=== PATIENT | female | born 1940 | race African-American/Black ===

== ENCOUNTER 2016-07-24 02:38 | Emergency (ER) | payer OTHER ==
[2016-07-24 02:54] VITALS: BP 148/74; PULSE 55; TEMP 97.5; BMI 21.6
--- NOTE | 2016-07-24 03:02 | PDOC ---
History of Present Illness - General History Source: EMS Exam Limitations: Dementia - History of Present Illness Initial Comments: 07/24/16 03:10 The patient is a 76 year old female with significant past medical history of severe alzheimer, hypertension, hyperlipidemia, and hypothyroidism who presents to the ED BIBA from [facility] with s/p unwitnessed fall. Unable to obtain history as patient has severe alzheimer. Unknown of LOC or trauma to the head. Allergies: NKDA Social History: No alcohol, tobacco, or drug use reported. Past Surgical History: None reported PCP: Dr. Khadra Jerez <Ana Conrad - Last Filed: 07/24/16 04:36> <Partha Marie - Last Filed: 07/24/16 04:42> - General Chief Complaint: Injury Stated Complaint: FALL Past History <Ana Conrad - Last Filed: 07/24/16 04:36> - Past Medical History Cardiac Disorders: Yes (bradycardia) Dementia: (ALZHEIMERS.) HTN: Yes Hypercholesterolemia: Yes Suicide Attempt (Hx): No Thyroid Disease: Yes (hypothyroid) Other medical history: aphasia, unsteady gait - Psycho/Social/Smoking Cessation Hx Anxiety: No Suicidal Ideation: No Smoking History: Never smoked Have you smoked in the past 12 months: No Hx Alcohol Use: No Drug/Substance Use Hx: No Substance Use Type: None <Partha Marie - Last Filed: 07/24/16 04:42> - Past Medical History Allergies/Adverse Reactions: Allergies Allergy/AdvReac Type Severity Reaction Status Date / Time strawberry Allergy Mild Hives Verified 07/24/16 02:51 tomato Allergy Mild Hives Verified 07/24/16 02:51 Home Medications: Ambulatory Orders Aspirin [ASA -] 81 mg PO DAILY 12/31/14 Atorvastatin Ca [Lipitor] 40 mg PO HS 04/18/16 Levothyroxine [Synthroid -] 50 mcg PO DAILY 04/18/16 Memantine HCl [Namenda Xr] 28 mg PO DAILY 04/18/16 Aspirin [ASA -] 81 mg PO DAILY tab.chew 04/21/16 Docusate Sodium [Colace -] 100 mg PO BID PRN #0 capsule 04/21/16 Docusate Sodium [Colace -] 100 mg PO Q12H PRN #0 capsule 04/21/16 Heparin - 5,000 unit SQ BID vial 04/21/16 Heparin - 5,000 unit SQ BID vial 04/21/16 Lisinopril [Prinivil] 20 mg PO DAILY tablet 04/21/16 Lisinopril [Prinivil] 20 mg PO DAILY #30 tablet 04/21/16 Polyethylene Glycol 3350 [Miralax 119 gm Btl -] 17 gm PO DAILY bottle 04/21/16 Review of Systems - Review of Systems Able to Perform ROS?: No Comments:: 07/24/16 03:11 Unable to obtain as patient has severe alzheimer. <Ana Conrad - Last Filed: 07/24/16 04:36> *Physical Exam - Vital Signs Last Vital Signs Temp Pulse Resp BP Pulse Ox 97.5 F L 55 L 18 148/74 100 07/24/16 02:51 07/24/16 02:51 07/24/16 02:51 07/24/16 02:51 07/24/16 02:51 - Physical Exam Comments: 07/24/16 03:11 GENERAL: Well developed, well nourished. Awake and alert. No acute distress. HEENT: Normocephalic, atraumatic. No racoon or dimas signs. PERRLA, EOMI. No conjunctival pallor. Sclera are non-icteric. No hemotympanum. Moist mucous membranes. Oropharynx is clear. NECK: Supple. Full ROM. No JVD. Carotid pulses 2+ and symmetric, without bruits. No thyromegaly. No lymphadenopathy. CARDIOVASCULAR: Regular rate and rhythm. No murmurs, rubs, or gallops. Distal pulses are 2+ and symmetric. PULMONARY: No evidence of respiratory distress. Lungs clear to auscultation bilaterally. No wheezing, rales or rhonchi. ABDOMINAL: Soft. Non-tender. Non-distended. No rebound or guarding. No organomegaly. Normoactive bowel sounds. MUSCULOSKELETAL Normal range of motion at all joints. No bony deformities or tenderness. No CVA tenderness. EXTREMITIES: No cyanosis. No clubbing. No edema. No calf tenderness. SKIN: Warm and dry. Normal capillary refill. No rashes. No jaundice. NEUROLOGICAL: Pt has severe alzheimer. Unable to answer questions. PSYCHIATRIC: Cooperative. Good eye contact. Appropriate mood and affect. <Ana Conrad - Last Filed: 07/24/16 04:36> - Vital Signs Last Vital Signs Temp Pulse Resp BP Pulse Ox 97.5 F L 55 L 18 148/74 100 07/24/16 02:51 07/24/16 02:51 07/24/16 02:51 07/24/16 02:51 07/24/16 02:51 <Partha Marie - Last Filed: 07/24/16 04:42> ED Treatment Course - LABORATORY CBC & Chemistry Diagram: 07/24/16 03:15 07/24/16 03:15 - RADIOLOGY Radiograph Interpretation: 07/24/16 04:36 EXAM: CT of the brain without contrast. Reviewed by Imaging corrections cadet: No gross intracranial hemorrhage, vasogenic edema/ gross contusion or fracture, assessment limited by motion. EXAM: CT of the cervical spine without contrast. Reviewed by Imaging corrections cadet: There is no fracture or facet subluxation; incidental developmental incomplete C1 dorsal arch. No prevertebral hematoma or gross acute epidural abnormality. Presumed degenerative T1/2 and T2/3 anterolisthesis; alignment is otherwise anatomic for the visualized volume, from skull base to T4/5. <Ana Conrad - Last Filed: 07/24/16 04:36> - LABORATORY CBC & Chemistry Diagram: 07/24/16 03:15 07/24/16 03:15 <Partha Marie - Last Filed: 07/24/16 04:42> *DC/Admit/Observation/Transfer - Attestations Scribe Attestion: 07/24/16 03:11 Documentation prepared by Ana Conrad, acting as medical physicist for Partha Marie MD, MD <Ana Conrad - Last Filed: 07/24/16 04:36> - Discharge Dispostion Admit: No <Partha Marie - Last Filed: 07/24/16 04:42> Diagnosis at time of Disposition: Injury of head Qualifiers: Encounter type: initial encounter Qualified Code(s): S09.90XA - Unspecified injury of head, initial encounter - Discharge Dispostion Disposition: HOME Condition at time of disposition: Stable - Referrals Referrals: Braulio Veronica MD [Primary Care Provider] -
[2016-07-24 03:29] LABS: EOSINOPHIL 1.2 % (0-4.5); MCH 30.8 pg (25.7-33.7); MCHC 32.9 g/dl (32.0-36.0); MEAN CELL VOLUME 93.5 fl (80-96); MEAN PLT VOLUME 9.7 fl (7.5-11.1); PLATELET COUNT 141 K/MM3 (134-434); RDW 13.8 % (11.6-15.6); WHITE BLOOD COUNT 4.1 K/mm3 (4.0-10.0)
[2016-07-24] MEDS ORDERED: MIDAZOLAM HCL 2 MG/2 ML SINGLE DOSE VIAL IVPUSH ONE (03:33)
[2016-07-24 03:42] LABS: INR 1.03 (0.82-1.09); PROTHROMBIN TIME (PATIENT) 11.3 SEC (9.98-11.88)
[2016-07-24] MEDS ORDERED: MIDAZOLAM HCL 2 MG/2 ML SINGLE DOSE VIAL ONE (03:44)
[2016-07-24 03:45] LABS: ACTIVATED PTT 35.2 SECONDS (26.9-34.4)
[2016-07-24 03:54] LABS: ALBUMIN 3.5 g/dl (3.4-5.0); ANION GAP 5 (8-16); BILIRUBIN,TOTAL 0.4 mg/dL (0.2-1.0); CALCIUM 9.3 mg/dL (8.5-10.1); CO2 32 mmol/L (21-32); CREATININE 0.9 mg/dL (0.55-1.02); GLUCOSE,RANDOM 91 mg/dL (74-106); SGOT/AST 13 U/L (15-37); SGPT/ALT 17 U/L (12-78)
[2016-07-24 03:55] LABS: ALK PHOS 106 U/L (45-117)
== END 2016-07-24 05:57 ==
LOC: JER 02:38
PROC: 3E033NZ Introduction of Analgesics, Hypnotics, Sedatives into Peripheral Vein, Percutaneous Approach (ICD-10-PCS; principal; 2016-07-24)
DX: S09.8XXA Other specified injuries of head, initial encounter (principal); W18.39XA Other fall on same level, initial encounter; Y93.89 Activity, other specified; Y92.128 Other place in nursing home as the place of occurrence of the external cause; I10 Essential (primary) hypertension; E78.5 Hyperlipidemia, unspecified; E78.00 Pure hypercholesterolemia, unspecified; E03.9 Hypothyroidism, unspecified; G30.8 Other Alzheimer's disease; F02.80 Dementia in other diseases classified elsewhere, unspecified severity, without behavioral disturbance, psychotic disturbance, mood disturbance, and anxiety
CPT/HCPCS: 36415; 70450-TC; 72125-TC; 72170-TC; 80053; 85025; 85610; 85730; 96374; 99281-25

== ENCOUNTER 2017-04-17 10:53 | Emergency (ER) | payer OTHER ==
[2017-04-17 11:05] VITALS: TEMP 98.5; BMI 20.1
[2017-04-17] MEDS ORDERED: FLUORESCEIN NA 1 EA STRIP OU ONE (11:47)
[2017-04-17] MEDS ORDERED: FLUORESCEIN NA 1 EA STRIP ONE (11:50)
[2017-04-17] MEDS ORDERED: TETRACAINE 0.5% HCL 0.6ML DROPPER.BOTTLE OU ONE (11:51)
[2017-04-17] MEDS ORDERED: TETRACAINE 0.5% OPHTH SOLN 2 ML BOTTLE ONE (11:51)
--- NOTE | 2017-04-17 12:01 | PDOC ---
History of Present Illness <Salazar Keyes - Last Filed: 04/17/17 12:00> <Nyla Kelsey - Last Filed: 04/17/17 12:14> - General Chief Complaint: Eye Problem Stated Complaint: EYE PROBLEM Time Seen by Provider: 04/17/17 11:12 Past History - Past Medical History Cardiac Disorders: Yes (bradycardia) COPD: No Dementia: (ALZHEIMERS.) HTN: Yes Hypercholesterolemia: Yes Thyroid Disease: Yes (hypothyroid) Other medical history: PARKINSONS. - Suicide/Smoking/Psychosocial Hx Smoking History: Never smoked Have you smoked in the past 12 months: No Hx Alcohol Use: No Drug/Substance Use Hx: No Substance Use Type: None <Salazar Keyes - Last Filed: 04/17/17 12:00> <Nyla Kelsey - Last Filed: 04/17/17 12:14> - Past Medical History Allergies/Adverse Reactions: Allergies Allergy/AdvReac Type Severity Reaction Status Date / Time strawberry Allergy Mild Hives Verified 04/17/17 11:05 tomato Allergy Mild Hives Verified 04/17/17 11:05 No Known Drug Allergies Allergy Verified 04/17/17 11:05 Home Medications: Ambulatory Orders Aspirin [ASA -] 81 mg PO DAILY 04/17/17 Atorvastatin Ca [Lipitor] 40 mg PO HS 04/17/17 Levothyroxine [Synthroid -] 50 mcg PO DAILY 04/17/17 Lisinopril/Hydrochlorothiazide [Lisinopril-Hctz 20-12.5 mg Tab] 1 each PO DAILY 04/17/17 Memantine HCl [Namenda Xr] 28 mg PO DAILY 04/17/17 Polyethylene Glycol 3350 [Miralax (For Daily Use) -] 17 gm PO DAILY 04/17/17 Sennosides [Senna Concentrate] 8.6 mg PO HS 04/17/17 *Physical Exam - Vital Signs Last Vital Signs Temp Pulse Resp BP Pulse Ox 98.5 F 100 H 18 122/69 100 04/17/17 11:01 04/17/17 11:01 04/17/17 11:01 04/17/17 11:01 04/17/17 11:01 <Salazar Keyes - Last Filed: 04/17/17 12:00> - Vital Signs Last Vital Signs Temp Pulse Resp BP Pulse Ox 98.5 F 100 H 18 122/69 100 04/17/17 11:01 04/17/17 11:01 04/17/17 11:01 04/17/17 11:01 04/17/17 11:01 <Nyla Kelsey - Last Filed: 04/17/17 12:14> ED Treatment Course - Medications Given in the ED: ED Medications Discontinued Medications Generic Name Dose Route Start Last Admin Trade Name Freq PRN Reason Stop Dose Admin Fluorescein Sodium 0 ea 04/17/17 11:47 04/17/17 11:50 Fluorets - OU 04/17/17 11:48 1 ea ONCE ONE Administration Tetracaine HCl 1 drop 04/17/17 11:51 04/17/17 11:52 Tetravisc 0.5% Eye Drops - OU 04/17/17 11:52 1 drop ONCE ONE Administration <Salazar Keyes - Last Filed: 04/17/17 12:00> - Medications Given in the ED: ED Medications Discontinued Medications Generic Name Dose Route Start Last Admin Trade Name Freq PRN Reason Stop Dose Admin Fluorescein Sodium 0 ea 04/17/17 11:47 04/17/17 11:50 Fluorets - OU 04/17/17 11:48 1 ea ONCE ONE Administration Tetracaine HCl 1 drop 04/17/17 11:51 04/17/17 11:52 Tetravisc 0.5% Eye Drops - OU 04/17/17 11:52 1 drop ONCE ONE Administration <Nyla Kelsey - Last Filed: 04/17/17 12:14> Medical Decision Making - Medical Decision Making 04/17/17 12:08 77-year-old female presents with bilateral sub-conjunctival hemorrhage. Fluorescein testing is negative for abrasion or defect. Will discharge patient with artificial tears, as the patient's daughter reports that the patient is frequently rubbing her eyes. I discussed the physical exam findings, ancillary test results and final diagnoses with the patient. I answered all of the patient's questions. The patient was satisfied with the care received and felt comfortable with the discharge plan and treatment plan. The patient will call their primary care physician within 24 hours to arrange follow-up and will return to the Emergency Department with any new, persistent or worsening symptoms. <Nyla Kelsey - Last Filed: 04/17/17 12:14> *DC/Admit/Observation/Transfer <Salazar Keyes - Last Filed: 04/17/17 12:00> - Discharge Dispostion Admit: No - Attestations Physician Attestion: 04/17/17 12:14 I, Dr. Nyla Kelsey MD, attest that this document has been prepared under my direction and personally reviewed by me in its entirety. I further attest, that it accurately reflects all work, treatment, procedures and medical decision -making performed by me. <Nyla Kelsey - Last Filed: 04/17/17 12:14> Diagnosis at time of Disposition: Subconjunctival hemorrhage of both eyes - Discharge Dispostion Disposition: HOME Condition at time of disposition: Stable - Referrals Referrals: Khadra Montanez MD [Primary Care Provider] - - Patient Instructions - Post Discharge Activity
--- NOTE | 2017-04-17 12:22 | PDOC ---
History of Present Illness - General History Source: Family Exam Limitations: Other - History of Present Illness Initial Comments: 04/17/17 12:38 77 year old female, Alzheimers dementia, HTN, HLD, hypothyroidism, who presents to the emergency room with complaining of redness in her eyes bilaterally x 3days. The patient is nonverbal and history was obtained from her daughter. She states that her left eye appeared bloodshot 3 days ago and has been increasingly red since. Her right eye also became blood shot yesterday, which concerned her daughter so she brought her to the ER. The daughter reports the patient has dry eyes and they have a dog and cat at home which cause the patient to occasionally rub her eyes. She notes that this has happened to the patient before and the redness resolved on its own. Denies recent illness. Denies vomiting, cough, sneezing, constipation. Pt had normal exam at the dozer operator 1 month ago. Allergies: NKDA PCP: Dr. Khadra Longo <Yamile Leung - Last Filed: 04/17/17 12:38> <Nyla Kelsey - Last Filed: 04/17/17 14:10> - General Chief Complaint: Eye Problem Stated Complaint: EYE PROBLEM Time Seen by Provider: 04/17/17 11:12 Past History <Yamile Leung - Last Filed: 04/17/17 12:38> - Past Medical History Cardiac Disorders: Yes (bradycardia) COPD: No Dementia: (ALZHEIMERS.) HTN: Yes Hypercholesterolemia: Yes Thyroid Disease: Yes (hypothyroid) Other medical history: PARKINSONS. - Suicide/Smoking/Psychosocial Hx Smoking History: Never smoked Have you smoked in the past 12 months: No Hx Alcohol Use: No Drug/Substance Use Hx: No Substance Use Type: None <Nyla Kelsey - Last Filed: 04/17/17 14:10> - Past Medical History Allergies/Adverse Reactions: Allergies Allergy/AdvReac Type Severity Reaction Status Date / Time strawberry Allergy Mild Hives Verified 04/17/17 11:05 tomato Allergy Mild Hives Verified 04/17/17 11:05 No Known Drug Allergies Allergy Verified 04/17/17 11:05 Home Medications: Ambulatory Orders Aspirin [ASA -] 81 mg PO DAILY 04/17/17 Atorvastatin Ca [Lipitor] 40 mg PO HS 04/17/17 Dextran 70/Hypromellose/Pf [Artificial Tears Drops] 1 each OP BID #30 droperette 04/17/17 Levothyroxine [Synthroid -] 50 mcg PO DAILY 04/17/17 Lisinopril/Hydrochlorothiazide [Lisinopril-Hctz 20-12.5 mg Tab] 1 each PO DAILY 04/17/17 Memantine HCl [Namenda Xr] 28 mg PO DAILY 04/17/17 Polyethylene Glycol 3350 [Miralax (For Daily Use) -] 17 gm PO DAILY 04/17/17 Sennosides [Senna Concentrate] 8.6 mg PO HS 04/17/17 Review of Systems - Review of Systems Able to Perform ROS?: No (Pt is nonverbal) <Yamile Leung - Last Filed: 04/17/17 12:38> *Physical Exam - Vital Signs Last Vital Signs Temp Pulse Resp BP Pulse Ox 98.5 F 100 H 18 122/69 100 04/17/17 11:01 04/17/17 11:01 04/17/17 11:01 04/17/17 11:01 04/17/17 11:01 - Physical Exam Comments: 04/17/17 12:39 GENERAL: Awake, alert, nonverbal, in no acute distress. Pt visualized rubbing eyes during exam multiple times. HEAD: No signs of trauma EYES: PERRLA, EOMI, Fluorescene testing with no evidence of abrasion or defect, negative Dennis's test. Unable to test visual acuity as pt is non verbal. No hyphema visualized. OS: subconjunctival hemorrhage on the lateral + inferior aspect of the eye OD: medial subconjunctival hemorrhage ENT: Auricles normal inspection, hearing grossly normal, nares patent, oropharynx clear without exudates. Moist mucosa NECK: Normal ROM, supple, no lymphadenopathy, JVD, or masses LUNGS: Breath sounds equal, clear to auscultation bilaterally. No wheezes, and no crackles HEART: Regular rate and rhythm, normal S1 and S2, no murmurs, rubs or gallops NEUROLOGICAL: Nonverbal, cranial nerves grossly intact, normal tone, moving all 4 extremities SKIN: Warm, Dry, normal turgor, no rashes or lesions noted. <Yamile Leung - Last Filed: 04/17/17 12:38> - Vital Signs Last Vital Signs Temp Pulse Resp BP Pulse Ox 98.5 F 100 H 18 122/69 100 04/17/17 11:01 04/17/17 11:01 04/17/17 11:01 04/17/17 11:01 04/17/17 11:01 <Nyla Kelsey - Last Filed: 04/17/17 14:10> ED Treatment Course - Medications Given in the ED: ED Medications Discontinued Medications Generic Name Dose Route Start Last Admin Trade Name Freq PRN Reason Stop Dose Admin Fluorescein Sodium 0 ea 04/17/17 11:47 04/17/17 11:50 Fluorets - OU 04/17/17 11:48 1 ea ONCE ONE Administration Tetracaine HCl 1 drop 04/17/17 11:51 04/17/17 11:52 Tetravisc 0.5% Eye Drops - OU 04/17/17 11:52 1 drop ONCE ONE Administration <Yamile Leung - Last Filed: 04/17/17 12:38> - Medications Given in the ED: ED Medications Discontinued Medications Generic Name Dose Route Start Last Admin Trade Name Freq PRN Reason Stop Dose Admin Fluorescein Sodium 0 ea 04/17/17 11:47 04/17/17 11:50 Fluorets - OU 04/17/17 11:48 1 ea ONCE ONE Administration Tetracaine HCl 1 drop 04/17/17 11:51 04/17/17 11:52 Tetravisc 0.5% Eye Drops - OU 04/17/17 11:52 1 drop ONCE ONE Administration <Nyla Kelsey - Last Filed: 04/17/17 14:10> Medical Decision Making - Medical Decision Making 04/17/17 12:21 77-year-old female presents with bilateral sub-conjunctival hemorrhage patient likely due to frequently rubbing her eyes. Fluorescein testing is negative for abrasion or defect. Will discharge patient with artificial tears for dryness. I discussed the physical exam findings, ancillary test results and final diagnoses with the patient. I answered all of the patient's questions. The patient was satisfied with the care received and felt comfortable with the discharge plan and treatment plan. The patient will call their primary care physician within 24 hours to arrange follow-up and will return to the Emergency Department with any new, persistent or worsening symptoms. <Nyla Kelsey - Last Filed: 04/17/17 14:10> *DC/Admit/Observation/Transfer - Attestations Scribe Attestion: 04/17/17 12:39 Documentation prepared by BALAJI Delacruz, acting as medical asst for Nyla Kelsey MD. <Yamile Leung - Last Filed: 04/17/17 12:38> - Attestations Physician Attestion: 04/17/17 12:21 I, Dr. Nyla Kelsey MD, attest that this document has been prepared under my direction and personally reviewed by me in its entirety. I further attest, that it accurately reflects all work, treatment, procedures and medical decision -making performed by me. <Nyla Kelsey - Last Filed: 04/17/17 14:10> Diagnosis at time of Disposition: Subconjunctival hemorrhage of both eyes - Discharge Dispostion Disposition: HOME Condition at time of disposition: Stable - Prescriptions Prescriptions: Dextran 70/Hypromellose/Pf [Artificial Tears Drops] 1 each OP BID #30 droperette - Referrals Referrals: Khadra Montanez MD [Primary Care Provider] - - Patient Instructions Printed Discharge Instructions: DI for Subconjunctival Hemorrhage Additional Instructions: Please follow up with your primary care doctor and dozer operator within 1 week. Return to the emergency department if Ms. Ng has any new, worsening, or concerning symptoms. - Post Discharge Activity
[2017-04-17 12:38] VITALS: BP 118/70; PULSE 94
== END 2017-04-17 12:59 | disposition home or self-care (01) ==
LOC: JER 10:53
DX: H11.33 Conjunctival hemorrhage, bilateral (principal); G30.9 Alzheimer's disease, unspecified; F02.80 Dementia in other diseases classified elsewhere, unspecified severity, without behavioral disturbance, psychotic disturbance, mood disturbance, and anxiety; G20 Parkinson's disease; I10 Essential (primary) hypertension; E78.00 Pure hypercholesterolemia, unspecified; E03.9 Hypothyroidism, unspecified
CPT/HCPCS: 99282-25

== ENCOUNTER 2018-02-19 14:03 | Emergency (ER) | payer OTHER ==
--- NOTE | 2018-02-19 14:23 | PDOC ---
History of Present Illness - General Stated Complaint: Syncope/Near Syncope Time Seen by Provider: 02/19/18 14:11 - History of Present Illness Initial Comments: 02/19/18 14:12 78 year old female with a significant h/o HTN, HLD, bradycardia, Alzheimer's Dementia, hypothyroidism BIBA with syncope. Patient non verbal, and non communicative at baseline. Home health aide reports patient ambulating from bathroom, to kitchen, when she experienced sudden onset lightheadedness, and appeared "faint." Home health aide assisted patient to floor, in assisted supine positioning. She did not witness convulsions, tongue biting, urinary incontinence, and patient remained lethargic appearing for minutes of unknown duration. Patient in normal state of health today. She took her daily Levothyroxine. Daughter at bedside reports similar h/o syncope . Patient family denies head/neck trauma, LOC, N/V, F/C, orthopnea, PND, leg swelling, cough, CP, SOB, urinary complaints, abdominal pain, diarrhea, constipation, weakness. PMHx: as noted above. Daughter denies h/o ACS/MD, PE, CVA/TIA. ROS: as noted SHx: Denies Etoh, IVDA, tobacco Allergies: NKDA PMD: Dr. Gonsalez Past History - Past Medical History Allergies/Adverse Reactions: Allergies Allergy/AdvReac Type Severity Reaction Status Date / Time strawberry Allergy Mild Hives Verified 04/17/17 11:05 tomato Allergy Mild Hives Verified 04/17/17 11:05 No Known Drug Allergies Allergy Verified 04/17/17 11:05 Home Medications: Ambulatory Orders Aspirin [ASA -] 81 mg PO DAILY 04/17/17 Atorvastatin Ca [Lipitor] 40 mg PO HS 04/17/17 Dextran 70/Hypromellose/Pf [Artificial Tears Drops] 1 each OP BID #30 droperette 04/17/17 Levothyroxine [Synthroid -] 50 mcg PO DAILY 04/17/17 Lisinopril/Hydrochlorothiazide [Lisinopril-Hctz 20-12.5 mg Tab] 1 each PO DAILY 04/17/17 Memantine HCl [Namenda Xr] 28 mg PO DAILY 04/17/17 Polyethylene Glycol 3350 [Miralax (For Daily Use) -] 17 gm PO DAILY 04/17/17 Sennosides [Senna Concentrate] 8.6 mg PO HS 04/17/17 Cephalexin Monohydrate [Keflex -] 500 mg PO BID #14 capsule MDD 2 tab 02/19/18 Cardiac Disorders: Yes (bradycardia) COPD: No Dementia: (ALZHEIMERS.) HTN: Yes Hypercholesterolemia: Yes Thyroid Disease: Yes (hypothyroid) - Suicide/Smoking/Psychosocial Hx Smoking History: Never smoked Have you smoked in the past 12 months: No Hx Alcohol Use: No Drug/Substance Use Hx: No Substance Use Type: None Review of Systems - Review of Systems Comments:: 02/19/18 14:27 Unable to obtain, non verbal, and non communicative at baseline. *Physical Exam - Physical Exam Comments: 02/19/18 14:28 GENERAL: Awake, alert, and fully oriented, in no acute distress. Patient non verbal at baseline. HEAD: No signs of trauma, normocephalic, atraumatic EYES: PERRLA, EOMI, sclera anicteric, conjunctiva clear ENT: Auricles normal inspection, hearing grossly normal, nares patent, oropharynx clear without exudates. Moist mucosa NECK: Normal ROM, supple, no lymphadenopathy, JVD, or masses LUNGS: No distress, speaks full sentences, clear to auscultation bilaterally HEART: Regular rate and rhythm, normal S1 and S2, no murmurs, rubs or gallops, peripheral pulses normal and equal bilaterally. ABDOMEN: Soft, nontender, normoactive bowel sounds. No guarding, no rebound. No masses. Neg CVA ttp. EXTREMITIES : Normal inspection, Normal range of motion, no edema. No clubbing or cyanosis. NEUROLOGICAL: Cranial nerves II through XII grossly intact. No focal sensorimotor deficits. SKIN: Warm, Dry, normal turgor, no rashes or lesions noted ED Treatment Course - LABORATORY CBC & Chemistry Diagram: 02/19/18 15:30 02/19/18 16:20 Medical Decision Making - Medical Decision Making 02/19/18 14:26 78 year old female with a significant h/o HTN, HLD, bradycardia, Alzheimer's Dementia, hypothyroidism BIBA with syncope. Patient noted to be slightly hypotensive SBP 90, received 500 cc NS in route to hospital. VSS, AF. ACS/MD r/ o. R/o VBI/TIA. Will consider hypoglycemia, hypovolemia, cardiac dysarrythmia, electrolyte abnml, toxic and metabolic derangements, acid-base disturbances, and infection. ED Course: CBC, CMP, Cardiac Pr. Pt/INR, UA, Urine Cx. EKG, CXR [facility] 02/19/18 15:12 EKG: Sinus bradycardia 59 with absent acute JUVE, STD. T wave similar to prior EKG with T wave inv V3, flattened T Waves V4-V6. 02/19/18 16:20 CBC: Unremarkable 02/19/18 17:28 CXR: No acute pathology. 02/19/18 17:52 CMP: Unremarkable 02/19/18 17:53 Trop: Neg 02/19/18 18:25 CTH: No acute pathology. 02/19/18 18:53 UA: 2+ Leuk, 1+ blood, 89 wbc, 7 RBC. Keflex sent to pharmacy Pt. stable for d/c with return precautions. Advised to f/u with PMD. *DC/Admit/Observation/Transfer Diagnosis at time of Disposition: Syncope Qualifiers: Syncope type: unspecified Qualified Code(s): R55 - Syncope and collapse - Discharge Dispostion Condition at time of disposition: Stable - Prescriptions Prescriptions: Cephalexin Monohydrate [Keflex -] 500 mg PO BID #14 capsule MDD 2 tab - Referrals Referrals: Talon Gonsalez MD [Primary Care Provider] - - Patient Instructions Printed Discharge Instructions: DI for Syncope in Adults (Fainting), DI for Urinary Tract Infection (UTI) Additional Instructions: Please return to the emergency department with any new or worsening symptoms or concerns. Please follow up with your primary care physician within 72 hours. Keflex sent to pharmacy. Please take Keflex two times a day for 7 days. - Post Discharge Activity - Attestations Physician Attestion: 02/19/18 14:45 I attest to the information provided in this note.
[2018-02-19 14:37] VITALS: BMI 20.9
--- NOTE | 2018-02-19 15:02 | PDOC ---
Attending Attestation - HPI HPI: The patient is a 78 year old female with a significant PMHx of HTN, HLD, bradycardia, Alzheimer's Dementia, and hypothyroidism, who was BIBA s/p near syncopal episode. Patient non verbal, and non communicative at baseline. As per LIBRARIAN SPECIALIST, patient felt lightheaded on her way to the kitchen. Her LIBRARIAN SPECIALIST helped her to the ground and she remained lethargic and seemed altered mentally with a blank stare on her face. Daughter reports similar h/o syncope 1 month ago. <Kaitlynn Mckeon - Last Filed: 02/19/18 16:04> - Resident Resident Name: Luis Felipe Lambert - ED Attending Attestation I have performed the following: I have examined & evaluated the patient, The case was reviewed & discussed with the resident, I agree w/resident's findings & plan, Exceptions are as noted - Physicial Exam PE: 02/19/18 16:06 Ms Ng is Awake and attends to examiner She is in no distress She is independently sitting up and moving all extremities RRR CTA no abd tenderness to palpation - Medical Decision Making 02/19/18 16:06 78 yo F who presents again to the ER s/p ?presyncopal event will do basic labs, trop EKG CT head given IVF Re assess Pt may be able to discharged to home (pt daughter refusing admission) 02/19/18 16:13 EKG: Sinus rhythm, rate of 59 bpm, axis nml, no st elevations or depressions, t wave inversion v3, v4 (similar to prior EKG) Pt signed out to Dr. Cruz <Jenniffer Arce - Last Filed: 02/21/18 10:21>
[2018-02-19 15:47] LABS: BASO % 0.3 % (0-2.0); EOS % 0.5 % (0-4.5); HEMATOCRIT 30.9 % (32.4-45.2); HEMOGLOBIN 10.2 GM/dL (10.7-15.3); LYMPH % 10.6 % (8-40); MCH 31.4 pg (25.7-33.7); MCHC 33.1 g/dl (32.0-36.0); MEAN CELL VOLUME 94.8 fl (80-96); MEAN PLT VOLUME 9.5 fl (7.5-11.1); MONO % 6.2 % (3.8-10.2); NEUT % 82.4 % (42.8-82.8); PLATELET COUNT 166 K/MM3 (134-434); RBC 3.25 M/mm3 (3.60-5.2); WHITE BLOOD COUNT 8.2 K/mm3 (4.0-10.0)
[2018-02-19 15:57] LABS: INR 1.02 (0.83-1.09); PROTHROMBIN TIME (PATIENT) 11.5 SEC (9.7-13.0)
--- NOTE | 2018-02-19 16:59 | PDOC ---
*Physical Exam - Vital Signs Last Vital Signs Temp Pulse Resp BP Pulse Ox 98.8 F 64 20 146/77 97 02/19/18 14:34 02/19/18 14:34 02/19/18 14:34 02/19/18 14:34 02/19/18 14:34 - Physical Exam Comments: 02/19/18 18:30 Gen: awake, nonverbal at baseline, at baseline MS heart: +s1s2 reg Lungs: cta b/l abd: soft, nt/nd +bs ext: no c/c/e, radial and pedal pulses intact, moving all extremities, ambulates with assistance neuro: at baseline MS, nonverbal at baseline, moving all extremities, no focal deficits ED Treatment Course - LABORATORY CBC & Chemistry Diagram: 02/19/18 15:30 02/19/18 16:20 - ADDITIONAL ORDERS Additional order review: Laboratory Results 02/19/18 02/19/18 13:30 13:30 PT with INR 11.50 INR 1.02 Creatine Kinase Cancelled Troponin I Cancelled 02/19/18 15:30 RBC 3.25 L MCV 94.8 MCHC 33.1 RDW 15.0 MPV 9.5 Neutrophils % 82.4 Lymphocytes % 10.6 Monocytes % 6.2 Eosinophils % 0.5 Basophils % 0.3 Medical Decision Making - Medical Decision Making 02/19/18 18:36 a/p: 78yo female with an episode of becoming nonresponsive -hx of UTI -had low bp earlier -pt signed out pending labs and ct -head ct negative for acute findings cxr negative for acute findings ekg is nonacute labs reviewed - normal wbc pt with a uti after straight cath, culture pending -will give keflex for uti at home resident discussed the findings with the daughter who is requesting to take hte patient home *DC/Admit/Observation/Transfer Diagnosis at time of Disposition: Syncope Qualifiers: Syncope type: unspecified Qualified Code(s): R55 - Syncope and collapse - Discharge Dispostion Condition at time of disposition: Stable - Referrals Referrals: Talon Gonsalez MD [Primary Care Provider] - - Patient Instructions Printed Discharge Instructions: DI for Syncope in Adults (Fainting) Additional Instructions: Please return to the emergency department with any new or worsening symptoms or concerns. Please follow up with your primary care physician within 72 hours. - Post Discharge Activity
[2018-02-19 17:47] LABS: ALBUMIN 3.4 g/dl (3.4-5.0); ALK PHOS 91 U/L (45-117); ANION GAP 11 MMOL/L (8-16); BILIRUBIN,TOTAL 0.4 mg/dL (0.2-1); BLOOD UREA NITROGEN 30 mg/dL (7-18); CALCIUM 9.2 mg/dL (8.5-10.1); CHLORIDE 113 mmol/L (98-107); CO2 21 mmol/L (21-32); CREATININE 0.8 mg/dL (0.55-1.3); GLUCOSE,RANDOM 83 mg/dL (74-106); POTASSIUM 4.2 mmol/L (3.5-5.1); SGOT/AST 22 U/L (15-37); SGPT/ALT 14 U/L (13-61); SODIUM 145 mmol/L (136-145); TOT PROT 7.5 g/dl (6.4-8.2)
[2018-02-19 18:26] LABS: URINE APPEARANCE SLCLOUDY; URINE BILIRUBIN NEGATIVE (<2.0 mg/dL); URINE COLOR LTYELLOW; URINE GLUCOSE (UA) NEGATIVE (NEGATIVE); URINE KETONE NEGATIVE (NEGATIVE); URINE NITRITE NEGATIVE (NEGATIVE); URINE PROTEIN NEGATIVE (NEGATIVE); URINE UROBILINOGEN NEGATIVE mg/dL (0.2-1.0)
[2018-02-19 18:27] LABS: URINE LEUK ESTERASE 2+ (NEGATIVE)
[2018-02-19 18:35] LABS: EPI CELLS RARE /HPF (FEW); URINE MUCUS RARE
[2018-02-19] MEDS ORDERED: CEPHALEXIN MONOHYDRATE 500 MG CAPSULE (UD) PO ONE (18:39)
[2018-02-19] MEDS ORDERED: CEPHALEXIN MONOHYDRATE 500 MG CAPSULE (UD) ONE (18:47)
[2018-02-19 19:02] VITALS: BP 148/68; PULSE 58; TEMP 98.1
--- NOTE | 2018-02-20 09:35 | EKG ---
Test Reason : Blood Pressure : / mmHG Vent. Rate : 059 BPM Atrial Rate : 059 BPM P-R Int : 124 ms QRS Dur : 094 ms QT Int : 436 ms P-R-T Axes : 052 066 037 degrees QTc Int : 431 ms SINUS BRADYCARDIA MODERATE VOLTAGE CRITERIA FOR LVH, MAY BE NORMAL VARIANT LATERAL INFARCT , AGE UNDETERMINED ABNORMAL ECG WHEN COMPARED WITH ECG OF 24-NOV-2017 14:51, NO SIGNIFICANT CHANGE WAS FOUND Confirmed by NUNU BALL, DALTON ([id number]) on 02/20/2018 9:35:44 AM Referred By: Confirmed By:DALTON EDDY MD
== END 2018-02-19 19:02 | disposition home or self-care (01) ==
LOC: JER 14:03
DX: R55 Syncope and collapse (principal); G30.9 Alzheimer's disease, unspecified; F02.80 Dementia in other diseases classified elsewhere, unspecified severity, without behavioral disturbance, psychotic disturbance, mood disturbance, and anxiety; F05 Delirium due to known physiological condition; I10 Essential (primary) hypertension; E78.5 Hyperlipidemia, unspecified; E03.9 Hypothyroidism, unspecified
CPT/HCPCS: 36415; 70450-TC; 71045-TC-FY; 80053; 81003; 81015; 82550; 84484; 85025; 85610; 87086; 93005; 93010; 99284-25

== ENCOUNTER 2018-03-06 11:55 | Emergency (ER) | payer OTHER ==
[2018-03-06 12:32] VITALS: BMI 21.7
--- NOTE | 2018-03-06 12:59 | PDOC ---
Attending Attestation - Resident Resident Name: Bell Estrella - ED Attending Attestation I have performed the following: I have examined & evaluated the patient, The case was reviewed & discussed with the resident, I agree w/resident's findings & plan, Exceptions are as noted - HPI HPI: 03/06/18 12:57 Ms Ng is a 78 yo F h/o HTN, bradycardia, parkinsons and alzheimers Two days ago, pt went for a walk, pt had difficulty sitting fell forward and struck her head At the time pt was well, no complaints Today, while in the car, pt began vomiting x 2 Emesis is yellow, no blood - Physicial Exam PE: 03/06/18 17:45 Pt is awake and alert on my examination She is in no distress She is independently sitting up and moving all extremities RRR CTA no abd tenderness to palpation - Medical Decision Making EKG: Poor quality due to patient movement HR 48, axis nml, intervals nml, no st elevations or depression, t waves upright , artifact at baseline 03/06/18 17:46 Laboratory Tests 02/19/18 03/06/18 03/06/18 14:12 13:21 13:21 WBC 6.7 Hgb 10.4 L Hct 32.7 Plt Count 159 BUN 30 H 27 H Creatinine 0.8 0.9 Troponin I < 0.02 Urine Blood Urine Nitrite Ur Leukocyte Esterase 03/06/18 15:22 WBC Hgb Hct Plt Count BUN Creatinine Troponin I Urine Blood Negative Urine Nitrite Negative Ur Leukocyte Esterase Negative CT: no significant intracranial pathology Per daughter, pt's primary child care lead teacher, pt is back to baseline She would like to be discharged to home 03/06/18 17:47 03/06/18 17:52 Discharge Disposition - Diagnosis Head trauma Qualifiers: Encounter type: initial encounter Qualified Code(s): S09.90XA - Unspecified injury of head, initial encounter Nausea & vomiting Qualifiers: Vomiting type: unspecified Vomiting Intractability: non-intractable Qualified Code(s): R11.2 - Nausea with vomiting, unspecified - Discharge Dispostion Disposition: HOME Condition at time of disposition: Stable Last Admission D/C Date: 04/23/16 Decision to Admit order: No - Referrals Referrals: Talon Gonsalez MD [Primary Care Provider] - - Patient Instructions Printed Discharge Instructions: DI for Closed Head Injury, DI for Nausea -- Adult, DI for Vomiting -- Adult Additional Instructions: Please read the [facility] ED Care Sheets describing your diagnosis. PLEASE NOTE we suggest at a minimum that you review all symptoms and final test results with a physician that will provide ongoing care for you. THANK YOU for allowing us to help begin your care of this latest issue. Keep in mind the treatment performed in the Emergency Department is NOT complete until you have followed up with your Doctor. We want you to return to the ED as soon as possible if symptoms get worse or if you have any problems whatsoever. - Post Discharge Activity
--- NOTE | 2018-03-06 13:37 | PDOC ---
History of Present Illness - General Chief Complaint: Nausea/Vomiting Stated Complaint: Nausea/Vomiting Time Seen by Provider: 03/06/18 12:48 - History of Present Illness Initial Comments: 03/06/18 13:37 The patient is a 78 year old female with a PMH of Alzheimer's dementia (non- verbal @ baseline), HTN, HLD, hypothyroidism who presents to the ED with 2 episodes of yellowish colored emesis. Patient's daughter @ bedside assists in history. Notes patient had two episodes of emesis earlier today. Has been tolerating PO intake. Last BM was this morning and was normal. Patient's daughter brought patient to ED because she noted that patient fell earlier this week and hit her head. After patient fell, daughter observed her for three hours and noted no mental status changes. Today, patient had two episodes of NBNB emesis prompting daughter to bring her to the ED. NKDA Surgical: denies Social: denies toxic habits PMD: Dr. Khadra Longo Past History - Past Medical History Allergies/Adverse Reactions: Allergies Allergy/AdvReac Type Severity Reaction Status Date / Time strawberry Allergy Mild Hives Verified 04/17/17 11:05 tomato Allergy Mild Hives Verified 04/17/17 11:05 No Known Drug Allergies Allergy Verified 04/17/17 11:05 Home Medications: Ambulatory Orders Aspirin [ASA -] 81 mg PO DAILY 04/17/17 Atorvastatin Ca [Lipitor] 40 mg PO HS 04/17/17 Dextran 70/Hypromellose/Pf [Artificial Tears Drops] 1 each OP BID #30 droperette 04/17/17 Levothyroxine [Synthroid -] 50 mcg PO DAILY 04/17/17 Lisinopril/Hydrochlorothiazide [Lisinopril-Hctz 20-12.5 mg Tab] 1 each PO DAILY 04/17/17 Memantine HCl [Namenda Xr] 28 mg PO DAILY 04/17/17 Polyethylene Glycol 3350 [Miralax (For Daily Use) -] 17 gm PO DAILY 04/17/17 Sennosides [Senna Concentrate] 8.6 mg PO HS 04/17/17 Cardiac Disorders: Yes (bradycardia) COPD: No Dementia: Yes (ALZHEIMERS.) HTN: Yes Hypercholesterolemia: Yes Thyroid Disease: Yes (hypothyroid) - Suicide/Smoking/Psychosocial Hx Smoking History: Never smoked Have you smoked in the past 12 months: No Information on smoking cessation initiated: No Hx Alcohol Use: No Drug/Substance Use Hx: No Substance Use Type: None Review of Systems - Review of Systems Able to Perform ROS?: No (clinical condition) *Physical Exam - Vital Signs Last Vital Signs Temp Pulse Resp BP Pulse Ox 98.5 F 57 L 18 196/83 H 99 03/06/18 12:51 03/06/18 12:30 03/06/18 12:30 03/06/18 12:30 03/06/18 12:30 - Physical Exam General Appearance: Yes: Nourished, Appropriately Dressed HEENT: positive: Normal Voice, Hearing Grossly Normal. negative: Lesions, Lehman Neck: positive: Trachea midline, Supple Respiratory/Chest: positive: Lungs Clear, Normal Breath Sounds Cardiovascular: positive: S1, S2. negative: Edema, JVD Vascular Pulses: Dorsalis-Pedis (R): 3+, Doralis-Pedis (L): 3+ Gastrointestinal/Abdominal: positive: Normal Bowel Sounds, Soft Extremity: positive: Normal Capillary Refill, Normal Inspection, Pelvis Stable. negative: Coldness, Cyanosis Integumentary: positive: Normal Color, Dry, Warm Neurologic: positive: Alert, Responsive ED Treatment Course - LABORATORY CBC & Chemistry Diagram: 03/06/18 13:21 03/06/18 13:21 - RADIOLOGY Radiology Studies Ordered: Category Date Time Status HEAD CT WITHOUT CONTRAST [CT] Stat CT Scan 03/06/18 12:57 Ordered Medical Decision Making - Medical Decision Making 03/06/18 13:38 78 year old female with nausea/vomiting. H/o fall with head trauma 3 days previous. Drowsy but arousable at presentation (baseline). Has been ambulating and was at baseline post fall. Will CT head to r/o bleed as well as basic labs, lipase, UA to r/o other causes of fall. 03/06/18 14:36 Labs unremarkable, Hb stable @ [address] negative for acute bleed/ischemia Will discharge home with return precautions and PMD follow-up. *DC/Admit/Observation/Transfer Diagnosis at time of Disposition: Nausea & vomiting Qualifiers: Vomiting type: unspecified Vomiting Intractability: non-intractable Qualified Code(s): R11.2 - Nausea with vomiting, unspecified - Discharge Dispostion Disposition: HOME Condition at time of disposition: Stable Decision to Admit order: No - Referrals Referrals: Talon Gonsalez MD [Primary Care Provider] - - Patient Instructions Printed Discharge Instructions: DI for Closed Head Injury, DI for Nausea -- Adult, DI for Vomiting -- Adult Additional Instructions: Please read the [facility] ED Care Sheets describing your diagnosis. PLEASE NOTE we suggest at a minimum that you review all symptoms and final test results with a physician that will provide ongoing care for you. THANK YOU for allowing us to help begin your care of this latest issue. Keep in mind the treatment performed in the Emergency Department is NOT complete until you have followed up with your Doctor. We want you to return to the ED as soon as possible if symptoms get worse or if you have any problems whatsoever. - Post Discharge Activity
[2018-03-06 13:50] LABS: BASO % 0.9 % (0-2.0); EOS % 0.5 % (0-4.5); HEMATOCRIT 32.7 % (32.4-45.2); HEMOGLOBIN 10.4 GM/dL (10.7-15.3); LYMPH % 14.4 % (8-40); MCH 30.2 pg (25.7-33.7); MCHC 31.9 g/dl (32.0-36.0); MEAN CELL VOLUME 94.6 fl (80-96); MEAN PLT VOLUME 9.5 fl (7.5-11.1); MONO % 4.7 % (3.8-10.2); NEUT % 79.5 % (42.8-82.8); PLATELET COUNT 159 K/MM3 (134-434); RBC 3.46 M/mm3 (3.60-5.2); RDW 14.6 % (11.6-15.6); WHITE BLOOD COUNT 6.7 K/mm3 (4.0-10.0)
[2018-03-06 14:08] LABS: ALBUMIN 3.4 g/dl (3.4-5.0); ALK PHOS 92 U/L (45-117); AMYLASE 100 U/L (25-115); ANION GAP 6 MMOL/L (8-16); BILIRUBIN,TOTAL 0.3 mg/dL (0.2-1); BLOOD UREA NITROGEN 27 mg/dL (7-18); CHLORIDE 110 mmol/L (98-107); CO2 28 mmol/L (21-32); CREATININE 0.9 mg/dL (0.55-1.3); GLUCOSE,RANDOM 90 mg/dL (74-106); LIPASE 167 U/L (73-393); MAGNESIUM 2.2 mg/dL (1.8-2.4); POTASSIUM 3.7 mmol/L (3.5-5.1); SGOT/AST 17 U/L (15-37); SGPT/ALT 14 U/L (13-61); SODIUM 144 mmol/L (136-145); TOT PROT 7.6 g/dl (6.4-8.2)
[2018-03-06] MEDS ORDERED: SODIUM CHLORIDE 0.9% 500 ML INFUS.BAG IV ONE (15:43)
[2018-03-06] MEDS ORDERED: FAMOTIDINE 20 MG/50 ML IVPB 20 MG/50 ML MG IVPB ONE ×2 (15:43→16:16)
[2018-03-06 17:36] LABS: URINE APPEARANCE CLEAR; URINE BILIRUBIN NEGATIVE (<2.0 mg/dL); URINE COLOR LTYELLOW; URINE GLUCOSE (UA) NEGATIVE (NEGATIVE); URINE KETONE NEGATIVE (NEGATIVE); URINE LEUK ESTERASE NEGATIVE (NEGATIVE); URINE NITRITE NEGATIVE (NEGATIVE); URINE PROTEIN NEGATIVE (NEGATIVE); URINE UROBILINOGEN NEGATIVE mg/dL (0.2-1.0)
[2018-03-06 18:26] VITALS: BP 143/98; PULSE 75; TEMP 98.1
--- NOTE | 2018-03-07 10:00 | EKG ---
Test Reason : Blood Pressure : / mmHG Vent. Rate : 048 BPM Atrial Rate : 051 BPM P-R Int : 000 ms QRS Dur : 092 ms QT Int : 414 ms P-R-T Axes : 000 064 097 degrees QTc Int : 369 ms POOR DATA QUALITY, INTERPRETATION MAY BE ADVERSELY AFFECTED JUNCTIONAL RHYTHM ABNORMAL ECG Confirmed by BABATUNDE REED MD ([id number]) on 03/07/2018 9:59:44 AM Referred By: Confirmed By:BABATUNDE REED MD
== END 2018-03-06 18:35 | disposition home or self-care (01) ==
LOC: JER 11:55
PROC: 3E033GC Introduction of Other Therapeutic Substance into Peripheral Vein, Percutaneous Approach (ICD-10-PCS; principal; 2018-03-06)
PROC: 3E0337Z Introduction of Electrolytic and Water Balance Substance into Peripheral Vein, Percutaneous Approach (ICD-10-PCS; 2018-03-06)
DX: R11.2 Nausea with vomiting, unspecified (principal); G30.9 Alzheimer's disease, unspecified; F02.80 Dementia in other diseases classified elsewhere, unspecified severity, without behavioral disturbance, psychotic disturbance, mood disturbance, and anxiety; F05 Delirium due to known physiological condition; I10 Essential (primary) hypertension; E78.00 Pure hypercholesterolemia, unspecified; E03.9 Hypothyroidism, unspecified
CPT/HCPCS: 36415; 70450-TC; 80053; 81003; 82150; 82550; 83690; 83735; 84484; 85025; 87086; 93005; 93010; 99285-25

== ENCOUNTER 2018-06-02 15:20 | Inpatient (IN) | payer OTHER ==
[2018-06-02] MEDS ORDERED: SODIUM CHLORIDE 0.9% 500 ML INFUS.BAG IV ONE (15:31)
--- NOTE | 2018-06-02 15:33 | PDOC ---
Attending Attestation - Physicial Exam PE: 06/02/18 17:10 agree with resident exam. PAtient is sleeping, but opens eyes when touched. Leaning to the right side. Patient is non verbal and does not follow commands, which is her baseline as per daughter. 06/02/18 17:16 - Medical Decision Making 06/02/18 17:17 PT presents to the ED after brought in by daughter for altered mental status. CT performed to rule out intracranial bleed or mass and is negative. Concern for occult infection, given age and comorbidities. Will check labs, UA and CXR and reassess. <Tiffanie Christianson - Last Filed: 06/02/18 17:16> - Resident Resident Name: Abeba Stuart - ED Attending Attestation I have performed the following: I have examined & evaluated the patient, The case was reviewed & discussed with the resident, I agree w/resident's findings & plan - HPI HPI: 06/02/18 16:07 The patient is a 73 year old female, with a significant past medical history of Parkinsons, Alzheimer's dementia (non-verbal @ baseline), HTN, HLD, hypothyroidism, who presents to the emergency department with, 2 days of right sided deficits and lethargy. As per patients daughter at bedside, yesterday she began to lean to her right side and she was experiencing a right facial droop. Today she notes the patient has become increasingly tired and experienced difficulty swallowing, prompting their visit to the ER. Patients mother is unaware if she had any recent falls. Allergies: [place], tomato. Past surgical history: None reported. Social history: Lives with daughter and has 2 at home aids. - Medical Decision Making 06/02/18 18:[address] Gonsalez's answering service to update on patient and admission , waited on hold for 15minutes without a response. <Falguni Alanis - Last Filed: 06/02/18 18:25> Attestations - Attestations 06/02/18 16:07 Documentation prepared by Falguni Alanis, acting as director biomedical engineering for Tiffanie Christianson MD. <Falguni Alanis - Last Filed: 06/02/18 18:25>
--- NOTE | 2018-06-02 15:55 | PDOC ---
History of Present Illness - General Stated Complaint: WEAKNESS Time Seen by Provider: 06/02/18 15:30 History Source: Family Exam Limitations: Dementia - History of Present Illness Initial Comments: 06/02/18 15:33 78YOF with h/o Parkinson's dementia and UTI who is BIBEMS for one day of altered level of consciousness and leaning persistently over to the left, which is something she does not normally do. The patient herself is nonverbal and does not participate in her interview or exam in any way. The daughter presents with her and provides her relevant history. She explains that the patient became altered yesterday at some point while she was under the supervision of a home health aid. The patient lives at home with her daughter and there are two home health aids who work with her. She is prone to UTI but not PNA. She did not get a PNA or influenza vaccination. Per the daughter, the patient's baseline is eyes open and tracks normally, but does not answer questions, does not walk. Past History - Past Medical History Allergies/Adverse Reactions: Allergies Allergy/AdvReac Type Severity Reaction Status Date / Time strawberry Allergy Mild Hives Verified 06/02/18 15:34 tomato Allergy Mild Hives Verified 06/02/18 15:34 No Known Drug Allergies Allergy Verified 06/02/18 15:34 Home Medications: Ambulatory Orders Aspirin [ASA -] 81 mg PO DAILY 04/17/17 Atorvastatin Ca [Lipitor] 40 mg PO HS 04/17/17 Dextran 70/Hypromellose/Pf [Artificial Tears Drops] 1 each OP BID #30 droperette 04/17/17 Levothyroxine [Synthroid -] 50 mcg PO DAILY 04/17/17 Memantine HCl [Namenda Xr] 28 mg PO DAILY 04/17/17 Polyethylene Glycol 3350 [Miralax 119 gm Btl -] 17 gm PO DAILY 04/17/17 Divalproex Sodium [Depakote] 125 mg PO TID 06/02/18 Lisinopril 20 mg PO DAILY 06/02/18 Quetiapine Fumarate [Seroquel -] 25 mg PO HS 06/02/18 Cardiac Disorders: Yes (bradycardia) COPD: No Dementia: Yes (ALZHEIMERS.) HTN: Yes Hypercholesterolemia: Yes Thyroid Disease: Yes (hypothyroid) - Suicide/Smoking/Psychosocial Hx Smoking History: Never smoked Have you smoked in the past 12 months: No Hx Alcohol Use: No Drug/Substance Use Hx: No Substance Use Type: None Review of Systems - Review of Systems Able to Perform ROS?: No (dementia, altered) *Physical Exam - Physical Exam Comments: 06/02/18 16:10 GENERAL: obtunded, unable to answer questions, decreased response to verbal stimuli, responds fully to pain, leaning over to the right persistently for the duration of the exam, otherwise does not participate in exam HEENT: PERRLA, EOMI, moist mucous membranes NECK/BACK: no hematoma, neck supple CARDIOVASCULAR: regular rate/rhythm, normal S1S2, no MGR, capillary refill <2 seconds, extremities wwp, no edema LUNGS/RESPIRATORY: nononlabored respirations, lungs CTAB GI/ABDOMEN: symmetric [id number], normoactive BS, soft, no midline pulsatile masses, no organomegaly : normal external appearance, no lesions, no swelling, non-malodorous EXTREMITIES: chronic appearing muscle atrophy, no acute deformity, no edema SKIN: warm and dry, no pallor, no jaundice, no rash, no bruising, no skin breakdown, no cuts NEUROLOGICAL: Not alert or oriented, CN II-XII grossly intact, no obvious facial droop, otherwise patient is unable to participate in exam Heart Score/ECG Review #1 Sinus rhythm, rate of 80, normal axis and intervals, no ischemic ST-T changes ED Treatment Course - LABORATORY CBC & Chemistry Diagram: 06/09/18 05:00 06/09/18 05:00 - RADIOLOGY Radiology Studies Ordered: Category Date Time Status HEAD CT WITHOUT CONTRAST [CT] Stat CT Scan 06/02/18 15:31 Ordered CHEST X-RAY PORTABLE* [RAD] Stat Radiology 06/02/18 15:31 Ordered Medical Decision Making - Medical Decision Making Pt p/w fatigue and generalized weakness. Initial Vital Signs Pulse Resp BP Pulse Ox 80 18 152/133 H 98 06/02/18 15:21 06/02/18 15:21 06/02/18 15:21 06/02/18 15:21 Exam: As noted in Physical Exam section. DDX IBNLT: most likely infection (e.g. UTI, PNA, cellulitis), anemia (e.g. from GIB, menorrhagia, other blood loss), CVA/TIA, medications. Less likely endocrine , Parkinsons disease, HIV, cancer (ana TER[employer]AL [employer]PERATOR neoplasm), etc. W/U ordered: Labs as noted below, CXR, EKG, Head CT TX ordered: IVF EKG: Reviewed; results as noted in ECG Review section. CXR: Laboratory Tests 06/02/18 06/02/18 06/02/18 15:30 15:30 15:30 WBC 8.8 RBC 3.81 Hgb 11.0 Hct 35.4 MCV 92.9 MCH 28.9 MCHC 31.1 L RDW 14.9 Plt Count 183 MPV 9.5 Absolute Neuts (auto) 6.9 Neutrophils % 78.4 Lymphocytes % 11.1 D Monocytes % 9.1 D Eosinophils % 0.5 Basophils % 0.9 Nucleated RBC % 0 PT with INR 12.60 INR 1.07 Sodium 146 H Potassium 4.3 Chloride 112 H Carbon Dioxide 26 Anion Gap 8 BUN 19 H Creatinine 0.8 Creat Clearance w eGFR > 60 Random Glucose 91 Calcium 8.8 Phosphorus 3.9 Magnesium 2.1 Total Bilirubin 0.4 AST 32 ALT 18 Alkaline Phosphatase 115 Creatine Kinase 924 H Creatine Kinase Index 0.2 CK-MB (CK-2) 2.1 Troponin I < 0.02 Total Protein 7.3 Albumin 3.0 L Urine Color Urine Appearance Urine pH Ur Specific [place] Urine Protein Urine Glucose (UA) Urine Ketones Urine Blood Urine Nitrite Urine Bilirubin Urine Urobilinogen Ur Leukocyte Esterase Urine WBC (Auto) Urine RBC (Auto) Ur Epithelial Cells Urine Mucus Blood Type Antibody Screen 06/02/18 06/02/18 15:30 17:25 WBC RBC Hgb Hct MCV MCH MCHC RDW Plt Count MPV Absolute Neuts (auto) Neutrophils % Lymphocytes % Monocytes % Eosinophils % Basophils % Nucleated RBC % PT with INR INR Sodium Potassium Chloride Carbon Dioxide Anion Gap BUN Creatinine Creat Clearance w eGFR Random Glucose Calcium Phosphorus Magnesium Total Bilirubin AST ALT Alkaline Phosphatase Creatine Kinase Creatine Kinase Index CK-MB (CK-2) Troponin I Total Protein Albumin Urine Color Yellow Urine Appearance Slcloudy Urine pH 6.0 Ur Specific [place] 1.021 Urine Protein Negative Urine Glucose (UA) Negative Urine Ketones Trace H Urine Blood 1+ H Urine Nitrite Negative Urine Bilirubin Negative Urine Urobilinogen Negative Ur Leukocyte Esterase 2+ H Urine WBC (Auto) 117 Urine RBC (Auto) 7 Ur Epithelial Cells Rare Urine Mucus Rare Blood Type O POSITIVE Antibody Screen Negative Placed orders for ceftriaxone [address]/HEAD CT WITHOUT CONTRAST HISTORY PROVIDED: Altered mental status TECHNIQUE: Sequential axial images were obtained from the base of the skull to the vertex. There is no evidence of acute intracranial hemorrhage, mass lesions or infarctions. There is a moderate degree of diffuse cerebral atrophy with sulcal widening and ventricular dilatation. There are hypodense changes throughout the periventricular white matter consistent with chronic, small vessel ischemia. IMPRESSION: No evidence of acute intracranial pathology. RAD/CHEST X-RAY PORTABLE* HISTORY PROVIDED: Altered mental status. A single frontal portable projection of the chest at 5:52 PM is submitted. The heart size is within normal limits. The lung huerta are free of pulmonary infiltrates or pleural effusions. IMPRESSION: Normal chest. RAD/KNEE 3 POS-LEFT HISTORY PROVIDED: Swelling AP, sunrise and lateral projections of the left knee reveals no evidence of fracture, dislocation or acute bone or joint abnormalities. Mild degenerative changes are present. IMPRESSION: Mild degenerative arthritis with no fracture or acute bone or joint abnormalities. ADMIT The Pt is unsafe for discharge at this time. They require further hospital observation, workup, and treatment. Spoke with admitting team event representative, in agreement Pt to be admitted. Decision to Admit order is placed. *DC/Admit/Observation/Transfer Diagnosis at time of Disposition: UTI (urinary tract infection) Qualifiers: Urinary tract infection type: acute cystitis Hematuria presence: without hematuria Qualified Code(s): N30.00 - Acute cystitis without hematuria Altered mental status Qualifiers: Altered mental status type: somnolence Qualified Code(s): R40.0 - Somnolence - Discharge Dispostion Condition at time of disposition: Guarded Decision to Admit order: Yes - Referrals - Patient Instructions - Post Discharge Activity NIH Stroke Scale - Last Known Well Date/Time & Onset Date Last Known Well: 06/01/18 Time Last Known Well: 20:00 - Initial Evaluation Level of consciousness: Not alert, requires repeat stimulation to attend Ask patient the month and their age: Both incorrect Ask patient to open & close eyes; make fist and let go: Both incorrect Best gaze (horizontal eye movement): Normal Visual field testing: No visual field loss Facial paresis (Show teeth/raise eyebrows/close eyes tight): Normal symmetrical movement Motor Function: Left Arm: Normal Motor Function: Right Arm: Normal (extends arm 90 (or 45) degrees for 10 seconds without drift Motor Function: Left Leg: Normal (extends leg 30 degrees for 5 seconds without drift) Motor Function: Right Leg: Normal (extends leg 30 degrees for 5 seconds without drift) Limb Ataxia: No ataxia Sensory(Use pinprick test arms,legs,trunk,face/side to side): Normal Best language (Describe picture, name items, read sentences): No Aphasia Dysarthria (read several words): Normal articulation Extinction and Inattention: No abnormality - Total Score NIH Stroke Scale Score: 6 tPA Exclusion checklist 3-4.5h - Time Elapsed Date last known well: 06/01/18 Time last known well: 20:00 Elaspsed time: 11 Day(s) and 22 Hour(s) and 25 Minutes - Thrombolytic Therapy Candidate Is patient eligible for thrombolytic therapy: No - Exclusion Criteria 3-4.5 hr SBP greater than 185 or DBP greater than 110mmHg despite tx: Yes Recent IC/spinal surgery,head trauma or stroke<3mos.: No Hx IC hemorrhage, IC neoplasm, AV malformation or aneurysm: No Active internal bleeding: No Blding diathesis(low plt ct, inc PTT,INR>1.7 or use of NOAC): No Symptoms suggest subarachnoid hemorrhage: No CT demonstrates multilobar infarct(>1/3 cerebral hemiphere): No Arterial puncture at noncompressible site in previous 7 days: No Blood glucose concentration less than 50mg/dL (2.7mmol/L): No - Relative Exclusion Criteria 3-4.5 hr Life expectancy <1 yr or severe co-morbid illness: Yes : No Patient/family refused: No Rapid improvement: No Stroke severity too mild: No Recent acute CA (w/in previous 3 months): No Seizure at onset with postictal residual neuro impairments: No Major surgery or serious trauma w/in previous 14 days: No Recent GI or hemorrhage (w/in previous 21 days): No - Add'l Relative Exclusion 3-4.5 hr Age > 80: No Hx of both diabetes AND prior ischemic stroke: No Taking an oral anticoagulant regardless of INR: No NIHSS >25: No - Ineligibility reason(s) Reasons No tPA given: Outside of window - delayed arrival
[2018-06-02 16:08] LABS: BASO % 0.9 % (0-2.0); EOS % 0.5 % (0-4.5); HEMATOCRIT 35.4 % (32.4-45.2); LYMPH % 11.1 % (8-40); MCH 28.9 pg (25.7-33.7); MCHC 31.1 g/dl (32.0-36.0); MEAN CELL VOLUME 92.9 fl (80-96); MEAN PLT VOLUME 9.5 fl (7.5-11.1); MONO % 9.1 % (3.8-10.2); NEUT % 78.4 % (42.8-82.8); PLATELET COUNT 183 K/MM3 (134-434); RBC 3.81 M/mm3 (3.60-5.2); RDW 14.9 % (11.6-15.6); WHITE BLOOD COUNT 8.8 K/mm3 (4.0-10.0)
[2018-06-02 16:43] LABS: ALK PHOS 115 U/L (45-117); ANION GAP 8 MMOL/L (8-16); BILIRUBIN,TOTAL 0.4 mg/dL (0.2-1); BLOOD UREA NITROGEN 19 mg/dL (7-18); CALCIUM 8.8 mg/dL (8.5-10.1); CHLORIDE 112 mmol/L (98-107); CO2 26 mmol/L (21-32); CREATININE 0.8 mg/dL (0.55-1.3); GLUCOSE,RANDOM 91 mg/dL (74-106); MAGNESIUM 2.1 mg/dL (1.8-2.4); PHOSPHOROUS 3.9 mg/dL (2.5-4.9); POTASSIUM 4.3 mmol/L (3.5-5.1); SGOT/AST 32 U/L (15-37); SGPT/ALT 18 U/L (13-61); SODIUM 146 mmol/L (136-145); TOT PROT 7.3 g/dl (6.4-8.2)
[2018-06-02] MEDS ORDERED: METOPROLOL TARTRATE 5 MG/5 ML VIAL IVPUSH ONE (17:12)
[2018-06-02 17:23] LABS: INR 1.07 (0.83-1.09); PROTHROMBIN TIME (PATIENT) 12.6 SEC (9.7-13.0)
[2018-06-02 17:42] LABS: URINE APPEARANCE SLCLOUDY; URINE BILIRUBIN NEGATIVE (<2.0 mg/dL); URINE COLOR YELLOW; URINE GLUCOSE (UA) NEGATIVE (NEGATIVE); URINE KETONE TRACE (NEGATIVE); URINE LEUK ESTERASE 2+ (NEGATIVE); URINE NITRITE NEGATIVE (NEGATIVE); URINE PROTEIN NEGATIVE (NEGATIVE); URINE UROBILINOGEN NEGATIVE mg/dL (0.2-1.0)
[2018-06-02 18:08] LABS: EPI CELLS RARE /HPF (FEW); URINE MUCUS RARE
[2018-06-02] MEDS ORDERED: CEFTRIAXONE 1,000 MG in DEXTROSE 5%-WATER - 50 ML IVPB ONE (18:13)
[2018-06-02] MEDS ORDERED: CEFTRIAXONE 1 GM/50 ML BAG ONE (19:00)
--- NOTE | 2018-06-02 19:28 | HP ---
CHIEF COMPLAINT: AMS x2 days PCP: HISTORY OF PRESENT ILLNESS: Pt is a 78 yo F with PMHx Alzheimer's Dementia, Parkinson's, bradycardia, HLD, HTN, previous UTI, currently wheelchair bound, brought in by daughter from home for altered mental status since yesterday am. Pt's daughter noticed her more withdrawn yesterday, with difficulty feeding "daughter thought the food was spilling out of her mouth after being fed", the daughter also thought the Pt was more "tilted to the left" in the wheel chair. At baseline, pt is unable to communicate pain or needs verbally and was able to walk with assistance until 3 weeks ago when she became wheelchair bound presumably from the worsening Parkinsons/Alzheimes. No previous fevers, nasal congestion or cough, no syncope noted prior, no falls. No hematuria or loose stools. This morning, the Pt was completely unable to feed, so was brought in. While in the ED however Pt was able to take soup and thin liquids with no problems. Pt only took the am dose of depakote today In the ED, Pt's daughter noticed L knee swelling. ER course was notable for: (1) CT- head- no acute pathology, CXR- no acute pathology (2) CK- 924, UA- Trace ketones, 1+blood, 2+LEs, WBCs-117, rare epith cells (3) 1g ceftriaxone, 1L NS Recent Travel: PAST MEDICAL HISTORY: Alzheimer's Dementia, Parkinson's, bradycardia, HLD, HTN, previous UTI PAST SURGICAL HISTORY: Social History: Smoking: Alcohol: Drugs: Family History: Allergies strawberry Allergy (Mild, Verified 06/02/18 15:34) Hives tomato Allergy (Mild, Verified 06/02/18 15:34) Hives No Known Drug Allergies Allergy (Verified 06/02/18 15:34) HOME MEDICATIONS: Home Medications Medication Instructions Recorded Aspirin [ASA -] 81 mg PO DAILY 04/17/17 Atorvastatin Ca [Lipitor] 40 mg PO HS 04/17/17 Dextran 70/Hypromellose/Pf 1 each OP BID #30 droperette 04/17/17 [Artificial Tears Drops] Levothyroxine [Synthroid -] 50 mcg PO DAILY 04/17/17 Lisinopril/Hydrochlorothiazide 1 each PO DAILY 04/17/17 [Lisinopril-Hctz 20-12.5 mg Tab] Memantine HCl [Namenda Xr] 28 mg PO DAILY 04/17/17 Polyethylene Glycol 3350 [Miralax 17 gm PO DAILY 04/17/17 (For Daily Use) -] Sennosides [Senna Concentrate] 8.6 mg PO HS 04/17/17 REVIEW OF SYSTEMS As above per daughter PHYSICAL EXAMINATION Vital Signs - 24 hr 06/02/18 06/02/18 06/02/18 15:21 15:54 17:49 Temperature 99.7 F H Pulse Rate 80 Pulse Rate [ 78 Apical] Respiratory 18 20 Rate Blood Pressure 152/133 H Blood Pressure 176/92 H [Right Arm] O2 Sat by Pulse 98 98 Oximetry (%) GENERAL: AAOx0, not in any obvious resp distress. HEAD: Normal with no signs of trauma. EYES: Pupils equal, round and reactive to light, EARS, NOSE, THROAT: oropharynx clear without exudates. Dry mucous membranes. NECK: supple , no JVD LUNGS: Breath sounds equal, clear to auscultation bilaterally. No wheezes, and no crackles. HEART: Regular rate and rhythm, normal S1 and S2 ABDOMEN: Soft, not distended, normoactive bowel sounds, MUSCULOSKELETAL:Swollen L knee, no effusion, redness or warmth LOWER EXTREMITIES: 2+ pulses, warm, well-perfused. No calf tenderness. No peripheral edema. Slight hyperemia over L dorsum of foot NEUROLOGICAL: No facial or tongue asymmetry, downward babinski, slightly exaggerated reflexes NIHSS- 0, had to assess, pt is altered Would be over 48hrs based on last known well CBC, BMP 06/02/18 15:30 06/02/18 15:30 Laboratory Results - last 24 hr 06/02/18 06/02/18 06/02/18 15:30 15:30 15:30 WBC 8.8 RBC 3.81 Hgb 11.0 Hct 35.4 MCV 92.9 MCH 28.9 MCHC 31.1 L RDW 14.9 Plt Count 183 MPV 9.5 Absolute Neuts (auto) 6.9 Neutrophils % 78.4 Lymphocytes % 11.1 D Monocytes % 9.1 D Eosinophils % 0.5 Basophils % 0.9 Nucleated RBC % 0 PT with INR 12.60 INR 1.07 Sodium 146 H Potassium 4.3 Chloride 112 H Carbon Dioxide 26 Anion Gap 8 BUN 19 H Creatinine 0.8 Creat Clearance w eGFR > 60 Random Glucose 91 Calcium 8.8 Phosphorus 3.9 Magnesium 2.1 Total Bilirubin 0.4 AST 32 ALT 18 Alkaline Phosphatase 115 Creatine Kinase 924 H Creatine Kinase Index 0.2 CK-MB (CK-2) 2.1 Troponin I < 0.02 Total Protein 7.3 Albumin 3.0 L Urine Color Urine Appearance Urine pH Ur Specific Industry Urine Protein Urine Glucose (UA) Urine Ketones Urine Blood Urine Nitrite Urine Bilirubin Urine Urobilinogen Ur Leukocyte Esterase Urine WBC (Auto) Urine RBC (Auto) Ur Epithelial Cells Urine Mucus Blood Type Antibody Screen 06/02/18 06/02/18 15:30 17:25 WBC RBC Hgb Hct MCV MCH MCHC RDW Plt Count MPV Absolute Neuts (auto) Neutrophils % Lymphocytes % Monocytes % Eosinophils % Basophils % Nucleated RBC % PT with INR INR Sodium Potassium Chloride Carbon Dioxide Anion Gap BUN Creatinine Creat Clearance w eGFR Random Glucose Calcium Phosphorus Magnesium Total Bilirubin AST ALT Alkaline Phosphatase Creatine Kinase Creatine Kinase Index CK-MB (CK-2) Troponin I Total Protein Albumin Urine Color Yellow Urine Appearance Slcloudy Urine pH 6.0 Ur Specific Industry 1.021 Urine Protein Negative Urine Glucose (UA) Negative Urine Ketones Trace H Urine Blood 1+ H Urine Nitrite Negative Urine Bilirubin Negative Urine Urobilinogen Negative Ur Leukocyte Esterase 2+ H Urine WBC (Auto) 117 Urine RBC (Auto) 7 Ur Epithelial Cells Rare Urine Mucus Rare Blood Type O POSITIVE Antibody Screen Negative ASSESSMENT/PLAN: Pt is a 78 yo F with PMHx Alzheimer's Dementia, Parkinson's, bradycardia, HLD, HTN, previous UTI, currently wheelchair bound, brought in by daughter from home for altered mental status since yesterday am. AMS likely secondary to acute metabolic encephalopathy Pt is UA positive Ucx pending Cont 1/2 NS (hyperchloremic) @75 Cont ceftriaxone 1g daily Fall precautions Neurochecks Elevated HOB Speech and swallow eval-for diet modifications if needed D/W Dr Keene- Confirmed dosages of neuro drugs, agrees likely metabolic R/o CVA Less likely CVA, more likely UTI with AMS CT head -ve No lateralizing signs at this time, NIHSS -0 (hard to assess based on baseline mental status) Neurochecks Elevated HOB Speech and swallow eval D/W Dr Keene- Confirmed dosages of neuro drugs, agrees likely metabolic UTI Complicated UTI with AMS Ceftriaxone (no previous positive cx) Fluids Ucx pending High BP Continue Lisinopril 20 Monitor L Knee swelling Not red, warm or with obvious effusions, likely not inflammatory Xray stat Elevated CK Maybe from reduced mobilization Denies Fall hx Trend Fluid 1/2 NS Hyperchloremia 1/2 NS Alzheimer's Dementia/Parkinson's Hx bradycardia, Not bradycardic today (EKG-80bpm, SRwith few PVCs, likely LVHTWI V3-V6 (age undetermined) QTC-410), nl axis (my read) Monitor HLD Lipitor 40 PPx Heparin sq 30mg FEN 1/2 NS Monitor lytes and CK (trend) Sodium controlled Diet- Pt tolerated per daughter in the ED Code status Full code Visit type - Emergency Visit Emergency Visit: Yes ED Registration Date: 06/02/18 Care time: The patient presented to the Emergency Department on the above date and was hospitalized for further evaluation of their emergent condition. - New Patient This patient is new to me today: Yes Date on this admission: 06/02/18 - Critical Care Critical Care patient: No
[2018-06-02] MEDS ORDERED: PATIENT'S OWN MEDICATION (NON-FORMULARY) (Lisinopril/Hydrochlorothiazide [Lisinopril-Hctz PO SCH (19:45)
--- NOTE | 2018-06-02 19:57 | PN ---
Teaching Attending Note Name of Resident: Maricruz Romano ATTENDING PHYSICIAN STATEMENT I saw and evaluated the patient. I reviewed the resident's note and discussed the case with the resident. I agree with the resident's findings and plan as documented. SUBJECTIVE: Seen and examined; please refer to resident note for additional documentation. In summation, this is a 78 y/o female with a history of Parkinsons Disease/ Dementia (follows with Dr. Keene), HTN, HLD, Prior UTIs (but no positive microbiology data), prior bradycardia, who presents to the ER with a CC of AMS with her daughter; presenting from home. She unfortunately cannot provide a history due to her underlying clinical condition. For the past several weeks she was walking less and less (estimated to be three) and she was known to become increasingly withdrawn as per her daughter. There was some concern of a CVA as she was said to slump to the left and have some food falling out of her mouth; per ther resident there is no aparent facial droop or limb weakness or lack of sensation; when I saw her she did have a L-facial droop. Given that the symptoms have been present for days, if this represented an acute event she would have been well-outside the window for tPA. She was given ceftriaxone in the ER and was hydrated with a L of saline. She will be brought to the floor. No access to recent outpatient neuroimaging/studies. Will alert Dr. Keene his patient is here. Admit to med surg. 10 sys ROS done and negative aside from HPI PMH and PSH reviewed and discussed above FH asked and noncontriutory Impaired with ADLs at baseline, no tobacco/EtOH abuse Medication list reviewed; I have asked the resident to obtain the full list and we will continue all appropriate medications OBJECTIVE: VS, labs, imaging reviewed NAD, AAO, Demented but not agitated, unable to preform history from patinet due to underlying neuro issues. NC AT EOMI PERRLA RRR s1/2 no mgr Moving all 4 extremities, sensation intact all 4 extremities, tracking but difficult to have carry out complex commands. L-nasolabial flattening, cranial nerves intact. Documented as being nonverbal at baseline. Cannot fully assess psych NT ND +BS CBC without white count or left shift, BMP with slightly elevated Na 1446 BUN 19 and Cl at 112; LFTs wnl. CK elevated. Troponin and CkMB negative. CK is 924. Albumin 3.0. UA with 1+ blood and 2+ LE No prior positive cultures EKG reviewed; no worrisome ST-T changes CXR reviewed CT head reviewed; no acute disease seen 2016 Echo reviewed; LVEF wnl with no filling defects ASSESSMENT AND PLAN: Mrs. Ng presents with altered mental status found to have possible UTI; there was some concern for stroke on presentation but no identifiable neuro defects at this point. Monitoring on the floor with neuro checks, seizure precautions. Due to AMS in a patient with underlying severe neuro condition will consult her neurologist. 1) AMS -Given the possible UTI and slight hypernatremia I will attribute this to likely toxic metabolic encephalopathy, especially given the time frame of onset. Less likely CVA. Her underlying dementia increases her risk of UTI causing such a presentation. -Neuro checks and seizure precautions; treat underlying issues -Team discussed case with Dr. Keene 2) Acute Cystitis with Hematuria -IV ceftriaxone, followup cultures. Monitor for improvement with #1. 3) Weakness/Initial question of CVA -No facial droop, no limb weakness, gait issue is [address] negative. She would have been well outside the window if there even was a CVA and the negative imaging days later. Facial findings noted. Monitor neuro checks. Further imaging per neurology-I have asked the resident of record to phone their service. 4) Hx Parkinsons -Continue home meds 5) Dementia -Fall and aspiration precautions 6) Hx HTN -Elevated BP in the ER but didn't take home medication prior to presentation; giving her home BP combo med and repeat. Asx. 7) Hx HLD -Reconcile and continue home meds 8) Hx Hypothyroid -Check TSH 9) Elevated CK -Trend with hydration; no h/o falls or being on ground prolonged period. 10) Low Albumin -Check prealbumin; consider nutritional supplementation 11) Very Mild Hypernatremia/Hyperchloremia -Given #12 likely dehydration -Recheck after hydration 12) Elevated BUN -Per above FENA -1/2NS @75cc/hr -PRN replete -Continue home diet -As tolerated; fall precautions Dispo: Continue to treat inpatient; may be <72 hours if quickly returns to baseline. Will discuss potential need for placement with case management. Full Code
[2018-06-02] MEDS ORDERED: QUEtiapine FUMARATE 25 MG TABLET (FP) PO SCH (22:00)
[2018-06-02] MEDS ORDERED: LEVOTHYROXINE NA 25 MCG TABLET (FP) ONE (22:21)
[2018-06-02] MEDS ORDERED: ASPIRIN 81 MG CHEWABLE TABLETS ONE (22:21)
[2018-06-02] MEDS ORDERED: LISINOPRIL 20 MG TABLET (FP) ONE (22:29)
[2018-06-02] MEDS ORDERED: QUEtiapine FUMARATE 25 MG TABLET (FP) ONE (22:29)
[2018-06-02] MEDS ORDERED: ATORVASTATIN CA 40 MG TABLET (FP) ONE (22:29)
[2018-06-02] MEDS ORDERED: DIVALPROEX SODIUM 125 MG TABLET E.C. ONE (22:30)
[2018-06-02] MEDS ORDERED: ENOXAPARIN NA (PORCINE) 30 MG/0.3 ML DISP.SYRIN SQ ONE (22:30)
[2018-06-02] MEDS: LISINOPRIL 20 MG TABLET (FP) PO SCH (22:40)
[2018-06-02] MEDS: ASPIRIN 81 MG CHEWABLE TABLETS PO SCH (22:40)
[2018-06-02] MEDS: DIVALPROEX SODIUM 125 MG TABLET E.C. PO SCH (22:40)
[2018-06-02] MEDS: QUEtiapine FUMARATE 25 MG TABLET (FP) PO SCH (22:40)
[2018-06-02] MEDS: ENOXAPARIN NA (PORCINE) 30 MG/0.3 ML DISP.SYRIN SQ SCH (22:40)
[2018-06-02] MEDS: POLYETHYLENE GLYCOL 3350 119 GM BTL PO SCH (22:45)
[2018-06-02] MEDS: LEVOTHYROXINE NA 50 MCG TABLET (FP) PO SCH (22:46)
[2018-06-02] MEDS: ATORVASTATIN CA 40 MG TABLET (FP) PO SCH (22:47)
[2018-06-02] MEDS: SODIUM CHLORIDE 0.45% 1,000 ML IV SCH (23:30)
[2018-06-02] MEDS: ARTIFICIAL TEARS (POLYVINYL ALCOHOL) OPTH DROPS OU SCH (23:38)
[2018-06-03] MEDS ORDERED: LEVOTHYROXINE NA 25 MCG TABLET (FP) ONE (05:31)
[2018-06-03] MEDS ORDERED: DIVALPROEX SODIUM 125 MG TABLET E.C. ONE (05:31)
[2018-06-03 07:00] LABS: BASO % 0.9 % (0-2.0); EOS % 1.5 % (0-4.5); HEMATOCRIT 29.9 % (32.4-45.2); HEMOGLOBIN 9.5 GM/dL (10.7-15.3); LYMPH % 18.9 % (8-40); MCH 29.1 pg (25.7-33.7); MCHC 31.7 g/dl (32.0-36.0); MEAN CELL VOLUME 91.9 fl (80-96); MONO % 10.4 % (3.8-10.2); NEUT % 68.3 % (42.8-82.8); PLATELET COUNT 155 K/MM3 (134-434); RBC 3.25 M/mm3 (3.60-5.2); RDW 14.8 % (11.6-15.6); WHITE BLOOD COUNT 5.9 K/mm3 (4.0-10.0)
[2018-06-03] MEDS: DIVALPROEX SODIUM 125 MG TABLET E.C. PO SCH ×3 (07:18→22:59)
[2018-06-03] MEDS: LEVOTHYROXINE NA 50 MCG TABLET (FP) PO SCH ×2 (07:18→12:43)
[2018-06-03 07:21] LABS: ALBUMIN 2.4 g/dl (3.4-5.0); ALK PHOS 90 U/L (45-117); ANION GAP 8 MMOL/L (8-16); BILIRUBIN,TOTAL 0.7 mg/dL (0.2-1); BLOOD UREA NITROGEN 19 mg/dL (7-18); CALCIUM 8.2 mg/dL (8.5-10.1); CHLORIDE 113 mmol/L (98-107); CO2 25 mmol/L (21-32); CREATININE 0.7 mg/dL (0.55-1.3); GLUCOSE,RANDOM 86 mg/dL (74-106); INR 1.13 (0.83-1.09); MAGNESIUM 1.8 mg/dL (1.8-2.4); PHOSPHOROUS 3.5 mg/dL (2.5-4.9); POTASSIUM 3.9 mmol/L (3.5-5.1); PROTHROMBIN TIME (PATIENT) 13.4 SEC (9.7-13.0); SGOT/AST 24 U/L (15-37); SGPT/ALT 15 U/L (13-61); SODIUM 146 mmol/L (136-145)
[2018-06-03 07:23] LABS: ACTIVATED PTT 30.9 SECONDS (25.2-36.5)
--- NOTE | 2018-06-03 10:03 | EKG ---
Test Reason : Blood Pressure : / mmHG Vent. Rate : 080 BPM Atrial Rate : 080 BPM P-R Int : 116 ms QRS Dur : 074 ms QT Int : 356 ms P-R-T Axes : 062 072 015 degrees QTc Int : 410 ms POOR DATA QUALITY, INTERPRETATION MAY BE ADVERSELY AFFECTED SINUS RHYTHM WITH OCCASIONAL PREMATURE VENTRICULAR COMPLEXES MINIMAL VOLTAGE CRITERIA FOR LVH, MAY BE NORMAL VARIANT POSSIBLE LATERAL INFARCT (CITED ON OR BEFORE 02-JUN-2018) ABNORMAL ECG Confirmed by Booker Tobar MD ([id number]) on 06/03/2018 10:03:06 AM Referred By: Confirmed By:Booker Tobar MD
[2018-06-03] MEDS: ARTIFICIAL TEARS (POLYVINYL ALCOHOL) OPTH DROPS OU SCH ×3 (11:41→23:07)
[2018-06-03] MEDS: ASPIRIN 81 MG CHEWABLE TABLETS PO SCH ×2 (11:42→12:44)
[2018-06-03] MEDS: HYDROCHLOROTHIAZIDE 12.5 MG CAPSULE (FP) PO SCH ×2 (11:43→12:46)
[2018-06-03] MEDS: ENOXAPARIN NA (PORCINE) 30 MG/0.3 ML DISP.SYRIN SQ SCH ×2 (11:44→12:45)
[2018-06-03] MEDS: POLYETHYLENE GLYCOL 3350 119 GM BTL PO SCH (11:44)
[2018-06-03] MEDS: CEFTRIAXONE 1 GM in DEXTROSE 5%-WATER - 50 ML IVPB SCH ×2 (11:45→12:44)
[2018-06-03] MEDS: LISINOPRIL 20 MG TABLET (FP) PO SCH ×2 (11:45→12:45)
[2018-06-03] MEDS ORDERED: CEFTRIAXONE 1 GM/50 ML BAG ONE (11:48)
--- NOTE | 2018-06-03 16:22 | PN ---
Teaching Attending Note Name of Resident: Reggie Najera ATTENDING PHYSICIAN STATEMENT I saw and evaluated the patient. I reviewed the resident's note and discussed the case with the resident. I agree with the resident's findings and plan as documented. SUBJECTIVE: Patient appears comfortable. She will open eyes to painful stimuli and sometimes in response to her name being called. OBJECTIVE: Vital Signs Period Temp Pulse Resp BP Sys/Torres Pulse Ox Last 24 Hr 98.7 F-98.8 F 78-95 17-20 140-176/77-92 98 HEART: S1S2, RRR LUNGS: Clear ABDOMEN: Soft, non-distended, ? LLQ tenderness, normal BS EXTREMITIES: No edema Laboratory Results - last 24 hr 06/02/18 06/02/18 06/02/18 15:30 15:30 15:30 WBC 8.8 RBC 3.81 Hgb 11.0 Hct 35.4 MCV 92.9 MCH 28.9 MCHC 31.1 L RDW 14.9 Plt Count 183 MPV 9.5 Absolute Neuts (auto) 6.9 Neutrophils % 78.4 Lymphocytes % 11.1 D Monocytes % 9.1 D Eosinophils % 0.5 Basophils % 0.9 Nucleated RBC % 0 PT with INR 12.60 INR 1.07 PTT (Actin FS) Sodium 146 H Potassium 4.3 Chloride 112 H Carbon Dioxide 26 Anion Gap 8 BUN 19 H Creatinine 0.8 Creat Clearance w eGFR > 60 Random Glucose 91 Calcium 8.8 Phosphorus 3.9 Magnesium 2.1 Total Bilirubin 0.4 AST 32 ALT 18 Alkaline Phosphatase 115 Creatine Kinase 924 H Creatine Kinase Index 0.2 CK-MB (CK-2) 2.1 Troponin I < 0.02 Total Protein 7.3 Albumin 3.0 L Urine Color Urine Appearance Urine pH Ur Specific [place] Urine Protein Urine Glucose (UA) Urine Ketones Urine Blood Urine Nitrite Urine Bilirubin Urine Urobilinogen Ur Leukocyte Esterase Urine WBC (Auto) Urine RBC (Auto) Ur Epithelial Cells Urine Mucus Blood Type Antibody Screen 06/02/18 06/02/18 06/03/18 15:30 17:25 05:30 WBC 5.9 RBC 3.25 L Hgb 9.5 L Hct 29.9 L D MCV 91.9 MCH 29.1 MCHC 31.7 L RDW 14.8 Plt Count 155 MPV 10.0 Absolute Neuts (auto) 4.1 Neutrophils % 68.3 Lymphocytes % 18.9 D Monocytes % 10.4 H Eosinophils % 1.5 D Basophils % 0.9 Nucleated RBC % 0 PT with INR INR PTT (Actin FS) Sodium Potassium Chloride Carbon Dioxide Anion Gap BUN Creatinine Creat Clearance w eGFR Random Glucose Calcium Phosphorus Magnesium Total Bilirubin AST ALT Alkaline Phosphatase Creatine Kinase Creatine Kinase Index CK-MB (CK-2) Troponin I Total Protein Albumin Urine Color Yellow Urine Appearance Slcloudy Urine pH 6.0 Ur Specific [place] 1.021 Urine Protein Negative Urine Glucose (UA) Negative Urine Ketones Trace H Urine Blood 1+ H Urine Nitrite Negative Urine Bilirubin Negative Urine Urobilinogen Negative Ur Leukocyte Esterase 2+ H Urine WBC (Auto) 117 Urine RBC (Auto) 7 Ur Epithelial Cells Rare Urine Mucus Rare Blood Type O POSITIVE Antibody Screen Negative 06/03/18 06/03/18 05:30 05:30 WBC RBC Hgb Hct MCV MCH MCHC RDW Plt Count MPV Absolute Neuts (auto) Neutrophils % Lymphocytes % Monocytes % Eosinophils % Basophils % Nucleated RBC % PT with INR 13.40 H INR 1.13 H PTT (Actin FS) 30.9 Sodium 146 H Potassium 3.9 Chloride 113 H Carbon Dioxide 25 Anion Gap 8 BUN 19 H Creatinine 0.7 Creat Clearance w eGFR > 60 Random Glucose 86 Calcium 8.2 L Phosphorus 3.5 Magnesium 1.8 Total Bilirubin 0.7 AST 24 ALT 15 Alkaline Phosphatase 90 Creatine Kinase 650 H Creatine Kinase Index 0.1 CK-MB (CK-2) 1.2 Troponin I Total Protein 6.0 L Albumin 2.4 L Urine Color Urine Appearance Urine pH Ur Specific [place] Urine Protein Urine Glucose (UA) Urine Ketones Urine Blood Urine Nitrite Urine Bilirubin Urine Urobilinogen Ur Leukocyte Esterase Urine WBC (Auto) Urine RBC (Auto) Ur Epithelial Cells Urine Mucus Blood Type Antibody Screen Current Medications Generic Name Dose Route Start Last Admin Trade Name Freq PRN Reason Stop Dose Admin Artificial Tears 1 drop 06/02/18 22:00 06/03/18 12:42 Artificial Tears OU 1 drop BID NABIL Administration Aspirin 81 mg 06/02/18 19:45 06/03/18 12:44 Asa - PO 81 mg DAILY NABIL Administration Atorvastatin Calcium 40 mg 06/02/18 22:00 06/02/18 22:47 Lipitor - PO Not Given [facility] Divalproex Sodium 125 mg 06/02/18 22:00 06/03/18 13:05 Depakote - PO 125 mg TID NABIL Administration Enoxaparin Sodium 30 mg 06/02/18 21:45 06/03/18 12:45 Lovenox - SQ 30 mg DAILY NABIL Administration Hydrochlorothiazide 12.5 mg 06/03/18 10:00 06/03/18 12:46 Hctz - PO 12.5 mg DAILY NABIL Administration Sodium Chloride 1,000 mls @ 75 mls/hr 06/02/18 20:00 06/02/18 23:30 1/2 Normal Saline IV 75 mls/hr ASDIR NABIL Administration Ceftriaxone Sodium 1 gm/ 50 mls @ 100 mls/hr 06/03/18 10:00 06/03/18 12:44 Dextrose IVPB 100 mls/hr DAILY NABIL Administration Protocol Levothyroxine Sodium 50 mcg 06/02/18 19:45 06/03/18 12:43 Synthroid - PO 50 mcg DAILY@0700 NABIL Administration Lisinopril 20 mg 06/02/18 20:00 06/03/18 12:45 Prinivil PO 20 mg DAILY NABIL Administration Non-Formulary Medication 28 mg 06/03/18 10:00 Memantine Hcl [Namenda Xr] PO DAILY NABIL Polyethylene Glycol 17 gm 06/02/18 19:45 06/03/18 11:44 Miralax (For Daily Use) - PO Not Given DAILY NABIL Quetiapine Fumarate 12.5 mg 06/02/18 22:00 06/02/18 22:40 Seroquel - PO 12.5 mg HS NABIL Administration ASSESSMENT AND PLAN: This is a 78 year old woman with a history of Parkinson disease, dementia, HTN, hyperlipidemia, UTIs, bradycardia who presented to the ED with altered mental status. 1. Acute metabolic encephalopathy secondary to UTI - Appears to be improving - Continue ceftriaxone - Follow up urine and blood cultures 2. Weakness, generalized 3. Parkinson disease 4. Dementia - Continue Namenda, Seroquel, Depakote 5. HTN - Continue lisinopil, HCTZ 6. Hyperlipidemia - Continue Lipitor 7. Hypothyroidism - Continue Synthroid 8. Elevated CK - Cause not clear - possibly secondary to statin use but is improving with IV fluid 9. Hypernatremia, mild - Likely secondary to dehydration - Continue IV fluid and monitor electrolytes
--- NOTE | 2018-06-03 17:05 | PN ---
Physical Exam: SUBJECTIVE: Patient seen and examined this AM. She is minimally responsive and nonverbal. Discussed with daughter upon return. She brought her mother in because she was not herself, was leaning more to the right, and was not tolerating food, which she attributes to being sick and not to new neurological deficit. OBJECTIVE: Vital Signs Period Temp Pulse Resp BP Sys/Torres Pulse Ox Last 24 Hr 98.7 F-98.8 F 78-95 17-20 140-176/77-92 98-98 GENERAL: Initially difficult to arouse, much more alert on return though nonverbal, no acute distress HEAD: Normocephalic, atraumatic. EYES: PERRL, no scleral icterus EARS, NOSE, THROAT: Dry mucus membranes NECK: supple without lymphadenopathy LUNGS: CTA b/l, no crackles or wheezes HEART: Regular rate and rhythm, normal S1 and S2 without murmur ABDOMEN: Soft, nontender to palpation, normoactive bowel sounds MUSCULOSKELETAL: some tenderness on knee palpation, ROM in tact EXTREMITIES: 2+ pulses, warm, well-perfused. No peripheral edema. minimal erythema on anterior portion of ankle NEUROLOGICAL: Cranial nerves difficult to assess but grossly in tact. Nonverbal SKIN: Warm, dry, no rashes or lesions noted Laboratory Results - last 24 hr 06/02/18 06/02/18 06/02/18 15:30 15:30 15:30 WBC RBC Hgb Hct MCV MCH MCHC RDW Plt Count MPV Absolute Neuts (auto) Neutrophils % Lymphocytes % Monocytes % Eosinophils % Basophils % Nucleated RBC % PT with INR 12.60 INR 1.07 PTT (Actin FS) Sodium 146 H Potassium 4.3 Chloride 112 H Carbon Dioxide 26 Anion Gap 8 BUN 19 H Creatinine 0.8 Creat Clearance w eGFR > 60 Random Glucose 91 Calcium 8.8 Phosphorus 3.9 Magnesium 2.1 Total Bilirubin 0.4 AST 32 ALT 18 Alkaline Phosphatase 115 Creatine Kinase 924 H Creatine Kinase Index 0.2 CK-MB (CK-2) 2.1 Troponin I < 0.02 Total Protein 7.3 Albumin 3.0 L Urine Color Urine Appearance Urine pH Ur Specific [place] Urine Protein Urine Glucose (UA) Urine Ketones Urine Blood Urine Nitrite Urine Bilirubin Urine Urobilinogen Ur Leukocyte Esterase Urine WBC (Auto) Urine RBC (Auto) Ur Epithelial Cells Urine Mucus Blood Type O POSITIVE Antibody Screen Negative 06/02/18 06/03/18 06/03/18 17:25 05:30 05:30 WBC 5.9 RBC 3.25 L Hgb 9.5 L Hct 29.9 L D MCV 91.9 MCH 29.1 MCHC 31.7 L RDW 14.8 Plt Count 155 MPV 10.0 Absolute Neuts (auto) 4.1 Neutrophils % 68.3 Lymphocytes % 18.9 D Monocytes % 10.4 H Eosinophils % 1.5 D Basophils % 0.9 Nucleated RBC % 0 PT with INR 13.40 H INR 1.13 H PTT (Actin FS) 30.9 Sodium Potassium Chloride Carbon Dioxide Anion Gap BUN Creatinine Creat Clearance w eGFR Random Glucose Calcium Phosphorus Magnesium Total Bilirubin AST ALT Alkaline Phosphatase Creatine Kinase Creatine Kinase Index CK-MB (CK-2) Troponin I Total Protein Albumin Urine Color Yellow Urine Appearance Slcloudy Urine pH 6.0 Ur Specific [place] 1.021 Urine Protein Negative Urine Glucose (UA) Negative Urine Ketones Trace H Urine Blood 1+ H Urine Nitrite Negative Urine Bilirubin Negative Urine Urobilinogen Negative Ur Leukocyte Esterase 2+ H Urine WBC (Auto) 117 Urine RBC (Auto) 7 Ur Epithelial Cells Rare Urine Mucus Rare Blood Type Antibody Screen 06/03/18 05:30 WBC RBC Hgb Hct MCV MCH MCHC RDW Plt Count MPV Absolute Neuts (auto) Neutrophils % Lymphocytes % Monocytes % Eosinophils % Basophils % Nucleated RBC % PT with INR INR PTT (Actin FS) Sodium 146 H Potassium 3.9 Chloride 113 H Carbon Dioxide 25 Anion Gap 8 BUN 19 H Creatinine 0.7 Creat Clearance w eGFR > 60 Random Glucose 86 Calcium 8.2 L Phosphorus 3.5 Magnesium 1.8 Total Bilirubin 0.7 AST 24 ALT 15 Alkaline Phosphatase 90 Creatine Kinase 650 H Creatine Kinase Index 0.1 CK-MB (CK-2) 1.2 Troponin I Total Protein 6.0 L Albumin 2.4 L Urine Color Urine Appearance Urine pH Ur Specific [place] Urine Protein Urine Glucose (UA) Urine Ketones Urine Blood Urine Nitrite Urine Bilirubin Urine Urobilinogen Ur Leukocyte Esterase Urine WBC (Auto) Urine RBC (Auto) Ur Epithelial Cells Urine Mucus Blood Type Antibody Screen Active Medications Generic Name Dose Route Start Last Admin Trade Name Freq PRN Reason Stop Dose Admin Artificial Tears 1 drop 06/02/18 22:00 06/03/18 12:42 Artificial Tears OU 1 drop BID NABIL Administration Aspirin 81 mg 06/02/18 19:45 06/03/18 12:44 Asa - PO 81 mg DAILY NABIL Administration Atorvastatin Calcium 40 mg 06/02/18 22:00 06/02/18 22:47 Lipitor - PO Not Given HS NABIL Divalproex Sodium 125 mg 06/02/18 22:00 06/03/18 13:05 Depakote - PO 125 mg TID NABIL Administration Enoxaparin Sodium 30 mg 06/02/18 21:45 06/03/18 12:45 Lovenox - SQ 30 mg DAILY NABIL Administration Hydrochlorothiazide 12.5 mg 06/03/18 10:00 06/03/18 12:46 Hctz - PO 12.5 mg DAILY NABIL Administration Sodium Chloride 1,000 mls @ 75 mls/hr 06/02/18 20:00 06/02/18 23:30 1/2 Normal Saline IV 75 mls/hr ASDIR NABIL Administration Ceftriaxone Sodium 1 gm/ 50 mls @ 100 mls/hr 06/03/18 10:00 06/03/18 12:44 Dextrose IVPB 100 mls/hr DAILY NABIL Administration Protocol Levothyroxine Sodium 50 mcg 06/02/18 19:45 06/03/18 12:43 Synthroid - PO 50 mcg DAILY@0700 NABIL Administration Lisinopril 20 mg 06/02/18 20:00 06/03/18 12:45 Prinivil PO 20 mg DAILY NABIL Administration Non-Formulary Medication 28 mg 06/03/18 10:00 Memantine Hcl [Namenda Xr] PO DAILY [facility] Polyethylene Glycol 17 gm 06/02/18 19:45 06/03/18 11:44 Miralax (For Daily Use) - PO Not Given DAILY NABIL Quetiapine Fumarate 12.5 mg 06/02/18 22:00 06/02/18 22:40 Seroquel - PO 12.5 mg HS NABIL Administration ASSESSMENT/PLAN: 78 yo F with PMHx Alzheimer's Dementia, Parkinson's, bradycardia, HLD, HTN, previous UTI, currently wheelchair bound admitted with change in mental status and found to have UTI. Altered Mental status and leaning to the right -Likely metabolic secondary to UTI as mentioned below -CT head negative initially -Repeat CT to ensure no acute CVA -Neurology consulted Left leg pain -Knee X-ray with arthritic changes without any signs of fracture -Left leg duplex ordered -Left Hip X-ray ordered UTI -UA with 2+ LE, 117 WBCs -Rocephin 1 gm IV Daily -Pt clinically improved from yesterday as per the daughter -05/28 NS @ 75 cc/hr Alzheimer's Dimentia/Parkinson's -Likely progressing but unlikely the cause of her acute status -Continue Namenda 28 mg PO Daily -Depakote 125 mg PO TID -Seroquel 12.5 mg PO HS HLD -Lipitor 40 mg PO HS Hypothyroid -Synthroid 50 mcg PO AM HTN -HCTZ 12.5 mg PO Daily -Lisinopril 20 mg PO Daily Wheelchair bound -PT evaluation, likely complication of her Parkinson's DVT Prophylaxis -Lovenox 30 mg SQ Daily FEN -Fluids: 05/28 NS @ 75 cc/hr -Electrolytes: No electrolyte abnormalities, BMP in AM -Nutrition: Na controlled Diet Disposition Telemetry Visit type - Emergency Visit Emergency Visit: Yes ED Registration Date: 06/02/18 Care time: The patient presented to the Emergency Department on the above date and was hospitalized for further evaluation of their emergent condition. - New Patient This patient is new to me today: Yes Date on this admission: 06/03/18 - Critical Care Critical Care patient: No
--- NOTE | 2018-06-03 18:43 | CONSULT ---
Consult - text type - Consultation Consultation Note: NEUROLOGY CONSULTATION is greatly appreciated: This 78 yo RH woman lives with her daughter, Janae, and full-time health aides. PMH sig for HTN, Chol, hypothyroidism. Maintained on: Aspirin 81 mg; Atorvastatin; Levothyroxine 50 mcg; Lisinopril/ Hydrochlorothiazide; and Memantine 28 mg PO. Well-known to me with advanced Alzheimer's Disease. Mute, Progressive Myoclonic jerks. Has worsened in the past with recurrent UTI's. Last office visit (05/15/18) we added depakote sprinkle (125 mg) TID for myoclonic jerks and quetiapine (12.5 mg qHS) for sleep and agitation. Now admitted after few days of lethargy, leaning to the left side and UTI ( urinary LAB=[id number]). Now on ceftriaxone. CT scans of head (x2- both reviewed): Shows moderate, diffuse atrophy and scattered microvascular changes without heme or traumatic changes. ADARSH: No evidence of external head trauma. Neck rigid in all directions with good ROM. Non-tender NEUR: Awake, alert, staring. No speech. Follows no commands. + Glabella, snout, suck, grasps and palmomentals. Full huerta to threat and EOM's Rigid, bradykinetic. Considerably reduced myoclonic jerks (on VPA). Normal reflexes. Withdraws all fours. 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 Suggest: Continue antibiotics and hydration Continue Memantine ER 28 mg (patient can take meds from home) Continue Depakote sprinkle 125 mg q 8 hrs. Continue quetiapine 12.5 mg q HS Bedside ROM and OO bed to chair LEONOR. Thank you very much, Eugene Keene.
[2018-06-03] MEDS ORDERED: PT OWN MED DRAWER 7, Y5N ONE (22:25)
[2018-06-03] MEDS: ATORVASTATIN CA 40 MG TABLET (FP) PO SCH (22:59)
[2018-06-03] MEDS: QUEtiapine FUMARATE 25 MG TABLET (FP) PO SCH (22:59)
[2018-06-03] MEDS: SODIUM CHLORIDE 0.45% 1,000 ML IV SCH (23:00)
[2018-06-04 06:14] LABS: HEMATOCRIT 27.8 % (32.4-45.2); HEMOGLOBIN 8.8 GM/dL (10.7-15.3); MCHC 31.6 g/dl (32.0-36.0); MEAN CELL VOLUME 91.6 fl (80-96); MEAN PLT VOLUME 9.4 fl (7.5-11.1); PLATELET COUNT 161 K/MM3 (134-434); RBC 3.03 M/mm3 (3.60-5.2); RDW 14.5 % (11.6-15.6); WHITE BLOOD COUNT 5.6 K/mm3 (4.0-10.0)
[2018-06-04] MEDS ORDERED: PT OWN MED DRAWER 7, Y5N ONE ×6 (06:24→21:19)
[2018-06-04] MEDS: DIVALPROEX SODIUM 125 MG TABLET E.C. PO SCH ×2 (06:35→15:14)
[2018-06-04] MEDS: LEVOTHYROXINE NA 50 MCG TABLET (FP) PO SCH (06:36)
[2018-06-04 06:41] LABS: ANION GAP 5 MMOL/L (8-16); BLOOD UREA NITROGEN 18 mg/dL (7-18); CALCIUM 8.1 mg/dL (8.5-10.1); CHLORIDE 107 mmol/L (98-107); CO2 26 mmol/L (21-32); CREATININE 0.8 mg/dL (0.55-1.3); GLUCOSE,RANDOM 88 mg/dL (74-106); PHOSPHOROUS 3.8 mg/dL (2.5-4.9); POTASSIUM 3.9 mmol/L (3.5-5.1); SODIUM 139 mmol/L (136-145)
[2018-06-04] MEDS ORDERED: POTASSIUM CHLORIDE TABS 20 MEQ TABLET.ER (FP) PO ONE (08:04)
[2018-06-04] MEDS ORDERED: DEXTROSE 5%-WATER - 50 ML IVPB ONE (09:36)
[2018-06-04] MEDS ORDERED: cefTRIAXone SODIUM 1 GM VIAL ONE (09:36)
[2018-06-04] MEDS: CEFTRIAXONE 1 GM in DEXTROSE 5%-WATER - 50 ML IVPB SCH (09:49)
[2018-06-04] MEDS: ENOXAPARIN NA (PORCINE) 30 MG/0.3 ML DISP.SYRIN SQ SCH (09:50)
[2018-06-04] MEDS: POLYETHYLENE GLYCOL 3350 119 GM BTL PO SCH (09:51)
[2018-06-04] MEDS: HYDROCHLOROTHIAZIDE 12.5 MG CAPSULE (FP) PO SCH (09:51)
[2018-06-04] MEDS: ARTIFICIAL TEARS (POLYVINYL ALCOHOL) OPTH DROPS OU SCH ×2 (09:51→21:22)
[2018-06-04] MEDS: LISINOPRIL 20 MG TABLET (FP) PO SCH (09:51)
[2018-06-04] MEDS: ASPIRIN 81 MG CHEWABLE TABLETS PO SCH (09:51)
--- NOTE | 2018-06-04 10:53 | PN ---
Physical Exam: SUBJECTIVE: Patient seen and examined this AM. She was more alert today. nonverbal OBJECTIVE: Vital Signs Period Temp Pulse Resp BP Sys/Torres Pulse Ox Last 24 Hr 97.2 F-98.8 F 65-95 17-20 93-144/47-89 97-98 GENERAL: alert though nonverbal, no acute distress HEAD: Normocephalic, atraumatic. EYES: PERRL, no scleral icterus EARS, NOSE, THROAT: Dry mucus membranes NECK: supple without lymphadenopathy LUNGS: CTA b/l, no crackles or wheezes HEART: Regular rate and rhythm, normal S1 and S2 without murmur ABDOMEN: Soft, mild grimace on palpation, normoactive bowel sounds MUSCULOSKELETAL: ROM in tact EXTREMITIES: 2+ pulses, warm, well-perfused. No peripheral edema. minimal erythema on anterior portion of ankle NEUROLOGICAL: Cranial nerves difficult to assess but grossly in tact. Nonverbal SKIN: Warm, dry, no rashes or lesions noted Laboratory Results - last 24 hr 06/03/18 06/04/18 06/04/18 05:30 06:00 06:00 WBC 5.6 RBC 3.03 L Hgb 8.8 L Hct 27.8 L MCV 91.6 MCH 29.0 MCHC 31.6 L RDW 14.5 Plt Count 161 MPV 9.4 Sodium 146 H 139 Potassium 3.9 3.9 Chloride 113 H 107 Carbon Dioxide 25 26 Anion Gap 8 5 L BUN 19 H 18 Creatinine 0.7 0.8 Creat Clearance w eGFR > 60 > 60 Random Glucose 86 88 Calcium 8.2 L 8.1 L Phosphorus 3.5 3.8 Magnesium 1.8 2.0 Total Bilirubin 0.7 AST 24 ALT 15 Alkaline Phosphatase 90 Creatine Kinase 650 H 436 H Creatine Kinase Index 0.1 0.2 CK-MB (CK-2) 1.2 < 1.0 Total Protein 6.0 L Albumin 2.4 L Active Medications Generic Name Dose Route Start Last Admin Trade Name Freq PRN Reason Stop Dose Admin Artificial Tears 1 drop 06/02/18 22:00 06/03/18 23:07 Artificial Tears OU Not Given BID NABIL Aspirin 81 mg 06/02/18 19:45 06/03/18 12:44 Asa - PO 81 mg DAILY NABIL Administration Atorvastatin Calcium 40 mg 06/02/18 22:00 06/03/18 22:59 Lipitor - PO 40 mg HS NABIL Administration Divalproex Sodium 125 mg 06/02/18 22:00 06/04/18 06:35 Depakote - PO 125 mg TID NABIL Administration Enoxaparin Sodium 30 mg 06/02/18 21:45 06/03/18 12:45 Lovenox - SQ 30 mg DAILY NABIL Administration Hydrochlorothiazide 12.5 mg 06/03/18 10:00 06/03/18 12:46 Hctz - PO 12.5 mg DAILY NABIL Administration Sodium Chloride 1,000 mls @ 75 mls/hr 06/02/18 20:00 06/03/18 23:00 1/2 Normal Saline IV 75 mls/hr ASDIR NABIL Administration Ceftriaxone Sodium 1 gm/ 50 mls @ 100 mls/hr 06/03/18 10:00 06/03/18 12:44 Dextrose IVPB 100 mls/hr DAILY NABIL Administration Protocol Levothyroxine Sodium 50 mcg 06/02/18 19:45 06/04/18 06:36 Synthroid - PO 50 mcg DAILY@0700 NABIL Administration Lisinopril 20 mg 06/02/18 20:00 06/03/18 12:45 Prinivil PO 20 mg DAILY NABIL Administration Non-Formulary Medication 28 mg 06/03/18 10:00 Memantine Hcl [Namenda Xr] PO DAILY NABIL Polyethylene Glycol 17 gm 06/02/18 19:45 06/03/18 11:44 Miralax (For Daily Use) - PO Not Given DAILY NABIL Quetiapine Fumarate 12.5 mg 06/02/18 22:00 06/03/18 22:59 Seroquel - PO 12.5 mg HS NABIL Administration ASSESSMENT/PLAN: 78 yo F with PMHx Alzheimer's Dementia, Parkinson's, bradycardia, HLD, HTN, previous UTI, currently wheelchair bound admitted with change in mental status and found to have UTI. Acute metabolic Encephalopathy -Likely metabolic secondary to UTI as mentioned below -CT head negative initially -Repeat CT to ensure no acute CVA unchanged -Neurology consult appreciated -Physical Therapy Evaluation Left leg pain -Knee X-ray with arthritic changes without any signs of fracture -Left leg duplex without DVT -Left Hip X-ray without fracture -Left ankle and foot Xray pending, daughter states pt foot may have gotten trapped while rolling wheelchair UTI -UA with 2+ LE, 117 WBCs -Rocephin 1 gm IV Daily -Pt clinically improved from yesterday as per the daughter -05/28 NS @ 75 cc/hr Alzheimer's Dimentia/Parkinson's -Likely progressing but unlikely the cause of her acute status -Continue Namenda 28 mg PO Daily -Depakote 125 mg PO TID -Seroquel 12.5 mg PO HS HLD -Lipitor 40 mg PO HS Hypothyroid -Synthroid 50 mcg PO AM HTN -HCTZ 12.5 mg PO Daily -Lisinopril 20 mg PO Daily Wheelchair bound -PT evaluation, likely complication of her Parkinson's DVT Prophylaxis -Lovenox 30 mg SQ Daily FEN -Fluids: 05/28 NS @ 75 cc/hr -Electrolytes: No electrolyte abnormalities, BMP in AM -Nutrition: Na controlled Diet Disposition Telemetry Visit type - Emergency Visit Emergency Visit: Yes ED Registration Date: 06/02/18 Care time: The patient presented to the Emergency Department on the above date and was hospitalized for further evaluation of their emergent condition. - New Patient This patient is new to me today: No - Critical Care Critical Care patient: No
--- NOTE | 2018-06-04 11:04 | CONSULT ---
Admitting History and Physical - Primary Care Physician PCP: Jayy Olivier - Admission History of Present Illness: 78 yo admitted with increased feeding difficulty reported by pt's daughter. 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 Last seen by me in 2016.-Dementia with cognitive,language and speech initiation deficits. No dysarthria or dysphagia. Risk of oral holding at times. Important to provide most liberal solid diet as tolerate to continue sufficient nutritional intake. Nursing reports indefinite chewing this am with oral holding. No coughing reported. History Source: Medical Record Limitations to Obtaining History: Clinical Condition, Dementia - Past Medical History [employer] DEVEL[employer]: Yes: Alzheimer's, Dementia - Smoking History Smoking history: Never smoked Have you smoked in the past 12 months: No - Alcohol/Substance Use Hx Alcohol Use: No History - Admission Reason For Visit: URINARY TRACT INFECTION,FAILURE TO THRIVE,AMS - Diagnostics CT Scan: Report Reviewed (moderate, diffuse atrophy and scattered microvascular changes without heme or traumatic changes.) - General Mental Status: Confused, Flat Affect Attention: Severe Impairment Ability to Follow Directions: Poor Head/Neck Control: Fair - Hearing Hearing: Normal Speech Evaluation - Communication Primary Language: HONDUR[place] Communication: Yes: Non-Communicable - Speech Characteristics Voice Phonatory-based Quality: Yes: Normal (Vocalized with good vocal quality noted) - Language/Verbal Expression Functional Communication Status: Yes: Severely Impaired Attention: Yes: Severe Impairment - Memory/Perception custodial Memory: Yes: Severely Impaired Short Term Memory: Yes: Severely Impaired - Swallow Evaluation/Bedside Assessment Current Nutritional Intake: Regular, Thin Liquids Oral Secretions: Yes: WFL Dentition: Yes: Adequate Laryngeal Movement: Able to Palpate Rate of Intake: Slow/Holding Labial Seal: WFL Chewing: Impaired (extended. Mastication with cracker seemed fairly functional. This may waiver based on cognitive status at time of PO intake) Oral Prep Time: WFL A-P Transit: WFL Timing of Swallow: WFL Coughing/Throat Clear: No Change in Voice: No Recommendations - Speech Evaluation, Impression/Plan Impression: Significant deterioration in cognitive status since my last assessment in 2016.She is no longer communicative, severe attention deficits, rare ability to establish eye contact and engage. I suspect feeding difficulty has been exacerbated by Toxic-Metabolic encephalopathy sec UTI, hopefully to improve with A/B tx. Pt seemed to tolerate solids for me as well as liquids from a straw. However, skills will vary based on distractibility and pt awareness of food in her mouth. - Disposition Discharge to: To be Determined - Dysphagia Impressions/Plan Swallowing Skills: Impaired Dysphagia Impressions: Mild Impairment, Risk of Aspiration (due to distractibility and severe attention deficits. Swallow reflex itself is quite brisk.), Ongoing Evaluation *Silent aspiration: cannot be R/O at bedside Dysphagia Treatment Plan: Small Bites, Chin Tuck/Down, Clear Pocket Food ( review every few bites and mouth care after each meal.), Trial Feedings, Safe Rate, 1/2 tsp. at a time, Elevate HOB during feed Recommendations: Other (Alternate solids with liquids, cold with hot, to increase sensory awareness and PO manipulation..) - Recommendations Diet Consistency: Regular Medication Administration: Crushed with applesauce Liquids: Thin Liquids Supplement: Ensure, Magic Cup
[2018-06-04] MEDS ORDERED: diphenhydrAMINE HCL 25 MG CAPSULE (FP) PO PRN (16:25)
--- NOTE | 2018-06-04 16:57 | PN ---
Teaching Attending Note Name of Resident: Reggie Najera ATTENDING PHYSICIAN STATEMENT I saw and evaluated the patient. I reviewed the resident's note and discussed the case with the resident. I agree with the resident's findings and plan as documented. SUBJECTIVE: Patient is more alert today. Non-verbal. OBJECTIVE: Vital Signs Period Temp Pulse Resp BP Sys/Torres Pulse Ox Last 24 Hr 97.2 F-98.1 F 62-69 18-20 93-156/47-98 97-98 HEART: S1S2, RRR LUNGS: Clear ABDOMEN: Soft, non-distended, ? LLQ tenderness, normal BS EXTREMITIES: No edema, ecchymosis of lateral left foot Laboratory Results - last 24 hr 06/04/18 06/04/18 06:00 06:00 WBC 5.6 RBC 3.03 L Hgb 8.8 L Hct 27.8 L MCV 91.6 MCH 29.0 MCHC 31.6 L RDW 14.5 Plt Count 161 MPV 9.4 Sodium 139 Potassium 3.9 Chloride 107 Carbon Dioxide 26 Anion Gap 5 L BUN 18 Creatinine 0.8 Creat Clearance w eGFR > 60 Random Glucose 88 Calcium 8.1 L Phosphorus 3.8 Magnesium 2.0 Creatine Kinase 436 H Creatine Kinase Index 0.2 CK-MB (CK-2) < 1.0 Current Medications Generic Name Dose Route Start Last Admin Trade Name Freq PRN Reason Stop Dose Admin Artificial Tears 1 drop 06/02/18 22:00 06/04/18 09:51 Artificial Tears OU 1 drop BID NABIL Administration Aspirin 81 mg 06/02/18 19:45 06/04/18 09:51 Asa - PO 81 mg DAILY NABIL Administration Atorvastatin Calcium 40 mg 06/02/18 22:00 06/03/18 22:59 Lipitor - PO 40 mg HS NABIL Administration Divalproex Sodium 125 mg 06/02/18 22:00 06/04/18 15:14 Depakote - PO 125 mg TID NABIL Administration Enoxaparin Sodium 30 mg 06/02/18 21:45 06/04/18 09:50 Lovenox - SQ 30 mg DAILY NABIL Administration Hydrochlorothiazide 12.5 mg 06/03/18 10:00 06/04/18 09:51 Hctz - PO 12.5 mg DAILY NABIL Administration Sodium Chloride 1,000 mls @ 75 mls/hr 06/02/18 20:00 06/03/18 23:00 1/2 Normal Saline IV 75 mls/hr ASDIR NABIL Administration Ceftriaxone Sodium 1 gm/ 50 mls @ 100 mls/hr 06/03/18 10:00 06/04/18 09:49 Dextrose IVPB 100 mls/hr DAILY NABIL Administration Protocol Levothyroxine Sodium 50 mcg 06/02/18 19:45 06/04/18 06:36 Synthroid - PO 50 mcg DAILY@0700 NABIL Administration Lisinopril 20 mg 06/02/18 20:00 06/04/18 09:51 Prinivil PO 20 mg DAILY NABIL Administration Non-Formulary Medication 28 mg 06/03/18 10:00 Memantine Hcl [Namenda Xr] PO DAILY NABIL Polyethylene Glycol 17 gm 06/02/18 19:45 06/04/18 09:51 Miralax (For Daily Use) - PO 17 gm DAILY NABIL Administration Quetiapine Fumarate 12.5 mg 06/02/18 22:00 06/03/18 22:59 Seroquel - PO 12.5 mg HS NABIL Administration ASSESSMENT AND PLAN: This is a 78 year old woman with a history of Parkinson disease, dementia, HTN, hyperlipidemia, UTIs, bradycardia who presented to the ED with altered mental status. 1. Acute metabolic encephalopathy secondary to UTI - Improving - Continue ceftriaxone - Follow up urine culture 2. Weakness, generalized 3. Parkinson disease 4. Dementia - Continue Namenda, Seroquel, Depakote 5. HTN - Continue lisinopil, HCTZ 6. Hyperlipidemia - Continue Lipitor 7. Hypothyroidism - Continue Synthroid 8. Elevated CK - Cause not clear - possibly secondary to statin use but is improving with IV fluid 9. Hypernatremia, mild - Likely secondary to dehydration - Improved with IV fluid 10. Anemia - Hemoglobin 11.0 -> 9.5 -> 8.8 - Possibly secondary to IV fluid - No evidence of bleeding - Continue to monitor hgb
[2018-06-04] MEDS: PATIENT'S OWN MEDICATION (NON-FORMULARY) (Memantine Hcl [Namenda Xr] 0 MG) PO SCH ×2 (19:25→19:28)
[2018-06-04] MEDS: QUEtiapine FUMARATE 25 MG TABLET (FP) PO SCH (21:21)
[2018-06-04] MEDS: ATORVASTATIN CA 40 MG TABLET (FP) PO SCH (21:21)
[2018-06-04] MEDS: SODIUM CHLORIDE 0.45% 1,000 ML IV SCH (21:22)
[2018-06-04] MEDS: DIVALPROEX SODIUM 125 MG SPRINKLE CAPS PO SCH (21:22)
[2018-06-05] MEDS ORDERED: PT OWN MED DRAWER 7, Y5N ONE ×4 (05:49→18:38)
[2018-06-05] MEDS: DIVALPROEX SODIUM 125 MG SPRINKLE CAPS PO SCH ×3 (05:58→21:05)
[2018-06-05] MEDS: LEVOTHYROXINE NA 50 MCG TABLET (FP) PO SCH (05:59)
[2018-06-05 06:14] LABS: HEMATOCRIT 32.1 % (32.4-45.2); HEMOGLOBIN 10.1 GM/dL (10.7-15.3); MCH 28.8 pg (25.7-33.7); MCHC 31.6 g/dl (32.0-36.0); MEAN CELL VOLUME 91.1 fl (80-96); MEAN PLT VOLUME 9.5 fl (7.5-11.1); PLATELET COUNT 199 K/MM3 (134-434); RBC 3.52 M/mm3 (3.60-5.2); RDW 14.3 % (11.6-15.6)
[2018-06-05 06:45] LABS: ANION GAP 6 MMOL/L (8-16); BLOOD UREA NITROGEN 12 mg/dL (7-18); CALCIUM 8.4 mg/dL (8.5-10.1); CHLORIDE 109 mmol/L (98-107); CO2 27 mmol/L (21-32); CREATININE 0.8 mg/dL (0.55-1.3); GLUCOSE,RANDOM 88 mg/dL (74-106); POTASSIUM 4.3 mmol/L (3.5-5.1); SODIUM 141 mmol/L (136-145)
--- NOTE | 2018-06-05 09:47 | PN ---
Physical Exam: SUBJECTIVE: Patient seen and examined this AM. Appears alert but does not react to questioning. OBJECTIVE: Vital Signs Period Temp Pulse Resp BP Sys/Torres Pulse Ox Last 24 Hr 97.5 F-99.4 F 62-75 16-20 124-159/62-98 98 GENERAL: alert though nonverbal, no acute distress HEAD: Normocephalic, atraumatic. EYES: PERRL, no scleral icterus EARS, NOSE, THROAT: Dry mucus membranes NECK: supple without lymphadenopathy LUNGS: CTA b/l, no crackles or wheezes HEART: Regular rate and rhythm, normal S1 and S2 without murmur ABDOMEN: Soft, mild grimace on palpation, normoactive bowel sounds MUSCULOSKELETAL: ROM in tact EXTREMITIES: 2+ pulses, warm, well-perfused. No peripheral edema. minimal erythema on anterior portion of ankle NEUROLOGICAL: Cranial nerves difficult to assess but grossly in tact. Nonverbal SKIN: Warm, dry, no rashes or lesions noted Laboratory Results - last 24 hr 06/05/18 06/05/18 05:55 05:55 WBC 6.0 RBC 3.52 L Hgb 10.1 L Hct 32.1 L D MCV 91.1 MCH 28.8 MCHC 31.6 L RDW 14.3 Plt Count 199 D MPV 9.5 Sodium 141 Potassium 4.3 Chloride 109 H Carbon Dioxide 27 Anion Gap 6 L BUN 12 Creatinine 0.8 Creat Clearance w eGFR > 60 Random Glucose 88 Calcium 8.4 L Active Medications Generic Name Dose Route Start Last Admin Trade Name Freq PRN Reason Stop Dose Admin Artificial Tears 1 drop 06/02/18 22:00 06/04/18 21:22 Artificial Tears OU 1 drop BID NABIL Administration Aspirin 81 mg 06/02/18 19:45 06/04/18 09:51 Asa - PO 81 mg DAILY NABIL Administration Atorvastatin Calcium 40 mg 06/02/18 22:00 06/04/18 21:21 Lipitor - PO 40 mg HS NABIL Administration Diphenhydramine HCl 25 mg 06/04/18 16:25 Benadryl - PO DAILY PRN FOR ITCHING Divalproex Sodium 125 mg 06/04/18 22:00 06/05/18 05:58 Depakote Sprinkle Caps - PO 125 mg TID NABIL Administration Enoxaparin Sodium 30 mg 06/02/18 21:45 06/04/18 09:50 Lovenox - SQ 30 mg DAILY NABIL Administration Hydrochlorothiazide 12.5 mg 06/03/18 10:00 06/04/18 09:51 Hctz - PO 12.5 mg DAILY NABIL Administration Sodium Chloride 1,000 mls @ 75 mls/hr 06/02/18 20:00 06/04/18 21:22 1/2 Normal Saline IV 75 mls/hr ASDIR NABIL Administration Ceftriaxone Sodium 1 gm/ 50 mls @ 100 mls/hr 06/03/18 10:00 06/04/18 09:49 Dextrose IVPB 100 mls/hr DAILY NABIL Administration Protocol Levothyroxine Sodium 50 mcg 06/02/18 19:45 06/05/18 05:59 Synthroid - PO 50 mcg DAILY@0700 NABIL Administration Lisinopril 20 mg 06/02/18 20:00 06/04/18 09:51 Prinivil PO 20 mg DAILY NABIL Administration Non-Formulary Medication 0 mg 06/04/18 18:00 06/04/18 19:28 Memantine Hcl [Namenda Xr] PO 28 mg DAILY NABIL Administration Polyethylene Glycol 17 gm 06/02/18 19:45 06/04/18 09:51 Miralax (For Daily Use) - PO 17 gm DAILY NABIL Administration Quetiapine Fumarate 12.5 mg 06/02/18 22:00 06/04/18 21:21 Seroquel - PO 12.5 mg HS NABIL Administration ASSESSMENT/PLAN: 78 yo F with PMHx Alzheimer's Dementia, Parkinson's, bradycardia, HLD, HTN, previous UTI, currently wheelchair bound admitted with change in mental status and found to have UTI. Acute metabolic Encephalopathy -Likely metabolic secondary to UTI as mentioned below -CT head negative initially -Repeat CT to ensure no acute CVA unchanged -Neurology consult appreciated -Physical Therapy Evaluation Left leg pain -Knee X-ray with arthritic changes without any signs of fracture -Left leg duplex without DVT -Left Hip X-ray without fracture -Left ankle and foot Xray pending, daughter states pt foot may have gotten trapped while rolling wheelchair UTI -UA with 2+ LE, 117 WBCs -Rocephin switched to Levaquin which can be converted to oral for total 7 days upon discharge (Abx day 4 today) -Pt clinically improved from yesterday as per the daughter -1/2 NS @ 75 cc/hr -E. fecalis fairly sensitive Alzheimer's Dimentia/Parkinson's -Likely progressing but unlikely the cause of her acute status -Continue Namenda 28 mg PO Daily -Depakote 125 mg PO TID -Seroquel 12.5 mg PO HS HLD -Lipitor 40 mg PO HS Hypothyroid -Synthroid 50 mcg PO AM HTN -HCTZ 12.5 mg PO Daily -Lisinopril 20 mg PO Daily Wheelchair bound -PT evaluation, likely complication of her Parkinson's DVT Prophylaxis -Lovenox 30 mg SQ Daily FEN -Fluids: 05/28 NS @ 75 cc/hr -Electrolytes: No electrolyte abnormalities, BMP in AM -Nutrition: Regular Diet with ensure, Magic Cup with dinner Disposition Telemetry Visit type - Emergency Visit Emergency Visit: Yes ED Registration Date: 06/02/18 Care time: The patient presented to the Emergency Department on the above date and was hospitalized for further evaluation of their emergent condition. - New Patient This patient is new to me today: No - Critical Care Critical Care patient: No
[2018-06-05] MEDS ORDERED: DEXTROSE 5%-WATER - 50 ML IVPB ONE (10:34)
[2018-06-05] MEDS ORDERED: cefTRIAXone SODIUM 1 GM VIAL ONE (10:34)
[2018-06-05] MEDS: CEFTRIAXONE 1 GM in DEXTROSE 5%-WATER - 50 ML IVPB SCH (10:36)
[2018-06-05] MEDS: ASPIRIN 81 MG CHEWABLE TABLETS PO SCH (10:37)
[2018-06-05] MEDS: LISINOPRIL 20 MG TABLET (FP) PO SCH (10:37)
[2018-06-05] MEDS: HYDROCHLOROTHIAZIDE 12.5 MG CAPSULE (FP) PO SCH (10:37)
[2018-06-05] MEDS: ENOXAPARIN NA (PORCINE) 30 MG/0.3 ML DISP.SYRIN SQ SCH (10:37)
[2018-06-05] MEDS: PATIENT'S OWN MEDICATION (NON-FORMULARY) (Memantine Hcl [Namenda Xr] 0 MG) PO SCH (10:38)
[2018-06-05] MEDS: ARTIFICIAL TEARS (POLYVINYL ALCOHOL) OPTH DROPS OU SCH ×2 (10:38→21:40)
[2018-06-05] MEDS: POLYETHYLENE GLYCOL 3350 119 GM BTL PO SCH (10:42)
--- NOTE | 2018-06-05 14:35 | PN ---
Teaching Attending Note Name of Resident: Reggie Najera ATTENDING PHYSICIAN STATEMENT I saw and evaluated the patient. I reviewed the resident's note and discussed the case with the resident. I agree with the resident's findings and plan as documented. SUBJECTIVE: Emanuel is awake and alert. She appears comfortable and is non- verbal. OBJECTIVE: Vital Signs Period Temp Pulse Resp BP Sys/Torres Pulse Ox Last 24 Hr 97.8 F-99.4 F 54-75 16-20 116-159/50-93 98 HEART: S1S2, RRR LUNGS: Clear ABDOMEN: Soft, non-distended, no apparent tenderness, normal BS EXTREMITIES: No edema, ecchymosis of lateral left foot Laboratory Results - last 24 hr 06/05/18 06/05/18 05:55 05:55 WBC 6.0 RBC 3.52 L Hgb 10.1 L Hct 32.1 L D MCV 91.1 MCH 28.8 MCHC 31.6 L RDW 14.3 Plt Count 199 D MPV 9.5 Sodium 141 Potassium 4.3 Chloride 109 H Carbon Dioxide 27 Anion Gap 6 L BUN 12 Creatinine 0.8 Creat Clearance w eGFR > 60 Random Glucose 88 Calcium 8.4 L Current Medications Generic Name Dose Route Start Last Admin Trade Name Freq PRN Reason Stop Dose Admin Artificial Tears 1 drop 06/02/18 22:00 06/05/18 10:38 Artificial Tears OU 1 drop BID NABIL Administration Aspirin 81 mg 06/02/18 19:45 06/05/18 10:37 Asa - PO 81 mg DAILY NABIL Administration Atorvastatin Calcium 40 mg 06/02/18 22:00 06/04/18 21:21 Lipitor - PO 40 mg HS NABIL Administration Diphenhydramine HCl 25 mg 06/04/18 16:25 Benadryl - PO DAILY PRN FOR ITCHING Divalproex Sodium 125 mg 06/04/18 22:00 06/05/18 13:30 Depakote Sprinkle Caps - PO 125 mg TID NABIL Administration Enoxaparin Sodium 30 mg 06/02/18 21:45 06/05/18 10:37 Lovenox - SQ 30 mg DAILY NABIL Administration Hydrochlorothiazide 12.5 mg 06/03/18 10:00 06/05/18 10:37 Hctz - PO 12.5 mg DAILY NABIL Administration Sodium Chloride 1,000 mls @ 75 mls/hr 06/02/18 20:00 06/04/18 21:22 1/2 Normal Saline IV 75 mls/hr ASDIR NABIL Administration Levofloxacin 750 mg in 150 mls @ 100 mls/hr 06/05/18 13:50 Levaquin 750 Mg Premixed Ivpb - IVPB 06/05/18 15:19 DAILY ONE Protocol Levothyroxine Sodium 50 mcg 06/02/18 19:45 06/05/18 05:59 Synthroid - PO 50 mcg DAILY@0700 NABIL Administration Lisinopril 20 mg 06/02/18 20:00 06/05/18 10:37 Prinivil PO 20 mg DAILY NABIL Administration Non-Formulary Medication 0 mg 06/04/18 18:00 06/05/18 10:38 Memantine Hcl [Namenda Xr] PO 28 mg DAILY NABIL Administration Polyethylene Glycol 17 gm 06/02/18 19:45 06/05/18 10:42 Miralax (For Daily Use) - PO 17 gm DAILY NABIL Administration Quetiapine Fumarate 12.5 mg 06/02/18 22:00 06/04/18 21:21 Seroquel - PO 12.5 mg HS NABIL Administration ASSESSMENT AND PLAN: This is a 78 year old woman with a history of Parkinson disease, dementia, HTN, hyperlipidemia, UTIs, bradycardia who presented to the ED with altered mental status. 1. Acute metabolic encephalopathy secondary to UTI - Improving - Urine culture growing E. faecalis - Ceftriaxone changed to Levaquin 2. Weakness, generalized 3. Parkinson disease 4. Dementia - Continue Namenda, Seroquel, Depakote 5. HTN - Continue lisinopil, HCTZ 6. Hyperlipidemia - Continue Lipitor 7. Hypothyroidism - Continue Synthroid 8. Elevated CK - Cause not clear - possibly secondary to statin use but improved with IV fluid 9. Hypernatremia, mild - Likely secondary to dehydration - Improved with IV fluid 10. Anemia - Hemoglobin improved to 10.1 today - Possibly secondary to IV fluid - No evidence of bleeding - Continue to monitor hgb 11. Left leg/foot pain with ecchymosis of left foot - X-rays of left hip and left knee show mild degenerative disease - X-rays of left ankle/foot pending
[2018-06-05] MEDS ORDERED: ACETAMINOPHEN 500 MG TABLET (FP) PO PRN (17:17)
--- NOTE | 2018-06-05 18:28 | PN ---
Progress Note, CALENDER OPERATOR - Note Progress Note: 78 yo seen at bedside with daughter presents as a follow up to swallow eval by Curt with recommendations for regular solids with thin liquids as tolerated. Pt is non verbal but very responsive to daughter who was feeding her a banana. Chart review indicates pt is consuming 25% breakfast and lunch but eats fine at dinner (with family member). No s/s of aspiration being observed during this meeting. Recommendations: continue regular solids with thin liquids as tolerated. observe standard aspiration precautions and provide mouth care after meals. Crush meds in applesauce for safe swallowing. Results given verbally to charge attendant and pcp via chart.
[2018-06-05] MEDS: SODIUM CHLORIDE 0.45% 1,000 ML IV SCH (21:04)
[2018-06-05] MEDS: QUEtiapine FUMARATE 25 MG TABLET (FP) PO SCH (21:05)
[2018-06-05] MEDS: ATORVASTATIN CA 40 MG TABLET (FP) PO SCH (21:05)
[2018-06-06] MEDS ORDERED: PT OWN MED DRAWER 7, Y5N ONE ×3 (06:26→21:21)
[2018-06-06] MEDS: LEVOTHYROXINE NA 50 MCG TABLET (FP) PO SCH (06:29)
[2018-06-06] MEDS: DIVALPROEX SODIUM 125 MG SPRINKLE CAPS PO SCH ×3 (06:29→21:24)
[2018-06-06] MEDS: PATIENT'S OWN MEDICATION (NON-FORMULARY) (Memantine Hcl [Namenda Xr] 0 MG) PO SCH (09:28)
[2018-06-06] MEDS: ENOXAPARIN NA (PORCINE) 30 MG/0.3 ML DISP.SYRIN SQ SCH (09:29)
[2018-06-06] MEDS: LISINOPRIL 20 MG TABLET (FP) PO SCH (09:32)
[2018-06-06] MEDS: HYDROCHLOROTHIAZIDE 12.5 MG CAPSULE (FP) PO SCH (09:32)
[2018-06-06] MEDS: ASPIRIN 81 MG CHEWABLE TABLETS PO SCH (09:32)
[2018-06-06] MEDS: POLYETHYLENE GLYCOL 3350 119 GM BTL PO SCH (09:38)
[2018-06-06] MEDS: ARTIFICIAL TEARS (POLYVINYL ALCOHOL) OPTH DROPS OU SCH ×2 (09:38→21:24)
--- NOTE | 2018-06-06 13:03 | PN ---
Teaching Attending Note Name of Resident: Reggie Najera ATTENDING PHYSICIAN STATEMENT I saw and evaluated the patient. I reviewed the resident's note and discussed the case with the resident. I agree with the resident's findings and plan as documented. SUBJECTIVE: Patient is alert and non-verbal. OBJECTIVE: Vital Signs Period Temp Pulse Resp BP Sys/Torres Pulse Ox Last 24 Hr 97.2 F-99.1 F 57-75 16-18 106-142/46-65 95-99 HEART: S1S2, RRR LUNGS: Clear ABDOMEN: Soft, non-distended, no apparent tenderness, normal BS EXTREMITIES: No edema, ecchymosis of lateral left foot Current Medications Generic Name Dose Route Start Last Admin Trade Name Freq PRN Reason Stop Dose Admin Acetaminophen 500 mg 06/05/18 17:17 Tylenol - PO Q8H PRN PAIN LEVEL 1 - 3 Artificial Tears 1 drop 06/02/18 22:00 06/06/18 09:38 Artificial Tears OU 1 drop BID NABIL Administration Aspirin 81 mg 06/02/18 19:45 06/06/18 09:32 Asa - PO 81 mg DAILY NABIL Administration Atorvastatin Calcium 40 mg 06/02/18 22:00 06/05/18 21:05 Lipitor - PO 40 mg HS NABIL Administration Diphenhydramine HCl 25 mg 06/04/18 16:25 Benadryl - PO DAILY PRN FOR ITCHING Divalproex Sodium 125 mg 06/05/18 20:00 06/06/18 06:29 Depakote Sprinkle Caps - PO 125 mg DAILY@0600,1400,2000 NABIL Administration Enoxaparin Sodium 30 mg 06/02/18 21:45 06/06/18 09:29 Lovenox - SQ 30 mg DAILY NABIL Administration Hydrochlorothiazide 12.5 mg 06/03/18 10:00 06/06/18 09:32 Hctz - PO 12.5 mg DAILY NABIL Administration Sodium Chloride 1,000 mls @ 75 mls/hr 06/02/18 20:00 06/05/18 21:04 1/2 Normal Saline IV 75 mls/hr ASDIR NABIL Administration Levofloxacin 750 mg in 150 mls @ 100 mls/hr 06/05/18 16:00 06/06/18 09:32 Levaquin 750 Mg Premixed Ivpb - IVPB 100 mls/hr DAILY NABIL Administration Protocol Levothyroxine Sodium 50 mcg 06/02/18 19:45 06/06/18 06:29 Synthroid - PO 50 mcg DAILY@0700 NABIL Administration Lisinopril 20 mg 06/02/18 20:00 06/06/18 09:32 Prinivil PO 20 mg DAILY NABIL Administration Non-Formulary Medication 0 mg 06/04/18 18:00 06/06/18 09:28 Memantine Hcl [Namenda Xr] PO 28 mg DAILY NABIL Administration Polyethylene Glycol 17 gm 06/02/18 19:45 06/06/18 09:38 Miralax (For Daily Use) - PO 17 gm DAILY NABIL Administration Quetiapine Fumarate 12.5 mg 06/05/18 20:00 06/05/18 21:05 Seroquel - PO 12.5 mg DAILY@2000 NABIL Administration ASSESSMENT AND PLAN: This is a 78 year old woman with a history of Parkinson disease, dementia, HTN, hyperlipidemia, UTIs, bradycardia who presented to the ED with altered mental status. 1. Acute metabolic encephalopathy secondary to E. faecalis UTI - Improved - Continue Levaquin (day 2) 2. Weakness, generalized 3. Parkinson disease 4. Dementia - Continue Namenda, Seroquel, Depakote 5. HTN - Continue lisinopil, HCTZ 6. Hyperlipidemia - Continue Lipitor 7. Hypothyroidism - Continue Synthroid 8. Elevated CK - Cause not clear - possibly secondary to statin use but improved with IV fluid 9. Hypernatremia, mild - Likely secondary to dehydration - Improved with IV fluid 10. Anemia - Possibly secondary to IV fluid - No evidence of bleeding - Continue to monitor hgb 11. Left leg/foot pain with ecchymosis of left foot - X-rays of left hip and left knee show mild degenerative disease - X-rays of left ankle/foot show no fracture 12. Disposition - Continue PT - patient is bed/wheelchair bound at home - Ok for discharge home - daughter says she cannot take her home until she has a yoel lift which she has ordered. Alternatively, while awaiting delivery, she is asking about respite care
[2018-06-06] MEDS ORDERED: MINERAL OIL ENEMA 133 ML ENEMA PR ONE (16:16)
--- NOTE | 2018-06-06 17:18 | PN ---
Progress Note, SYSTEMS COORDINATOR - Note Progress Note: 78 yo female seen at bedside for follow up to swallow eval. Chart review of nutritional intake appears to have improved to 50-100% over the past 24 hours. Pt is also verbally responding to social greetings (simple responses). continue current regular diet with thin liquids as tolerated. Observe aspiration precautions. Results given to bellows charger assembler and pcp via chart.
[2018-06-06] MEDS: ATORVASTATIN CA 40 MG TABLET (FP) PO SCH (21:23)
[2018-06-06] MEDS: SODIUM CHLORIDE 0.45% 1,000 ML IV SCH (21:23)
[2018-06-06] MEDS: DOCUSATE NA 100 MG/10 ML UNIT-DOSE CUPS PO SCH (21:24)
[2018-06-06] MEDS: QUEtiapine FUMARATE 25 MG TABLET (FP) PO SCH (21:24)
[2018-06-06] MEDS ORDERED: DOCUSATE SODIUM 100 MG CAPSULE (FP) PO SCH (22:00)
--- NOTE | 2018-06-06 23:25 | PN ---
Physical Exam: SUBJECTIVE: Patient seen and examined this AM. She is similar in appearance to yesterday OBJECTIVE: Vital Signs Period Temp Pulse Resp BP Sys/Torres Pulse Ox Last 24 Hr 97.2 F-99.1 F 57-87 16-18 108-137/50-92 99 GENERAL: alert though nonverbal, no acute distress HEAD: Normocephalic, atraumatic. EYES: PERRL, no scleral icterus EARS, NOSE, THROAT: Dry mucus membranes NECK: supple without lymphadenopathy LUNGS: CTA b/l, no crackles or wheezes HEART: Regular rate and rhythm, normal S1 and S2 without murmur ABDOMEN: Soft, mild grimace on palpation, normoactive bowel sounds MUSCULOSKELETAL: ROM in tact EXTREMITIES: 2+ pulses, warm, well-perfused. No peripheral edema. minimal erythema on anterior portion of ankle NEUROLOGICAL: Cranial nerves difficult to assess but grossly in tact. Nonverbal SKIN: Warm, dry, no rashes or lesions noted Active Medications Generic Name Dose Route Start Last Admin Trade Name Freq PRN Reason Stop Dose Admin Acetaminophen 500 mg 06/05/18 17:17 Tylenol - PO Q8H PRN PAIN LEVEL 1 - 3 Artificial Tears 1 drop 06/02/18 22:00 06/06/18 21:24 Artificial Tears OU 1 drop BID NABIL Administration Aspirin 81 mg 06/02/18 19:45 06/06/18 09:32 Asa - PO 81 mg DAILY NABIL Administration Atorvastatin Calcium 40 mg 06/02/18 22:00 06/06/18 21:23 Lipitor - PO 40 mg HS NABIL Administration Diphenhydramine HCl 25 mg 06/04/18 16:25 Benadryl - PO DAILY PRN FOR ITCHING Divalproex Sodium 125 mg 06/05/18 20:00 06/06/18 21:24 Depakote Sprinkle Caps - PO 125 mg DAILY@0600,1400,2000 NABIL Administration Docusate Sodium 100 mg 06/06/18 22:00 06/06/18 21:24 Colace Liquid - PO 100 mg BID NABIL Administration Enoxaparin Sodium 30 mg 06/02/18 21:45 06/06/18 09:29 Lovenox - SQ 30 mg DAILY NABIL Administration Hydrochlorothiazide 12.5 mg 06/03/18 10:00 06/06/18 09:32 Hctz - PO 12.5 mg DAILY NABIL Administration Sodium Chloride 1,000 mls @ 75 mls/hr 06/02/18 20:00 06/06/18 21:23 1/2 Normal Saline IV 75 mls/hr ASDIR NABIL Administration Levofloxacin 750 mg in 150 mls @ 100 mls/hr 06/05/18 16:00 06/06/18 09:32 Levaquin 750 Mg Premixed Ivpb - IVPB 100 mls/hr DAILY NABIL Administration Protocol Levothyroxine Sodium 50 mcg 06/02/18 19:45 06/06/18 06:29 Synthroid - PO 50 mcg DAILY@0700 NABIL Administration Lisinopril 20 mg 06/02/18 20:00 06/06/18 09:32 Prinivil PO 20 mg DAILY NABIL Administration Non-Formulary Medication 0 mg 06/04/18 18:00 06/06/18 09:28 Memantine Hcl [Namenda Xr] PO 28 mg DAILY NABIL Administration Polyethylene Glycol 17 gm 06/02/18 19:45 06/06/18 09:38 Miralax (For Daily Use) - PO 17 gm DAILY NABIL Administration Quetiapine Fumarate 12.5 mg 06/05/18 20:00 06/06/18 21:24 Seroquel - PO 12.5 mg DAILY@1999 NABIL Administration ASSESSMENT/PLAN: 78 yo F with PMHx Alzheimer's Dementia, Parkinson's, bradycardia, HLD, HTN, previous UTI, currently wheelchair bound admitted with change in mental status and found to have UTI. Acute metabolic Encephalopathy -Likely metabolic secondary to UTI as mentioned below -CT head negative initially -Repeat CT to ensure no acute CVA unchanged -Neurology consult appreciated -Physical Therapy Evaluation Left leg pain -Knee X-ray with arthritic changes without any signs of fracture -Left leg duplex without DVT -Left Hip X-ray without fracture -Left ankle and foot Xray pending, daughter states pt foot may have gotten trapped while rolling wheelchair UTI -UA with 2+ LE, 117 WBCs -Rocephin switched to Levaquin which can be converted to oral for total 7 days upon discharge (Abx day 5 today) -Pt clinically improved from yesterday as per the daughter -1/2 NS @ 75 cc/hr -E. fecalis fairly sensitive -Stable for d/c to home Alzheimer's Dimentia/Parkinson's -Likely progressing but unlikely the cause of her acute status -Continue Namenda 28 mg PO Daily -Depakote 125 mg PO TID -Seroquel 12.5 mg PO HS HLD -Lipitor 40 mg PO HS Hypothyroid -Synthroid 50 mcg PO AM HTN -HCTZ 12.5 mg PO Daily -Lisinopril 20 mg PO Daily Wheelchair bound -PT evaluation, likely complication of her Parkinson's -PT did not recommend rehab placement as it would likely not be beneficial for pt ambulatory status DVT Prophylaxis -Lovenox 30 mg SQ Daily FEN -Fluids: 1/2 NS @ 75 cc/hr -Electrolytes: No electrolyte abnormalities, BMP in AM -Nutrition: Regular Diet with ensure, Magic Cup with dinner Disposition Telemetry Visit type - Emergency Visit Emergency Visit: Yes ED Registration Date: 06/02/18 Care time: The patient presented to the Emergency Department on the above date and was hospitalized for further evaluation of their emergent condition. - New Patient This patient is new to me today: No - Critical Care Critical Care patient: No
[2018-06-07] MEDS ORDERED: PT OWN MED DRAWER 7, Y5N ONE ×4 (06:13→20:29)
[2018-06-07] MEDS: DIVALPROEX SODIUM 125 MG SPRINKLE CAPS PO SCH ×3 (06:22→20:33)
[2018-06-07] MEDS: LEVOTHYROXINE NA 50 MCG TABLET (FP) PO SCH (06:22)
[2018-06-07] MEDS: LISINOPRIL 20 MG TABLET (FP) PO SCH (09:22)
[2018-06-07] MEDS: HYDROCHLOROTHIAZIDE 12.5 MG CAPSULE (FP) PO SCH (09:22)
[2018-06-07] MEDS: ASPIRIN 81 MG CHEWABLE TABLETS PO SCH (09:22)
[2018-06-07] MEDS: PATIENT'S OWN MEDICATION (NON-FORMULARY) (Memantine Hcl [Namenda Xr] 0 MG) PO SCH (09:23)
[2018-06-07] MEDS: ARTIFICIAL TEARS (POLYVINYL ALCOHOL) OPTH DROPS OU SCH ×2 (09:23→21:38)
[2018-06-07] MEDS: DOCUSATE NA 100 MG/10 ML UNIT-DOSE CUPS PO SCH ×2 (09:23→21:38)
[2018-06-07] MEDS: ENOXAPARIN NA (PORCINE) 30 MG/0.3 ML DISP.SYRIN SQ SCH (09:24)
[2018-06-07] MEDS: POLYETHYLENE GLYCOL 3350 119 GM BTL PO SCH (09:31)
--- NOTE | 2018-06-07 15:10 | PN ---
Progress Note (short form) - Note Progress Note: she has no change as per nurse she is being fed by NA no distress vs Vital Signs Period Temp Pulse Resp BP Sys/Torres Pulse Ox Last 24 Hr 97.3 F-99.5 F 61-104 16-18 104-158/61-92 98-98 Heent nad neck supple lungs [place] clear heart s1 nad s2 ok abd soft and on tender ext no edema Current Medications Generic Name Dose Route Start Last Admin Trade Name Freq PRN Reason Stop Dose Admin Acetaminophen 500 mg 06/05/18 17:17 Tylenol - PO Q8H PRN PAIN LEVEL 1 - 3 Artificial Tears 1 drop 06/02/18 22:00 06/07/18 09:23 Artificial Tears OU 1 drop BID NABIL Administration Aspirin 81 mg 06/02/18 19:45 06/07/18 09:22 Asa - PO 81 mg DAILY NABIL Administration Atorvastatin Calcium 40 mg 06/02/18 22:00 06/06/18 21:23 Lipitor - PO 40 mg HS NABIL Administration Diphenhydramine HCl 25 mg 06/04/18 16:25 Benadryl - PO DAILY PRN FOR ITCHING Divalproex Sodium 125 mg 06/05/18 20:00 06/07/18 13:44 Depakote Sprinkle Caps - PO 125 mg DAILY@0600,1400,2000 NABIL Administration Docusate Sodium 100 mg 06/06/18 22:00 06/07/18 09:23 Colace Liquid - PO 100 mg BID NABIL Administration Enoxaparin Sodium 30 mg 06/02/18 21:45 06/07/18 09:24 Lovenox - SQ 30 mg DAILY NABIL Administration Hydrochlorothiazide 12.5 mg 06/03/18 10:00 06/07/18 09:22 Hctz - PO 12.5 mg DAILY NABIL Administration Sodium Chloride 1,000 mls @ 75 mls/hr 06/02/18 20:00 06/06/18 21:23 1/2 Normal Saline IV 75 mls/hr ASDIR NABIL Administration Levofloxacin 750 mg in 150 mls @ 100 mls/hr 06/05/18 16:00 06/07/18 09:24 Levaquin 750 Mg Premixed Ivpb - IVPB 100 mls/hr DAILY NABIL Administration Protocol Levothyroxine Sodium 50 mcg 06/02/18 19:45 06/07/18 06:22 Synthroid - PO 50 mcg DAILY@0700 NABIL Administration Lisinopril 20 mg 06/02/18 20:00 06/07/18 09:22 Prinivil PO 20 mg DAILY NABIL Administration Non-Formulary Medication 0 mg 06/04/18 18:00 06/07/18 09:23 Memantine Hcl [Namenda Xr] PO 28 mg DAILY NABIL Administration Polyethylene Glycol 17 gm 06/02/18 19:45 06/07/18 09:31 Miralax (For Daily Use) - PO 17 gm DAILY NABIL Administration Quetiapine Fumarate 12.5 mg 06/05/18 20:00 06/06/18 21:24 Seroquel - PO 12.5 mg DAILY@2000 NABIL Administration ASSESSMENT AND PLAN: This is a 78 year old woman with a history of Parkinson disease, dementia, HTN, hyperlipidemia, UTIs, bradycardia 1. Acute metabolic encephalopathy secondary to E. faecalis UTI - Improved - Continue Levaquin (day 2) 2. Weakness, generalized beter 3. Parkinson disease stable not on meds 4. Dementia - Continue Namenda, Seroquel, Depakote 5. HTN - Continue lisinopil, HCTZ 6. Anemia - repeat labs am 7. Disposition - Continue PT - patient is bed/wheelchair bound at home - Ok for discharge home - daughter says she cannot take her home until she has a yoel lift which she has ordered. Alternatively, while awaiting delivery,
[2018-06-07] MEDS: QUEtiapine FUMARATE 25 MG TABLET (FP) PO SCH (20:33)
[2018-06-07] MEDS: ATORVASTATIN CA 40 MG TABLET (FP) PO SCH (21:37)
[2018-06-07] MEDS: SODIUM CHLORIDE 0.45% 1,000 ML IV SCH (21:38)
--- NOTE | 2018-06-07 21:49 | PN ---
Progress Note (short form) - Note Progress Note: Called by nurse to come see evaluate patient. This evening patient was noted to have a bump on her forehead with minimal abrasion, likely from hitting the railing of the bed. Daughter came in to visit and noted the bump. She asked for an ice pack and was applied. On physical exam, 1in x 1in bump on left forehead with minimal abrasion. continue ice packs apply bacitracin on abrasion will continue to monitor patient
[2018-06-08] MEDS: LEVOTHYROXINE NA 50 MCG TABLET (FP) PO SCH (06:14)
[2018-06-08] MEDS: DIVALPROEX SODIUM 125 MG SPRINKLE CAPS PO SCH ×3 (06:14→20:47)
[2018-06-08 07:55] LABS: BASO % 0.6 % (0-2.0); EOS % 1.7 % (0-4.5); HEMATOCRIT 33.8 % (32.4-45.2); HEMOGLOBIN 10.6 GM/dL (10.7-15.3); LYMPH % 19.4 % (8-40); MCH 28.5 pg (25.7-33.7); MCHC 31.3 g/dl (32.0-36.0); MEAN PLT VOLUME 9.1 fl (7.5-11.1); MONO % 10.5 % (3.8-10.2); NEUT % 67.8 % (42.8-82.8); PLATELET COUNT 250 K/MM3 (134-434); RBC 3.71 M/mm3 (3.60-5.2); RDW 14.5 % (11.6-15.6); WHITE BLOOD COUNT 7.2 K/mm3 (4.0-10.0)
[2018-06-08] MEDS ORDERED: PT OWN MED DRAWER 7, Y5N ONE ×5 (08:55→20:46)
[2018-06-08] MEDS: HYDROCHLOROTHIAZIDE 12.5 MG CAPSULE (FP) PO SCH (10:29)
[2018-06-08] MEDS: DOCUSATE NA 100 MG/10 ML UNIT-DOSE CUPS PO SCH ×2 (10:30→21:32)
[2018-06-08] MEDS: ENOXAPARIN NA (PORCINE) 30 MG/0.3 ML DISP.SYRIN SQ SCH (10:30)
[2018-06-08] MEDS: LISINOPRIL 20 MG TABLET (FP) PO SCH (10:31)
[2018-06-08] MEDS: ASPIRIN 81 MG CHEWABLE TABLETS PO SCH (10:31)
[2018-06-08] MEDS: ARTIFICIAL TEARS (POLYVINYL ALCOHOL) OPTH DROPS OU SCH ×2 (10:31→21:32)
[2018-06-08] MEDS: POLYETHYLENE GLYCOL 3350 119 GM BTL PO SCH (10:31)
[2018-06-08] MEDS: PATIENT'S OWN MEDICATION (NON-FORMULARY) (Memantine Hcl [Namenda Xr] 0 MG) PO SCH (10:33)
--- NOTE | 2018-06-08 10:42 | PN ---
Physical Exam: SUBJECTIVE: Patient seen and examined. Noted to have bruised her forehead likely from the bedrailing yesterday. Was noticed to have increased somnolence and possible increased confusion per nurse. OBJECTIVE: Vital Signs Period Temp Pulse Resp BP Sys/Torres Pulse Ox Last 24 Hr 97.8 F-99.5 F 68-94 16-20 124-146/64-72 98-98 Vital Signs Temp 97.8 F 06/08/18 06:29 Pulse 68 06/08/18 06:29 Resp 20 06/08/18 09:00 BP 144/72 06/08/18 06:29 Pulse Ox 98 06/08/18 09:00 Intake & Output 06/07/18 06/07/18 06/08/18 11:59 23:59 11:59 Intake Total 625 200 950 Balance 625 200 950 Weight 70.307 kg Intake: IV 525 900 1/2 Normal Saline 1,000 525 900 ml @ 75 mls/hr IV ASDIR NABIL Rx#:[id number] Oral 100 200 50 Other: Voiding Method Diaper Diaper Diaper # Unmeasured Voids Void 1 2 1 Bowel Movement Yes Yes # Bowel Movements 1 1 GENERAL: The patient is drowsy but arousable, in no acute distress. HEAD: Healing bruise over forehead EYES: PERRL, extraocular movements intact LUNGS: Breath sounds equal, clear to auscultation bilaterally, no wheezes, no crackles HEART: Regular rate and rhythm, S1, S2 ABDOMEN: Soft, nontender, nondistended, normoactive bowel sounds EXTREMITIES: 2+ pulses, warm, well-perfused, no edema. NEUROLOGICAL: Difficult to assess. No facial symmetry. No obvious lateralizing signs. gait not observed. Laboratory Results - last 24 hr 06/08/18 06:30 WBC 7.2 RBC 3.71 Hgb 10.6 L Hct 33.8 MCV 91.0 MCH 28.5 MCHC 31.3 L RDW 14.5 Plt Count 250 D MPV 9.1 Absolute Neuts (auto) 4.9 Neutrophils % 67.8 Lymphocytes % 19.4 Monocytes % 10.5 H Eosinophils % 1.7 Basophils % 0.6 Nucleated RBC % 0 Active Medications Generic Name Dose Route Start Last Admin Trade Name Freq PRN Reason Stop Dose Admin Acetaminophen 500 mg 06/05/18 17:17 Tylenol - PO Q8H PRN PAIN LEVEL 1 - 3 Artificial Tears 1 drop 06/02/18 22:00 06/08/18 10:31 Artificial Tears OU 1 drop BID NABIL Administration Aspirin 81 mg 06/02/18 19:45 06/08/18 10:31 Asa - PO 81 mg DAILY NABIL Administration Atorvastatin Calcium 40 mg 06/02/18 22:00 06/07/18 21:37 Lipitor - PO 40 mg HS NABIL Administration Diphenhydramine HCl 25 mg 06/04/18 16:25 Benadryl - PO DAILY PRN FOR ITCHING Divalproex Sodium 125 mg 06/05/18 20:00 06/08/18 06:14 Depakote Sprinkle Caps - PO 125 mg DAILY@0600,1400,2000 NABIL Administration Docusate Sodium 100 mg 06/06/18 22:00 06/08/18 10:30 Colace Liquid - PO 100 mg BID NABIL Administration Enoxaparin Sodium 30 mg 06/02/18 21:45 06/08/18 10:30 Lovenox - SQ 30 mg DAILY NABIL Administration Hydrochlorothiazide 12.5 mg 06/03/18 10:00 06/08/18 10:29 Hctz - PO 12.5 mg DAILY NABIL Administration Sodium Chloride 1,000 mls @ 75 mls/hr 06/02/18 20:00 06/07/18 21:38 1/2 Normal Saline IV 75 mls/hr ASDIR NABIL Administration Levofloxacin 750 mg in 150 mls @ 100 mls/hr 06/05/18 16:00 06/08/18 09:29 Levaquin 750 Mg Premixed Ivpb - IVPB 100 mls/hr DAILY NABIL Administration Protocol Levothyroxine Sodium 50 mcg 06/02/18 19:45 06/08/18 06:14 Synthroid - PO 50 mcg DAILY@0700 NABIL Administration Lisinopril 20 mg 06/02/18 20:00 06/08/18 10:31 Prinivil PO 20 mg DAILY NABIL Administration Non-Formulary Medication 0 mg 06/04/18 18:00 06/08/18 10:33 Memantine Hcl [Namenda Xr] PO 28 mg DAILY NABIL Administration Polyethylene Glycol 17 gm 06/02/18 19:45 06/08/18 10:31 Miralax (For Daily Use) - PO 17 gm DAILY NABIL Administration Quetiapine Fumarate 12.5 mg 06/05/18 20:00 06/07/18 20:33 Seroquel - PO 12.5 mg DAILY@1999 NABIL Administration ASSESSMENT/PLAN: 78 yo F with PMHx Alzheimer's Dementia, Parkinson's, bradycardia, HLD, HTN, previous UTI, currently wheelchair bound admitted with change in mental status and found to have UTI. Acute metabolic Encephalopathy - With recent likely blunt trauma to forehead, and probable increased somnolence / confusion -Will do CT head stat R/O ICH, no obvious lateralizing signs noted on exam -Initially altered likely in setting of cute metabolic encephalopathy secondary to UTI , had improed and was pending placement -CT head negative initially, repeat also negative, now pending another CT for new forehead bruise -Neurology consult appreciated -Physical Therapy Evaluation Left leg pain -Knee X-ray with arthritic changes without any signs of fracture -Left leg duplex without DVT -Left Hip X-ray without fracture -Left ankle and foot Xray UTI -UA with 2+ LE, 117 WBCs -On Levaquin - day 4 (Abx day 7 today) -E. fecalis Alzheimer's Dimentia/Parkinson's -Likely progressing but unlikely the cause of her acute status -Continue Namenda 28 mg PO Daily -Depakote 125 mg PO TID -Seroquel 12.5 mg PO HS HLD -Lipitor 40 mg PO HS Hypothyroid -Synthroid 50 mcg PO AM HTN -HCTZ 12.5 mg PO Daily -Lisinopril 20 mg PO Daily Wheelchair bound -PT evaluation, likely complication of her Parkinson's -PT did not recommend rehab placement as it would likely not be beneficial for pt ambulatory status DVT Prophylaxis -Lovenox 30 mg SQ Daily FEN -No Fluids -Electrolytes: No electrolyte abnormalities, BMP in AM -Nutrition: Regular Diet with ensure, Magic Cup with dinner Disposition Telemetry Visit type - Emergency Visit Emergency Visit: Yes ED Registration Date: 06/02/18 Care time: The patient presented to the Emergency Department on the above date and was hospitalized for further evaluation of their emergent condition. - New Patient This patient is new to me today: No - Critical Care Critical Care patient: No - Discharge Referral Referred to [facility] Med [facility] No
--- NOTE | 2018-06-08 11:11 | PN ---
Teaching Attending Note Name of Resident: Maricruz Romano ATTENDING PHYSICIAN STATEMENT I saw and evaluated the patient. I reviewed the resident's note and discussed the case with the resident. I agree with the resident's findings and plan as documented. SUBJECTIVE:she has noticed a bump in her forehead by nurse last night, this am nurse noted a slight lethargy no fever or chill ros neg OBJECTIVE: Vital Signs Period Temp Pulse Resp BP Sys/Torres Pulse Ox Last 24 Hr 97.8 F-99.5 F 68-94 16-20 124-146/64-72 98-98 Heent she has one inch skin hematoma in her forehead neck supple lungs clear heart no change neuro I dont see any change from yesterday Laboratory Results - last 24 hr 06/08/18 06:30 WBC 7.2 RBC 3.71 Hgb 10.6 L Hct 33.8 MCV 91.0 MCH 28.5 MCHC 31.3 L RDW 14.5 Plt Count 250 D MPV 9.1 Absolute Neuts (auto) 4.9 Neutrophils % 67.8 Lymphocytes % 19.4 Monocytes % 10.5 H Eosinophils % 1.7 Basophils % 0.6 Nucleated RBC % 0 Current Medications Acetaminophen (Tylenol -) 500 mg PO Q8H PRN PRN Reason: PAIN LEVEL 1 - 3 Artificial Tears (Artificial Tears) 1 drop OU BID [facility] Last Admin: 06/08/18 10:31 Dose: 1 drop Aspirin (Asa -) 81 mg PO DAILY [facility] Last Admin: 06/08/18 10:31 Dose: 81 mg Atorvastatin Calcium (Lipitor -) 40 mg PO HS [facility] Last Admin: 06/07/18 21:37 Dose: 40 mg Diphenhydramine HCl (Benadryl -) 25 mg PO DAILY PRN PRN Reason: FOR ITCHING Divalproex Sodium (Depakote Sprinkle Caps -) 125 mg PO DAILY@0600,1400,2000 [facility] Last Admin: 06/08/18 06:14 Dose: 125 mg Docusate Sodium (Colace Liquid -) 100 mg PO BID [facility] Last Admin: 06/08/18 10:30 Dose: 100 mg Enoxaparin Sodium (Lovenox -) 30 mg SQ DAILY [facility] Last Admin: 06/08/18 10:30 Dose: 30 mg Hydrochlorothiazide (Hctz -) 12.5 mg PO DAILY [facility] Last Admin: 06/08/18 10:29 Dose: 12.5 mg Sodium Chloride (1/2 Normal Saline) 1,000 mls @ 75 mls/hr IV ASDIR [facility] Last Admin: 06/07/18 21:38 Dose: 75 mls/hr Levofloxacin (Levaquin 750 Mg Premixed Ivpb -) 750 mg in 150 mls @ 100 mls/hr IVPB DAILY [facility]; Protocol Last Admin: 06/08/18 09:29 Dose: 100 mls/hr Levothyroxine Sodium (Synthroid -) 50 mcg PO DAILY@0700 [facility] Last Admin: 06/08/18 06:14 Dose: 50 mcg Lisinopril (Prinivil) 20 mg PO DAILY [facility] Last Admin: 06/08/18 10:31 Dose: 20 mg Non-Formulary Medication (Memantine Hcl [Namenda Xr]) 0 mg PO DAILY [facility] Last Admin: 06/08/18 10:33 Dose: 28 mg Polyethylene Glycol (Miralax (For Daily Use) -) 17 gm PO DAILY [facility] Last Admin: 06/08/18 10:31 Dose: 17 gm Quetiapine Fumarate (Seroquel -) 12.5 mg PO DAILY@2000 [facility] Last Admin: 06/07/18 20:33 Dose: 12.5 mg ASSESSMENT AND PLAN: 1. Acute metabolic encephalopathy secondary to E. faecalis UTI - Improved - Continue Levaquin 2. Weakness, generalized beter 3. Parkinson disease stable not on meds 4. Dementia - Continue Namenda, Seroquel, Depakote 5. HTN - Continue lisinopil, HCTZ 6- Bump on forehead and possible change in mental status use side rails ordered ct head and will f/u [address] head is normal
[2018-06-08] MEDS: QUEtiapine FUMARATE 25 MG TABLET (FP) PO SCH (20:44)
[2018-06-08] MEDS: ATORVASTATIN CA 40 MG TABLET (FP) PO SCH (21:32)
[2018-06-09] MEDS: DIVALPROEX SODIUM 125 MG SPRINKLE CAPS PO SCH ×3 (06:12→20:49)
[2018-06-09] MEDS: LEVOTHYROXINE NA 50 MCG TABLET (FP) PO SCH (06:12)
[2018-06-09 06:33] LABS: BASO % 0.5 % (0-2.0); EOS % 0.9 % (0-4.5); HEMATOCRIT 32.7 % (32.4-45.2); HEMOGLOBIN 10.3 GM/dL (10.7-15.3); LYMPH % 12.9 % (8-40); MCH 28.7 pg (25.7-33.7); MCHC 31.5 g/dl (32.0-36.0); MEAN CELL VOLUME 90.9 fl (80-96); MEAN PLT VOLUME 9.1 fl (7.5-11.1); MONO % 9.5 % (3.8-10.2); NEUT % 76.2 % (42.8-82.8); PLATELET COUNT 262 K/MM3 (134-434); RDW 14.5 % (11.6-15.6); WHITE BLOOD COUNT 8.4 K/mm3 (4.0-10.0)
[2018-06-09 06:42] LABS: INR 1.2 (0.83-1.09); PROTHROMBIN TIME (PATIENT) 14.2 SEC (9.7-13.0)
[2018-06-09] MEDS ORDERED: PT OWN MED DRAWER 7, Y5N ONE ×4 (06:52→20:48)
[2018-06-09 06:58] LABS: ALBUMIN 2.6 g/dl (3.4-5.0); ALK PHOS 109 U/L (45-117); ANION GAP 7 MMOL/L (8-16); BILIRUBIN,TOTAL 0.3 mg/dL (0.2-1); BLOOD UREA NITROGEN 22 mg/dL (7-18); CALCIUM 8.9 mg/dL (8.5-10.1); CHLORIDE 105 mmol/L (98-107); CO2 26 mmol/L (21-32); CREATININE 0.8 mg/dL (0.55-1.3); GLUCOSE,RANDOM 111 mg/dL (74-106); MAGNESIUM 2.2 mg/dL (1.8-2.4); PHOSPHOROUS 3.8 mg/dL (2.5-4.9); POTASSIUM 4.1 mmol/L (3.5-5.1); SGOT/AST 21 U/L (15-37); SGPT/ALT 17 U/L (13-61); SODIUM 139 mmol/L (136-145); TOT PROT 6.8 g/dl (6.4-8.2)
[2018-06-09] MEDS: DOCUSATE NA 100 MG/10 ML UNIT-DOSE CUPS PO SCH (10:59)
[2018-06-09] MEDS: ARTIFICIAL TEARS (POLYVINYL ALCOHOL) OPTH DROPS OU SCH ×2 (10:59→21:02)
[2018-06-09] MEDS: PATIENT'S OWN MEDICATION (NON-FORMULARY) (Memantine Hcl [Namenda Xr] 0 MG) PO SCH (11:00)
[2018-06-09] MEDS: POLYETHYLENE GLYCOL 3350 119 GM BTL PO SCH (11:00)
[2018-06-09] MEDS: ASPIRIN 81 MG CHEWABLE TABLETS PO SCH (11:00)
[2018-06-09] MEDS: ENOXAPARIN NA (PORCINE) 30 MG/0.3 ML DISP.SYRIN SQ SCH (11:00)
[2018-06-09] MEDS: LISINOPRIL 20 MG TABLET (FP) PO SCH (11:00)
[2018-06-09] MEDS: HYDROCHLOROTHIAZIDE 12.5 MG CAPSULE (FP) PO SCH (11:00)
--- NOTE | 2018-06-09 11:30 | PN ---
Progress Note, NIGHT ASSISTANT - Note Progress Note: Selected Entries 06/07/18 06/07/18 06/07/18 08:50 12:20 13:20 Breakfast 50% Lunch 75% 75% Supper Temperature 06/07/18 06/08/18 06/08/18 18:00 01:41 06:29 Breakfast Lunch Supper 75% Temperature 98.2 F 97.8 F 06/08/18 06/08/18 06/08/18 08:00 10:00 10:30 Breakfast 25% Lunch Supper Temperature 97.8 F 97.7 F 06/08/18 06/08/18 06/08/18 13:25 18:00 21:00 Breakfast Lunch 50% Supper 25% 50% Temperature 97.5 F L 98.1 F 97.8 F 06/09/18 06/09/18 02:01 07:19 Breakfast Lunch Supper Temperature 99.8 F H 99.0 F Laboratory Tests 06/09/18 05:00 WBC 8.4 Tolerating reg diet/thin liquids. Lethargy noted yesterday. CT head (-). Pt frequently lethargic in am. She is tlerating reg diet thin liquids well. However, she did cough on liquid colace this am. This likely occurred sec to bad taste/texture, with spillage over base of tongue before swallow onset. Consider mixing Colace inapplesauce vs medication substitution.
[2018-06-09 12:13] VITALS: BMI 24.3
--- NOTE | 2018-06-09 13:02 | PN ---
Teaching Attending Note Name of Resident: Reggie Najera ATTENDING PHYSICIAN STATEMENT I saw and evaluated the patient. I reviewed the resident's note and discussed the case with the resident. I agree with the resident's findings and plan as documented. SUBJECTIVE: No complaints. Non-verbal. OBJECTIVE: Appears Comfortable. Hemodynamically Stable. Lethargic but rousable. Last Vital Signs Temp Pulse Resp BP Pulse Ox 98.4 F 77 18 130/83 98 06/09/18 11:00 06/09/18 11:00 06/09/18 11:00 06/09/18 11:00 06/08/18 21:00 HEENT - small hemtoma R frontal region of forehead, non-tender. Heart - S1, S2, RRR Lungs - clear to auscultation Abdomen - Soft, non-tender. Bowel Sounds normal. Extremities - no edema. No calf tenderness. Laboratory Results - last 24 hr 06/09/18 06/09/18 06/09/18 05:00 05:00 05:00 WBC 8.4 RBC 3.60 Hgb 10.3 L Hct 32.7 MCV 90.9 MCH 28.7 MCHC 31.5 L RDW 14.5 Plt Count 262 MPV 9.1 Absolute Neuts (auto) 6.4 Neutrophils % 76.2 Lymphocytes % 12.9 D Monocytes % 9.5 Eosinophils % 0.9 Basophils % 0.5 Nucleated RBC % 0 PT with INR 14.20 H INR 1.20 H Sodium 139 Potassium 4.1 Chloride 105 Carbon Dioxide 26 Anion Gap 7 L BUN 22 H Creatinine 0.8 Creat Clearance w eGFR > 60 Random Glucose 111 H Calcium 8.9 Phosphorus 3.8 Magnesium 2.2 Total Bilirubin 0.3 AST 21 ALT 17 Alkaline Phosphatase 109 Total Protein 6.8 Albumin 2.6 L Current Medications Generic Name Dose Route Start Last Admin Trade Name Freq PRN Reason Stop Dose Admin Acetaminophen 500 mg 06/05/18 17:17 Tylenol - PO Q8H PRN PAIN LEVEL 1 - 3 Artificial Tears 1 drop 06/02/18 22:00 06/09/18 10:59 Artificial Tears OU 1 drop BID NABIL Administration Aspirin 81 mg 06/02/18 19:45 06/09/18 11:00 Asa - PO 81 mg DAILY NABIL Administration Atorvastatin Calcium 40 mg 06/02/18 22:00 06/08/18 21:32 Lipitor - PO 40 mg HS NABIL Administration Diphenhydramine HCl 25 mg 06/04/18 16:25 Benadryl - PO DAILY PRN FOR ITCHING Divalproex Sodium 125 mg 06/05/18 20:00 06/09/18 06:12 Depakote Sprinkle Caps - PO 125 mg DAILY@0600,1400,2000 NABIL Administration Docusate Sodium 100 mg 06/06/18 22:00 06/09/18 10:59 Colace Liquid - PO 100 mg BID NABIL Administration Enoxaparin Sodium 30 mg 06/02/18 21:45 06/09/18 11:00 Lovenox - SQ 30 mg DAILY NABIL Administration Hydrochlorothiazide 12.5 mg 06/03/18 10:00 06/09/18 11:00 Hctz - PO 12.5 mg DAILY NABIL Administration Levofloxacin 750 mg in 150 mls @ 100 mls/hr 06/05/18 16:00 06/09/18 10:59 Levaquin 750 Mg Premixed Ivpb - IVPB 100 mls/hr DAILY NABIL Administration Protocol Levothyroxine Sodium 50 mcg 06/02/18 19:45 06/09/18 06:12 Synthroid - PO 50 mcg DAILY@0700 NABIL Administration Lisinopril 20 mg 06/02/18 20:00 06/09/18 11:00 Prinivil PO 20 mg DAILY NABIL Administration Non-Formulary Medication 0 mg 06/04/18 18:00 06/09/18 11:00 Memantine Hcl [Namenda Xr] PO 28 mg DAILY NABIL Administration Polyethylene Glycol 17 gm 06/02/18 19:45 06/09/18 11:00 Miralax (For Daily Use) - PO 17 gm DAILY NABIL Administration Quetiapine Fumarate 12.5 mg 06/05/18 20:00 06/08/18 20:44 Seroquel - PO 12.5 mg DAILY@1999 NABIL Administration ASSESSMENT AND PLAN: 78 year old female bed/wheelchair-bound with history of Parkinson's Disease, Advanced Dementia, HTN, Hyperlipidemia, History of recurrent UTIs, Bradycardia who presented to the ED with altered mental status. 1. Acute metabolic encephalopathy secondary to UTI UCx pos for enterococcus. Improved after course of Levofloxacin - Day 5 today. 2. Parkinson's Disease with generalized weakness and Dementia - Not on PD modifying drugs. 3. Dementia - Continue Namenda, Seroquel, Depakote. No behavioral disturbance. 4. HTN - Continue lisinopil, HCTZ 5. Hyperlipidemia - Continue Lipitor 6. Hypothyroidism - Continue Synthroid. 7. Ambulatory Dysfunction - no report of falls. Hematoma R forehead - CT Head: no acute findings. Left leg/foot pain with ecchymosis of left foot - X-rays of left hip and left knee show mild degenerative disease - X-rays of left ankle/foot show no fracture 8. Dispo - awaiting Emilia lift at home. Daughter is caregiver. Medically stable for discharge once home equipment and services are in place. DVT Px - Lovenox.
--- NOTE | 2018-06-09 17:02 | PN ---
Physical Exam: SUBJECTIVE: Patient seen and examined this morning. Appears at her baseline. OBJECTIVE: Vital Signs Period Temp Pulse Resp BP Sys/Torres Pulse Ox Last 24 Hr 97.5 F-99.8 F 77-102 14-18 102-160/51-100 98-98 GENERAL: alert though nonverbal, no acute distress HEAD: Normocephalic, atraumatic. EYES: PERRL, no scleral icterus EARS, NOSE, THROAT: Dry mucus membranes NECK: supple without lymphadenopathy LUNGS: CTA b/l, no crackles or wheezes HEART: Regular rate and rhythm, normal S1 and S2 without murmur ABDOMEN: Soft, mild grimace on palpation, normoactive bowel sounds MUSCULOSKELETAL: ROM in tact EXTREMITIES: 2+ pulses, warm, well-perfused. No peripheral edema. minimal erythema on anterior portion of ankle NEUROLOGICAL: Cranial nerves difficult to assess but grossly in tact. Nonverbal SKIN: Warm, dry, no rashes or lesions noted Laboratory Results - last 24 hr 06/09/18 06/09/18 06/09/18 05:00 05:00 05:00 WBC 8.4 RBC 3.60 Hgb 10.3 L Hct 32.7 MCV 90.9 MCH 28.7 MCHC 31.5 L RDW 14.5 Plt Count 262 MPV 9.1 Absolute Neuts (auto) 6.4 Neutrophils % 76.2 Lymphocytes % 12.9 D Monocytes % 9.5 Eosinophils % 0.9 Basophils % 0.5 Nucleated RBC % 0 PT with INR 14.20 H INR 1.20 H Sodium 139 Potassium 4.1 Chloride 105 Carbon Dioxide 26 Anion Gap 7 L BUN 22 H Creatinine 0.8 Creat Clearance w eGFR > 60 Random Glucose 111 H Calcium 8.9 Phosphorus 3.8 Magnesium 2.2 Total Bilirubin 0.3 AST 21 ALT 17 Alkaline Phosphatase 109 Total Protein 6.8 Albumin 2.6 L Active Medications Generic Name Dose Route Start Last Admin Trade Name Freq PRN Reason Stop Dose Admin Acetaminophen 500 mg 06/05/18 17:17 Tylenol - PO Q8H PRN PAIN LEVEL 1 - 3 Artificial Tears 1 drop 06/02/18 22:00 06/09/18 10:59 Artificial Tears OU 1 drop BID NABIL Administration Aspirin 81 mg 06/02/18 19:45 06/09/18 11:00 Asa - PO 81 mg DAILY NABIL Administration Atorvastatin Calcium 40 mg 06/02/18 22:00 06/08/18 21:32 Lipitor - PO 40 mg HS NABIL Administration Diphenhydramine HCl 25 mg 06/04/18 16:25 Benadryl - PO DAILY PRN FOR ITCHING Divalproex Sodium 125 mg 06/05/18 20:00 06/09/18 14:54 Depakote Sprinkle Caps - PO 125 mg DAILY@0600,1400,1999 NABIL Administration Enoxaparin Sodium 30 mg 06/02/18 21:45 06/09/18 11:00 Lovenox - SQ 30 mg DAILY NABIL Administration Hydrochlorothiazide 12.5 mg 06/03/18 10:00 06/09/18 11:00 Hctz - PO 12.5 mg DAILY NABIL Administration Levofloxacin 750 mg in 150 mls @ 100 mls/hr 06/05/18 16:00 06/09/18 10:59 Levaquin 750 Mg Premixed Ivpb - IVPB 100 mls/hr DAILY NABIL Administration Protocol Levothyroxine Sodium 50 mcg 06/02/18 19:45 06/09/18 06:12 Synthroid - PO 50 mcg DAILY@0700 NABIL Administration Lisinopril 20 mg 06/02/18 20:00 06/09/18 11:00 Prinivil PO 20 mg DAILY NABIL Administration Non-Formulary Medication 0 mg 06/04/18 18:00 06/09/18 11:00 Memantine Hcl [Namenda Xr] PO 28 mg DAILY NABIL Administration Polyethylene Glycol 17 gm 06/02/18 19:45 06/09/18 11:00 Miralax (For Daily Use) - PO 17 gm DAILY NABIL Administration Quetiapine Fumarate 12.5 mg 06/05/18 20:00 06/08/18 20:44 Seroquel - PO 12.5 mg DAILY@1999 [facility] Administration Senna 2 tab 06/09/18 22:00 Senna - PO HS [facility] ASSESSMENT/PLAN: 78 yo F with PMHx Alzheimer's Dementia, Parkinson's, bradycardia, HLD, HTN, previous UTI, currently wheelchair bound admitted with change in mental status and found to have UTI. Acute metabolic Encephalopathy -Likely metabolic secondary to UTI as mentioned below -CT head negative initially -Repeat CT to ensure no acute CVA unchanged -Neurology consult appreciated -Physical Therapy Evaluation Left leg pain, improved -Knee X-ray with arthritic changes without any signs of fracture -Left leg duplex without DVT -Left Hip X-ray without fracture -Left ankle and foot Xray pending, daughter states pt foot may have gotten trapped while rolling wheelchair UTI -UA with 2+ LE, 117 WBCs -Rocephin switched to Levaquin which can be converted to oral for total 7 days upon discharge (Abx day 5 today) -Pt clinically improved from yesterday as per the daughter -/ NS @ 75 cc/hr -E. fecalis fairly sensitive -Stable for d/c to home Alzheimer's Dimentia/Parkinson's -Likely progressing but unlikely the cause of her acute status -Continue Namenda 28 mg PO Daily -Depakote 125 mg PO TID -Seroquel 12.5 mg PO HS HLD -Lipitor 40 mg PO HS Hypothyroid -Synthroid 50 mcg PO AM HTN -HCTZ 12.5 mg PO Daily -Lisinopril 20 mg PO Daily Wheelchair bound -PT evaluation, likely complication of her Parkinson's -PT did not recommend rehab placement as it would likely not be beneficial for pt ambulatory status DVT Prophylaxis -Lovenox 30 mg SQ Daily FEN -Fluids: 05/28 NS @ 75 cc/hr -Electrolytes: No electrolyte abnormalities, BMP in AM -Nutrition: Regular Diet with 2 ensures, Magic Cup with dinner Disposition Telemetry, DC pending yoel lift delivery to home Visit type - Emergency Visit Emergency Visit: Yes ED Registration Date: 06/02/18 Care time: The patient presented to the Emergency Department on the above date and was hospitalized for further evaluation of their emergent condition. - New Patient This patient is new to me today: No - Critical Care Critical Care patient: No
[2018-06-09] MEDS: QUEtiapine FUMARATE 25 MG TABLET (FP) PO SCH (20:49)
[2018-06-09] MEDS: ATORVASTATIN CA 40 MG TABLET (FP) PO SCH (21:01)
[2018-06-09] MEDS: SENNOSIDES 8.6MG TABLET (FP) PO SCH (21:01)
[2018-06-10] MEDS ORDERED: PT OWN MED DRAWER 7, Y5N ONE ×4 (05:43→20:02)
[2018-06-10] MEDS: DIVALPROEX SODIUM 125 MG SPRINKLE CAPS PO SCH ×3 (05:44→20:08)
[2018-06-10] MEDS: LEVOTHYROXINE NA 50 MCG TABLET (FP) PO SCH (06:04)
[2018-06-10] MEDS: ARTIFICIAL TEARS (POLYVINYL ALCOHOL) OPTH DROPS OU SCH ×2 (10:36→21:05)
[2018-06-10] MEDS: PATIENT'S OWN MEDICATION (NON-FORMULARY) (Memantine Hcl [Namenda Xr] 0 MG) PO SCH (10:36)
[2018-06-10] MEDS: HYDROCHLOROTHIAZIDE 12.5 MG CAPSULE (FP) PO SCH (10:38)
[2018-06-10] MEDS: ENOXAPARIN NA (PORCINE) 30 MG/0.3 ML DISP.SYRIN SQ SCH (10:38)
[2018-06-10] MEDS: LISINOPRIL 20 MG TABLET (FP) PO SCH (10:40)
[2018-06-10] MEDS: ASPIRIN 81 MG CHEWABLE TABLETS PO SCH (10:40)
[2018-06-10] MEDS: POLYETHYLENE GLYCOL 3350 119 GM BTL PO SCH (10:40)
--- NOTE | 2018-06-10 11:32 | PN ---
Teaching Attending Note Name of Resident: Reggie Najera ATTENDING PHYSICIAN STATEMENT I saw and evaluated the patient. I reviewed the resident's note and discussed the case with the resident. I agree with the resident's findings and plan as documented. SUBJECTIVE: Non-verbal. No complaints OBJECTIVE: Appears Comfortable. Hemodynamically Stable. Lethargic but rousable. Last Vital Signs Temp Pulse Resp BP Pulse Ox 98.9 F 99 H 18 123/57 L 99 06/10/18 10:00 06/10/18 10:00 06/10/18 10:00 06/10/18 10:00 06/09/18 21:00 HEENT - small hemtoma R frontal region of forehead, non-tender. Heart - S1, S2, RRR Lungs - clear to auscultation Abdomen - Soft, non-tender. Bowel Sounds normal. Extremities - no edema. No calf tenderness. Current Medications Generic Name Dose Route Start Last Admin Trade Name Freq PRN Reason Stop Dose Admin Acetaminophen 500 mg 06/05/18 17:17 06/09/18 20:50 Tylenol - PO 500 mg Q8H PRN Administration PAIN LEVEL 1 - 3 Artificial Tears 1 drop 06/02/18 22:00 06/10/18 10:36 Artificial Tears OU 1 drop BID NABIL Administration Aspirin 81 mg 06/02/18 19:45 06/10/18 10:40 Asa - PO 81 mg DAILY NABIL Administration Atorvastatin Calcium 40 mg 06/02/18 22:00 06/09/18 21:01 Lipitor - PO 40 mg HS NABIL Administration Diphenhydramine HCl 25 mg 06/04/18 16:25 Benadryl - PO DAILY PRN FOR ITCHING Divalproex Sodium 125 mg 06/05/18 20:00 06/10/18 05:44 Depakote Sprinkle Caps - PO 125 mg DAILY@0600,1400,2000 [facility] Administration Enoxaparin Sodium 30 mg 06/02/18 21:45 06/10/18 10:38 Lovenox - SQ 30 mg DAILY NAB[facility] Administration Hydrochlorothiazide 12.5 mg 06/03/18 10:00 06/10/18 10:38 Hctz - PO 12.5 mg DAILY NABIL Administration Levofloxacin 750 mg in 150 mls @ 100 mls/hr 06/05/18 16:00 06/10/18 10:36 Levaquin 750 Mg Premixed Ivpb - IVPB 100 mls/hr DAILY NABIL Administration Protocol Levothyroxine Sodium 50 mcg 06/02/18 19:45 06/10/18 06:04 Synthroid - PO 50 mcg DAILY@0700 [facility] Administration Lisinopril 20 mg 06/02/18 20:00 06/10/18 10:40 Prinivil PO 20 mg DAILY NABIL Administration Non-Formulary Medication 0 mg 06/04/18 18:00 06/10/18 10:36 Memantine Hcl [Namenda Xr] PO 28 mg DAILY [facility] Administration Polyethylene Glycol 17 gm 06/02/18 19:45 06/10/18 10:40 Miralax (For Daily Use) - PO 17 gm DAILY [facility] Administration Quetiapine Fumarate 12.5 mg 06/05/18 20:00 06/09/18 20:49 Seroquel - PO 12.5 mg DAILY@2000 [facility] Administration Senna 2 tab 06/09/18 22:00 06/09/18 21:01 Senna - PO 2 tab HS NABIL Administration ASSESSMENT AND PLAN: 78 year old female bed/wheelchair-bound with history of Parkinson's Disease, Advanced Dementia, HTN, HLD, History of recurrent UTIs, Bradycardia who presented to the ED with altered mental status. 1. Acute metabolic encephalopathy secondary to UTI UCx pos for enterococcus. Improved after course of Levofloxacin - Day 6 today. For 1 additional day to complete 7 day course. 2. Parkinson's Disease with generalized weakness and Dementia - Not on PD modifying drugs. 3. Dementia - Continue Namenda, Seroquel, Depakote. No behavioral disturbance. 4. HTN - Continue lisinopil, HCTZ 5. Hyperlipidemia - Continue Lipitor 6. Hypothyroidism - Continue Synthroid. 7. Ambulatory Dysfunction - no report of falls. Hematoma R forehead - CT Head: no acute findings. Left leg/foot pain with ecchymosis of left foot - X-rays of left hip and left knee show mild degenerative disease - X-rays of left ankle/foot show no fracture Unable to participate with PT. 8. Dispo - awaiting Emilia lift at home. Daughter is caregiver. Medically stable for discharge once home equipment and services are in place. Palliative Care consulted for goals of care.
--- NOTE | 2018-06-10 13:15 | PN ---
Progress Note, DIRECTOR OF PROMOTIONS - Note Progress Note: Selected Entries 06/10/18 06/10/18 06/10/18 02:00 06:00 10:00 Breakfast Temperature 98.3 F 98.4 F 98.9 F 06/10/18 11:03 Breakfast 50% Temperature Laboratory Tests 06/09/18 05:00 WBC 8.4 CXR (-).Slow but fairly efficient PO intake.
--- NOTE | 2018-06-10 17:15 | PN ---
Physical Exam: SUBJECTIVE: Patient seen and examined this AM. She is doing at her baseline and seems to be doing well. OBJECTIVE: Vital Signs Period Temp Pulse Resp BP Sys/Torres Pulse Ox Last 24 Hr 97.4 F-98.9 F 69-99 16-20 105-162/43-96 99-99 GENERAL: alert though nonverbal, no acute distress HEAD: Normocephalic, atraumatic. EYES: PERRL, no scleral icterus EARS, NOSE, THROAT: Dry mucus membranes NECK: supple without lymphadenopathy LUNGS: CTA b/l, no crackles or wheezes HEART: Regular rate and rhythm, normal S1 and S2 without murmur ABDOMEN: Soft, nontender to palpation, normoactive bowel sounds MUSCULOSKELETAL: ROM in tact EXTREMITIES: 2+ pulses, warm, well-perfused. No peripheral edema. minimal erythema on anterior portion of ankle NEUROLOGICAL: Cranial nerves difficult to assess but grossly in tact. Nonverbal SKIN: Warm, dry, no rashes or lesions noted Active Medications Generic Name Dose Route Start Last Admin Trade Name Freq PRN Reason Stop Dose Admin Acetaminophen 500 mg 06/05/18 17:17 06/09/18 20:50 Tylenol - PO 500 mg Q8H PRN Administration PAIN LEVEL 1 - 3 Artificial Tears 1 drop 06/02/18 22:00 06/10/18 10:36 Artificial Tears OU 1 drop BID NABIL Administration Aspirin 81 mg 06/02/18 19:45 06/10/18 10:40 Asa - PO 81 mg DAILY NABIL Administration Atorvastatin Calcium 40 mg 06/02/18 22:00 06/09/18 21:01 Lipitor - PO 40 mg HS NABIL Administration Diphenhydramine HCl 25 mg 06/04/18 16:25 Benadryl - PO DAILY PRN FOR ITCHING Divalproex Sodium 125 mg 06/05/18 20:00 06/10/18 14:58 Depakote Sprinkle Caps - PO 125 mg DAILY@0600,1400,2000 NABIL Administration Enoxaparin Sodium 30 mg 06/02/18 21:45 06/10/18 10:38 Lovenox - SQ 30 mg DAILY NABIL Administration Hydrochlorothiazide 12.5 mg 06/03/18 10:00 06/10/18 10:38 Hctz - PO 12.5 mg DAILY NABIL Administration Levofloxacin 750 mg in 150 mls @ 100 mls/hr 06/05/18 16:00 06/10/18 10:36 Levaquin 750 Mg Premixed Ivpb - IVPB 100 mls/hr DAILY NABIL Administration Protocol Levothyroxine Sodium 50 mcg 06/02/18 19:45 06/10/18 06:04 Synthroid - PO 50 mcg DAILY@0700 NABIL Administration Lisinopril 20 mg 06/02/18 20:00 06/10/18 10:40 Prinivil PO 20 mg DAILY NABIL Administration Non-Formulary Medication 0 mg 06/04/18 18:00 06/10/18 10:36 Memantine Hcl [Namenda Xr] PO 28 mg DAILY NABIL Administration Polyethylene Glycol 17 gm 06/02/18 19:45 06/10/18 10:40 Miralax (For Daily Use) - PO 17 gm DAILY NABIL Administration Quetiapine Fumarate 12.5 mg 06/05/18 20:00 06/09/18 20:49 Seroquel - PO 12.5 mg DAILY@2000 NABIL Administration Senna 2 tab 06/09/18 22:00 06/09/18 21:01 Senna - PO 2 tab HS NABIL Administration ASSESSMENT/PLAN: 78 yo F with PMHx Alzheimer's Dementia, Parkinson's, bradycardia, HLD, HTN, previous UTI, currently wheelchair bound admitted with change in mental status and found to have UTI. Acute metabolic Encephalopathy -Likely metabolic secondary to UTI as mentioned below -CT head negative initially -Repeat CT to ensure no acute CVA unchanged -Neurology consult appreciated -Physical Therapy Evaluation Left leg pain, improved -Knee X-ray with arthritic changes without any signs of fracture -Left leg duplex without DVT -Left Hip X-ray without fracture -Left ankle and foot Xray negative for fracture UTI -UA with 2+ LE, 117 WBCs -Abx course completed -E. fecalis fairly sensitive -Stable for d/c to home Alzheimer's Dimentia/Parkinson's -Likely progressing but unlikely the cause of her acute status -Continue Namenda 28 mg PO Daily -Depakote 125 mg PO TID -Seroquel 12.5 mg PO HS HLD -Lipitor 40 mg PO HS Hypothyroid -Synthroid 50 mcg PO AM HTN -HCTZ 12.5 mg PO Daily -Lisinopril 20 mg PO Daily Wheelchair bound -PT evaluation, likely complication of her Parkinson's -PT did not recommend rehab placement as it would likely not be beneficial for pt ambulatory status DVT Prophylaxis -Lovenox 30 mg SQ Daily FEN -Fluids: none -Electrolytes: No electrolyte abnormalities, BMP in AM -Nutrition: Regular Diet with 2 ensures, Magic Cup with dinner Disposition Telemetry, DC pending yoel lift delivery to home Visit type - Emergency Visit Emergency Visit: Yes ED Registration Date: 06/02/18 Care time: The patient presented to the Emergency Department on the above date and was hospitalized for further evaluation of their emergent condition. - New Patient This patient is new to me today: No - Critical Care Critical Care patient: No
[2018-06-10] MEDS: QUEtiapine FUMARATE 25 MG TABLET (FP) PO SCH (20:08)
[2018-06-10] MEDS: ATORVASTATIN CA 40 MG TABLET (FP) PO SCH (21:05)
[2018-06-10] MEDS: SENNOSIDES 8.6MG TABLET (FP) PO SCH (21:05)
[2018-06-11] MEDS ORDERED: PT OWN MED DRAWER 7, Y5N ONE ×4 (05:21→14:14)
[2018-06-11] MEDS: DIVALPROEX SODIUM 125 MG SPRINKLE CAPS PO SCH ×2 (05:22→14:30)
[2018-06-11] MEDS: LEVOTHYROXINE NA 50 MCG TABLET (FP) PO SCH (06:26)
[2018-06-11] MEDS: HYDROCHLOROTHIAZIDE 12.5 MG CAPSULE (FP) PO SCH (09:03)
[2018-06-11] MEDS: PATIENT'S OWN MEDICATION (NON-FORMULARY) (Memantine Hcl [Namenda Xr] 0 MG) PO SCH (09:03)
[2018-06-11] MEDS: ENOXAPARIN NA (PORCINE) 30 MG/0.3 ML DISP.SYRIN SQ SCH (09:04)
[2018-06-11] MEDS: ARTIFICIAL TEARS (POLYVINYL ALCOHOL) OPTH DROPS OU SCH (09:04)
[2018-06-11] MEDS: ASPIRIN 81 MG CHEWABLE TABLETS PO SCH (09:04)
[2018-06-11] MEDS: LISINOPRIL 20 MG TABLET (FP) PO SCH (09:06)
[2018-06-11] MEDS: POLYETHYLENE GLYCOL 3350 119 GM BTL PO SCH (09:06)
--- NOTE | 2018-06-11 11:18 | DS ---
Physical Exam: SUBJECTIVE: Patient seen and examined this AM. She is at her baseline. Emilia lift has been delivered to home and she is for discharge this morning. OBJECTIVE: Vital Signs Period Temp Pulse Resp BP Sys/Torres Pulse Ox Last 24 Hr 97.4 F-98.8 F 82-96 16-20 105-131/43-79 97 PHYSICAL EXAM GENERAL: alert though nonverbal, no acute distress HEAD: Normocephalic, atraumatic. EYES: PERRL, no scleral icterus EARS, NOSE, THROAT: Dry mucus membranes NECK: supple without lymphadenopathy LUNGS: CTA b/l, no crackles or wheezes HEART: Regular rate and rhythm, normal S1 and S2 without murmur ABDOMEN: Soft, mild grimace on palpation, normoactive bowel sounds MUSCULOSKELETAL: ROM in tact EXTREMITIES: 2+ pulses, warm, well-perfused. No peripheral edema. minimal erythema on anterior portion of ankle NEUROLOGICAL: Cranial nerves difficult to assess but grossly in tact. Nonverbal SKIN: Warm, dry, no rashes or lesions noted LABS HOSPITAL COURSE: Date of Admission:06/02/18 Date of Discharge: 06/11/18 HPI on Admission: Pt is a 78 yo F with PMHx Alzheimer's Dementia, Parkinson's, bradycardia, HLD, HTN, previous UTI, currently wheelchair bound, brought in by daughter from home for altered mental status since yesterday am. Pt's daughter noticed her more withdrawn yesterday, with difficulty feeding "daughter thought the food was spilling out of her mouth after being fed", the daughter also thought the Pt was more "tilted to the left" in the wheel chair. At baseline, pt is unable to communicate pain or needs verbally and was able to walk with assistance until 3 weeks ago when she became wheelchair bound presumably from the worsening Parkinsons/Alzheimes. No previous fevers, nasal congestion or cough, no syncope noted prior, no falls. No hematuria or loose stools. This morning, the Pt was completely unable to feed, so was brought in. While in the ED however Pt was able to take soup and thin liquids with no problems. Pt only took the am dose of depakote today In the ED, Pt's daughter noticed L knee swelling. Hospital Course: She was diagnosed with a UTI and cultures grew E. fecalis which was fairly brennan sensitive. She completed a course of Levaquin and she improved and returned to baseline. She was deemed medically safe for discharge to home as PT evaluated her and did not feel she would benefit from subacute rehab facility. She was also seen by neuro who did not feel she was having any acute neurological changes from her baseline and that her initial presentation was likely acute metabolic encephalopathy secondary to her UTI. Minutes to complete discharge: 35 Discharge Summary Reason For Visit: URINARY TRACT INFECTION,FAILURE TO THRIVE,AMS Current Active Problems Altered mental status (Acute) UTI (urinary tract infection) (Acute) Condition: Stable - Instructions Diet, Activity, Other Instructions: You were admitted for a change in mental status and activity level and found to have a urinary tract infection. You were treated by antibiotics and clinically improved. At this point you are medically cleared to be discharged and return home. You were seen by physical therapy who did not feel that inpatient physical therapy would benefit your ability to walk, as they were unable to help you stand even with two assistants. You should continue all of your home medications as they are prescribed. You should follow up with your primary care physician within 2 week of discharge from the hospital. You should also continue to follow up with Dr. Keene (neurologist) as needed. If your symptoms worsen/return or if you have any concerning symptoms, you should be seen by your doctor or return to the emergency department. Referrals: Talon Gonsalez MD [Primary Care Provider] - Eugene Keene MD [Staff Physician] - Disposition: HOME - Home Medications Comprehensive Discharge Medication List: Ambulatory Orders Aspirin [ASA -] 81 mg PO DAILY 04/17/17 Atorvastatin Ca [Lipitor] 40 mg PO HS 04/17/17 Dextran 70/Hypromellose/Pf [Artificial Tears Drops] 1 each OP BID #30 droperette 04/17/17 Levothyroxine [Synthroid -] 50 mcg PO DAILY 04/17/17 Memantine HCl [Namenda Xr] 28 mg PO DAILY 04/17/17 Polyethylene Glycol 3350 [Miralax 119 gm Btl -] 17 gm PO DAILY 04/17/17 Divalproex Sodium [Depakote] 125 mg PO TID 06/02/18 Lisinopril 20 mg PO DAILY 06/02/18 Quetiapine Fumarate [Seroquel -] 25 mg PO HS 06/02/18 This patient is new to me today: No Emergency Visit: Yes ED Registration Date: 06/02/18 Care time: The patient presented to the Emergency Department on the above date and was hospitalized for further evaluation of their emergent condition. Critical Care patient: No - Discharge Referral Referred to [facility] No
--- NOTE | 2018-06-11 12:07 | PN ---
Teaching Attending Note Name of Resident: Reggie Najera ATTENDING PHYSICIAN STATEMENT I saw and evaluated the patient. I reviewed the resident's note and discussed the case with the resident. I agree with the resident's findings and plan as documented. SUBJECTIVE: Non-verbal. No complaints. OBJECTIVE: Appears Comfortable. Hemodynamically Stable. Awake, eating breakfast. Last Vital Signs Temp Pulse Resp BP Pulse Ox 97.4 F L 88 16 116/78 97 06/11/18 06:00 06/11/18 06:00 06/11/18 06:00 06/11/18 06:00 06/10/18 21:00 HEENT - small hematoma R frontal region of forehead, non-tender. Heart - S1, S2, RRR Lungs - clear to auscultation Abdomen - Soft, non-tender. Bowel Sounds normal. Extremities - no edema. No calf tenderness. Current Medications Generic Name Dose Route Start Last Admin Trade Name Freq PRN Reason Stop Dose Admin Acetaminophen 500 mg 06/05/18 17:17 06/09/18 20:50 Tylenol - PO 500 mg Q8H PRN Administration PAIN LEVEL 1 - 3 Artificial Tears 1 drop 06/02/18 22:00 06/11/18 09:04 Artificial Tears OU 1 drop BID NABIL Administration Aspirin 81 mg 06/02/18 19:45 06/11/18 09:04 Asa - PO 81 mg DAILY NABIL Administration Atorvastatin Calcium 40 mg 06/02/18 22:00 06/10/18 21:05 Lipitor - PO 40 mg HS NABIL Administration Diphenhydramine HCl 25 mg 06/04/18 16:25 Benadryl - PO DAILY PRN FOR ITCHING Divalproex Sodium 125 mg 06/05/18 20:00 06/11/18 05:22 Depakote Sprinkle Caps - PO 125 mg DAILY@0600,1400,2000 NABIL Administration Enoxaparin Sodium 30 mg 06/02/18 21:45 06/11/18 09:04 Lovenox - SQ 30 mg DAILY NABIL Administration Hydrochlorothiazide 12.5 mg 06/03/18 10:00 06/11/18 09:03 Hctz - PO 12.5 mg DAILY NABIL Administration Levothyroxine Sodium 50 mcg 06/02/18 19:45 06/11/18 06:26 Synthroid - PO 50 mcg DAILY@0700 NABIL Administration Lisinopril 20 mg 06/02/18 20:00 06/11/18 09:06 Prinivil PO 20 mg DAILY NABIL Administration Non-Formulary Medication 0 mg 06/04/18 18:00 06/11/18 09:03 Memantine Hcl [Namenda Xr] PO 28 mg DAILY NABIL Administration Polyethylene Glycol 17 gm 06/02/18 19:45 06/11/18 09:06 Miralax (For Daily Use) - PO 17 gm DAILY NABIL Administration Quetiapine Fumarate 12.5 mg 06/05/18 20:00 06/10/18 20:08 Seroquel - PO 12.5 mg DAILY@1999 NABIL Administration Senna 2 tab 06/09/18 22:00 06/10/18 21:05 Senna - PO 2 tab HS NABIL Administration ASSESSMENT AND PLAN: 78 year old female bed/wheelchair-bound with history of Parkinson's Disease, Advanced Dementia, HTN, HLD, History of recurrent UTIs, Bradycardia who presented to the ED with altered mental status. 1. Acute metabolic encephalopathy secondary to UTI UCx pos for enterococcus. Improved after course of Levofloxacin - completed 7 day course of Levofloxaicn. 2. Parkinson's Disease with generalized weakness and Dementia - Not on PD modifying drugs. 3. Dementia - Continue Namenda, Seroquel, Depakote. No behavioral disturbance. 4. HTN - Continue lisinopil, HCTZ 5. Hyperlipidemia - Continue Lipitor 6. Hypothyroidism - Continue Synthroid. 7. Ambulatory Dysfunction - no report of falls. Hematoma R forehead - CT Head: no acute findings. Left leg/foot pain with ecchymosis of left foot - X-rays of left hip and left knee show mild degenerative disease - X-rays of left ankle/foot show no fracture Unable to participate with PT. 8. Dispo - for discharge home in the care of her daughter. Emilia lift arranged at home. Daughter is caregiver. Medically stable for discharge once home equipment and services are in place.
[2018-06-11 17:46] VITALS: BP 136/50; PULSE 82; TEMP 98.7
== END 2018-06-11 19:21 | disposition home or self-care (01) | DRG 689 ==
LOC: JER 15:20 → JERBED 18:31 → J4S 06-03 18:34 → UNDODISIN 06-09 13:47
DX: N39.0 Urinary tract infection, site not specified (principal); G93.41 Metabolic encephalopathy; E87.0 Hyperosmolality and hypernatremia; G20 Parkinson's disease; B95.2 Enterococcus as the cause of diseases classified elsewhere; G30.9 Alzheimer's disease, unspecified; F02.80 Dementia in other diseases classified elsewhere, unspecified severity, without behavioral disturbance, psychotic disturbance, mood disturbance, and anxiety; R40.0 Somnolence; I10 Essential (primary) hypertension; E78.5 Hyperlipidemia, unspecified; E03.9 Hypothyroidism, unspecified; R00.1 Bradycardia, unspecified; M25.462 Effusion, left knee; E87.8 Other disorders of electrolyte and fluid balance, not elsewhere classified; R53.1 Weakness; E86.0 Dehydration; D64.9 Anemia, unspecified; M16.12 Unilateral primary osteoarthritis, left hip; S00.83XA Contusion of other part of head, initial encounter; M17.12 Unilateral primary osteoarthritis, left knee; S90.32XA Contusion of left foot, initial encounter; Y92.89 Other specified places as the place of occurrence of the external cause; X58.XXXA Exposure to other specified factors, initial encounter; Z99.3 Dependence on wheelchair
CPT/HCPCS: 36415; 70450-TC; 71045-TC-FY; 73523-TC-FY; 73562-TC-LT-FY; 73610-TC-LT-FY; 73630-TC-LT; 80048; 80053; 81003; 81015; 82550; 82553; 83735; 84100; 84484; 85025; 85027; 85610; 85730; 86850; 86900; 86901; 87086; 87186; 93005; 93010; 93971-TC; 97161-GP; 99285-25

== ENCOUNTER 2018-06-15 11:18 | Observation (INO) | payer OTHER ==
[2018-06-15] MEDS ORDERED: methylPREDNISolone NA SUCC 125 MG/2 ML VIAL ONE (11:26)
[2018-06-15] MEDS ORDERED: FAMOTIDINE 20 MG/50 ML IVPB 20 MG/50 ML MG IVPB ONE ×2 (11:26→11:42)
[2018-06-15] MEDS ORDERED: methylPREDNISolone NA SUCC 125 MG/2 ML VIAL IVPUSH ONE (11:42)
--- NOTE | 2018-06-15 11:53 | PDOC ---
History of Present Illness - General Stated Complaint: FACIAL SWELLING Time Seen by Provider: 06/15/18 11:41 History Source: Family Exam Limitations: Dementia - History of Present Illness Initial Comments: 06/15/18 11:54 78YOF with h/o Parkinson's disease with dementia, chronic difficulty swallowing , HTN (on lisinopril for many years), and behavioral disturbance (just started Seroquel and Depakote) who was BIBEMS with her daughter c/o lip and tongue swelling for the past day, as well as increased occasional snoring-type respirations for the past 2 days. The daughter notes she has been drooling out the sides of her mouth for the past day as well, and that the inside of her mouth (especially tongue) is very dry and cracking and has become raw with small bleeding. She otherwise has been acting per her normal baseline. Past History - Past Medical History Allergies/Adverse Reactions: Allergies Allergy/AdvReac Type Severity Reaction Status Date / Time strawberry Allergy Mild Hives Verified 06/15/18 11:43 tomato Allergy Mild Hives Verified 06/15/18 11:43 divalproex sodium Allergy Verified 06/16/18 15:32 [From Depakote] lisinopril Allergy Verified 06/16/18 15:32 No Known Drug Allergies Allergy Verified 06/15/18 11:43 quetiapine [From Seroquel] Allergy Verified 06/16/18 15:32 Home Medications: Ambulatory Orders Aspirin [ASA -] 81 mg PO DAILY 04/17/17 Atorvastatin Ca [Lipitor] 40 mg PO HS 04/17/17 Levothyroxine [Synthroid -] 50 mcg PO DAILY 04/17/17 Memantine HCl [Namenda Xr] 28 mg PO DAILY 04/17/17 Divalproex Sodium [Depakote] 125 mg PO TID 06/02/18 Lisinopril 20 mg PO DAILY 06/02/18 Quetiapine Fumarate [Seroquel -] 25 mg PO HS 06/02/18 Cardiac Disorders: Yes (bradycardia) COPD: No Dementia: Yes (ALZHEIMERS.) Disorders: (UTI) HTN: Yes Hypercholesterolemia: Yes Thyroid Disease: Yes (hypothyroid) - Suicide/Smoking/Psychosocial Hx Smoking History: Never smoked Have you smoked in the past 12 months: No Hx Alcohol Use: No Drug/Substance Use Hx: No Substance Use Type: None Hx Substance Use Treatment: No Review of Systems - Review of Systems Able to Perform ROS?: No *Physical Exam - Vital Signs Initial Vital Signs Temp Pulse Resp BP Pulse Ox 97.5 F L 86 16 139/77 98 06/15/18 11:20 06/15/18 11:20 06/15/18 11:20 06/15/18 11:20 06/15/18 11:20 - Physical Exam Comments: GENERAL: obtunded, unable to answer questions, decreased response to verbal stimuli HEENT: inferior>superior lip angioedema, also moderate tongue edema, unable to visualized back of throat, no stridor, small amount of drooling, PERRLA, dry mucous membranes and tongue NECK/BACK: no spinal stepoff or deformity, no hematoma, neck supple CARDIOVASCULAR: regular rate/rhythm, normal S1S2, no MGR, capillary refill <2 seconds, extremities wwp, no edema LUNGS/RESPIRATORY: nononlabored respirations, lungs CTAB GI/ABDOMEN: symmetric [id number], normoactive BS, soft, no midline pulsatile masses, no organomegaly : normal external appearance, no lesions, no swelling, non-malodorous EXTREMITIES: diffuse muscle atrophy, no acute deformity, no edema SKIN: See HEENT exam for oropharyngeal exam; otherwise skin is warm and dry, no pallor, no jaundice, no rash, no bruising, no skin breakdown, no cuts NEUROLOGICAL: pupils fixed and dilated, patient is unable to participate in exam ED Treatment Course - LABORATORY CBC & Chemistry Diagram: 06/16/18 07:00 06/16/18 06:30 Medical Decision Making - Medical Decision Making Pt p/w apparent allergic reaction. Initial Vital Signs Temp Pulse Resp BP Pulse Ox 97.5 F L 86 16 139/77 98 06/15/18 11:20 06/15/18 11:20 06/15/18 11:20 06/15/18 11:20 06/15/18 11:20 Exam: As noted in Physical Exam section. DDX IBNLT: angioedema, allergic rxn, less likely any of the following: anaphylaxis, contact dermatitis, [employer], RPA, laryngitis, tracheitis, tonsillitis esophagitis, GERD, dysphagia, ACS, tracheal/esophageal trauma, etc. W/U ordered: Labs as noted below TX ordered: IVF, Pepcid, Benadryl, SoluMedrol, FFP (for presumed ACEI mediated angioedema). Laboratory Tests 06/15/18 06/15/18 11:50 11:50 WBC 13.2 H RBC 3.58 L Hgb 10.7 Hct 32.8 MCV 91.5 MCH 29.8 MCHC 32.6 RDW 15.0 Plt Count 248 MPV 9.2 Absolute Neuts (auto) 10.7 H Neutrophils % 81.0 Lymphocytes % 11.1 Monocytes % 6.9 Eosinophils % 0.4 Basophils % 0.6 Nucleated RBC % 0 Sodium 149 H Potassium 4.8 Chloride 114 H Carbon Dioxide 28 Anion Gap 8 BUN 29 H Creatinine 0.8 Creat Clearance w eGFR > 60 Random Glucose 88 Calcium 9.0 Magnesium 2.3 Total Bilirubin 0.5 AST 39 H ALT 23 Alkaline Phosphatase 108 Total Protein 7.6 Albumin 2.9 L Reassessment: Exam unchanged, breathing unlabored. Patient was evaluated by ENT Dr. Duffy. She was able to scope/see posterior oropharynx and states there was no posterior swelling at this time. The Pt is unsafe for discharge at this time. They require further hospital observation, workup, and treatment. Microblog sent to [facility] for admission. Blank Decision to Admit order is placed per ED protocol. Spoke with admitting team open claims representative, in agreement Pt to be admitted to Med/ Surg Obs. Decision to Admit order placed to [facility] covering attending Dr. Cheek. *DC/Admit/Observation/Transfer Diagnosis at time of Disposition: Angioedema Qualifiers: Encounter type: initial encounter Qualified Code(s): T78.3XXA - Angioneurotic edema, initial encounter - Discharge Dispostion Condition at time of disposition: Guarded Decision to Admit order: Yes - Referrals - Patient Instructions - Post Discharge Activity
--- NOTE | 2018-06-15 11:53 | PDOC ---
Attending Attestation - Medical Decision Making 06/15/18 13:[address] Gonsaelz to update on admission, awaiting call back. <Falguni Alanis - Last Filed: 06/15/18 13:40> - Resident Resident Name: Abeba Stuart - ED Attending Attestation I have performed the following: I have examined & evaluated the patient, The case was reviewed & discussed with the resident, I agree w/resident's findings & plan, Exceptions are as noted - HPI HPI: 06/15/18 12:09 The patient is a 78 year old female, with a significant past medical history of Parkinsons, Alzheimer's dementia (non-verbal @ baseline), HTN on lisinopril for years, HLD, hypothyroidism, who presents to the emergency department with 1 day of lip and tongue swelling. As per patients daughter at bedside, her lips ( upper and lower) and tongue have been swollen since yesterday prompting their arrival to the ED. Pts daughter notes difficulty swallowing but states that has been going on for months and has been attributed by her doctor to her parkinsons disease. Last dose of lisinopril was yesterday. Allergies: Tyro, tomato. Past surgical history: None reported. Social history: Lives with daughter and has 2 at home aids. - Physicial Exam PE: 06/15/18 12:15 agree with resident exam - Critical Care Time Total Critical Care Time: 60 Critical Care Statement: The care of this patient involved high complexity decision making to prevent further life threatening deterioration of the patient 's condition and/or to evaluate & treat vital organ system(s) failure or risk of failure. - Medical Decision Making 06/15/18 12:15 78yo F presents to the ED with MAYITO-I related angioedema Pt s/p pepcid, benadryl, and solumedrol. FFP ordered (daughter consents) ENT is on their way to the ED to scope Airway equipment at bedside RR 18, O2 sat 100& at this time Symptoms onset 1 day ago is protective against progression of airway swelling, but without direct visualization by scope, it's hard to know extent of airway edema at this time Pt on monitor 06/15/18 14:17 Airway patent on scoping Plan for hydration, monitoring Pt admitted for further observation <Nyla Kelsey - Last Filed: 06/15/18 14:18> Attestations - Attestations 06/15/18 13:42 Documentation prepared by Falguni Alanis, acting as medical science liaison for Nyla Kelsey MD. <Falguni Alanis - Last Filed: 06/15/18 13:40>
[2018-06-15 12:09] LABS: BASO % 0.6 % (0-2.0); EOS % 0.4 % (0-4.5); HEMATOCRIT 32.8 % (32.4-45.2); HEMOGLOBIN 10.7 GM/dL (10.7-15.3); LYMPH % 11.1 % (8-40); MCH 29.8 pg (25.7-33.7); MCHC 32.6 g/dl (32.0-36.0); MEAN CELL VOLUME 91.5 fl (80-96); MEAN PLT VOLUME 9.2 fl (7.5-11.1); MONO % 6.9 % (3.8-10.2); PLATELET COUNT 248 K/MM3 (134-434); RBC 3.58 M/mm3 (3.60-5.2); WHITE BLOOD COUNT 13.2 K/mm3 (4.0-10.0)
[2018-06-15 12:58] LABS: ALBUMIN 2.9 g/dl (3.4-5.0); ALK PHOS 108 U/L (45-117); ANION GAP 8 MMOL/L (8-16); BILIRUBIN,TOTAL 0.5 mg/dL (0.2-1); BLOOD UREA NITROGEN 29 mg/dL (7-18); CHLORIDE 114 mmol/L (98-107); CO2 28 mmol/L (21-32); CREATININE 0.8 mg/dL (0.55-1.3); GLUCOSE,RANDOM 88 mg/dL (74-106); MAGNESIUM 2.3 mg/dL (1.8-2.4); POTASSIUM 4.8 mmol/L (3.5-5.1); SGOT/AST 39 U/L (15-37); SGPT/ALT 23 U/L (13-61); SODIUM 149 mmol/L (136-145); TOT PROT 7.6 g/dl (6.4-8.2)
--- NOTE | 2018-06-15 13:55 | CONSULT ---
Consult - text type - Consultation Consultation Note: Patient is 78 y/o female who is nonverbal with h/o HTN, Parkinson's disease, Alzheimer's disease on Lisinopril for many years and has recently started Seroquel and Depakote for tremors. She also had recent h/o UTI and has been worked up for dysphasia. Daughter reports mild facial swelling yesterday and then lip swelling this morning which has been progressive. ER attending has not appreciated further lip swelling since she has been in the Er but the daughter has. She has received Benadryl, Pepcid and solumderol since arrival. Daughter reports patient hasn't been drinking or eating this morning and had decreased po intake yesterday. PMH: see above Meds: see above SH: NC Family history: daughter with h/o angioedema with MAYITO inhibitor. Vss Afeb , no drooling, no accessory muscle use for breathing Nonresponsive ( daughter reports this is stable) Ears auricles wnl Au Oc- moderate lower lip edema, tongue is moderately swollen and not protruding- able to visualize oropharynx with tongue depressor. Op: uvula wnl. mucosa wnl. pharyngeal pillars wnl. Neck: no swelling, masses DFL: Nc mucosa wnl, turbinates wnl , septum mildly deviated. no pus or polyps. Npx: wnl - no edema, no purulence, no masses Hypopharynx: pharyngela mucosa wnl. arytenoids wnl bilaterally, post cricoid mucosa wnl. no pooling of secretions. no edema. Larynx: Vfs mobile paola. no edema. A/P: Angioedema- likely drug induced (late onset) Edema confined to face and tongue . Oropharynx, hypophayrnx, and larynx are patent. No respiratory distress. Medications have been stopped. Continue benadryl, pepcid and steroids and monitoring. Hydration with IV fluids as needed. She can follow up with [facility] (Dr. newton, Dr. Putnam) [facility] her daugther is patient after discharger. Reconsult if patient worsens.
[2018-06-15] MEDS ORDERED: SODIUM CHLORIDE 0.9% 500 ML INFUS.BAG IV ONE (13:59)
--- NOTE | 2018-06-15 15:01 | HP ---
CHIEF COMPLAINT: " swelling of tongue and lips PCP: Dr. Gonsalez HISTORY OF PRESENT ILLNESS: Patient non verbal at baseline, history obtained from patient's daughter. Patient is a 78 year old female brought in by daughter via EMS with the chief complaint of swelling of tongue and lips x 1 day. As per the daughter, she was apparently well until 2 days ago, then started developing lip swelling. This morning when she woke up, the swelling of lips/tongue got worse, had drooling of saliva. Hence brought in to the ED for further evaluation. Denies shortness of breath, nausea, vomiting, fever, rigors or sweating. Patient was recently admitted at [facility] 06/04/18-06/11/18 for Urinary tract infection E. fecalis and treated with IV Levaquin. The newer medication that was added was Depakote and Seroquel. Patient has been on Lisinopril for 9 yrs without any issues. No other newer medication or food within the past week. Last bowel movement was yesterday. Bladder habit normal. Sleep normal. Appetite : low appetite. In the ED, she was evaluated by ENT today. Oropharynx, hypophayrnx, and larynx were patent and there was no signs of respiratory distress. ER course was notable for: (1) Afebrile, hemodynamically stable. (2) No imaging (3) FFP, IV Benadryl, Famotidine, Solumedrol Recent Travel: PAST MEDICAL HISTORY: Alzheimer's Dementia, Parkinson's, bradycardia, HLD, HTN, frequent UTI,currently wheelchair bound PAST SURGICAL HISTORY: None reported Social History: Smoking: Denies Alcohol: Denies Drugs: Denies Family History: Non contributory Allergies strawberry Allergy (Mild, Verified 06/15/18 11:43) Hives tomato Allergy (Mild, Verified 06/15/18 11:43) Hives No Known Drug Allergies Allergy (Verified 06/15/18 11:43) HOME MEDICATIONS: Home Medications Medication Instructions Recorded Aspirin [ASA -] 81 mg PO DAILY 04/17/17 Atorvastatin Ca [Lipitor] 40 mg PO HS 04/17/17 Levothyroxine [Synthroid -] 50 mcg PO DAILY 04/17/17 Memantine HCl [Namenda Xr] 28 mg PO DAILY 04/17/17 Divalproex Sodium [Depakote] 125 mg PO TID 06/02/18 Lisinopril 20 mg PO DAILY 06/02/18 Quetiapine Fumarate [Seroquel -] 25 mg PO HS 06/02/18 REVIEW OF SYSTEMS CONSTITUTIONAL: Absent: fever, chills, diaphoresis, generalized weakness, malaise, loss of appetite, weight change HEENT: Present: Throat swelling, difficulty swallowing, mouth swelling, Absent: rhinorrhea, nasal congestion, throat pain, ear pain, eye pain, visual changes CARDIOVASCULAR: Absent: chest pain, syncope, palpitations, irregular heart rate, lightheadedness , peripheral edema RESPIRATORY: Absent: cough, shortness of breath, dyspnea with exertion, orthopnea, wheezing, stridor, hemoptysis GASTROINTESTINAL: Absent: abdominal pain, abdominal distension, nausea, vomiting, diarrhea, constipation, melena, hematochezia GENITOURINARY: Absent: dysuria, frequency, urgency, hesitancy, hematuria, flank pain, genital pain MUSCULOSKELETAL: Absent: myalgia, arthralgia, joint swelling, back pain, neck pain SKIN: Absent: rash, itching, pallor HEMATOLOGIC/IMMUNOLOGIC: Absent: easy bleeding, easy bruising, lymphadenopathy, frequent infections ENDOCRINE: Absent: unexplained weight gain, unexplained weight loss, heat intolerance, cold intolerance NEUROLOGIC: Absent: headache, focal weakness or paresthesias, dizziness, unsteady gait, seizure, mental status changes, bladder or bowel incontinence PSYCHIATRIC: Absent: anxiety, depression, suicidal or homicidal ideation, hallucinations. PHYSICAL EXAMINATION Vital Signs - 24 hr 06/15/18 11:20 Temperature 97.5 F L Pulse Rate 86 Respiratory 16 Rate Blood Pressure 139/77 O2 Sat by Pulse 98 Oximetry (%) GENERAL: Elderly female, sitting in bed, Awake , non verbal at baseline, in no acute distress. HEAD: Normal with no signs of trauma. EYES: EOM intact, no pallor or icterus. EARS, NOSE, THROAT: Swollen lips +, peeling of the mucosa of the cheeks, oropharynx difficult to visualize as patient wasn't cooperative. No drooling of saliva. Dry mucous membranes. NECK: Supple, LUNGS: B/L breath sounds equal, no added sounds HEART: Regular rate and rhythm, normal S1 and S2 with systolic murmur +. ABDOMEN: Soft, nontender, no organomegaly. MUSCULOSKELETAL: Normal range of motion at all joints. No bony deformities or tenderness. No CVA tenderness. UPPER EXTREMITIES: 2+ pulses, warm, well-perfused. No cyanosis. No clubbing. No peripheral edema. LOWER EXTREMITIES: 2+ pulses, warm, well-perfused. No calf tenderness. No peripheral edema. NEUROLOGICAL: No facial droop, cog wheel rigidity, non verbal at baseline. PSYCHIATRIC: Uncooperative. Poor eye contact. SKIN: Warm, dry, normal turgor, no rashes or lesions noted, normal capillary refill. Laboratory Results - last 24 hr 06/15/18 06/15/18 11:50 11:50 WBC 13.2 H RBC 3.58 L Hgb 10.7 Hct 32.8 MCV 91.5 MCH 29.8 MCHC 32.6 RDW 15.0 Plt Count 248 MPV 9.2 Absolute Neuts (auto) 10.7 H Neutrophils % 81.0 Lymphocytes % 11.1 Monocytes % 6.9 Eosinophils % 0.4 Basophils % 0.6 Nucleated RBC % 0 Sodium 149 H Potassium 4.8 Chloride 114 H Carbon Dioxide 28 Anion Gap 8 BUN 29 H Creatinine 0.8 Creat Clearance w eGFR > 60 Random Glucose 88 Calcium 9.0 Magnesium 2.3 Total Bilirubin 0.5 AST 39 H ALT 23 Alkaline Phosphatase 108 Total Protein 7.6 Albumin 2.9 L ASSESSMENT/PLAN: Patient is a 78 year old female with significant past medical history of Alzheimer's Dementia, Parkinson's, bradycardia, HLD, HTN, frequent UTI, currently wheelchair bound brought in by daughter from home via EMS with the chief complaint of swelling of tongue and lips x 1 day. # Angioedema likely secondary to medications- not in respiratory distress Patient on lisinopril since 9 yrs however, it could be late onset angioedema from it. Was started on Depakote and Seroquel last week. c/o lip/tongue swelling and drooling of saliva. Treated with IV Benadryl, Solumedrol, Zantac and 1 FFP Evaluated by ENT at bedside, Oropharynx, hypophayrnx, and larynx were patent. Admit to Med-Surg/Observation Continue IV Benadryl, Solumedrol, Zantac Keep her NPO till the swelling resolves IV NS @ 83 mls.hr Resume diet when able to tolerate PO # Alzheimer's Dimentia/Parkinson's Continue Namenda 28 mg PO Daily. Unsure why she is not on sinemet, would consider starting it. Stop Depakote and Seroquel-unsure if it was the cause of angioedema as these were the two medications that was started just last week. # HTN-controlled Stop Lisinopril as it could be the cause of angioedema-late onset, pt was on it for 9 yrs. # Hypothyroidism Continue synthyroid 50mcg # Constipation on colase and miralax # FEN IV NS @ 83 mls.hr Electrolytes WNL NPO, advance diet when she can tolerate PO. As per the daughter, she wants someone to call before starting the feeds. # Prophylaxis For DVT: On Lovenox 40mg sq daily For GI: Not indicated # Code Status: Full Code # Dispo: Admit in Med-Surg/Observation. Duration of stay likely 1-2 days. Illness ,Investigation and Plan of care explained to the patient's daughter. She verbalized understanding. Case discussed with Dr. Cheek. Problem List - Problem (1) Angioedema Code(s): T78.3XXA - ANGIONEUROTIC EDEMA, INITIAL ENCOUNTER Qualifiers: Encounter type: initial encounter Qualified Code(s): T78.3XXA - Angioneurotic edema, initial encounter (2) Altered mental status Code(s): R41.82 - ALTERED MENTAL STATUS, UNSPECIFIED Qualifiers: Altered mental status type: somnolence Qualified Code(s): R40.0 - Somnolence (3) Alzheimer's dementia Code(s): G30.9 - ALZHEIMER'S DISEASE, UNSPECIFIED Qualifiers: Alzheimer's disease onset: other onset Dementia behavioral disturbance: without behavioral disturbance Qualified Code(s): G30.8 - Other Alzheimer's disease (4) Bradycardia Code(s): R00.1 - BRADYCARDIA, UNSPECIFIED Visit type - Emergency Visit Emergency Visit: Yes ED Registration Date: 06/15/18 Care time: The patient presented to the Emergency Department on the above date and was hospitalized for further evaluation of their emergent condition. - New Patient This patient is new to me today: Yes Date on this admission: 06/15/18 - Critical Care Critical Care patient: No
[2018-06-15] MEDS ORDERED: SODIUM CHLORIDE 1,000 ML IV SCH (16:00)
[2018-06-15] MEDS ORDERED: DOCUSATE SODIUM 100 MG CAPSULE (FP) PO PRN (17:00)
--- NOTE | 2018-06-15 18:46 | PN ---
Teaching Attending Note Name of Resident: Yee Castillo ATTENDING PHYSICIAN STATEMENT I saw and evaluated the patient. I reviewed the resident's note and discussed the case with the resident. I agree with the resident's findings and plan as documented. SUBJECTIVE: OBJECTIVE: s1 and s2 lungs cta tongue swelling abdomen soft non-tender drowsy ASSESSMENT AND PLAN: 78 year old female with significant past medical history of Alzheimer's Dementia , Parkinson's, bradycardia, HLD, HTN, frequent UTI,currently wheelchair bound brought in by daughter from home via EMS with the chief complaint of swelling of tongue and lips x 1 day. # Angioedema likely secondary to medications- not in respiratory distress Patient on lisinopril since 9 yrs however, it could be late onset angioedema from it. Was started on Depakote and Seroquel last week. c/o lip/tongue swelling and drooling of saliva. Treated with IV Benadryl, Solumedrol, Zantac and 1 FFP Evaluated by ENT at bedside, Oropharynx, hypophayrnx, and larynx were patent. Admit to Med-Surg/Observation Continue IV Benadryl, Solumedrol, Zantac Keep her NPO till the swelling resolves IV NS @ 83 mls.hr Resume diet when able to tolerate PO # Alzheimer's Dimentia/Parkinson's Continue Namenda 28 mg PO Daily. Unsure why she is not on sinemet, would consider starting it. Stop Depakote and Seroquel-unsure if it was the cause of angioedema as these were the two medications that was started just last week. # HTN-controlled Stop Lisinopril as it could be the cause of angioedema-late onset, pt was on it for 9 yrs. # Hypothyroidism Continue levothyroxine 50mcg # Prophylaxis For DVT: On enoxaparin 40mg sq daily For GI: Not indicated # Code Status: Full Code # Dispo: Admit in Med-Surg/Observation. Duration of stay likely 1-2 days. I
[2018-06-15] MEDS: ATORVASTATIN CA 40 MG TABLET (FP) PO SCH (21:32)
[2018-06-15] MEDS: FAMOTIDINE 20 MG/50 ML IVPB 20 MG/50 ML MG IVPB SCH (21:32)
[2018-06-16] MEDS: SODIUM CHLORIDE 1,000 ML IV SCH ×2 (02:39→05:54)
[2018-06-16] MEDS: LEVOTHYROXINE NA 50 MCG TABLET (FP) PO SCH (06:07)
[2018-06-16 07:48] LABS: BASO % 0.3 % (0-2.0); HEMATOCRIT 30.9 % (32.4-45.2); LYMPH % 7.3 % (8-40); MCH 30.3 pg (25.7-33.7); MCHC 32.5 g/dl (32.0-36.0); MEAN CELL VOLUME 93.2 fl (80-96); MEAN PLT VOLUME 9.6 fl (7.5-11.1); MONO % 6.7 % (3.8-10.2); NEUT % 85.7 % (42.8-82.8); PLATELET COUNT 203 K/MM3 (134-434); RBC 3.31 M/mm3 (3.60-5.2); RDW 15.1 % (11.6-15.6); WHITE BLOOD COUNT 12.8 K/mm3 (4.0-10.0)
[2018-06-16 09:45] LABS: BLOOD UREA NITROGEN 37 mg/dL (7-18); CREATININE 0.8 mg/dL (0.55-1.3); GLUCOSE,RANDOM 83 mg/dL (74-106); POTASSIUM 4.5 mmol/L (3.5-5.1); SODIUM 150 mmol/L (136-145)
[2018-06-16 09:46] LABS: ALBUMIN 2.7 g/dl (3.4-5.0); ANION GAP 11 MMOL/L (8-16); BILIRUBIN,TOTAL 0.4 mg/dL (0.2-1); CALCIUM 8.6 mg/dL (8.5-10.1); CHLORIDE 119 mmol/L (98-107); CO2 20 mmol/L (21-32)
[2018-06-16 09:47] LABS: ALK PHOS 99 U/L (45-117); SGOT/AST 28 U/L (15-37); SGPT/ALT 18 U/L (13-61)
[2018-06-16] MEDS ORDERED: PATIENT'S OWN MEDICATION (NON-FORMULARY) (Memantine Hcl [Namenda Xr] 28 MG) PO SCH (10:00)
[2018-06-16] MEDS: FAMOTIDINE 20 MG/50 ML IVPB 20 MG/50 ML MG IVPB SCH ×2 (10:27→23:37)
[2018-06-16] MEDS: POLYETHYLENE GLYCOL 3350 119 GM BTL PO SCH (10:28)
[2018-06-16] MEDS: amLODIPine BESYLATE 10 MG TABLET (FP) PO SCH (10:28)
[2018-06-16] MEDS: ASPIRIN 81 MG CHEWABLE TABLETS PO SCH (10:28)
--- NOTE | 2018-06-16 13:00 | CONSULT ---
Admitting History and Physical - Primary Care Physician PCP: Miguel Hale - Admission History of Present Illness: Patient is a 78 year old female with significant past medical history of Alzheimer's Dementia, Parkinson's, bradycardia, HLD, HTN, frequent UTI, currently wheelchair bound brought in by daughter from home via EMS with the chief complaint of swelling of tongue and lips x 1 day. In the ED, she was evaluated by ENT . Oropharynx, hypophayrnx, and larynx were patent and there was no signs of respiratory distress. Angioedema likely secondary to medications- not in respiratory distress. Last seen by me 06/10/18, Inconsistently lethargic but tolerated reg diet thin liquids well. 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: Yes: Alzheimer's, Dementia ...: No - Advance Directives Advance Directives: Yes: Health Care Proxy - Smoking History Smoking history: Never smoked Have you smoked in the past 12 months: No - Alcohol/Substance Use Hx Alcohol Use: No History - Admission Reason For Visit: ANGIOEDEMA - General Mental Status: Confused Attention: Moderate Impairment Ability to Follow Directions: Poor Head/Neck Control: Needs Assist - Hearing Hearing: Normal Speech Evaluation - Communication Primary Language: JAPANESE Communication: Yes: Non-Communicable (vocalizes occasionally) - Speech Characteristics Voice Loudness: Normal Voice Pitch: Yes: Normal Voice Phonatory-based Quality: Yes: Normal Speech Pattern: Normal Nasal Resonance: Normal Articulation: Yes: Precise - Language/Verbal Expression Functional Communication Status: Yes: Severely Impaired - Swallow Evaluation/Bedside Assessment Current Nutritional Intake: NPO Oral Secretions: Yes: WFL Facial Symmetry at Rest: Symmetrical Lingual Movement: Symmetric Laryngeal Movement: Able to Palpate, Labored,delay initiation Bolus Size: Small Labial Seal: WFL A-P Transit: WFL Timing of Swallow: Delayed Coughing/Throat Clear: No Change in Voice: No Recommendations - Speech Evaluation, Impression/Plan Impression: Swallow is delayed in onset but fairly brisk. Initially pushed PO trial aware, but then accepted. Oral holding with delayed swallow onset. Fairly brisk once triggered. - Dysphagia Impressions/Plan Swallowing Skills: Impaired Dysphagia Impressions: Mild Impairment, Risk of Aspiration *Silent aspiration: cannot be R/O at bedside Dysphagia Treatment Plan: Small Bites, Chin Tuck/Down, Trial Feedings, Safe Rate , 1/2 tsp. at a time, Elevate HOB during feed - Recommendations Diet Consistency: Dysphagia Pureed Medication Administration: Crushed with applesauce Liquids: [place] Thick Supplement: Magic Cup, Ensure Pudding
--- NOTE | 2018-06-16 15:17 | PN ---
Progress Note (short form) - Note Progress Note: SUBJECTIVE: Non-verbal. No complaints. OBJECTIVE: Appears Comfortable. Hemodynamically Stable. Awake, making eye contact. Last Vital Signs Temp Pulse Resp BP Pulse Ox 98.4 F 62 20 154/76 97 06/16/18 13:42 06/16/18 13:42 06/16/18 13:42 06/16/18 13:42 06/16/18 13:00 HEENT - Atraumatic, Normocephalic. Mild edema upper lip. No tongue swelling appreciated. No stridor. Heart - S1, S2, RRR Lungs - clear to auscultation. No crackles/wheeze. Abdomen - Soft, non-tender. Bowel Sounds normal. Extremities - no edema. No calf tenderness. Laboratory Results - last 24 hr 06/16/18 06/16/18 06:30 07:00 WBC 12.8 H RBC 3.31 L Hgb 10.0 L Hct 30.9 L MCV 93.2 MCH 30.3 MCHC 32.5 RDW 15.1 Plt Count 203 MPV 9.6 Absolute Neuts (auto) 10.9 H Neutrophils % 85.7 H Lymphocytes % 7.3 L D Monocytes % 6.7 Eosinophils % 0.0 D Basophils % 0.3 Nucleated RBC % 0 Sodium 150 H Potassium 4.5 Chloride 119 H Carbon Dioxide 20 L Anion Gap 11 BUN 37 H Creatinine 0.8 Creat Clearance w eGFR > 60 Random Glucose 83 Calcium 8.6 Total Bilirubin 0.4 AST 28 ALT 18 Alkaline Phosphatase 99 Total Protein 7.0 Albumin 2.7 L Current Medications Generic Name Dose Route Start Last Admin Trade Name Freq PRN Reason Stop Dose Admin Amlodipine Besylate 10 mg 06/16/18 10:00 06/16/18 10:28 Norvasc - PO 10 mg DAILY NABIL Administration Aspirin 81 mg 06/16/18 10:00 06/16/18 10:28 Asa - PO 81 mg DAILY NABIL Administration Atorvastatin Calcium 40 mg 06/15/18 22:00 06/15/18 21:32 Lipitor - PO 40 mg HS NABIL Administration Docusate Sodium 100 mg 06/15/18 17:00 Colace - PO Q12H PRN CONSTIPATION Famotidine/Sodium Chloride 20 mg in 50 mls @ 100 mls/hr 06/15/18 22:00 10:27 Pepcid 20 Mg Premixed Ivpb - IVPB 100 mls/hr BID NABIL Administration Sodium Chloride 1,000 mls @ 75 mls/hr 06/16/18 02:30 06/16/18 05:54 Normal Saline - IV 75 mls/hr ASDIR NABIL Administration Levothyroxine Sodium 50 mcg 06/16/18 07:00 06/16/18 06:07 Synthroid - PO Not Given DAILY@0700 [facility] Non-Formulary Medication 28 mg 06/16/18 10:00 Memantine Hcl [Namenda Xr] PO DAILY [facility] Polyethylene Glycol 17 gm 06/16/18 10:00 06/16/18 10:28 Miralax (For Daily Use) - PO Not Given DAILY [facility] Home Medications Medication Instructions Recorded Aspirin [ASA -] 81 mg PO DAILY 04/17/17 Atorvastatin Ca [Lipitor] 40 mg PO HS 04/17/17 Levothyroxine [Synthroid -] 50 mcg PO DAILY 04/17/17 Memantine HCl [Namenda Xr] 28 mg PO DAILY 04/17/17 Divalproex Sodium [Depakote] 125 mg PO TID 06/02/18 Lisinopril 20 mg PO DAILY 06/02/18 Quetiapine Fumarate [Seroquel -] 25 mg PO HS 06/02/18 ASSESSMENT AND PLAN: 78 year old female bed/wheelchair-bound with history of Parkinson's Disease, Advanced Dementia, HTN, HLD, History of recurrent UTIs, Bradycardia recently admitted with AMS sec to UTI, now re-presents with swelling of lips and tongue. 1. Acute Angioedema sec to likely medication - Patient recently started on Seroquel and Depakote by Neuro 2 weeks ago and has been on MAYITO for 9 years. All these medications have been stopped. Patient received Benadryl, Pepcid, IV steroid, and FFP in ED. No respiratory or hemodynamic compromise. Speech/Swallow eval done - for Dysphagia pureed diet with nectar thick liquids. Seen by ENT in ED - Oropharynx, hypophayrnx, and larynx patent - for ENT/ Allergy follow up on discharge (/Dr. Putnam). Will continue Prednisone 40mg daily for 4 additional days along with Famotidine. 2. Parkinson's Disease with generalized weakness and Dementia - Not on PD modifying drugs. 3. Dementia - Continue Namenda. Seroquel and Depakote held. No behavioral disturbance. Neurology consulted for evaluation and recommendations for alternative management regimen. 4. HTN - Lisinopril stopped. Norvasc 10mg started. 5. Hyperlipidemia - Continue Lipitor 6. Hypothyroidism - Continue Synthroid. 7. Ambulatory Dysfunction - no report of falls. Completely dependent. Cared for by her daughter at home. 8. Recent admission for Acute metabolic encephalopathy secondary to UTI UCx pos for enterococcus. Improved after course of Levofloxacin. DVT Px - Lovenox SQ Visit type - Emergency Visit Emergency Visit: Yes ED Registration Date: 06/15/18 Care time: The patient presented to the Emergency Department on the above date and was hospitalized for further evaluation of their emergent condition. - New Patient This patient is new to me today: Yes Date on this admission: 06/16/18 - Critical Care Critical Care patient: No - Discharge Referral Referred to [facility] Med P.C.: No
[2018-06-16] MEDS: predniSONE 20 MG TABLET (UD) PO SCH (18:15)
[2018-06-16] MEDS: ENOXAPARIN NA (PORCINE) 40 MG/0.4 ML DISP.SYRIN SQ SCH (18:15)
--- NOTE | 2018-06-16 19:30 | CONSULT ---
Consult - text type - Consultation Consultation Note: NEUROLOGY CONSULTATION is greatly appreciated: This 78 yo RH woman with HTN, Hypothyroidism and Chol is well-known to me with advanced Alzheimer's disease. Live at home with daughter and health aides. On Memantine XR 28 mg which daughter feels is superior to Generic memantine 10 BID. Also daughter stopped Donepezil due to decreased appetite. On Depakote 125 mg BID for increasing Myoclonic Jerks and quetiapine 12.5 mg HS for sleep and agitation. She has tolerated these meds x many months. At baseline she is non-verbal and bedbound. H/O Multiple recurrent UTI's ( please see recent [facility] admission 06/03/18) Now admitted for possible lip swelling and decreased PO intake. WBC= 13.2K ADARSH: Neck rigid in all directions. Neg Kernig's NEURO: Rest with eyes closed. Resists eye opening with normal, symmetrical facial strength. Follows no commands. Some residual foodstuff in mouth Glabella, snout, symmetrical grasps. Moves all fours symmetrically with rigid tone (legs > arms) Normal reflexes. Toes downgoing. Withdraws all fours briskly to touch. Diffuse myoclonic jerks. IMP: Severe B/L Cerebral Dysfunction (OMS, chronic). Most consistent with Advanced Alzheimer's Disease (AD) R/O worsening of swallowing/appetite due to Toxic Metabolic Encephalopathy especially due to recurrent UTI. SUGGEST: UA, C&S and Rx if indicated Check TSH Keep well-hydrated Can switch memantine to 10 BID or Pt can take Namenda XR from home Observe off Valproic acid and quetiapine for now. Thank you very much, Eugene Keene MD
[2018-06-16] MEDS: ATORVASTATIN CA 40 MG TABLET (FP) PO SCH (23:37)
[2018-06-17] MEDS: LEVOTHYROXINE NA 50 MCG TABLET (FP) PO SCH (06:37)
[2018-06-17] MEDS: ENOXAPARIN NA (PORCINE) 40 MG/0.4 ML DISP.SYRIN SQ SCH (09:20)
[2018-06-17] MEDS: FAMOTIDINE 20 MG/50 ML IVPB 20 MG/50 ML MG IVPB SCH ×2 (09:20→22:00)
[2018-06-17] MEDS: predniSONE 20 MG TABLET (UD) PO SCH (09:21)
[2018-06-17] MEDS: amLODIPine BESYLATE 10 MG TABLET (FP) PO SCH (09:21)
[2018-06-17] MEDS: ASPIRIN 81 MG CHEWABLE TABLETS PO SCH (09:21)
[2018-06-17] MEDS: LACTATED RINGERS SOLUTION 1,000 ML/1,000 ML INFUS.BAG IV SCH (09:21)
[2018-06-17] MEDS: POLYETHYLENE GLYCOL 3350 119 GM BTL PO SCH (09:22)
[2018-06-17 10:16] LABS: URINE APPEARANCE CLEAR; URINE BILIRUBIN NEGATIVE (<2.0 mg/dL); URINE COLOR YELLOW; URINE GLUCOSE (UA) NEGATIVE (NEGATIVE); URINE KETONE NEGATIVE (NEGATIVE); URINE LEUK ESTERASE NEGATIVE (NEGATIVE); URINE NITRITE NEGATIVE (NEGATIVE); URINE PROTEIN NEGATIVE (NEGATIVE); URINE UROBILINOGEN NEGATIVE mg/dL (0.2-1.0)
--- NOTE | 2018-06-17 10:40 | PN ---
Teaching Attending Note Name of Resident: Reggie Najera ATTENDING PHYSICIAN STATEMENT I saw and evaluated the patient. I reviewed the resident's note and discussed the case with the resident. I agree with the resident's findings and plan as documented. SUBJECTIVE: Patient is comfortable in bed. She is non-verbal. OBJECTIVE: Vital Signs Period Temp Pulse Resp BP Sys/Torres Pulse Ox Last 24 Hr 97.1 F-98.7 F 59-77 18-20 112-164/62-94 96-97 HEART: S1S2, RRR LUNGS: Clear ABDOMEN: Soft, non-distended, normal BS EXTREMITIES: No edema Laboratory Results - last 24 hr 06/17/18 06/17/18 06:30 09:30 TSH 1.05 Urine Color Yellow Urine Appearance Clear Urine pH 5.0 Ur Specific [place] 1.025 Urine Protein Negative Urine Glucose (UA) Negative Urine Ketones Negative Urine Blood Negative Urine Nitrite Negative Urine Bilirubin Negative Urine Urobilinogen Negative Ur Leukocyte Esterase Negative Current Medications Generic Name Dose Route Start Last Admin Trade Name Freq PRN Reason Stop Dose Admin Amlodipine Besylate 10 mg 06/16/18 10:00 06/17/18 09:21 Norvasc - PO 10 mg DAILY NABIL Administration Aspirin 81 mg 06/16/18 10:00 06/17/18 09:21 Asa - PO 81 mg DAILY NABIL Administration Atorvastatin Calcium 40 mg 06/15/18 22:00 06/16/18 23:37 Lipitor - PO 40 mg HS NABIL Administration Docusate Sodium 100 mg 06/15/18 17:00 Colace - PO Q12H PRN CONSTIPATION Enoxaparin Sodium 40 mg 06/16/18 15:30 06/17/18 09:20 Lovenox - SQ 40 mg DAILY NABIL Administration Famotidine/Sodium Chloride 20 mg in 50 mls @ 100 mls/hr 06/15/18 22:00 09:20 Pepcid 20 Mg Premixed Ivpb - IVPB 100 mls/hr BID NABIL Administration Lactated Ringer's 1,000 ml in 1,000 mls @ 75 mls/hr 06/17/18 08:00 06/17/18 09:21 Lactated Ringers Solution IV 75 mls/hr ASDIR NABIL Administration Levothyroxine Sodium 50 mcg 06/16/18 07:00 06/17/18 06:37 Synthroid - PO 50 mcg DAILY@0700 NABIL Administration Non-Formulary Medication 28 mg 06/16/18 10:00 Memantine Hcl [Namenda Xr] PO DAILY NABIL Polyethylene Glycol 17 gm 06/16/18 10:00 06/17/18 09:22 Miralax (For Daily Use) - PO 17 gm DAILY NABIL Administration Prednisone 40 mg 06/16/18 15:30 06/17/18 09:21 Deltasone - PO 40 mg DAILY NABIL Administration ASSESSMENT AND PLAN: This is a 78 year old woman with a history of Parkinson disease, dementia, HTN, hyperlipidemia, anemia, UTIs, bradycardia who presented to the ED with swelling of her lips and tongue. 1. Acute angioedema - Improving - Likely secondary to medication - Seroquel, Depakote were started 2 weeks ago - She has been taking lisinopril for 9 years - Seroquel, Depakote, lisinopril discontinued - Benadryl, Pepcid, SoluMedrol, FFP given in ED - Continue Pepcid, Prednisone - Outpatient ENT follow up 2. Hypernatremia - Possibly secondary to dehydration (high BUN:creatinine) - IV LR started this morning - Check electrolytes 3. Parkinson's disease with dementia - Continue Namenda - Seroquel, Depakote held secondary to angioedema 4. HTN - Lisinopril discontinued secondary to angioedema - Continue Norvasc 5. Hyperlipidemia - Continue Lipitor 6. Hypothyroidism - Continue Synthroid 7. Anemia - Hemoglobin stable
--- NOTE | 2018-06-17 12:17 | PN ---
Progress Note, LANG INTERPRETER - Note Progress Note: Selected Entries 06/17/18 06/17/18 06/17/18 01:00 05:00 09:00 Breakfast Temperature 98.0 F 97.7 F 97.1 F L 06/17/18 11:57 Breakfast 75% Temperature Laboratory Tests 06/16/18 07:00 WBC 12.8 H Pt tolerating diet well, with good appetite. Still lethargic on and off. On PO Prednizone, pending d/c. Counseled pt's daughter on placing all food at home with added liquid in relish blender , and thickening liquids with thickening powder to driink.' As pt improves, pt can klikely be upgraded, Pt was on reg diet/thin liquid, tolerated it well until recent admission for Angioedema. If difficulty in 1-2 weeks noted, out pt MBS.
[2018-06-17 12:46] LABS: ANION GAP 7 MMOL/L (8-16); BLOOD UREA NITROGEN 29 mg/dL (7-18); CALCIUM 8.6 mg/dL (8.5-10.1); CHLORIDE 116 mmol/L (98-107); CO2 27 mmol/L (21-32); CREATININE 0.8 mg/dL (0.55-1.3); GLUCOSE,RANDOM 109 mg/dL (74-106); POTASSIUM 4.1 mmol/L (3.5-5.1); SODIUM 149 mmol/L (136-145)
[2018-06-17 13:26] LABS: HEMATOCRIT 31.2 % (32.4-45.2); HEMOGLOBIN 10.3 GM/dL (10.7-15.3); MCH 30.1 pg (25.7-33.7); MCHC 33.1 g/dl (32.0-36.0); MEAN PLT VOLUME 9.9 fl (7.5-11.1); PLATELET COUNT 227 K/MM3 (134-434); RBC 3.43 M/mm3 (3.60-5.2); RDW 14.9 % (11.6-15.6); WHITE BLOOD COUNT 10.3 K/mm3 (4.0-10.0)
--- NOTE | 2018-06-17 14:04 | PN ---
Physical Exam: SUBJECTIVE: Patient seen and examined this AM. She is seemingly at her baseline in no distress. Smiled when told that she could possibly go home today. OBJECTIVE: Vital Signs Period Temp Pulse Resp BP Sys/Torres Pulse Ox Last 24 Hr 97.1 F-98.7 F 59-77 18-20 112-164/62-94 96-96 GENERAL: alert though nonverbal, no acute distress HEAD: Some swelling still noted on upper lip EYES: PERRL, no scleral icterus EARS, NOSE, THROAT: Dry mucus membranes NECK: supple without lymphadenopathy LUNGS: CTA b/l, no crackles or wheezes HEART: Regular rate and rhythm, normal S1 and S2 without murmur ABDOMEN: Soft, mild grimace on palpation, normoactive bowel sounds MUSCULOSKELETAL: ROM in tact EXTREMITIES: 2+ pulses, warm, well-perfused. No peripheral edema. minimal erythema on anterior portion of ankle NEUROLOGICAL: Cranial nerves difficult to assess but grossly in tact. Nonverbal SKIN: Warm, dry, no rashes or lesions noted Laboratory Results - last 24 hr 06/17/18 06/17/18 06/17/18 06:30 09:30 11:56 WBC 10.3 H RBC 3.43 L Hgb 10.3 L Hct 31.2 L MCV 91.0 MCH 30.1 MCHC 33.1 RDW 14.9 Plt Count 227 MPV 9.9 Sodium Potassium Chloride Carbon Dioxide Anion Gap BUN Creatinine Creat Clearance w eGFR Random Glucose Calcium TSH 1.05 Urine Color Yellow Urine Appearance Clear Urine pH 5.0 Ur Specific [place] 1.025 Urine Protein Negative Urine Glucose (UA) Negative Urine Ketones Negative Urine Blood Negative Urine Nitrite Negative Urine Bilirubin Negative Urine Urobilinogen Negative Ur Leukocyte Esterase Negative 06/17/18 11:56 WBC RBC Hgb Hct MCV MCH MCHC RDW Plt Count MPV Sodium 149 H Potassium 4.1 Chloride 116 H Carbon Dioxide 27 Anion Gap 7 L BUN 29 H Creatinine 0.8 Creat Clearance w eGFR > 60 Random Glucose 109 H Calcium 8.6 TSH Urine Color Urine Appearance Urine pH Ur Specific [place] Urine Protein Urine Glucose (UA) Urine Ketones Urine Blood Urine Nitrite Urine Bilirubin Urine Urobilinogen Ur Leukocyte Esterase Active Medications Generic Name Dose Route Start Last Admin Trade Name Freq PRN Reason Stop Dose Admin Amlodipine Besylate 10 mg 06/16/18 10:00 06/17/18 09:21 Norvasc - PO 10 mg DAILY NABIL Administration Aspirin 81 mg 06/16/18 10:00 06/17/18 09:21 Asa - PO 81 mg DAILY NABIL Administration Atorvastatin Calcium 40 mg 06/15/18 22:00 06/16/18 23:37 Lipitor - PO 40 mg HS NABIL Administration Docusate Sodium 100 mg 06/15/18 17:00 Colace - PO Q12H PRN CONSTIPATION Enoxaparin Sodium 40 mg 06/16/18 15:30 06/17/18 09:20 Lovenox - SQ 40 mg DAILY NABIL Administration Famotidine/Sodium Chloride 20 mg in 50 mls @ 100 mls/hr 06/15/18 22:00 09:20 Pepcid 20 Mg Premixed Ivpb - IVPB 100 mls/hr BID NABIL Administration Lactated Ringer's 1,000 ml in 1,000 mls @ 75 mls/hr 06/17/18 08:00 06/17/18 09:21 Lactated Ringers Solution IV 75 mls/hr ASDIR NABIL Administration Levothyroxine Sodium 50 mcg 06/16/18 07:00 06/17/18 06:37 Synthroid - PO 50 mcg DAILY@0700 NABIL Administration Non-Formulary Medication 28 mg 06/16/18 10:00 Memantine Hcl [Namenda Xr] PO DAILY NABIL Polyethylene Glycol 17 gm 06/16/18 10:00 06/17/18 09:22 Miralax (For Daily Use) - PO 17 gm DAILY NABIL Administration Prednisone 40 mg 06/16/18 15:30 06/17/18 09:21 Deltasone - PO 40 mg DAILY NABIL Administration ASSESSMENT/PLAN: 78 yo F with PMHx Alzheimer's Dementia, Parkinson's, bradycardia, HLD, HTN, previous UTI, currently wheelchair bound admitted with change in mental status and found to have UTI. Acute Angioedema -exact cause unknown, though pt recently started on Depakote and Seroquel -On Lisinopril for many years -Hold Lisinopril, Depakote, and Seroquel -Neurology consult appreciated, monitor off depakote and seroquel, continue Namenda -Will require outpatient neurology f/u HyperNatremia -149 today, likely due to decreased PO Intake of fluids -LR @ 75 cc/hr overnight and likely DC tomorrow Alzheimer's Dimentia/Parkinson's -Continue Namenda 28 mg PO Daily -Hold Depakote 125 mg PO TID -Hold Seroquel 12.5 mg PO HS HLD -Lipitor 40 mg PO HS Hypothyroid -Synthroid 50 mcg PO AM HTN -HCTZ 12.5 mg PO Daily -DC lisinopril, Norvasc 10 mg PO Daily Wheelchair bound -ikely complication of her Parkinson's -PT did not recommend rehab placement on prior admission as it would likely not be beneficial for pt ambulatory status DVT Prophylaxis -Lovenox 40 mg SQ Daily FEN -Fluids: LR @ 75 cc/hr -Electrolytes: No electrolyte abnormalities, BMP in AM -Nutrition: Regular Diet with 2 ensures, Magic Cup with dinner Disposition DC likely in AM Visit type - Emergency Visit Emergency Visit: Yes ED Registration Date: 06/15/18 Care time: The patient presented to the Emergency Department on the above date and was hospitalized for further evaluation of their emergent condition. - New Patient This patient is new to me today: Yes Date on this admission: 06/17/18 - Critical Care Critical Care patient: No
[2018-06-17 16:09] VITALS: BMI 21.1
[2018-06-17] MEDS ORDERED: PT OWN MED DRAWER 7, Y5N ONE (20:28)
[2018-06-18] MEDS: ATORVASTATIN CA 40 MG TABLET (FP) PO SCH (00:03)
[2018-06-18] MEDS: LEVOTHYROXINE NA 50 MCG TABLET (FP) PO SCH (06:18)
[2018-06-18] MEDS: LACTATED RINGERS SOLUTION 1,000 ML/1,000 ML INFUS.BAG IV SCH (09:54)
[2018-06-18] MEDS: ENOXAPARIN NA (PORCINE) 40 MG/0.4 ML DISP.SYRIN SQ SCH (09:54)
[2018-06-18] MEDS: ASPIRIN 81 MG CHEWABLE TABLETS PO SCH (09:54)
[2018-06-18] MEDS: amLODIPine BESYLATE 10 MG TABLET (FP) PO SCH (09:54)
[2018-06-18] MEDS: FAMOTIDINE 20 MG/50 ML IVPB 20 MG/50 ML MG IVPB SCH (09:54)
[2018-06-18] MEDS: predniSONE 20 MG TABLET (UD) PO SCH (09:54)
[2018-06-18] MEDS: POLYETHYLENE GLYCOL 3350 119 GM BTL PO SCH (09:55)
--- NOTE | 2018-06-18 13:28 | PN ---
Progress Note, MESSAGING ARCHITECT - Note Progress Note: Selected Entries 06/17/18 06/17/18 06/17/18 01:00 05:00 09:00 Breakfast Lunch Supper Temperature 98.0 F 97.7 F 97.1 F L 06/17/18 06/17/18 06/17/18 11:57 15:22 18:00 Breakfast 75% Lunch 0 Supper Temperature 98.1 F 98.2 F 06/17/18 06/17/18 06/18/18 19:19 23:00 03:00 Breakfast Lunch Supper 50% Temperature 97.9 F 98.1 F 06/18/18 06/18/18 06/18/18 06:14 10:00 11:11 Breakfast 0 Lunch Supper Temperature 98.7 F 97.3 F L Laboratory Tests 06/16/18 06/17/18 07:00 11:56 WBC 12.8 H 10.3 H Slow PO acceptance and swallow initiation.
--- NOTE | 2018-06-18 13:28 | PN ---
Teaching Attending Note Name of Resident: Reggie Najera ATTENDING PHYSICIAN STATEMENT I saw and evaluated the patient. I reviewed the resident's note and discussed the case with the resident. I agree with the resident's findings and plan as documented. SUBJECTIVE: Patient appears comfortable lying in bed. OBJECTIVE: Vital Signs Period Temp Pulse Resp BP Sys/Torres Pulse Ox Last 24 Hr 97.3 F-98.7 F 54-96 18-21 125-164/60-88 96-98 HEART: S1S2, RRR LUNGS: Clear ABDOMEN: Soft, non-distended, normal BS EXTREMITIES: No edema Current Medications Generic Name Dose Route Start Last Admin Trade Name Freq PRN Reason Stop Dose Admin Amlodipine Besylate 10 mg 06/16/18 10:00 06/18/18 09:54 Norvasc - PO 10 mg DAILY NABIL Administration Aspirin 81 mg 06/16/18 10:00 06/18/18 09:54 Asa - PO 81 mg DAILY NABIL Administration Atorvastatin Calcium 40 mg 06/15/18 22:00 06/18/18 00:03 Lipitor - PO 40 mg HS NABIL Administration Docusate Sodium 100 mg 06/15/18 17:00 Colace - PO Q12H PRN CONSTIPATION Enoxaparin Sodium 40 mg 06/16/18 15:30 06/18/18 09:54 Lovenox - SQ 40 mg DAILY NABIL Administration Famotidine/Sodium Chloride 20 mg in 50 mls @ 100 mls/hr 06/15/18 22:00 09:54 Pepcid 20 Mg Premixed Ivpb - IVPB 100 mls/hr BID NABIL Administration Lactated Ringer's 1,000 ml in 1,000 mls @ 75 mls/hr 06/17/18 08:00 06/18/18 09:54 Lactated Ringers Solution IV Not Given ASDIR NABIL Levothyroxine Sodium 50 mcg 06/16/18 07:00 06/18/18 06:18 Synthroid - PO 50 mcg DAILY@0700 NABIL Administration Non-Formulary Medication 28 mg 06/16/18 10:00 Memantine Hcl [Namenda Xr] PO DAILY NABIL Polyethylene Glycol 17 gm 06/16/18 10:00 06/18/18 09:55 Miralax (For Daily Use) - PO 17 gm DAILY NABIL Administration Prednisone 40 mg 06/16/18 15:30 06/18/18 09:54 Deltasone - PO 40 mg DAILY NABIL Administration ASSESSMENT AND PLAN: This is a 78 year old woman with a history of Parkinson disease, dementia, HTN, hyperlipidemia, anemia, UTIs, bradycardia who presented to the ED with swelling of her lips and tongue. 1. Acute angioedema - Improved - Likely secondary to medication - Seroquel, Depakote were started 2 weeks ago - She has been taking lisinopril for 9 years - Seroquel, Depakote, lisinopril discontinued - Benadryl, Pepcid, SoluMedrol, FFP given in ED - Continue Pepcid, Prednisone - Outpatient ENT follow up 2. Hypernatremia - Possibly secondary to dehydration (high BUN:creatinine) - IV LR started yesterday - Daughter refused additional blood draws - she understands and accepts the risks of hypernatremia 3. Parkinson's disease with dementia - Continue Namenda - Seroquel, Depakote held secondary to angioedema 4. HTN - Lisinopril discontinued secondary to angioedema - Continue Norvasc 5. Hyperlipidemia - Continue Lipitor 6. Hypothyroidism - Continue Synthroid 7. Anemia 8. Disposition - Discharge home with daughter today
--- NOTE | 2018-06-18 14:21 | DS ---
Physical Exam: SUBJECTIVE: Patient seen and examined this AM. She seems at her baseline and is in no distress. OBJECTIVE: Vital Signs Period Temp Pulse Resp BP Sys/Torres Pulse Ox Last 24 Hr 97.3 F-98.7 F 54-96 18-21 125-164/60-88 96-100 PHYSICAL EXAM GENERAL: alert though nonverbal, no acute distress HEAD: Some swelling still noted on upper lip EYES: PERRL, no scleral icterus EARS, NOSE, THROAT: Dry mucus membranes NECK: supple without lymphadenopathy LUNGS: CTA b/l, no crackles or wheezes HEART: Regular rate and rhythm, normal S1 and S2 without murmur ABDOMEN: Soft, mild grimace on palpation, normoactive bowel sounds MUSCULOSKELETAL: ROM in tact EXTREMITIES: 2+ pulses, warm, well-perfused. No peripheral edema. minimal erythema on anterior portion of ankle NEUROLOGICAL: Cranial nerves difficult to assess but grossly in tact. Nonverbal SKIN: Warm, dry, no rashes or lesions noted LABS HOSPITAL COURSE: Date of Admission:06/15/18 Date of Discharge: 06/18/18 HPI on Admission: Patient is a 78 year old female brought in by daughter via EMS with the chief complaint of swelling of tongue and lips x 1 day. As per the daughter, she was apparently well until 2 days ago, then started developing lip swelling. This morning when she woke up, the swelling of lips/tongue got worse, had drooling of saliva. Hence brought in to the ED for further evaluation. Denies shortness of breath, nausea, vomiting, fever, rigors or sweating. Patient was recently admitted at [facility] 06/04/18-06/11/18 for Urinary tract infection E. fecalis and treated with IV Levaquin. The newer medication that was added was Depakote and Seroquel. Patient has been on Lisinopril for 9 yrs without any issues. No other newer medication or food within the past week. Last bowel movement was yesterday. Bladder habit normal. Sleep normal. Appetite : low appetite. In the ED, she was evaluated by ENT today. Oropharynx, hypophayrnx, and larynx were patent and there was no signs of respiratory distress. Hospital course: She was seen by neurology who also agreed Depakote and Seroquel could be held in addition to holding her lisinopril. She was started on Norvasc 10 mg PO Daily instead of the lisinopril. She was given steroids which improved her angioedema. She was discharged with 2 additional days of PO Prednisone. She was instructed to follow up with neurology as her depakote and seroquel were held. Minutes to complete discharge: 35 Discharge Summary Reason For Visit: ANGIOEDEMA Current Active Problems Angioedema (Acute) Condition: Stable - Instructions Diet, Activity, Other Instructions: You were admitted with swelling in your face and lips. It was likely due to a medication that you were recently started on. These medications were held and you were given steroids which improved your symptoms. You should stop taking Seroquel, Lisinopril, and Depakote as it is not sure at this time which medication caused your swelling. You should take 2 more days of Prednisone 40 mg once per day, this has been sent to your pharmacy. Your blood pressure medication was switched from the Lisinopril to Norvasc. You should stop taking the lisinopril and start taking Norvasc 10 mg by mouth daily. This medication has been sent to your pharmacy. You should otherwise continue all of your medications as they are prescribed. You should follow up with your primary care physician in one week. You should follow up with Dr. Keene within 1 week of discharge for further management, especially as the Seroquel and Depakote are not being given. If you have any worsening swelling, difficulty breathing, or any other concerning symptoms, you should be seen by your doctor or return to the emergency department. Referrals: Talon Gonsalez MD [Primary Care Provider] - Eugene Keene MD [Staff Physician] - Disposition: HOME - Home Medications Comprehensive Discharge Medication List: Ambulatory Orders Aspirin [ASA -] 81 mg PO DAILY 04/17/17 Atorvastatin Ca [Lipitor] 40 mg PO HS 04/17/17 Levothyroxine [Synthroid -] 50 mcg PO DAILY 04/17/17 Memantine HCl [Namenda Xr] 28 mg PO DAILY 04/17/17 Amlodipine Besylate [Norvasc -] 10 mg PO DAILY #30 tablet 06/17/18 Divalproex [Depakote -] 125 mg PO TID 06/17/18 Lisinopril 20 mg PO DAILY 06/17/18 Polyethylene Glycol 3350 [Miralax 119 gm Btl -] 17 g PO PRN PRN 06/17/18 Quetiapine Fumarate [Seroquel -] 25 mg PO HS 06/17/18 predniSONE [Deltasone -] 40 mg PO DAILY #4 tablet 06/18/18 This patient is new to me today: No Emergency Visit: Yes ED Registration Date: 06/15/18 Care time: The patient presented to the Emergency Department on the above date and was hospitalized for further evaluation of their emergent condition. Critical Care patient: No - Discharge Referral Referred to [facility] No
[2018-06-18 18:49] VITALS: BP 139/82; PULSE 74; TEMP 98.2
== END 2018-06-18 19:02 | disposition home or self-care (01) ==
LOC: JER 11:18 → JERBED 13:48 → J7W 15:25
PROVIDERS: ADMIT Internal Medicine; ATTEND Internal Medicine
PROC: 3E033NZ Introduction of Analgesics, Hypnotics, Sedatives into Peripheral Vein, Percutaneous Approach (ICD-10-PCS; principal; 2018-06-15)
PROC: 3E0337Z Introduction of Electrolytic and Water Balance Substance into Peripheral Vein, Percutaneous Approach (ICD-10-PCS; 2018-06-15)
PROC: 3E033GC Introduction of Other Therapeutic Substance into Peripheral Vein, Percutaneous Approach (ICD-10-PCS; 2018-06-15)
PROC: 3E013GC Introduction of Other Therapeutic Substance into Subcutaneous Tissue, Percutaneous Approach (ICD-10-PCS; 2018-06-15)
DX: T78.3XXA Angioneurotic edema, initial encounter (principal); G30.9 Alzheimer's disease, unspecified; G20 Parkinson's disease; F02.81 Dementia in other diseases classified elsewhere, unspecified severity, with behavioral disturbance; I10 Essential (primary) hypertension; E78.5 Hyperlipidemia, unspecified; E03.9 Hypothyroidism, unspecified; K59.00 Constipation, unspecified; R13.10 Dysphagia, unspecified; R26.89 Other abnormalities of gait and mobility; Z99.3 Dependence on wheelchair; E87.0 Hyperosmolality and hypernatremia; Z87.440 Personal history of urinary (tract) infections; Z79.82 Long term (current) use of aspirin
CPT/HCPCS: 36415; 36430; 80048; 80053; 81003; 83735; 84443; 85025; 85027; 87086; 96365; 96372; 96375; 96376; 99282-25; G0378; J7030; P9017

== ENCOUNTER 2018-07-19 11:42 | Inpatient (IN) | payer OTHER ==
--- NOTE | 2018-07-19 12:08 | PDOC ---
History of Present Illness - General Chief Complaint: Loss of Appetite Stated Complaint: NO APPETITE Time Seen by Provider: 07/19/18 12:07 - History of Present Illness Initial Comments: 78yo F with PMH of Parkinson's, Alzheimer's, HTN, HLD, Hypothyroid, Behavioral disturbance on seroquel and depakote, bradycardia coming from home for poor appetite. Patient is nonverbal at baseline and has minimal communicative ability with gestures. Patient's daughter is at the bedside providing collateral history. She states that for the past three weeks, the patient has been less active. In the past three days, patient has failed to take any po intake whatsoever. Her daughter will place pureed food in her mouth but it will just sit there and not be swallowed. She was, however, able to swallow her blood pressure medications today. Her daughter has not noticed any overt signs of pain, except from some grimacing upon manipulation of the patient's right knee. In consultation with the primary care provider, patient was recommended for SNF or G-tube placement. The daughter is not amenable to SNF. Denies fevers or chills. Past History - Past Medical History Allergies/Adverse Reactions: Allergies Allergy/AdvReac Type Severity Reaction Status Date / Time strawberry Allergy Mild Hives Verified 07/19/18 11:56 tomato Allergy Mild Hives Verified 07/19/18 11:56 divalproex sodium Allergy Verified 07/19/18 11:56 [From Depakote] lisinopril Allergy Verified 07/19/18 11:56 No Known Drug Allergies Allergy Verified 07/19/18 11:56 quetiapine [From Seroquel] Allergy Verified 07/19/18 11:56 Home Medications: Ambulatory Orders Aspirin [ASA -] 81 mg PO DAILY 04/17/17 Atorvastatin Ca [Lipitor] 40 mg PO HS 04/17/17 Levothyroxine [Synthroid -] 50 mcg PO DAILY 04/17/17 Memantine HCl [Namenda Xr] 28 mg PO DAILY 04/17/17 Amlodipine Besylate [Norvasc -] 10 mg PO DAILY #30 tablet 06/17/18 Divalproex [Depakote -] 125 mg PO TID 06/17/18 Lisinopril 20 mg PO DAILY 06/17/18 Polyethylene Glycol 3350 [Miralax 119 gm Btl -] 17 g PO PRN PRN 06/17/18 Quetiapine Fumarate [Seroquel -] 25 mg PO HS 06/17/18 predniSONE [Deltasone -] 40 mg PO DAILY #4 tablet 06/18/18 Cardiac Disorders: Yes (bradycardia) COPD: No Dementia: Yes ([place]HEIMERS.) Disorders: (UTI) HTN: Yes Hypercholesterolemia: Yes Thyroid Disease: Yes (hypothyroid) - Suicide/Smoking/Psychosocial Hx Smoking History: Never smoked Have you smoked in the past 12 months: No Information on smoking cessation initiated: No Hx Alcohol Use: No Drug/Substance Use Hx: No Substance Use Type: None Hx Substance Use Treatment: No Review of Systems - Review of Systems Able to Perform ROS?: No (pt nonverbal) *Physical Exam - Vital Signs Last Vital Signs Temp Pulse Resp BP Pulse Ox 97.7 F 76 18 139/78 100 07/19/18 11:57 07/19/18 11:57 07/19/18 11:57 07/19/18 11:57 07/19/18 11:57 - Physical Exam Comments: General: Lethargy, but arousable Head: No signs of trauma Eyes: EOMI, sclera anicteric ENT: Dry mucus membranes Neck: Supple Lungs: Lungs clear, Normal breath sounds Cardio: Regular rhythm, S1 and S2 present Abdomen: Soft, nontender, nondistended. No guarding, no rebound, no masses Extremities: Distal pulses present, slight SKIN: Warm, Dry, normal turgor; no ulcers Neurologic: Patient nonverbal and nonambulatory, unable to follow commands Moderate Sedation - Procedure Monitoring Vital Signs: Procedure Monitoring Vital Signs Temperature 97.7 F 07/19/18 11:57 Pulse Rate 76 07/19/18 11:57 Respiratory Rate 18 07/19/18 11:57 Blood Pressure 139/78 07/19/18 11:57 O2 Sat by Pulse Oximetry (%) 100 07/19/18 11:57 ED Treatment Course - LABORATORY CBC & Chemistry Diagram: 07/19/18 13:35 07/19/18 13:35 Medical Decision Making - Medical Decision Making 78yo F with PMH of Parkinson's, Alzheimer's, HTN, HLD, Hypothyroid, Behavioral disturbance on seroquel and depakote, bradycardia coming from home for poor appetite. DDX including but not limited to anemia, dysphagia, dental pain, failure to thrive Labs, CXR, EKG 500 cc fluid bolus 07/19/18 12:53 Hypernatremia, [id number] Another 500cc bolus ordered Plan to admit 07/19/18 14:44 UTI treated with 1g Rocephin Discussed case with Dr. Vela who accepted patient for admission. 07/19/18 15:05 *DC/Admit/Observation/Transfer Diagnosis at time of Disposition: Hypernatremia - Discharge Dispostion Condition at time of disposition: Guarded Decision to Admit order: Yes - Referrals - Patient Instructions - Post Discharge Activity
[2018-07-19] MEDS ORDERED: SODIUM CHLORIDE 500 ML IV STA ×2 (12:54→14:16)
[2018-07-19 13:29] LABS: URINE APPEARANCE SLCLOUDY; URINE BILIRUBIN NEGATIVE (<2.0 mg/dL); URINE COLOR DKYELLOW; URINE GLUCOSE (UA) NEGATIVE (NEGATIVE); URINE KETONE NEGATIVE (NEGATIVE); URINE LEUK ESTERASE 1+ (NEGATIVE); URINE NITRITE POSITIVE (NEGATIVE); URINE PROTEIN NEGATIVE (NEGATIVE)
[2018-07-19 13:33] LABS: EPI CELLS RARE /HPF (FEW); URINE BACTERIA MANY /hpf (NONE SEEN); URINE MUCUS RARE
--- NOTE | 2018-07-19 13:46 | PDOC ---
Attending Attestation - Resident Resident Name: Christie Bernal - ED Attending Attestation I have performed the following: I have examined & evaluated the patient, The case was reviewed & discussed with the resident, I agree w/resident's findings & plan, Exceptions are as noted - HPI HPI: 07/19/18 13:45 The patient is a 78 year old female, with a past medical history of Parkinsons , Alzheimer's dementia (non-verbal @ baseline), HTN on lisinopril for years, HLD , hypothyroidism, who presents to the emergency department with poor PO intake. As per patients daughter at bedside, for the past 3 weeks the patient has been having decreased PO intake with increased lethargy. Over the past 3 days, she has taken no PO at all. Daughter denies any recent fevers. No vomiting. No diarrhea. Pt was sent in by Dr. Gonsalez for possible feeding tube. Allergies: [place], tomato. Past surgical history: None reported. Social history: Lives with daughter and has 2 at home aids. - Physicial Exam PE: 07/19/18 13:46 GENERAL: Somnolent but arousable, in no acute distress. HEAD: No signs of trauma EYES: PERRLA, EOMI, sclera anicteric, conjunctiva clear ENT: Auricles normal inspection, hearing grossly normal, nares patent, oropharynx clear without exudates. Moist mucosa NECK: Nontender, no stepoffs, Normal ROM, supple, no lymphadenopathy, JVD, or masses LUNGS: Breath sounds equal, clear to auscultation bilaterally. No wheezes, and no crackles HEART: Regular rate and rhythm, normal S1 and S2, no murmurs, rubs or gallops ABDOMEN: Soft, nontender, normoactive bowel sounds. No guarding, no rebound. No masses EXTREMITIES: Normal range of motion, no edema. No clubbing or cyanosis. No cords, erythema, or tenderness NEUROLOGICAL: Cranial nerves II through XII intact. SKIN: Warm, Dry, normal turgor, no rashes or lesions noted. - Medical Decision Making 07/19/18 13:47 78 F with FTT, poor PO intake x 3 weeks. Pt HD stable but very dry on exam. - Labs - IV hydration - Admit 07/19/18 14:18 Na 165 Pt given total 1L NS bolus over 2 hours Will admit to hospitalist 07/19/18 15:04 Ceftriaxone ordered for UTI Page sent out to Clar[facility] Pt admitted to hospitalist <Darion Gonzalez - Last Filed: 07/19/18 15:04> - Medical Decision Making 07/19/18 14:[address] Gonsalez's (patient's PCP) answering service to make aware of upcoming admission; awaiting call back. 15:08 Second call placed to Dr. Gosnalez's (patient's PCP) answering service to make aware of upcoming admission; awaiting call back. <Falguni Alanis - Last Filed: 07/19/18 15:09> Attestations - Attestations 07/19/18 14:48 Documentation prepared by Falguni Alanis, acting as medical care administrator for Darion Gonzalez MD. <Falguni Alanis - Last Filed: 07/19/18 15:09>
[2018-07-19 14:00] LABS: EOS % 0.5 % (0-4.5); HEMATOCRIT 41.3 % (32.4-45.2); HEMOGLOBIN 13.1 GM/dL (10.7-15.3); LYMPH % 16.2 % (8-40); MCH 29.8 pg (25.7-33.7); MCHC 31.9 g/dl (32.0-36.0); MEAN CELL VOLUME 93.6 fl (80-96); MEAN PLT VOLUME 10.4 fl (7.5-11.1); MONO % 5.2 % (3.8-10.2); NEUT % 77.1 % (42.8-82.8); PLATELET COUNT 210 K/MM3 (134-434); RBC 4.41 M/mm3 (3.60-5.2); RDW 16.7 % (11.6-15.6); WHITE BLOOD COUNT 8.2 K/mm3 (4.0-10.0)
[2018-07-19 14:15] LABS: ALBUMIN 3.5 g/dl (3.4-5.0); ALK PHOS 155 U/L (45-117); ANION GAP 4 MMOL/L (8-16); BILIRUBIN,TOTAL 0.5 mg/dL (0.2-1); BLOOD UREA NITROGEN 33 mg/dL (7-18); CALCIUM 9.2 mg/dL (8.5-10.1); CHLORIDE 132 mmol/L (98-107); CO2 29 mmol/L (21-32); CREATININE 1.1 mg/dL (0.55-1.3); GLUCOSE,RANDOM 91 mg/dL (74-106); POTASSIUM 3.5 mmol/L (3.5-5.1); SGOT/AST 27 U/L (15-37); SGPT/ALT 20 U/L (13-61); TOT PROT 8.2 g/dl (6.4-8.2)
[2018-07-19 14:16] LABS: SODIUM 165 mmol/L (136-145)
[2018-07-19] MEDS ORDERED: CEFTRIAXONE 1,000 MG in DEXTROSE 5%-WATER - 50 ML IVPB ONE (14:53)
[2018-07-19] MEDS ORDERED: CEFTRIAXONE 1 GM/50 ML BAG ONE (15:14)
[2018-07-19] MEDS ORDERED: ACETAMINOPHEN 325 MG TABLET (FP) PO PRN (15:35)
[2018-07-19] MEDS ORDERED: FLUCONAZOLE 200 MG/NS 100 ML IVPB ONE (15:40)
--- NOTE | 2018-07-19 15:42 | HP ---
Admitting History and Physical - Primary Care Physician PCP: Talon Gonsalez - Admission Chief Complaint: unable to obtain History of Present Illness: Ms Ng is a 78 year old female with Alzheimers dementia and Parkinsons who presents from home with her daughter for lethargy and anorexia. Daughter states that 3 weeks ago patient began to appear more tired than usual but was still interacting at baseline. However 3 days ago she became very tired and stopped eating and drinking. Daughter states she would put food in Ms Ng's mouth but the patient would push it out. Because of this she brought her in. She denies patient having fevers, coughing, throwing up, diarrhea, foul smelling urine, or swelling. 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 Cardiovascular: Yes: HTN - Past Surgical History Past Surgical History: Yes: None - Smoking History Smoking history: Never smoked Have you smoked in the past 12 months: No - Alcohol/Substance Use Hx Alcohol Use: No History of Substance Use: reports: None - Social History Usual Living Arrangement: Yes: With Child ADL: Family Assistance History of Recent Travel: No Home Medications - Allergies Allergies/Adverse Reactions: Allergies Allergy/AdvReac Type Severity Reaction Status Date / Time strawberry Allergy Mild Hives Verified 07/19/18 11:56 tomato Allergy Mild Hives Verified 07/19/18 11:56 divalproex sodium Allergy Verified 07/19/18 11:56 [From Depakote] lisinopril Allergy Verified 07/19/18 11:56 No Known Drug Allergies Allergy Verified 07/19/18 11:56 quetiapine [From Seroquel] Allergy Verified 07/19/18 11:56 - Home Medications Home Medications: Ambulatory Orders Aspirin [ASA -] 81 mg PO DAILY 04/17/17 Atorvastatin Ca [Lipitor] 40 mg PO HS 04/17/17 Levothyroxine [Synthroid -] 50 mcg PO DAILY 04/17/17 Memantine HCl [Namenda Xr] 28 mg PO DAILY 04/17/17 Amlodipine Besylate [Norvasc -] 10 mg PO DAILY #30 tablet 06/17/18 Divalproex [Depakote -] 125 mg PO TID 06/17/18 Lisinopril 20 mg PO DAILY 06/17/18 Polyethylene Glycol 3350 [Miralax 119 gm Btl -] 17 g PO PRN PRN 06/17/18 Quetiapine Fumarate [Seroquel -] 25 mg PO HS 06/17/18 predniSONE [Deltasone -] 40 mg PO DAILY #4 tablet 06/18/18 Family Disease History - Family Disease History Family Disease History: Other: Daughter (HTN) Other Family History: daughter states multiple family members have hypertension Review of Systems Unable to obtain ROS, reason: dementia Physical Examination Vital Signs: Vital Signs Temperature 36.5 C 07/19/18 11:57 Pulse Rate 76 07/19/18 11:57 Respiratory Rate 18 07/19/18 11:57 Blood Pressure 139/78 07/19/18 11:57 O2 Sat by Pulse Oximetry (%) 100 07/19/18 11:57 Constitutional: Yes: Well Nourished, No Distress, Calm Eyes: Yes: Conjunctiva Clear, PERRL HENT: Yes: Atraumatic, Normocephalic, Thrush Cardiovascular: Yes: Regular Rate and Rhythm. No: Gallop, Murmur, Rub Respiratory: Yes: Regular, CTA Bilaterally. No: Rales, Rhonchi, Wheezes Gastrointestinal: Yes: Normal Bowel Sounds, Soft. No: Distention, Tenderness Extremities: Yes: WNL Edema: No Labs: CBC, BMP 07/19/18 13:35 07/19/18 13:35 Imaging - Results Chest X-ray: Report Reviewed, Image Reviewed X-ray: Report Reviewed Problem List - Problems (1) Hypernatremia Assessment/Plan: -patient with 4L water deficit -want to correct over 50 hours -begin D5W @ 83 ml/hr, this should correct over 50 hours -check bmp at 10pm Code(s): E87.0 - HYPEROSMOLALITY AND HYPERNATREMIA (2) UTI (urinary tract infection) Assessment/Plan: -give rocephin in the ED -will continue -follow up cultures Code(s): N39.0 - URINARY TRACT INFECTION, SITE NOT SPECIFIED Qualifiers: Urinary tract infection type: acute cystitis Hematuria presence: without hematuria Qualified Code(s): N30.00 - Acute cystitis without hematuria (3) Acute metabolic encephalopathy Assessment/Plan: -secondary to hypernatremia and UTI -treat as above -will keep npo currently -speech therapy consult Code(s): G93.41 - METABOLIC ENCEPHALOPATHY (4) HTN (hypertension) Code(s): I10 - ESSENTIAL (PRIMARY) HYPERTENSION (5) Hypothyroid Assessment/Plan: -continue synthroid Code(s): E03.9 - HYPOTHYROIDISM, UNSPECIFIED (6) HLD (hyperlipidemia) Assessment/Plan: -continue statin Code(s): E78.5 - HYPERLIPIDEMIA, UNSPECIFIED (7) Alzheimer's dementia Assessment/Plan: -continue namenda Code(s): G30.9 - ALZHEIMER'S DISEASE, UNSPECIFIED Qualifiers: Alzheimer's disease onset: other onset Dementia behavioral disturbance: without behavioral disturbance Qualified Code(s): G30.8 - Other Alzheimer's disease (8) Thrush, oral Assessment/Plan: -give dose of IV diflucan Code(s): B37.0 - CANDIDAL STOMATITIS
[2018-07-19] MEDS: DEXTROSE 5%-WATER - 1,000 ML IV SCH ×2 (16:43→17:59)
[2018-07-19 17:39] VITALS: BMI 23.1
--- NOTE | 2018-07-19 21:59 | EKG ---
Test Reason : Blood Pressure : / mmHG Vent. Rate : 073 BPM Atrial Rate : 073 BPM P-R Int : 102 ms QRS Dur : 084 ms QT Int : 358 ms P-R-T Axes : 076 081 -74 degrees QTc Int : 394 ms SINUS RHYTHM WITH SHORT PA ABNORMAL ECG WHEN COMPARED WITH ECG OF 02-JUN-2018 15:49, Confirmed by VINCENT YE MD ([id number]) on 07/19/2018 9:58:27 PM Referred By: Confirmed By:VINCENT YE MD
[2018-07-19 22:37] LABS: ANION GAP 6 MMOL/L (8-16); BLOOD UREA NITROGEN 27 mg/dL (7-18); CALCIUM 8.7 mg/dL (8.5-10.1); CHLORIDE 133 mmol/L (98-107); CO2 27 mmol/L (21-32); GLUCOSE,RANDOM 92 mg/dL (74-106); POTASSIUM 3.3 mmol/L (3.5-5.1)
[2018-07-19 22:47] LABS: SODIUM 165 mmol/L (136-145)
[2018-07-20] MEDS: DEXTROSE 5%-WATER - 1,000 ML IV SCH (00:23)
[2018-07-20] MEDS: LEVOTHYROXINE NA 50 MCG TABLET (FP) PO SCH (06:11)
[2018-07-20 06:17] LABS: ANION GAP 5 MMOL/L (8-16); BLOOD UREA NITROGEN 25 mg/dL (7-18); CALCIUM 8.3 mg/dL (8.5-10.1); CHLORIDE 131 mmol/L (98-107); CO2 27 mmol/L (21-32); GLUCOSE,RANDOM 115 mg/dL (74-106)
[2018-07-20] MEDS: KCL 10 MEQ IVPB 10 MEQ/100 ML INFUS.BAG IVPB SCH ×2 (06:48→08:33)
[2018-07-20 07:52] LABS: SODIUM 163 mmol/L (136-145)
[2018-07-20] MEDS ORDERED: PATIENT'S OWN MEDICATION (NON-FORMULARY) (Memantine Hcl [Namenda Xr] 28 MG) PO SCH (10:00)
[2018-07-20] MEDS ORDERED: cefTRIAXone SODIUM 1 GM VIAL ONE (10:26)
[2018-07-20] MEDS ORDERED: DEXTROSE 5%-WATER - 50 ML IVPB ONE (10:26)
[2018-07-20] MEDS: ASPIRIN 81 MG CHEWABLE TABLETS PO SCH (10:32)
[2018-07-20] MEDS: ENOXAPARIN NA (PORCINE) 40 MG/0.4 ML DISP.SYRIN SQ SCH (10:32)
[2018-07-20 11:10] LABS: BASO % 0.6 % (0-2.0); EOS % 1.5 % (0-4.5); HEMATOCRIT 35.8 % (32.4-45.2); HEMOGLOBIN 11.3 GM/dL (10.7-15.3); LYMPH % 22.1 % (8-40); MCH 29.8 pg (25.7-33.7); MCHC 31.7 g/dl (32.0-36.0); MEAN CELL VOLUME 93.9 fl (80-96); MEAN PLT VOLUME 10.2 fl (7.5-11.1); MONO % 4.6 % (3.8-10.2); NEUT % 71.2 % (42.8-82.8); PLATELET COUNT 153 K/MM3 (134-434); RBC 3.81 M/mm3 (3.60-5.2); RDW 16.5 % (11.6-15.6); WHITE BLOOD COUNT 8.1 K/mm3 (4.0-10.0)
[2018-07-20 11:57] LABS: ANION GAP 6 MMOL/L (8-16); BLOOD UREA NITROGEN 23 mg/dL (7-18); CALCIUM 8.8 mg/dL (8.5-10.1); CHLORIDE 128 mmol/L (98-107); CO2 28 mmol/L (21-32); GLUCOSE,RANDOM 86 mg/dL (74-106); MAGNESIUM 2.3 mg/dL (1.8-2.4); PHOSPHOROUS 3.5 mg/dL (2.5-4.9); POTASSIUM 3.1 mmol/L (3.5-5.1)
[2018-07-20 12:29] LABS: SODIUM 162 mmol/L (136-145)
--- NOTE | 2018-07-20 14:28 | PN ---
Progress Note, Physician Chief Complaint: Unable to obtain - Current Medication List Current Medications: Active Medications Acetaminophen (Tylenol -) 650 mg PO Q4H PRN PRN Reason: FEVER Aspirin (Asa -) 81 mg PO DAILY [facility] Last Admin: 07/20/18 10:32 Dose: Not Given Enoxaparin Sodium (Lovenox -) 40 mg SQ DAILY [facility] Last Admin: 07/20/18 10:32 Dose: 40 mg Ceftriaxone Sodium 1 gm/ (Dextrose) 50 mls @ 100 mls/hr IVPB DAILY [facility]; Protocol Dextrose (D5w -) 1,000 mls @ 100 mls/hr IV ASDIR [facility] Last Admin: 07/20/18 00:23 Dose: 100 mls/hr Levothyroxine Sodium (Synthroid -) 50 mcg PO DAILY@0700 [facility] Last Admin: 07/20/18 06:11 Dose: Not Given Non-Formulary Medication (Memantine Hcl [Namenda Xr]) 28 mg PO DAILY [facility] - Objective Vital Signs: Vital Signs Temperature 36.8 C 07/20/18 09:58 Pulse Rate 60 07/20/18 09:58 Respiratory Rate 20 07/20/18 09:58 Blood Pressure 124/50 L 07/20/18 09:58 O2 Sat by Pulse Oximetry (%) 99 07/19/18 16:35 Constitutional: Yes: Well Nourished, No Distress, Calm Cardiovascular: Yes: Regular Rate and Rhythm. No: Gallop, Murmur, Rub Respiratory: Yes: Regular, CTA Bilaterally. No: Rales, Rhonchi, Wheezes Gastrointestinal: Yes: Normal Bowel Sounds, Soft. No: Distention, Tenderness Extremities: Yes: WNL Edema: No Labs: CBC, BMP 07/20/18 10:45 07/20/18 10:45 Problem List - Problems (1) Hypernatremia Code(s): E87.0 - HYPEROSMOLALITY AND HYPERNATREMIA (2) UTI (urinary tract infection) Code(s): N39.0 - URINARY TRACT INFECTION, SITE NOT SPECIFIED Qualifiers: Urinary tract infection type: acute cystitis Hematuria presence: without hematuria Qualified Code(s): N30.00 - Acute cystitis without hematuria (3) Acute metabolic encephalopathy Code(s): G93.41 - METABOLIC ENCEPHALOPATHY (4) HTN (hypertension) Code(s): I10 - ESSENTIAL (PRIMARY) HYPERTENSION (5) Hypothyroid Code(s): E03.9 - HYPOTHYROIDISM, UNSPECIFIED (6) HLD (hyperlipidemia) Code(s): E78.5 - HYPERLIPIDEMIA, UNSPECIFIED (7) Alzheimer's dementia Code(s): G30.9 - ALZHEIMER'S DISEASE, UNSPECIFIED Qualifiers: Alzheimer's disease onset: other onset Dementia behavioral disturbance: without behavioral disturbance Qualified Code(s): G30.8 - Other Alzheimer's disease (8) Thrush, oral Code(s): B37.0 - CANDIDAL STOMATITIS Assessment/Plan (1) Hypernatremia Assessment/Plan: -improving at expected rate -continue D5W @ 100ml/hr Code(s): E87.0 - HYPEROSMOLALITY AND HYPERNATREMIA (2) UTI (urinary tract infection) Assessment/Plan: -continue rocephin day 2 -follow up cultures Code(s): N39.0 - URINARY TRACT INFECTION, SITE NOT SPECIFIED Qualifiers: Urinary tract infection type: acute cystitis Hematuria presence: without hematuria Qualified Code(s): N30.00 - Acute cystitis without hematuria (3) Acute metabolic encephalopathy Assessment/Plan: -continue npo currently -speech therapy consult Code(s): G93.41 - METABOLIC ENCEPHALOPATHY (4) HTN (hypertension) -controlled -considering age and comorbidities, does not need intense control Code(s): I10 - ESSENTIAL (PRIMARY) HYPERTENSION (5) Hypothyroid Assessment/Plan: -continue synthroid when safe to take po -synthroid with long half life, does not need IV yet Code(s): E03.9 - HYPOTHYROIDISM, UNSPECIFIED (6) HLD (hyperlipidemia) Assessment/Plan: -continue statin Code(s): E78.5 - HYPERLIPIDEMIA, UNSPECIFIED (7) Alzheimer's dementia Assessment/Plan: -continue namenda Code(s): G30.9 - ALZHEIMER'S DISEASE, UNSPECIFIED Qualifiers: Alzheimer's disease onset: other onset Dementia behavioral disturbance: without behavioral disturbance Qualified Code(s): G30.8 - Other Alzheimer's disease (8) Thrush, oral Assessment/Plan: -s/p diflucan Code(s): B37.0 - CANDIDAL STOMATITIS
[2018-07-20] MEDS: CEFTRIAXONE 1 GM in DEXTROSE 5%-WATER - 50 ML IVPB SCH (15:24)
[2018-07-21] MEDS: DEXTROSE 5%-WATER - 1,000 ML IV SCH ×2 (05:55→19:03)
[2018-07-21] MEDS: LEVOTHYROXINE NA 50 MCG TABLET (FP) PO SCH (06:07)
[2018-07-21 07:18] LABS: BASO % 0.6 % (0-2.0); EOS % 1.5 % (0-4.5); HEMATOCRIT 33.7 % (32.4-45.2); LYMPH % 24.6 % (8-40); MCH 30.4 pg (25.7-33.7); MCHC 32.8 g/dl (32.0-36.0); MEAN CELL VOLUME 92.9 fl (80-96); MEAN PLT VOLUME 10.4 fl (7.5-11.1); MONO % 5.4 % (3.8-10.2); NEUT % 67.9 % (42.8-82.8); PLATELET COUNT 135 K/MM3 (134-434); RBC 3.62 M/mm3 (3.60-5.2); RDW 16.3 % (11.6-15.6); WHITE BLOOD COUNT 7.3 K/mm3 (4.0-10.0)
[2018-07-21 08:20] LABS: ANION GAP 4 MMOL/L (8-16); BLOOD UREA NITROGEN 21 mg/dL (7-18); CALCIUM 8.4 mg/dL (8.5-10.1); CHLORIDE 123 mmol/L (98-107); CO2 28 mmol/L (21-32); CREATININE 0.8 mg/dL (0.55-1.3); GLUCOSE,RANDOM 91 mg/dL (74-106); MAGNESIUM 2.4 mg/dL (1.8-2.4); PHOSPHOROUS 3.4 mg/dL (2.5-4.9); POTASSIUM 3.1 mmol/L (3.5-5.1); SODIUM 155 mmol/L (136-145)
--- NOTE | 2018-07-21 08:53 | CON.GI ---
Consult Consult Specialty:: GI Referred by:: Dr. Davey Vela - History of Present Illness Chief Complaint: Poor PO intake History of Present Illness: Patient is a 78 y/o female with past medical history of Alzheimer Dementia and Parkinson's Disease. She was brought to ER by her daughter for increased lethargy and poor PO intake. Patient was diagnosed with UTI and currently on IV ceftriaxone. I was consulted for possible PEG tube placement due to poor PO intake. 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 Cardio/Vascular: Yes: HTN ...: No - Past Surgical History Past Surgical History: Yes: None - Alcohol/Substance Use Hx Alcohol Use: No History of Substance Use: reports: None - Smoking History Smoking history: Never smoked Have you smoked in the past 12 months: No - Social History ADL: Family Assistance History of Recent Travel: No Home Medications - Allergies Allergies/Adverse Reactions: Allergies Allergy/AdvReac Type Severity Reaction Status Date / Time strawberry Allergy Mild Hives Verified 07/19/18 11:56 tomato Allergy Mild Hives Verified 07/19/18 11:56 divalproex sodium Allergy Verified 07/19/18 11:56 [From Depakote] lisinopril Allergy Verified 07/19/18 11:56 No Known Drug Allergies Allergy Verified 07/19/18 11:56 quetiapine [From Seroquel] Allergy Verified 07/19/18 11:56 - Home Medications Home Medications: Ambulatory Orders Aspirin [ASA -] 81 mg PO DAILY 04/17/17 Atorvastatin Ca [Lipitor] 40 mg PO HS 04/17/17 Levothyroxine [Synthroid -] 50 mcg PO DAILY 04/17/17 Memantine HCl [Namenda Xr] 28 mg PO DAILY 04/17/17 Amlodipine Besylate [Norvasc -] 10 mg PO DAILY #30 tablet 06/17/18 Divalproex [Depakote -] 125 mg PO TID 06/17/18 Lisinopril 20 mg PO DAILY 06/17/18 Polyethylene Glycol 3350 [Miralax 119 gm Btl -] 17 g PO PRN PRN 06/17/18 Quetiapine Fumarate [Seroquel -] 25 mg PO HS 06/17/18 predniSONE [Deltasone -] 40 mg PO DAILY #4 tablet 06/18/18 Family Disease History - Family Disease History Family Disease History: Other: Daughter (HTN) Other Family History: daughter states multiple family members have hypertension Review of Systems Unable to obtain ROS, reason: patient non-verbal Physical Exam-GI Vital Signs: Vital Signs Temperature 98.0 F 07/21/18 06:00 Pulse Rate 52 L 07/21/18 06:00 Respiratory Rate 07/21/18 06:00 Blood Pressure 155/82 07/21/18 06:00 O2 Sat by Pulse Oximetry (%) 98 07/20/18 21:00 Constitutional: Yes: No Distress, Calm Eyes: Yes: Conjunctiva Clear Neck: Yes: Supple Cardiovascular: Yes: Regular Rate and Rhythm Respiratory: Yes: Regular, CTA Bilaterally Gastrointestinal Inspection: Yes: WNL. No: Ascites, Distention, Hernia, Scars, Other ...Auscultate: Yes: Normoactive Bowel Sounds. No: Hyperactive Bowel Sounds, Hypoactive Bowel Sounds, No Bowel Sounds, Other ...Palpate: Yes: Soft, Other (nontender, nondistended). No: Firm/Rigid, Guarding, Hepatomegaly, Mass, Pulsatile Mass, Splenomegaly, Tenderness, Tenderness, Epigastium, Tenderness, Rebound ...Percussion: Yes: Tympanitic. No: Dullness, Fluid Wave, Other Genitourinary: Yes: Incontinence Neurological: Yes: Alert, Pre-Existing Deficit Labs: CBC, BMP 07/21/18 06:05 07/21/18 06:00 Active Medications Generic Name Dose Route Start Last Admin Trade Name Freq PRN Reason Stop Dose Admin Acetaminophen 650 mg 07/19/18 15:35 Tylenol - PO Q4H PRN FEVER Aspirin 81 mg 07/20/18 10:00 07/20/18 10:32 Asa - PO Not Given DAILY [facility] Enoxaparin Sodium 40 mg 07/20/18 10:00 07/20/18 10:32 Lovenox - SQ 40 mg DAILY [facility] Administration Ceftriaxone Sodium 1 gm/ 50 mls @ 100 mls/hr 07/20/18 10:00 07/20/18 15:24 Dextrose IVPB 100 mls/hr DAILY [facility] Administration Protocol Dextrose 1,000 mls @ 100 mls/hr 07/19/18 23:49 07/21/18 05:55 D5w - IV 100 mls/hr ASDIR [facility] Administration Levothyroxine Sodium 50 mcg 07/20/18 07:00 07/21/18 06:07 Synthroid - PO Not Given DAILY@0700 [facility] Non-Formulary Medication 28 mg 07/20/18 10:00 Memantine Hcl [Namenda Xr] PO DAILY [facility] Problem List - Problems (1) Poor appetite Assessment/Plan: R>when medically cleared patient will have PEG tube placed Code(s): R63.0 - ANOREXIA
[2018-07-21] MEDS ORDERED: cefTRIAXone SODIUM 1 GM VIAL ONE (09:52)
[2018-07-21] MEDS ORDERED: DEXTROSE 5%-WATER - 50 ML IVPB ONE (09:52)
[2018-07-21] MEDS: ASPIRIN 81 MG CHEWABLE TABLETS PO SCH (09:58)
[2018-07-21] MEDS: CEFTRIAXONE 1 GM in DEXTROSE 5%-WATER - 50 ML IVPB SCH (09:58)
[2018-07-21] MEDS: ENOXAPARIN NA (PORCINE) 40 MG/0.4 ML DISP.SYRIN SQ SCH (09:58)
--- NOTE | 2018-07-21 11:09 | PN ---
Physical Exam: SUBJECTIVE: Patient seen and examined lying comfortably in bed. daughter bedside: states she is the one who takes care of her in home and she has 2 health aid. States she has sluggish eating in home. No new events overnight. OBJECTIVE: Vital Signs Period Temp Pulse Resp BP Sys/Torres Pulse Ox Last 24 Hr 97.6 F-98.6 F 50-66 16-20 118-156/55-82 98 GENERAL: awake, non responsive ENT: dry mucous membranes. no oral thrush LUNGS: Breath sounds equal, clear to auscultation bilaterally, no wheezes, no crackles, no accessory muscle use. HEART: Regular rate and rhythm, S1, S2 ABDOMEN: Soft, nontender, nondistended, normoactive bowel sounds, no guarding, no rebound, EXTREMITIES:, warm, well-perfused, no edema. PSYCH: Normal mood, normal affect. SKIN: Warm, dry, Laboratory Results - last 24 hr 07/20/18 07/20/18 07/21/18 10:45 10:45 06:00 WBC 8.1 RBC 3.81 Hgb 11.3 Hct 35.8 MCV 93.9 MCH 29.8 MCHC 31.7 L RDW 16.5 H Plt Count 153 D MPV 10.2 Absolute Neuts (auto) 5.7 Neutrophils % 71.2 Lymphocytes % 22.1 D Monocytes % 4.6 Eosinophils % 1.5 D Basophils % 0.6 Nucleated RBC % 0 Sodium 162 H* 155 H Potassium 3.1 L 3.1 L Chloride 128 H 123 H Carbon Dioxide 28 28 Anion Gap 6 L 4 L BUN 23 H 21 H Creatinine 1.0 0.8 Creat Clearance w eGFR 53.76 > 60 Random Glucose 86 91 Calcium 8.8 8.4 L Phosphorus 3.5 3.4 Magnesium 2.3 2.4 07/21/18 06:05 WBC 7.3 RBC 3.62 Hgb 11.0 Hct 33.7 MCV 92.9 MCH 30.4 MCHC 32.8 RDW 16.3 H Plt Count 135 MPV 10.4 Absolute Neuts (auto) 4.9 Neutrophils % 67.9 Lymphocytes % 24.6 Monocytes % 5.4 Eosinophils % 1.5 Basophils % 0.6 Nucleated RBC % 0 Sodium Potassium Chloride Carbon Dioxide Anion Gap BUN Creatinine Creat Clearance w eGFR Random Glucose Calcium Phosphorus Magnesium Active Medications Generic Name Dose Route Start Last Admin Trade Name Rema PRN Reason Stop Dose Admin Acetaminophen 650 mg 07/19/18 15:35 Tylenol - PO Q4H PRN FEVER Aspirin 81 mg 07/20/18 10:00 07/21/18 09:58 Asa - PO Not Given DAILY [facility] Enoxaparin Sodium 40 mg 07/20/18 10:00 07/21/18 09:58 Lovenox - SQ 40 mg DAILY [facility] Administration Ceftriaxone Sodium 1 gm/ 50 mls @ 100 mls/hr 07/20/18 10:00 07/21/18 09:58 Dextrose IVPB 100 mls/hr DAILY [facility] Administration Protocol Dextrose 1,000 mls @ 100 mls/hr 07/19/18 23:49 07/21/18 05:55 D5w - IV 100 mls/hr ASDIR [facility] Administration Potassium Chloride 10 meq in 100 mls @ 100 mls/hr 07/21/18 11:15 Potassium Chloride 10 Meq Premix Ivpb - IVPB 07/21/18 14:14 Q60M NABIL Levothyroxine Sodium 50 mcg 07/20/18 07:00 07/21/18 06:07 Synthroid - PO Not Given DAILY@0700 [facility] Non-Formulary Medication 28 mg 07/20/18 10:00 Memantine Hcl [Namenda Xr] PO DAILY [facility] ASSESSMENT/PLAN: (1) Hypernatremia; because of poor oral intake -improving at expected rate -continue D5W @ 100ml/hr - na 155: rate of decrease 0.5 to 1 meq /hr not more than 10 meq in 24 hour _ peg tube once medically optimize - GI consult appreciated (2) UTI (urinary tract infection) - on ceftrixone day 3 - Urine cx _ ecoil - ID on case - afebrile overnight (3) Acute metabolic encephalopathy -NPO -speech therapy consult pending (4) HTN (hypertension) controlled -monitor 156/76 (5) Hypothyroid - NPO - synthroid po once able to take (6) HLD (hyperlipidemia) -continue statin (7) Alzheimer's dementia -continue namenda - change position q2h Fluid: D5W 100ml/he electrolyte: hypernatremia Nutrition: npo for now DVT pro: lovenox daily 40 dipso: med surg Visit type - Emergency Visit Emergency Visit: Yes ED Registration Date: 07/19/18 Care time: The patient presented to the Emergency Department on the above date and was hospitalized for further evaluation of their emergent condition. - New Patient This patient is new to me today: Yes Date on this admission: 07/21/18 - Critical Care Critical Care patient: No
--- NOTE | 2018-07-21 12:13 | CONSULT ---
Admitting History and Physical - Primary Care Physician PCP: Davey Vela - Admission History of Present Illness: 78yo F with PMH of Parkinson's, Alzheimer's, HTN, HLD, Hypothyroid, Behavioral disturbance on seroquel and depakote, bradycardia coming from home for poor appetite. UTI Microbiology 07/19/18 12:44 Urine - Urine - Catheterized Urine Culture - Final Escherichia Coli Selected Entries 07/20/18 07/20/18 07/20/18 00:00 06:39 09:58 Supper Temperature 97.7 F 97.5 F L 98.2 F 07/20/18 07/20/18 07/20/18 15:40 18:25 20:39 Supper NPO Temperature 98.6 F 97.8 F 07/21/18 07/21/18 07/21/18 02:00 06:00 10:03 Supper Temperature 97.9 F 98.0 F 97.6 F Laboratory Tests 07/19/18 07/20/18 07/21/18 13:35 04:00 06:00 WBC Sodium 165 H* 163 H* 155 H 07/21/18 06:05 WBC 7.3 Sodium Pt known to me from previous admission.Slow PO acceptance and swallow initiation.Tolerated puree/nectar thick liiquid, last seen by me 06/18/18. Pt's daughter reports that pt did well with puree and nectar, and was upgrade to soft foods and thin liquid at home, when she was able to tolerate it. She began holding food/liqid in her mouth and pt was again admitted. She is a full code and wants her mother to go back home with her again. 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 Cardiovascular: Yes: HTN ...: No - Past Surgical History Past Surgical History: Yes: None - Smoking History Smoking history: Never smoked Have you smoked in the past 12 months: No - Alcohol/Substance Use Hx Alcohol Use: No History of Substance Use: reports: None - Social History ADL: Family Assistance History of Recent Travel: No History - Admission Reason For Visit: UTI/HYPERNATREMIA/FEEDING PROBLEM IN ADULT - Diagnostics X-ray: Report Reviewed - General Mental Status: Awake and Alert, Confused Attention: Moderate Impairment Ability to Follow Directions: Poor Head/Neck Control: Fair, Needs Assist - Hearing Hearing: Functional Speech Evaluation - Communication Primary Language: [place] Communication: Yes: Non-Communicable (rare) - Speech Production Able to Make Needs Known: Yes: Severely Impaired Intelligibility: Yes: Severely Impaired - Speech Characteristics Articulation: Yes: Precise - Language/Auditory Comprehension Observation: Able to respond to yes/no queries: No - Language/Verbal Expression Able to Respond to Simple Queries: Yes: Severely Impaired Able to Communicate Wants and Needs: Yes: Severely Impaired Functional Communication Status: Yes: Severely Impaired - Swallow Evaluation/Bedside Assessment Current Nutritional Intake: NPO Oral Secretions: Yes: WFL Dentition: Yes: Adequate Facial Symmetry at Rest: Symmetrical Lingual Movement: Symmetric Lingual Speed of Movement: Normal Lingual Movement Strgth Against Opposition: Normal Lingual Movement Characteristics: Normal Laryngeal Movement: Labored,delay initiation Rate of Intake: Slow/Holding (needs repeated cues to swallow) A-P Transit: WFL Pocketing: Present Bilaterally Timing of Swallow: Delayed Coughing/Throat Clear: No Change in Voice: No Recommendations - Speech Evaluation, Impression/Plan Impression: Slow PO acceptance and swallow initiation.Frequent oral holding, likely exacerbated by UTI,dehydration.Swallow itself is fairly brisk, once triggered. Pt's daughter does not anyone but herself to feed her mother while she is in the hospital. - Disposition Discharge to: Home with Assist - Dysphagia Impressions/Plan Swallowing Skills: Impaired Dysphagia Impressions: Mild Impairment *Silent aspiration: cannot be R/O at bedside Dysphagia Treatment Plan: Small Bites, Chin Tuck/Down, Clear Pocket Food, Trial Feedings, Safe Rate, 1/2 tsp. at a time, Elevate HOB during feed, Other (Trial of Magic cup by daughter. 1/2 tsp at a time. tell pt to swallow. Monitor for swallow reflex. Use cup of ice with metal spoon,Cold spoon with gentle pressure to tongue to facilitate and stimulate swallow onset, if oral holding noted.) Recommendations: GI Consult (Pending PEG insertion, for improved consistency of nutritional intake, meds,hydration.), Other - Recommendations Diet Consistency: NPO Liquids: NPO Supplement: Magic Cup (by daughter only, per her request.Approved by Dr. Vela. )
[2018-07-21] MEDS: KCL 10 MEQ IVPB 10 MEQ/100 ML INFUS.BAG IVPB SCH ×3 (12:23→18:52)
--- NOTE | 2018-07-21 12:35 | PN ---
Progress Note, VETERINARY HOSPITAL ATTENDANT - Note Progress Note: Daughter educated and trained in feeding pt. Pt accepted Magic cup well. Trial of Magic cup by daughter only. 1/2 tsp at a time. Tell pt to swallow. Monitor for swallow reflex. Use cup of ice with metal spoon,Cold spoon with gentle pressure to tongue to facilitate and stimulate swallow onset, if oral holding noted. Stop feeding if not swallowing, throat clearing, coughing, congested.
--- NOTE | 2018-07-21 15:08 | PN ---
Teaching Attending Note Name of Resident: Clarence Mcadams ATTENDING PHYSICIAN STATEMENT I saw and evaluated the patient. I reviewed the resident's note and discussed the case with the resident. I agree with the resident's findings and plan as documented. SUBJECTIVE: unable to obtain but awake OBJECTIVE: Last Vital Signs Temp Pulse Resp BP Pulse Ox 36.4 C 51 L 16 156/75 98 07/21/18 10:03 07/21/18 10:03 07/21/18 10:03 07/21/18 10:03 07/20/18 21:00 Gen: nad Pulm: ctab w/o w/r/r CV: rrr w/o m/r/g Abd: +bs, s/nt/nd Ext: no c/c/e CBC, BMP 07/21/18 06:05 07/21/18 06:00 ASSESSMENT AND PLAN: (1) Hypernatremia Assessment/Plan: -improving at expected rate -continue D5W @ 100ml/hr, decrease rate as it comes down further -daily BMP checks Code(s): E87.0 - HYPEROSMOLALITY AND HYPERNATREMIA (2) UTI (urinary tract infection) Assessment/Plan: -continue rocephin day 3/7 -growing e coli that is sensitive to rocephin Code(s): N39.0 - URINARY TRACT INFECTION, SITE NOT SPECIFIED Qualifiers: Urinary tract infection type: acute cystitis Hematuria presence: without hematuria Qualified Code(s): N30.00 - Acute cystitis without hematuria (3) Acute metabolic encephalopathy Assessment/Plan: -case d/w speech therapy -safe to have magic cup -after lengthy discussion, only daughter to feed -planning for PEG tube when sodium improed Code(s): G93.41 - METABOLIC ENCEPHALOPATHY (4) HTN (hypertension) -controlled -considering age and comorbidities, does not need intense control Code(s): I10 - ESSENTIAL (PRIMARY) HYPERTENSION (5) Hypothyroid Assessment/Plan: -continue synthroid when safe to take po -synthroid with long half life, does not need IV yet Code(s): E03.9 - HYPOTHYROIDISM, UNSPECIFIED (6) HLD (hyperlipidemia) Assessment/Plan: -continue statin Code(s): E78.5 - HYPERLIPIDEMIA, UNSPECIFIED (7) Alzheimer's dementia Assessment/Plan: -continue namenda Code(s): G30.9 - ALZHEIMER'S DISEASE, UNSPECIFIED Qualifiers: Alzheimer's disease onset: other onset Dementia behavioral disturbance: without behavioral disturbance Qualified Code(s): G30.8 - Other Alzheimer's disease (8) Thrush, oral Assessment/Plan: -s/p diflucan Code(s): B37.0 - CANDIDAL STOMATITIS Problem List - Problems (1) Hypernatremia Code(s): E87.0 - HYPEROSMOLALITY AND HYPERNATREMIA (2) UTI (urinary tract infection) Code(s): N39.0 - URINARY TRACT INFECTION, SITE NOT SPECIFIED Qualifiers: Urinary tract infection type: acute cystitis Hematuria presence: without hematuria Qualified Code(s): N30.00 - Acute cystitis without hematuria (3) Acute metabolic encephalopathy Code(s): G93.41 - METABOLIC ENCEPHALOPATHY (4) HTN (hypertension) Code(s): I10 - ESSENTIAL (PRIMARY) HYPERTENSION (5) Hypothyroid Code(s): E03.9 - HYPOTHYROIDISM, UNSPECIFIED (6) HLD (hyperlipidemia) Code(s): E78.5 - HYPERLIPIDEMIA, UNSPECIFIED (7) Alzheimer's dementia Code(s): G30.9 - ALZHEIMER'S DISEASE, UNSPECIFIED Qualifiers: Alzheimer's disease onset: other onset Dementia behavioral disturbance: without behavioral disturbance Qualified Code(s): G30.8 - Other Alzheimer's disease; F02.80 - Dementia in other diseases classified elsewhere without behavioral disturbance (8) Thrush, oral Code(s): B37.0 - CANDIDAL STOMATITIS
[2018-07-22] MEDS: DEXTROSE 5%-WATER - 1,000 ML IV SCH ×2 (06:06→17:04)
[2018-07-22] MEDS: LEVOTHYROXINE NA 50 MCG TABLET (FP) PO SCH (06:06)
--- NOTE | 2018-07-22 07:47 | PN ---
Physical Exam: SUBJECTIVE: Patient seen and examined no new course overnight. OBJECTIVE: Vital Signs Period Temp Pulse Resp BP Sys/Torres Pulse Ox Last 24 Hr 97.3 F-99.3 F 51-61 16-20 125-156/57-82 98-98 GENERAL: awake, non responsive ENT: dry mucous membranes. no oral thrush LUNGS: Breath sounds equal, clear to auscultation bilaterally, no wheezes, no crackles, no accessory muscle use. HEART: Regular rate and rhythm, S1, S2 ABDOMEN: Soft, nontender, nondistended, normoactive bowel sounds, no guarding, no rebound, EXTREMITIES:, warm, well-perfused, no edema. PSYCH: Normal mood, normal affect. SKIN: Warm, dry Laboratory Results - last 24 hr 07/21/18 07/21/18 06:00 06:05 WBC 7.3 RBC 3.62 Hgb 11.0 Hct 33.7 MCV 92.9 MCH 30.4 MCHC 32.8 RDW 16.3 H Plt Count 135 MPV 10.4 Absolute Neuts (auto) 4.9 Neutrophils % 67.9 Lymphocytes % 24.6 Monocytes % 5.4 Eosinophils % 1.5 Basophils % 0.6 Nucleated RBC % 0 Sodium 155 H Potassium 3.1 L Chloride 123 H Carbon Dioxide 28 Anion Gap 4 L BUN 21 H Creatinine 0.8 Creat Clearance w eGFR > 60 Random Glucose 91 Calcium 8.4 L Phosphorus 3.4 Magnesium 2.4 Active Medications Generic Name Dose Route Start Last Admin Trade Name Freq PRN Reason Stop Dose Admin Acetaminophen 650 mg 07/19/18 15:35 Tylenol - PO Q4H PRN FEVER Aspirin 81 mg 07/20/18 10:00 07/21/18 09:58 Asa - PO Not Given DAILY NABIL Enoxaparin Sodium 40 mg 07/20/18 10:00 07/21/18 09:58 Lovenox - SQ 40 mg DAILY NABIL Administration Ceftriaxone Sodium 1 gm/ 50 mls @ 100 mls/hr 07/20/18 10:00 07/21/18 09:58 Dextrose IVPB 100 mls/hr DAILY NABIL Administration Protocol Dextrose 1,000 mls @ 100 mls/hr 07/19/18 23:49 07/22/18 06:06 D5w - IV Not Given ASDIR NABIL Levothyroxine Sodium 50 mcg 07/20/18 07:00 07/22/18 06:06 Synthroid - PO Not Given DAILY@0700 NABIL Non-Formulary Medication 28 mg 07/20/18 10:00 Memantine Hcl [Namenda Xr] PO DAILY NABIL ASSESSMENT/PLAN: (1) Hypernatremia; because of poor oral intake -improving at expected rate -continue D5W @ 100ml/hr - rate of decrease 0.5 to 1 meq /hr not more than 10 meq in 24 hour _ peg tube once medically optimize - GI on case (2) UTI (urinary tract infection) - on ceftrixone day 4 - Urine cx _ ecoil - ID on case - afebrile overnight (3) Acute metabolic encephalopathy -NPO -speech therapy consult appreciated (4) HTN (hypertension) controlled -monitor 156/76 (5) Hypothyroid - NPO - synthroid po once able to take (6) HLD (hyperlipidemia) -continue statin (7) Alzheimer's dementia -continue namenda - change position q2h Fluid: D5W 100ml/he electrolyte: hypernatremia Nutrition: npo for now DVT pro: lovenox daily 40 dipso: med surg Visit type - Emergency Visit Emergency Visit: Yes ED Registration Date: 07/19/18 Care time: The patient presented to the Emergency Department on the above date and was hospitalized for further evaluation of their emergent condition. - New Patient This patient is new to me today: No - Critical Care Critical Care patient: No
[2018-07-22 07:54] LABS: INR 1.1 (0.83-1.09)
[2018-07-22 08:29] LABS: ANION GAP 5 MMOL/L (8-16); BLOOD UREA NITROGEN 18 mg/dL (7-18); CALCIUM 8.5 mg/dL (8.5-10.1); CHLORIDE 121 mmol/L (98-107); CO2 27 mmol/L (21-32); CREATININE 0.8 mg/dL (0.55-1.3); GLUCOSE,RANDOM 101 mg/dL (74-106); POTASSIUM 3.4 mmol/L (3.5-5.1); SODIUM 153 mmol/L (136-145)
[2018-07-22] MEDS ORDERED: DEXTROSE 5%-WATER - 50 ML IVPB ONE (10:07)
[2018-07-22] MEDS ORDERED: cefTRIAXone SODIUM 1 GM VIAL ONE (10:07)
[2018-07-22] MEDS: CEFTRIAXONE 1 GM in DEXTROSE 5%-WATER - 50 ML IVPB SCH (10:11)
[2018-07-22] MEDS: ASPIRIN 81 MG CHEWABLE TABLETS PO SCH (10:54)
[2018-07-22] MEDS: ENOXAPARIN NA (PORCINE) 40 MG/0.4 ML DISP.SYRIN SQ SCH (10:55)
--- NOTE | 2018-07-22 11:02 | PN ---
Progress Note, [employer] - Note Progress Note: Pt accepting and tolerating Magic cup from her daughter, when she attends. Otherwise, pt is NPO, per daughter's request. Pending PEG insertion. Selected Entries 07/20/18 07/20/18 07/20/18 00:00 06:39 09:58 Temperature Respiratory 20 20 20 Rate Respiratory Effort O2 Sat by Pulse Oximetry (%) Oxygen Delivery Method 07/20/18 07/20/18 07/20/18 10:05 15:40 18:25 Temperature Respiratory 20 20 Rate Respiratory Non-Labored Effort O2 Sat by Pulse Oximetry (%) Oxygen Delivery Method 07/20/18 07/21/18 07/21/18 21:00 02:00 06:00 Temperature 97.9 F 98.0 F Respiratory 19 20 19 Rate Respiratory Non-Labored Effort O2 Sat by Pulse Oximetry (%) Oxygen Delivery Method 07/21/18 07/21/18 07/21/18 09:00 10:03 18:00 Temperature 97.6 F 97.3 F L Respiratory 16 16 20 Rate Respiratory Non-Labored Effort O2 Sat by Pulse 98 Oximetry (%) Oxygen Delivery Room Air Method 07/21/18 07/22/18 07/22/18 21:00 02:00 06:00 Temperature 99.3 F 98.0 F Respiratory 20 20 Rate Respiratory Non-Labored Effort O2 Sat by Pulse 98 Oximetry (%) Oxygen Delivery Room Air Method Laboratory Tests 07/21/18 06:05 WBC 7.3
--- NOTE | 2018-07-22 11:16 | PN ---
Teaching Attending Note Name of Resident: Clarence Mcadams ATTENDING PHYSICIAN STATEMENT I saw and evaluated the patient. I reviewed the resident's note and discussed the case with the resident. I agree with the resident's findings and plan as documented. SUBJECTIVE: Unable to obtain OBJECTIVE: Last Vital Signs Temp Pulse Resp BP Pulse Ox 36.7 C 53 L 20 125/57 L 98 07/22/18 06:00 07/22/18 06:00 07/22/18 06:00 07/22/18 06:00 07/21/18 21:00 Gen: nad Pulm: ctab w/o w/r/r CV: rrr w/o m/r/g Abd: +bs, s/nt/nd Ext: no c/c/e CBC, BMP 07/21/18 06:05 07/22/18 07:00 ASSESSMENT AND PLAN: (1) Hypernatremia Assessment/Plan: -improving at expected rate -continue D5W @ 100ml/hr -daily BMP checks Code(s): E87.0 - HYPEROSMOLALITY AND HYPERNATREMIA (2) UTI (urinary tract infection) Assessment/Plan: -continue rocephin day 4/7 -growing e coli that is sensitive to rocephin Code(s): N39.0 - URINARY TRACT INFECTION, SITE NOT SPECIFIED Qualifiers: Urinary tract infection type: acute cystitis Hematuria presence: without hematuria Qualified Code(s): N30.00 - Acute cystitis without hematuria (3) Acute metabolic encephalopathy Assessment/Plan: -continue magic cup when daughter available to feed -plan for PEG tube Code(s): G93.41 - METABOLIC ENCEPHALOPATHY (4) HTN (hypertension) -controlled -considering age and comorbidities, does not need intense control Code(s): I10 - ESSENTIAL (PRIMARY) HYPERTENSION (5) Hypothyroid Assessment/Plan: -continue synthroid when safe to take po -synthroid with long half life, does not need IV yet Code(s): E03.9 - HYPOTHYROIDISM, UNSPECIFIED (6) HLD (hyperlipidemia) Assessment/Plan: -continue statin Code(s): E78.5 - HYPERLIPIDEMIA, UNSPECIFIED (7) Alzheimer's dementia Assessment/Plan: -continue namenda when PEG tube placed -daughter states patient has hallucinations -consider zyprexa through PEG tube -declines haldol as too sedating -allergic to depakote and seroquel Code(s): G30.9 - ALZHEIMER'S DISEASE, UNSPECIFIED Qualifiers: Alzheimer's disease onset: other onset Dementia behavioral disturbance: without behavioral disturbance Qualified Code(s): G30.8 - Other Alzheimer's disease (8) Thrush, oral Assessment/Plan: -s/p diflucan Code(s): B37.0 - CANDIDAL STOMATITIS Problem List - Problems (1) Hypernatremia Code(s): E87.0 - HYPEROSMOLALITY AND HYPERNATREMIA (2) UTI (urinary tract infection) Code(s): N39.0 - URINARY TRACT INFECTION, SITE NOT SPECIFIED Qualifiers: Urinary tract infection type: acute cystitis Hematuria presence: without hematuria Qualified Code(s): N30.00 - Acute cystitis without hematuria (3) Acute metabolic encephalopathy Code(s): G93.41 - METABOLIC ENCEPHALOPATHY (4) HTN (hypertension) Code(s): I10 - ESSENTIAL (PRIMARY) HYPERTENSION (5) Hypothyroid Code(s): E03.9 - HYPOTHYROIDISM, UNSPECIFIED (6) HLD (hyperlipidemia) Code(s): E78.5 - HYPERLIPIDEMIA, UNSPECIFIED (7) Alzheimer's dementia Code(s): G30.9 - ALZHEIMER'S DISEASE, UNSPECIFIED Qualifiers: Alzheimer's disease onset: other onset Dementia behavioral disturbance: without behavioral disturbance Qualified Code(s): G30.8 - Other Alzheimer's disease; F02.80 - Dementia in other diseases classified elsewhere without behavioral disturbance (8) Thrush, oral Code(s): B37.0 - CANDIDAL STOMATITIS
--- NOTE | 2018-07-22 15:50 | PN ---
GI Progress Note Subjective: No acute events Patient resting comfortably - Objective Vital Signs: Vital Signs Temperature 98.0 F 07/22/18 06:00 Pulse Rate 53 L 07/22/18 06:00 Respiratory Rate 20 07/22/18 06:00 Blood Pressure 125/57 L 07/22/18 06:00 O2 Sat by Pulse Oximetry (%) 98 07/21/18 21:00 Constitutional: Calm Eyes: No: Sclera Icterus Cardiovascular: Yes: Bradycardia Respiratory: Yes: Diminished (at bases with poor insp effort) Gastrointestinal Inspection: No: Distention ...Auscultate: Yes: Normoactive Bowel Sounds ...Palpate: No: Tenderness (No grimacing upon palpation) ...Percussion: No: Tympanitic Edema: No (No LE edema) Neurological: Yes: Alert Labs: CBC, BMP 07/21/18 06:05 07/22/18 07:00 INR, PTT INR 1.10 (0.83-1.09) H 07/22/18 07:00 Problem List - Problems (1) Poor appetite Assessment/Plan: Had long telephone discussion with Ms. Ng's daughter Sandra. We discussed PEG placement secondary to Ms. Ng's inconsistent PO intake. We discussed potential risks of the procedure like but not limited to bleeding, perforation requiring surgery to repair, infection, sedation medication effects , perotinitis if the tube was prematurely dislodged, aspiration, all of which could be potentially life threatening. I explained that if PEG could not be placed due to anatomical constraints, alternate form of gastrostomy tube placement would need to be considered. We also discussed more buttermaker helper complications such as G tube site infection and malfunction with need for replacement. She has agreed to the procedure. Discussed with Dr. Vela, patient cleared for procedure tomorrow. Replete and correct lytes Hold AM A/C AM Labs Code(s): R63.0 - ANOREXIA
[2018-07-22] MEDS: KCL 10 MEQ IVPB 10 MEQ/100 ML INFUS.BAG IVPB SCH ×3 (17:04→21:54)
[2018-07-22] MEDS ORDERED: PT OWN MED DRAWER 7, Y5N ONE (20:32)
[2018-07-23] MEDS ORDERED: PT OWN MED DRAWER 7, Y5N ONE (03:15)
[2018-07-23] MEDS: LEVOTHYROXINE NA 50 MCG TABLET (FP) PO SCH (06:01)
[2018-07-23] MEDS: DEXTROSE 5%-WATER - 1,000 ML IV SCH (07:13)
[2018-07-23 07:24] LABS: BASO % 0.6 % (0-2.0); EOS % 1.1 % (0-4.5); HEMATOCRIT 31.4 % (32.4-45.2); HEMOGLOBIN 10.3 GM/dL (10.7-15.3); LYMPH % 23.8 % (8-40); MCH 29.8 pg (25.7-33.7); MCHC 32.7 g/dl (32.0-36.0); MEAN CELL VOLUME 91.2 fl (80-96); MEAN PLT VOLUME 10.7 fl (7.5-11.1); NEUT % 68.5 % (42.8-82.8); PLATELET COUNT 109 K/MM3 (134-434); RBC 3.44 M/mm3 (3.60-5.2); RDW 15.6 % (11.6-15.6); WHITE BLOOD COUNT 5.5 K/mm3 (4.0-10.0)
[2018-07-23 07:50] LABS: INR 1.13 (0.83-1.09); PROTHROMBIN TIME (PATIENT) 13.3 SEC (9.7-13.0)
[2018-07-23 07:52] LABS: ACTIVATED PTT 31.6 SECONDS (25.2-36.5)
[2018-07-23 08:10] LABS: ANION GAP 8 MMOL/L (8-16); BLOOD UREA NITROGEN 16 mg/dL (7-18); CALCIUM 8.3 mg/dL (8.5-10.1); CHLORIDE 115 mmol/L (98-107); CO2 24 mmol/L (21-32); CREATININE 0.8 mg/dL (0.55-1.3); GLUCOSE,RANDOM 94 mg/dL (74-106); SODIUM 148 mmol/L (136-145)
[2018-07-23 08:17] LABS: POTASSIUM 2.9 mmol/L (3.5-5.1)
[2018-07-23] MEDS ORDERED: POTASSIUM CHLORIDE ORAL LIQUID 20 MEQ/15 ML PO ONE (08:23)
--- NOTE | 2018-07-23 08:30 | PN ---
Teaching Attending Note Name of Resident: Clarence Mcadams ATTENDING PHYSICIAN STATEMENT I saw and evaluated the patient. I reviewed the resident's note and discussed the case with the resident. I agree with the resident's findings and plan as documented. 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 LABS: CBC, BMP 07/23/18 06:20 07/23/18 06:20 MEDS: Active Medications Acetaminophen (Tylenol -) 650 mg PO Q4H PRN PRN Reason: FEVER Ceftriaxone Sodium 1 gm/ (Dextrose) 50 mls @ 100 mls/hr IVPB DAILY [facility]; Protocol Last Admin: 07/22/18 10:11 Dose: 100 mls/hr Dextrose (D5w -) 1,000 mls @ 100 mls/hr IV ASDIR [facility] Last Admin: 07/23/18 07:13 Dose: 100 mls/hr Potassium Chloride (Potassium Chloride 10 Meq Premix Ivpb -) 10 meq in 100 mls @ 100 mls/hr IVPB Q60M [facility] Stop: 07/23/18 11:59 Levothyroxine Sodium (Synthroid -) 50 mcg PO DAILY@0700 [facility] Last Admin: 07/23/18 06:01 Dose: Not Given Non-Formulary Medication (Memantine Hcl [Namenda Xr]) 28 mg PO DAILY [facility] ASSESSMENT AND PLAN: 78 yrs old F with advanced Dementia, Hypothyroidism, present with acute toxic metabolic encephalopathy due to poor Po intake leads to dehydration, Hypernatremia, worsening mental status, also UTI responded to IV Hydratin , evaluted by speech and swallow recommended PEG today lab shows Hypokalemia. Problem List - Problems (1) Acute metabolic encephalopathy Assessment/Plan: Due to dehydration and hypernatremia on dementia now at base line. Code(s): G93.41 - METABOLIC ENCEPHALOPATHY (2) Hypernatremia Assessment/Plan: Due to dehydration corrected Code(s): E87.0 - HYPEROSMOLALITY AND HYPERNATREMIA (3) HLD (hyperlipidemia) Code(s): E78.5 - HYPERLIPIDEMIA, UNSPECIFIED (4) HTN (hypertension) Assessment/Plan: Well controlled Code(s): I10 - ESSENTIAL (PRIMARY) HYPERTENSION (5) Failure to thrive Assessment/Plan: Due to Dementia unable meet nutrition and hydration, s/p PEG F/U GI recommendation for PEG> Code(s): [id number] - (6) Hypothyroid Assessment/Plan: On Levothyroxine Code(s): E03.9 - HYPOTHYROIDISM, UNSPECIFIED (7) Dementia Assessment/Plan: Chronic Code(s): F03.90 - UNSPECIFIED DEMENTIA WITHOUT BEHAVIORAL DISTURBANCE
[2018-07-23] MEDS ORDERED: DEXTROSE 5%-WATER - 50 ML IVPB ONE (08:40)
[2018-07-23] MEDS ORDERED: cefTRIAXone SODIUM 1 GM VIAL ONE (08:40)
[2018-07-23] MEDS: KCL 10 MEQ IVPB 10 MEQ/100 ML INFUS.BAG IVPB SCH ×3 (08:43→14:29)
[2018-07-23] MEDS: CEFTRIAXONE 1 GM in DEXTROSE 5%-WATER - 50 ML IVPB SCH (09:00)
[2018-07-23] MEDS ORDERED: ceFAZolin SODIUM 1 GM VIAL IVPB ONE (11:35)
[2018-07-23] MEDS ORDERED: CEFAZOLIN 1 GM/D5W 1 GM/50 ML BAG ONE (11:45)
--- NOTE | 2018-07-23 12:06 | PN ---
Progress Note (short form) - Note Progress Note: EGD/PEG complete. Report left in procedural section of physical chart and to be scanned into [facility] [facility]. PEG care instructions as ojutlined in procedural report and as entered into [facility] [employer] [facility] order section. Problem List - Problems (1) Poor appetite Code(s): R63.0 - ANOREXIA
[2018-07-23] MEDS ORDERED: ACETAMINOPHEN 1000 MG/100 ML VIAL (NON FORMULARY) IVPB ONE (13:09)
[2018-07-23] MEDS: D5-1/2NS+20 MEQ KCL - 20 MEQ/1,000 ML INFUS.BAG IV SCH (13:25)
[2018-07-23] MEDS ORDERED: PATIENT'S OWN MEDICATION (NON-FORMULARY) (Memantine Hcl [Namenda Xr] 28 MG) PEG SCH (17:05)
--- NOTE | 2018-07-23 17:11 | PN ---
Physical Exam: SUBJECTIVE: Patient seen and examined came back from procedure. Lying comfortably in bed started her on for today. We will start her on lovenox from tomorrow. start meds throug peg tube getting potassium fluid changed to d5/ 1/2 ns with 20meq K repeat electrolytes tomorrow OBJECTIVE: Vital Signs Period Temp Pulse Resp BP Sys/Torres Pulse Ox Last 24 Hr 97.3 F-98.6 F 54-84 16-66 122-171/56-86 18-100 GENERAL: awake, non responsive ENT: dry mucous membranes. no oral thrush LUNGS: Breath sounds equal, clear to auscultation bilaterally, no wheezes, no crackles, no accessory muscle use. HEART: Regular rate and rhythm, S1, S2 ABDOMEN: Soft, nontender, nondistended, normoactive bowel sounds, no guarding, no rebound, peg tube in situ EXTREMITIES:, warm, well-perfused, no edema. PSYCH: Normal mood, normal affect. SKIN: Warm, dry Laboratory Results - last 24 hr 07/23/18 07/23/18 07/23/18 06:20 06:20 06:20 WBC 5.5 RBC 3.44 L Hgb 10.3 L Hct 31.4 L MCV 91.2 MCH 29.8 MCHC 32.7 RDW 15.6 Plt Count 109 L MPV 10.7 Absolute Neuts (auto) 3.8 Neutrophils % 68.5 Lymphocytes % 23.8 Monocytes % 6.0 Eosinophils % 1.1 Basophils % 0.6 Nucleated RBC % 0 PT with INR 13.30 H INR 1.13 H PTT (Actin FS) 31.6 Sodium 148 H Potassium 2.9 L* Chloride 115 H Carbon Dioxide 24 Anion Gap 8 BUN 16 Creatinine 0.8 Creat Clearance w eGFR > 60 Random Glucose 94 Calcium 8.3 L Active Medications Generic Name Dose Route Start Last Admin Trade Name Freq PRN Reason Stop Dose Admin Acetaminophen 650 mg 07/19/18 15:35 Tylenol - PO Q4H PRN FEVER Bacitracin 1 applic 07/23/18 22:00 Bacitracin - TP 07/28/18 21:59 BID NABIL Enoxaparin Sodium 40 mg 07/24/18 10:00 Lovenox - SQ DAILY NABIL Ceftriaxone Sodium 1 gm/ 50 mls @ 100 mls/hr 07/20/18 10:00 07/23/18 09:00 Dextrose IVPB 100 mls/hr DAILY NABIL Administration Protocol Potassium Chloride/Dextrose/Sod Cl 20 meq in 1,000 mls @ 75 mls/hr 07/23/18 13 :15 07/23/18 13:25 D5-1/2ns+20 Meq Kcl - IV 75 mls/hr ASDIR NABIL Administration Levothyroxine Sodium 50 mcg 07/23/18 17:05 Synthroid - PEG DAILY@0700 NABIL Non-Formulary Medication 28 mg 07/23/18 17:05 Memantine Hcl [Namenda Xr] PEG DAILY NABIL ASSESSMENT/PLAN: (1) Hypernatremia; because of poor oral intake -improving at expected rate na 148 - d5 1/2 ns with 20meq k at 75 ml/hr -peg tube pplaced on 07/13/18. We will use after gi clearance. For now only use it for meds. (2) UTI (urinary tract infection) - on ceftrixone day 5 - Urine cx _ ecoil - ID on case - afebrile overnight (3) Acute metabolic encephalopathy NPO speech therapy consult appreciated (4) HTN (hypertension) start her on home med (5) Hypothyroid synthroid through peg tube (6) HLD (hyperlipidemia) -continue statin (7) Alzheimer's dementia -continue namenda through peg tube - change position q2h Fluid: D5 1/2 ns 75 ml/hr electrolyte: hypernatremia Nutrition: we will start tube feed after gi clearance DVT pro: lovenox daily 40 from tomorrow. SCD for today dipso: med surg Visit type - Emergency Visit Emergency Visit: Yes ED Registration Date: 07/19/18 Care time: The patient presented to the Emergency Department on the above date and was hospitalized for further evaluation of their emergent condition. - New Patient This patient is new to me today: No - Critical Care Critical Care patient: No
[2018-07-23] MEDS ORDERED: ACETAMINOPHEN 650 MG/20.3 ML ORAL SOLUTION (CUPS) PEG PRN (17:21)
[2018-07-23] MEDS: LISINOPRIL 20 MG TABLET (FP) PEG SCH (17:56)
[2018-07-23] MEDS: ATORVASTATIN CA 40 MG TABLET (FP) PEG SCH (21:31)
[2018-07-23] MEDS: BACITRACIN 15 GM TUBE TOPICAL OINTMENT TP SCH (21:50)
[2018-07-24] MEDS ORDERED: ACETAMINOPHEN 1000 MG/100 ML VIAL (NON FORMULARY) IVPB ONE (01:42)
[2018-07-24] MEDS: D5-1/2NS+20 MEQ KCL - 20 MEQ/1,000 ML INFUS.BAG IV SCH (06:43)
[2018-07-24 07:47] LABS: BASO % 0.4 % (0-2.0); EOS % 1.2 % (0-4.5); HEMATOCRIT 29.4 % (32.4-45.2); HEMOGLOBIN 9.7 GM/dL (10.7-15.3); LYMPH % 18.4 % (8-40); MCH 30.1 pg (25.7-33.7); MEAN CELL VOLUME 91.3 fl (80-96); MEAN PLT VOLUME 11.2 fl (7.5-11.1); MONO % 5.4 % (3.8-10.2); NEUT % 74.6 % (42.8-82.8); PLATELET COUNT 103 K/MM3 (134-434); RBC 3.23 M/mm3 (3.60-5.2); RDW 15.8 % (11.6-15.6)
[2018-07-24] MEDS: LEVOTHYROXINE NA 50 MCG TABLET (FP) PEG SCH (08:05)
[2018-07-24 08:08] LABS: ANION GAP 4 MMOL/L (8-16); BLOOD UREA NITROGEN 10 mg/dL (7-18); CALCIUM 8.1 mg/dL (8.5-10.1); CHLORIDE 114 mmol/L (98-107); CO2 26 mmol/L (21-32); CREATININE 0.7 mg/dL (0.55-1.3); GLUCOSE,RANDOM 94 mg/dL (74-106); MAGNESIUM 2.1 mg/dL (1.8-2.4); POTASSIUM 3.5 mmol/L (3.5-5.1); SODIUM 144 mmol/L (136-145)
--- NOTE | 2018-07-24 08:12 | PN ---
Teaching Attending Note Name of Resident: Clarence Mcadams ATTENDING PHYSICIAN STATEMENT I saw and evaluated the patient. I reviewed the resident's note and discussed the case with the resident. I agree with the resident's findings and plan as documented. 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: advanced Dementia LABS: CBC, BMP 07/24/18 06:40 07/24/18 06:40 MEDS: Active Medications Acetaminophen (Tylenol -) 650 mg PO Q4H PRN PRN Reason: FEVER Ceftriaxone Sodium 1 gm/ (Dextrose) 50 mls @ 100 mls/hr IVPB DAILY [facility]; Protocol Last Admin: 07/22/18 10:11 Dose: 100 mls/hr Dextrose (D5w -) 1,000 mls @ 100 mls/hr IV ASDIR [facility] Last Admin: 07/23/18 07:13 Dose: 100 mls/hr Potassium Chloride (Potassium Chloride 10 Meq Premix Ivpb -) 10 meq in 100 mls @ 100 mls/hr IVPB Q60M [facility] Stop: 07/23/18 11:59 Levothyroxine Sodium (Synthroid -) 50 mcg PO DAILY@0700 [facility] Last Admin: 07/23/18 06:01 Dose: Not Given Non-Formulary Medication (Memantine Hcl [Namenda Xr]) 28 mg PO DAILY [facility] ASSESSMENT AND PLAN: 78 yrs old F with advanced Dementia, Hypothyroidism, present with acute toxic metabolic encephalopathy due to poor Po intake leads to dehydration, Hypernatremia, worsening mental status, also UTI responded to IV Hydratin s/p PEG Problem List - Problems (1) Acute metabolic encephalopathy Assessment/Plan: Due to dehydration and hypernatremia on dementia now at base line. Code(s): G93.41 - METABOLIC ENCEPHALOPATHY (2) Hypernatremia Assessment/Plan: Due to dehydration corrected Code(s): E87.0 - HYPEROSMOLALITY AND HYPERNATREMIA (3) HLD (hyperlipidemia) Assessment/Plan: On Statin Code(s): E78.5 - HYPERLIPIDEMIA, UNSPECIFIED (4) HTN (hypertension) Assessment/Plan: Well controlled Code(s): I10 - ESSENTIAL (PRIMARY) HYPERTENSION (5) Failure to thrive Assessment/Plan: Due to Dementia unable meet nutrition and hydration, s/p PEG F/U GI recommendation for PEG care and feeding. Code(s): [id number] - (6) Hypothyroid Assessment/Plan: On Levothyroxine Code(s): E03.9 - HYPOTHYROIDISM, UNSPECIFIED (7) Dementia Assessment/Plan: Chronic Code(s): F03.90 - UNSPECIFIED DEMENTIA WITHOUT BEHAVIORAL DISTURBANCE (8) Hypokalemia Assessment/Plan: Corrected Code(s): E87.6 - HYPOKALEMIA (9) Thrombocytopenia Assessment/Plan: No cloInical sign of infection TWBC normal gradual drop in H/H and Platelet count no active infection, patient is on Lovenox , Hold Lovenox /U Platelet f/u HIT w/u consider hematology consult idf further drop in platelet count. Code(s): D69.6 - THROMBOCYTOPENIA, UNSPECIFIED
--- NOTE | 2018-07-24 08:54 | PN ---
Progress Note (short form) - Note Progress Note: Rectal temp 100.6 yesterday Abdomen and G-Tube examined: Abdomen soft, normoactrive BS, non-distended + BS PEG in upper abdomen. skin under bolster is clean. Rotating freely, no peripeg erythema, induration OK to begin tube feeds PEG care instructions as per procedure report Advised nurse to adjust abdominal binder Monitor H/H and for sign of active bleeding. Platelets have diminished as well. Discussed with primary team Problem List - Problems (1) Poor appetite Code(s): R63.0 - ANOREXIA
[2018-07-24] MEDS ORDERED: POTASSIUM CHLORIDE ORAL LIQUID 20 MEQ/15 ML PO ONE (09:09)
[2018-07-24] MEDS ORDERED: cefTRIAXone SODIUM 1 GM VIAL ONE (09:19)
[2018-07-24] MEDS ORDERED: DEXTROSE 5%-WATER - 50 ML IVPB ONE (09:19)
[2018-07-24] MEDS ORDERED: ENOXAPARIN NA (PORCINE) 40 MG/0.4 ML DISP.SYRIN SQ SCH (10:00)
[2018-07-24] MEDS: CEFTRIAXONE 1 GM in DEXTROSE 5%-WATER - 50 ML IVPB SCH (10:14)
[2018-07-24] MEDS: LISINOPRIL 20 MG TABLET (FP) PEG SCH (10:15)
[2018-07-24] MEDS: BACITRACIN 15 GM TUBE TOPICAL OINTMENT TP SCH ×2 (10:15→22:23)
[2018-07-24] MEDS: DEXTROSE 5%-0.45% SALINE 1,000 ML IV SCH (10:36)
--- NOTE | 2018-07-24 12:29 | PN ---
Physical Exam: SUBJECTIVE: Patient seen and examined non ew events overnight plt decreased OBJECTIVE: Vital Signs Period Temp Pulse Resp BP Sys/Torres Pulse Ox Last 24 Hr 97.8 F-100.6 F 60-88 16-18 120-171/58-94 98-100 GENERAL: awake, non responsive ENT: dry mucous membranes. no oral thrush LUNGS: Breath sounds equal, clear to auscultation bilaterally, no wheezes, no crackles, no accessory muscle use. HEART: Regular rate and rhythm, S1, S2 ABDOMEN: Soft, nontender, nondistended, normoactive bowel sounds, no guarding, no rebound, peg tube in situ EXTREMITIES:, warm, well-perfused, no edema. PSYCH: Normal mood, normal affect. SKIN: Warm, dry Laboratory Results - last 24 hr 07/24/18 07/24/18 06:40 06:40 WBC 7.0 RBC 3.23 L Hgb 9.7 L Hct 29.4 L MCV 91.3 MCH 30.1 MCHC 33.0 RDW 15.8 H Plt Count 103 L MPV 11.2 H Absolute Neuts (auto) 5.3 Neutrophils % 74.6 Lymphocytes % 18.4 D Monocytes % 5.4 Eosinophils % 1.2 Basophils % 0.4 Nucleated RBC % 0 Sodium 144 Potassium 3.5 Chloride 114 H Carbon Dioxide 26 Anion Gap 4 L BUN 10 Creatinine 0.7 Creat Clearance w eGFR > 60 Random Glucose 94 Calcium 8.1 L Magnesium 2.1 Active Medications Generic Name Dose Route Start Last Admin Trade Name Freq PRN Reason Stop Dose Admin Acetaminophen 650 mg 07/23/18 17:21 Tylenol Oral Solution - PEG Q4H PRN FEVER Atorvastatin Calcium 40 mg 07/23/18 22:00 07/23/18 21:31 Lipitor - PEG 40 mg HS NABIL Administration Bacitracin 1 applic 07/23/18 22:00 07/24/18 10:15 Bacitracin - TP 07/28/18 21:59 1 applic BID NABIL Administration Ceftriaxone Sodium 1 gm/ 50 mls @ 100 mls/hr 07/20/18 10:00 07/24/18 10:14 Dextrose IVPB 100 mls/hr DAILY NABIL Administration Protocol Dextrose/Sodium Chloride 1,000 mls @ 50 mls/hr 07/24/18 09:15 07/24/18 10:36 D5-1/2ns - IV 50 mls/hr ASDIR NABIL Administration Levothyroxine Sodium 50 mcg 07/23/18 17:05 07/24/18 08:05 Synthroid - PEG 50 mcg DAILY@0700 N[facility] Administration Lisinopril 20 mg 07/23/18 17:30 07/24/18 10:15 Prinivil PEG 20 mg DAILY NABIL Administration Non-Formulary Medication 28 mg 07/23/18 17:05 Memantine Hcl [Namenda Xr] PEG DAILY [facility] ASSESSMENT/PLAN: (1) Hypernatremia; resolved continue iv fluid started on tube feed (2) UTI (urinary tract infection) - on ceftrixone day 6 - Urine cx _ ecoil - ID on case - afebrile overnight (3) Acute metabolic encephalopathy as per daughter back to base line (4) HTN (hypertension) start her on home med (5) Hypothyroid synthroid through peg tube (6) HLD (hyperlipidemia) -continue statin (7) Alzheimer's dementia -continue namenda through peg tube - change position q2h 8) Thrombocytopenia hold lovenox for now start scd hit antibody sent . Fluid: D5 1/2 ns 50 electrolyte: repeat in am Nutrition: start tube feed DVT pro: scd dipso: med surg Visit type - Emergency Visit Emergency Visit: Yes ED Registration Date: 07/19/18 Care time: The patient presented to the Emergency Department on the above date and was hospitalized for further evaluation of their emergent condition. - New Patient This patient is new to me today: No - Critical Care Critical Care patient: No
--- NOTE | 2018-07-24 13:27 | PN ---
Progress Note, NETWORK ARCHITECT - Note Progress Note: Selected Entries 07/24/18 07/24/18 07/24/18 02:00 07:14 10:40 Breakfast Temperature 100.6 F H 98.5 F 98.2 F 07/24/18 12:24 Breakfast NPO Temperature Laboratory Tests 07/24/18 06:40 WBC 7.0 PEG placed. Consider supplemental trials of puree, as desired, at [place]. TF for now. HOB elevated.
[2018-07-24] MEDS: ATORVASTATIN CA 40 MG TABLET (FP) PEG SCH (22:23)
[2018-07-25] MEDS: LEVOTHYROXINE NA 50 MCG TABLET (FP) PEG SCH (06:40)
[2018-07-25 07:59] LABS: BASO % 0.4 % (0-2.0); EOS % 1.2 % (0-4.5); HEMATOCRIT 28.4 % (32.4-45.2); HEMOGLOBIN 9.3 GM/dL (10.7-15.3); LYMPH % 21.3 % (8-40); MCH 29.9 pg (25.7-33.7); MCHC 32.9 g/dl (32.0-36.0); MEAN CELL VOLUME 90.8 fl (80-96); MEAN PLT VOLUME 11.7 fl (7.5-11.1); MONO % 7.9 % (3.8-10.2); NEUT % 69.2 % (42.8-82.8); PLATELET COUNT 102 K/MM3 (134-434); RBC 3.12 M/mm3 (3.60-5.2); RDW 15.5 % (11.6-15.6); WHITE BLOOD COUNT 4.9 K/mm3 (4.0-10.0)
[2018-07-25 08:50] LABS: ALBUMIN 2.3 g/dl (3.4-5.0); ALK PHOS 108 U/L (45-117); ANION GAP 6 MMOL/L (8-16); BILIRUBIN,TOTAL 0.2 mg/dL (0.2-1); BLOOD UREA NITROGEN 8 mg/dL (7-18); CHLORIDE 112 mmol/L (98-107); CO2 25 mmol/L (21-32); CREATININE 0.6 mg/dL (0.55-1.3); GLUCOSE,RANDOM 100 mg/dL (74-106); MAGNESIUM 2.1 mg/dL (1.8-2.4); POTASSIUM 3.5 mmol/L (3.5-5.1); SGOT/AST 17 U/L (15-37); SGPT/ALT 15 U/L (13-61); SODIUM 143 mmol/L (136-145); TOT PROT 5.6 g/dl (6.4-8.2)
--- NOTE | 2018-07-25 09:04 | PN ---
Teaching Attending Note Name of Resident: Clarence Mcadams ATTENDING PHYSICIAN STATEMENT I saw and evaluated the patient. I reviewed the resident's note and discussed the case with the resident. I agree with the resident's findings and plan as documented. 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 LABS: CBC, BMP 07/25/18 06:30 07/25/18 06:30 MEDS: Active Medications Acetaminophen (Tylenol -) 650 mg PO Q4H PRN PRN Reason: FEVER Ceftriaxone Sodium 1 gm/ (Dextrose) 50 mls @ 100 mls/hr IVPB DAILY NABIL; Protocol Last Admin: 07/22/18 10:11 Dose: 100 mls/hr Dextrose (D5w -) 1,000 mls @ 100 mls/hr IV ASDIR [facility] Last Admin: 07/23/18 07:13 Dose: 100 mls/hr Potassium Chloride (Potassium Chloride 10 Meq Premix Ivpb -) 10 meq in 100 mls @ 100 mls/hr IVPB Q60M [facility] Stop: 07/23/18 11:59 Levothyroxine Sodium (Synthroid -) 50 mcg PO DAILY@0700 [facility] Last Admin: 07/23/18 06:01 Dose: Not Given Non-Formulary Medication (Memantine Hcl [Namenda Xr]) 28 mg PO DAILY [facility] ASSESSMENT AND PLAN: 78 yrs old F with advanced Dementia, Hypothyroidism, present with acute toxic metabolic encephalopathy due to poor Po intake leads to dehydration, Hypernatremia, worsening mental status, also UTI responded to IV Hydratin s/p PEG Plan; Thrombocytopenia stable no culture + can be switched PO abx F/U Hematology recommendations. Problem List - Problems (1) Acute metabolic encephalopathy Assessment/Plan: Due to dehydration and hypernatremia on dementia now at base line. Code(s): G93.41 - METABOLIC ENCEPHALOPATHY (2) Hypernatremia Assessment/Plan: Due to dehydration corrected Code(s): E87.0 - HYPEROSMOLALITY AND HYPERNATREMIA (3) HLD (hyperlipidemia) Assessment/Plan: On Statin Code(s): E78.5 - HYPERLIPIDEMIA, UNSPECIFIED (4) HTN (hypertension) Assessment/Plan: Well controlled Code(s): I10 - ESSENTIAL (PRIMARY) HYPERTENSION (5) Failure to thrive Assessment/Plan: Due to Dementia unable meet nutrition and hydration, s/p PEG F/U GI recommendation for PEG care and feeding. Code(s): NZB4959 - (6) Hypothyroid Assessment/Plan: On Levothyroxine Code(s): E03.9 - HYPOTHYROIDISM, UNSPECIFIED (7) Dementia Code(s): F03.90 - UNSPECIFIED DEMENTIA WITHOUT BEHAVIORAL DISTURBANCE (8) Thrombocytopenia Assessment/Plan: NStable at 101 discussed with the hematology Code(s): D69.6 - THROMBOCYTOPENIA, UNSPECIFIED
[2018-07-25] MEDS ORDERED: DEXTROSE 5%-WATER - 50 ML IVPB ONE (09:20)
[2018-07-25] MEDS ORDERED: cefTRIAXone SODIUM 1 GM VIAL ONE (09:20)
[2018-07-25] MEDS: LISINOPRIL 20 MG TABLET (FP) PEG SCH (09:34)
[2018-07-25] MEDS: BACITRACIN 15 GM TUBE TOPICAL OINTMENT TP SCH ×2 (09:47→22:43)
[2018-07-25] MEDS: DEXTROSE 5%-0.45% SALINE 1,000 ML IV SCH (10:22)
[2018-07-25] MEDS: CEFTRIAXONE 1 GM in DEXTROSE 5%-WATER - 50 ML IVPB SCH (10:23)
--- NOTE | 2018-07-25 12:15 | PN ---
Progress Note, WEIGHER AND CHARGER - Note Progress Note: Selected Entries 07/24/18 07/24/18 07/24/18 02:00 07:14 10:40 Breakfast Temperature 100.6 F H 98.5 F 98.2 F 07/24/18 12:24 Breakfast NPO Temperature Laboratory Tests 07/24/18 06:40 WBC 7.0 Selected Entries 07/25/18 07/25/18 07/25/18 02:00 06:00 09:45 Breakfast Temperature 98.9 F 98.2 F 97.9 F 07/25/18 11:54 Breakfast NPO Temperature Laboratory Tests 07/25/18 06:30 WBC 4.9 Pt alert today. PEG placed. Consider supplemental trials of puree,as desired,.. TF for now. HOB elevated.
[2018-07-25] MEDS: ATORVASTATIN CA 40 MG TABLET (FP) PEG SCH (22:43)
[2018-07-26] MEDS: LEVOTHYROXINE NA 50 MCG TABLET (FP) PEG SCH (06:17)
--- NOTE | 2018-07-26 08:00 | PN ---
Progress Note, Physician - Current Medication List Current Medications: Active Medications Acetaminophen (Tylenol Oral Solution -) 650 mg PEG Q4H PRN PRN Reason: FEVER Amoxicillin/Clavulanate Potassium (Augmentin 250 Mg/5 Ml Oral Suspension -) 500 mg PEG BID@0800,1730 [facility] Atorvastatin Calcium (Lipitor -) 40 mg PEG HS [facility] Last Admin: 07/25/18 22:43 Dose: 40 mg Bacitracin (Bacitracin -) 1 applic TP BID [facility] Stop: 07/28/18 21:59 Last Admin: 07/25/18 22:43 Dose: 1 applic Dextrose/Sodium Chloride (D5-1/2ns -) 1,000 mls @ 50 mls/hr IV ASDIR [facility] Last Admin: 07/25/18 10:22 Dose: Not Given Levothyroxine Sodium (Synthroid -) 50 mcg PEG DAILY@0700 [facility] Last Admin: 07/26/18 06:17 Dose: 50 mcg Lisinopril (Prinivil) 20 mg PEG DAILY [facility] Last Admin: 07/25/18 09:34 Dose: 20 mg Non-Formulary Medication (Memantine Hcl [Namenda Xr]) 28 mg PEG DAILY [facility] - Objective Vital Signs: Vital Signs Temperature 98.5 F 07/26/18 06:00 Pulse Rate 53 L 07/26/18 06:00 Respiratory Rate 17 07/26/18 06:00 Blood Pressure 151/50 L 07/26/18 06:00 O2 Sat by Pulse Oximetry (%) 95 07/25/18 21:00 Elderly F: not in distress HEENT: Mm moist, mild anemia NECK: No VD no bruit CHEST:CTA B/L CVS:S1S2 R no m/g/r ABD:S/P PEG No distention, non tender Bs + EXT: No tania afeet, no calf tenderness 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 Code(s): G93.41 - METABOLIC ENCEPHALOPATHY (2) Hypernatremia Assessment/Plan: Due to dehydration corrected Code(s): E87.0 - HYPEROSMOLALITY AND HYPERNATREMIA (3) HLD (hyperlipidemia) Assessment/Plan: On Statin Code(s): E78.5 - HYPERLIPIDEMIA, UNSPECIFIED (4) HTN (hypertension) Assessment/Plan: Well controlled Code(s): I10 - ESSENTIAL (PRIMARY) HYPERTENSION (5) Failure to thrive Assessment/Plan: Due to Dementia unable meet nutrition and hydration, s/p PEG F/U GI recommendation for PEG care and feeding. Code(s): GBQ2460 - (6) Hypothyroid Assessment/Plan: On Levothyroxine Code(s): E03.9 - HYPOTHYROIDISM, UNSPECIFIED (7) Dementia Assessment/Plan: Chronic Code(s): F03.90 - UNSPECIFIED DEMENTIA WITHOUT BEHAVIORAL DISTURBANCE (8) Thrombocytopenia Assessment/Plan: HIT ab -ve Stable at 105 discussed with the hematology no further evaluation indicated Code(s): D69.6 - THROMBOCYTOPENIA, UNSPECIFIED
[2018-07-26 08:11] LABS: BASO % 0.3 % (0-2.0); EOS % 1.6 % (0-4.5); HEMATOCRIT 28.7 % (32.4-45.2); HEMOGLOBIN 9.7 GM/dL (10.7-15.3); LYMPH % 29.1 % (8-40); MCH 30.7 pg (25.7-33.7); MCHC 33.9 g/dl (32.0-36.0); MEAN CELL VOLUME 90.5 fl (80-96); MEAN PLT VOLUME 11.5 fl (7.5-11.1); MONO % 9.3 % (3.8-10.2); NEUT % 59.7 % (42.8-82.8); PLATELET COUNT 105 K/MM3 (134-434); RBC 3.17 M/mm3 (3.60-5.2); RDW 15.6 % (11.6-15.6)
[2018-07-26] MEDS: AMOX TR/POTASSIUM CLAVULANATE 250 MG/5 ML BOTTLE PEG SCH ×2 (09:10→17:39)
[2018-07-26] MEDS: LISINOPRIL 20 MG TABLET (FP) PEG SCH (11:10)
[2018-07-26] MEDS: BACITRACIN 15 GM TUBE TOPICAL OINTMENT TP SCH ×2 (11:10→23:15)
--- NOTE | 2018-07-26 15:17 | CONSULT ---
Consult Consult Specialty:: Hematology Referred by:: Medicine Reason for Consultation:: Progressive thrombocytopenia - History of Present Illness Chief Complaint: Platelets dropping History of Present Illness: Patient with history at admission reported as below: "Ms Ng is a 78 year old female with Alzheimers dementia and Parkinsons who presents from home with her daughter for lethargy and anorexia. Daughter states that 3 weeks ago patient began to appear more tired than usual but was still interacting at baseline. However 3 days ago she became very tired and stopped eating and drinking. Daughter states she would put food in Ms Ng's mouth but the patient would push it out. Because of this she brought her in. She denies patient having fevers, coughing, throwing up, diarrhea, foul smelling urine, or swelling." Since admission has been treated empirically for a UTI, and and hypernatremia has been addressed - now apaprently back to baseline. 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: Alzheimer's, Dementia, Parkinson's Cardio/Vascular: Yes: HTN ...: No - Past Surgical History Past Surgical History: Yes: None - Alcohol/Substance Use Hx Alcohol Use: No History of Substance Use: reports: None - Smoking History Smoking history: Never smoked Have you smoked in the past 12 months: No - Social History ADL: Family Assistance History of Recent Travel: No Home Medications - Allergies Allergies/Adverse Reactions: Allergies Allergy/AdvReac Type Severity Reaction Status Date / Time strawberry Allergy Mild Hives Verified 07/19/18 11:56 tomato Allergy Mild Hives Verified 07/19/18 11:56 divalproex sodium Allergy Verified 07/19/18 11:56 [From Depakote] lisinopril Allergy Verified 07/19/18 11:56 No Known Drug Allergies Allergy Verified 07/19/18 11:56 quetiapine [From Seroquel] Allergy Verified 07/19/18 11:56 - Home Medications Home Medications: Ambulatory Orders Aspirin [ASA -] 81 mg PO DAILY 04/17/17 Atorvastatin Ca [Lipitor] 40 mg PO HS 04/17/17 Levothyroxine [Synthroid -] 50 mcg PO DAILY 04/17/17 Memantine HCl [Namenda Xr] 28 mg PO DAILY 04/17/17 Amlodipine Besylate [Norvasc -] 10 mg PO DAILY #30 tablet 06/17/18 Divalproex [Depakote -] 125 mg PO TID 06/17/18 Lisinopril 20 mg PO DAILY 06/17/18 Polyethylene Glycol 3350 [Miralax 119 gm Btl -] 17 g PO PRN PRN 06/17/18 Quetiapine Fumarate [Seroquel -] 25 mg PO HS 06/17/18 predniSONE [Deltasone -] 40 mg PO DAILY #4 tablet 06/18/18 Family Disease History - Family Disease History Family Disease History: Other: Daughter (HTN) Other Family History: daughter states multiple family members have hypertension Physical Exam Vital Signs: Vital Signs Temperature 98.6 F 07/26/18 11:24 Pulse Rate 71 07/26/18 11:24 Respiratory Rate 17 07/26/18 11:24 Blood Pressure 142/72 07/26/18 11:24 O2 Sat by Pulse Oximetry (%) 95 07/26/18 09:00 Constitutional: Yes: Well Nourished, Calm, Thin Eyes: Yes: Conjunctiva Clear, EOM Intact HENT: Yes: Atraumatic, Normocephalic Neck: Yes: Supple, Trachea Midline. No: Lymphadenopathy Cardiovascular: Yes: S1, S2. No: Murmur, Rub Respiratory: Yes: Regular, CTA Bilaterally Gastrointestinal: Yes: Normal Bowel Sounds, Soft. No: Hepatomegaly, Splenomegaly Extremities: Yes: WNL Edema: No Neurological: Yes: Alert. No: Oriented (Doesn't follow commands) ...Motor Strength: WNL Labs: CBC, BMP 07/26/18 07:00 07/25/18 06:30 Assessment/Plan Mild thrombocytopenia -patient presented with possible sepsis, with platelet count circa 250K, which dropped within first few days of admission and has stablized 100-110K over past 4 days. Likely non-specific to sepsis. HIT Ab negative. Since platelet count stable, and not within range at which she is at risk of hemorrhage, and also considering patient's exceptionally poor functional status , believe that observation alone is at this point the most appropriate course of action. Would expect platelet count to slowly revert to prior baseline value. Would note that all cell lines decreased during admission, likely attributable to hemodilution with hydration. As such her baseline platelet count is likely lower than 250K. See no utility in investigating at this time. Observation - further testing if new trends are noted. Will follow.
[2018-07-26] MEDS: DEXTROSE 5%-0.45% SALINE 1,000 ML IV SCH (17:43)
[2018-07-26] MEDS: ATORVASTATIN CA 40 MG TABLET (FP) PEG SCH (23:14)
[2018-07-27] MEDS: LEVOTHYROXINE NA 50 MCG TABLET (FP) PEG SCH (06:05)
[2018-07-27 08:44] LABS: BASO % 0.6 % (0-2.0); EOS % 0.9 % (0-4.5); HEMATOCRIT 31.8 % (32.4-45.2); HEMOGLOBIN 10.5 GM/dL (10.7-15.3); MCH 29.8 pg (25.7-33.7); MCHC 33.2 g/dl (32.0-36.0); MEAN CELL VOLUME 89.7 fl (80-96); MEAN PLT VOLUME 10.6 fl (7.5-11.1); MONO % 7.9 % (3.8-10.2); NEUT % 73.6 % (42.8-82.8); PLATELET COUNT 128 K/MM3 (134-434); RBC 3.54 M/mm3 (3.60-5.2); RDW 15.3 % (11.6-15.6); WHITE BLOOD COUNT 5.9 K/mm3 (4.0-10.0)
[2018-07-27] MEDS: AMOX TR/POTASSIUM CLAVULANATE 250 MG/5 ML BOTTLE PEG SCH ×2 (08:58→16:47)
[2018-07-27] MEDS: BACITRACIN 15 GM TUBE TOPICAL OINTMENT TP SCH ×2 (08:59→22:21)
[2018-07-27] MEDS: LISINOPRIL 20 MG TABLET (FP) PEG SCH (08:59)
[2018-07-27 10:04] LABS: ANION GAP 4 MMOL/L (8-16); BLOOD UREA NITROGEN 9 mg/dL (7-18); CALCIUM 8.3 mg/dL (8.5-10.1); CHLORIDE 106 mmol/L (98-107); CO2 30 mmol/L (21-32); CREATININE 0.7 mg/dL (0.55-1.3); GLUCOSE,RANDOM 108 mg/dL (74-106); POTASSIUM 4.4 mmol/L (3.5-5.1); SODIUM 141 mmol/L (136-145)
[2018-07-27] MEDS: MEMANTINE HCL 10 MG TABLET (FP) GT SCH ×2 (12:48→22:21)
--- NOTE | 2018-07-27 14:24 | PN ---
Progress Note, Physician Chief Complaint: No interval changes - Current Medication List Current Medications: Active Medications Acetaminophen (Tylenol Oral Solution -) 650 mg PEG Q4H PRN PRN Reason: FEVER Amoxicillin/Clavulanate Potassium (Augmentin 250 Mg/5 Ml Oral Suspension -) 500 mg PEG BID@0800,1730 [facility] Last Admin: 07/27/18 08:58 Dose: 5 ml Atorvastatin Calcium (Lipitor -) 40 mg PEG HS [facility] Last Admin: 07/26/18 23:14 Dose: 40 mg Bacitracin (Bacitracin -) 1 applic TP BID [facility] Stop: 07/28/18 21:59 Last Admin: 07/27/18 08:59 Dose: 1 applic Levothyroxine Sodium (Synthroid -) 50 mcg PEG DAILY@0700 [facility] Last Admin: 07/27/18 06:05 Dose: 50 mcg Lisinopril (Prinivil) 20 mg PEG DAILY [facility] Last Admin: 07/27/18 08:59 Dose: 20 mg Memantine (Namenda -) 10 mg GT BID [facility] Last Admin: 07/27/18 12:48 Dose: 10 mg - Objective Vital Signs: Vital Signs Temperature 97.6 F 07/27/18 09:02 Pulse Rate 60 07/27/18 09:02 Respiratory Rate 19 07/27/18 09:02 Blood Pressure 141/72 07/27/18 09:02 O2 Sat by Pulse Oximetry (%) 95 07/27/18 09:00 Elderly F: not in distress HEENT: Mm moist, mild anemia NECK: No VD no bruit CHEST:CTA B/L CVS:S1S2 R no m/g/r ABD:S/P PEG No distention, non tender Bs + EXT: No tania afeet, no calf tenderness 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 Code(s): G93.41 - METABOLIC ENCEPHALOPATHY (2) Hypernatremia Assessment/Plan: Due to dehydration corrected Code(s): E87.0 - HYPEROSMOLALITY AND HYPERNATREMIA (3) HLD (hyperlipidemia) Assessment/Plan: On Statin Code(s): E78.5 - HYPERLIPIDEMIA, UNSPECIFIED (4) HTN (hypertension) Assessment/Plan: Well controlled Code(s): I10 - ESSENTIAL (PRIMARY) HYPERTENSION (5) Failure to thrive Assessment/Plan: Due to Dementia unable meet nutrition and hydration, s/p PEG F/U GI recommendation for PEG care and feeding. Code(s): UOQ0455 - (6) Hypothyroid Assessment/Plan: On Levothyroxine Code(s): E03.9 - HYPOTHYROIDISM, UNSPECIFIED (7) Dementia Assessment/Plan: Chronic Code(s): F03.90 - UNSPECIFIED DEMENTIA WITHOUT BEHAVIORAL DISTURBANCE (8) Thrombocytopenia Assessment/Plan: HIT ab -ve improving 128 k discussed with the hematology no further evaluation indicated Code(s): D69.6 - THROMBOCYTOPENIA, UNSPECIFIED
[2018-07-27] MEDS: POLYETHYLENE GLYCOL 3350 119 GM BTL PO PRN (16:47)
[2018-07-27] MEDS: DEXTROSE 5%-0.45% SALINE 1,000 ML IV SCH (18:50)
[2018-07-27] MEDS ORDERED: PT OWN MED DRAWER 7, Y5N ONE (20:58)
--- NOTE | 2018-07-27 22:14 | PN ---
Progress Note (short form) - Note Progress Note: Patient seen in follow up. No events reported overnight. Inpatient Meds reviewed. Current Medications Generic Name Dose Route Start Last Admin Trade Name Rema PRN Reason Stop Dose Admin Acetaminophen 650 mg 07/23/18 17:21 07/27/18 16:47 Tylenol Oral Solution - PEG 650 mg Q4H PRN Administration FEVER Amlodipine Besylate 10 mg 07/28/18 10:00 Norvasc - PO DAILY [facility] Amoxicillin/Clavulanate Potassium 500 mg 07/26/18 08:00 07/27/18 16:47 Augmentin 250 Mg/5 Ml Oral Suspension - PEG 5 ml BID@0800,1730 [facility] Administration Artificial Tears 1 drop 07/27/18 22:00 Artificial Tears OU TID [facility] Atorvastatin Calcium 40 mg 07/23/18 22:00 07/26/18 23:14 Lipitor - PEG 40 mg HS [facility] Administration Bacitracin 1 applic 07/23/18 22:00 07/27/18 08:59 Bacitracin - TP 07/28/18 21:59 1 applic BID [facility] Administration Levothyroxine Sodium 50 mcg 07/23/18 17:05 07/27/18 06:05 Synthroid - PEG 50 mcg DAILY@0700 [facility] Administration Memantine 10 mg 07/27/18 12:30 07/27/18 12:48 Namenda - GT 10 mg BID [facility] Administration Polyethylene Glycol 17 gm 07/27/18 16:32 07/27/18 16:47 Miralax (For Daily Use) - PO 17 grams DAILY PRN Administration CONSTIPATION On Examination: Last Vital Signs Temp Pulse Resp BP Pulse Ox 98.9 F 83 18 107/70 95 07/27/18 19:52 07/27/18 19:52 07/27/18 19:52 07/27/18 19:52 07/27/18 09:00 General: In no acute distress, supine Chest: good air entry bilaterally, clear Neuro: Awake, non-communicative, as at baseline Labs: CBC, BMP 07/27/18 07:45 07/27/18 07:45 Assessment. Mild thrombocytopenia -patient presented with possible sepsis, with platelet count circa 250K, which dropped within first few days of admission and has stablized 100-110K over past 4 days. Likely non-specific to sepsis. HIT Ab negative. Since platelet count stable, and not within range at which she is at risk of hemorrhage, and also considering patient's exceptionally poor functional status , believe that observation alone is at this point the most appropriate course of action. Would expect platelet count to slowly revert to prior baseline value. Would note that all cell lines decreased during admission, likely attributable to hemodilution with hydration. As such her baseline platelet count is likely lower than 250K. Today platelet count improved to 128K. Ongoing observation - further testing if new trends are noted. Will sign off.
[2018-07-27] MEDS: ARTIFICIAL TEARS (POLYVINYL ALCOHOL) OPTH DROPS OU SCH (22:20)
[2018-07-27] MEDS: ATORVASTATIN CA 40 MG TABLET (FP) PEG SCH (22:21)
[2018-07-28] MEDS: ARTIFICIAL TEARS (POLYVINYL ALCOHOL) OPTH DROPS OU SCH ×2 (06:55→13:51)
[2018-07-28] MEDS: LEVOTHYROXINE NA 50 MCG TABLET (FP) PEG SCH (06:55)
[2018-07-28] MEDS: AMOX TR/POTASSIUM CLAVULANATE 250 MG/5 ML BOTTLE PEG SCH (08:54)
[2018-07-28] MEDS: MEMANTINE HCL 10 MG TABLET (FP) GT SCH (09:04)
[2018-07-28] MEDS: BACITRACIN 15 GM TUBE TOPICAL OINTMENT TP SCH (09:05)
[2018-07-28] MEDS: POLYETHYLENE GLYCOL 3350 119 GM BTL PO PRN (09:09)
[2018-07-28] MEDS ORDERED: amLODIPine BESYLATE 10 MG TABLET (FP) PO SCH (10:00)
[2018-07-28 10:25] LABS: BASO % 0.5 % (0-2.0); HEMATOCRIT 34.1 % (32.4-45.2); HEMOGLOBIN 11.1 GM/dL (10.7-15.3); LYMPH % 16.5 % (8-40); MCH 29.7 pg (25.7-33.7); MCHC 32.6 g/dl (32.0-36.0); MEAN CELL VOLUME 91.1 fl (80-96); MEAN PLT VOLUME 10.6 fl (7.5-11.1); MONO % 8.4 % (3.8-10.2); NEUT % 73.6 % (42.8-82.8); PLATELET COUNT 140 K/MM3 (134-434); RBC 3.75 M/mm3 (3.60-5.2); RDW 15.8 % (11.6-15.6); WHITE BLOOD COUNT 6.2 K/mm3 (4.0-10.0)
[2018-07-28 10:41] LABS: ANION GAP 7 MMOL/L (8-16); BLOOD UREA NITROGEN 11 mg/dL (7-18); CALCIUM 8.9 mg/dL (8.5-10.1); CHLORIDE 104 mmol/L (98-107); CO2 28 mmol/L (21-32); CREATININE 0.7 mg/dL (0.55-1.3); GLUCOSE,RANDOM 101 mg/dL (74-106); POTASSIUM 4.2 mmol/L (3.5-5.1); SODIUM 139 mmol/L (136-145)
--- NOTE | 2018-07-28 12:56 | DS ---
Physical Exam: SUBJECTIVE: Patient seen and examined OBJECTIVE: Vital Signs Period Temp Pulse Resp BP Sys/Torres Pulse Ox Last 24 Hr 97.5 F-98.9 F 70-94 18-18 106-137/50-80 98-98 PHYSICAL EXAM GENERAL: awake, non responsive ENT: dry mucous membranes. no oral thrush LUNGS: Breath sounds equal, clear to auscultation bilaterally, no wheezes, no crackles, no accessory muscle use. HEART: Regular rate and rhythm, S1, S2 ABDOMEN: Soft, nontender, nondistended, normoactive bowel sounds, no guarding, no rebound, peg tube in situ EXTREMITIES:, warm, well-perfused, no edema. PSYCH: Normal mood, normal affect. SKIN: Warm, dry LABS Laboratory Results - last 24 hr 07/28/18 07/28/18 09:50 09:50 WBC 6.2 RBC 3.75 Hgb 11.1 Hct 34.1 MCV 91.1 MCH 29.7 MCHC 32.6 RDW 15.8 H Plt Count 140 MPV 10.6 Absolute Neuts (auto) 4.6 Neutrophils % 73.6 Lymphocytes % 16.5 Monocytes % 8.4 Eosinophils % 1.0 Basophils % 0.5 Nucleated RBC % 0 Sodium 139 Potassium 4.2 Chloride 104 Carbon Dioxide 28 Anion Gap 7 L BUN 11 Creatinine 0.7 Creat Clearance w eGFR > 60 Random Glucose 101 Calcium 8.9 HOSPITAL COURSE: Ms Ng is a 78 year old female with Alzheimers dementia and Parkinsons who presents from home with her daughter for lethargy and anorexia. Daughter states that 3 weeks ago patient began to appear more tired than usual but was still interacting at baseline. However 3 days ago she became very tired and stopped eating and drinking. Daughter states she would put food in Ms Ng's mouth but the patient would push it out. Because of this she brought her in. She denies patient having fevers, coughing, throwing up, diarrhea, foul smelling urine, or swelling. In hospital fond to have acute metabloic encephalopathy likely from hypernatremia for which pt was treated with iV fluid D5W and later on switched to d5 1/2 ns and pts sodium level improved slowly. Pt was alos found to have uti for which she was treated wit iv antibiotic ceftriaxone and she has completed the course in hospital. Pt has dementia and was unable to meet nutrition requriment for which GI was consulted nd pt got peg tube and later on tube feed was started. Pt alos fond to have thrombocytopenia and lovenox was stopped, hematology was consulted. Pt started on scd and her platelets started to improve. Now pt is dc home in stable condition with vns. Tube feeds will be arranged by social service director. 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 2)Take care of PEG tubed; Flush peg tube with 30 cc water after meds and after feed. No dressing between external bolster and abdominal wall. Avoid excessive traction on peg tube . 3)Continue tube feed as advised. Jevity 1.5 @ 50 ml/hr with water flushes of 40 ml/hr via PEG. 4) Elevate head of the bead 35 degree at all time. 5) You are on amlodipine 10mg for blood pressure control. 6) turn position at least every 2 hour, keep bed sheet and skin dry. 7) take all the other medications as you were taking it before. You are not on seraquil and depakote anymore. 8) you have competed a course of antibiotic for UTI in hospital. 9) If you develop shortness of breath, chest pain, change in mental status or any new symptoms then call MD or go to hospital Date of Admission:07/19/18 Date of Discharge: 07/28/18 Minutes to complete discharge: 45 Discharge Summary Reason For Visit: UTI/HYPERNATREMIA/FEEDING PROBLEM IN ADULT Current Active Problems Acute metabolic encephalopathy (Acute) Dementia (Acute) Failure to thrive (Acute) HLD (hyperlipidemia) (Acute) HTN (hypertension) (Acute) Hypernatremia (Acute) Hypokalemia (Acute) Hypothyroid (Acute) Poor appetite (Acute) Thrombocytopenia (Acute) Thrush, oral (Acute) Condition: Stable - Instructions Diet, Activity, Other Instructions: 1)Follow up with your primary doctor. 2)Take care of PEG tubed; Flush peg tube with 30 cc water after meds and after feed. No dressing between external bolster and abdominal wall. Avoid excessive traction on peg tube . 3)Continue tube feed as advised. Jevity 1.5 @ 50 ml/hr with water flushes of 40 ml/hr via PEG. 4) Elevate head of the bead 35 degree at all time. 5) You are on amlodipine 10mg for blood pressure control. 6) turn position at least every 2 hour, keep bed sheet and skin dry. 7) take all the other medications as you were taking it before. You are not on seraquil and depakote anymore. 8) you have competed a course of antibiotic for UTI in hospital. 9) If you develop shortness of breath, chest pain, change in mental status or any new symptoms then call MD or go to hospital Referrals: Talon Gonsalez MD [Primary Care Provider] - 1 Week Tanner Pennington DO [Staff Physician] - 1 Week Disposition: VNS/HOME HEALTH CARE - Home Medications Comprehensive Discharge Medication List: Ambulatory Orders Aspirin [ASA -] 81 mg PO DAILY 04/17/17 Atorvastatin Ca [Lipitor] 40 mg PO HS 04/17/17 Levothyroxine [Synthroid -] 50 mcg PO DAILY 04/17/17 Memantine HCl [Namenda Xr] 28 mg PO DAILY 04/17/17 Amlodipine Besylate [Norvasc -] 10 mg PO DAILY #30 tablet 06/17/18 Polyethylene Glycol 3350 [Miralax 119 gm Btl -] 17 g PO PRN PRN 06/17/18 Polyvinyl Alcohol [Artificial Tears] 1 drop OU TID #1 drops 07/28/18 This patient is new to me today: No Emergency Visit: Yes ED Registration Date: 07/19/18 Care time: The patient presented to the Emergency Department on the above date and was hospitalized for further evaluation of their emergent condition. Critical Care patient: No - Discharge Referral Referred to [facility] Med P.C.: No
[2018-07-28 15:11] VITALS: BP 107/70; PULSE 81; TEMP 98.5
--- NOTE | 2018-07-28 15:39 | PN ---
Progress Note, DRILL BIT SHARPENER - Note Progress Note: Pt's daughter, Janae, requested that I reassess her mother's swallowing as she was going home today. She has a PEG for nutrition,hydration, meds. Selected Entries 07/27/18 07/27/18 07/27/18 02:00 05:57 09:02 Temperature 98.1 F 98.2 F 97.6 F 07/27/18 07/27/18 07/27/18 14:57 19:52 22:00 Temperature 97.5 F L 98.9 F 97.9 F 07/28/18 07/28/18 09:00 14:09 Temperature 97.5 F L 98.5 F Laboratory Tests 07/27/18 07/28/18 07:45 09:50 WBC 5.9 6.2 Head nod yes elicited when asked if she wanted to try applesauce. Oral holding noted with very delayed swallow, often not triggered.Once triggered, pharyngeal swallow rate and excursion was fair. IMP: high risk of malnutrition, dehydration, aspiration with po trials only. PEG feedings are necessary for nutrition, hydration and medication Occasional trials of pureed consistency can be attempted for pleasure, if swallow reflex is elicited in a timely fashion.Mouth care TIW, especially before PO trials. Pt's daughter was educated on compensatory strategies last week and called today to review and discuss results of swallowing re- evaluation. 1/2 tsp at a time. Tell pt to swallow. Monitor for swallow reflex. Use cup of ice with metal spoon,Cold spoon with gentle pressure to tongue to facilitate and stimulate swallow onset, if oral holding noted. Stop feeding if not swallowing, throat clearing, coughing, congested Pt's daughter reported given her mother whole banana pieces. I educated her on risk of chokig due to oral holding and delayed, sometimes absent swallow onset. I suggested only pureed consistency, maybe baby bananas, and a MBS as an out pt if she wants to try solids with her mother. Monitor for tolerance. NPO if cough,congestion, fever.
--- NOTE | 2018-07-28 17:10 | PN ---
Teaching Attending Note Name of Resident: Clarence Mcadams ATTENDING PHYSICIAN STATEMENT I saw and evaluated the patient. I reviewed the resident's note and discussed the case with the resident. I agree with the resident's findings and plan as documented. SUBJECTIVE: Unable to participate in medical interview OBJECTIVE: Afebrile, Hemodynamically Stable. Last Vital Signs Temp Pulse Resp BP Pulse Ox 98.5 F 81 18 107/70 98 07/28/18 14:09 07/28/18 14:09 07/28/18 14:09 07/28/18 14:09 07/28/18 09:00 HEENT - atraumatic, Normocephalic. Heart - S1, S2, RRR Lungs - good air entry bilaterally Abdomen - Soft, non-tender. PEG in situ, Bowel Sounds normal. Extremities - no edema/calf tenderness Neuro - Disoriented, non-verbal. Moving all 4 extremities. Laboratory Results - last 24 hr 07/28/18 07/28/18 09:50 09:50 WBC 6.2 RBC 3.75 Hgb 11.1 Hct 34.1 MCV 91.1 MCH 29.7 MCHC 32.6 RDW 15.8 H Plt Count 140 MPV 10.6 Absolute Neuts (auto) 4.6 Neutrophils % 73.6 Lymphocytes % 16.5 Monocytes % 8.4 Eosinophils % 1.0 Basophils % 0.5 Nucleated RBC % 0 Sodium 139 Potassium 4.2 Chloride 104 Carbon Dioxide 28 Anion Gap 7 L BUN 11 Creatinine 0.7 Creat Clearance w eGFR > 60 Random Glucose 101 Calcium 8.9 Current Medications Generic Name Dose Route Start Last Admin Trade Name Freq PRN Reason Stop Dose Admin Acetaminophen 650 mg 07/23/18 17:21 07/27/18 16:47 Tylenol Oral Solution - PEG 650 mg Q4H PRN Administration FEVER Amlodipine Besylate 10 mg 07/28/18 10:00 07/28/18 09:04 Norvasc - PO 10 mg DAILY NABIL Administration Artificial Tears 1 drop 07/27/18 22:00 07/28/18 13:51 Artificial Tears OU 1 drop TID NABIL Administration Atorvastatin Calcium 40 mg 07/23/18 22:00 07/27/18 22:21 Lipitor - PEG 40 mg HS NABIL Administration Bacitracin 1 applic 07/23/18 22:00 07/28/18 09:05 Bacitracin - TP 07/28/18 21:59 1 applic BID NABIL Administration Levothyroxine Sodium 50 mcg 07/23/18 17:05 07/28/18 06:55 Synthroid - PEG 50 mcg DAILY@0700 NABIL Administration Memantine 10 mg 07/27/18 12:30 07/28/18 09:04 Namenda - GT 10 mg BID NABIL Administration Polyethylene Glycol 17 gm 07/27/18 16:32 07/28/18 09:09 Miralax (For Daily Use) - PO 17 grams DAILY PRN Administration CONSTIPATION ASSESSMENT AND PLAN: 78 year old female with Parkinson's Disease, advanced Dementia, brought in by daughter with lethargy and anorexia. She was found to have Meabolic encephalopathy, Hypernatremia, and UTI whcih was treated with Ceftriaxone. Given her poor oral intake, decision was made for PEG which was inserted on this admission. 1. Acute Metabolic Encephalopathy atop Advanced Dementia - resolved. Multifactorial - sec to dehydration, UTI Currently at baseline mental status. Continue Namenda 2. Hypernatremia - secondary to dehydration, resolved with IV hydration. 3. Failure to Thrive, Anorexia secondary to Advanced Dementia s/p PEG Feeding as per Nutrition recommendations. 4. HTN - On Norvasc 5. HLD - Continue Lipitor 6. Hypothyrosidism - Continue Levothyroxine. 7. Thrombocytopenia HIT work-up negative Improving, Plts 128 Hematology evaluation appreciated. Medically Stable for discharge in the care of her daughter.
--- NOTE | 2018-07-31 15:56 | PN ---
Progress Note (short form) - Note Progress Note: Called at my office by patient's daughter that her mother hasn't had a BM in 6 days. I explained that without evaluating her it would be hard to determine if her mother is impacted or not or what her abdominal exam reveals. I advised that she take her mother to the ER for abdominal imaging and to evaluate for fecal impaction. She said that she would try an enema. Problem List - Problems (1) Poor appetite Code(s): R63.0 - ANOREXIA
== END 2018-07-28 18:03 | disposition home health service (06) | DRG 56 ==
LOC: JER 11:42 → JERBED 14:45 → J5S 17:57
PROVIDERS: ADMIT Internal Medicine
PROC: 3E0G76Z Introduction of Nutritional Substance into Upper GI, Via Natural or Artificial Opening (ICD-10-PCS; 2018-07-23)
PROC: 0DH63UZ Insertion of Feeding Device into Stomach, Percutaneous Approach (ICD-10-PCS; principal; 2018-07-23 10:15)
DX: G30.9 Alzheimer's disease, unspecified (principal); G93.41 Metabolic encephalopathy; G82.50 Quadriplegia, unspecified; E87.0 Hyperosmolality and hypernatremia; N39.0 Urinary tract infection, site not specified; B37.0 Candidal stomatitis; R63.0 Anorexia; R62.7 Adult failure to thrive; E78.5 Hyperlipidemia, unspecified; E03.9 Hypothyroidism, unspecified; F02.80 Dementia in other diseases classified elsewhere, unspecified severity, without behavioral disturbance, psychotic disturbance, mood disturbance, and anxiety; G20 Parkinson's disease; R00.1 Bradycardia, unspecified; I10 Essential (primary) hypertension; E87.6 Hypokalemia; D69.6 Thrombocytopenia, unspecified; E86.0 Dehydration; R13.10 Dysphagia, unspecified; Z74.01 Bed confinement status
CPT/HCPCS: 36415; 71045-TC-FY; 73560-TC-LT-FY; 80048; 80053; 81003; 81015; 83605; 83735; 84100; 84443; 84484; 85025; 85610; 85730; 86022; 87086; 87186; 93005; 93010; 97161-GP; 99283-25; J0131

== ENCOUNTER 2018-08-07 16:36 | Emergency (ER) | payer OTHER ==
--- NOTE | 2018-08-07 16:55 | PDOC ---
Attending Attestation - HPI HPI: 08/07/18 20:12 The patient is a 78-year-old female with a past medical history significant for Dementia and Parkinson's presents to the emergency department accompanied with daughter s/p an episode of possible episode of seizure. The patient is nonverbal at baseline, history obtained through the daughter. Per daughter, the patient was sitting in her wheelchair, when the daughter noticed her staring into the distance. The daughter reports she moved her hand in front of the patient's face, and the patient didnt blink. The daughter states the patient started to have shallow breathing and she decided to call 911. While she was calling 911, the patient made a notice as if she is gasping for her breath. The daughter reports she had noticed prior similar episodes and the patient did have an episode at the ER. Denies hx of DM, forming of the mouth, biting of the tongue. Denies any recent changes in medication, however, the daughter reports Dr. Monge saw the patient and prescribed Seroquel and a medication that starts with D. the daughter reports the patient had a reaction the drug and the hospital team through it was to lisinopril. The daughter states shes been on lisinopril for a long time, without reaction, and she withholds the medications. PCP: Dr. Levin Neurology: Dr. Monge. - Physicial Exam PE: 08/07/18 19:42 GENERAL: Awake and demented. The patient had episodes of staring off to different direction. HEAD: No signs of trauma EYES: PERRLA, EOMI, sclera anicteric, conjunctiva clear ENT: Auricles normal inspection, hearing grossly normal, nares patent, oropharynx clear without exudates. Moist mucosa NECK: Normal ROM, supple, no lymphadenopathy, JVD, or masses LUNGS: Breath sounds equal, clear to auscultation bilaterally. No wheezes, and no crackles HEART: Regular rate and rhythm, normal S1 and S2, no murmurs, rubs or gallops ABDOMEN: peg in place, has a diaper on. Soft, nontender. No guarding, no rebound. No masses EXTREMITIES: moving upper extremities. No led edema. No clubbing or cyanosis. No cords, erythema, or tenderness NEUROLOGICAL: Awake and demented. Per daughter, the patient is at baseline mental status. Nonverbal at baseline. SKIN: Warm, Dry, normal turgor, no rashes or lesions noted. - Medical Decision Making 08/07/18 19:43 Documentation prepared by Melodie Serrano, acting as outside medical sales representative for Ning Cruz DO. 08/07/18 20:[address] Monge. <Melodie Serrano - Last Filed: 08/07/18 20:42> - Resident Resident Name: Patricia Gabriel - ED Attending Attestation I have performed the following: I have examined & evaluated the patient, The case was reviewed & discussed with the resident, I agree w/resident's findings & plan, Exceptions are as noted - Medical Decision Making 08/07/18 16:55 I, Dr. Ning Cruz DO, attest that this document has been prepared under my direction and personally reviewed by me in its entirety. I further attest, that it accurately reflects all work, treatment, procedures and medical decision -making performed by me. 08/07/18 18:15 a/p: 78yo female with dementia and parkinsons with an episode of unresponsive staring episode that lasted a few min earlier today -daughter at the bedside and is the software design analyst -states there have been a few episodes of staring over the last few days -peg recently placed 2 weeks ago -urinating more freq -pt unable to provide any hx -currently at baseline ms -no shaking, no tongue biting or foaming at the mouth -no foul odor to the urine -will send labs, head ct, cxr, ekg -will monitor and reassess 08/07/18 19:39 cxr clear 08/07/18 20:59 labs reviewed and stable case discussed with Dr. Monge who will see patient in the office tomorrow daughter updated 08/07/18 21:03 daughter updated on the case and the plan to follow up with dr. monge pt has been at the baseline ms while in the ED 08/07/18 21:06 ua negative 08/07/18 21:15 daughter wants to take the patient home pt stable for dc to home <Ning Cruz - Last Filed: 08/07/18 21:15> Heart Score/ECG Review - ECG Intrepretation Comment:: 08/07/18 19:37 sinus at 73, nl axis, nl interval, no acute st/t wave findings <Ning Cruz - Last Filed: 08/07/18 21:15>
--- NOTE | 2018-08-07 17:28 | PDOC ---
History of Present Illness - General Stated Complaint: SEIZURE Time Seen by Provider: 08/07/18 16:54 - History of Present Illness Initial Comments: Ana Ng is a 78yo woman with a PMH of Alzheimer's, Parkinson's, HTN, HLD, hypothyroid, behavioral disturbance who was brought by her daughter for an episode of unresponsiveness today. The daughter states that Ms Ng was with an aide at home, and the aide yelled for her to come over. Ms Ng was staring blankly off into space and would not respond at all to any stimuli. The daugher called 911 because she thought her mother was having a "silent seizure." She says there may have been 2 similar episodes earlier this week that lasted a few seconds. When asked if her mother may have fainted, she states no because she was sitting in a chair. Per the daughter, Ms Ng's eyes remained open. She did not have any shaking , apparently focal neurological deficits, or incontinence. She did not fall. There was no apparent post-ictal state. As far as her daughter knows, Ms Ng has not had any recent fevers, vomiting, change in urinary or bowel output, or sign of pain. She has been doing well with her tube feeding, and has had no other new symptoms. Ms Ng is watched at home by an aide 12 hours per day, and her daughter cares for her at night. Past History - Past Medical History Allergies/Adverse Reactions: Allergies Allergy/AdvReac Type Severity Reaction Status Date / Time strawberry Allergy Mild Hives Verified 07/19/18 11:56 tomato Allergy Mild Hives Verified 07/19/18 11:56 divalproex sodium Allergy Verified 07/19/18 11:56 [From Depakote] lisinopril Allergy Verified 07/19/18 11:56 No Known Drug Allergies Allergy Verified 07/19/18 11:56 quetiapine [From Seroquel] Allergy Verified 07/19/18 11:56 Home Medications: Ambulatory Orders Aspirin [ASA -] 81 mg PO DAILY 04/17/17 Atorvastatin Ca [Lipitor] 40 mg PO HS 04/17/17 Levothyroxine [Synthroid -] 50 mcg PO DAILY 04/17/17 Memantine HCl [Namenda Xr] 28 mg PO DAILY 04/17/17 Amlodipine Besylate [Norvasc -] 10 mg PO DAILY #30 tablet 01/22/19 Polyethylene Glycol 3350 [Miralax 119 gm Btl -] 17 g PO PRN PRN 06/17/18 Polyvinyl Alcohol [Artificial Tears] 1 drop OU TID #1 drops 07/28/18 Cardiac Disorders: Yes (bradycardia) COPD: No Dementia: Yes (ALZHEIMERS.) Disorders: (UTI) HTN: Yes Hypercholesterolemia: Yes Thyroid Disease: Yes (hypothyroid) - Suicide/Smoking/Psychosocial Hx Smoking History: Never smoked Have you smoked in the past 12 months: No Hx Alcohol Use: No Drug/Substance Use Hx: No Substance Use Type: None Hx Substance Use Treatment: No Review of Systems - Review of Systems Comments:: Obtained from daughter General: No known fevers, no weight loss HEENT: No rhinorrhea Pulm: No recent cough GI: No nausea/vomiting, no change in bowel habits : No change in urinary output, no unusual odor Skin: +small decub ulcer, no rash *Physical Exam - Physical Exam Comments: General: Comfortable, no acute distress HEENT: PERRL, EOMI, MMM, normal neck ROM, no LAD Cards: RRR, no murmur appreciated Pulm: Comfortable on room air, clear to auscultation bilaterally Abd: Soft, nontender, nondistended. g-tube in place Ext: Atraumatic. No LE edema. Vasc: Extremities WWP Skin: Normal color, no rashes or lesions on visible skin (clothed, in hallway) Neuro: Awake. CN grossly intact. Does not respond to questions, does not speak ED Treatment Course - LABORATORY CBC & Chemistry Diagram: 08/07/18 18:18 08/07/18 18:18 - RADIOLOGY Radiology Studies Ordered: Category Date Time Status HEAD CT WITHOUT CONTRAST [CT] Stat CT Scan 08/07/18 17:25 Ordered CHEST X-RAY PORTABLE* [RAD] Stat Radiology 08/07/18 17:24 Ordered Medical Decision Making - Medical Decision Making 08/07/18 17:26 Ana Ng is a 78yo woman with a PMH of Alzheimer's, Parkinson's, HTN, HLD, hypothyroid, behavioral disturbance who was brought by her daughter for an episode of unresponsiveness today. The daughter is concerned for a "silent seizure" though Ms Ng does not have a history of seizure, h/o trauma, fevers, or other new symptoms. - Pt poorly responsive, does not respond to questioning. - Seizure v syncope most likely. Could be worsening of known alzheimer's or parkinsons. Possibly due to infection, most likely UTI as pt is diapered and has know other symptoms. Will r/o cardiac event - CBC, chemistry, trop, EKG, UA, UCx, CXR, CT head 08/07/18 20:05 - Patient seen by Dr Cruz. Daughter states that she is not compliant with meds recommended by Dr Keene, does not typically give - Will finish CT and then contact Dr Keene 08/07/18 20:30 - CBC and chemistry unremarkable - Trop and UA pending - CT completed. No acute abnormalities seen 08/07/18 21:11 - Labs all WNL - Discussed with Dr Keene. Will see in his office at any time, will discuss medication changes if needed at that time. - Plan to discharge home with neuro follow up Discussed with Dr Cruz. Patricia Gabriel PGY1 *DC/Admit/Observation/Transfer Diagnosis at time of Disposition: Episode of unresponsiveness - Discharge Dispostion Disposition: HOME Condition at time of disposition: Stable Decision to Admit order: No - Referrals Referrals: Eugene Keene MD [Staff Physician] - - Patient Instructions Printed Discharge Instructions: DI for Altered Mental Status Additional Instructions: Discharge Instructions: - Ana Ng was seen in the ER for an episode of unresponsiveness - Labs including a blood count, electrolytes, and urinalysis were completed. An EKG and blood test were done to check the heart, and a chest xray was taken to make sure there was no lung problem. All of these tests were normal. - Please continue to take all home medications as prescribed. - Dr Keene was contacted regarding the results. He will see Ms Ng within the next few days in his office. Please call in the morning to schedule an appointment. He will discuss medication choices at that time. - Return to the ER or seek immediate medical care for any worsening symptoms, one-sided neurological problems such as weakness or facial droop, change in level of consciousness (eg difficult to wake) or any other medical emergency. - Post Discharge Activity
[2018-08-07 17:47] VITALS: BP 112/63; PULSE 52; TEMP 98; BMI 22.3
[2018-08-07 19:00] LABS: BASO % 0.8 % (0-2.0); EOS % 0.4 % (0-4.5); HEMATOCRIT 33.7 % (32.4-45.2); HEMOGLOBIN 11.1 GM/dL (10.7-15.3); LYMPH % 11.6 % (8-40); MCH 30.3 pg (25.7-33.7); MCHC 32.9 g/dl (32.0-36.0); MEAN CELL VOLUME 91.8 fl (80-96); MEAN PLT VOLUME 9.4 fl (7.5-11.1); MONO % 5.4 % (3.8-10.2); NEUT % 81.8 % (42.8-82.8); PLATELET COUNT 262 K/MM3 (134-434); RBC 3.66 M/mm3 (3.60-5.2); WHITE BLOOD COUNT 8.2 K/mm3 (4.0-10.0)
[2018-08-07 20:08] LABS: CREATININE 0.8 mg/dL (0.55-1.3)
[2018-08-07 20:09] LABS: ALBUMIN 3.1 g/dl (3.4-5.0); CO2 24 mmol/L (21-32)
[2018-08-07 20:50] LABS: URINE APPEARANCE CLEAR; URINE BILIRUBIN NEGATIVE (<2.0 mg/dL); URINE COLOR LTYELLOW; URINE GLUCOSE (UA) NEGATIVE (NEGATIVE); URINE KETONE NEGATIVE (NEGATIVE); URINE LEUK ESTERASE NEGATIVE (NEGATIVE); URINE NITRITE NEGATIVE (NEGATIVE); URINE PROTEIN NEGATIVE (NEGATIVE); URINE UROBILINOGEN NEGATIVE mg/dL (0.2-1.0)
[2018-08-07 20:52] LABS: ALK PHOS 122 U/L (45-117); ANION GAP 9 MMOL/L (8-16); BILIRUBIN,TOTAL 0.3 mg/dL (0.2-1); BLOOD UREA NITROGEN 18 mg/dL (7-18); CHLORIDE 105 mmol/L (98-107); GLUCOSE,RANDOM 101 mg/dL (74-106); MAGNESIUM 2.4 mg/dL (1.8-2.4); PHOSPHOROUS 4.4 mg/dL (2.5-4.9); POTASSIUM 4.7 mmol/L (3.5-5.1); SGOT/AST 23 U/L (15-37); SGPT/ALT 24 U/L (13-61); SODIUM 138 mmol/L (136-145); TOT PROT 7.4 g/dl (6.4-8.2)
--- NOTE | 2018-08-08 11:02 | EKG ---
Test Reason : Blood Pressure : / mmHG Vent. Rate : 073 BPM Atrial Rate : 073 BPM P-R Int : 106 ms QRS Dur : 080 ms QT Int : 394 ms P-R-T Axes : 067 079 064 degrees QTc Int : 434 ms NORMAL SINUS RHYTHM POSSIBLE RIGHT VENTRICULAR HYPERTROPHY Confirmed by BABATUNDE REED MD ([id number]) on 08/08/2018 11:01:59 AM Referred By: Confirmed By:BABATUNDE REED MD
== END 2018-08-07 23:08 | disposition home or self-care (01) ==
LOC: JER 16:36
DX: R41.89 Other symptoms and signs involving cognitive functions and awareness (principal); G30.8 Other Alzheimer's disease; F02.81 Dementia in other diseases classified elsewhere, unspecified severity, with behavioral disturbance; G31.83 Neurocognitive disorder with Lewy bodies; I10 Essential (primary) hypertension; E78.5 Hyperlipidemia, unspecified; E03.9 Hypothyroidism, unspecified; Z87.440 Personal history of urinary (tract) infections
CPT/HCPCS: 36415; 70450-TC; 71045-TC-FY; 80053; 81003; 82550; 83735; 84100; 84484; 85025; 87086; 93005; 93010; 99284-25

== ENCOUNTER 2018-10-25 18:56 | Emergency (ER) | payer OTHER ==
[2018-10-25 19:11] VITALS: BP 137/119; PULSE 114; BMI 20.9
--- NOTE | 2018-10-25 20:27 | PDOC ---
History of Present Illness - General Chief Complaint: Seizure Stated Complaint: Seizure Time Seen by Provider: 10/25/18 19:11 - History of Present Illness Initial Comments: Ana Ng is a 78yo woman with a PMH of Alzheimer's, Parkinson's, HTN, HLD, hypothyroid, seizures, nonverbal at baseline, on tube feeding who presents with a witnessed seizure this morning as well as unusually poor responsiveness today. Her daughter, who is her primary caregiver, says that Ms Ng had her typical seizure this morning. The daughter noted her eyes roll back in her head, and she became limp. The seizure lasted about 3 minutes, slightly longer than the 1-2 minutes she typically sees. Later in the day, Ms Ng was difficult to wake. Her daughter is concerned that both the seizure and poor responsiveness are due to a UTI, as she has seen similar lack of energy and sleepiness with UTI's in the past. As far as she knows, there have not been any recent symptoms including urinary frequency, foul urine odor, hematuria, abdominal pain, feeding intolerance, or fevers/chills. She did recently stop all oral medications, but most were changed to the same dose in liquid form. The only med she stopped is memantine. Past History - Past Medical History Allergies/Adverse Reactions: Allergies Allergy/AdvReac Type Severity Reaction Status Date / Time strawberry Allergy Mild Hives Verified 10/25/18 19:11 tomato Allergy Mild Hives Verified 10/25/18 19:11 divalproex sodium Allergy Verified 10/25/18 19:11 [From Depakote] lisinopril Allergy Verified 10/25/18 19:11 No Known Drug Allergies Allergy Verified 07/19/18 11:56 quetiapine [From Seroquel] Allergy Verified 10/25/18 19:11 Home Medications: Ambulatory Orders Aspirin [ASA -] 81 mg PO DAILY 04/17/17 Atorvastatin Ca [Lipitor] 40 mg PO HS 04/17/17 Levothyroxine [Synthroid -] 50 mcg PO DAILY 04/17/17 Memantine HCl [Namenda Xr] 28 mg PO DAILY 04/17/17 Amlodipine Besylate [Norvasc -] 10 mg PO DAILY #30 tablet 06/17/18 Polyethylene Glycol 3350 [Miralax 119 gm Btl -] 17 g PO PRN PRN 06/17/18 Polyvinyl Alcohol [Artificial Tears] 1 drop OU TID #1 drops 07/28/18 Nitrofurantoin 100 mg PO BID 7 Days #60 ml 10/25/18 Polyethylene Glycol 3350 [Miralax (For Daily Use) -] 17 gm PO DAILY #1 bottle Cardiac Disorders: Yes (bradycardia) COPD: No Dementia: Yes (ALZHEIMERS.) Disorders: (UTI) HTN: Yes Hypercholesterolemia: Yes Thyroid Disease: Yes (hypothyroid) - Suicide/Smoking/Psychosocial Hx Smoking History: Never smoked Have you smoked in the past 12 months: No Hx Alcohol Use: No Drug/Substance Use Hx: No Substance Use Type: None Hx Substance Use Treatment: No Review of Systems - Review of Systems Comments:: Could not obtain, pt nonverbal *Physical Exam - Vital Signs Last Vital Signs Temp Pulse Resp BP Pulse Ox 114 H 18 137/119 H 95 10/25/18 18:58 10/25/18 18:58 10/25/18 18:58 10/25/18 18:58 - Physical Exam Comments: General: Very thin, constant movements HEENT: PERRL, EOMI, constant grinding teeth, white plaque on posterior tongue, Cards: RRR, no murmur appreciated Pulm: Comfortable on room air, clear to auscultation bilaterally on anterior and lateral exam Abd: Soft, nontender, nondistended. PEG in place Ext: Atraumatic. Moves all extremities. No LE edema Vasc: Extremities WWP Skin: Normal color, no rashes or lesions noted Neuro: Awake, nonverbal, responsive to light, increased tone in extremities ED Treatment Course - LABORATORY CBC & Chemistry Diagram: 10/25/18 19:55 10/25/18 19:55 Medical Decision Making - Medical Decision Making Ana Ng is a 78yo woman with a PMH of Alzheimer's, Parkinson's, HTN, HLD, hypothyroid, seizures, nonverbal at baseline, on tube feeding who presents with a witnessed seizure this morning as well as unusually poor responsiveness today. Her daughter is concerned that she may have a UTI as she has had similar symptoms in the past. - Seizure appears typical of previous per daughter's description. Meds recently changed from depakote to liquid valproic acid. Will check level - Appears to be at baseline currently - CBC, CMP, TSH. UA, UCx by straight cath 10/25/18 21:27 - Labs reviewed. Notable for elevated TSH, low valproic acid levels. May need medications adjusted - UA positive. Will give dose of antibiotics here and prescription for home - Results discussed with pt's daughter. Will follow up with PMD See and discussed with Dr Nahum Gabriel PGY1 *DC/Admit/Observation/Transfer Diagnosis at time of Disposition: UTI (urinary tract infection) - Discharge Dispostion Disposition: HOME Condition at time of disposition: Stable Decision to Admit order: No - Prescriptions Prescriptions: Nitrofurantoin 100 mg PO BID 7 Days #60 ml Polyethylene Glycol 3350 [Miralax (For Daily Use) -] 17 gm PO DAILY #1 bottle - Referrals Schedule a call back: Urine culture sensitivities Referrals: Eugene Keene MD [Staff Physician] - - Patient Instructions Printed Discharge Instructions: DI for Urinary Tract Infection (UTI) Additional Instructions: Discharge Instructions: You were seen in the ED for a seizure this morning and low energy. You were found to have a urinary tract infection. Your blood tests also showed that your levothyroxine (thyroid) and valproic acid (seizure) medications likely need to be adjusted. Please follow up with your regular doctor and the neurologist within the next 1-2 weeks. You have been prescribed an antibiotic for the UTI. Please take this twice daily for 7 days. Do not stop taking it early. It is recommended that you continue to take miralax daily to prevent constipation as this can contribute to UTI's. Seek immediate care for worsening symptoms, additional seizures, fever to 101F, difficulty breathing, or any medical emergency. - Post Discharge Activity
[2018-10-25 20:35] LABS: EPI CELLS 4.6 /HPF (0-5/HPF); HYALINE CASTS 3 /lpf (0-8); URINE APPEARANCE CLOUDY; URINE BILIRUBIN NEGATIVE (NEGATIVE); URINE COLOR YELLOW; URINE GLUCOSE (UA) NEGATIVE (NEGATIVE); URINE KETONE NEGATIVE (NEGATIVE); URINE LEUK ESTERASE 3+ (NEGATIVE); URINE NITRITE NEGATIVE (NEGATIVE); URINE PROTEIN NEGATIVE (NEGATIVE); URINE WBC 45 /hpf (0-5)
[2018-10-25 20:37] LABS: ALBUMIN 2.5 g/dl (3.4-5.0); BILIRUBIN,TOTAL 0.4 mg/dL (0.2-1); CREATININE 0.8 mg/dL (0.55-1.3); MAGNESIUM 2.5 mg/dL (1.8-2.4); PHOSPHOROUS 3.8 mg/dL (2.5-4.9); POTASSIUM 4.2 mmol/L (3.5-5.1); TOT PROT 7.9 g/dl (6.4-8.2)
[2018-10-25 20:42] LABS: URINE RBC 3.9 /hpf (0-4)
[2018-10-25 21:00] LABS: BASO % 0.7 % (0-2.0); EOS % 0.3 % (0-4.5); HEMOGLOBIN 11.5 GM/dL (10.7-15.3); LYMPH % 14.9 % (8-40); MCH 28.7 pg (25.7-33.7); MCHC 31.8 g/dl (32.0-36.0); MEAN CELL VOLUME 90.2 fl (80-96); MEAN PLT VOLUME 9.5 fl (7.5-11.1); MONO % 7.3 % (3.8-10.2); NEUT % 76.8 % (42.8-82.8); PLATELET COUNT 366 K/MM3 (134-434); RBC 3.99 M/mm3 (3.60-5.2); RDW 16.4 % (11.6-15.6)
[2018-10-25] MEDS ORDERED: VALPROATE SODIUM 250 MG/5 ML UNIT DOSE CUP PO SCH (21:00)
--- NOTE | 2018-10-25 21:05 | PDOC ---
Documentation entered by Vidya Virk SCRIBE, acting as scribe for Iglesia Sidhu MD. Iglesia Sidhu MD: This documentation has been prepared by the margaretibe, Vidya Virk SCRIBE, under my direction and personally reviewed by me in its entirety. I confirm that the documentation accurately reflects all work, treatment, procedures, and medical decision making performed by me. Attending Attestation - Resident Resident Name: NeryPatricia - [facility] HPI: 10/25/18 20:40 The patient is a 78 year old female with a significant past medical history of Alzheimers( non-verbal at baseline), Parkinsons hypertension, hyperlipidemia and hypothyroidism who presents to the emergency department via EMS with a witnessed seizure earlier today. As per the patient's daughter at bedside who is the primary environmental studies faculty member of the patient, the patient had a noted seizure for about 3 minutes by which her eyes rolled to the back of her head. The patient's daughter states that the patient has noted seizures in the past but they do not usually last this long. It is noted that the patient has experienced an episode like this in the past by which she was noted to have recurring UTIs. it is noted that the patient had a recent placement of a peg 4 months ago and she gets 1000ml of fluids with 1 feeding a day. The patient's daughter reports some noted increased sleepiness. No other symptoms or complaints. reported. - Physicial Exam PE: 10/25/18 21:00 Patient is awake, nonverbal, does not follow commands, does not track M.D. during the evaluation; Normocephalic, atraumatic PERRLA, I'm unable to test extraocular movements + Bruxism No dental malocclusion; mucous membranes are moist + Hairy leukoplakia of the tongue CTA RRR No obvious extremity deformity + Hypertonicity of upper and lower extremities No petechial rash - Medical Decision Making 10/25/18 21:03 Patient 78-year-old female with history of advanced dementia, nonverbal at baseline, history of seizure disorders on valproic acid via PEG tube presents after a witnessed nonconvulsive seizure that lasted approximately 3 minutes followed by a prolonged period of listlessness and lethargy. In the ER, patient is awake and alert, with vital signs difficult to obtain due to patient's lack of cooperation. Patient is afebrile. Patient is awake, nonverbal and does not follow commands. CBC reveals no evidence of leukocytosis. CMP reveals mildly elevated magnesium and TSH. Sodium is within normal limit. Urinalysis is consistent with pyuria. Valproic acid is noted to be minimally below the therapeutic level. We'll administer additional dose of valproate via the PEG tube. Will treat UTI with Macrobid based on previous culture and sensitivities. Will discharge.
[2018-10-25] MEDS ORDERED: cefTRIAXone SODIUM 1 GM VIAL ONE (21:16)
--- NOTE | 2018-10-29 15:43 | EKG ---
Test Reason : Blood Pressure : / mmHG Vent. Rate : 112 BPM Atrial Rate : 112 BPM P-R Int : 100 ms QRS Dur : 076 ms QT Int : 336 ms P-R-T Axes : 051 078 024 degrees QTc Int : 458 ms POOR DATA QUALITY, INTERPRETATION MAY BE ADVERSELY AFFECTED SINUS TACHYCARDIA WITH SHORT MT POSSIBLE LATERAL INFARCT , AGE UNDETERMINED ABNORMAL ECG WHEN COMPARED WITH ECG OF 07-AUG-2018 19:23, VENT. RATE HAS INCREASED BY 39 BPM NONSPECIFIC T WAVE ABNORMALITY NOW EVIDENT IN INFERIOR LEADS Confirmed by ROMULO BALL, JAYE ([id number]) on 10/29/2018 3:43:33 PM Referred By: Confirmed By:JAYE SEBASTIAN MD
== END 2018-10-25 22:52 | disposition home or self-care (01) ==
LOC: JER 18:56
DX: N39.0 Urinary tract infection, site not specified (principal); G40.909 Epilepsy, unspecified, not intractable, without status epilepticus; G30.9 Alzheimer's disease, unspecified; F02.80 Dementia in other diseases classified elsewhere, unspecified severity, without behavioral disturbance, psychotic disturbance, mood disturbance, and anxiety; G20 Parkinson's disease; I10 Essential (primary) hypertension; E78.5 Hyperlipidemia, unspecified; E03.8 Other specified hypothyroidism; Z93.1 Gastrostomy status
CPT/HCPCS: 36415; 80053; 80164; 81003; 83735; 84100; 84443; 85025; 87086; 93005; 93010; 96372; 99282-25

== ENCOUNTER 2018-11-16 14:52 | Inpatient (IN) | payer OTHER ==
[2018-11-16 16:15] LABS: EPI CELLS 6.8 /HPF (0-5/HPF); HYALINE CASTS 4 /lpf (0-8); URINE APPEARANCE CLOUDY; URINE BACTERIA 1696.8 /hpf (NEGATIVE); URINE BILIRUBIN NEGATIVE (NEGATIVE); URINE COLOR DK YELLOW; URINE GLUCOSE (UA) NEGATIVE (NEGATIVE); URINE KETONE NEGATIVE (NEGATIVE); URINE LEUK ESTERASE TRACE (NEGATIVE); URINE NITRITE NEGATIVE (NEGATIVE); URINE PROTEIN 1+ (NEGATIVE); URINE RBC 7 /hpf (0-4); URINE UROBILINOGEN 4.0 E.U/dl mg/dL (0.2-1.0); URINE WBC 5 /hpf (0-5)
--- NOTE | 2018-11-16 16:22 | PDOC ---
History of Present Illness - General Chief Complaint: Tremors Stated Complaint: AMS Time Seen by Provider: 11/16/18 15:05 History Source: Family (Daughter present at bedside. ), Old Records Exam Limitations: Dementia, Physical Impairment - History of Present Illness Initial Comments: HPI: 78 y/o female presenting to [facility] ER accompanied by daughter, pts primary daycare teacher. HPI limited as pts is nonverbal at baseline secondary to advanced Parksinsons disease and Alzheimers diseases. Daughter has several items of concern, which include 1) an episode of rhythmic arm movements that were more aggerated than her normal rhythmic arm movements; episode lasted approx. 1-2 minutes. 2) Pt opened her eyes wide and let her head hang back for approx. 3 minutes. 3) Pt has stopped swallowing in the past three weeks and is now occasionally make a rasping noise, that seems to be positionally dependent. 4 ) Pt has a non healing decubitus ulcer. Pt is now solely fed via PEG tube. Daughter manages feeding and medication administration. Medical Hx: - Alzheimers Disease (non-verbal at baseline) - Parkinsons Disease - Hypertension - Hyperlipidemia - Hypothyroidism - S/p PEG placement (Dr. Pennington on 23 Jul 2018) Review of Systems: Unable to obtain secondary to pts condition Physical Examination: Constitutional: Nontoxic elderly adult female in no acute distress or obvious discomfort. Found semi-fowlers on hospital bed. Eyes open spontaneously. Withdrawals locally to pain. Head: Normocephalic. No obvious external signs of trauma. Eyes: Sclerae white. Nose: No nasal discharge. Cardiovascular / Chest: Mildly tachycardic rate with regular rhythm. No murmur, rubs, clicks, or gallops. Peripheral pulses: radial pulses full. Respiratory: Breathing unlabored. Equal chest rise and fall. Clear to auscultation bilaterally. No stridor, no wheezing, no rhonchi. Gastrointestinal: abdomen is soft and non-distended. PEG tube inserted into LUQ ; site well appearing without erythema, purulent discharge, or fluctuance. Neuro: Alert. Withdrawals locally to pain. Arms stiff with cogwheel rigidity. Skin: 2cm x 2cm stage 2 decubitus ulcer without purulent discharge, surrounding erythema, or devitalized tissue. Globally, skin is warm and dry. MDM: *Reviewed vital signs, nursing notes, and prior visit documentation (if available). National Early Warning Score (NEWS) 2 RESULT SUMMARY: 3 points, Low Risk INPUTS: Respiratory rate, breaths per minute > 0 = 12-20 Hypercapnic respiratory failure > 0 = No SpO? > 0 = ?96% Room air or supplemental O? > 0 = Room air Temperature > 0 = 36.1-38.0C (96.9-100.4F) Systolic BP, mmHg > 1 = 101-110 Pulse, beats per minute > 2 = 111-130 Consciousness > 0 = Alert 78 y/o female presenting for multiple vague complaints. Afebrile rectally. Vitals remarkable for tachycardia without hypotension. Noted to be similarly tachycardic during last presentation. Physical exam as described above. Suspect complaints are likely progression of pts Dementia and Parkinson's. Decubitus ulcer is unremarkable for signs of acute infection. Will cover with clean and dry bandage. CBC revealed leukocytosis without significant left shift, and mild anemia at baseline previously documented. CMP revealed transaminitis, suspected to be acute as levels were within normal limits during pts last evaluation on 25 October 2018. No significant electrolyte derangement. Will obtain RUQ U/S to evaluate for biliary pathology. Hypocalcemia corrected for hypoalbuminemia is within normal limits. UA revealed 4+ urobilinogen, also suspected to be acute. UA did not reveal pyuria, nitrites, or leukocyte esterase. Low suspicion for acute cystitis. CXR unremarkable for acute cardiopulmonary findings. Pt signed out to resident Dr. Stuart after she was verbally appraised of the pt s HPI, current ED course, and plan of management. Will f/u on pending RUQ U/S and subtherapeutic valproic acid level. Alonso Ontiveros M.D., PGY1 Emergency Medicine Resident Past History - Past Medical History Allergies/Adverse Reactions: Allergies Allergy/AdvReac Type Severity Reaction Status Date / Time strawberry Allergy Mild Hives Verified 11/16/18 16:35 tomato Allergy Mild Hives Verified 11/16/18 16:35 divalproex sodium Allergy Verified 11/16/18 16:35 [From Depakote] lisinopril Allergy Verified 11/16/18 16:35 No Known Drug Allergies Allergy Verified 11/16/18 16:35 quetiapine [From Seroquel] Allergy Verified 11/16/18 16:35 Home Medications: Ambulatory Orders Aspirin [ASA -] 81 mg GT DAILY 04/17/17 Atorvastatin Ca [Lipitor] 40 mg GT HS 04/17/17 Levothyroxine [Synthroid -] 50 mcg GT ASDIR 04/17/17 Memantine HCl [Namenda Xr] 28 mg GT DAILY 04/17/17 Polyethylene Glycol 3350 [Miralax 119 gm Btl -] 17 g GT PRN PRN 06/17/18 Polyvinyl Alcohol [Artificial Tears] 1 drop OU TID #1 drops 07/28/18 Amlodipine Besylate [Norvasc -] 10 mg GT DAILY 11/16/18 Cardiac Disorders: Yes (bradycardia) COPD: No Dementia: Yes (ALZHEIMERS.) Disorders: (UTI) HTN: Yes Hypercholesterolemia: Yes Thyroid Disease: Yes (hypothyroid) - Suicide/Smoking/Psychosocial Hx Smoking History: Never smoked Have you smoked in the past 12 months: No Information on smoking cessation initiated: No Hx Alcohol Use: No Drug/Substance Use Hx: No Substance Use Type: None Hx Substance Use Treatment: No *Physical Exam - Vital Signs Last Vital Signs Temp Pulse Resp BP Pulse Ox 99.9 F H 115 H 20 110/78 100 11/16/18 15:03 11/16/18 15:03 11/16/18 15:03 11/16/18 15:03 11/16/18 15:03 ED Treatment Course - LABORATORY CBC & Chemistry Diagram: 11/16/18 16:12 11/16/18 16:12 - RADIOLOGY Radiology Studies Ordered: Category Date Time Status CHEST X-RAY PORTABLE* [RAD] Stat Radiology 11/16/18 16:07 Ordered *DC/Admit/Observation/Transfer Diagnosis at time of Disposition: Transaminitis - Discharge Dispostion Condition at time of disposition: Stable - Referrals Referrals: Talon Gonsalez MD [Primary Care Provider] - - Patient Instructions - Post Discharge Activity
[2018-11-16 16:48] LABS: BASO % 0.5 % (0-2.0); EOS % 0.1 % (0-4.5); HEMATOCRIT 31.3 % (32.4-45.2); LYMPH % 4.2 % (8-40); MCH 27.9 pg (25.7-33.7); MCHC 31.9 g/dl (32.0-36.0); MEAN CELL VOLUME 87.3 fl (80-96); MEAN PLT VOLUME 9.9 fl (7.5-11.1); NEUT % 85.2 % (42.8-82.8); PLATELET COUNT 329 K/MM3 (134-434); RBC 3.58 M/mm3 (3.60-5.2); RDW 18.5 % (11.6-15.6); WHITE BLOOD COUNT 17.1 K/mm3 (4.0-10.0)
[2018-11-16 17:28] LABS: ALBUMIN 1.7 g/dl (3.4-5.0); ALK PHOS 193 U/L (45-117); ANION GAP 8 MMOL/L (8-16); BILIRUBIN,TOTAL 0.7 mg/dL (0.2-1); BLOOD UREA NITROGEN 25.1 mg/dL (7-18); CALCIUM 8.4 mg/dL (8.5-10.1); CHLORIDE 99 mmol/L (98-107); CO2 29 mmol/L (21-32); CREATININE 0.8 mg/dL (0.55-1.3); GLUCOSE,RANDOM 120 mg/dL (74-106); MAGNESIUM 2.7 mg/dL (1.8-2.4); POTASSIUM 4.8 mmol/L (3.5-5.1); SGOT/AST 283 U/L (15-37); SGPT/ALT 206 U/L (13-61); SODIUM 136 mmol/L (136-145); TOT PROT 7.4 g/dl (6.4-8.2)
[2018-11-16 18:00] LABS: ANISOCYTOSIS 1+; MACROCYTOSIS 1+
[2018-11-16 18:02] LABS: PLATELET ESTIMATE ADEQUATE
[2018-11-16] MEDS ORDERED: SODIUM CHLORIDE 0.9% 500 ML INFUS.BAG IV ONE (18:46)
--- NOTE | 2018-11-16 19:13 | PDOC ---
*Physical Exam - Vital Signs Last Vital Signs Temp Pulse Resp BP Pulse Ox 99.9 F H 108 H 18 128/89 100 11/16/18 15:03 11/16/18 18:48 11/16/18 18:48 11/16/18 18:48 11/16/18 18:48 - Physical Exam Comments: 11/16/18 19:06 78YOF with h/o Parkinson's and Alzheimer's (nonverbal baseline), HTN, HLD, hypothyroidism, seizure disorder (possibly on VPA but subtherapeutic), decubitus ulcer, and PEG tube use, who p/w worsened chronic arm tremors, had about a 3 minute episode in which her head fell back and she may or may not have been unconscious. Presented tachycardic to mid-110s, WBC 17k's increased from baseline, elevated LFTs. Pending read from [facility]. ED Treatment Course - LABORATORY CBC & Chemistry Diagram: 11/16/18 16:12 11/16/18 16:12 - ADDITIONAL ORDERS Additional order review: Laboratory Results 11/16/18 11/16/18 11/16/18 16:12 16:12 15:53 Sodium 136 Potassium 4.8 Chloride 99 Carbon Dioxide 29 Anion Gap 8 BUN 25.1 H Creatinine 0.8 Est GFR (CKD-EPI)AfAm 82.42 Est GFR (CKD-EPI)NonAf 71.11 Random Glucose 120 H Calcium 8.4 L Phosphorus 4.0 Magnesium 2.7 H Total Bilirubin 0.7 AST 283 H ALT 206 H Alkaline Phosphatase 193 H Troponin I < 0.02 Total Protein 7.4 Albumin 1.7 L TSH 5.14 H Urine Color Dk yellow Urine Appearance Cloudy Urine pH 6.0 Ur Specific [place] 1.018 Urine Protein 1+ H Urine Glucose (UA) Negative Urine Ketones Negative Urine Blood Negative Urine Nitrite Negative Urine Bilirubin Negative Urine Urobilinogen 4.0 e.u/dl H Ur Leukocyte Esterase Trace Urine WBC (Auto) 5 Urine RBC (Auto) 7 Urine Casts (Auto) 4 U Epithel Cells (Auto) 6.8 Urine Bacteria (Auto) 1696.8 Valproic Acid 41.1 L 11/16/18 16:12 RBC 3.58 L MCV 87.3 MCHC 31.9 L RDW 18.5 H MPV 9.9 Neutrophils % 85.2 H Lymphocytes % 4.2 L D Monocytes % 10.0 Eosinophils % 0.1 Basophils % 0.5 - Medications Given in the ED: ED Medications Discontinued Medications Generic Name Dose Route Start Last Admin Trade Name Rema PRN Reason Stop Dose Admin Sodium Chloride 500 ml 11/16/18 18:46 11/16/18 19:00 Normal Saline - IV 11/16/18 18:47 500 ml ONCE ONE Administration Medical Decision Making - Medical Decision Making 11/16/18 19:28 Reviewed all patient visit data and compared with prior. Vital Signs 11/16/18 11/16/18 15:03 18:48 Temperature 99.9 F H Pulse Rate 115 H Pulse Rate [ 108 H Right Radial] Respiratory 20 18 Rate Blood Pressure 110/78 Blood Pressure 128/89 [Left Arm] O2 Sat by Pulse 100 100 Oximetry (%) Laboratory Tests 11/16/18 11/16/18 11/16/18 15:53 16:12 16:12 WBC 17.1 H RBC 3.58 L Hgb 10.0 L Hct 31.3 L MCV 87.3 MCH 27.9 MCHC 31.9 L RDW 18.5 H Plt Count 329 MPV 9.9 Absolute Neuts (auto) 14.6 H Total Counted 100 Neutrophils % 85.2 H Neutrophils % (Manual) 83.0 H Band Neutrophils % 1.0 Lymphocytes % 4.2 L D Lymphocytes % (Manual) 7.0 L Monocytes % 10.0 Monocytes % (Manual) 10 Eosinophils % 0.1 Basophils % 0.5 Nucleated RBC % 0 Differential Comment Man diff performed Platelet Estimate Adequate Platelet Comment Polychromasia 1+ Anisocytosis 1+ Macrocytosis 1+ Sodium 136 Potassium 4.8 Chloride 99 Carbon Dioxide 29 Anion Gap 8 BUN 25.1 H Creatinine 0.8 Est GFR (CKD-EPI)AfAm 82.42 Est GFR (CKD-EPI)NonAf 71.11 Random Glucose 120 H Calcium 8.4 L Phosphorus 4.0 Magnesium 2.7 H Total Bilirubin 0.7 AST 283 H ALT 206 H Alkaline Phosphatase 193 H Troponin I < 0.02 Total Protein 7.4 Albumin 1.7 L TSH 5.14 H Urine Color Dk yellow Urine Appearance Cloudy Urine pH 6.0 Ur Specific [place] 1.018 Urine Protein 1+ H Urine Glucose (UA) Negative Urine Ketones Negative Urine Blood Negative Urine Nitrite Negative Urine Bilirubin Negative Urine Urobilinogen 4.0 e.u/dl H Ur Leukocyte Esterase Trace Urine WBC (Auto) 5 Urine RBC (Auto) 7 Urine Casts (Auto) 4 U Epithel Cells (Auto) 6.8 Urine Bacteria (Auto) 1696.8 Valproic Acid 11/16/18 16:12 WBC RBC Hgb Hct MCV MCH MCHC RDW Plt Count MPV Absolute Neuts (auto) Total Counted Neutrophils % Neutrophils % (Manual) Band Neutrophils % Lymphocytes % Lymphocytes % (Manual) Monocytes % Monocytes % (Manual) Eosinophils % Basophils % Nucleated RBC % Differential Comment Platelet Estimate Platelet Comment Polychromasia Anisocytosis Macrocytosis Sodium Potassium Chloride Carbon Dioxide Anion Gap BUN Creatinine Est GFR (CKD-EPI)AfAm Est GFR (CKD-EPI)NonAf Random Glucose Calcium Phosphorus Magnesium Total Bilirubin AST ALT Alkaline Phosphatase Troponin I Total Protein Albumin TSH Urine Color Urine Appearance Urine pH Ur Specific [place] Urine Protein Urine Glucose (UA) Urine Ketones Urine Blood Urine Nitrite Urine Bilirubin Urine Urobilinogen Ur Leukocyte Esterase Urine WBC (Auto) Urine RBC (Auto) Urine Casts (Auto) U Epithel Cells (Auto) Urine Bacteria (Auto) Valproic Acid 41.1 L CXR: Nothing acute. RUQ US: Nothing acute. 11/16/18 19:30 The patient has new baseline LFT elevation and leukocytosis. Given her older age and significant comorbidities she requires admission for further w/u and observation. Dr. Gonsalez is given courtesy call at this time. 11/16/18 19:58 Patient's daughter is reachable at [phone], Janae Ng (HCP and POA). She wishes to express concern for patient's progressive condition regarding: PEG tube feeds - she is bringing the patient's feeds tonight. Her brittle bones - she is concerned about the position of the patient's legs at rest. Her decubitus ulcer - she is concerned about long-term topicals and other tx for this. Her bed situation - she wants the air mattress-type hospital bed that massages up/down the entire body. Her UTI - she is concerned what may be causing these recurrent UTI and what she could do differently at home. Her oral thrush - she requests Diflucan and wants to know what she could be doing differently. Her chronic difficulty swallowing - she wants to make sure the patient stays with HOB elevated so she doesn't aspirate. At this time [facility] is microblogged for the patient's admission and blank Decision to Admit order is placed. 11/16/18 21:[address] with [address] Romano with Inpatient Medicine; patient going to Dr. Bates. *DC/Admit/Observation/Transfer Diagnosis at time of Disposition: Transaminitis, LFT elevation, Hypoalbuminemia Leukocytosis Qualifiers: Leukocytosis type: unspecified Qualified Code(s): D72.829 - Elevated white blood cell count, unspecified UTI (urinary tract infection) Qualifiers: Urinary tract infection type: acute cystitis Hematuria presence: without hematuria Qualified Code(s): N30.00 - Acute cystitis without hematuria - Discharge Dispostion Condition at time of disposition: Guarded Decision to Admit order: Yes - Referrals Referrals: Talon Gonsalez MD [Primary Care Provider] - - Patient Instructions - Post Discharge Activity
[2018-11-16] MEDS ORDERED: CEFTRIAXONE 1,000 MG in DEXTROSE 5%-WATER - 50 ML IVPB ONE (19:44)
[2018-11-16] MEDS ORDERED: FLUCONAZOLE 50 MG TABLET PO ONE (19:44)
[2018-11-16] MEDS ORDERED: CEFTRIAXONE 1 GM/50 ML BAG ONE (19:54)
[2018-11-16] MEDS ORDERED: FLUCONAZOLE 100 MG TABLET (UD) ONE (19:54)
[2018-11-16] MEDS ORDERED: VALPROIC ACID 250 MG CAPSULE PO ONE (20:08)
--- NOTE | 2018-11-16 20:09 | PN ---
Teaching Attending Note Name of Resident: Maricruz Romano ATTENDING PHYSICIAN STATEMENT I saw and evaluated the patient. I reviewed the resident's note and discussed the case with the resident. I agree with the resident's findings and plan as documented. SUBJECTIVE: Patient is a 78 year old woman with a PMH of Alzheimer's dementia, Parkinson's disease, PEG tube use, Sacral decubitus ulcer, HTN, HLD, Hypothyroid, Seizures, Nonverbal and Bedbound at baseline who presents to the ER with daughter for evaluation of tremors. The patient's daughter states she witnessed the patient have abnormal arm movements for a few minutes. She has worsened chronic arm tremors, had about a 3 minute episode in which her head fell back and she may or may not have been unconscious. Also patient has stopped swallowing in the past three weeks and is now occasionally make a rasping noise, that seems to be positionally dependent. Patient is now solely fed via PEG tube. Daughter manages feeding and medication administration. Patient has a non healing sacral decubitus ulcer. OBJECTIVE: Alert Vital Signs Period Temp Pulse Resp BP Sys/Torres Pulse Ox Last 24 Hr 99.9 F 108-115 18-20 110-128/78-89 100-100 HEENT: No Jaundice, eye redness or discharge, PERRLA, EOMI. Dry mucous membranes. Normocephalic, atraumatic. External ears are normal and hearing is grossly intact. No nasal discharge. Neck: Supple, nontender. No palpable adenopathy or thyromegaly. No JVD Chest: Good effort. Clear to auscultation and percussion. Heart: Regular. No S3, rub or murmur Abdomen: Not distended, soft, nontender and no HSM. No rebound or guarding. LUQ PEG. Normal bowel sounds. Ext: Peripheral pulses intact. RLE edema and tenderness. Skin: Warm and dry. No petechiae, rash or ecchymosis. Stage 3 sacral decubitus ulcer. Neuro: Alert. Grimaces and withdraws to stimuli. Stiff limbs with rigidity. DTR are symmetric. Psych: Appropriate mood and affect. Home Medications Medication Instructions Recorded Aspirin [ASA -] 81 mg GT DAILY 04/17/17 Atorvastatin Ca [Lipitor] 40 mg GT HS 04/17/17 Levothyroxine [Synthroid -] 50 mcg GT ASDIR 04/17/17 Memantine HCl [Namenda Xr] 28 mg GT DAILY 04/17/17 Polyethylene Glycol 3350 [Miralax 17 g GT PRN PRN 06/17/18 119 gm Btl -] Polyvinyl Alcohol [Artificial 1 drop OU TID #1 drops 07/28/18 Tears] Amlodipine Besylate [Norvasc -] 10 mg GT DAILY 11/16/18 Abnormal Lab Results 11/16/18 11/16/18 11/16/18 15:53 16:12 16:12 WBC 17.1 H RBC 3.58 L Hgb 10.0 L Hct 31.3 L MCHC 31.9 L RDW 18.5 H Absolute Neuts (auto) 14.6 H Neutrophils % 85.2 H Neutrophils % (Manual) 83.0 H Lymphocytes % 4.2 L D Lymphocytes % (Manual) 7.0 L BUN 25.1 H Random Glucose 120 H Calcium 8.4 L Magnesium 2.7 H AST 283 H ALT 206 H Alkaline Phosphatase 193 H Albumin 1.7 L TSH 5.14 H Urine Protein 1+ H Urine Urobilinogen 4.0 e.u/dl H Valproic Acid 11/16/18 16:12 WBC RBC Hgb Hct MCHC RDW Absolute Neuts (auto) Neutrophils % Neutrophils % (Manual) Lymphocytes % Lymphocytes % (Manual) BUN Random Glucose Calcium Magnesium AST ALT Alkaline Phosphatase Albumin TSH Urine Protein Urine Urobilinogen Valproic Acid 41.1 L ASSESSMENT AND PLAN: 1. Febrile Illness/Leukocytosis - No obvious source of infection. Elevated LFTs is concerning for hepatobiliary infection, but preliminary report of RUQ sonogram is unrevealing. No acute abnormality on CXR and sacral decubitus ulcer does not appear to be grossly infected. EKG shows sinus tachycardia with LVH but no significant ST-T wave changes and lactic acid level is pending. Will get RLE doppler to rule out DVT, continue daily wound care and consult Wound care service. Wound culture and sepsis workup done and patient started on IV NS, IV Vancomycin and Zosyn. Consult ID. The arm movements described by her daughter may be a component of her Parkinson' s or a seizure. Will load her with Valproic acid since her level was subtherapeutic. Consult neurology. Continue comprehensive care of her comorbid conditions including frequent repositioning and aspiration precautions. Resume PEG feeding and ensure adequate caloric support. 2. Severe hypoalbuminemia - Possibly due to combined effects of proteinuria, malnutrition and inflammation associated with comorbid chronic conditions. Will ensure adequate dietary protein intake and also consult blocker and polisher. 3. Anemia - Likely multifactorial. Do basic anemia work up including serial stool guaiacs, reticulocyte count and iron studies. 5. Hypertension - Restart suitable outpatient antihypertensive drugs when clinically appropriate. Revise regimen to ensure good BP control. Nonpharmacologic measures to control hypertension like weight loss, salt restriction and exercise discussed. 6. DVT prophylaxis - Lovenox 40 mg SQ q 24 hours. 7. Advance directives - Full code
--- NOTE | 2018-11-16 20:20 | HP ---
Admitting History and Physical - Admission Chief Complaint: New b/l UE tremors x 1day History of Present Illness: Pt is a 78 y/o F with PMHx of Psrkinson's, Alzheimer's, HTN, HLD, hypothyroidism , seizure disorder, decubitus ulcer, s/p PEG tube placement, chronic arm tremors , brought from home by daughter, (pts primary career technical counselor) for new b/l UE tremors, persistent (up to 10-15 continous) over 2-3 mins. Pt's daughter had sat her down in the wheel chair to do her hair when she noted the Pt extended her neck back and stared into the evangelist persistently for 1 min. Pt is reported to have absence /silent seizures per daughter for which she has been on valproic acid 250mg (liquid) via PEG tube rather than depakote which she had used PO prior to the PEG tube. Per the daughter, patient has had worsening stiffness of the body from worsening Parkison's and has finally stopped swallowing now (all nutrition Jevity via PEG). Pt 's daughter is concerned for increased gurgling of secretions for the past 1 month since tthe patient stopped actively swallowing. Over the past 6 weeks. pt has also developed a decubitus ulcer int eh sacrum that the pt's daughter keeps clean. Per daughter, she was requesting bacitracin topical for the ulcer. No new fever, the daughter reports's compliance on the medications. Per daughter she has also noted increased somnolence of patient ove the past 2 weeks which she said is usually seen when pt has a UTI Per daughter, pt is not allergic to depakote- it is an error in the computer In ED- UA - showed Protein 1+, LE-trace, WBC-5, Urine bacteria-1696, epith-6.8, RBC-7, Casts-4 Pt received NS, ceftriaxone, ABD US-Mildly coarsened hepatic echotexture, normal directional flow within main portal vein. Liver measures-14.0. No obvious gall stones. Gall bladder is nl thickness. Pancreatic duct is at upper limit of nl-3mm. 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, Parkinson's Cardiovascular: Yes: HTN - Past Surgical History Past Surgical History: Yes: None - Smoking History Smoking history: Never smoked Have you smoked in the past 12 months: No - Alcohol/Substance Use Hx Alcohol Use: No History of Substance Use: reports: None - Social History ADL: Family Assistance History of Recent Travel: No Home Medications - Allergies Allergies/Adverse Reactions: Allergies Allergy/AdvReac Type Severity Reaction Status Date / Time strawberry Allergy Mild Hives Verified 11/16/18 16:35 tomato Allergy Mild Hives Verified 11/16/18 16:35 divalproex sodium Allergy Verified 11/16/18 16:35 [From Depakote] lisinopril Allergy Verified 11/16/18 16:35 No Known Drug Allergies Allergy Verified 11/16/18 16:35 quetiapine [From Seroquel] Allergy Verified 11/16/18 16:35 - Home Medications Home Medications: Ambulatory Orders Aspirin [ASA -] 81 mg GT DAILY 04/17/17 Atorvastatin Ca [Lipitor] 40 mg GT HS 04/17/17 Levothyroxine [Synthroid -] 50 mcg GT ASDIR 04/17/17 Memantine HCl [Namenda Xr] 28 mg GT DAILY 04/17/17 Polyethylene Glycol 3350 [Miralax 119 gm Btl -] 17 g GT PRN PRN 06/17/18 Polyvinyl Alcohol [Artificial Tears] 1 drop OU TID #1 drops 07/28/18 Amlodipine Besylate [Norvasc -] 10 mg GT DAILY 11/16/18 Family Disease History - Family Disease History Family Disease History: Other: Daughter (HTN) Review of Systems - Review of Systems Constitutional: denies: Chills, Fever HENT: reports: Difficult Swallowing Cardiovascular: denies: Shortness of Breath Respiratory: denies: Cough Gastrointestinal: reports: Other (PEG tube) Musculoskeletal: reports: Other (RLE swelling) Neurological: reports: Tremors (new b/l tremors) Physical Examination Vital Signs: Vital Signs Temperature 99.9 F H 11/16/18 15:03 Pulse Rate 108 H 11/16/18 18:48 Respiratory Rate 18 11/16/18 18:48 Blood Pressure 128/89 11/16/18 18:48 O2 Sat by Pulse Oximetry (%) 100 11/16/18 18:48 Constitutional: Yes: No Distress, Calm Eyes: Yes: Conjunctiva Clear, EOM Intact, PERRL. No: Sclera Icterus HENT: Yes: Atraumatic, Other (dry mucous membrane). No: Drooling, Pharyngeal Erythema Cardiovascular: Yes: S1, S2 Respiratory: Yes: CTA Bilaterally Gastrointestinal: Yes: Normal Bowel Sounds, Other (PEG tube in place LUQ- clean, dry, no erythema) Integumentary: Yes: Pressure Ulcer (Saccral decubitus stage 3-2x2cm, non purulent, clean, dry) Wound/Incision: Yes: Dressing Removed Neurological: Yes: Aphasia (Non verbal), Other (hypertonic globally). No: Facial Droop, Lethargy, Pre-Existing Deficit, Seizure, Tremors Psychiatric: No: Oriented Labs: CBC, BMP 11/16/18 16:12 11/16/18 16:12 Imaging - Results Chest X-ray: Image Reviewed Assessment/Plan Ambulatory Orders Aspirin [ASA -] 81 mg GT DAILY 04/17/17 Atorvastatin Ca [Lipitor] 40 mg GT HS 04/17/17 Levothyroxine [Synthroid -] 50 mcg GT ASDIR 04/17/17 Memantine HCl [Namenda Xr] 28 mg GT DAILY 04/17/17 Polyethylene Glycol 3350 [Miralax 119 gm Btl -] 17 g GT PRN PRN 06/17/18 Polyvinyl Alcohol [Artificial Tears] 1 drop OU TID #1 drops 07/28/18 Amlodipine Besylate [Norvasc -] 10 mg GT DAILY 11/16/18 Assessment/Plan: Pt is a 78 y/o F with PMHx of Parkinson's, Alzheimer's, HTN, HLD, hypothyroidism , seizure disorder, decubitus ulcer, s/p PEG tube placement, chronic arm tremors , brought from home by daughter, (pts primary career technical counselor) for new b/l UE tremors, persistent (up to 10-15 continous) over 2-3 mins. #new b/l UE tremors Could be in setting of breakthrough seizures R/O worsening tremors Valproic acid subtherapeutic in ED Received 250mg Valproic acid in ED., added 500mg Per daughter, pt is not allergic to depakoate, please verify in am, will hold off until confirmed Dr Keene- on board #AMS Per daughter, gradually increasing somnolence over past 2 weeks Could be in setting of worsening parkinson's/Alzheimers- cont mematine Neuro on board #Parkinson's/Alzheimer's Cont mementine #Leukocytosis with sinus tachy No clear focus of infection at this time Pending duplex US -b/l- Rleg swelling Transaminases- though prelim US report negative for biliary path, pancreas upper limit of nl Pending lipase UA- not clear picture of UTI, received ceftriaxone in ED Will expand coverage to zosyn- pending definitive US report in am Pt with decubitus ulcer wound cx pending Will add vanco as pt has recently been in hospital per daughter received AB till 2 weeks ago Consider ID consult #Transaminases though prelim US report negative for biliary path, pancreas upper limit of nl Valproic acid could cause increase in transaminases, but it appears acute Could be in setting of shock liver with dehydration and elevated LA, no clear focus of infection at this time Pending lipase UA- not clear picture of UTI, received ceftriaxone in ED Pending CK Will expand coverage to zosyn- pending definitive US report in am Hold lipitor #decubitus ulcer wound cx pending Will add vanco as pt has recently been in hospital per daughter received AB till 2 weeks ago Consider wound team for mx #HTN Cont amlodipine 10mg #HLD Hold statins in setting of elevated transaminases #hypothyroidism TSH elevated In setting of acute possible infectious process May need repeat TSH #seizure disorder Pt initially reported to be on "d" medication per daughter Changed to "v" medication when she started PEG tube No seizure meds on file #s/p PEG tube placement Pending Lipase NPO #chronic arm tremors Likely related to Parkinsons Cont to monitor #Anemia MCV-87.3 Stool occult #Hypoalbuminemia BMI within normal, but proteinuric #RLE edema Duplex US- shows rice's cyst #FEN Received NS-500mls in ED BUN/Cr->20 Fecal occult NPO Lovenox-sq Med surg Visit type - Emergency Visit Emergency Visit: Yes ED Registration Date: 11/16/18 Care time: The patient presented to the Emergency Department on the above date and was hospitalized for further evaluation of their emergent condition. - New Patient This patient is new to me today: Yes Date on this admission: 11/16/18 - Critical Care Critical Care patient: No
--- NOTE | 2018-11-16 20:22 | PDOC ---
Documentation entered by Zainab Richard SCRIBE, acting as scribe for Yoanna Hanley MD. Yoanna Hanley MD: This documentation has been prepared by the Hilary quijano Sammi, SCRIBE, under my direction and personally reviewed by me in its entirety. I confirm that the documentation accurately reflects all work, treatment, procedures, and medical decision making performed by me. Attending Attestation - Resident Resident Name: OntiverosAlonso - ED Attending Attestation I have performed the following: I have examined & evaluated the patient, The case was reviewed & discussed with the resident, I agree w/resident's findings & plan, Exceptions are as noted - HPI HPI: 11/16/18 17:19 The patient i a 78 year old female, with a significant PMH of alzheimer's, Parkinson's, HTN, HLD, hypothyroid, seizures, nonverbal at baseline, who presents to the emergency department with daughter for evaluation of tremors. The patient's daughter states she witnessed the patient have abnormal arm movements for a few minutes. She also notes the patient had an episode of banging her head. In addition, the daughter has concern of a "rasping" noise the patient is making as well as a decubitus ulcer. Allergies: divalproex, lisinopril PCP: Wallace - Physicial Exam PE: 11/16/18 19:55 78 yo female in advanced stage of Parkinson's ds presents nonverbal and non ambulatory head ncat, no hematomas,no lacerations neck no jvd lungs no wheezing,no crackles appreciated extremities rhythmic mvmts cvs tachycardia abd soft skin warm and dry neuro nonambulatory,nonverbal,bruxism - Medical Decision Making 11/16/18 17:46 pt has rectal temp=99.6 and the daughter feels she is not at her baseline.She is totally nonverbal PMH Parkinson's ds(advanced) 11/16/18 18:23 11/16/18 19:15 Review of labs : she has a leukocytosis of 17,000 . Chemistries show elevated transaminases in the 200s August of the abdominal ultrasound showed a mildly coarsened hepatic stricture. There is normal. Directional flow within the main portal vein. It measures measures 14 cm in length. There is no obvious gallstones. The gallbladder bhardwaj normal thickness. The common bile duct diameter is within normal limits. Pancreatic duct is at upper limits of normal measuring 3 mm 11/16/18 20:04 UA reveals ++UTI 11/16/18 20:20 Will admit med/surg for IV antibiotics and further eval of elevated lfts
[2018-11-16] MEDS ORDERED: DIVALPROEX SODIUM 250 MG TABLET E.C. PO ONE (20:35)
[2018-11-16] MEDS ORDERED: DIVALPROEX SODIUM 500 MG TABLET E.C. ONE (21:27)
[2018-11-16] MEDS ORDERED: VALPROATE SODIUM 500 MG/5 ML VIAL IVPB ONE (21:45)
[2018-11-16] MEDS ORDERED: VALPROATE SODIUM 500 MG/5 ML VIAL ONE (22:13)
[2018-11-16] MEDS ORDERED: VANCOMYCIN 1,000 MG in DEXTROSE 5%-WATER - 250 ML IVPB SCH (23:15)
[2018-11-16] MEDS ORDERED: PIPERACILLIN/TAZOB 3.375 GM 3.375 GM/50 ML BAG IVPB ONE (23:33)
[2018-11-16] MEDS ORDERED: VANCOMYCIN 1 GRAM (PRE-DOCKED) 1,000 MG/250 ML BAG IVPB ONE ×2 (23:33→23:45)
[2018-11-16] MEDS: PIPERACILLIN/TAZOB 3.375 GM 3.375 GM in DEXTROSE 5%-WATER - 50 ML IVPB SCH (23:50)
[2018-11-17] MEDS ORDERED: SODIUM CHLORIDE 250 ML IV STA (02:14)
[2018-11-17] MEDS ORDERED: SODIUM CHLORIDE 1,000 ML IV SCH (02:15)
[2018-11-17] MEDS: ARTIFICIAL TEARS (POLYVINYL ALCOHOL) OPTH DROPS OU SCH ×3 (06:37→23:31)
[2018-11-17] MEDS ORDERED: PIPERACILLIN/TAZOBACTAM 3.375 GM VIAL IVPB ONE ×2 (06:38→14:46)
[2018-11-17] MEDS ORDERED: DEXTROSE 5%-WATER - 50 ML IVPB ONE ×2 (06:38→14:46)
[2018-11-17] MEDS: LEVOTHYROXINE NA 50 MCG TABLET (FP) GT SCH (06:41)
[2018-11-17] MEDS: PIPERACILLIN/TAZOB 3.375 GM 3.375 GM in DEXTROSE 5%-WATER - 50 ML IVPB SCH ×2 (06:45→15:06)
[2018-11-17 08:03] LABS: BASO % 0.2 % (0-2.0); EOS % 0.1 % (0-4.5); HEMATOCRIT 27.9 % (32.4-45.2); LYMPH % 3.9 % (8-40); MCH 27.7 pg (25.7-33.7); MCHC 32.2 g/dl (32.0-36.0); MEAN CELL VOLUME 85.9 fl (80-96); MONO % 9.1 % (3.8-10.2); NEUT % 86.7 % (42.8-82.8); PLATELET COUNT 319 K/MM3 (134-434); RBC 3.25 M/mm3 (3.60-5.2); RDW 17.9 % (11.6-15.6); WHITE BLOOD COUNT 15.3 K/mm3 (4.0-10.0)
[2018-11-17 08:20] LABS: INR 1.23 (0.83-1.09); PROTHROMBIN TIME (PATIENT) 14.6 SEC (9.7-13.0)
[2018-11-17 08:48] LABS: ALBUMIN 1.4 g/dl (3.4-5.0); ALK PHOS 152 U/L (45-117); ANION GAP 9 MMOL/L (8-16); BILIRUBIN,TOTAL 0.4 mg/dL (0.2-1); BLOOD UREA NITROGEN 24.2 mg/dL (7-18); CALCIUM 7.9 mg/dL (8.5-10.1); CHLORIDE 102 mmol/L (98-107); CO2 28 mmol/L (21-32); CREATININE 0.5 mg/dL (0.55-1.3); GLUCOSE,RANDOM 91 mg/dL (74-106); MAGNESIUM 2.5 mg/dL (1.8-2.4); PHOSPHOROUS 4.5 mg/dL (2.5-4.9); SGOT/AST 156 U/L (15-37); SGPT/ALT 139 U/L (13-61); SODIUM 138 mmol/L (136-145); TOT PROT 6.4 g/dl (6.4-8.2)
--- NOTE | 2018-11-17 08:59 | CONSULT ---
- Consultation REQUESTING PROVIDER: CONSULT REQUEST: We have been asked to surgically evaluate this patient for ( sacral decub). PCP:Hilton Pate HISTORY OF PRESENT ILLNESS: 78 y/o F from home w/ PMHx Parkinson's, Alzheimer's , HTN, HLD, hypothyroidism, seizure disorder, failure to thrive s/p PEG tube placement, chronic arm tremors, brought in by daughter, (pts primary career orientation teacher ) for new b/l UE tremors. Vascular consulted for sacral ulcer. Per RN pts daughter reported that pt developed a decubitus ulcer over the past month. Daughter has been washing it and applying bacitracin over the ulcer. No prior history of ulcers, no other ulcers. PMHx: as above PSHx: unknown Home Medications Medication Instructions Recorded Aspirin [ASA -] 81 mg GT DAILY 04/17/17 Atorvastatin Ca [Lipitor] 40 mg GT HS 04/17/17 Levothyroxine [Synthroid -] 50 mcg GT ASDIR 04/17/17 Memantine HCl [Namenda Xr] 28 mg GT DAILY 04/17/17 Polyethylene Glycol 3350 [Miralax 17 g GT PRN PRN 06/17/18 119 gm Btl -] Polyvinyl Alcohol [Artificial 1 drop OU TID #1 drops 07/28/18 Tears] Amlodipine Besylate [Norvasc -] 10 mg GT DAILY 11/16/18 Allergies Allergy/AdvReac Type Severity Reaction Status Date / Time strawberry Allergy Mild Hives Verified 11/16/18 16:35 tomato Allergy Mild Hives Verified 11/16/18 16:35 divalproex sodium Allergy Verified 11/16/18 16:35 [From Depakote] lisinopril Allergy Verified 11/16/18 16:35 No Known Drug Allergies Allergy Verified 11/16/18 16:35 quetiapine [From Seroquel] Allergy Verified 11/16/18 16:35 REVIEW OF SYSTEMS: unable to obtain as pt is nonverbal PHYSICAL EXAM: GENERAL: Awake, alert, and fully oriented, in no acute distress. HEAD: Normal with no signs of trauma. LUNGS: unlabored on RA. ABDOMEN: Peg tube in place, gauze in place and clean, surrounding tissue c/d/i. Sacrum: approx 2x1.5cm sacral ulcer, stage 2. Wound bed clean with granulation tissue, no erythema no drainage. Vital Signs Temperature 98.7 F 11/17/18 04:43 Pulse Rate 113 H 11/17/18 04:43 Respiratory Rate 18 11/17/18 02:58 Blood Pressure 123/94 11/17/18 04:43 O2 Sat by Pulse Oximetry (%) 98 11/17/18 04:43 Lab Results WBC 15.3 K/mm3 (4.0-10.0) H 11/17/18 07:33 RBC 3.25 M/mm3 (3.60-5.2) L 11/17/18 07:33 Hgb 9.0 GM/dL (10.7-15.3) L 11/17/18 07:33 Hct 27.9 % (32.4-45.2) L 11/17/18 07:33 MCV 85.9 fl (80-96) 11/17/18 07:33 MCHC 32.2 g/dl (32.0-36.0) 11/17/18 07:33 RDW 17.9 % (11.6-15.6) H 11/17/18 07:33 Plt Count 319 K/MM3 (134-434) 11/17/18 07:33 Sodium 136 mmol/L (136-145) 11/16/18 16:12 Potassium 4.8 mmol/L (3.5-5.1) 11/16/18 16:12 Chloride 99 mmol/L (98-107) 11/16/18 16:12 Carbon Dioxide 29 mmol/L (21-32) 11/16/18 16:12 Anion Gap 8 MMOL/L (8-16) 11/16/18 16:12 BUN 25.1 mg/dL (7-18) H 11/16/18 16:12 Creatinine 0.8 mg/dL (0.55-1.3) 11/16/18 16:12 Random Glucose 120 mg/dL (74-106) H 11/16/18 16:12 Calcium 8.4 mg/dL (8.5-10.1) L 11/16/18 16:12 Blood Type O POSITIVE 11/16/18 23:10 Antibody Screen Negative 11/16/18 23:10 INR 1.23 (0.83-1.09) H 11/17/18 07:33 A/P: 78 y/o F from home w/ PMHx Parkinson's, Alzheimer's, HTN, HLD, hypothyroidism, seizure disorder, failure to thrive s/p PEG tube placement, chronic arm tremors, brought in by daughter, (pts primary career orientation teacher) for new b /l UE tremors. Vascular consulted for sacral ulcer. Small sacral ulcer without clinical signs of infection. -Reposition every two hours while in bed -Air mattress recommended -Use drawsheets and Trendelenburg when repositioning to reduce friction and shear -Manageincontinence via timely cleansing, use of appropriate incontinence disposables and use of barrier ointment to intact skin -Ensure adequate hydration/nutrition, supplementation per primary team -Ensure off-loading to all bony areas (heels, ankles, hips and tailbone) with Allevyn/Optifoam -Clean ulcer with NS and apply Bacitracin d/w attending Dr Mckenzie
[2018-11-17] MEDS: amLODIPine BESYLATE 10 MG TABLET (FP) GT SCH (09:37)
[2018-11-17] MEDS: ENOXAPARIN NA (PORCINE) 40 MG/0.4 ML DISP.SYRIN SQ SCH (09:37)
[2018-11-17] MEDS: ASPIRIN 81 MG CHEWABLE TABLETS GT SCH (09:37)
[2018-11-17] MEDS ORDERED: CEFTRIAXONE 2 GM-D5W BAG 2 GM/50 ML BAG IVPB SCH (10:00)
--- NOTE | 2018-11-17 10:11 | CONSULT ---
Consult - text type - Consultation Consultation Note: NEUROLOGY CONSULT GREATLY APPRECIATED: This 78 yo RH woman with HTN, hypothyroidism and Chol is well-known to me with advanced Alzheimer's disease. Last consulted 06/16/18. Lives at home with daughter and health aides. S/P PEG placement 06/2018. On Memantine XR 28 mg. Listed allergies now include Depakote and quetiapine, which patient has tolerated well previously. At baseline she is non-verbal and bedbound. H/O Multiple recurrent UTI's. Now admitted for possible sacral ulcer, decreased appetite and "tremor" in hands. WBC= 17.1 - empirically started on IV Vanco and Zosyn AST 283-> 156; ALT 206> 139; ALk phos 193-> 152; CK 1386; Alb 1.7; TSH 5.14; UA WBC= 5; VPA= 41.1 CT of head (reviewed): Diffuse atrophy without masses or CVA ADARSH: T 99.9. Cor reg. No bruit. Neck restricted in all directions. PEG in situ. Contractures of knees. NEURO: Rests with eyes closed. Follows no commands. + glabella, snout, grasps L >R. Resists eye opening. R facial. Intermittent myoclonic jerks of hands. Rigid tone legs > arms. Normal reflexes. R Babinski. Decreased withdrawal to pinch all fours, but grimace. Impression: Severe B/L Cerebral dysfunction (OMS, chronic) c/w Advanced Alzheimer's Disease (AD) R/O left cerebral dysfunction All worsened by Toxic-Metabolic Encephalopathy (i.e wound infection, transaminitis) Suggest: Continue antibiotics, IV hydration and ID workup Add thiamine 250 mg IVP q8H x [address] (C-) Adjust Rx for hypothyroidism as indicated Observe off valproic acid as may increase LFTs (also antibiotics, i.e Zosyn) Thank you very much, Eugene Keene MD
--- NOTE | 2018-11-17 10:34 | EKG ---
Test Reason : Blood Pressure : / mmHG Vent. Rate : 110 BPM Atrial Rate : 110 BPM P-R Int : 126 ms QRS Dur : 082 ms QT Int : 304 ms P-R-T Axes : 059 079 027 degrees QTc Int : 411 ms SINUS TACHYCARDIA NONSPECIFIC T WAVE ABNORMALITY ABNORMAL ECG WHEN COMPARED WITH ECG OF 16-NOV-2018 15:15, T WAVE VARIATION Confirmed by VINCENT YE MD ([id number]) on 11/17/2018 10:34:35 AM Referred By: Confirmed By:VINCENT YE MD
--- NOTE | 2018-11-17 10:36 | EKG ---
Test Reason : Blood Pressure : / mmHG Vent. Rate : 113 BPM Atrial Rate : 113 BPM P-R Int : 124 ms QRS Dur : 082 ms QT Int : 334 ms P-R-T Axes : 052 062 044 degrees QTc Int : 458 ms SINUS TACHYCARDIA POSSIBLE LEFT ATRIAL ENLARGEMENT LEFT VENTRICULAR HYPERTROPHY ABNORMAL ECG WHEN COMPARED WITH ECG OF 25-OCT-2018 18:59, NO SIGNIFICANT CHANGE WAS FOUND Confirmed by VINCENT YE MD ([id number]) on 11/17/2018 10:36:05 AM Referred By: Confirmed By:VINCENT YE MD
[2018-11-17] MEDS ORDERED: PT OWN MED DRAWER 7, Y5N ONE (13:41)
[2018-11-17] MEDS: THIAMINE HCL 200 MG/2 ML VIAL IVPB SCH ×2 (14:23→22:00)
--- NOTE | 2018-11-17 15:25 | PN ---
Physical Exam: SUBJECTIVE: Patient seen and examined at bedside. OBJECTIVE: Vital Signs Period Temp Pulse Resp BP Sys/Torres Pulse Ox Last 24 Hr 98.6 F-98.7 F 77-113 18-20 111-138/61-94 96-100 GENERAL: Contracted, nonverbal HEAD: Normal with no signs of trauma. EYES: EOMI Sclera Clear NECK: Trachea midline, full range of motion, supple. LUNGS: Poor inspiratory effort. CTAB anteriorly HEART: RRR S1S2 ABDOMEN: PEG tube. Soft Nondistended EXTREMITIES: Contracted. . PSYCH: Normal mood, normal affect. SKIN: Sacral ulcer stage 2, nonoozing clean. Laboratory Results - last 24 hr 11/16/18 11/16/18 11/16/18 15:53 16:12 16:12 WBC 17.1 H RBC 3.58 L Hgb 10.0 L Hct 31.3 L MCV 87.3 MCH 27.9 MCHC 31.9 L RDW 18.5 H Plt Count 329 MPV 9.9 Absolute Neuts (auto) 14.6 H Total Counted 100 Neutrophils % 85.2 H Neutrophils % (Manual) 83.0 H Band Neutrophils % 1.0 Lymphocytes % 4.2 L D Lymphocytes % (Manual) 7.0 L Monocytes % 10.0 Monocytes % (Manual) 10 Eosinophils % 0.1 Basophils % 0.5 Nucleated RBC % 0 Differential Comment Man diff performed Platelet Estimate Adequate Platelet Comment Polychromasia 1+ Anisocytosis 1+ Macrocytosis 1+ PT with INR INR Sodium 136 Potassium 4.8 Chloride 99 Carbon Dioxide 29 Anion Gap 8 BUN 25.1 H Creatinine 0.8 Est GFR (CKD-EPI)AfAm 82.42 Est GFR (CKD-EPI)NonAf 71.11 POC Glucometer Random Glucose 120 H Lactic Acid Calcium 8.4 L Phosphorus 4.0 Magnesium 2.7 H Total Bilirubin 0.7 AST 283 H ALT 206 H Alkaline Phosphatase 193 H Creatine Kinase Creatine Kinase Index CK-MB (CK-2) Troponin I < 0.02 Total Protein 7.4 Albumin 1.7 L Lipase TSH 5.14 H Urine Color Dk yellow Urine Appearance Cloudy Urine pH 6.0 Ur Specific [place] 1.018 Urine Protein 1+ H Urine Glucose (UA) Negative Urine Ketones Negative Urine Blood Negative Urine Nitrite Negative Urine Bilirubin Negative Urine Urobilinogen 4.0 e.u/dl H Ur Leukocyte Esterase Trace Urine WBC (Auto) 5 Urine RBC (Auto) 7 Urine Casts (Auto) 4 U Epithel Cells (Auto) 6.8 Urine Bacteria (Auto) 1696.8 Valproic Acid Blood Type Antibody Screen 11/16/18 11/16/18 11/17/18 16:12 23:10 01:10 WBC RBC Hgb Hct MCV MCH MCHC RDW Plt Count MPV Absolute Neuts (auto) Total Counted Neutrophils % Neutrophils % (Manual) Band Neutrophils % Lymphocytes % Lymphocytes % (Manual) Monocytes % Monocytes % (Manual) Eosinophils % Basophils % Nucleated RBC % Differential Comment Platelet Estimate Platelet Comment Polychromasia Anisocytosis Macrocytosis PT with INR INR Sodium Potassium Chloride Carbon Dioxide Anion Gap BUN Creatinine Est GFR (CKD-EPI)AfAm Est GFR (CKD-EPI)NonAf POC Glucometer Random Glucose Lactic Acid Calcium Phosphorus Magnesium Total Bilirubin AST ALT Alkaline Phosphatase Creatine Kinase Creatine Kinase Index CK-MB (CK-2) Troponin I Total Protein Albumin Lipase 140 TSH Urine Color Urine Appearance Urine pH Ur Specific [place] Urine Protein Urine Glucose (UA) Urine Ketones Urine Blood Urine Nitrite Urine Bilirubin Urine Urobilinogen Ur Leukocyte Esterase Urine WBC (Auto) Urine RBC (Auto) Urine Casts (Auto) U Epithel Cells (Auto) Urine Bacteria (Auto) Valproic Acid 41.1 L Blood Type O POSITIVE Antibody Screen Negative 11/17/18 11/17/18 11/17/18 01:10 03:12 05:56 WBC RBC Hgb Hct MCV MCH MCHC RDW Plt Count MPV Absolute Neuts (auto) Total Counted Neutrophils % Neutrophils % (Manual) Band Neutrophils % Lymphocytes % Lymphocytes % (Manual) Monocytes % Monocytes % (Manual) Eosinophils % Basophils % Nucleated RBC % Differential Comment Platelet Estimate Platelet Comment Polychromasia Anisocytosis Macrocytosis PT with INR INR Sodium Potassium Chloride Carbon Dioxide Anion Gap BUN Creatinine Est GFR (CKD-EPI)AfAm Est GFR (CKD-EPI)NonAf POC Glucometer 89 97 Random Glucose Lactic Acid 2.4 H* Calcium Phosphorus Magnesium Total Bilirubin AST ALT Alkaline Phosphatase Creatine Kinase Creatine Kinase Index CK-MB (CK-2) Troponin I Total Protein Albumin Lipase TSH Urine Color Urine Appearance Urine pH Ur Specific [place] Urine Protein Urine Glucose (UA) Urine Ketones Urine Blood Urine Nitrite Urine Bilirubin Urine Urobilinogen Ur Leukocyte Esterase Urine WBC (Auto) Urine RBC (Auto) Urine Casts (Auto) U Epithel Cells (Auto) Urine Bacteria (Auto) Valproic Acid Blood Type Antibody Screen 11/17/18 11/17/18 11/17/18 07:33 07:33 07:33 WBC 15.3 H RBC 3.25 L Hgb 9.0 L Hct 27.9 L MCV 85.9 MCH 27.7 MCHC 32.2 RDW 17.9 H Plt Count 319 MPV 9.0 Absolute Neuts (auto) 13.3 H Total Counted Neutrophils % 86.7 H Neutrophils % (Manual) Band Neutrophils % Lymphocytes % 3.9 L Lymphocytes % (Manual) Monocytes % 9.1 Monocytes % (Manual) Eosinophils % 0.1 Basophils % 0.2 Nucleated RBC % 0 Differential Comment Platelet Estimate Platelet Comment Polychromasia Anisocytosis Macrocytosis PT with INR 14.60 H INR 1.23 H Sodium 138 Potassium 4.0 Chloride 102 Carbon Dioxide 28 Anion Gap 9 BUN 24.2 H Creatinine 0.5 L Est GFR (CKD-EPI)AfAm 108.20 Est GFR (CKD-EPI)NonAf 93.36 POC Glucometer Random Glucose 91 Lactic Acid Calcium 7.9 L Phosphorus 4.5 Magnesium 2.5 H Total Bilirubin 0.4 AST 156 H ALT 139 H Alkaline Phosphatase 152 H Creatine Kinase 1386 H Creatine Kinase Index 0.1 CK-MB (CK-2) 1.8 Troponin I < 0.02 Total Protein 6.4 Albumin 1.4 L Lipase TSH Urine Color Urine Appearance Urine pH Ur Specific [place] Urine Protein Urine Glucose (UA) Urine Ketones Urine Blood Urine Nitrite Urine Bilirubin Urine Urobilinogen Ur Leukocyte Esterase Urine WBC (Auto) Urine RBC (Auto) Urine Casts (Auto) U Epithel Cells (Auto) Urine Bacteria (Auto) Valproic Acid Blood Type Antibody Screen 11/17/18 07:33 WBC RBC Hgb Hct MCV MCH MCHC RDW Plt Count MPV Absolute Neuts (auto) Total Counted Neutrophils % Neutrophils % (Manual) Band Neutrophils % Lymphocytes % Lymphocytes % (Manual) Monocytes % Monocytes % (Manual) Eosinophils % Basophils % Nucleated RBC % Differential Comment Platelet Estimate Platelet Comment Polychromasia Anisocytosis Macrocytosis PT with INR INR Sodium Potassium Chloride Carbon Dioxide Anion Gap BUN Creatinine Est GFR (CKD-EPI)AfAm Est GFR (CKD-EPI)NonAf POC Glucometer Random Glucose Lactic Acid 1.2 Calcium Phosphorus Magnesium Total Bilirubin AST ALT Alkaline Phosphatase Creatine Kinase Creatine Kinase Index CK-MB (CK-2) Troponin I Total Protein Albumin Lipase TSH Urine Color Urine Appearance Urine pH Ur Specific [place] Urine Protein Urine Glucose (UA) Urine Ketones Urine Blood Urine Nitrite Urine Bilirubin Urine Urobilinogen Ur Leukocyte Esterase Urine WBC (Auto) Urine RBC (Auto) Urine Casts (Auto) U Epithel Cells (Auto) Urine Bacteria (Auto) Valproic Acid Blood Type Antibody Screen Active Medications Generic Name Dose Route Start Last Admin Trade Name Freq PRN Reason Stop Dose Admin Amlodipine Besylate 10 mg 11/17/18 10:00 11/17/18 09:37 Norvasc - GT 10 mg DAILY NABIL Administration Artificial Tears 1 drop 11/17/18 06:00 11/17/18 06:37 Artificial Tears OU Not Given TID NABIL Aspirin 81 mg 11/17/18 10:00 11/17/18 09:37 Asa - GT 81 mg DAILY NABIL Administration Bacitracin 1 applic 11/17/18 12:30 Bacitracin - TP DAILY NABIL Enoxaparin Sodium 40 mg 11/17/18 10:00 11/17/18 09:37 Lovenox - SQ 40 mg DAILY NABIL Administration Vancomycin HCl 1,000 mg/ 250 mls @ 200 mls/hr 11/16/18 23:15 Dextrose IVPB Q24H NABIL Protocol Piperacillin Sod/Tazobactam 50 mls @ 100 mls/hr 11/16/18 23:15 Sod 3.375 gm/ Dextrose IVPB Q8H-IV NABIL Protocol Piperacillin Sod/Tazobactam 50 mls @ 100 mls/hr 11/16/18 23:45 11/17/18 15:06 Sod 3.375 gm/ Dextrose IVPB 11/17/18 16:14 100 mls/hr Q8H NABIL Administration Levothyroxine Sodium 50 mcg 11/17/18 07:00 11/17/18 06:41 Synthroid - GT 50 mcg Q2D@0700 NABIL Administration Non-Formulary Medication 28 mg 11/17/18 10:00 Memantine Hcl [Namenda Xr] GT DAILY [facility] Thiamine HCl 250 mg 11/17/18 14:00 11/17/18 14:23 Vitamin B1 Injection - IVPB 11/20/18 13:59 250 mg TID NABIL Administration ASSESSMENT/PLAN: Pt is a 78 y/o F with PMHx of Parkinson's, Alzheimer's, HTN, HLD, hypothyroidism , seizure disorder, decubitus ulcer, s/p PEG tube placement, chronic arm tremors , brought from home by daughter, (pts primary managed care coordinator) for new b/l UE tremors, persistent (up to 10-15 continous) over 2-3 mins. #new b/l UE tremors Valproic acid subtherapeutic in ED Received 250mg Valproic acid in ED., added 500mg Dr Keene- on board----> Continue antibiotics, IV hydration and ID workup. Add thiamine 250 mg IVP q8H x [address] (C-). Adjust Rx for hypothyroidism. Observe off valproic acid as may increase LFTs (also antibiotics , i.e Zosyn) #AMS Per daughter, gradually increasing somnolence over past 2 weeks Could be in setting of worsening parkinson's/Alzheimers- cont mematine Neuro on board Dr Keene #Parkinson's/Alzheimer's Cont mementine #Leukocytosis WBC 17 on admission. Empirically placed on Zosyn and Vancomycin. Continue to trend WBC. #Decubitus ulcer wound cx pending Consider wound team #HTN Cont amlodipine 10mg #HLD Hold statins in setting of elevated transaminases #hypothyroidism TSH elevated In setting of acute possible infectious process May need repeat TSH #seizure disorder Per neurology: Observe off valproic acid as may increase LFTs (also antibiotics , i.e Zosyn) #Anemia MCV-87.3 Stool occult #RLE edema Duplex US- shows rice's cyst #FEN No Standing fluid Monitor Electrolytes NPO DVT ppx: Lovenox-sq Med surg Visit type - Emergency Visit Emergency Visit: Yes ED Registration Date: 11/16/18 Care time: The patient presented to the Emergency Department on the above date and was hospitalized for further evaluation of their emergent condition. - New Patient This patient is new to me today: Yes Date on this admission: 11/17/18 - Critical Care Critical Care patient: No - Discharge Referral Referred to [facility] Med P.C.: No
[2018-11-17] MEDS: BACITRACIN 15 GM TUBE TOPICAL OINTMENT TP SCH (17:42)
--- NOTE | 2018-11-17 18:45 | CON.ID ---
Consult Consult Specialty:: infectious disease Referred by:: hospitalist Reason for Consultation:: leukocytosis - History of Present Illness Chief Complaint: brought by family to ER History of Present Illness: 78 yo female bedridden at home with PD, ALzheimer's Disease, HTN, HLD - admitted with increased tremors, lethargy found to have low grade temp 99.9 and elevated leukocytosis 17k - Past Medical History [employer]: Yes: Alzheimer's, Dementia, Parkinson's, Seizure Cardio/Vascular: Yes: HTN ...: No - Past Surgical History Additional Surgical History: Gtube - Alcohol/Substance Use Hx Alcohol Use: No History of Substance Use: reports: None - Smoking History Smoking history: Never smoked Have you smoked in the past 12 months: No - Social History Usual Living Arrangement: With Child ADL: Family Assistance History of Recent Travel: No Home Medications - Allergies Allergies/Adverse Reactions: Allergies Allergy/AdvReac Type Severity Reaction Status Date / Time strawberry Allergy Mild Hives Verified 11/16/18 16:35 tomato Allergy Mild Hives Verified 11/16/18 16:35 divalproex sodium Allergy Verified 11/16/18 16:35 [From Depakote] lisinopril Allergy Verified 11/16/18 16:35 No Known Drug Allergies Allergy Verified 11/16/18 16:35 quetiapine [From Seroquel] Allergy Verified 11/16/18 16:35 - Home Medications Home Medications: Ambulatory Orders Aspirin [ASA -] 81 mg GT DAILY 04/17/17 Atorvastatin Ca [Lipitor] 40 mg GT HS 04/17/17 Levothyroxine [Synthroid -] 50 mcg GT ASDIR 04/17/17 Memantine HCl [Namenda Xr] 28 mg GT DAILY 04/17/17 Polyethylene Glycol 3350 [Miralax 119 gm Btl -] 17 g GT PRN PRN 06/17/18 Polyvinyl Alcohol [Artificial Tears] 1 drop OU TID #1 drops 07/28/18 Amlodipine Besylate [Norvasc -] 10 mg GT DAILY 11/16/18 Family Disease History - Family Disease History Family Disease History: Other: Daughter (HTN) Review of Systems Unable to obtain ROS, reason: unable to obtain Physical Exam Vital Signs: Vital Signs Temperature 98.6 F 11/17/18 13:00 Pulse Rate 110 H 11/17/18 13:00 Respiratory Rate 19 11/17/18 13:00 Blood Pressure 138/85 11/17/18 13:00 O2 Sat by Pulse Oximetry (%) 96 11/17/18 09:00 Constitutional: Yes: Thin Eyes: Yes: Conjunctiva Clear HENT: Yes: Atraumatic, Normocephalic Neck: Yes: Trachea Midline Cardiovascular: Yes: Regular Rate and Rhythm Respiratory: Yes: CTA Bilaterally, Diminished (bs at bases) Gastrointestinal: Yes: Normal Bowel Sounds, Soft, Other (gt site clean) ...Rectal Exam: Yes: Deferred Renal/: No: CVA Tenderness - Left, CVA Tenderness - Right Extremities: Yes: WNL, Other (contracted) Edema: Yes Wound/Incision: Yes: Other (2 cm sacral ulcer - clean) Labs: CBC, BMP 11/17/18 07:33 11/17/18 07:33 Microbiology 11/16/18 21:50 Ulcer Gram Stain - Final Imaging - Results Chest X-ray: Report Reviewed, Image Reviewed Ultrasound: Report Reviewed Problem List - Problems (1) Leukocytosis Code(s): D72.829 - ELEVATED WHITE BLOOD CELL COUNT, UNSPECIFIED Qualifiers: Leukocytosis type: unspecified Qualified Code(s): D72.829 - Elevated white blood cell count, unspecified (2) LFT elevation Code(s): R94.5 - ABNORMAL RESULTS OF LIVER FUNCTION STUDIES Assessment/Plan leukocytosis- s/p 24 hours of zosyn no blood cultures sent abnl lfts- trend- ultrasound unrevealing f/u labs in am consider ct scan chest- ?aspiration continue zosyn for now no signs wound infection lefts trending down rhabdomyolysis- ?seizures, edmonds explan lfts too overall prognosis is poor d/w hospitalist
--- NOTE | 2018-11-17 21:21 | PN ---
Teaching Attending Note Name of Resident: Rock White ATTENDING PHYSICIAN STATEMENT I saw and evaluated the patient. I reviewed the resident's note and discussed the case with the resident. I agree with the resident's findings and plan as documented. SUBJECTIVE: Patient is nonverbal and has parkinson's dementia. lying in bed with no acute distress. OBJECTIVE: Vital Signs Temperature 98.6 F 11/17/18 13:00 Pulse Rate 110 H 11/17/18 13:00 Respiratory Rate 19 11/17/18 13:00 Blood Pressure 138/85 11/17/18 13:00 O2 Sat by Pulse Oximetry (%) 96 11/17/18 09:00 GEN:Lying in bed, non verbal Eyes: Conjunctiva Clear, EOM Intact, PERRL. HENT: Atraumatic,NC Cardiovascular: S1, S2 positive, tachycardic Respiratory: decreased BS BL Gastrointestinal: positive for (PEG tube in place LUQ- clean,dry, no erythema) SKIN: decubitus Ulcer (Saccral decubitus stage 3-2x2cm, non purulent, clean, dry ) Neurological:Non verbal, contracted Psychiatric: nonverbal CBCD WBC 15.3 K/mm3 (4.0-10.0) H 11/17/18 07:33 RBC 3.25 M/mm3 (3.60-5.2) L 11/17/18 07:33 Hgb 9.0 GM/dL (10.7-15.3) L 11/17/18 07:33 Hct 27.9 % (32.4-45.2) L 11/17/18 07:33 MCV 85.9 fl (80-96) 11/17/18 07:33 MCHC 32.2 g/dl (32.0-36.0) 11/17/18 07:33 RDW 17.9 % (11.6-15.6) H 11/17/18 07:33 Plt Count 319 K/MM3 (134-434) 11/17/18 07:33 MPV 9.0 fl (7.5-11.1) 11/17/18 07:33 CMP Sodium 138 mmol/L (136-145) 11/17/18 07:33 Potassium 4.0 mmol/L (3.5-5.1) 11/17/18 07:33 Chloride 102 mmol/L (98-107) 11/17/18 07:33 Carbon Dioxide 28 mmol/L (21-32) 11/17/18 07:33 Anion Gap 9 MMOL/L (8-16) 11/17/18 07:33 BUN 24.2 mg/dL (7-18) H 11/17/18 07:33 Creatinine 0.5 mg/dL (0.55-1.3) L 11/17/18 07:33 Random Glucose 91 mg/dL (74-106) 11/17/18 07:33 Calcium 7.9 mg/dL (8.5-10.1) L 11/17/18 07:33 Total Bilirubin 0.4 mg/dL (0.2-1) 11/17/18 07:33 AST 156 U/L (15-37) H 11/17/18 07:33 ALT 139 U/L (13-61) H 11/17/18 07:33 Alkaline Phosphatase 152 U/L (45-117) H 11/17/18 07:33 Total Protein 6.4 g/dl (6.4-8.2) 11/17/18 07:33 Albumin 1.4 g/dl (3.4-5.0) L 11/17/18 07:33 CARDIAC ENZYMES Creatine Kinase 1386 U/L (26-192) H 11/17/18 07:33 Troponin I < 0.02 ng/ml (0.00-0.05) 11/17/18 07:33 Current Medications Generic Name Dose Route Start Last Admin Trade Name Freq PRN Reason Stop Dose Admin Amlodipine Besylate 10 mg 11/17/18 10:00 11/17/18 09:37 Norvasc - GT 10 mg DAILY NABIL Administration Artificial Tears 1 drop 11/17/18 06:00 11/17/18 17:43 Artificial Tears OU Not Given TID NABIL Aspirin 81 mg 11/17/18 10:00 11/17/18 09:37 Asa - GT 81 mg DAILY NABIL Administration Bacitracin 1 applic 11/17/18 12:30 11/17/18 17:42 Bacitracin - TP 1 applic DAILY NABIL Administration Enoxaparin Sodium 40 mg 11/17/18 10:00 11/17/18 09:37 Lovenox - SQ 40 mg DAILY NABIL Administration Piperacillin Sod/Tazobactam 50 mls @ 100 mls/hr 11/18/18 02:00 Sod 3.375 gm/ Dextrose IVPB Q8H-IV NABIL Protocol Levothyroxine Sodium 50 mcg 11/17/18 07:00 11/17/18 06:41 Synthroid - GT 50 mcg Q2D@0700 NABIL Administration Non-Formulary Medication 28 mg 11/17/18 10:00 Memantine Hcl [Namenda Xr] GT DAILY NABIL Thiamine HCl 250 mg 11/17/18 14:00 11/17/18 14:23 Vitamin B1 Injection - IVPB 11/20/18 13:59 250 mg TID NABIL Administration Home Medications Medication Instructions Recorded Aspirin [ASA -] 81 mg GT DAILY 04/17/17 Atorvastatin Ca [Lipitor] 40 mg GT HS 04/17/17 Levothyroxine [Synthroid -] 50 mcg GT ASDIR 04/17/17 Memantine HCl [Namenda Xr] 28 mg GT DAILY 04/17/17 Polyethylene Glycol 3350 [Miralax 17 g GT PRN PRN 06/17/18 119 gm Btl -] Polyvinyl Alcohol [Artificial 1 drop OU TID #1 drops 07/28/18 Tears] Amlodipine Besylate [Norvasc -] 10 mg GT DAILY 11/16/18 ASSESSMENT AND PLAN: Patient is a 78 y/o F with PMHx of Parkinson's, Alzheimer's, HTN, HLD, hypothyroidism, seizure disorder, decubitus ulcer, s/p PEG tube placement, chronic arm tremors, brought from home by daughter, (pts primary rn coronary care unit) for new b/l UE tremors.. #Acute Leukocytosis r/o Infection on ZOsyn as per ID continue zosyn , brennan cx pending , discussed with ID will order CT of abdomen and chest. #Parkinson's/Alzheimer's exacerbation due to having infection on thiamine as per neuro #Elevated LFTs /Transaminitis will monitor possible due to infection , hold statins # Mild elevation of CPK/Rhabdomyelisis IVF continue #decubitus ulcer wound care #HTN :cont amlodipine 10mg #hypothyroidism; continue thyroid meds. #seizure disorder: continue meds #Normocytic anemia monitor #RLE edema: Duplex US- shows rice's cyst Lovenox-sq
[2018-11-18] MEDS ORDERED: DEXTROSE 5%-WATER - 50 ML IVPB ONE ×4 (01:36→21:06)
[2018-11-18] MEDS ORDERED: PIPERACILLIN/TAZOBACTAM 3.375 GM VIAL IVPB ONE ×4 (01:36→21:06)
[2018-11-18] MEDS: PIPERACILLIN/TAZOB 3.375 GM 3.375 GM in DEXTROSE 5%-WATER - 50 ML IVPB SCH ×4 (01:57→17:36)
[2018-11-18] MEDS: THIAMINE HCL 200 MG/2 ML VIAL IVPB SCH ×3 (05:38→23:05)
[2018-11-18] MEDS: ARTIFICIAL TEARS (POLYVINYL ALCOHOL) OPTH DROPS OU SCH ×3 (05:38→22:13)
[2018-11-18] MEDS ORDERED: D5-1/2NS+20 MEQ KCL - 20 MEQ/1,000 ML INFUS.BAG IV SCH (08:45)
[2018-11-18 08:46] LABS: HEMATOCRIT 30.5 % (32.4-45.2); HEMOGLOBIN 9.7 GM/dL (10.7-15.3); MCH 27.7 pg (25.7-33.7); MEAN CELL VOLUME 86.6 fl (80-96); MEAN PLT VOLUME 8.9 fl (7.5-11.1); RBC 3.52 M/mm3 (3.60-5.2); RDW 18.5 % (11.6-15.6); WHITE BLOOD COUNT 16.1 K/mm3 (4.0-10.0)
[2018-11-18 09:02] LABS: BLOOD UREA NITROGEN 22.1 mg/dL (7-18); CALCIUM 8.7 mg/dL (8.5-10.1); CREATININE 0.5 mg/dL (0.55-1.3); MAGNESIUM 2.8 mg/dL (1.8-2.4); PHOSPHOROUS 3.8 mg/dL (2.5-4.9); POTASSIUM 3.7 mmol/L (3.5-5.1)
[2018-11-18 09:15] LABS: PLATELET COUNT 432 K/MM3 (134-434)
[2018-11-18 09:21] LABS: ALBUMIN 1.7 g/dl (3.4-5.0); BILIRUBIN,TOTAL 0.6 mg/dL (0.2-1); TOT PROT 7.2 g/dl (6.4-8.2)
[2018-11-18] MEDS: amLODIPine BESYLATE 10 MG TABLET (FP) GT SCH (09:53)
[2018-11-18] MEDS: ASPIRIN 81 MG CHEWABLE TABLETS GT SCH (09:53)
[2018-11-18] MEDS: ENOXAPARIN NA (PORCINE) 40 MG/0.4 ML DISP.SYRIN SQ SCH (09:54)
[2018-11-18] MEDS: BACITRACIN 15 GM TUBE TOPICAL OINTMENT TP SCH (09:55)
[2018-11-18] MEDS ORDERED: LACTATED RINGERS SOLUTION 1,000 ML/1,000 ML INFUS.BAG IV SCH ×2 (10:45→10:48)
[2018-11-18] MEDS: PATIENT'S OWN MEDICATION (NON-FORMULARY) (Memantine Hcl [Namenda Xr] 28 MG) GT SCH ×2 (12:18→12:19)
--- NOTE | 2018-11-18 14:03 | PN ---
Teaching Attending Note Name of Resident: Rock White ATTENDING PHYSICIAN STATEMENT I saw and evaluated the patient. I reviewed the resident's note and discussed the case with the resident. I agree with the resident's findings and plan as documented. SUBJECTIVE: Patient is lying in bed with parkinsonism dementia OBJECTIVE: Vital Signs Temperature 98.6 F 11/18/18 09:00 Pulse Rate 101 H 11/18/18 09:00 Respiratory Rate 20 11/18/18 09:00 Blood Pressure 112/67 11/18/18 09:00 O2 Sat by Pulse Oximetry (%) 97 11/18/18 09:00 GEN:Lying in bed, non verbal Eyes: Conjunctiva Clear, EOM Intact, PERRL. HENT: Atraumatic,NC Cardiovascular: S1, S2 positive, tachycardic Respiratory: decreased BS BL Gastrointestinal: positive for (PEG tube in place LUQ- clean,dry, no erythema) SKIN: decubitus Ulcer (Sacral decubitus stage 3-2x2cm, non purulent, clean, dry) Neurological:Non verbal, contracted Psychiatric: nonverbal CBCD WBC 16.1 K/mm3 (4.0-10.0) H 11/18/18 08:00 RBC 3.52 M/mm3 (3.60-5.2) L 11/18/18 08:00 Hgb 9.7 GM/dL (10.7-15.3) L 11/18/18 08:00 Hct 30.5 % (32.4-45.2) L 11/18/18 08:00 MCV 86.6 fl (80-96) 11/18/18 08:00 MCHC 32.0 g/dl (32.0-36.0) 11/18/18 08:00 RDW 18.5 % (11.6-15.6) H 11/18/18 08:00 Plt Count 432 K/MM3 (134-434) D 11/18/18 08:00 MPV 8.9 fl (7.5-11.1) 11/18/18 08:00 CMP Sodium 143 mmol/L (136-145) 11/18/18 08:00 Potassium 3.7 mmol/L (3.5-5.1) 11/18/18 08:00 Chloride 108 mmol/L (98-107) H 11/18/18 08:00 Carbon Dioxide 26 mmol/L (21-32) 11/18/18 08:00 Anion Gap 9 MMOL/L (8-16) 11/18/18 08:00 BUN 22.1 mg/dL (7-18) H 11/18/18 08:00 Creatinine 0.5 mg/dL (0.55-1.3) L 11/18/18 08:00 Random Glucose 78 mg/dL (74-106) 11/18/18 08:00 Calcium 8.7 mg/dL (8.5-10.1) 11/18/18 08:00 Total Bilirubin 0.6 mg/dL (0.2-1) 11/18/18 08:00 AST 116 U/L (15-37) H 11/18/18 08:00 ALT 119 U/L (13-61) H 11/18/18 08:00 Alkaline Phosphatase 162 U/L (45-117) H 11/18/18 08:00 Total Protein 7.2 g/dl (6.4-8.2) 11/18/18 08:00 Albumin 1.7 g/dl (3.4-5.0) L 11/18/18 08:00 CARDIAC ENZYMES Creatine Kinase 1386 U/L (26-192) H 11/17/18 07:33 Troponin I < 0.02 ng/ml (0.00-0.05) 11/17/18 07:33 Current Medications Generic Name Dose Route Start Last Admin Trade Name Freq PRN Reason Stop Dose Admin Amlodipine Besylate 10 mg 11/17/18 10:00 11/18/18 09:53 Norvasc - GT 10 mg DAILY NABIL Administration Artificial Tears 1 drop 11/17/18 06:00 11/18/18 05:38 Artificial Tears OU 1 drop TID NABIL Administration Aspirin 81 mg 11/17/18 10:00 11/18/18 09:53 Asa - GT 81 mg DAILY NABIL Administration Bacitracin 1 applic 11/17/18 12:30 11/18/18 09:55 Bacitracin - TP 1 applic DAILY NABIL Administration Enoxaparin Sodium 40 mg 11/17/18 10:00 11/18/18 09:54 Lovenox - SQ 40 mg DAILY NABIL Administration Piperacillin Sod/Tazobactam 50 mls @ 100 mls/hr 11/18/18 02:00 11/18/18 09:53 Sod 3.375 gm/ Dextrose IVPB 100 mls/hr Q8H-IV NABIL Administration Protocol Lactated Ringer's 1,000 ml in 1,000 mls @ 75 mls/hr 11/18/18 10:48 11/18/18 12:32 Lactated Ringers Solution IV 11/19/18 00:04 75 mls/hr ASDIR NABIL Administration Levothyroxine Sodium 50 mcg 11/17/18 07:00 11/17/18 06:41 Synthroid - GT 50 mcg Q2D@0700 NABIL Administration Memantine 10 mg 11/18/18 22:00 Namenda - PO BID NABIL Thiamine HCl 250 mg 11/17/18 14:00 11/18/18 05:38 Vitamin B1 Injection - IVPB 11/20/18 13:59 250 mg TID NABIL Administration Home Medications Medication Instructions Recorded Aspirin [ASA -] 81 mg GT DAILY 04/17/17 Atorvastatin Ca [Lipitor] 40 mg GT HS 04/17/17 Levothyroxine [Synthroid -] 50 mcg GT ASDIR 04/17/17 Memantine HCl [Namenda Xr] 28 mg GT DAILY 04/17/17 Polyethylene Glycol 3350 [Miralax 17 g GT PRN PRN 06/17/18 119 gm Btl -] Polyvinyl Alcohol [Artificial 1 drop OU TID #1 drops 07/28/18 Tears] Amlodipine Besylate [Norvasc -] 10 mg GT DAILY 11/16/18 Microbiology 11/16/18 21:50 Ulcer Gram Stain - Final 11/16/18 21:50 Ulcer Wound Culture - Preliminary Presumptive Ps Aeruginosa Lactose Fermenting Neg Bacilli 11/16/18 15:53 Urine - Urine - Catheterized Urine Culture - Preliminary Group D Strep Or Entero Coccus ASSESSMENT AND PLAN: Patient is a 78 y/o F with PMHx of Parkinson's, Alzheimer's, HTN, HLD, hypothyroidism, seizure disorder, decubitus ulcer, s/p PEG tube placement, chronic arm tremors, brought from home by daughter, (pts primary assurance services manager health care) for new b/l UE tremors.. #Acute Leukocytosis most likely due to UTI on ZOsyn and added Vancomycin by ID , sensitivity is pending , CT of abdomen and chest and pelvis is pending. #Parkinson's/Alzheimer's exacerbation due to having infection on thiamine as per neuro #Elevated LFTs /Transaminitis will monitor possible due to infection , hold statins ,will continue to monitor # Mild elevation of CPK/Rhabdomyelisis IVF continue #decubitus ulcer wound care #HTN :cont amlodipine 10mg #hypothyroidism; continue thyroid meds. #seizure disorder: continue meds #Normocytic anemia monitor #RLE edema: Duplex US- shows rice's cyst Lovenox-sq
[2018-11-18] MEDS ORDERED: VANCOMYCIN 1 GRAM (PRE-DOCKED) 1,000 MG/250 ML BAG IVPB ONE (14:06)
--- NOTE | 2018-11-18 14:06 | PN ---
Progress Note (short form) - Note Progress Note: persistent leukocytosis more alert Vital Signs Period Temp Pulse Resp BP Sys/Torres Pulse Ox Last 24 Hr 97.7 F-99.5 F 101-106 17-20 112-132/59-83 97-97 cor-rrr lungs decreased bs at bases abd soft, +GT NT ext contracted small sacral ulcer clean CBC, BMP 11/18/18 08:00 11/18/18 08:00 Microbiology 11/16/18 21:50 Ulcer Gram Stain - Final 11/16/18 21:50 Ulcer Wound Culture - Preliminary Presumptive Ps Aeruginosa Lactose Fermenting Neg Bacilli 11/16/18 15:53 Urine - Urine - Catheterized Urine Culture - Preliminary Group D Strep Or Entero Coccus Current Medications Amlodipine Besylate (Norvasc -) 10 mg GT DAILY [facility] Last Admin: 11/18/18 09:53 Dose: 10 mg Artificial Tears (Artificial Tears) 1 drop OU TID [facility] Last Admin: 11/18/18 05:38 Dose: 1 drop Aspirin (Asa -) 81 mg GT DAILY [facility] Last Admin: 11/18/18 09:53 Dose: 81 mg Bacitracin (Bacitracin -) 1 applic TP DAILY [facility] Last Admin: 11/18/18 09:55 Dose: 1 applic Enoxaparin Sodium (Lovenox -) 40 mg SQ DAILY [facility] Last Admin: 11/18/18 09:54 Dose: 40 mg Piperacillin Sod/Tazobactam (Sod 3.375 gm/ Dextrose) 50 mls @ 100 mls/hr IVPB Q8H-IV [facility]; Protocol Last Admin: 11/18/18 09:53 Dose: 100 mls/hr Lactated Ringer's (Lactated Ringers Solution) 1,000 ml in 1,000 mls @ 75 mls/ hr IV ASDIR [facility] Stop: 11/19/18 00:04 Last Admin: 11/18/18 12:32 Dose: 75 mls/hr Levothyroxine Sodium (Synthroid -) 50 mcg GT Q2D@0700 [facility] Last Admin: 11/17/18 06:41 Dose: 50 mcg Memantine (Namenda -) 10 mg PO BID [facility] Thiamine HCl (Vitamin B1 Injection -) 250 mg IVPB TID [facility] Stop: 11/20/18 13:59 Last Admin: 11/18/18 05:38 Dose: 250 mg a/p leukocytosis persistent- ct scan chest/abd/pelvis continue zosyn, add vancomycin f/u cultures dementia small sacral ulcer- not infected Problem List - Problems (1) Leukocytosis Code(s): D72.829 - ELEVATED WHITE BLOOD CELL COUNT, UNSPECIFIED Qualifiers: Leukocytosis type: unspecified Qualified Code(s): D72.829 - Elevated white blood cell count, unspecified (2) LFT elevation Code(s): R94.5 - ABNORMAL RESULTS OF LIVER FUNCTION STUDIES
--- NOTE | 2018-11-18 16:52 | PN ---
Physical Exam: SUBJECTIVE: Patient seen and examined at bedside. Afebrile overnight. No acute events. OBJECTIVE: Vital Signs Period Temp Pulse Resp BP Sys/Torres Pulse Ox Last 24 Hr 97.7 F-99.5 F 90-106 17-20 102-132/47-83 97-97 GENERAL: Contracted, nonverbal HEAD: Normal with no signs of trauma. EYES: EOMI Sclera Clear NECK: Trachea midline, full range of motion, supple. LUNGS: Poor inspiratory effort. CTAB anteriorly HEART: RRR S1S2 ABDOMEN: PEG tube. Soft Nondistended EXTREMITIES: Contracted. . PSYCH: Normal mood, normal affect. SKIN: Sacral ulcer. Not examined today-11/18/18 Laboratory Results - last 24 hr 11/18/18 11/18/18 11/18/18 02:11 06:33 08:00 WBC 16.1 H RBC 3.52 L Hgb 9.7 L Hct 30.5 L MCV 86.6 MCH 27.7 MCHC 32.0 RDW 18.5 H Plt Count 432 D MPV 8.9 Sodium Potassium Chloride Carbon Dioxide Anion Gap BUN Creatinine Est GFR (CKD-EPI)AfAm Est GFR (CKD-EPI)NonAf POC Glucometer 73 82 Random Glucose Calcium Phosphorus Magnesium Total Bilirubin AST ALT Alkaline Phosphatase Total Protein Albumin 11/18/18 08:00 WBC RBC Hgb Hct MCV MCH MCHC RDW Plt Count MPV Sodium 143 Potassium 3.7 Chloride 108 H Carbon Dioxide 26 Anion Gap 9 BUN 22.1 H Creatinine 0.5 L Est GFR (CKD-EPI)AfAm 108.20 Est GFR (CKD-EPI)NonAf 93.36 POC Glucometer Random Glucose 78 Calcium 8.7 Phosphorus 3.8 Magnesium 2.8 H Total Bilirubin 0.6 AST 116 H ALT 119 H Alkaline Phosphatase 162 H Total Protein 7.2 Albumin 1.7 L Active Medications Generic Name Dose Route Start Last Admin Trade Name Freq PRN Reason Stop Dose Admin Amlodipine Besylate 10 mg 11/17/18 10:00 11/18/18 09:53 Norvasc - GT 10 mg DAILY [facility] Administration Artificial Tears 1 drop 11/17/18 06:00 11/18/18 14:58 Artificial Tears OU 1 drop TID [facility] Administration Aspirin 81 mg 11/17/18 10:00 11/18/18 09:53 Asa - GT 81 mg DAILY [facility] Administration Bacitracin 1 applic 11/17/18 12:30 11/18/18 09:55 Bacitracin - TP 1 applic DAILY [facility] Administration Enoxaparin Sodium 40 mg 11/17/18 10:00 11/18/18 09:54 Lovenox - SQ 40 mg DAILY [facility] Administration Piperacillin Sod/Tazobactam 50 mls @ 100 mls/hr 11/18/18 02:00 11/18/18 09:53 Sod 3.375 gm/ Dextrose IVPB 100 mls/hr Q8H-IV [facility] Administration Protocol Lactated Ringer's 1,000 ml in 1,000 mls @ 75 mls/hr 11/18/18 10:48 11/18/18 12:32 Lactated Ringers Solution IV 11/19/18 00:04 75 mls/hr ASDIR [facility] Administration Levothyroxine Sodium 50 mcg 11/17/18 07:00 11/17/18 06:41 Synthroid - GT 50 mcg Q2D@0700 [facility] Administration Memantine 10 mg 11/18/18 22:00 Namenda - PO BID [facility] Thiamine HCl 250 mg 11/17/18 14:00 11/18/18 14:57 Vitamin B1 Injection - IVPB 11/20/18 13:59 250 mg TID [facility] Administration ASSESSMENT/PLAN: Pt is a 78 y/o F with PMHx of Parkinson's, Alzheimer's, HTN, HLD, hypothyroidism , seizure disorder, decubitus ulcer, s/p PEG tube placement, chronic arm tremors , brought from home by daughter, (pts primary care technician) for new b/l UE tremors, persistent (up to 10-15 continous) over 2-3 mins. #new b/l UE tremors Valproic acid subtherapeutic in ED Received 250mg Valproic acid in ED., added 500mg Dr Keene- on board----> Continue antibiotics, IV hydration and ID workup. Add thiamine 250 mg IVP q8H x [address] (C-). Adjust Rx for hypothyroidism. Observe off valproic acid as may increase LFTs (also antibiotics , i.e Zosyn) #AMS Per daughter, gradually increasing somnolence over past 2 weeks Could be in setting of worsening parkinson's/Alzheimers- cont mematine Neuro on board Dr Keene #Parkinson's/Alzheimer's Cont mementine #Leukocytosis WBC 17 on admission. Empirically placed on Zosyn and Vancomycin. Continue to trend WBC. CT of abdomen and chest and pelvis official read pending #Decubitus ulcer wound cx ----> Pseudomonas Aeruginosa, Ucx Group D Strep, or Enterococcus wound care on board #HTN Cont amlodipine 10mg #HLD Hold statins in setting of elevated transaminases #hypothyroidism TSH elevated 5.4 In setting of acute possible infectious process #seizure disorder Per neurology: Observe off valproic acid as may increase LFTs (also antibiotics , i.e Zosyn) #Anemia MCV-87.3 Stool occult #RLE edema Duplex US- shows rice's cyst #FEN No Standing fluid Monitor Electrolytes Jevity 1.5 DVT ppx: Lovenox-sq Med surg Visit type - Emergency Visit Emergency Visit: Yes ED Registration Date: 11/16/18 Care time: The patient presented to the Emergency Department on the above date and was hospitalized for further evaluation of their emergent condition. - New Patient This patient is new to me today: No - Critical Care Critical Care patient: No - Discharge Referral Referred to [facility] Med P.C.: No
[2018-11-18] MEDS: MEMANTINE HCL 10 MG TABLET (FP) PO SCH (23:04)
[2018-11-19] MEDS ORDERED: DEXTROSE 5%-WATER - 50 ML IVPB ONE ×4 (01:32→21:57)
[2018-11-19] MEDS ORDERED: PIPERACILLIN/TAZOBACTAM 3.375 GM VIAL IVPB ONE ×4 (01:32→21:56)
[2018-11-19] MEDS: PIPERACILLIN/TAZOB 3.375 GM 3.375 GM in DEXTROSE 5%-WATER - 50 ML IVPB SCH ×3 (01:40→17:36)
[2018-11-19] MEDS: THIAMINE HCL 200 MG/2 ML VIAL IVPB SCH ×3 (06:00→22:25)
[2018-11-19] MEDS: LEVOTHYROXINE NA 50 MCG TABLET (FP) GT SCH (06:13)
[2018-11-19] MEDS: ARTIFICIAL TEARS (POLYVINYL ALCOHOL) OPTH DROPS OU SCH ×3 (06:13→22:25)
[2018-11-19 07:57] LABS: BLOOD UREA NITROGEN 18.2 mg/dL (7-18); CALCIUM 8.1 mg/dL (8.5-10.1); CREATININE 0.5 mg/dL (0.55-1.3); MAGNESIUM 2.4 mg/dL (1.8-2.4); POTASSIUM 3.3 mmol/L (3.5-5.1)
[2018-11-19 08:18] LABS: HEMOGLOBIN 8.5 GM/dL (10.7-15.3); MCH 27.2 pg (25.7-33.7); MCHC 31.4 g/dl (32.0-36.0); MEAN CELL VOLUME 86.5 fl (80-96); MEAN PLT VOLUME 8.6 fl (7.5-11.1); PLATELET COUNT 408 K/MM3 (134-434); RBC 3.12 M/mm3 (3.60-5.2); RDW 18.6 % (11.6-15.6); WHITE BLOOD COUNT 12.9 K/mm3 (4.0-10.0)
[2018-11-19] MEDS: KCL 10 MEQ IVPB 10 MEQ/100 ML INFUS.BAG IVPB SCH ×2 (08:34→10:37)
[2018-11-19] MEDS: AMINO ACIDS/PROTEIN HYDROLYS 30 ML LIQUID.PKT PO SCH ×2 (08:34→17:36)
[2018-11-19] MEDS: ENOXAPARIN NA (PORCINE) 40 MG/0.4 ML DISP.SYRIN SQ SCH (09:04)
[2018-11-19] MEDS: amLODIPine BESYLATE 10 MG TABLET (FP) GT SCH (09:04)
[2018-11-19] MEDS: MEMANTINE HCL 10 MG TABLET (FP) PO SCH ×2 (09:04→22:26)
[2018-11-19] MEDS: ASPIRIN 81 MG CHEWABLE TABLETS GT SCH (09:04)
--- NOTE | 2018-11-19 11:30 | PN ---
Progress Note (short form) - Note Progress Note: more alert leukocytosis improved ct scan with fecal impaction/stercoral proctitis, possible RLL infitrate/ atelectasis Vital Signs Period Temp Pulse Resp BP Sys/Torres Pulse Ox Last 24 Hr 99.0 F-99.8 F 88-91 21-22 102-131/47-70 97 cor-rrr lungs decreased bs at bases abd soft,nt, GT ext no edema CBC, BMP 11/19/18 06:34 11/19/18 06:34 Microbiology 11/16/18 15:53 Urine - Urine - Catheterized Urine Culture - Preliminary Enterococcus Faecalis 11/16/18 21:50 Ulcer Gram Stain - Final 11/16/18 21:50 Ulcer Wound Culture - Preliminary Presumptive Ps Aeruginosa Lactose Fermenting Neg Bacilli Current Medications Amino Acids (Prosource No Carb Liquid Pkt) 30 ml PO BID@0800,1730 [facility] Last Admin: 11/19/18 08:34 Dose: 30 ml Amlodipine Besylate (Norvasc -) 10 mg GT DAILY [facility] Last Admin: 11/19/18 09:04 Dose: 10 mg Artificial Tears (Artificial Tears) 1 drop OU TID [facility] Last Admin: 11/19/18 06:13 Dose: 1 drop Aspirin (Asa -) 81 mg GT DAILY [facility] Last Admin: 11/19/18 09:04 Dose: 81 mg Bacitracin (Bacitracin -) 1 applic TP DAILY [facility] Last Admin: 11/18/18 09:55 Dose: 1 applic Enoxaparin Sodium (Lovenox -) 40 mg SQ DAILY [facility] Last Admin: 11/19/18 09:04 Dose: 40 mg Piperacillin Sod/Tazobactam (Sod 3.375 gm/ Dextrose) 50 mls @ 100 mls/hr IVPB Q8H-IV [facility]; Protocol Last Admin: 11/19/18 10:37 Dose: 100 mls/hr Levothyroxine Sodium (Synthroid -) 50 mcg GT Q2D@0700 [facility] Last Admin: 11/19/18 06:13 Dose: 50 mcg Memantine (Namenda -) 10 mg PO BID [facility] Last Admin: 11/19/18 09:04 Dose: 10 mg Thiamine HCl (Vitamin B1 Injection -) 250 mg IVPB TID [facility] Stop: 11/20/18 13:59 Last Admin: 11/19/18 06:00 Dose: Not Given a/p leukocytosis improved- continue zosyn- possible pneumonia RLL fecal impaction /stercoral proctatitis- needs disimpaction dementia small sacral ulcer- not infected Problem List - Problems (1) Leukocytosis Code(s): D72.829 - ELEVATED WHITE BLOOD CELL COUNT, UNSPECIFIED Qualifiers: Leukocytosis type: unspecified Qualified Code(s): D72.829 - Elevated white blood cell count, unspecified (2) LFT elevation Code(s): R94.5 - ABNORMAL RESULTS OF LIVER FUNCTION STUDIES
--- NOTE | 2018-11-19 13:05 | PN ---
Teaching Attending Note Name of Resident: Rock White ATTENDING PHYSICIAN STATEMENT I saw and evaluated the patient. I reviewed the resident's note and discussed the case with the resident. I agree with the resident's findings and plan as documented. SUBJECTIVE: Patient comfortable lying in bed. She is non-verbal. OBJECTIVE: Vital Signs Period Temp Pulse Resp BP Sys/Torres Pulse Ox Last 24 Hr 99.0 F-99.8 F 88-91 20-22 102-134/47-70 97 HEART: S1S2, RRR LUNGS: Clear with poor effort ABDOMEN: Soft, non-distended, normal BS EXTREMITIES: No edema Laboratory Results - last 24 hr 11/19/18 11/19/18 06:34 06:34 WBC 12.9 H RBC 3.12 L Hgb 8.5 L Hct 27.0 L MCV 86.5 MCH 27.2 MCHC 31.4 L RDW 18.6 H Plt Count 408 MPV 8.6 Sodium 142 Potassium 3.3 L Chloride 109 H Carbon Dioxide 25 Anion Gap 8 BUN 18.2 H Creatinine 0.5 L Est GFR (CKD-EPI)AfAm 108.20 Est GFR (CKD-EPI)NonAf 93.36 Random Glucose 108 H Calcium 8.1 L Phosphorus 3.0 Magnesium 2.4 Creatine Kinase 300 H Creatine Kinase Index 0.5 CK-MB (CK-2) 1.5 Current Medications Generic Name Dose Route Start Last Admin Trade Name Freq PRN Reason Stop Dose Admin Amino Acids 30 ml 11/19/18 08:00 11/19/18 08:34 Prosource No Carb Liquid Pkt PO 30 ml BID@0800,1730 [facility] Administration Amlodipine Besylate 10 mg 11/17/18 10:00 11/19/18 09:04 Norvasc - GT 10 mg DAILY [facility] Administration Artificial Tears 1 drop 11/17/18 06:00 11/19/18 06:13 Artificial Tears OU 1 drop TID [facility] Administration Aspirin 81 mg 11/17/18 10:00 11/19/18 09:04 Asa - GT 81 mg DAILY [facility] Administration Bacitracin 1 applic 11/17/18 12:30 11/18/18 09:55 Bacitracin - TP 1 applic DAILY [facility] Administration Enoxaparin Sodium 40 mg 11/17/18 10:00 11/19/18 09:04 Lovenox - SQ 40 mg DAILY [facility] Administration Piperacillin Sod/Tazobactam 50 mls @ 100 mls/hr 11/18/18 02:00 11/19/18 10:37 Sod 3.375 gm/ Dextrose IVPB 100 mls/hr Q8H-IV [facility] Administration Protocol Levothyroxine Sodium 50 mcg 11/17/18 07:00 11/19/18 06:13 Synthroid - GT 50 mcg Q2D@0700 [facility] Administration Memantine 10 mg 11/18/18 22:00 11/19/18 09:04 Namenda - PO 10 mg BID [facility] Administration Thiamine HCl 250 mg 11/17/18 14:00 11/19/18 06:00 Vitamin B1 Injection - IVPB 11/20/18 13:59 Not Given TID [facility] ASSESSMENT AND PLAN: This is a 78 year old woman with a history of Parkinson's, dementia, HTN, hyperlipidemia, anemia, hypothyroidism, decubitus ulcer, PEG who presented to the ED with bilateral arm tremors. 1. Sepsis secondary to UTI, possible pneumonia - Urine culture growing E. faecalis - Continue Zosyn 2. Parkinson's disease with dementia - Continue Namenda 3. Hepatic transaminitis - Improving - Continue to hold Lipitor 4. Rhabdomyolysis - Improving 5. HTN - Continue Norvasc 6. Hyperlipidemia - Lipitor held secondary to transaminitis 7. Hypothyroidism - Continue Synthroid 8. RLE Odell's cyst 9. Anemia - Likely secondary to sepsis - Monitor hemoglobin 10. Stage III sacral pressure ulcer - Continue wound care
[2018-11-19] MEDS ORDERED: GLYCERIN 1 RECTAL SUPPOSITORY, ADULT RC PRN (13:54)
[2018-11-19] MEDS: BACITRACIN 15 GM TUBE TOPICAL OINTMENT TP SCH (14:29)
--- NOTE | 2018-11-19 14:40 | PN ---
Physical Exam: SUBJECTIVE: Patient seen and examined at bedside. No acute events overnight. OBJECTIVE: Vital Signs Period Temp Pulse Resp BP Sys/Torres Pulse Ox Last 24 Hr 99.0 F-99.8 F 88-91 20-22 102-134/47-70 97 GENERAL: Contracted, nonverbal HEAD: AT/NC EYES: EOMI Sclera Clear NECK: Trachea midline, full range of motion, supple. LUNGS: Poor inspiratory effort. CTAB anteriorly HEART: RRR S1S2 ABDOMEN: PEG tube. Soft Nondistended. No erythema around PEG site. EXTREMITIES: Contracted. . PSYCH: Normal mood, normal affect. SKIN: Sacral ulcer. Laboratory Results - last 24 hr 11/19/18 11/19/18 06:34 06:34 WBC 12.9 H RBC 3.12 L Hgb 8.5 L Hct 27.0 L MCV 86.5 MCH 27.2 MCHC 31.4 L RDW 18.6 H Plt Count 408 MPV 8.6 Sodium 142 Potassium 3.3 L Chloride 109 H Carbon Dioxide 25 Anion Gap 8 BUN 18.2 H Creatinine 0.5 L Est GFR (CKD-EPI)AfAm 108.20 Est GFR (CKD-EPI)NonAf 93.36 Random Glucose 108 H Calcium 8.1 L Phosphorus 3.0 Magnesium 2.4 Creatine Kinase 300 H Creatine Kinase Index 0.5 CK-MB (CK-2) 1.5 Active Medications Generic Name Dose Route Start Last Admin Trade Name Freq PRN Reason Stop Dose Admin Amino Acids 30 ml 11/19/18 08:00 11/19/18 08:34 Prosource No Carb Liquid Pkt PO 30 ml BID@0800,1730 [facility] Administration Amlodipine Besylate 10 mg 11/17/18 10:00 11/19/18 09:04 Norvasc - GT 10 mg DAILY [facility] Administration Artificial Tears 1 drop 11/17/18 06:00 11/19/18 14:27 Artificial Tears OU 1 drop TID [facility] Administration Aspirin 81 mg 11/17/18 10:00 11/19/18 09:04 Asa - GT 81 mg DAILY [facility] Administration Bacitracin 1 applic 11/17/18 12:30 11/19/18 14:29 Bacitracin - TP 1 applic DAILY [facility] Administration Enoxaparin Sodium 40 mg 11/17/18 10:00 11/19/18 09:04 Lovenox - SQ 40 mg DAILY [facility] Administration Glycerin 1 each 11/19/18 13:54 Glycerin Suppository Adult - RC DAILY [facility]STIP[facility] Piperacillin Sod/Tazobactam 50 mls @ 100 mls/hr 11/18/18 02:00 11/19/18 10:37 Sod 3.375 gm/ Dextrose IVPB 100 mls/hr Q8H-IV [facility] Administration Protocol Levothyroxine Sodium 50 mcg 11/17/18 07:00 11/19/18 06:13 Synthroid - GT 50 mcg Q2D@0700 [facility] Administration Memantine 10 mg 11/18/18 22:00 11/19/18 09:04 Namenda - PO 10 mg BID [facility] Administration Polyethylene Glycol 17 gm 11/19/18 22:00 Miralax (For Daily Use) - PEG BID [facility] Senna 8.8 mg 11/19/18 22:00 Senna Oral Solution - PEG HS [facility] Thiamine HCl 250 mg 11/17/18 14:00 11/19/18 14:33 Vitamin B1 Injection - IVPB 11/20/18 13:59 250 mg TID [facility] Administration ASSESSMENT/PLAN: Pt is a 78 y/o F with PMHx of Parkinson's, Alzheimer's, HTN, HLD, hypothyroidism , seizure disorder, decubitus ulcer, s/p PEG tube placement, chronic arm tremors , brought from home by daughter, (pts primary respiratory care assistant) for new b/l UE tremors, persistent (up to 10-15 continous) over 2-3 mins. #new b/l UE tremors Valproic acid subtherapeutic in ED Received 250mg Valproic acid in ED., added 500mg Dr Keene- on board----> Continue antibiotics, IV hydration and ID workup. Add thiamine 250 mg IVP q8H x [address] (C-). Adjust Rx for hypothyroidism. Observe off valproic acid as may increase LFTs (also antibiotics , i.e Zosyn) #AMS Per daughter, gradually increasing somnolence over past 2 weeks Could be in setting of worsening parkinson's/Alzheimers- cont mematine Neuro on board Dr Keene #Parkinson's/Alzheimer's Cont mementine #Leukocytosis WBC 17 on admission. WBC today 12.9, 11/19/2018 Empirically placed on Zosyn and Vancomycin. Continue to trend WBC. CT of abdomen and chest and pelvis---> Density posteriorly at the right base, possibly representing infiltrate or atelectasis. Small right pleural effusion. #Decubitus ulcer wound cx ----> Pseudomonas Aeruginosa, Ucx Group D Strep, or Enterococcus. Both sensitive to Zosyn. wound care on board #HTN Cont amlodipine 10mg #HLD Hold statins in setting of elevated transaminases #hypothyroidism TSH elevated 5.4 In setting of acute possible infectious process #seizure disorder Per neurology: Observe off valproic acid as may increase LFTs (also antibiotics , i.e Zosyn) #Anemia H/H 8.5/27. Trend CBC. Transfuse < 7.0. Stool occult #RLE edema Duplex US- shows rice's cyst #FEN No Standing fluid Monitor Electrolytes Jevity 1.5 DVT ppx: Lovenox-sq Med surg Visit type - Emergency Visit Emergency Visit: Yes ED Registration Date: 11/16/18 Care time: The patient presented to the Emergency Department on the above date and was hospitalized for further evaluation of their emergent condition. - New Patient This patient is new to me today: No - Critical Care Critical Care patient: No - Discharge Referral Referred to [facility] Med P.C.: No
[2018-11-19] MEDS: POLYETHYLENE GLYCOL 3350 119 GM BTL PEG SCH (22:32)
[2018-11-19] MEDS: SENNOSIDES 8.8 MG/5 ML BULK BOTTLE PEG SCH (22:33)
[2018-11-20] MEDS: PIPERACILLIN/TAZOB 3.375 GM 3.375 GM in DEXTROSE 5%-WATER - 50 ML IVPB SCH ×3 (01:25→16:58)
[2018-11-20] MEDS: ARTIFICIAL TEARS (POLYVINYL ALCOHOL) OPTH DROPS OU SCH ×3 (05:37→21:52)
[2018-11-20] MEDS: THIAMINE HCL 200 MG/2 ML VIAL IVPB SCH (05:37)
[2018-11-20 08:23] LABS: HEMATOCRIT 27.5 % (32.4-45.2); HEMOGLOBIN 8.9 GM/dL (10.7-15.3); MCH 27.7 pg (25.7-33.7); MCHC 32.4 g/dl (32.0-36.0); MEAN CELL VOLUME 85.5 fl (80-96); MEAN PLT VOLUME 8.3 fl (7.5-11.1); PLATELET COUNT 469 K/MM3 (134-434); RBC 3.21 M/mm3 (3.60-5.2); RDW 18.8 % (11.6-15.6); WHITE BLOOD COUNT 16.8 K/mm3 (4.0-10.0)
[2018-11-20 08:36] LABS: BLOOD UREA NITROGEN 18.2 mg/dL (7-18); CALCIUM 7.9 mg/dL (8.5-10.1); CREATININE 0.4 mg/dL (0.55-1.3); MAGNESIUM 2.3 mg/dL (1.8-2.4); PHOSPHOROUS 3.1 mg/dL (2.5-4.9); POTASSIUM 3.4 mmol/L (3.5-5.1)
[2018-11-20] MEDS ORDERED: DEXTROSE 5%-WATER - 50 ML IVPB ONE ×2 (10:09→16:46)
[2018-11-20] MEDS ORDERED: PIPERACILLIN/TAZOBACTAM 3.375 GM VIAL IVPB ONE ×2 (10:09→16:46)
[2018-11-20] MEDS: ASPIRIN 81 MG CHEWABLE TABLETS GT SCH (10:12)
[2018-11-20] MEDS: ENOXAPARIN NA (PORCINE) 40 MG/0.4 ML DISP.SYRIN SQ SCH (10:12)
[2018-11-20] MEDS: amLODIPine BESYLATE 10 MG TABLET (FP) GT SCH (10:12)
[2018-11-20] MEDS: MEMANTINE HCL 10 MG TABLET (FP) PO SCH ×2 (10:12→21:51)
[2018-11-20] MEDS: BACITRACIN 15 GM TUBE TOPICAL OINTMENT TP SCH (10:13)
[2018-11-20] MEDS: POLYETHYLENE GLYCOL 3350 119 GM BTL PEG SCH ×2 (10:13→21:53)
[2018-11-20] MEDS: AMINO ACIDS/PROTEIN HYDROLYS 30 ML LIQUID.PKT PO SCH ×2 (10:13→16:59)
[2018-11-20] MEDS ORDERED: GLYCERIN 1 RECTAL SUPPOSITORY, ADULT RC SCH (11:15)
--- NOTE | 2018-11-20 11:35 | PN ---
Teaching Attending Note Name of Resident: Rock White ATTENDING PHYSICIAN STATEMENT I saw and evaluated the patient. I reviewed the resident's note and discussed the case with the resident. I agree with the resident's findings and plan as documented. SUBJECTIVE: Patient is more alert today. She is comfortable lying in bed. She is non-verbal. OBJECTIVE: Vital Signs Period Temp Pulse Resp BP Sys/Torres Pulse Ox Last 24 Hr 98 F-100.3 F 88-107 20-22 122-157/62-68 98 HEART: S1S2, RRR LUNGS: Clear ABDOMEN: Soft, non-distended, normal BS, PEG in place EXTREMITIES: No edema Laboratory Results - last 24 hr 11/20/18 11/20/18 07:30 07:30 WBC 16.8 H RBC 3.21 L Hgb 8.9 L Hct 27.5 L MCV 85.5 MCH 27.7 MCHC 32.4 RDW 18.8 H Plt Count 469 H MPV 8.3 Sodium 143 Potassium 3.4 L Chloride 110 H Carbon Dioxide 25 Anion Gap 8 BUN 18.2 H Creatinine 0.4 L Est GFR (CKD-EPI)AfAm 116.44 Est GFR (CKD-EPI)NonAf 100.47 Random Glucose 130 H Calcium 7.9 L Phosphorus 3.1 Magnesium 2.3 Current Medications Generic Name Dose Route Start Last Admin Trade Name Freq PRN Reason Stop Dose Admin Amino Acids 30 ml 11/19/18 08:00 11/20/18 10:13 Prosource No Carb Liquid Pkt PO 30 ml BID@0800,1730 [facility] Administration Amlodipine Besylate 10 mg 11/17/18 10:00 11/20/18 10:12 Norvasc - GT 10 mg DAILY [facility] Administration Artificial Tears 1 drop 11/17/18 06:00 11/20/18 05:37 Artificial Tears OU 1 drop TID [facility] Administration Aspirin 81 mg 11/17/18 10:00 11/20/18 10:12 Asa - GT 81 mg DAILY [facility] Administration Bacitracin 1 applic 11/17/18 12:30 11/20/18 10:13 Bacitracin - TP 1 applic DAILY [facility] Administration Enoxaparin Sodium 40 mg 11/17/18 10:00 11/20/18 10:12 Lovenox - SQ 40 mg DAILY [facility] Administration Glycerin 1 each 11/20/18 11:15 11/20/18 11:27 Glycerin Suppository Adult - RC 1 each DAILY [facility] Administration Piperacillin Sod/Tazobactam 50 mls @ 100 mls/hr 11/18/18 02:00 11/20/18 10:12 Sod 3.375 gm/ Dextrose IVPB 100 mls/hr Q8H-IV [facility] Administration Protocol Levothyroxine Sodium 50 mcg 11/17/18 07:00 11/19/18 06:13 Synthroid - GT 50 mcg Q2D@0700 [facility] Administration Memantine 10 mg 11/18/18 22:00 11/20/18 10:12 Namenda - PO 10 mg BID [facility] Administration Polyethylene Glycol 17 gm 11/19/18 22:00 11/20/18 10:13 Miralax (For Daily Use) - PEG 17 gm BID [facility] Administration Senna 8.8 mg 11/19/18 22:00 11/19/18 22:33 Senna Oral Solution - PEG 8.8 mg HS [facility] Administration Thiamine HCl 250 mg 11/17/18 14:00 11/20/18 05:37 Vitamin B1 Injection - IVPB 11/20/18 13:59 250 mg TID NABIL Administration ASSESSMENT AND PLAN: This is a 78 year old woman with a history of Parkinson's, dementia, HTN, hyperlipidemia, anemia, hypothyroidism, decubitus ulcer, PEG who presented to the ED with bilateral arm tremors. 1. Sepsis secondary to E. faecalis UTI, possible pneumonia - Continue Zosyn 2. Parkinson's disease with dementia - Continue Namenda 3. Hepatic transaminitis - Improving - Continue to hold Lipitor - Check LFTs in AM 4. Rhabdomyolysis - Improving 5. HTN - Continue Norvasc 6. Hyperlipidemia - Lipitor held secondary to transaminitis 7. Hypothyroidism - Continue Synthroid 8. RLE Odell's cyst 9. Anemia - Likely secondary to sepsis - Hemoglobin is stable - continue to monitor 10. Stage III sacral pressure ulcer - Continue wound care 11. Constipation with fecal impaction - No significant improvement with Miralax, Senna - Glycerin suppository given today - may need disimpaction if no results
--- NOTE | 2018-11-20 11:38 | PN ---
Physical Exam: SUBJECTIVE: Patient seen and examined at bedside. No acute events overnight. More alert this am. OBJECTIVE: Vital Signs Period Temp Pulse Resp BP Sys/Torres Pulse Ox Last 24 Hr 98 F-100.3 F 88-107 20-22 122-157/62-68 98 GENERAL: Contracted, NAD HEAD: Normal with no signs of trauma. EYES: EOMI Sclera Clear LUNGS: Poor inspiratory effort. CTAB anteriorly HEART: RRR S1S2 ABDOMEN: PEG tube. Soft Nondistended EXTREMITIES: Contracted. SKIN: Sacral ulcer. Laboratory Results - last 24 hr 11/20/18 11/20/18 07:30 07:30 WBC 16.8 H RBC 3.21 L Hgb 8.9 L Hct 27.5 L MCV 85.5 MCH 27.7 MCHC 32.4 RDW 18.8 H Plt Count 469 H MPV 8.3 Sodium 143 Potassium 3.4 L Chloride 110 H Carbon Dioxide 25 Anion Gap 8 BUN 18.2 H Creatinine 0.4 L Est GFR (CKD-EPI)AfAm 116.44 Est GFR (CKD-EPI)NonAf 100.47 Random Glucose 130 H Calcium 7.9 L Phosphorus 3.1 Magnesium 2.3 Active Medications Generic Name Dose Route Start Last Admin Trade Name Freq PRN Reason Stop Dose Admin Amino Acids 30 ml 11/19/18 08:00 11/20/18 10:13 Prosource No Carb Liquid Pkt PO 30 ml BID@0800,1730 NABIL Administration Amlodipine Besylate 10 mg 11/17/18 10:00 11/20/18 10:12 Norvasc - GT 10 mg DAILY NABIL Administration Artificial Tears 1 drop 11/17/18 06:00 11/20/18 05:37 Artificial Tears OU 1 drop TID NABIL Administration Aspirin 81 mg 11/17/18 10:00 11/20/18 10:12 Asa - GT 81 mg DAILY NABIL Administration Bacitracin 1 applic 11/17/18 12:30 11/20/18 10:13 Bacitracin - TP 1 applic DAILY NABIL Administration Enoxaparin Sodium 40 mg 11/17/18 10:00 11/20/18 10:12 Lovenox - SQ 40 mg DAILY NABIL Administration Glycerin 1 each 11/20/18 11:15 11/20/18 11:27 Glycerin Suppository Adult - RC 1 each DAILY NABIL Administration Piperacillin Sod/Tazobactam 50 mls @ 100 mls/hr 11/18/18 02:00 11/20/18 10:12 Sod 3.375 gm/ Dextrose IVPB 100 mls/hr Q8H-IV NABIL Administration Protocol Levothyroxine Sodium 50 mcg 11/17/18 07:00 11/19/18 06:13 Synthroid - GT 50 mcg Q2D@0700 NABIL Administration Memantine 10 mg 11/18/18 22:00 11/20/18 10:12 Namenda - PO 10 mg BID NABIL Administration Polyethylene Glycol 17 gm 11/19/18 22:00 11/20/18 10:13 Miralax (For Daily Use) - PEG 17 gm BID NABIL Administration Senna 8.8 mg 11/19/18 22:00 11/19/18 22:33 Senna Oral Solution - PEG 8.8 mg HS NABIL Administration Thiamine HCl 250 mg 11/17/18 14:00 11/20/18 05:37 Vitamin B1 Injection - IVPB 11/20/18 13:59 250 mg TID NABIL Administration ASSESSMENT/PLAN: Pt is a 78 y/o F with PMHx of Parkinson's, Alzheimer's, HTN, HLD, hypothyroidism , seizure disorder, decubitus ulcer, s/p PEG tube placement, chronic arm tremors , brought from home by daughter, (pts primary transitional care liaison) for new b/l UE tremors, persistent (up to 10-15 continous) over 2-3 mins. #new b/l UE tremors Valproic acid subtherapeutic in ED Received 250mg Valproic acid in ED., added 500mg Dr Keene- on board----> Continue antibiotics, IV hydration and ID workup. Add thiamine 250 mg IVP q8H x [address] (C-). Adjust Rx for hypothyroidism. Observe off valproic acid as may increase LFTs (also antibiotics , i.e Zosyn) #AMS Per daughter, gradually increasing somnolence over past 2 weeks Could be in setting of worsening parkinson's/Alzheimers- cont mematine Neuro on board Dr Keene #Parkinson's/Alzheimer's Cont mementine #Leukocytosis WBC 17 on admission. WBC today 16.8, 11/20/2018 Empirically placed on Zosyn and Vancomycin. Continue to trend WBC. CT of abdomen and chest and pelvis---> Density posteriorly at the right base, possibly representing infiltrate or atelectasis. Small right pleural effusion. #Decubitus ulcer wound cx ----> Pseudomonas Aeruginosa, Ucx Group D Strep, or Enterococcus. Both sensitive to Zosyn. wound care on board #HTN Cont amlodipine 10mg #HLD Hold statins in setting of elevated transaminases #hypothyroidism TSH elevated 5.4 In setting of acute possible infectious process #seizure disorder Per neurology: Observe off valproic acid as may increase LFTs (also antibiotics , i.e Zosyn) #Anemia H/H 8.9/27.5 Trend CBC. Transfuse < 7.0. Stool occult #RLE edema Duplex US- shows irce's cyst #FEN No Standing fluid Monitor Electrolytes Jevity 1.5 DVT ppx: Lovenox-sq Med surg Visit type - Emergency Visit Emergency Visit: Yes ED Registration Date: 11/16/18 Care time: The patient presented to the Emergency Department on the above date and was hospitalized for further evaluation of their emergent condition. - New Patient This patient is new to me today: No - Critical Care Critical Care patient: No - Discharge Referral Referred to [facility] Med P.C.: No
[2018-11-20] MEDS: GLYCERIN 1 RECTAL SUPPOSITORY, ADULT RC SCH (17:00)
--- NOTE | 2018-11-20 17:06 | PN ---
Progress Note (short form) - Note Progress Note: patient seen around 1 pm today more alert leukocytosis improved ct scan with fecal impaction/stercoral proctitis, possible RLL infitrate/ atelectasis Vital Signs Period Temp Pulse Resp BP Sys/Torres Pulse Ox Last 24 Hr 98 F-100.3 F 88-107 20-22 122-157/62-68 98 cor-rrr lungs clear abd soft,nt +gt ext no edema CBC, BMP 11/20/18 07:30 11/20/18 07:30 Microbiology 11/16/18 21:50 Ulcer Gram Stain - Final 11/16/18 21:50 Ulcer Wound Culture - Final Pseudomonas Aeruginosa Escherichia Coli 11/16/18 15:53 Urine - Urine - Catheterized Urine Culture - Final Enterococcus Faecalis a/p leukocytosis persists- continue zosyn- possible pneumonia RLL fecal impaction /stercoral proctatitis- needs disimpaction-to be done by resident later today dementia small sacral ulcer- not infected Problem List - Problems (1) Leukocytosis Code(s): D72.829 - ELEVATED WHITE BLOOD CELL COUNT, UNSPECIFIED Qualifiers: Leukocytosis type: unspecified Qualified Code(s): D72.829 - Elevated white blood cell count, unspecified (2) LFT elevation Code(s): R94.5 - ABNORMAL RESULTS OF LIVER FUNCTION STUDIES
[2018-11-20] MEDS: SENNOSIDES 8.8 MG/5 ML BULK BOTTLE PEG SCH (21:51)
[2018-11-21] MEDS ORDERED: PIPERACILLIN/TAZOBACTAM 3.375 GM VIAL IVPB ONE ×3 (01:09→17:07)
[2018-11-21] MEDS ORDERED: DEXTROSE 5%-WATER - 50 ML IVPB ONE ×3 (01:09→17:07)
[2018-11-21] MEDS: PIPERACILLIN/TAZOB 3.375 GM 3.375 GM in DEXTROSE 5%-WATER - 50 ML IVPB SCH ×3 (01:24→18:28)
[2018-11-21] MEDS: LEVOTHYROXINE NA 50 MCG TABLET (FP) GT SCH (06:25)
[2018-11-21] MEDS: ARTIFICIAL TEARS (POLYVINYL ALCOHOL) OPTH DROPS OU SCH ×3 (06:26→22:43)
[2018-11-21 07:04] LABS: HEMATOCRIT 24.1 % (32.4-45.2); HEMOGLOBIN 7.7 GM/dL (10.7-15.3); MCH 27.6 pg (25.7-33.7); MCHC 31.8 g/dl (32.0-36.0); MEAN CELL VOLUME 86.7 fl (80-96); MEAN PLT VOLUME 8.1 fl (7.5-11.1); RBC 2.78 M/mm3 (3.60-5.2); RDW 18.5 % (11.6-15.6)
[2018-11-21 07:49] LABS: ALBUMIN 1.3 g/dl (3.4-5.0); BILIRUBIN,TOTAL 0.3 mg/dL (0.2-1); BLOOD UREA NITROGEN 21.8 mg/dL (7-18); CALCIUM 7.8 mg/dL (8.5-10.1); CREATININE 0.5 mg/dL (0.55-1.3); MAGNESIUM 2.5 mg/dL (1.8-2.4); PHOSPHOROUS 3.3 mg/dL (2.5-4.9); POTASSIUM 3.4 mmol/L (3.5-5.1); TOT PROT 5.9 g/dl (6.4-8.2)
[2018-11-21 07:57] LABS: PLATELET COUNT 440 K/MM3 (134-434)
[2018-11-21] MEDS ORDERED: BISACODYL 10 MG SUPP.RECT PR PRN (08:28)
[2018-11-21] MEDS ORDERED: KCL 10 MEQ IVPB 10 MEQ/100 ML INFUS.BAG IVPB SCH (09:00)
[2018-11-21] MEDS: amLODIPine BESYLATE 10 MG TABLET (FP) GT SCH (09:52)
[2018-11-21] MEDS: ENOXAPARIN NA (PORCINE) 40 MG/0.4 ML DISP.SYRIN SQ SCH (09:52)
[2018-11-21] MEDS: ASPIRIN 81 MG CHEWABLE TABLETS GT SCH (09:53)
[2018-11-21] MEDS: AMINO ACIDS/PROTEIN HYDROLYS 30 ML LIQUID.PKT PO SCH ×2 (09:53→18:28)
[2018-11-21] MEDS: MEMANTINE HCL 10 MG TABLET (FP) PO SCH ×2 (10:00→22:43)
[2018-11-21] MEDS: BACITRACIN 15 GM TUBE TOPICAL OINTMENT TP SCH (10:40)
[2018-11-21] MEDS: POLYETHYLENE GLYCOL 3350 119 GM BTL PEG SCH ×2 (10:40→22:44)
--- NOTE | 2018-11-21 12:14 | PN ---
Physical Exam: SUBJECTIVE: Patient seen and examined at bedside. Per RN, 2 Bowel movements overnight. Fever 101.4 overnight. OBJECTIVE: Vital Signs Period Temp Pulse Resp BP Sys/Torres Pulse Ox Last 24 Hr 98.3 F-101.4 F 86-94 20-20 128-147/60-80 98 GENERAL: Contracted, No acute distress. More alert this am. HEAD: Atraumatic/Normocephalic EYES: EOMI Sclera Clear LUNGS: Decreased breath sounds at bases HEART: RRR S1S2 ABDOMEN: PEG tube. No eythema or excoriation around PEG site. EXTREMITIES: Contracted. SKIN: Sacral ulcer. Laboratory Results - last 24 hr 11/20/18 11/21/18 11/21/18 16:30 06:20 06:20 WBC 15.0 H RBC 2.78 L Hgb 7.7 L Hct 24.1 L MCV 86.7 MCH 27.6 MCHC 31.8 L RDW 18.5 H Plt Count 440 H MPV 8.1 Sodium 145 Potassium 3.4 L Chloride 113 H Carbon Dioxide 28 Anion Gap 5 L BUN 21.8 H Creatinine 0.5 L Est GFR (CKD-EPI)AfAm 108.20 Est GFR (CKD-EPI)NonAf 93.36 Random Glucose 126 H Calcium 7.8 L Phosphorus 3.3 Magnesium 2.5 H Total Bilirubin 0.3 AST 88 H ALT 85 H Alkaline Phosphatase 127 H Total Protein 5.9 L Albumin 1.3 L Stool Occult Blood Negative Active Medications Generic Name Dose Route Start Last Admin Trade Name Freq PRN Reason Stop Dose Admin Amino Acids 30 ml 11/19/18 08:00 11/21/18 09:53 Prosource No Carb Liquid Pkt PO 30 ml BID@0800,1730 NABIL Administration Amlodipine Besylate 10 mg 11/17/18 10:00 11/21/18 09:52 Norvasc - GT 10 mg DAILY NABIL Administration Artificial Tears 1 drop 11/17/18 06:00 11/21/18 06:26 Artificial Tears OU 1 drop TID NABIL Administration Aspirin 81 mg 11/17/18 10:00 11/21/18 09:53 Asa - GT 81 mg DAILY NABIL Administration Bacitracin 1 applic 11/17/18 12:30 11/21/18 10:40 Bacitracin - TP 1 applic DAILY NABIL Administration Bisacodyl 10 mg 11/21/18 08:28 Dulcolax Suppository - [place] DAILY PRN CONSTIPATION Enoxaparin Sodium 40 mg 11/17/18 10:00 11/21/18 09:52 Lovenox - SQ 40 mg DAILY NABIL Administration Glycerin 1 each 11/20/18 17:00 11/20/18 17:00 Glycerin Suppository Adult - RC Not Given DAILY NABIL Piperacillin Sod/Tazobactam 50 mls @ 100 mls/hr 11/18/18 02:00 11/21/18 11:06 Sod 3.375 gm/ Dextrose IVPB 100 mls/hr Q8H-IV NABIL Administration Protocol Levothyroxine Sodium 50 mcg 11/17/18 07:00 11/21/18 06:25 Synthroid - GT 50 mcg Q2D@0700 NABIL Administration Memantine 10 mg 11/18/18 22:00 11/21/18 10:00 Namenda - PO 10 mg BID NABIL Administration Polyethylene Glycol 17 gm 11/19/18 22:00 11/21/18 10:40 Miralax (For Daily Use) - PEG 17 gm BID NABIL Administration Senna 8.8 mg 11/19/18 22:00 11/20/18 21:51 Senna Oral Solution - PEG 8.8 mg HS NABIL Administration ASSESSMENT/PLAN: Pt is a 78 y/o F with PMHx of Parkinson's, Alzheimer's, HTN, HLD, hypothyroidism , seizure disorder, decubitus ulcer, s/p PEG tube placement, chronic arm tremors , brought from home by daughter, (pts primary personal care service provider) for new b/l UE tremors, persistent (up to 10-15 continous) over 2-3 mins. #new b/l UE tremors Dr Keene- on board----> Continue antibiotics, IV hydration and ID workup. Add thiamine 250 mg IVP q8H x [address] (C-). Adjust Rx for hypothyroidism. Observe off valproic acid as may increase LFTs (also antibiotics , i.e Zosyn) #AMS Per daughter, gradually increasing somnolence over past 2 weeks Could be in setting of worsening parkinson's/Alzheimers- cont mematine Neuro on board Dr Keene #Parkinson's/Alzheimer's Cont Namenda #Leukocytosis WBC 17 on admission. WBC today 15 11/21/2018. WBC 16 yesterday. Will continue to trend and follow. Empirically placed on Zosyn. Continue to trend WBC. CT of abdomen and chest and pelvis---> Density posteriorly at the right base, possibly representing infiltrate or atelectasis. Small right pleural effusion. Marked obstipation and fecal impaction w/ Stercoral Proctitis. Manually disimpacted by writer producer yesterday afternoon. Copious amount of large well formed stool evacuated from rectum. #Decubitus ulcer wound cx ----> Pseudomonas Aeruginosa, Ucx Group D Strep, or Enterococcus. Both sensitive to Zosyn. wound care on board ID on board #HTN Cont amlodipine 10mg #HLD Hold statins in setting of elevated transaminases. AST/ALT trending downwards. #hypothyroidism TSH elevated 5.4 In setting of acute possible infectious process #seizure disorder Per neurology: Observe off valproic acid as may increase LFTs (also antibiotics , i.e Zosyn) #Anemia H/H 8.9/27.5 Trend CBC. Transfuse < 7.0. Stool occult NEGATIVE. #RLE edema Duplex US- shows rice's cyst #FEN No Standing fluid Monitor Electrolytes Jevity 1.5 DVT ppx: Lovenox-sq Med surg Visit type - Emergency Visit Emergency Visit: Yes ED Registration Date: 11/16/18 Care time: The patient presented to the Emergency Department on the above date and was hospitalized for further evaluation of their emergent condition. - New Patient This patient is new to me today: No - Critical Care Critical Care patient: No - Discharge Referral Referred to [facility] Med P.C.: No
--- NOTE | 2018-11-21 12:26 | PN ---
Progress Note (short form) - Note Progress Note: disimpacted yesterday fever this am Vital Signs Period Temp Pulse Resp BP Sys/Torres Pulse Ox Last 24 Hr 98.3 F-101.4 F 86-94 20-20 128-147/60-80 98 cor-rrr lungs decreased bs at bases abd soft,n+GT ext contracted CBC, BMP 11/21/18 06:20 11/21/18 06:20 Microbiology 11/16/18 21:50 Ulcer Gram Stain - Final 11/16/18 21:50 Ulcer Wound Culture - Final Pseudomonas Aeruginosa Escherichia Coli 11/16/18 15:53 Urine - Urine - Catheterized Urine Culture - Final Enterococcus Faecalis a/p fever- agree with blood cultures repeat ua and urine culture continue zosyn- possible pneumonia RLL fecal impaction /stercoral proctatitis- s/p disimpaction dementia small sacral ulcer- not infected Problem List - Problems (1) Leukocytosis Code(s): D72.829 - ELEVATED WHITE BLOOD CELL COUNT, UNSPECIFIED Qualifiers: Leukocytosis type: unspecified Qualified Code(s): D72.829 - Elevated white blood cell count, unspecified (2) LFT elevation Code(s): R94.5 - ABNORMAL RESULTS OF LIVER FUNCTION STUDIES
--- NOTE | 2018-11-21 15:00 | PN ---
Teaching Attending Note Name of Resident: Rock White ATTENDING PHYSICIAN STATEMENT I saw and evaluated the patient. I reviewed the resident's note and discussed the case with the resident. I agree with the resident's findings and plan as documented. SUBJECTIVE: Seen and examined at bedside, spiked temp 101.4 overnight. Disimpacted yesterday OBJECTIVE: Vital Signs - 24 hr 11/20/18 11/20/18 11/21/18 21:00 21:55 02:00 Temperature 98.3 F 101.4 F H Pulse Rate 94 H Respiratory 20 20 Rate Blood Pressure 147/80 O2 Sat by Pulse 98 Oximetry (%) 11/21/18 06:00 Temperature 99.8 F H Pulse Rate 86 Respiratory 20 Rate Blood Pressure 128/60 O2 Sat by Pulse Oximetry (%) General: NAD, laying in bed comfortably CVS: s1s2, RRR Lungs: clear anteriorly, decreased at bases, unlabored Abd: soft nt nd, nabs, +PEG c/d/i Ext: contracted Laboratory Results - last 24 hr 11/20/18 11/21/18 11/21/18 16:30 06:20 06:20 WBC 15.0 H RBC 2.78 L Hgb 7.7 L Hct 24.1 L MCV 86.7 MCH 27.6 MCHC 31.8 L RDW 18.5 H Plt Count 440 H MPV 8.1 Sodium 145 Potassium 3.4 L Chloride 113 H Carbon Dioxide 28 Anion Gap 5 L BUN 21.8 H Creatinine 0.5 L Est GFR (CKD-EPI)AfAm 108.20 Est GFR (CKD-EPI)NonAf 93.36 Random Glucose 126 H Calcium 7.8 L Phosphorus 3.3 Magnesium 2.5 H Total Bilirubin 0.3 AST 88 H ALT 85 H Alkaline Phosphatase 127 H Total Protein 5.9 L Albumin 1.3 L Stool Occult Blood Negative Microbiology 11/16/18 21:50 Gram Stain - Final Ulcer Wound Culture - Final Pseudomonas Aeruginosa Escherichia Coli Current Medications Generic Name Dose Route Start Last Admin Trade Name Freq PRN Reason Stop Dose Admin Amino Acids 30 ml 11/19/18 08:00 11/21/18 09:53 Prosource No Carb Liquid Pkt PO 30 ml BID@0800,1730 NABIL Administration Amlodipine Besylate 10 mg 11/17/18 10:00 11/21/18 09:52 Norvasc - GT 10 mg DAILY NABIL Administration Artificial Tears 1 drop 11/17/18 06:00 11/21/18 06:26 Artificial Tears OU 1 drop TID NABIL Administration Aspirin 81 mg 11/17/18 10:00 11/21/18 09:53 Asa - GT 81 mg DAILY NABIL Administration Bacitracin 1 applic 11/17/18 12:30 11/21/18 10:40 Bacitracin - TP 1 applic DAILY NABIL Administration Bisacodyl 10 mg 11/21/18 08:28 Dulcolax Suppository - [place] DAILY PRN CONSTIPATION Enoxaparin Sodium 40 mg 11/17/18 10:00 11/21/18 09:52 Lovenox - SQ 40 mg DAILY NABIL Administration Glycerin 1 each 11/20/18 17:00 11/20/18 17:00 Glycerin Suppository Adult - RC Not Given DAILY NABIL Piperacillin Sod/Tazobactam 50 mls @ 100 mls/hr 11/18/18 02:00 11/21/18 11:06 Sod 3.375 gm/ Dextrose IVPB 100 mls/hr Q8H-IV NABIL Administration Protocol Levothyroxine Sodium 50 mcg 11/17/18 07:00 11/21/18 06:25 Synthroid - GT 50 mcg Q2D@0700 NABIL Administration Memantine 10 mg 11/18/18 22:00 11/21/18 10:00 Namenda - PO 10 mg BID NABIL Administration Polyethylene Glycol 17 gm 11/19/18 22:00 11/21/18 10:40 Miralax (For Daily Use) - PEG 17 gm BID NABIL Administration Senna 8.8 mg 11/19/18 22:00 11/20/18 21:51 Senna Oral Solution - PEG 8.8 mg HS NABIL Administration ASSESSMENT AND PLAN: 78 year old woman with a history of Parkinson's, dementia, HTN, hyperlipidemia, anemia, hypothyroidism, decubitus ulcer, PEG who presented to the ED with bilateral arm tremors. AMS/Sepsis-mulitfactorial etiology, possible RLL pneumonia, enterococcus UTI, infected sacral decub -spiked temp while on zosyn -check blood cx, urine, and CXR -c/w zosyn for now -ID following -wound care Transaminitis -resolving -holding valproic acid Anemia -likely exacerbated by acute illness -monitor counts Parkinson's with Dementia with worsening tremors -thiamine was added -on memantine -dr. monge following HTN HLD Hypothyroid Constipation s/p disimpaction yesterday -continue with current care
[2018-11-21] MEDS: GLYCERIN 1 RECTAL SUPPOSITORY, ADULT RC SCH (15:06)
[2018-11-21 16:19] LABS: BASO % 0.7 % (0-2.0); EOS % 1.1 % (0-4.5); HEMATOCRIT 25.8 % (32.4-45.2); HEMOGLOBIN 8.2 GM/dL (10.7-15.3); LYMPH % 9.1 % (8-40); MCH 27.6 pg (25.7-33.7); MCHC 31.9 g/dl (32.0-36.0); MEAN CELL VOLUME 86.6 fl (80-96); MEAN PLT VOLUME 8.2 fl (7.5-11.1); MONO % 6.2 % (3.8-10.2); NEUT % 82.9 % (42.8-82.8); PLATELET COUNT 473 K/MM3 (134-434); RBC 2.98 M/mm3 (3.60-5.2); WHITE BLOOD COUNT 16.1 K/mm3 (4.0-10.0)
[2018-11-21] MEDS ORDERED: PT OWN MED DRAWER 7, Y5N ONE (21:40)
[2018-11-21] MEDS ORDERED: INSULIN (NOVOLOG) ASPART 100 UNITS/ML 10ML VIAL ONE (21:47)
[2018-11-21] MEDS: SENNOSIDES 8.8 MG/5 ML BULK BOTTLE PEG SCH (22:43)
[2018-11-22] MEDS ORDERED: PIPERACILLIN/TAZOBACTAM 3.375 GM VIAL IVPB ONE ×3 (02:32→16:13)
[2018-11-22] MEDS ORDERED: DEXTROSE 5%-WATER - 50 ML IVPB ONE ×3 (02:32→16:13)
[2018-11-22] MEDS: PIPERACILLIN/TAZOB 3.375 GM 3.375 GM in DEXTROSE 5%-WATER - 50 ML IVPB SCH ×3 (02:39→17:10)
[2018-11-22] MEDS: ARTIFICIAL TEARS (POLYVINYL ALCOHOL) OPTH DROPS OU SCH ×3 (06:24→22:01)
[2018-11-22 07:41] LABS: HEMATOCRIT 25.5 % (32.4-45.2); MCH 27.2 pg (25.7-33.7); MCHC 31.6 g/dl (32.0-36.0); MEAN PLT VOLUME 8.3 fl (7.5-11.1); RBC 2.96 M/mm3 (3.60-5.2); RDW 18.2 % (11.6-15.6); WHITE BLOOD COUNT 16.6 K/mm3 (4.0-10.0)
[2018-11-22 07:59] LABS: ALBUMIN 1.4 g/dl (3.4-5.0); BILIRUBIN,TOTAL 0.2 mg/dL (0.2-1); CREATININE 0.5 mg/dL (0.55-1.3); MAGNESIUM 2.5 mg/dL (1.8-2.4); PHOSPHOROUS 3.3 mg/dL (2.5-4.9); POTASSIUM 3.5 mmol/L (3.5-5.1)
[2018-11-22 09:20] LABS: PLATELET COUNT 469 K/MM3 (134-434)
[2018-11-22] MEDS ORDERED: PT OWN MED DRAWER 7, Y5N ONE ×2 (09:39→21:37)
[2018-11-22] MEDS: ASPIRIN 81 MG CHEWABLE TABLETS GT SCH (09:54)
[2018-11-22] MEDS: ENOXAPARIN NA (PORCINE) 40 MG/0.4 ML DISP.SYRIN SQ SCH (09:54)
[2018-11-22] MEDS: AMINO ACIDS/PROTEIN HYDROLYS 30 ML LIQUID.PKT PO SCH ×2 (09:54→16:50)
[2018-11-22] MEDS: MEMANTINE HCL 10 MG TABLET (FP) PO SCH ×2 (09:55→22:02)
[2018-11-22] MEDS: POLYETHYLENE GLYCOL 3350 119 GM BTL PEG SCH ×2 (09:55→22:07)
[2018-11-22] MEDS: amLODIPine BESYLATE 10 MG TABLET (FP) GT SCH (09:55)
[2018-11-22] MEDS: BACITRACIN 15 GM TUBE TOPICAL OINTMENT TP SCH ×2 (09:55→20:00)
[2018-11-22] MEDS: GLYCERIN 1 RECTAL SUPPOSITORY, ADULT RC SCH (10:00)
--- NOTE | 2018-11-22 11:04 | PN ---
Physical Exam: SUBJECTIVE: Patient seen and examined at bedside. No acute events overnight. Daughter at bedside. OBJECTIVE: Vital Signs Period Temp Pulse Resp BP Sys/Torres Pulse Ox Last 24 Hr 98.3 F-99.7 F 78-87 14-20 137-144/50-74 98-100 GENERAL: Contracted, NAD HEAD: Atraumatic/Normocephalic EYES: EOMI Sclera Clear LUNGS: Decreased breath sounds at bases HEART: RRR S1S2 ABDOMEN: PEG tube intact. soft NDNT. EXTREMITIES: Contracted. SKIN: Sacral ulcer. Examined again today w/ team. Stage 1, nonoozing. Non odorus. Laboratory Results - last 24 hr 11/21/18 11/22/18 11/22/18 14:45 06:20 06:20 WBC 16.1 H 16.6 H RBC 2.98 L 2.96 L Hgb 8.2 L 8.0 L Hct 25.8 L 25.5 L MCV 86.6 86.0 MCH 27.6 27.2 MCHC 31.9 L 31.6 L RDW 19.0 H 18.2 H Plt Count 473 H 469 H MPV 8.2 8.3 Absolute Neuts (auto) 13.3 H Neutrophils % 82.9 H Lymphocytes % 9.1 D Monocytes % 6.2 Eosinophils % 1.1 D Basophils % 0.7 D Nucleated RBC % 0 Sodium 145 Potassium 3.5 Chloride 110 H Carbon Dioxide 28 Anion Gap 7 L BUN 31.0 H Creatinine 0.5 L Est GFR (CKD-EPI)AfAm 108.20 Est GFR (CKD-EPI)NonAf 93.36 Random Glucose 114 H Calcium 8.0 L Phosphorus 3.3 Magnesium 2.5 H Total Bilirubin 0.2 AST 89 H ALT 92 H Alkaline Phosphatase 129 H Total Protein 6.0 L Albumin 1.4 L Active Medications Generic Name Dose Route Start Last Admin Trade Name Freq PRN Reason Stop Dose Admin Amino Acids 30 ml 11/19/18 08:00 11/22/18 09:54 Prosource No Carb Liquid Pkt PO 30 ml BID@0800,1730 NABIL Administration Amlodipine Besylate 10 mg 11/17/18 10:00 11/22/18 09:55 Norvasc - GT 10 mg DAILY NABIL Administration Artificial Tears 1 drop 11/17/18 06:00 11/22/18 06:24 Artificial Tears OU 1 drop TID NABIL Administration Aspirin 81 mg 11/17/18 10:00 11/22/18 09:54 Asa - GT 81 mg DAILY NABIL Administration Bacitracin 1 applic 11/17/18 12:30 11/22/18 09:55 Bacitracin - TP 1 applic DAILY NABIL Administration Bisacodyl 10 mg 11/21/18 08:28 Dulcolax Suppository - [place] DAILY PRN CONSTIPATION Enoxaparin Sodium 40 mg 11/17/18 10:00 11/22/18 09:54 Lovenox - SQ 40 mg DAILY NABIL Administration Glycerin 1 each 11/20/18 17:00 11/21/18 15:06 Glycerin Suppository Adult - RC Not Given DAILY NABIL Piperacillin Sod/Tazobactam 50 mls @ 100 mls/hr 11/18/18 02:00 11/22/18 09:54 Sod 3.375 gm/ Dextrose IVPB 100 mls/hr Q8H-IV NABIL Administration Protocol Levothyroxine Sodium 50 mcg 11/17/18 07:00 11/21/18 06:25 Synthroid - GT 50 mcg Q2D@0700 NABIL Administration Memantine 10 mg 11/18/18 22:00 11/22/18 09:55 Namenda - PO 10 mg BID NABIL Administration Polyethylene Glycol 17 gm 11/19/18 22:00 11/22/18 09:55 Miralax (For Daily Use) - PEG 17 gm BID NABIL Administration Senna 8.8 mg 11/19/18 22:00 11/21/18 22:43 Senna Oral Solution - PEG 8.8 mg HS NABIL Administration ASSESSMENT/PLAN: Pt is a 78 y/o F with PMHx of Parkinson's, Alzheimer's, HTN, HLD, hypothyroidism , seizure disorder, decubitus ulcer, s/p PEG tube placement, chronic arm tremors , brought from home by daughter, (pts primary primary care nurse practitioner) for new b/l UE tremors, persistent (up to 10-15 continuous) over 2-3 mins. #new b/l UE tremors Dr Keene- on board----> Continue antibiotics, IV hydration and ID workup. Head CT (C-). Observe off valproic acid as may increase LFTs (also antibiotics, i.e Zosyn) #AMS Per daughter, gradually increasing somnolence over past 2 weeks Could be in setting of worsening parkinson's/Alzheimers- cont memdane Neuro on board Dr Keene #Parkinson's/Alzheimer's Cont Namenda #Leukocytosis WBC 17 on admission. WBC today 16.5 11/22/2018. WBC 16.1 yesterday. Will continue to trend and follow. Empirically placed on Zosyn. Continue to trend WBC. CT of abdomen and chest and pelvis---> Density posteriorly at the right base, possibly representing infiltrate or atelectasis. Small right pleural effusion. Marked obstipation and fecal impaction w/ Stercoral Proctitis. Manually disimpacted by speech writer 11/20. Copious amount of large well formed stool evacuated from rectum. #Decubitus ulcer wound cx ----> Pseudomonas Aeruginosa, Ucx Group D Strep, or Enterococcus. Both sensitive to Zosyn. Blood cultures pending wound care on board ID on board #HTN Cont amlodipine 10mg #HLD Hold statins in setting of elevated transaminases. AST/ALT trending downwards. #hypothyroidism TSH elevated 5.4 In setting of acute possible infectious process #seizure disorder Per neurology: Observe off valproic acid as may increase LFTs (also antibiotics , i.e Zosyn) #Anemia H/H 8.0/25.5 Trend CBC. Transfuse < 7.0. Stool occult NEGATIVE. #RLE edema Duplex US- shows rice's cyst #FEN No Standing fluid Monitor Electrolytes Jevity 1.5 DVT ppx: Lovenox-sq Med surg Visit type - Emergency Visit Emergency Visit: Yes ED Registration Date: 11/16/18 Care time: The patient presented to the Emergency Department on the above date and was hospitalized for further evaluation of their emergent condition. - New Patient This patient is new to me today: No - Critical Care Critical Care patient: No - Discharge Referral Referred to [facility] Med P.C.: No
--- NOTE | 2018-11-22 11:33 | PN ---
Progress Note (short form) - Note Progress Note: afebrile today NAD Vital Signs Period Temp Pulse Resp BP Sys/Torres Pulse Ox Last 24 Hr 98.3 F-99.7 F 78-87 14-20 137-144/50-74 98-100 cor-rrr lungs decreased bs at bases abd soft,nt+GT ext contracted CBC, BMP 11/22/18 06:20 11/22/18 06:20 Microbiology 11/16/18 21:50 Ulcer Gram Stain - Final 11/16/18 21:50 Ulcer Wound Culture - Final Pseudomonas Aeruginosa Escherichia Coli 11/16/18 15:53 Urine - Urine - Catheterized Urine Culture - Final Enterococcus Faecalis a/p fever- agree with blood cultures repeat ua and urine culture today-straight cath if possible continue zosyn- possible pneumonia RLL fecal impaction- s/p disimpaction-now having bowel movements dementia small sacral ulcer- local care Problem List - Problems (1) Leukocytosis Code(s): D72.829 - ELEVATED WHITE BLOOD CELL COUNT, UNSPECIFIED Qualifiers: Leukocytosis type: unspecified Qualified Code(s): D72.829 - Elevated white blood cell count, unspecified (2) LFT elevation Code(s): R94.5 - ABNORMAL RESULTS OF LIVER FUNCTION STUDIES
--- NOTE | 2018-11-22 11:54 | PN ---
Teaching Attending Note Name of Resident: Rock White ATTENDING PHYSICIAN STATEMENT I saw and evaluated the patient. I reviewed the resident's note and discussed the case with the resident. I agree with the resident's findings and plan as documented. SUBJECTIVE: Patient is awake, alert, and non-verbal. She appears comfortable. OBJECTIVE: Vital Signs Period Temp Pulse Resp BP Sys/Torres Pulse Ox Last 24 Hr 98.3 F-99.7 F 78-87 14-20 137-144/50-74 98-100 HEART: S1S2, RRR LUNGS: Clear ABDOMEN: Soft, non-distended, normal BS, G-tube site clean EXTREMITIES: No edema SKIN: 2cm clean ulcer overlying sacrum Laboratory Results - last 24 hr 11/21/18 11/22/18 11/22/18 14:45 06:20 06:20 WBC 16.1 H 16.6 H RBC 2.98 L 2.96 L Hgb 8.2 L 8.0 L Hct 25.8 L 25.5 L MCV 86.6 86.0 MCH 27.6 27.2 MCHC 31.9 L 31.6 L RDW 19.0 H 18.2 H Plt Count 473 H 469 H MPV 8.2 8.3 Absolute Neuts (auto) 13.3 H Neutrophils % 82.9 H Lymphocytes % 9.1 D Monocytes % 6.2 Eosinophils % 1.1 D Basophils % 0.7 D Nucleated RBC % 0 Sodium 145 Potassium 3.5 Chloride 110 H Carbon Dioxide 28 Anion Gap 7 L BUN 31.0 H Creatinine 0.5 L Est GFR (CKD-EPI)AfAm 108.20 Est GFR (CKD-EPI)NonAf 93.36 Random Glucose 114 H Calcium 8.0 L Phosphorus 3.3 Magnesium 2.5 H Total Bilirubin 0.2 AST 89 H ALT 92 H Alkaline Phosphatase 129 H Total Protein 6.0 L Albumin 1.4 L Current Medications Generic Name Dose Route Start Last Admin Trade Name Freq PRN Reason Stop Dose Admin Amino Acids 30 ml 11/19/18 08:00 11/22/18 09:54 Prosource No Carb Liquid Pkt PO 30 ml BID@0800,1730 NABIL Administration Amlodipine Besylate 10 mg 11/17/18 10:00 11/22/18 09:55 Norvasc - GT 10 mg DAILY NABIL Administration Artificial Tears 1 drop 11/17/18 06:00 11/22/18 06:24 Artificial Tears OU 1 drop TID NABIL Administration Aspirin 81 mg 11/17/18 10:00 11/22/18 09:54 Asa - GT 81 mg DAILY NABIL Administration Bacitracin 1 applic 11/17/18 12:30 11/22/18 09:55 Bacitracin - TP 1 applic DAILY NABIL Administration Bisacodyl 10 mg 11/21/18 08:28 Dulcolax Suppository - [place] DAILY PRN CONSTIPATION Enoxaparin Sodium 40 mg 11/17/18 10:00 11/22/18 09:54 Lovenox - SQ 40 mg DAILY NABIL Administration Glycerin 1 each 11/20/18 17:00 11/21/18 15:06 Glycerin Suppository Adult - RC Not Given DAILY NABIL Piperacillin Sod/Tazobactam 50 mls @ 100 mls/hr 11/18/18 02:00 11/22/18 09:54 Sod 3.375 gm/ Dextrose IVPB 100 mls/hr Q8H-IV NABIL Administration Protocol Levothyroxine Sodium 50 mcg 11/17/18 07:00 11/21/18 06:25 Synthroid - GT 50 mcg Q2D@0700 NABIL Administration Memantine 10 mg 11/18/18 22:00 11/22/18 09:55 Namenda - PO 10 mg BID NABIL Administration Polyethylene Glycol 17 gm 11/19/18 22:00 11/22/18 09:55 Miralax (For Daily Use) - PEG 17 gm BID NABIL Administration Senna 8.8 mg 11/19/18 22:00 11/21/18 22:43 Senna Oral Solution - PEG 8.8 mg HS NABIL Administration ASSESSMENT AND PLAN: This is a 78 year old woman with a history of Parkinson's, dementia, HTN, hyperlipidemia, anemia, hypothyroidism, decubitus ulcer, PEG who presented to the ED with bilateral arm tremors. 1. Sepsis secondary to E. faecalis UTI, possible pneumonia - Had temp 101.4 11/21 AM - blood cultures, urinalysis, urine culture pending - WBC remains elevated - Continue Zosyn 2. Parkinson's disease with dementia - Continue Namenda 3. Hepatic transaminitis - Stable - Lipitor held - Continue to monitor LFTs 4. Rhabdomyolysis - Improved 5. HTN - Continue Norvasc 6. Hyperlipidemia - Lipitor held secondary to transaminitis 7. Hypothyroidism - Continue Synthroid 8. RLE Odell's cyst 9. Anemia - Likely secondary to sepsis, chronic illness - Continue to monitor hemoglobin 10. Stage III sacral pressure ulcer - Continue wound care 11. Constipation with fecal impaction - s/p disimpaction 11/20 - Continue Senna, Miralax 12. Nutrition - Continue Jevity 1.5 PEG feeds - Continue ProSource
[2018-11-22 18:57] LABS: EPI CELLS 2.4 /HPF (0-5/HPF); HYALINE CASTS 4 /lpf (0-8); URINE APPEARANCE CLEAR; URINE BACTERIA 0.3 /hpf (NEGATIVE); URINE BILIRUBIN NEGATIVE (NEGATIVE); URINE COLOR YELLOW; URINE GLUCOSE (UA) NEGATIVE (NEGATIVE); URINE KETONE NEGATIVE (NEGATIVE); URINE LEUK ESTERASE TRACE (NEGATIVE); URINE NITRITE NEGATIVE (NEGATIVE); URINE PROTEIN NEGATIVE (NEGATIVE); URINE RBC 2 /hpf (0-4); URINE WBC 3 /hpf (0-5)
--- NOTE | 2018-11-22 18:59 | HOSP ---
Subjective - Review of Symptoms Events since last encounter: Notified by RN that pt's I.V come out. Site inspected and examined. Slight erythema around previous I.V site. Bacitracin ordered. Warm compresses. Incident report filled. Physical Examination Vital Signs: Vital Signs Temperature 98.4 F 11/22/18 15:00 Pulse Rate 83 11/22/18 15:00 Respiratory Rate 16 11/22/18 15:00 Blood Pressure 132/62 11/22/18 15:00 O2 Sat by Pulse Oximetry (%) 98 11/22/18 09:00 Labs: CBC, BMP 11/22/18 06:20 11/22/18 06:20 Visit type - Emergency Visit Emergency Visit: No - New Patient This patient is new to me today: No - Critical Care Critical Care patient: No
[2018-11-22] MEDS: SENNOSIDES 8.8 MG/5 ML BULK BOTTLE PEG SCH (22:07)
[2018-11-23] MEDS ORDERED: DEXTROSE 5%-WATER - 50 ML IVPB ONE ×3 (01:35→16:22)
[2018-11-23] MEDS ORDERED: PIPERACILLIN/TAZOBACTAM 3.375 GM VIAL IVPB ONE ×3 (01:35→16:22)
[2018-11-23] MEDS: PIPERACILLIN/TAZOB 3.375 GM 3.375 GM in DEXTROSE 5%-WATER - 50 ML IVPB SCH ×3 (01:55→17:14)
[2018-11-23] MEDS: LEVOTHYROXINE NA 50 MCG TABLET (FP) GT SCH (06:23)
[2018-11-23] MEDS: ARTIFICIAL TEARS (POLYVINYL ALCOHOL) OPTH DROPS OU SCH ×3 (06:23→21:55)
[2018-11-23 07:37] LABS: HEMOGLOBIN 7.6 GM/dL (10.7-15.3); MCH 27.4 pg (25.7-33.7); MCHC 31.7 g/dl (32.0-36.0); MEAN CELL VOLUME 86.6 fl (80-96); RBC 2.77 M/mm3 (3.60-5.2); WHITE BLOOD COUNT 13.4 K/mm3 (4.0-10.0)
[2018-11-23 08:09] LABS: ALBUMIN 1.4 g/dl (3.4-5.0); BILIRUBIN,TOTAL 0.4 mg/dL (0.2-1); BLOOD UREA NITROGEN 43.8 mg/dL (7-18); CALCIUM 7.9 mg/dL (8.5-10.1); CREATININE 0.7 mg/dL (0.55-1.3); MAGNESIUM 2.8 mg/dL (1.8-2.4); PHOSPHOROUS 4.3 mg/dL (2.5-4.9); POTASSIUM 3.4 mmol/L (3.5-5.1)
[2018-11-23] MEDS ORDERED: PT OWN MED DRAWER 7, Y5N ONE ×2 (08:41→19:45)
[2018-11-23] MEDS: AMINO ACIDS/PROTEIN HYDROLYS 30 ML LIQUID.PKT PO SCH ×2 (08:44→16:36)
[2018-11-23 08:47] LABS: PLATELET COUNT 479 K/MM3 (134-434)
[2018-11-23] MEDS: MEMANTINE HCL 10 MG TABLET (FP) PO SCH ×2 (08:59→21:53)
[2018-11-23] MEDS: ASPIRIN 81 MG CHEWABLE TABLETS GT SCH (08:59)
[2018-11-23] MEDS: amLODIPine BESYLATE 10 MG TABLET (FP) GT SCH (08:59)
[2018-11-23] MEDS: POLYETHYLENE GLYCOL 3350 119 GM BTL PEG SCH ×2 (08:59→21:53)
[2018-11-23] MEDS: BACITRACIN 15 GM TUBE TOPICAL OINTMENT TP SCH ×2 (09:00)
[2018-11-23] MEDS: ENOXAPARIN NA (PORCINE) 40 MG/0.4 ML DISP.SYRIN SQ SCH (09:00)
[2018-11-23] MEDS: GLYCERIN 1 RECTAL SUPPOSITORY, ADULT RC SCH (10:00)
--- NOTE | 2018-11-23 11:13 | PN ---
Progress Note (short form) - Note Progress Note: afebrile today daughter at bedside I spoke with her yesterday as well NAD Vital Signs Period Temp Pulse Resp BP Sys/Torres Pulse Ox Last 24 Hr 98.2 F-99.3 F 75-83 15-18 122-143/50-80 cor-rrr lungs clear abd soft,nt +GT ext trace pedal edema sacral ulcer clean stage 2 CBC, BMP 11/23/18 06:23 11/23/18 06:23 UA is negative Microbiology 11/22/18 18:50 Urine For Antigen Detection Legionella Antigen - Final 11/22/18 18:50 Urine For Antigen Detection Streptococcus pneumoniae Antigen (M - Final 11/21/18 15:00 Blood - Peripheral Venous Blood Culture - Preliminary NO GROWTH OBTAINED AFTER 24 HOURS, INCUBATION TO CONTINUE FOR 4 DAYS. 11/21/18 15:00 Blood - Peripheral Venous Blood Culture - Preliminary NO GROWTH OBTAINED AFTER 24 HOURS, INCUBATION TO CONTINUE FOR 4 DAYS. 11/16/18 21:50 Ulcer Gram Stain - Final 11/16/18 21:50 Ulcer Wound Culture - Final Pseudomonas Aeruginosa Escherichia Coli 11/16/18 15:53 Urine - Urine - Catheterized Urine Culture - Final Enterococcus Faecalis a/p fevers resolved cultures of blood negative ua is negative day #7 zosyn- can d/c in am fecal impaction- s/p disimpaction-now having bowel movements dementia small sacral ulcer- local care d/w daughter at length at the bedside today Problem List - Problems (1) Leukocytosis Code(s): D72.829 - ELEVATED WHITE BLOOD CELL COUNT, UNSPECIFIED Qualifiers: Leukocytosis type: unspecified Qualified Code(s): D72.829 - Elevated white blood cell count, unspecified (2) LFT elevation Code(s): R94.5 - ABNORMAL RESULTS OF LIVER FUNCTION STUDIES
--- NOTE | 2018-11-23 12:01 | PN ---
Physical Exam: SUBJECTIVE: Patient seen and examined. She is alert and appears comfortable. OBJECTIVE: Vital Signs Period Temp Pulse Resp BP Sys/Torres Pulse Ox Last 24 Hr 98.2 F-99.3 F 75-83 15-18 122-143/50-80 GENERAL: The patient is awake, alert, and in no acute distress. LUNGS: Breath sounds equal with poor inspiratory effort, clear to auscultation bilaterally, no wheezes, no crackles, no accessory muscle use. HEART: Regular rate and rhythm, S1, S2 without murmur, rub or gallop. ABDOMEN: Soft, nondistended, normoactive bowel sounds, no guarding, no rebound, no hepatosplenomegaly, no masses. G-tube site clean. EXTREMITIES: 2+ pulses, warm, well-perfused, trace edema. SKIN: 2 cm ulcer overlying sacrum with no drainage. Laboratory Results - last 24 hr 11/22/18 11/22/18 11/23/18 16:21 18:50 06:23 WBC 13.4 H RBC 2.77 L Hgb 7.6 L Hct 24.0 L MCV 86.6 MCH 27.4 MCHC 31.7 L RDW 19.0 H Plt Count 479 H MPV 8.0 Sodium Potassium Chloride Carbon Dioxide Anion Gap BUN Creatinine Est GFR (CKD-EPI)AfAm Est GFR (CKD-EPI)NonAf POC Glucometer 133 Random Glucose Calcium Phosphorus Magnesium Total Bilirubin AST ALT Alkaline Phosphatase Total Protein Albumin Urine Color Yellow Urine Appearance Clear Urine pH 5.0 Ur Specific [place] 1.019 Urine Protein Negative Urine Glucose (UA) Negative Urine Ketones Negative Urine Blood 1+ H Urine Nitrite Negative Urine Bilirubin Negative Urine Urobilinogen 1.0 Ur Leukocyte Esterase Trace Urine WBC (Auto) 3 Urine RBC (Auto) 2 Urine Casts (Auto) 4 U Epithel Cells (Auto) 2.4 Urine Bacteria (Auto) 0.3 11/23/18 06:23 WBC RBC Hgb Hct MCV MCH MCHC RDW Plt Count MPV Sodium 145 Potassium 3.4 L Chloride 110 H Carbon Dioxide 29 Anion Gap 6 L BUN 43.8 H Creatinine 0.7 Est GFR (CKD-EPI)AfAm 96.86 Est GFR (CKD-EPI)NonAf 83.57 POC Glucometer Random Glucose 107 H Calcium 7.9 L Phosphorus 4.3 Magnesium 2.8 H Total Bilirubin 0.4 AST 69 H ALT 82 H Alkaline Phosphatase 128 H Total Protein 6.0 L Albumin 1.4 L Urine Color Urine Appearance Urine pH Ur Specific [place] Urine Protein Urine Glucose (UA) Urine Ketones Urine Blood Urine Nitrite Urine Bilirubin Urine Urobilinogen Ur Leukocyte Esterase Urine WBC (Auto) Urine RBC (Auto) Urine Casts (Auto) U Epithel Cells (Auto) Urine Bacteria (Auto) Active Medications Generic Name Dose Route Start Last Admin Trade Name Freq PRN Reason Stop Dose Admin Amino Acids 30 ml 11/19/18 08:00 11/23/18 08:44 Prosource No Carb Liquid Pkt PO 30 ml BID@0800,1730 NABIL Administration Amlodipine Besylate 10 mg 11/17/18 10:00 11/23/18 08:59 Norvasc - GT 10 mg DAILY NABIL Administration Artificial Tears 1 drop 11/17/18 06:00 11/23/18 06:23 Artificial Tears OU 1 drop TID NABIL Administration Aspirin 81 mg 11/17/18 10:00 11/23/18 08:59 Asa - GT 81 mg DAILY NABIL Administration Bacitracin 1 applic 11/17/18 12:30 11/23/18 09:00 Bacitracin - TP 1 applic DAILY NABIL Administration Bacitracin 1 applic 11/22/18 19:00 11/23/18 09:00 Bacitracin - TP 1 applic DAILY NABIL Administration Bisacodyl 10 mg 11/21/18 08:28 Dulcolax Suppository - [place] DAILY PRN CONSTIPATION Enoxaparin Sodium 40 mg 11/17/18 10:00 11/23/18 09:00 Lovenox - SQ 40 mg DAILY NABIL Administration Glycerin 1 each 11/20/18 17:00 11/23/18 10:00 Glycerin Suppository Adult - RC 1 each DAILY NABIL Administration Piperacillin Sod/Tazobactam 50 mls @ 100 mls/hr 11/18/18 02:00 11/23/18 09:00 Sod 3.375 gm/ Dextrose IVPB 100 mls/hr Q8H-IV NABIL Administration Protocol Levothyroxine Sodium 50 mcg 11/17/18 07:00 11/23/18 06:23 Synthroid - GT 50 mcg Q2D@0700 NABIL Administration Memantine 10 mg 11/18/18 22:00 11/23/18 08:59 Namenda - PO 10 mg BID NABIL Administration Polyethylene Glycol 17 gm 11/19/18 22:00 11/23/18 08:59 Miralax (For Daily Use) - PEG 17 gm BID NABIL Administration Senna 8.8 mg 11/19/18 22:00 11/22/18 22:07 Senna Oral Solution - PEG 8.8 mg HS NABIL Administration ASSESSMENT/PLAN: This is a 78 year old woman with a history of Parkinson's, dementia, HTN, hyperlipidemia, anemia, hypothyroidism, decubitus ulcer, PEG who presented to the ED with bilateral arm tremors. 1. Sepsis secondary to E. faecalis UTI, possible pneumonia - Afebrile, WBC improving - Blood cultures negative after 48 hours - Repeat urine culture pending, urinalysis improved - Continue Zosyn (day 7) - discontinue in am 2. Parkinson's disease with dementia - Continue Namenda 3. Hepatic transaminitis - Stable - Lipitor held - Continue to monitor LFTs 4. Rhabdomyolysis - Improved 5. HTN - Continue Norvasc 6. Hyperlipidemia - Lipitor held secondary to transaminitis 7. Hypothyroidism - Continue Synthroid 8. RLE Odell's cyst 9. Anemia - Likely secondary to sepsis, chronic illness - Continue to monitor hemoglobin 10. Stage III sacral pressure ulcer - Continue wound care - No evidence of infection 11. Constipation with fecal impaction - s/p disimpaction 11/20 - Continue Senna, Miralax, glycerin suppository 12. Nutrition - Continue Jevity 1.5 PEG feeds - Continue ProSource Visit type - Emergency Visit Emergency Visit: Yes ED Registration Date: 11/16/18 Care time: The patient presented to the Emergency Department on the above date and was hospitalized for further evaluation of their emergent condition. - New Patient This patient is new to me today: No - Critical Care Critical Care patient: No - Discharge Referral Referred to [facility] Med P.C.: No
[2018-11-23] MEDS: SENNOSIDES 8.8 MG/5 ML BULK BOTTLE PEG SCH (21:55)
[2018-11-24] MEDS: ARTIFICIAL TEARS (POLYVINYL ALCOHOL) OPTH DROPS OU SCH ×3 (05:39→21:13)
[2018-11-24 07:15] LABS: BASO % 0.4 % (0-2.0); EOS % 1.1 % (0-4.5); HEMOGLOBIN 8.2 GM/dL (10.7-15.3); LYMPH % 9.9 % (8-40); MCH 27.1 pg (25.7-33.7); MCHC 31.4 g/dl (32.0-36.0); MEAN CELL VOLUME 86.3 fl (80-96); MEAN PLT VOLUME 8.1 fl (7.5-11.1); MONO % 6.2 % (3.8-10.2); NEUT % 82.4 % (42.8-82.8); PLATELET COUNT 470 K/MM3 (134-434); RBC 3.01 M/mm3 (3.60-5.2); RDW 19.2 % (11.6-15.6); WHITE BLOOD COUNT 12.9 K/mm3 (4.0-10.0)
[2018-11-24 07:31] LABS: ALBUMIN 1.4 g/dl (3.4-5.0); BILIRUBIN,TOTAL 0.2 mg/dL (0.2-1); BLOOD UREA NITROGEN 49.3 mg/dL (7-18); CALCIUM 7.8 mg/dL (8.5-10.1); CREATININE 0.8 mg/dL (0.55-1.3); POTASSIUM 3.4 mmol/L (3.5-5.1); TOT PROT 6.2 g/dl (6.4-8.2)
[2018-11-24] MEDS ORDERED: PT OWN MED DRAWER 7, Y5N ONE ×3 (10:34→21:03)
[2018-11-24] MEDS: AMINO ACIDS/PROTEIN HYDROLYS 30 ML LIQUID.PKT PO SCH ×2 (10:35→18:20)
[2018-11-24] MEDS: GLYCERIN 1 RECTAL SUPPOSITORY, ADULT RC SCH (10:41)
[2018-11-24] MEDS: ASPIRIN 81 MG CHEWABLE TABLETS GT SCH (10:48)
[2018-11-24] MEDS: BACITRACIN 15 GM TUBE TOPICAL OINTMENT TP SCH ×2 (10:48)
[2018-11-24] MEDS: MEMANTINE HCL 10 MG TABLET (FP) PO SCH ×2 (10:49→21:15)
[2018-11-24] MEDS: amLODIPine BESYLATE 10 MG TABLET (FP) GT SCH (10:49)
[2018-11-24] MEDS: POLYETHYLENE GLYCOL 3350 119 GM BTL PEG SCH ×2 (10:49→21:15)
--- NOTE | 2018-11-24 12:15 | PN ---
Progress Note (short form) - Note Progress Note: afebrile today alert NAD Vital Signs Period Temp Pulse Resp BP Sys/Torres Pulse Ox Last 24 Hr 98.4 F-98.9 F 74-81 17-18 124-153/59-74 97 cor-rrr lungs clear abd soft,nt ext phlebitis left forearm CBC, BMP 11/24/18 06:32 11/24/18 06:32 Microbiology 11/22/18 18:50 Urine - Urine - Catheterized Urine Culture - Final NO GROWTH OBTAINED 11/21/18 15:00 Blood - Peripheral Venous Blood Culture - Preliminary NO GROWTH OBTAINED AFTER 48 HOURS, INCUBATION TO CONTINUE FOR 3 DAYS. 11/21/18 15:00 Blood - Peripheral Venous Blood Culture - Preliminary NO GROWTH OBTAINED AFTER 48 HOURS, INCUBATION TO CONTINUE FOR 3 DAYS. 11/22/18 18:50 Urine For Antigen Detection Legionella Antigen - Final 11/22/18 18:50 Urine For Antigen Detection Streptococcus pneumoniae Antigen (M - Final 11/16/18 21:50 Ulcer Gram Stain - Final 11/16/18 21:50 Ulcer Wound Culture - Final Pseudomonas Aeruginosa Escherichia Coli 11/16/18 15:53 Urine - Urine - Catheterized Urine Culture - Final Enterococcus Faecalis a/p fevers resolved leukocytosis is improved cultures of blood negative ua is negative , urine culture is negative can d/c zosyn today compresses for phlebitis left forearm fecal impaction- s/p disimpaction-now having bowel movements dementia small sacral ulcer- local care would monitor in hospital overnight Problem List - Problems (1) Leukocytosis Code(s): D72.829 - ELEVATED WHITE BLOOD CELL COUNT, UNSPECIFIED Qualifiers: Leukocytosis type: unspecified Qualified Code(s): D72.829 - Elevated white blood cell count, unspecified (2) LFT elevation Code(s): R94.5 - ABNORMAL RESULTS OF LIVER FUNCTION STUDIES
--- NOTE | 2018-11-24 15:55 | PN ---
Physical Exam: SUBJECTIVE: Patient seen and examined. No acute events overnight. Pt is nonverbal. OBJECTIVE: Vital Signs Period Temp Pulse Resp BP Sys/Torres Pulse Ox Last 24 Hr 98.4 F-98.9 F 74-81 18-18 124-134/59-64 97 GENERAL: The patient is awake, alert, and fully oriented, in no acute distress. HEAD: Normal with no signs of trauma. EYES: Extraocular movements intact, sclera anicteric LUNGS: Breath sounds equal, clear to auscultation bilaterally, no wheezes, no crackles, no accessory muscle use. HEART: Regular rate and rhythm, S1, S2 without murmur, rub or gallop. ABDOMEN: PEG tube intact. Soft, nontender, nondistended, normoactive bowel sounds, no guarding, no rebound, no hepatosplenomegaly, no masses. EXTREMITIES: Contracted. No edema. SKIN: Warm, dry, normal turgor, no rashes or lesions noted Laboratory Results - last 24 hr CBC, BMP 11/24/18 06:32 11/24/18 06:32 Active Medications Current Medications Amino Acids (Prosource No Carb Liquid Pkt) 30 ml PO BID@0800,1730 [facility] Last Admin: 11/24/18 10:35 Dose: 30 ml Amlodipine Besylate (Norvasc -) 10 mg GT DAILY [facility] Last Admin: 11/24/18 10:49 Dose: 10 mg Artificial Tears (Artificial Tears) 1 drop OU TID [facility] Last Admin: 11/24/18 05:39 Dose: 1 drop Aspirin (Asa -) 81 mg GT DAILY [facility] Last Admin: 11/24/18 10:48 Dose: 81 mg Bacitracin (Bacitracin -) 1 applic TP DAILY [facility] Last Admin: 11/24/18 10:48 Dose: 1 applic Bacitracin (Bacitracin -) 1 applic TP DAILY [facility] Last Admin: 11/24/18 10:48 Dose: 1 applic Bisacodyl (Dulcolax Suppository -) 10 mg [place] DAILY PRN PRN Reason: CONSTIPATION Glycerin (Glycerin Suppository Adult -) 1 each RC DAILY [facility] Last Admin: 11/24/18 10:41 Dose: 1 each Levothyroxine Sodium (Synthroid -) 50 mcg GT Q2D@0700 [facility] Last Admin: 11/23/18 06:23 Dose: 50 mcg Memantine (Namenda -) 10 mg PO BID [facility] Last Admin: 11/24/18 10:49 Dose: 10 mg Polyethylene Glycol (Miralax (For Daily Use) -) 17 gm PEG BID [facility] Last Admin: 11/24/18 10:49 Dose: 17 gm Senna (Senna Oral Solution -) 8.8 mg PEG HS [facility] Last Admin: 11/23/18 21:55 Dose: Not Given ASSESSMENT/PLAN: Pt is a 78 y/o F with PMHx of Parkinson's, Alzheimer's, HTN, HLD, hypothyroidism , seizure disorder, decubitus ulcer, s/p PEG tube placement, chronic arm tremors , brought from home by daughter, (pts primary care transition coordinator) for new b/l UE tremors, persistent (up to 10-15 continuous) over 2-3 mins. #New b/l UE tremors Dr Keene- on board----> Continue antibiotics (day 7 of zosyn), IV hydration and ID workup. Head CT (C-). Observe off valproic acid as may increase LFTs ( also antibiotics, i.e Zosyn) #Leukocytosis WBC 17 on admission. WBC today 12.9 12/23/2018. WBC 13.4 yesterday. Will continue to trend and follow. Day 7 of Zosyn - per ID, pt completed treatment, discontinue abx CT of abdomen and chest and pelvis---> Density posteriorly at the right base, possibly representing infiltrate or atelectasis. Small right pleural effusion. Marked obstipation and fecal impaction w/ Stercoral Proctitis. Manually disimpacted 11/20. Copious amount of large well formed stool evacuated from rectum. #Decubitus ulcer Wound cx ----> Pseudomonas Aeruginosa, Ucx Group D Strep, or Enterococcus. Both sensitive to Zosyn. Blood cultures pending - no growth in 48 hours. Wound care on board ID on board and determined ulcer is not source of infection #AMS Per daughter, gradually increasing somnolence over past 2 weeks Could be in setting of worsening parkinson's/Alzheimers- continue mematine Neuro on board Dr Keene #Parkinson's/Alzheimer's Cont Namenda #HTN Cont amlodipine 10mg #HLD Hold statins in setting of elevated transaminases. AST/ALT trending downwards. #Hypothyroidism TSH elevated 5.4 In setting of acute possible infectious process #Seizure disorder Per neurology: Observe off valproic acid as may increase LFTs (also antibiotics , i.e Zosyn) #Anemia H/H 8.0/25.5 Trend CBC. Transfuse < 7.0. Stool occult NEGATIVE. #RLE edema Duplex US- shows rice's cyst #FEN No Standing fluid Monitor Electrolytes Jevity 1.5 DVT ppx: Lovenox-sq Visit type - Emergency Visit Emergency Visit: Yes ED Registration Date: 11/16/18 Care time: The patient presented to the Emergency Department on the above date and was hospitalized for further evaluation of their emergent condition. - New Patient This patient is new to me today: Yes Date on this admission: 11/24/18 - Critical Care Critical Care patient: No
--- NOTE | 2018-11-24 18:53 | PN ---
Teaching Attending Note Name of Resident: Aga Cr ATTENDING PHYSICIAN STATEMENT I saw and evaluated the patient. I reviewed the resident's note and discussed the case with the resident. I agree with the resident's findings and plan as documented. SUBJECTIVE: No events over night. unable to obtain hx OBJECTIVE: NAD , opens eyes CV: 2/6 SM at RUSB. Lungs: CTAB Ext: no edema over LE Abd: sfot, NT, ND , PEG in place with intact skin decub ulcer on sacral area ASSESSMENT AND PLAN: 78 y/o lady with h/o Parkinson's, dementia, HTN, hyperlipidemia, anemia, hypothyroidism, decubitus ulcer, PEG who presented with tremors and was found to ahve fecal impaction and UTI 1- UTI: sepsis resolved. possible PNA - dc Abx 2- dehydration : increase free water in TF . Monitor NA 3- ROBERT : cr doubled. looks volume debleted and dehydrated - increase free water rate in TF 4- Transaminitis : cont to hold lipitor . Not sure about benefit of this medicine at this age and condition 5- SAcral decub: frequent turning 6- Constipation with fecal impaction with stercoral proctitis: s/p disimpaction. cont bowel regimen 7- DVT Px
[2018-11-24] MEDS: SENNOSIDES 8.8 MG/5 ML BULK BOTTLE PEG SCH (21:12)
[2018-11-24] MEDS: HEPARIN NA (PORCINE) 5,000 UNITS/ML 1ML VIAL SQ SCH (21:12)
[2018-11-25] MEDS: ARTIFICIAL TEARS (POLYVINYL ALCOHOL) OPTH DROPS OU SCH ×3 (05:56→21:34)
[2018-11-25] MEDS: HEPARIN NA (PORCINE) 5,000 UNITS/ML 1ML VIAL SQ SCH ×3 (05:56→21:34)
[2018-11-25] MEDS: LEVOTHYROXINE NA 50 MCG TABLET (FP) GT SCH (06:30)
[2018-11-25 07:34] LABS: HEMATOCRIT 24.7 % (32.4-45.2); HEMOGLOBIN 7.8 GM/dL (10.7-15.3); MCH 27.2 pg (25.7-33.7); MCHC 31.6 g/dl (32.0-36.0); PLATELET COUNT 449 K/MM3 (134-434); RBC 2.87 M/mm3 (3.60-5.2); RDW 19.2 % (11.6-15.6); WHITE BLOOD COUNT 13.6 K/mm3 (4.0-10.0)
[2018-11-25 08:22] LABS: ALBUMIN 1.5 g/dl (3.4-5.0); BILIRUBIN,TOTAL 0.2 mg/dL (0.2-1); BLOOD UREA NITROGEN 56.7 mg/dL (7-18); CREATININE 0.8 mg/dL (0.55-1.3); POTASSIUM 3.5 mmol/L (3.5-5.1); TOT PROT 6.3 g/dl (6.4-8.2)
[2018-11-25] MEDS: SODIUM CHLORIDE 0.45% 1,000 ML IV SCH ×2 (08:56→21:39)
[2018-11-25] MEDS: AMINO ACIDS/PROTEIN HYDROLYS 30 ML LIQUID.PKT PO SCH ×2 (09:00→17:44)
[2018-11-25] MEDS: ASPIRIN 81 MG CHEWABLE TABLETS GT SCH (09:04)
[2018-11-25] MEDS: POLYETHYLENE GLYCOL 3350 119 GM BTL PEG SCH ×2 (09:04→21:35)
[2018-11-25] MEDS: amLODIPine BESYLATE 10 MG TABLET (FP) GT SCH (09:04)
[2018-11-25] MEDS: BACITRACIN 15 GM TUBE TOPICAL OINTMENT TP SCH ×2 (09:04)
[2018-11-25] MEDS: MEMANTINE HCL 10 MG TABLET (FP) PO SCH ×2 (09:05→21:35)
[2018-11-25] MEDS: GLYCERIN 1 RECTAL SUPPOSITORY, ADULT RC SCH (09:10)
--- NOTE | 2018-11-25 16:27 | PN ---
Physical Exam: SUBJECTIVE: Patient seen and examined. No acute events overnight. Pt is nonverbal and no family was present at bedside. OBJECTIVE: Vital Signs Period Temp Pulse Resp BP Sys/Torres Pulse Ox Last 24 Hr 97.6 F-98.6 F 77-85 18-18 132-150/63-71 98 GENERAL: The patient is awake, alert, and fully oriented, in no acute distress. HEAD: Normal with no signs of trauma. EYES: Extraocular movements intact, sclera anicteric LUNGS: Breath sounds equal, clear to auscultation bilaterally, no wheezes, no crackles, no accessory muscle use. HEART: Regular rate and rhythm, S1, S2 without murmur, rub or gallop. ABDOMEN: PEG tube intact. Soft, nontender, nondistended, normoactive bowel sounds, no guarding, no rebound, no hepatosplenomegaly, no masses. EXTREMITIES: Contracted. No edema. SKIN: Warm, dry, normal turgor, no rashes or lesions noted Laboratory Results - last 24 hr 11/25/18 11/25/18 06:34 06:34 WBC 13.6 H RBC 2.87 L Hgb 7.8 L Hct 24.7 L MCV 86.0 MCH 27.2 MCHC 31.6 L RDW 19.2 H Plt Count 449 H MPV 8.0 Sodium 146 H Potassium 3.5 Chloride 111 H Carbon Dioxide 29 Anion Gap 6 L BUN 56.7 H Creatinine 0.8 Est GFR (CKD-EPI)AfAm 82.42 Est GFR (CKD-EPI)NonAf 71.11 Random Glucose 123 H Calcium 8.0 L Total Bilirubin 0.2 AST 171 H ALT 142 H Alkaline Phosphatase 167 H Total Protein 6.3 L Albumin 1.5 L Active Medications Amino Acids (Prosource No Carb Liquid Pkt) 30 ml PO BID@0800,1730 [facility] Last Admin: 11/25/18 09:00 Dose: 30 ml Amlodipine Besylate (Norvasc -) 10 mg GT DAILY [facility] Last Admin: 11/25/18 09:04 Dose: 10 mg Artificial Tears (Artificial Tears) 1 drop OU TID [facility] Last Admin: 11/25/18 14:53 Dose: 1 drop Aspirin (Asa -) 81 mg GT DAILY [facility] Last Admin: 11/25/18 09:04 Dose: 81 mg Bacitracin (Bacitracin -) 1 applic TP DAILY [facility] Last Admin: 11/25/18 09:04 Dose: 1 applic Bacitracin (Bacitracin -) 1 applic TP DAILY [facility] Last Admin: 11/25/18 09:04 Dose: 1 applic Bisacodyl (Dulcolax Suppository -) 10 mg [place] DAILY PRN PRN Reason: CONSTIPATION Glycerin (Glycerin Suppository Adult -) 1 each RC DAILY [facility] Last Admin: 11/25/18 09:10 Dose: 1 each Heparin Sodium (Porcine) (Heparin -) 5,000 unit SQ TID [facility] Last Admin: 11/25/18 14:52 Dose: 5,000 unit Sodium Chloride (1/2 Normal Saline) 1,000 mls @ 75 mls/hr IV ASDIR [facility] Last Admin: 11/25/18 08:56 Dose: 75 mls/hr Levothyroxine Sodium (Synthroid -) 50 mcg GT Q2D@0700 [facility] Last Admin: 11/25/18 06:30 Dose: 50 mcg Memantine (Namenda -) 10 mg PO BID [facility] Last Admin: 11/25/18 09:05 Dose: 10 mg Polyethylene Glycol (Miralax (For Daily Use) -) 17 gm PEG BID [facility] Last Admin: 11/25/18 09:04 Dose: 17 gm Senna (Senna Oral Solution -) 8.8 mg PEG HS [facility] Last Admin: 11/24/18 21:12 Dose: 8.8 mg ASSESSMENT/PLAN: Pt is a 78 y/o F with PMHx of Parkinson's, Alzheimer's, HTN, HLD, hypothyroidism , seizure disorder, decubitus ulcer, s/p PEG tube placement, chronic arm tremors , brought from home by daughter, (pts primary care transport nurse) for new b/l UE tremors, persistent (up to 10-15 continuous) over 2-3 mins. #UTI Completed 7 day course of antibiotics, madhu the Jennifer WBC 17 on admission. WBC today 13.6 11/25/2018. Will continue to trend and follow. CT of abdomen and chest and pelvis---> Density posteriorly at the right base , possibly representing infiltrate or atelectasis. Small right pleural effusion. #Dehydration Increase free water in TF Add IVF NS 75 ml/hr Continue to monitor BMP #Decubitus ulcer Wound cx --> Pseudomonas Aeruginosa, Ucx Group D Strep, or Enterococcus. Both sensitive to Zosyn. Blood cultures pending - no growth in 72 hours. Wound care on board ID on board and determined ulcer is not source of infection, dc abx #AMS Per daughter, gradually increasing somnolence over past 2 weeks Could be in setting of worsening parkinson's/Alzheimers- continue mematine Neuro on board Dr Keene #Anemia H/H 7.8/24.7, continue to trend CBC. Transfuse < 7.0. Stool occult NEGATIVE #Parkinson's/Alzheimer's Cont Namenda #HTN Cont amlodipine 10mg #HLD Hold statins in setting of elevated transaminases. AST/ALT trending downwards. #Hypothyroidism TSH elevated 5.14 In setting of acute possible infectious process #Seizure disorder Per neurology: Observe off valproic acid as may increase LFTs (also antibiotics, i.e Zosyn) #RLE edema Duplex US- shows rice's cyst #FEN No Standing fluid Monitor Electrolytes Jevity 1.5 #DVT ppx: Lovenox subq Visit type - Emergency Visit Emergency Visit: No - New Patient This patient is new to me today: No - Critical Care Critical Care patient: No
[2018-11-25 18:06] LABS: BLOOD UREA NITROGEN 60.1 mg/dL (7-18); CALCIUM 7.8 mg/dL (8.5-10.1); CREATININE 0.8 mg/dL (0.55-1.3); POTASSIUM 3.2 mmol/L (3.5-5.1)
[2018-11-25] MEDS ORDERED: POTASSIUM CHLORIDE ORAL LIQUID 20 MEQ/15 ML PO ONE (18:09)
--- NOTE | 2018-11-25 18:32 | PN ---
Teaching Attending Note Name of Resident: Annette Laboy ATTENDING PHYSICIAN STATEMENT I saw and evaluated the patient. I reviewed the resident's note and discussed the case with the resident. I agree with the resident's findings and plan as documented. SUBJECTIVE: No events over night OBJECTIVE: NAD , awake, no communication CV: 2/6 SM at RUSB. Lungs: CTAB Ext: no edema over LE Abd: soft, NT, ND , PEG in place with intact skin decub ulcer was not examined today ASSESSMENT AND PLAN: 78 y/o lady with h/o Parkinson's, dementia, HTN, hyperlipidemia, anemia, hypothyroidism, decubitus ulcer, PEG who presented with tremors and was found to have fecal impaction and UTI 1- UTI: sepsis resolved. possible PNA - off Abx 2- Dehydration : - cont increased Free water through PEG - add 1/2 NS at 75 - repeat Na in am 3- ROBERT : BUN cont to increase. - cont free water and IVF as above 4- Transaminitis : cont to hold lipitor . Not sure about benefit of this medicine at this age and condition US was done and showed no signs of CBD dilation or cholecystitis 5- Sacral decub: frequent turning 6- Constipation with fecal impaction with stercoral proctitis: s/p disimpaction. cont bowel regimen 7- DVT Px dispo : pending improvement in renal function .
--- NOTE | 2018-11-25 20:08 | PN ---
Progress Note (short form) - Note Progress Note: NEUROLOGY PROGRESS: Now s/p IV Zosyn for UTI, complicated by fecal impaction. Pt has been monitored off Depakote (for myoclonic jerks). LFTS remain elevated with AST 171, ALT 142, Alk phos 167. Now BUN 30-> 60. WBC remains elevated at 13.6 with H/H downtrending from 8.2/26-> 7.8/24.7. with stool occult neg. ID workup revealed neg repeat urine culture, neg Blood cultures x 2, however imaging ? R pleural effusion/infiltrate. Still with pressure ulcer to sacrum. MCV 86. ADARSH: PEG in situ. NEURO: Spontaneous eye opening. Follows no commands. + glabella, snout Full EOM's with Doll's eyes. Intermittent myoclonic jerks of hands. Rigid tone legs > arms. Normal reflexes. Withdrawal to pinch all fours and grimace. Impression: Severe B/L Cerebral dysfunction (OMS, chronic) c/w Advanced Alzheimer's Disease (AD) Myoclonic jerks Worsened by Toxic-Metabolic Encephalopathy (i.e wound infection , transaminitis, PNA) Suggest: Check ESR, CRP, Fe++, TIBC, Iron, Ferritin, Ammonia level Increase hydration through PEG if necessary Observe off Depakote at this time Heme/GI consult for workup of worsening anemia from baseline (Hg 10 on admission) Thank you very much, Eugene Keene MD
[2018-11-25] MEDS ORDERED: PT OWN MED DRAWER 7, Y5N ONE (21:18)
[2018-11-25] MEDS: SENNOSIDES 8.8 MG/5 ML BULK BOTTLE PEG SCH (21:35)
[2018-11-26] MEDS: ARTIFICIAL TEARS (POLYVINYL ALCOHOL) OPTH DROPS OU SCH ×3 (06:28→21:29)
[2018-11-26] MEDS: HEPARIN NA (PORCINE) 5,000 UNITS/ML 1ML VIAL SQ SCH ×3 (06:28→21:28)
[2018-11-26 07:33] LABS: HEMATOCRIT 24.2 % (32.4-45.2); HEMOGLOBIN 7.6 GM/dL (10.7-15.3); MCH 27.3 pg (25.7-33.7); MCHC 31.5 g/dl (32.0-36.0); MEAN CELL VOLUME 86.6 fl (80-96); MEAN PLT VOLUME 8.2 fl (7.5-11.1); PLATELET COUNT 420 K/MM3 (134-434); RBC 2.79 M/mm3 (3.60-5.2); RDW 19.3 % (11.6-15.6); WHITE BLOOD COUNT 13.3 K/mm3 (4.0-10.0)
[2018-11-26 08:08] LABS: ALBUMIN 1.4 g/dl (3.4-5.0); BILIRUBIN,TOTAL 1.1 mg/dL (0.2-1); BLOOD UREA NITROGEN 49.3 mg/dL (7-18); CALCIUM 7.8 mg/dL (8.5-10.1); CREATININE 0.6 mg/dL (0.55-1.3); POTASSIUM 3.8 mmol/L (3.5-5.1); TOT PROT 6.1 g/dl (6.4-8.2)
--- NOTE | 2018-11-26 08:24 | PN ---
Teaching Attending Note Name of Resident: Annette Laboy ATTENDING PHYSICIAN STATEMENT I saw and evaluated the patient. I reviewed the resident's note and discussed the case with the resident. I agree with the resident's findings and plan as documented. SUBJECTIVE: Patient is lying in bed comfortably with no acute distress. No shortness of breath. daughter at bedside. OBJECTIVE: Vital Signs Temperature 98.4 F 11/26/18 05:55 Pulse Rate 86 11/26/18 05:55 Respiratory Rate 18 11/26/18 05:55 Blood Pressure 157/76 11/26/18 05:55 O2 Sat by Pulse Oximetry (%) 98 11/25/18 21:00 GEN:Lying in bed, non verbal Eyes: Conjunctiva Clear, EOM Intact, PERRL. HENT: Atraumatic,NC Cardiovascular: S1, S2 positive, RRR. Respiratory: decreased BS BL Gastrointestinal: positive for (PEG tube in place LUQ clean,dry, no erythema) SKIN: decubitus Ulcer (presented from home with Sacral decubitus stage 3-2x2cm, non purulent, clean, dry) Neurological:Non verbal, contracted Psychiatric: nonverbal Extremeties: trace edema of the legs, below ankles due to gravity. WBC 13.3 K/mm3 (4.0-10.0) H 11/26/18 06:28 RBC 2.79 M/mm3 (3.60-5.2) L 11/26/18 06:28 Hgb 7.6 GM/dL (10.7-15.3) L 11/26/18 06:28 Hct 24.2 % (32.4-45.2) L 11/26/18 06:28 MCV 86.6 fl (80-96) 11/26/18 06:28 MCHC 31.5 g/dl (32.0-36.0) L 11/26/18 06:28 RDW 19.3 % (11.6-15.6) H 11/26/18 06:28 Plt Count 420 K/MM3 (134-434) 11/26/18 06:28 MPV 8.2 fl (7.5-11.1) 11/26/18 06:28 CMP Sodium 146 mmol/L (136-145) H 11/26/18 06:28 Potassium 3.8 mmol/L (3.5-5.1) 11/26/18 06:28 Chloride 112 mmol/L (98-107) H 11/26/18 06:28 Carbon Dioxide 29 mmol/L (21-32) 11/26/18 06:28 Anion Gap 5 MMOL/L (8-16) L 11/26/18 06:28 BUN 49.3 mg/dL (7-18) H 11/26/18 06:28 Creatinine 0.6 mg/dL (0.55-1.3) 11/26/18 06:28 Random Glucose 97 mg/dL (74-106) 11/26/18 06:28 Calcium 7.8 mg/dL (8.5-10.1) L 11/26/18 06:28 Total Bilirubin 1.1 mg/dL (0.2-1) H 11/26/18 06:28 AST 184 U/L (15-37) H 11/26/18 06:28 ALT 176 U/L (13-61) H 11/26/18 06:28 Alkaline Phosphatase 175 U/L (45-117) H 11/26/18 06:28 Total Protein 6.1 g/dl (6.4-8.2) L 11/26/18 06:28 Albumin 1.4 g/dl (3.4-5.0) L 11/26/18 06:28 CARDIAC ENZYMES Creatine Kinase 300 U/L (26-192) H 11/19/18 06:34 Troponin I < 0.02 ng/ml (0.00-0.05) 11/17/18 07:33 Current Medications Generic Name Dose Route Start Last Admin Trade Name Rema PRN Reason Stop Dose Admin Amino Acids 30 ml 11/19/18 08:00 11/25/18 17:44 Prosource No Carb Liquid Pkt PO 30 ml BID@0800,1730 NABIL Administration Amlodipine Besylate 10 mg 11/17/18 10:00 11/25/18 09:04 Norvasc - GT 10 mg DAILY NABIL Administration Artificial Tears 1 drop 11/17/18 06:00 11/26/18 06:28 Artificial Tears OU 1 drop TID NABIL Administration Aspirin 81 mg 11/17/18 10:00 11/25/18 09:04 Asa - GT 81 mg DAILY NABIL Administration Bacitracin 1 applic 11/17/18 12:30 11/25/18 09:04 Bacitracin - TP 1 applic DAILY NABIL Administration Bacitracin 1 applic 11/22/18 19:00 11/25/18 09:04 Bacitracin - TP 1 applic DAILY NABIL Administration Bisacodyl 10 mg 11/21/18 08:28 Dulcolax Suppository - CT DAILY PRN CONSTIPATION Glycerin 1 each 11/20/18 17:00 11/25/18 09:10 Glycerin Suppository Adult - RC 1 each DAILY NABIL Administration Heparin Sodium (Porcine) 5,000 unit 11/24/18 22:00 11/26/18 06:28 Heparin - SQ 5,000 unit TID NABIL Administration Sodium Chloride 1,000 mls @ 75 mls/hr 11/25/18 08:30 11/25/18 21:39 IV 75 mls/hr D51/2NS ASDIR NABIL Administration Levothyroxine Sodium 50 mcg 11/17/18 07:00 11/25/18 06:30 Synthroid - GT 50 mcg Q2D@0700 NABIL Administration Memantine 10 mg 11/18/18 22:00 11/25/18 21:35 Namenda - PO 10 mg BID NABIL Administration Polyethylene Glycol 17 gm 11/19/18 22:00 11/25/18 21:35 Miralax (For Daily Use) - PEG 17 gm BID NABIL Administration Senna 8.8 mg 11/19/18 22:00 11/25/18 21:35 Senna Oral Solution - PEG 8.8 mg HS NABIL Administration Home Medications Medication Instructions Recorded Aspirin [ASA -] 81 mg GT DAILY 04/17/17 Atorvastatin Ca [Lipitor] 40 mg GT HS 04/17/17 Levothyroxine [Synthroid -] 50 mcg GT ASDIR 04/17/17 Memantine HCl [Namenda Xr] 28 mg GT DAILY 04/17/17 Polyethylene Glycol 3350 [Miralax 17 g GT PRN PRN 06/17/18 119 gm Btl -] Polyvinyl Alcohol [Artificial 1 drop OU TID #1 drops 07/28/18 Tears] Amlodipine Besylate [Norvasc -] 10 mg GT DAILY 11/16/18 Microbiology 11/21/18 15:00 Blood - Peripheral Venous Blood Culture - Preliminary NO GROWTH OBTAINED AFTER 96 HOURS, INCUBATION TO CONTINUE FOR 1 DAYS. 11/21/18 15:00 Blood - Peripheral Venous Blood Culture - Preliminary NO GROWTH OBTAINED AFTER 96 HOURS, INCUBATION TO CONTINUE FOR 1 DAYS. 11/22/18 18:50 Urine - Urine - Catheterized Urine Culture - Final NO GROWTH OBTAINED 11/22/18 18:50 Urine For Antigen Detection Legionella Antigen - Final 11/22/18 18:50 Urine For Antigen Detection Streptococcus pneumoniae Antigen (M - Final 11/16/18 21:50 Ulcer Gram Stain - Final 11/16/18 21:50 Ulcer Wound Culture - Final Pseudomonas Aeruginosa Escherichia Coli 11/16/18 15:53 Urine - Urine - Catheterized Urine Culture - Final Enterococcus Faecalis ASSESSMENT AND PLAN: Patient is a 78yo female with hx of Parkinson's, dementia, HTN, HLD, anemia, hypothyroidism, decubitus ulcer stage 2, PEG who presented with tremors and was found to have fecal impaction and UTI # Acute Transaminitis : continue to hold lipitor. worsening the level , will repeat the level in am , will repeat the US of abdomen. will discuss regarding possible MRCP. presented with 283-->156-->116-->89-->184 today, will monitor, check the result of US. # Acute mild hypernatremia due to dehydration: will switch to IV d51/2NS at 75cc /hr x 1 liter # UTI: sepsis resolved. possible PNA , off antibiotic now. Discussed with ID # Acute dehydration : increase free water in TF . Monitor NA # ROBERT : creatinine is 0.6, BUN 56 due to dehydration , will switch to IV d51/ 2NS x 1liter. # SAcral decub stage 2: frequent turning # Constipation with fecal impaction with stercoral proctitis: s/p disimpaction. cont bowel regimen DVT Px : Heparin sq Call the daughter for update on a daily basis. follow the ferritin level, cmp, lipid panel, LFTs, CBC.
[2018-11-26] MEDS: AMINO ACIDS/PROTEIN HYDROLYS 30 ML LIQUID.PKT PO SCH ×2 (09:05→19:01)
[2018-11-26] MEDS: amLODIPine BESYLATE 10 MG TABLET (FP) GT SCH (09:16)
[2018-11-26] MEDS: ASPIRIN 81 MG CHEWABLE TABLETS GT SCH (09:16)
[2018-11-26] MEDS: MEMANTINE HCL 10 MG TABLET (FP) PO SCH ×2 (09:17→21:57)
[2018-11-26] MEDS: BACITRACIN 15 GM TUBE TOPICAL OINTMENT TP SCH ×2 (10:00→10:40)
[2018-11-26] MEDS ORDERED: PT OWN MED DRAWER 7, Y5N ONE ×2 (10:37→18:27)
[2018-11-26] MEDS: POLYETHYLENE GLYCOL 3350 119 GM BTL PEG SCH ×2 (10:39→21:57)
[2018-11-26] MEDS: DEXTROSE 5%-0.45% SALINE 1,000 ML IV SCH (10:39)
--- NOTE | 2018-11-26 13:44 | DS ---
Physical Exam: SUBJECTIVE: Patient seen and examined OBJECTIVE: Vital Signs Period Temp Pulse Resp BP Sys/Torres Pulse Ox Last 24 Hr 98.2 F-99.1 F 77-102 18-18 129-157/59-80 98-98 PHYSICAL EXAM GENERAL: The patient is awake, alert, and fully oriented, in no acute distress. HEAD: Normal with no signs of trauma. EYES: PERRL, extraocular movements intact, sclera anicteric, conjunctiva clear. ENT: Ears normal, nares patent, oropharynx clear without exudates, moist mucous membranes. NECK: Trachea midline, full range of motion, supple. LUNGS: Breath sounds equal, clear to auscultation bilaterally, no wheezes, no crackles, no accessory muscle use. HEART: Regular rate and rhythm, S1, S2 without murmur, rub or gallop. ABDOMEN: Soft, nontender, nondistended, normoactive bowel sounds, no guarding, no rebound, no hepatosplenomegaly, no masses. EXTREMITIES: 2+ pulses, warm, well-perfused, no edema. NEUROLOGICAL: Cranial nerves II through XII grossly intact. Normal speech, gait not observed. PSYCH: Normal mood, normal affect. SKIN: Warm, dry, normal turgor, no rashes or lesions noted. LABS Laboratory Results - last 24 hr 11/25/18 11/26/18 11/26/18 16:55 06:28 06:28 WBC 13.3 H RBC 2.79 L Hgb 7.6 L Hct 24.2 L MCV 86.6 MCH 27.3 MCHC 31.5 L RDW 19.3 H Plt Count 420 MPV 8.2 ESR Sodium 146 H 146 H Potassium 3.2 L 3.8 Chloride 111 H 112 H Carbon Dioxide 29 29 Anion Gap 7 L 5 L BUN 60.1 H 49.3 H Creatinine 0.8 0.6 Est GFR (CKD-EPI)AfAm 82.42 101.90 Est GFR (CKD-EPI)NonAf 71.11 87.92 Random Glucose 124 H 97 Calcium 7.8 L 7.8 L Total Bilirubin 1.1 H AST 184 H ALT 176 H Alkaline Phosphatase 175 H Ammonia C-Reactive Protein 3.8 H Total Protein 6.1 L Albumin 1.4 L 11/26/18 11/26/18 06:28 06:59 WBC RBC Hgb Hct MCV MCH MCHC RDW Plt Count MPV ESR 123 H Sodium Potassium Chloride Carbon Dioxide Anion Gap BUN Creatinine Est GFR (CKD-EPI)AfAm Est GFR (CKD-EPI)NonAf Random Glucose Calcium Total Bilirubin AST ALT Alkaline Phosphatase Ammonia 22.70 C-Reactive Protein Total Protein Albumin HOSPITAL COURSE: Date of Admission:11/16/18 Date of Discharge: 11/26/18 Discharge Summary Reason For Visit: UTI/ELEVATED LIVER FUNCTION TEST/LEUKOCYTOSIS Current Active Problems Hypothyroid (Chronic) Condition: Stable - Instructions Diet, Activity, Other Instructions: You were admitted to the hospital for a urinary tract infection. We treated your infection with antibiotics and your infection resolved. While you were here, we treated an ulcer on your lower back. We monitored your ulcer and we treated you with antibiotics. Your ulcer is not infected at this time. To continue treatment of this ulcer: - Use an air mattress - Use drawsheets when repositioning to reduce friction and shear - Manage incontininence via timely cleansing, use of appropriate incontinence disposables and use of barrier ointment to intact skin - Ensure adequate hydration/nutrition, supplementation per primary team - Ensure off-loading to all bony areas (heels, ankles, hips, and tailbone) with Allevyn/Optifoam - Clean ulcer with normal saline and apply Bacitracin. If you have any further problems, follow up with wound care clinic Dr. Tristan Mckenzie at [phone]. You should follow up with your Primary care provider in one week. You should resume all of your home medications as prescribed. You should return to the Emergency Department if you have nausea, vomiting, fevers, chest pain or worsening of symptoms. Referrals: Talon Gonsalze MD [Primary Care Provider] - Tristan Mckenzie DO [Staff Physician] - Disposition: HOME - Home Medications Comprehensive Discharge Medication List: Ambulatory Orders Aspirin [ASA -] 81 mg GT DAILY 04/17/17 Atorvastatin Ca [Lipitor] 40 mg GT HS 04/17/17 Levothyroxine [Synthroid -] 50 mcg GT ASDIR 04/17/17 Memantine HCl [Namenda Xr] 28 mg GT DAILY 04/17/17 Polyethylene Glycol 3350 [Miralax 119 gm Btl -] 17 g GT PRN PRN 06/17/18 Polyvinyl Alcohol [Artificial Tears] 1 drop OU TID #1 drops 07/28/18 Amlodipine Besylate [Norvasc -] 10 mg GT DAILY 11/16/18 - Discharge Referral Referred to [facility] No
[2018-11-26 15:56] LABS: BLOOD UREA NITROGEN 47.6 mg/dL (7-18); CALCIUM 7.9 mg/dL (8.5-10.1); CREATININE 0.7 mg/dL (0.55-1.3); POTASSIUM 3.8 mmol/L (3.5-5.1)
--- NOTE | 2018-11-26 16:14 | PN ---
Physical Exam: SUBJECTIVE: Patient seen and examined. No acute events overnight. Pt is nonverbal, daughter was present at bedside. OBJECTIVE: Vital Signs Period Temp Pulse Resp BP Sys/Torres Pulse Ox Last 24 Hr 98.2 F-99.1 F 86-102 18-18 129-157/59-81 98-98 GENERAL: The patient is awake, alert, and fully oriented, in no acute distress. No communicaton. HEAD: Normal with no signs of trauma. EYES: PERRL, sclera anicteric, conjunctiva clear. No ptosis. ENT: Ears normal, nares patent, oropharynx clear without exudates, moist mucous membranes. NECK: Trachea midline, full range of motion, supple. LUNGS: Breath sounds equal, clear to auscultation bilaterally, no wheezes, no crackles, no accessory muscle use. HEART: Regular rate and rhythm, S1, S2 without murmur, rub or gallop. ABDOMEN: PEG tube intact with no erythema or purulent discharge. Soft, nontender , nondistended, normoactive bowel sounds, no guarding, no rebound, no hepatosplenomegaly, no masses. EXTREMITIES: Contracted, no edema. NEUROLOGICAL: Gait not observed. PSYCH: Unable to assess due to patieht's mental status SKIN: Warm, dry, normal turgor, no rashes or lesions noted Laboratory Results - last 24 hr 11/25/18 11/26/18 11/26/18 16:55 06:28 06:28 WBC 13.3 H RBC 2.79 L Hgb 7.6 L Hct 24.2 L MCV 86.6 MCH 27.3 MCHC 31.5 L RDW 19.3 H Plt Count 420 MPV 8.2 ESR Sodium 146 H 146 H Potassium 3.2 L 3.8 Chloride 111 H 112 H Carbon Dioxide 29 29 Anion Gap 7 L 5 L BUN 60.1 H 49.3 H Creatinine 0.8 0.6 Est GFR (CKD-EPI)AfAm 82.42 101.90 Est GFR (CKD-EPI)NonAf 71.11 87.92 Random Glucose 124 H 97 Calcium 7.8 L 7.8 L Total Bilirubin 1.1 H AST 184 H ALT 176 H Alkaline Phosphatase 175 H Ammonia C-Reactive Protein 3.8 H Total Protein 6.1 L Albumin 1.4 L Active Medications Current Medications Amino Acids (Prosource No Carb Liquid Pkt) 30 ml PO BID@0800,1730 [facility] Last Admin: 11/26/18 09:05 Dose: 30 ml Amlodipine Besylate (Norvasc -) 10 mg GT DAILY [facility] Last Admin: 11/26/18 09:16 Dose: 10 mg Artificial Tears (Artificial Tears) 1 drop OU TID [facility] Last Admin: 11/26/18 15:34 Dose: 1 drop Aspirin (Asa -) 81 mg GT DAILY [facility] Last Admin: 11/26/18 09:16 Dose: 81 mg Bacitracin (Bacitracin -) 1 applic TP DAILY [facility] Last Admin: 11/26/18 10:40 Dose: 1 applic Bacitracin (Bacitracin -) 1 applic TP DAILY [facility] Last Admin: 11/26/18 10:00 Dose: 1 applic Bisacodyl (Dulcolax Suppository -) 10 mg [place] DAILY PRN PRN Reason: CONSTIPATION Glycerin (Glycerin Suppository Adult -) 1 each RC DAILY [facility] Last Admin: 11/25/18 09:10 Dose: 1 each Heparin Sodium (Porcine) (Heparin -) 5,000 unit SQ TID [facility] Last Admin: 11/26/18 13:41 Dose: 5,000 unit Dextrose/Sodium Chloride (D5-1/2ns -) 1,000 mls @ 75 mls/hr IV ASDIR [facility] Last Admin: 11/26/18 10:39 Dose: 75 mls/hr Levothyroxine Sodium (Synthroid -) 50 mcg GT Q2D@0700 [facility] Last Admin: 11/25/18 06:30 Dose: 50 mcg Memantine (Namenda -) 10 mg PO BID [facility] Last Admin: 11/26/18 09:17 Dose: 10 mg Polyethylene Glycol (Miralax (For Daily Use) -) 17 gm PEG BID [facility] Last Admin: 11/26/18 10:39 Dose: 17 gm Senna (Senna Oral Solution -) 8.8 mg PEG HS [facility] Last Admin: 11/25/18 21:35 Dose: 8.8 mg Thiamine HCl (Vitamin B1 -) 100 mg PO HS [facility] ASSESSMENT/PLAN: Pt is a 78 y/o F with PMHx of Parkinson's, Alzheimer's, HTN, HLD, hypothyroidism , seizure disorder, decubitus ulcer, s/p PEG tube placement, chronic arm tremors , brought from home by daughter, (pts primary healthcare economics consultant) for new b/l UE tremors, persistent (up to 10-15 continuous) over 2-3 mins. #UTI Completed 7 day course of antibiotics, dc the Zosyn WBC 17 on admission. WBC today 13.3 11/26/2018. Will continue to trend and follow. CT of abd and chest---> Density posteriorly at the right base, possibly representing infiltrate or atelectasis. Small right pleural effusion. #Dehydration Increase free water in TF Add IVF D5 0.45% NS at 75ml/hr Continue to monitor BMP #Transaminitis AST/ALT trending upwards cont to elevate (184, 176) US abd, possible MRPC to assess gallbladder Cont to monitor LFTs, CBC, CMP, lipid panel, and coags #Decubitus ulcer Wound cx --> Pseudomonas Aeruginosa, Ucx Group D Strep, or Enterococcus. Both sensitive to Zosyn. Blood cx definitively negative Wound care and ID on board and determined ulcer is not source of infection, dc abx #AMS Per daughter, gradually increasing somnolence over past 2 weeks Could be in setting of worsening parkinson's/Alzheimers- continue mematine Neuro on board Dr Keene #Anemia H/H 7.6/24.2, continue to trend CBC. Transfuse < 7.0. Stool occult NEGATIVE Order iron, TIBC, ferritin, ESR #Parkinson's/Alzheimer's Cont Namenda #HTN Cont amlodipine 10mg #HLD Hold statins in setting of elevated transaminases #Hypothyroidism TSH elevated 5.14 In setting of acute possible infectious process Cont home meds synthroid 50mcg Q2D #Seizure disorder Per neurology: Observe off valproic acid as may increase LFTs (also antibiotics, i.e Zosyn) #RLE edema Duplex US- shows rice's cyst #FEN No Standing fluid Monitor Electrolytes Jevity 1.5 #DVT ppx: Lovenox subq 78 y/o lady with h/o Parkinson's, dementia, HTN, hyperlipidemia, anemia, hypothyroidism, decubitus ulcer, PEG who presented with tremors and was found to ahve fecal impaction and UTI # UTI: sepsis resolved. possible PNA - dc Abx # dehydration : increase free water in TF . Monitor NA # ROBERT : cr doubled. looks volume debleted and dehydrated - increase free water rate in TF # Transaminitis : cont to hold lipitor . Not sure about benefit of this medicine at this age and condition # SAcral decub: frequent turning # Constipation with fecal impaction with stercoral proctitis: s/p disimpaction. cont bowel regimen Visit type - Emergency Visit Emergency Visit: No - New Patient This patient is new to me today: No - Critical Care Critical Care patient: No
[2018-11-26] MEDS: GLYCERIN 1 RECTAL SUPPOSITORY, ADULT RC SCH ×2 (19:01→21:28)
[2018-11-26] MEDS: SENNOSIDES 8.8 MG/5 ML BULK BOTTLE PEG SCH (21:28)
[2018-11-26] MEDS: THIAMINE HCL 100 MG TABLET (FP) PO SCH (21:57)
[2018-11-27] MEDS: HEPARIN NA (PORCINE) 5,000 UNITS/ML 1ML VIAL SQ SCH ×3 (06:10→22:03)
[2018-11-27] MEDS: LEVOTHYROXINE NA 50 MCG TABLET (FP) GT SCH (06:10)
[2018-11-27] MEDS: ARTIFICIAL TEARS (POLYVINYL ALCOHOL) OPTH DROPS OU SCH ×3 (06:13→22:06)
[2018-11-27 08:09] LABS: SERUM IRON SATURATION 18 % (15-55); TOTAL IRON BINDING CAPACITY 185 ug/dL (250-450)
[2018-11-27 08:15] LABS: HEMATOCRIT 23.5 % (32.4-45.2); HEMOGLOBIN 7.5 GM/dL (10.7-15.3); MCH 27.5 pg (25.7-33.7); MCHC 31.8 g/dl (32.0-36.0); MEAN CELL VOLUME 86.5 fl (80-96); MEAN PLT VOLUME 8.3 fl (7.5-11.1); RBC 2.71 M/mm3 (3.60-5.2); RDW 19.6 % (11.6-15.6); WHITE BLOOD COUNT 12.4 K/mm3 (4.0-10.0)
[2018-11-27] MEDS: AMINO ACIDS/PROTEIN HYDROLYS 30 ML LIQUID.PKT PO SCH ×2 (08:29→17:29)
[2018-11-27 08:34] LABS: INR 1.05 (0.83-1.09); PROTHROMBIN TIME (PATIENT) 12.4 SEC (9.7-13.0)
--- NOTE | 2018-11-27 08:37 | PN ---
Progress Note (short form) - Note Progress Note: awake nonverbal Vital Signs Period Temp Pulse Resp BP Sys/Torres Pulse Ox Last 24 Hr 98.4 F-99.6 F 84-95 18-18 124-152/59-81 98 cor-rrr llungs clear abd soft,nt +GT ext no edema CBC, BMP 11/27/18 07:19 11/27/18 07:19 sonogram- no GB abnormality noted Selected Entries 11/21/18 22:55 Temperature Oral Source Laboratory Tests 11/22/18 11/26/18 11/27/18 18:50 06:28 07:19 AST 184 H 121 H ALT 176 H 143 H Alkaline Phosphatase 175 H 173 H Urine WBC (Auto) 3 Current Medications Amino Acids (Prosource No Carb Liquid Pkt) 30 ml PO BID@0800,1730 [facility] Last Admin: 11/27/18 08:29 Dose: 30 ml Amlodipine Besylate (Norvasc -) 10 mg GT DAILY [facility] Last Admin: 11/26/18 09:16 Dose: 10 mg Artificial Tears (Artificial Tears) 1 drop OU TID [facility] Last Admin: 11/27/18 06:13 Dose: 1 drop Aspirin (Asa -) 81 mg GT DAILY [facility] Last Admin: 11/26/18 09:16 Dose: 81 mg Bacitracin (Bacitracin -) 1 applic TP DAILY [facility] Last Admin: 11/26/18 10:40 Dose: 1 applic Bacitracin (Bacitracin -) 1 applic TP DAILY [facility] Last Admin: 11/26/18 10:00 Dose: 1 applic Bisacodyl (Dulcolax Suppository -) 10 mg [place] DAILY PRN PRN Reason: CONSTIPATION Glycerin (Glycerin Suppository Adult -) 1 each RC DAILY [facility] Last Admin: 11/26/18 21:28 Dose: 1 each Heparin Sodium (Porcine) (Heparin -) 5,000 unit SQ TID [facility] Last Admin: 11/27/18 06:10 Dose: 5,000 unit Dextrose/Sodium Chloride (D5-1/2ns -) 1,000 mls @ 75 mls/hr IV ASDIR [facility] Last Admin: 11/26/18 10:39 Dose: 75 mls/hr Levothyroxine Sodium (Synthroid -) 50 mcg GT Q2D@0700 [facility] Last Admin: 11/27/18 06:10 Dose: 50 mcg Memantine (Namenda -) 10 mg PO BID [facility] Last Admin: 11/26/18 21:57 Dose: 10 mg Polyethylene Glycol (Miralax (For Daily Use) -) 17 gm PEG BID [facility] Last Admin: 11/26/18 21:57 Dose: 17 gm Senna (Senna Oral Solution -) 8.8 mg PEG HS [facility] Last Admin: 11/26/18 21:28 Dose: 8.8 mg Thiamine HCl (Vitamin B1 -) 100 mg PO HS [facility] Last Admin: 11/26/18 21:57 Dose: 100 mg a/p abnormal lfts worsening anemia consider GI evaluation s/p 7 days of zosyn- d/c 11/23 fecal impaction- s/p disimpaction-now having bowel movements dementia small sacral ulcer- local care Problem List - Problems (1) Leukocytosis Code(s): D72.829 - ELEVATED WHITE BLOOD CELL COUNT, UNSPECIFIED Qualifiers: Leukocytosis type: unspecified Qualified Code(s): D72.829 - Elevated white blood cell count, unspecified (2) LFT elevation Code(s): R94.5 - ABNORMAL RESULTS OF LIVER FUNCTION STUDIES
[2018-11-27 08:51] LABS: ALBUMIN 1.5 g/dl (3.4-5.0); BILIRUBIN,DIRECT 0.1 mg/dL (0.0-0.2); BILIRUBIN,TOTAL 0.2 mg/dL (0.2-1); BLOOD UREA NITROGEN 38.3 mg/dL (7-18); CALCIUM 7.7 mg/dL (8.5-10.1); CREATININE 0.7 mg/dL (0.55-1.3); POTASSIUM 3.8 mmol/L (3.5-5.1)
[2018-11-27 08:53] LABS: PLATELET COUNT 377 K/MM3 (134-434)
[2018-11-27] MEDS: amLODIPine BESYLATE 10 MG TABLET (FP) GT SCH (10:38)
[2018-11-27] MEDS: MEMANTINE HCL 10 MG TABLET (FP) PO SCH ×2 (10:38→22:04)
[2018-11-27] MEDS: BACITRACIN 15 GM TUBE TOPICAL OINTMENT TP SCH ×2 (10:38→10:40)
[2018-11-27] MEDS: ASPIRIN 81 MG CHEWABLE TABLETS GT SCH (10:38)
[2018-11-27] MEDS: POLYETHYLENE GLYCOL 3350 119 GM BTL PEG SCH ×2 (11:31→22:04)
--- NOTE | 2018-11-27 11:53 | CON.GI ---
Consult Consult Specialty:: GI Referred by:: Rio Reason for Consultation:: Elevated liver chemistries - History of Present Illness History of Present Illness: 78 y.o. woman with advanced dementia, Parkinson's, decubitus ulcer, on tube feedings, found to have elevated liver chemistries: CMP Sodium 144 mmol/L (136-145) 11/27/18 07:19 Potassium 3.8 mmol/L (3.5-5.1) 11/27/18 07:19 Chloride 111 mmol/L (98-107) H 11/27/18 07:19 Carbon Dioxide 28 mmol/L (21-32) 11/27/18 07:19 Anion Gap 5 MMOL/L (8-16) L 11/27/18 07:19 BUN 38.3 mg/dL (7-18) H 11/27/18 07:19 Creatinine 0.7 mg/dL (0.55-1.3) 11/27/18 07:19 Est GFR (CKD-EPI)AfAm 96.86 11/27/18 07:19 Est GFR (CKD-EPI)NonAf 83.57 11/27/18 07:19 POC Glucometer 133 UNITS (80-120) 11/22/18 16:21 Random Glucose 112 mg/dL (74-106) H 11/27/18 07:19 Lactic Acid 1.2 mmol/L (0.4-2.0) 11/17/18 07:33 Calcium 7.7 mg/dL (8.5-10.1) L 11/27/18 07:19 Phosphorus 4.3 mg/dL (2.5-4.9) 11/23/18 06:23 Magnesium 2.8 mg/dL (1.8-2.4) H 11/23/18 06:23 Iron 33 ug/dL (27-139) 11/25/18 21:45 TIBC 185 ug/dL (250-450) L 11/25/18 21:45 Iron Saturation 18 % (15-55) 11/25/18 21:45 Unsaturated IBC 152 ug/dL (118-369) 11/25/18 21:45 Ferritin 344.7 ng/ml (8-388) 11/27/18 07:19 Total Bilirubin 0.2 mg/dL (0.2-1) 11/27/18 07:19 Direct Bilirubin 0.1 mg/dL (0.0-0.2) 11/27/18 07:19 AST 121 U/L (15-37) H 11/27/18 07:19 ALT 143 U/L (13-61) H 11/27/18 07:19 Alkaline Phosphatase 173 U/L (45-117) H 11/27/18 07:19 Ammonia 22.70 umol/L (11-32) 11/26/18 06:28 Creatine Kinase 300 U/L (26-192) H 11/19/18 06:34 Creatine Kinase Index 0.5 % (0.0-5.0) 11/19/18 06:34 CK-MB (CK-2) 1.5 ng/mL (0.5-3.6) 11/19/18 06:34 Troponin I < 0.02 ng/ml (0.00-0.05) 11/17/18 07:33 C-Reactive Protein 3.8 MG/DL (0.00-0.3) H 11/26/18 06:28 Total Protein 6.0 g/dl (6.4-8.2) L 11/27/18 07:19 Albumin 1.5 g/dl (3.4-5.0) L 11/27/18 07:19 Triglycerides 69 mg/dL (0-150) 11/27/18 07:19 Cholesterol 117 mg/dL (50-200) 11/27/18 07:19 Total LDL Cholesterol 85 mg/dL (5-100) 11/27/18 07:19 HDL Cholesterol 26 mg/dL (40-60) L 11/27/18 07:19 Lipase 140 U/L (73-393) 11/17/18 01:10 TSH 5.14 uIU/ml (0.358-3.74) H 11/16/18 16:12 She had a recent noncontrast CT and a suboptimal RUQ sonogram; neither showed any obvious liver mass or biliary tract disease. 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, Parkinson's Cardio/Vascular: Yes: HTN ...: No - Past Surgical History Past Surgical History: Yes: None Additional Surgical History: Gtube - Alcohol/Substance Use Hx Alcohol Use: No History of Substance Use: reports: None - Smoking History Smoking history: Never smoked Have you smoked in the past 12 months: No - Social History Usual Living Arrangement: With Child ADL: Family Assistance History of Recent Travel: No Home Medications - Allergies Allergies/Adverse Reactions: Allergies Allergy/AdvReac Type Severity Reaction Status Date / Time strawberry Allergy Mild Hives Verified 11/16/18 16:35 tomato Allergy Mild Hives Verified 11/16/18 16:35 divalproex sodium Allergy Verified 11/16/18 16:35 [From Depakote] lisinopril Allergy Verified 11/16/18 16:35 No Known Drug Allergies Allergy Verified 11/16/18 16:35 quetiapine [From Seroquel] Allergy Verified 11/16/18 16:35 - Home Medications Home Medications: Ambulatory Orders Aspirin [ASA -] 81 mg GT DAILY 04/17/17 Atorvastatin Ca [Lipitor] 40 mg GT HS 04/17/17 Levothyroxine [Synthroid -] 50 mcg GT ASDIR 04/17/17 Memantine HCl [Namenda Xr] 28 mg GT DAILY 04/17/17 Polyethylene Glycol 3350 [Miralax 119 gm Btl -] 17 g GT PRN PRN 06/17/18 Polyvinyl Alcohol [Artificial Tears] 1 drop OU TID #1 drops 07/28/18 Amlodipine Besylate [Norvasc -] 10 mg GT DAILY 11/16/18 Family Disease History - Family Disease History Family Disease History: Other: Daughter (HTN) Physical Exam-GI Vital Signs: Vital Signs Temperature 99.1 F 11/27/18 06:00 Pulse Rate 92 H 11/27/18 06:00 Respiratory Rate 18 11/27/18 06:00 Blood Pressure 124/70 11/27/18 06:00 O2 Sat by Pulse Oximetry (%) 98 11/26/18 21:00 Gastrointestinal Inspection: Yes: Other (Functioning G tube in place.) Labs: CBC, BMP 11/27/18 07:19 11/27/18 07:19 INR, PTT INR 1.05 (0.83-1.09) 11/27/18 07:19 Imaging - Results Cat Scan: Report Reviewed, Image Reviewed Ultrasound: Report Reviewed, Image Reviewed Problem List - Problems (1) LFT elevation Code(s): R94.5 - ABNORMAL RESULTS OF LIVER FUNCTION STUDIES (2) Transaminitis Code(s): R74.0 - NONSPEC ELEV OF LEVELS OF TRANSAMNS & LACTIC ACID DEHYDRGNSE Assessment/Plan Pt has evidence of severe malnutrition, with an albumin of 1.5. An alternative possibility would be that she has cirrhosis as the cause of hypoalbuminemia, but given her platelet count of roughly 400,000 advanced liver disease is unlikely. She has an anemia of chronic disease and may even have an occult malignancy, but I am not in favor of subjecting this woman to invasive testing to look for cancer. It is also possible if not likely that the elevated AST and ALT were secondary to medications, either antibiotics or anticonvulsants. Would continue to monitor them. Also would want to know how much tube feeding she was getting at home, as her very low albumin suggests she was not getting enough.
[2018-11-27] MEDS ORDERED: PT OWN MED DRAWER 7, Y5N ONE (13:23)
[2018-11-27] MEDS: GLYCERIN 1 RECTAL SUPPOSITORY, ADULT RC SCH (14:03)
[2018-11-27 16:11] VITALS: BMI 23.8
--- NOTE | 2018-11-27 18:05 | PN ---
Progress Note (short form) - Note Progress Note: Patient is lying in bed with no acute distress. Vital Signs Temperature 99.3 F 11/27/18 14:00 Pulse Rate 85 11/27/18 14:00 Respiratory Rate 19 11/27/18 14:00 Blood Pressure 131/62 11/27/18 14:00 O2 Sat by Pulse Oximetry (%) 94 L 11/27/18 09:00 GEN:Lying in bed, non verbal Eyes: Conjunctiva Clear, EOM Intact, PERRL. HENT: Atraumatic,NC Cardiovascular: S1, S2 positive, RRR. Respiratory: decreased BS BL Gastrointestinal: positive for (PEG tube in place LUQ clean,dry, no erythema) SKIN: decubitus Ulcer (presented from home with Sacral decubitus stage 3-2x2cm, non purulent, clean, dry) Neurological:Non verbal, contracted Psychiatric: nonverbal Extremeties: trace edema of the legs, below ankles due to gravity. CBCD WBC 12.4 K/mm3 (4.0-10.0) H 11/27/18 07:19 RBC 2.71 M/mm3 (3.60-5.2) L 11/27/18 07:19 Hgb 7.5 GM/dL (10.7-15.3) L 11/27/18 07:19 Hct 23.5 % (32.4-45.2) L 11/27/18 07:19 MCV 86.5 fl (80-96) 11/27/18 07:19 MCHC 31.8 g/dl (32.0-36.0) L 11/27/18 07:19 RDW 19.6 % (11.6-15.6) H 11/27/18 07:19 Plt Count 377 K/MM3 (134-434) 11/27/18 07:19 MPV 8.3 fl (7.5-11.1) 11/27/18 07:19 CMP Sodium 144 mmol/L (136-145) 11/27/18 07:19 Potassium 3.8 mmol/L (3.5-5.1) 11/27/18 07:19 Chloride 111 mmol/L (98-107) H 11/27/18 07:19 Carbon Dioxide 28 mmol/L (21-32) 11/27/18 07:19 Anion Gap 5 MMOL/L (8-16) L 11/27/18 07:19 BUN 38.3 mg/dL (7-18) H 11/27/18 07:19 Creatinine 0.7 mg/dL (0.55-1.3) 11/27/18 07:19 Random Glucose 112 mg/dL (74-106) H 11/27/18 07:19 Calcium 7.7 mg/dL (8.5-10.1) L 11/27/18 07:19 Total Bilirubin 0.2 mg/dL (0.2-1) 11/27/18 07:19 AST 121 U/L (15-37) H 11/27/18 07:19 ALT 143 U/L (13-61) H 11/27/18 07:19 Alkaline Phosphatase 173 U/L (45-117) H 11/27/18 07:19 Total Protein 6.0 g/dl (6.4-8.2) L 11/27/18 07:19 Albumin 1.5 g/dl (3.4-5.0) L 11/27/18 07:19 CARDIAC ENZYMES Creatine Kinase 300 U/L (26-192) H 11/19/18 06:34 Troponin I < 0.02 ng/ml (0.00-0.05) 11/17/18 07:33 Current Medications Generic Name Dose Route Start Last Admin Trade Name Freq PRN Reason Stop Dose Admin Amino Acids 30 ml 11/19/18 08:00 11/27/18 17:29 Prosource No Carb Liquid Pkt PO 30 ml BID@0800,1730 NABIL Administration Amlodipine Besylate 10 mg 11/17/18 10:00 11/27/18 10:38 Norvasc - GT 10 mg DAILY NABIL Administration Artificial Tears 1 drop 11/17/18 06:00 11/27/18 13:34 Artificial Tears OU 1 drop TID NABIL Administration Aspirin 81 mg 11/17/18 10:00 11/27/18 10:38 Asa - GT 81 mg DAILY NABIL Administration Bacitracin 1 applic 11/17/18 12:30 11/27/18 10:38 Bacitracin - TP 1 applic DAILY NABIL Administration Bacitracin 1 applic 11/22/18 19:00 11/27/18 10:40 Bacitracin - TP 1 applic DAILY NABIL Administration Bisacodyl 10 mg 11/21/18 08:28 Dulcolax Suppository - ME DAILY PRN CONSTIPATION Glycerin 1 each 11/20/18 17:00 11/27/18 14:03 Glycerin Suppository Adult - RC 1 each DAILY NABIL Administration Heparin Sodium (Porcine) 5,000 unit 11/24/18 22:00 11/27/18 13:34 Heparin - SQ 5,000 unit TID NABIL Administration Dextrose/Sodium Chloride 1,000 mls @ 75 mls/hr 11/26/18 09:45 11/26/18 10:39 D5-1/2ns - IV 75 mls/hr ASDIR NABIL Administration Levothyroxine Sodium 50 mcg 11/17/18 07:00 11/27/18 06:10 Synthroid - GT 50 mcg Q2D@0700 NABIL Administration Memantine 10 mg 11/18/18 22:00 11/27/18 10:38 Namenda - PO 10 mg BID NABIL Administration Polyethylene Glycol 17 gm 11/19/18 22:00 11/27/18 11:31 Miralax (For Daily Use) - PEG 17 gm BID NABIL Administration Senna 8.8 mg 11/19/18 22:00 11/26/18 21:28 Senna Oral Solution - PEG 8.8 mg HS NABIL Administration Thiamine HCl 100 mg 11/26/18 22:00 11/26/18 21:57 Vitamin B1 - PO 100 mg HS NABIL Administration Home Medications Medication Instructions Recorded Aspirin [ASA -] 81 mg GT DAILY 04/17/17 Atorvastatin Ca [Lipitor] 40 mg GT HS 04/17/17 Levothyroxine [Synthroid -] 50 mcg GT ASDIR 04/17/17 Memantine HCl [Namenda Xr] 28 mg GT DAILY 04/17/17 Polyethylene Glycol 3350 [Miralax 17 g GT PRN PRN 06/17/18 119 gm Btl -] Polyvinyl Alcohol [Artificial 1 drop OU TID #1 drops 07/28/18 Tears] Amlodipine Besylate [Norvasc -] 10 mg GT DAILY 11/16/18 11/21/18 15:00 Blood - Peripheral Venous Blood Culture - Preliminary NO GROWTH OBTAINED AFTER 96 HOURS, INCUBATION TO CONTINUE FOR 1 DAYS. 11/21/18 15:00 Blood - Peripheral Venous Blood Culture - Preliminary NO GROWTH OBTAINED AFTER 96 HOURS, INCUBATION TO CONTINUE FOR 1 DAYS. 11/22/18 18:50 Urine - Urine - Catheterized Urine Culture - Final NO GROWTH OBTAINED 11/22/18 18:50 Urine For Antigen Detection Legionella Antigen - Final 11/22/18 18:50 Urine For Antigen Detection Streptococcus pneumoniae Antigen (M - Final 11/16/18 21:50 Ulcer Gram Stain - Final 11/16/18 21:50 Ulcer Wound Culture - Final Pseudomonas Aeruginosa Escherichia Coli 11/16/18 15:53 Urine - Urine - Catheterized Urine Culture - Final Enterococcus Faecalis ASSESSMENT AND PLAN: Patient is a 78yo female with hx of Parkinson's, dementia, HTN, HLD, anemia, hypothyroidism, decubitus ulcer stage 2, PEG who presented with tremors and was found to have fecal impaction and UTI # Acute Transaminitis : improving, will continue IVF , and continue to hold lipitor. will repeat the level in am , discussed with . presented with 283-->156-->116-->89-->184--> 121 today, will monitor, check the result of US. # Acute mild hypernatremia improved today due to dehydration: will continue IV d51/2NS at 75cc/hr x 1 more liter # UTI: sepsis resolved. possible PNA , off antibiotic now. Discussed with ID , will monitor # Acute dehydration : increase free water in TF . Monitor NA # ROBERT : creatinine is 0.6, BUN 56 due to dehydration , will switch to IV d51/ 2NS x 1 more liter. # SAcral decub stage 2: frequent turning # Constipation with fecal impaction with stercoral proctitis: s/p disimpaction. cont bowel regimen DVT Px : Heparin sq Call the daughter for update on a daily basis [phone] Janae follow the ferritin level, cmp, lipid panel, LFTs, CBC. Visit type - Emergency Visit Emergency Visit: Yes ED Registration Date: 11/16/18 Care time: The patient presented to the Emergency Department on the above date and was hospitalized for further evaluation of their emergent condition. - New Patient This patient is new to me today: No - Critical Care Critical Care patient: No - Discharge Referral Referred to [facility] Med P.C.: No
[2018-11-27] MEDS: THIAMINE HCL 100 MG TABLET (FP) PO SCH (22:04)
[2018-11-27] MEDS: SENNOSIDES 8.8 MG/5 ML BULK BOTTLE PEG SCH (22:04)
[2018-11-28] MEDS: HEPARIN NA (PORCINE) 5,000 UNITS/ML 1ML VIAL SQ SCH ×3 (06:24→21:58)
[2018-11-28] MEDS: ARTIFICIAL TEARS (POLYVINYL ALCOHOL) OPTH DROPS OU SCH ×3 (06:24→21:57)
[2018-11-28] MEDS: DEXTROSE 5%-0.45% SALINE 1,000 ML IV SCH ×3 (06:24→22:00)
[2018-11-28] MEDS: AMINO ACIDS/PROTEIN HYDROLYS 30 ML LIQUID.PKT PO SCH ×2 (08:11→17:20)
[2018-11-28 08:29] LABS: HEMATOCRIT 23.6 % (32.4-45.2); HEMOGLOBIN 7.6 GM/dL (10.7-15.3); MCH 27.5 pg (25.7-33.7); MCHC 32.2 g/dl (32.0-36.0); MEAN CELL VOLUME 85.3 fl (80-96); PLATELET COUNT 350 K/MM3 (134-434); RBC 2.76 M/mm3 (3.60-5.2); RDW 19.8 % (11.6-15.6); WHITE BLOOD COUNT 10.3 K/mm3 (4.0-10.0)
[2018-11-28 09:02] LABS: ALBUMIN 1.3 g/dl (3.4-5.0); BILIRUBIN,TOTAL 0.2 mg/dL (0.2-1); BLOOD UREA NITROGEN 26.4 mg/dL (7-18); CREATININE 0.6 mg/dL (0.55-1.3); POTASSIUM 3.7 mmol/L (3.5-5.1)
[2018-11-28] MEDS: ASPIRIN 81 MG CHEWABLE TABLETS GT SCH (10:10)
[2018-11-28] MEDS: POLYETHYLENE GLYCOL 3350 119 GM BTL PEG SCH ×2 (10:10→21:58)
[2018-11-28] MEDS: MEMANTINE HCL 10 MG TABLET (FP) PO SCH ×2 (10:10→21:58)
[2018-11-28] MEDS: amLODIPine BESYLATE 10 MG TABLET (FP) GT SCH (10:10)
[2018-11-28] MEDS: GLYCERIN 1 RECTAL SUPPOSITORY, ADULT RC SCH (10:12)
[2018-11-28] MEDS: BACITRACIN 15 GM TUBE TOPICAL OINTMENT TP SCH ×2 (10:13→10:14)
--- NOTE | 2018-11-28 16:05 | PN ---
Physical Exam: SUBJECTIVE: Patient seen and examined. No acute events overnight. Pt is nonverbal, daughter was not present at bedside. OBJECTIVE: Vital Signs Period Temp Pulse Resp BP Sys/Torres Pulse Ox Last 24 Hr 97.8 F-100 F 73-90 18-22 136-160/71-85 94-94 GENERAL: The patient is awake, alert, and fully oriented, in no acute distress. No communicaton. HEAD: Normal with no signs of trauma. EYES: PERRL, sclera anicteric, conjunctiva clear. No ptosis. ENT: Ears normal, nares patent, oropharynx clear without exudates, moist mucous membranes. NECK: Trachea midline, full range of motion, supple. LUNGS: Breath sounds equal, clear to auscultation bilaterally, no wheezes, no crackles, no accessory muscle use. HEART: Regular rate and rhythm, S1, S2 without murmur, rub or gallop. ABDOMEN: PEG tube intact with no erythema or purulent discharge. Soft, nontender , nondistended, normoactive bowel sounds, no guarding, no rebound, no hepatosplenomegaly, no masses. EXTREMITIES: Contracted, no edema. NEUROLOGICAL: Gait not observed. PSYCH: Unable to assess due to patieht's mental status SKIN: Warm, dry, normal turgor, no rashes or lesions noted Laboratory Results - last 24 hr 11/28/18 11/28/18 07:52 08:00 WBC 10.3 H RBC 2.76 L Hgb 7.6 L Hct 23.6 L MCV 85.3 MCH 27.5 MCHC 32.2 RDW 19.8 H Plt Count 350 MPV 8.0 Sodium 144 Potassium 3.7 Chloride 110 H Carbon Dioxide 29 Anion Gap 4 L BUN 26.4 H Creatinine 0.6 Est GFR (CKD-EPI)AfAm 101.90 Est GFR (CKD-EPI)NonAf 87.92 Random Glucose 129 H Calcium 8.0 L Total Bilirubin 0.2 AST 120 H ALT 146 H Alkaline Phosphatase 181 H Total Protein 6.0 L Albumin 1.3 L Active Medications Amino Acids (Prosource No Carb Liquid Pkt) 30 ml PO BID@0800,1730 [facility] Last Admin: 11/28/18 08:11 Dose: 30 ml Amlodipine Besylate (Norvasc -) 10 mg GT DAILY [facility] Last Admin: 11/28/18 10:10 Dose: 10 mg Artificial Tears (Artificial Tears) 1 drop OU TID [facility] Last Admin: 11/28/18 15:44 Dose: 1 drop Aspirin (Asa -) 81 mg GT DAILY [facility] Last Admin: 11/28/18 10:10 Dose: 81 mg Bacitracin (Bacitracin -) 1 applic TP DAILY [facility] Last Admin: 11/28/18 10:13 Dose: 1 applic Bacitracin (Bacitracin -) 1 applic TP DAILY [facility] Last Admin: 11/28/18 10:14 Dose: 1 applic Bisacodyl (Dulcolax Suppository -) 10 mg SD DAILY PRN PRN Reason: CONSTIPATION Glycerin (Glycerin Suppository Adult -) 1 each RC DAILY [facility] Last Admin: 11/28/18 10:12 Dose: 1 each Heparin Sodium (Porcine) (Heparin -) 5,000 unit SQ TID [facility] Last Admin: 11/28/18 15:44 Dose: 5,000 unit Dextrose/Sodium Chloride (D5-1/2ns -) 1,000 mls @ 75 mls/hr IV ASDIR [facility] Last Admin: 11/28/18 10:09 Dose: 75 mls/hr Levothyroxine Sodium (Synthroid -) 50 mcg GT Q2D@0700 [facility] Last Admin: 11/27/18 06:10 Dose: 50 mcg Memantine (Namenda -) 10 mg PO BID [facility] Last Admin: 11/28/18 10:10 Dose: 10 mg Polyethylene Glycol (Miralax (For Daily Use) -) 17 gm PEG BID [facility] Last Admin: 11/28/18 10:10 Dose: 17 gm Senna (Senna Oral Solution -) 8.8 mg PEG HS [facility] Last Admin: 11/27/18 22:04 Dose: 8.8 mg Thiamine HCl (Vitamin B1 -) 100 mg PO HS [facility] Last Admin: 11/27/18 22:04 Dose: 100 mg ASSESSMENT/PLAN: Pt is a 78 y/o F with PMHx of Parkinson's, Alzheimer's, HTN, HLD, hypothyroidism , seizure disorder, decubitus ulcer, s/p PEG tube placement, chronic arm tremors , brought from home by daughter, (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 #UTI Completed 7 day course of antibiotics, dc the Zosyn WBC 17 on admission. WBC today 12.4 11/28/2018. Will continue to trend and follow. CT of abd and chest---> Density posteriorly at the right base, possibly representing infiltrate or atelectasis. Small right pleural effusion. #Dehydration Increase free water in TF Add IVF D5 0.45% NS at 75ml/hr Continue to monitor BMP #Transaminitis AST/ALT trending downwards (184-->120, 176-->146) US abd and CT abd showed no pathology Cont to monitor LFTs #Decubitus ulcer Wound cx --> Pseudomonas Aeruginosa, Ucx Group D Strep, or Enterococcus. Both sensitive to Zosyn. Blood cx definitively negative Frequent turning Wound care and ID on board and determined ulcer is not source of infection, dc abx #Dehydration Increase free water in TF Monitor sodium #AMS Per daughter, gradually increasing somnolence over past 2 weeks Could be in setting of worsening parkinson's/Alzheimers- continue mematine Neuro on board Dr Keene #Anemia of Chronic Disease H/H 7.5/23.5, continue to trend CBC. Transfuse < 7.0 Stool occult NEGATIVE #Parkinson's/Alzheimer's Cont Namenda #HTN Cont amlodipine 10mg #HLD Hold statins in setting of elevated transaminases #Hypothyroidism TSH elevated 5.14 In setting of acute possible infectious process Cont home meds synthroid 50mcg Q2D #Seizure disorder Per neurology: Observe off valproic acid as may increase LFTs (also antibiotics, i.e Zosyn) #RLE edema Duplex US- shows rice's cyst #FEN No Standing fluid Monitor Electrolytes Jevity 1.5 ml/hr x 24 hours with 50ml water flush each hour of feeding #DVT ppx: Lovenox subq Visit type - Emergency Visit Emergency Visit: No - New Patient This patient is new to me today: No - Critical Care Critical Care patient: No
--- NOTE | 2018-11-28 18:42 | PN ---
Teaching Attending Note Name of Resident: Annette Laboy ATTENDING PHYSICIAN STATEMENT I saw and evaluated the patient. I reviewed the resident's note and discussed the case with the resident. I agree with the resident's findings and plan as documented. SUBJECTIVE: Patient is lying in bed with no acute distress. no fever or chills. OBJECTIVE: Vital Signs Temperature 97.8 F 11/28/18 15:46 Pulse Rate 80 11/28/18 15:46 Respiratory Rate 22 H 11/28/18 15:46 Blood Pressure 140/78 11/28/18 15:46 O2 Sat by Pulse Oximetry (%) 94 L 11/28/18 09:00 GEN:Lying in bed, non verbal Eyes: Conjunctiva Clear, EOM Intact, PERRL. HENT: Atraumatic,NC Cardiovascular: S1, S2 positive, RRR. Respiratory: decreased BS BL Gastrointestinal: positive for (PEG tube in place LUQ clean,dry, no erythema) SKIN: decubitus Ulcer (presented from home with Sacral decubitus stage 3-2x2cm, non purulent, clean, dry) Neurological:Non verbal, contracted Psychiatric: nonverbal Extremeties: trace edema of the legs, below ankles due to gravity. CBCD WBC 10.3 K/mm3 (4.0-10.0) H 11/28/18 08:00 RBC 2.76 M/mm3 (3.60-5.2) L 11/28/18 08:00 Hgb 7.6 GM/dL (10.7-15.3) L 11/28/18 08:00 Hct 23.6 % (32.4-45.2) L 11/28/18 08:00 MCV 85.3 fl (80-96) 11/28/18 08:00 MCHC 32.2 g/dl (32.0-36.0) 11/28/18 08:00 RDW 19.8 % (11.6-15.6) H 11/28/18 08:00 Plt Count 350 K/MM3 (134-434) 11/28/18 08:00 MPV 8.0 fl (7.5-11.1) 11/28/18 08:00 CMP Sodium 144 mmol/L (136-145) 11/28/18 07:52 Potassium 3.7 mmol/L (3.5-5.1) 11/28/18 07:52 Chloride 110 mmol/L (98-107) H 11/28/18 07:52 Carbon Dioxide 29 mmol/L (21-32) 11/28/18 07:52 Anion Gap 4 MMOL/L (8-16) L 11/28/18 07:52 BUN 26.4 mg/dL (7-18) H 11/28/18 07:52 Creatinine 0.6 mg/dL (0.55-1.3) 11/28/18 07:52 Random Glucose 129 mg/dL (74-106) H 11/28/18 07:52 Calcium 8.0 mg/dL (8.5-10.1) L 11/28/18 07:52 Total Bilirubin 0.2 mg/dL (0.2-1) 11/28/18 07:52 AST 120 U/L (15-37) H 11/28/18 07:52 ALT 146 U/L (13-61) H 11/28/18 07:52 Alkaline Phosphatase 181 U/L (45-117) H 11/28/18 07:52 Total Protein 6.0 g/dl (6.4-8.2) L 11/28/18 07:52 Albumin 1.3 g/dl (3.4-5.0) L 11/28/18 07:52 CARDIAC ENZYMES Creatine Kinase 300 U/L (26-192) H 11/19/18 06:34 Troponin I < 0.02 ng/ml (0.00-0.05) 11/17/18 07:33 Current Medications Generic Name Dose Route Start Last Admin Trade Name Rema PRN Reason Stop Dose Admin Amino Acids 30 ml 11/19/18 08:00 11/28/18 17:20 Prosource No Carb Liquid Pkt PO 30 ml BID@0800,1730 NABIL Administration Amlodipine Besylate 10 mg 11/17/18 10:00 11/28/18 10:10 Norvasc - GT 10 mg DAILY NABIL Administration Artificial Tears 1 drop 11/17/18 06:00 11/28/18 15:44 Artificial Tears OU 1 drop TID NABIL Administration Aspirin 81 mg 11/17/18 10:00 11/28/18 10:10 Asa - GT 81 mg DAILY NABIL Administration Bacitracin 1 applic 11/17/18 12:30 11/28/18 10:13 Bacitracin - TP 1 applic DAILY NABIL Administration Bacitracin 1 applic 11/22/18 19:00 11/28/18 10:14 Bacitracin - TP 1 applic DAILY NABIL Administration Bisacodyl 10 mg 11/21/18 08:28 Dulcolax Suppository - SD DAILY PRN CONSTIPATION Glycerin 1 each 11/20/18 17:00 11/28/18 10:12 Glycerin Suppository Adult - RC 1 each DAILY NABIL Administration Heparin Sodium (Porcine) 5,000 unit 11/24/18 22:00 11/28/18 15:44 Heparin - SQ 5,000 unit TID NABIL Administration Dextrose/Sodium Chloride 1,000 mls @ 75 mls/hr 11/26/18 09:45 11/28/18 10:09 D5-1/2ns - IV 75 mls/hr ASDIR NABIL Administration Levothyroxine Sodium 50 mcg 11/17/18 07:00 11/27/18 06:10 Synthroid - GT 50 mcg Q2D@0700 NABIL Administration Memantine 10 mg 11/18/18 22:00 11/28/18 10:10 Namenda - PO 10 mg BID NABIL Administration Polyethylene Glycol 17 gm 11/19/18 22:00 11/28/18 10:10 Miralax (For Daily Use) - PEG 17 gm BID NABIL Administration Senna 8.8 mg 11/19/18 22:00 11/27/18 22:04 Senna Oral Solution - PEG 8.8 mg HS NABIL Administration Thiamine HCl 100 mg 11/26/18 22:00 11/27/18 22:04 Vitamin B1 - PO 100 mg HS NABIL Administration Home Medications Medication Instructions Recorded Aspirin [ASA -] 81 mg GT DAILY 04/17/17 Atorvastatin Ca [Lipitor] 40 mg GT HS 04/17/17 Levothyroxine [Synthroid -] 50 mcg GT ASDIR 04/17/17 Memantine HCl [Namenda Xr] 28 mg GT DAILY 04/17/17 Polyethylene Glycol 3350 [Miralax 17 g GT PRN PRN 06/17/18 119 gm Btl -] Polyvinyl Alcohol [Artificial 1 drop OU TID #1 drops 07/28/18 Tears] Amlodipine Besylate [Norvasc -] 10 mg GT DAILY 11/16/18 Bacitracin - [Bacitracin Topical 1 applic TP DAILY #1 applic 11/28/18 Ointment -] ASSESSMENT AND PLAN: Patient is a 78yo female with hx of Parkinson's, dementia, HTN, HLD, anemia, hypothyroidism, decubitus ulcer stage 2, PEG who presented with tremors and was found to have fecal impaction and UTI # Acute Transaminitis : improving, will continue IVF , and continue to hold lipitor. will repeat the level in am , discussed with . presented with 283-->156-->116-->89-->184--> 121-->120 today, will monitor, US of abdomen is normal, CT of abdomen and pelvis with IV contrast ordered. # Acute mild hypernatremia improved today due to dehydration: will continue IV d51/2NS at 75cc/hr x 1 more liter # UTI: sepsis resolved. possible PNA , off antibiotic now. Discussed with ID , will monitor # Acute dehydration : increase free water in TF . Monitor NA # ROBERT : creatinine is 0.6, BUN 56 due to dehydration , will switch to IV d51/ 2NS x 1 more liter. # SAcral decub stage 2: frequent turning # Constipation with fecal impaction with stercoral proctitis: s/p disimpaction. cont bowel regimen DVT Px : Heparin sq Call the daughter for update on a daily basis [phone] Janae follow the ferritin level, cmp, lipid panel, LFTs, CBC.
[2018-11-28] MEDS ORDERED: PT OWN MED DRAWER 7, Y5N ONE (21:21)
[2018-11-28] MEDS: SENNOSIDES 8.8 MG/5 ML BULK BOTTLE PEG SCH (21:59)
[2018-11-28] MEDS: THIAMINE HCL 100 MG TABLET (FP) PO SCH (21:59)
[2018-11-29] MEDS: HEPARIN NA (PORCINE) 5,000 UNITS/ML 1ML VIAL SQ SCH ×3 (06:14→21:24)
[2018-11-29] MEDS: ARTIFICIAL TEARS (POLYVINYL ALCOHOL) OPTH DROPS OU SCH ×3 (06:14→21:24)
[2018-11-29] MEDS: LEVOTHYROXINE NA 50 MCG TABLET (FP) GT SCH (06:14)
[2018-11-29 07:23] LABS: ALBUMIN 1.5 g/dl (3.4-5.0); BILIRUBIN,TOTAL 0.3 mg/dL (0.2-1); BLOOD UREA NITROGEN 19.2 mg/dL (7-18); CALCIUM 7.9 mg/dL (8.5-10.1); CREATININE 0.6 mg/dL (0.55-1.3); POTASSIUM 4.3 mmol/L (3.5-5.1)
[2018-11-29] MEDS: AMINO ACIDS/PROTEIN HYDROLYS 30 ML LIQUID.PKT PO SCH ×2 (08:33→17:30)
[2018-11-29 10:25] LABS: BASO % 0.8 % (0-2.0); EOS % 0.9 % (0-4.5); HEMATOCRIT 24.8 % (32.4-45.2); HEMOGLOBIN 7.8 GM/dL (10.7-15.3); LYMPH % 9.6 % (8-40); MCH 27.5 pg (25.7-33.7); MCHC 31.4 g/dl (32.0-36.0); MEAN CELL VOLUME 87.7 fl (80-96); MEAN PLT VOLUME 8.6 fl (7.5-11.1); MONO % 7.7 % (3.8-10.2); PLATELET COUNT 340 K/MM3 (134-434); RBC 2.83 M/mm3 (3.60-5.2); RDW 19.9 % (11.6-15.6); WHITE BLOOD COUNT 11.6 K/mm3 (4.0-10.0)
[2018-11-29] MEDS: amLODIPine BESYLATE 10 MG TABLET (FP) GT SCH (10:25)
[2018-11-29] MEDS: ASPIRIN 81 MG CHEWABLE TABLETS GT SCH (10:25)
[2018-11-29] MEDS: BACITRACIN 15 GM TUBE TOPICAL OINTMENT TP SCH ×2 (10:26→10:32)
[2018-11-29] MEDS: DEXTROSE 5%-0.45% SALINE 1,000 ML IV SCH ×2 (10:26→21:29)
[2018-11-29] MEDS: MEMANTINE HCL 10 MG TABLET (FP) PO SCH ×2 (10:32→21:25)
[2018-11-29] MEDS: POLYETHYLENE GLYCOL 3350 119 GM BTL PEG SCH ×2 (10:32→21:25)
[2018-11-29] MEDS: GLYCERIN 1 RECTAL SUPPOSITORY, ADULT RC SCH (11:22)
--- NOTE | 2018-11-29 16:58 | PN ---
Progress Note (short form) - Note Progress Note: Patient has no new complain, lying in bed with no acute distress. Vital Signs Temperature 98.7 F 11/29/18 15:31 Pulse Rate 79 11/29/18 15:31 Respiratory Rate 20 11/29/18 10:00 Blood Pressure 154/67 11/29/18 15:31 O2 Sat by Pulse Oximetry (%) 98 11/29/18 09:00 GEN:Lying in bed, non verbal Eyes: Conjunctiva Clear, EOM Intact, PERRL. HENT: Atraumatic,NC Cardiovascular: S1, S2 positive, RRR. Respiratory: decreased BS BL Gastrointestinal: positive for (PEG tube in place LUQ clean,dry, no erythema) SKIN: decubitus Ulcer (presented from home with Sacral decubitus stage 3-2x2cm, non purulent, clean, dry) Neurological:Non verbal, contracted Psychiatric: nonverbal Extremeties: trace edema of the legs, below ankles due to gravity. CBCD WBC 11.6 K/mm3 (4.0-10.0) H 11/29/18 06:00 RBC 2.83 M/mm3 (3.60-5.2) L 11/29/18 06:00 Hgb 7.8 GM/dL (10.7-15.3) L 11/29/18 06:00 Hct 24.8 % (32.4-45.2) L 11/29/18 06:00 MCV 87.7 fl (80-96) 11/29/18 06:00 MCHC 31.4 g/dl (32.0-36.0) L 11/29/18 06:00 RDW 19.9 % (11.6-15.6) H 11/29/18 06:00 Plt Count 340 K/MM3 (134-434) 11/29/18 06:00 MPV 8.6 fl (7.5-11.1) 11/29/18 06:00 CMP Sodium 143 mmol/L (136-145) 11/29/18 06:06 Potassium 4.3 mmol/L (3.5-5.1) 11/29/18 06:06 Chloride 108 mmol/L (98-107) H 11/29/18 06:06 Carbon Dioxide 26 mmol/L (21-32) 11/29/18 06:06 Anion Gap 8 MMOL/L (8-16) 11/29/18 06:06 BUN 19.2 mg/dL (7-18) H 11/29/18 06:06 Creatinine 0.6 mg/dL (0.55-1.3) 11/29/18 06:06 Random Glucose 114 mg/dL (74-106) H 11/29/18 06:06 Calcium 7.9 mg/dL (8.5-10.1) L 11/29/18 06:06 Total Bilirubin 0.3 mg/dL (0.2-1) 11/29/18 06:06 AST 101 U/L (15-37) H 11/29/18 06:06 ALT 134 U/L (13-61) H 11/29/18 06:06 Alkaline Phosphatase 184 U/L (45-117) H 11/29/18 06:06 Total Protein 6.0 g/dl (6.4-8.2) L 11/29/18 06:06 Albumin 1.5 g/dl (3.4-5.0) L 11/29/18 06:06 CARDIAC ENZYMES Creatine Kinase 300 U/L (26-192) H 11/19/18 06:34 Troponin I < 0.02 ng/ml (0.00-0.05) 11/17/18 07:33 Current Medications Generic Name Dose Route Start Last Admin Trade Name Desmondq PRN Reason Stop Dose Admin Amino Acids 30 ml 11/19/18 08:00 11/29/18 08:33 Prosource No Carb Liquid Pkt PO 30 ml BID@0800,1730 NABIL Administration Amlodipine Besylate 10 mg 11/17/18 10:00 11/29/18 10:25 Norvasc - GT 10 mg DAILY NABIL Administration Artificial Tears 1 drop 11/17/18 06:00 11/29/18 13:24 Artificial Tears OU 1 drop TID NABIL Administration Aspirin 81 mg 11/17/18 10:00 11/29/18 10:25 Asa - GT 81 mg DAILY NABIL Administration Bacitracin 1 applic 11/17/18 12:30 11/29/18 10:26 Bacitracin - TP Not Given DAILY NABIL Bacitracin 1 applic 11/22/18 19:00 11/29/18 10:32 Bacitracin - TP Not Given DAILY NABIL Bisacodyl 10 mg 11/21/18 08:28 Dulcolax Suppository - MO DAILY PRN CONSTIPATION Glycerin 1 each 11/20/18 17:00 11/29/18 11:22 Glycerin Suppository Adult - RC 1 each DAILY NABIL Administration Heparin Sodium (Porcine) 5,000 unit 11/24/18 22:00 11/29/18 13:25 Heparin - SQ 5,000 unit TID NABIL Administration Dextrose/Sodium Chloride 1,000 mls @ 75 mls/hr 11/26/18 09:45 11/29/18 10:26 D5-1/2ns - IV 75 mls/hr ASDIR NABIL Administration Levothyroxine Sodium 50 mcg 11/17/18 07:00 11/29/18 06:14 Synthroid - GT 50 mcg Q2D@0700 NABIL Administration Memantine 10 mg 11/18/18 22:00 11/29/18 10:32 Namenda - PO 10 mg BID NABIL Administration Polyethylene Glycol 17 gm 11/19/18 22:00 11/29/18 10:32 Miralax (For Daily Use) - PEG 17 gm BID NABIL Administration Senna 8.8 mg 11/19/18 22:00 11/28/18 21:59 Senna Oral Solution - PEG 8.8 mg HS NABIL Administration Thiamine HCl 100 mg 11/26/18 22:00 11/28/18 21:59 Vitamin B1 - PO 100 mg HS NABIL Administration Home Medications Medication Instructions Recorded Aspirin [ASA -] 81 mg GT DAILY 04/17/17 Atorvastatin Ca [Lipitor] 40 mg GT HS 04/17/17 Levothyroxine [Synthroid -] 50 mcg GT ASDIR 04/17/17 Memantine HCl [Namenda Xr] 28 mg GT DAILY 04/17/17 Polyethylene Glycol 3350 [Miralax 17 g GT PRN PRN 06/17/18 119 gm Btl -] Polyvinyl Alcohol [Artificial 1 drop OU TID #1 drops 07/28/18 Tears] Amlodipine Besylate [Norvasc -] 10 mg GT DAILY 11/16/18 Bacitracin - [Bacitracin Topical 1 applic TP DAILY #1 applic 11/28/18 Ointment -] ASSESSMENT AND PLAN: Patient is a 78yo female with hx of Parkinson's, dementia, HTN, HLD, anemia, hypothyroidism, decubitus ulcer stage 2, PEG who presented with tremors and was found to have fecal impaction and UTI # Acute Transaminitis : improving, will continue IVF , and continue to hold lipitor. will repeat the level in am , discussed with . presented with 283-->156-->116-->89-->184--> 121-->101 today, US of abdomen is normal. CT abdomen and pelvis is negative. discussed with the daughter if continues to improve will tx the patient to rehab. in am. # Acute mild hypernatremia improved today due to dehydration: will continue IV d51/2NS at 75cc/hr x 1 more liter # UTI: sepsis resolved. possible PNA , off antibiotic now. # Acute dehydration : increase free water in TF . Monitor NA # ROBERT : creatinine is 0.6, BUN 56 due to dehydration , will switch to IV d51/ 2NS x 1 more liter. # SAcral decub stage 2: frequent turning # Constipation with fecal impaction with stercoral proctitis: s/p disimpaction. prn miralx and dulcolax DVT Px : Heparin sq Call the daughter for update on a daily basis [phone] Janae follow the ferritin level, cmp, lipid panel, LFTs, CBC. Visit type - Emergency Visit Emergency Visit: Yes ED Registration Date: 11/16/18 Care time: The patient presented to the Emergency Department on the above date and was hospitalized for further evaluation of their emergent condition. - New Patient This patient is new to me today: No - Critical Care Critical Care patient: No - Discharge Referral Referred to [facility] No
[2018-11-29] MEDS ORDERED: PT OWN MED DRAWER 7, Y5N ONE (20:45)
[2018-11-29] MEDS: THIAMINE HCL 100 MG TABLET (FP) PO SCH (21:26)
[2018-11-29] MEDS: SENNOSIDES 8.8 MG/5 ML BULK BOTTLE PEG SCH (21:26)
[2018-11-30] MEDS: HEPARIN NA (PORCINE) 5,000 UNITS/ML 1ML VIAL SQ SCH ×2 (05:41→13:48)
[2018-11-30] MEDS: ARTIFICIAL TEARS (POLYVINYL ALCOHOL) OPTH DROPS OU SCH ×2 (05:42→13:47)
[2018-11-30 07:27] LABS: BASO % 0.4 % (0-2.0); EOS % 0.9 % (0-4.5); HEMATOCRIT 25.8 % (32.4-45.2); HEMOGLOBIN 8.2 GM/dL (10.7-15.3); LYMPH % 10.3 % (8-40); MCH 27.7 pg (25.7-33.7); MCHC 31.7 g/dl (32.0-36.0); MEAN CELL VOLUME 87.4 fl (80-96); MEAN PLT VOLUME 8.6 fl (7.5-11.1); NEUT % 81.4 % (42.8-82.8); PLATELET COUNT 301 K/MM3 (134-434); RBC 2.95 M/mm3 (3.60-5.2); RDW 19.7 % (11.6-15.6); WHITE BLOOD COUNT 9.7 K/mm3 (4.0-10.0)
[2018-11-30 07:38] LABS: ALBUMIN 1.5 g/dl (3.4-5.0); BILIRUBIN,TOTAL 0.3 mg/dL (0.2-1); BLOOD UREA NITROGEN 13.1 mg/dL (7-18); CALCIUM 7.8 mg/dL (8.5-10.1); CREATININE 0.6 mg/dL (0.55-1.3)
[2018-11-30] MEDS: AMINO ACIDS/PROTEIN HYDROLYS 30 ML LIQUID.PKT PO SCH (08:33)
[2018-11-30] MEDS: POLYETHYLENE GLYCOL 3350 119 GM BTL PEG SCH (09:46)
[2018-11-30] MEDS: ASPIRIN 81 MG CHEWABLE TABLETS GT SCH (09:46)
[2018-11-30] MEDS: MEMANTINE HCL 10 MG TABLET (FP) PO SCH (09:46)
[2018-11-30] MEDS: amLODIPine BESYLATE 10 MG TABLET (FP) GT SCH (09:46)
[2018-11-30] MEDS: BACITRACIN 15 GM TUBE TOPICAL OINTMENT TP SCH ×2 (09:46→09:47)
[2018-11-30] MEDS: GLYCERIN 1 RECTAL SUPPOSITORY, ADULT RC SCH (09:47)
[2018-11-30] MEDS: DEXTROSE 5%-0.45% SALINE 1,000 ML IV SCH (09:59)
[2018-11-30] MEDS ORDERED: ZINC SULFATE 220 MG CAPSULE (FP) PO SCH (11:30)
[2018-11-30] MEDS ORDERED: ASCORBIC ACID 250 MG TABLET (FP) PO SCH (11:30)
--- NOTE | 2018-11-30 11:36 | DS ---
Physical Exam: SUBJECTIVE: Patient seen this morning, no acute events overnight. Patient in bed eyes open to palpation. OBJECTIVE: Vital Signs Period Temp Pulse Resp BP Sys/Torres Pulse Ox Last 24 Hr 97.9 F-98.9 F 75-88 22-22 144-157/67-114 97 PHYSICAL EXAM GENERAL: The patient is awake HEAD: Normal with no signs of trauma. LUNGS: Breath sounds equal, clear to auscultation bilaterally, no wheezes, no crackles, no accessory muscle use. HEART: Regular rate and rhythm, S1, S2 without murmur, rub or gallop. ABDOMEN: Soft, nontender, nondistended, normoactive bowel sounds, no guarding, no rebound, no hepatosplenomegaly, no masses. PEg tube in place EXTREMITIES: 2+ pulses, warm, well-perfused, no edema. SKIN: large stage 4 clean sacral ulcer, not seen today discussed state of ulcer with staff LABS Laboratory Results - last 24 hr 11/30/18 11/30/18 06:10 06:10 WBC 9.7 RBC 2.95 L Hgb 8.2 L Hct 25.8 L MCV 87.4 MCH 27.7 MCHC 31.7 L RDW 19.7 H Plt Count 301 MPV 8.6 Absolute Neuts (auto) 7.9 Neutrophils % 81.4 Lymphocytes % 10.3 Monocytes % 7.0 Eosinophils % 0.9 Basophils % 0.4 Nucleated RBC % 0 Sodium 140 Potassium 4.0 Chloride 108 H Carbon Dioxide 26 Anion Gap 6 L BUN 13.1 Creatinine 0.6 Est GFR (CKD-EPI)AfAm 101.90 Est GFR (CKD-EPI)NonAf 87.92 Random Glucose 123 H Calcium 7.8 L Total Bilirubin 0.3 AST 87 H ALT 123 H Alkaline Phosphatase 179 H Total Protein 6.0 L Albumin 1.5 L HOSPITAL COURSE: Date of Admission:11/16/18 Patient is a 78 y/o female with a history of parkinsons, alzheimers, HTN, HLD, hypothyroidism, seizure disorder, and decubitus ulcerwho was admitted for weakness. Patient evaluated by wound care and ID. Ulcer does not appear to be infected at this time, emperic abx stopped. Continued wound care to area and start supplements to help healing. During stay patient became dehydrated and hypernatremia. Free fluids were increase and the levels resolved. Patients LFT's were found to be elevated. 2 US of abdomen was done and did not find anything abnormal. LFT's continue to trend down Patient found to be anemic, ferritin and TIBC normal, anemia 2/2 to chronic disease. Will have monitored as an outpatient. Patients mental status, nonverbal and confused, likely baseline. Evaluated by neuro and did not find any evidence of seizures. Patient vitals stable and stable for discharge to SNF. CT of abd and chest:Density posteriorly at the right base, possibly representing infiltrate or atelectasis. Small right pleural effusion. no evidence of hepatic mass Wound cx: Pseudomonas Aeruginosa, Ucx Group D Strep, or Enterococcus. Both sensitive to Zosyn Duplex US- shows rice's cyst Head CT: no acute pathology Date of Discharge: 11/30/18 Minutes to complete discharge: 40 Discharge Summary Reason For Visit: UTI/ELEVATED LIVER FUNCTION TEST/LEUKOCYTOSIS Current Active Problems Altered mental status (Chronic) Alzheimer's dementia (Chronic) Dementia (Chronic) HLD (hyperlipidemia) (Chronic) HTN (hypertension) (Chronic) Hypothyroid (Chronic) Poor appetite (Chronic) Condition: Improved - Instructions Diet, Activity, Other Instructions: You were admitted to the hospital for a urinary tract infection. We treated your infection with antibiotics and your infection resolved. While you were here, we treated an ulcer on your lower back. We monitored your ulcer and we treated you with antibiotics. Your ulcer is not infected at this time. To continue treatment of this ulcer: - Use an air mattress - Use drawsheets when repositioning to reduce friction and shear - Manage incontininence via timely cleansing, use of appropriate incontinence disposables and use of barrier ointment to intact skin - Ensure adequate hydration/nutrition - Ensure off-loading to all bony areas (heels, ankles, hips, and tailbone) with Allevyn/Optifoam - Clean ulcer with normal saline and apply Bacitracin. If you have any further problems with the ulcer, follow up with wound care clinic Dr. Tristan Mckenzie at [phone]. You have a medical history of anemia (low blood count). We ordered additional labs to further evaluate your anemia. Your iron, B12, folate, and ferritin levels were all normal. It was concluded that your anemia is a chronic issue caused from your other medical problems. You anemia is stable and does not require further evaluation or treatment at this time. You should follow up with your primary care provider in 2-3 days to review your blood work. While you were here, your protein and albumin levels were low, which suggests that you may not be eating enough. A law office assistant evaluated you and your lab values and made recommendations for your diet to improve your nutrition. You should receive Jevity 1.5 ml/hr x 24 hours with 50ml water flush each hour of feeding. While you were here, you also had high liver enzyme levels. Further evaluation was done, including an ultrasound and CT of your abdomen. No abnormalities were found at this time. Your labs should return to normal, please have repeat labs of your liver enzymes (LFT's) done within one week with your primary care physician. It does not require further evaluation or treatment at this time. You should follow up with your Primary care provider in one week. You should resume all of your home medications as prescribed. You should return to the Emergency Department if you have nausea, vomiting, fevers, chest pain or worsening of symptoms. Referrals: Talon Gonsalez MD [Primary Care Provider] - Tristan Mckenzie DO [Staff Physician] - Disposition: ALF FACILITY - Home Medications Comprehensive Discharge Medication List: Ambulatory Orders Aspirin [ASA -] 81 mg GT DAILY 04/17/17 Atorvastatin Ca [Lipitor] 40 mg GT HS 04/17/17 Levothyroxine [Synthroid -] 50 mcg GT ASDIR 04/17/17 Memantine HCl [Namenda Xr] 28 mg GT DAILY 04/17/17 Polyethylene Glycol 3350 [Miralax 119 gm Btl -] 17 g GT PRN PRN 06/17/18 Polyvinyl Alcohol [Artificial Tears] 1 drop OU TID #1 drops 07/28/18 Amlodipine Besylate [Norvasc -] 10 mg GT DAILY 11/16/18 Amino Acids/Protein Hydrolys [Prosource No Carb Liquid Pkt] 30 ml PO BID@0800, 1730 packet 11/30/18 Ascorbic Acid [Vitamin C -] 250 mg PO BID tablet 11/30/18 Bacitracin - [Bacitracin Topical Ointment -] 1 applic TP DAILY tube 11/30/18 Bisacodyl Suppository [Dulcolax Suppository -] 10 mg LA DAILY PRN supp.rect 12/12 Heparin - 5,000 unit SQ TID vial 11/30/18 Polyethylene Glycol 3350 [Miralax (For Daily Use) -] 17 gm PO DAILY #1 bottle Thiamine HCl [Vitamin B1 -] 100 mg PO HS tablet 11/30/18 Zinc Sulfate [Orazinc -] 220 mg PO DAILY capsule 11/30/18 This patient is new to me today: No Emergency Visit: No Critical Care patient: No - Discharge Referral Referred to [facility] No
[2018-11-30 14:55] VITALS: BP 139/70; PULSE 83; TEMP 98.4
--- NOTE | 2018-11-30 18:20 | PN ---
Teaching Attending Note Name of Resident: Aga Cr ATTENDING PHYSICIAN STATEMENT I saw and evaluated the patient. I reviewed the resident's note and discussed the case with the resident. I agree with the resident's findings and plan as documented. SUBJECTIVE: Patient is comfortable with no acute distress. OBJECTIVE: Vital Signs Temperature 98.4 F 11/30/18 14:54 Pulse Rate 83 11/30/18 14:54 Respiratory Rate 22 H 11/30/18 09:02 Blood Pressure 139/70 11/30/18 14:54 O2 Sat by Pulse Oximetry (%) 96 11/30/18 09:00 GEN:Lying in bed, non verbal Eyes: Conjunctiva Clear, EOM Intact, PERRL. HENT: Atraumatic,NC Cardiovascular: S1, S2 positive, RRR. Respiratory: decreased BS BL Gastrointestinal: positive for (PEG tube in place LUQ clean,dry, no erythema) SKIN: decubitus Ulcer (presented from home with Sacral decubitus stage 3-2x2cm, non purulent, clean, dry) Neurological:Non verbal, contracted Psychiatric: nonverbal Extremeties: trace edema of the legs, below ankles due to gravity. CBCD WBC 9.7 K/mm3 (4.0-10.0) 11/30/18 06:10 RBC 2.95 M/mm3 (3.60-5.2) L 11/30/18 06:10 Hgb 8.2 GM/dL (10.7-15.3) L 11/30/18 06:10 Hct 25.8 % (32.4-45.2) L 11/30/18 06:10 MCV 87.4 fl (80-96) 11/30/18 06:10 MCHC 31.7 g/dl (32.0-36.0) L 11/30/18 06:10 RDW 19.7 % (11.6-15.6) H 11/30/18 06:10 Plt Count 301 K/MM3 (134-434) 11/30/18 06:10 MPV 8.6 fl (7.5-11.1) 11/30/18 06:10 CMP Sodium 140 mmol/L (136-145) 11/30/18 06:10 Potassium 4.0 mmol/L (3.5-5.1) 11/30/18 06:10 Chloride 108 mmol/L (98-107) H 11/30/18 06:10 Carbon Dioxide 26 mmol/L (21-32) 11/30/18 06:10 Anion Gap 6 MMOL/L (8-16) L 11/30/18 06:10 BUN 13.1 mg/dL (7-18) 11/30/18 06:10 Creatinine 0.6 mg/dL (0.55-1.3) 11/30/18 06:10 Random Glucose 123 mg/dL (74-106) H 11/30/18 06:10 Calcium 7.8 mg/dL (8.5-10.1) L 11/30/18 06:10 Total Bilirubin 0.3 mg/dL (0.2-1) 11/30/18 06:10 AST 87 U/L (15-37) H 11/30/18 06:10 ALT 123 U/L (13-61) H 11/30/18 06:10 Alkaline Phosphatase 179 U/L (45-117) H 11/30/18 06:10 Total Protein 6.0 g/dl (6.4-8.2) L 11/30/18 06:10 Albumin 1.5 g/dl (3.4-5.0) L 11/30/18 06:10 CARDIAC ENZYMES Creatine Kinase 300 U/L (26-192) H 11/19/18 06:34 Troponin I < 0.02 ng/ml (0.00-0.05) 11/17/18 07:33 Home Medications Medication Instructions Recorded Aspirin [ASA -] 81 mg GT DAILY 04/17/17 Atorvastatin Ca [Lipitor] 40 mg GT HS 04/17/17 Levothyroxine [Synthroid -] 50 mcg GT ASDIR 04/17/17 Memantine HCl [Namenda Xr] 28 mg GT DAILY 04/17/17 Polyethylene Glycol 3350 [Miralax 17 g GT PRN PRN 06/17/18 119 gm Btl -] Polyvinyl Alcohol [Artificial 1 drop OU TID #1 drops 07/28/18 Tears] Amlodipine Besylate [Norvasc -] 10 mg GT DAILY 11/16/18 Amino Acids/Protein Hydrolys 30 ml PO BID@0800,1730 packet 11/30/18 [Prosource No Carb Liquid Pkt] Ascorbic Acid [Vitamin C -] 250 mg PO BID tablet 11/30/18 Bacitracin - [Bacitracin Topical 1 applic TP DAILY tube 11/30/18 Ointment -] Bisacodyl Suppository [Dulcolax 10 mg AR DAILY PRN supp.rect 11/30/18 Suppository -] Heparin - 5,000 unit SQ TID vial 11/30/18 Polyethylene Glycol 3350 [Miralax 17 gm PO DAILY #1 bottle 11/30/18 (For Daily Use) -] Thiamine HCl [Vitamin B1 -] 100 mg PO HS tablet 11/30/18 Zinc Sulfate [Orazinc -] 220 mg PO DAILY capsule 11/30/18 ASSESSMENT AND PLAN: Patient is a 78yo female with hx of Parkinson's, dementia, HTN, HLD, anemia, hypothyroidism, decubitus ulcer stage 2, PEG who presented with tremors and was found to have fecal impaction and UTI # Acute Transaminitis : improving, will continue IVF , and continue to hold lipitor. will repeat the level in am , discussed with . presented with 283-->156-->116-->89-->184--> 121-->101--87 today, US of abdomen is normal. CT abdomen and pelvis is negative. discussed with the daughter, will tx the patient to rehab. today. repeat LFts in a week period. # Acute mild hypernatremia improved today due to dehydration: s/p IV d51/2NS at 75cc/hr # UTI: sepsis resolved. possible PNA , off antibiotic now. # Acute dehydration : increase free water in TF . Monitor NA # ROBERT : creatinine is 0.6, BUN 56 due to dehydration , s/p IV d51/2NS # SAcral decub stage 2: frequent turning # Constipation with fecal impaction with stercoral proctitis: s/p disimpaction. prn miralx and dulcolax DVT Px : Heparin sq [phone] Janae(daughter's #) discharge pt to rehab
== END 2018-11-30 17:45 | DRG 871 ==
LOC: JER 14:52 → JERBED 20:11 → J6S 11-17 03:26
PROVIDERS: ADMIT Internal Medicine; ATTEND Internal Medicine
PROC: 3E0G76Z Introduction of Nutritional Substance into Upper GI, Via Natural or Artificial Opening (ICD-10-PCS; principal; 2018-11-16)
DX: A41.9 Sepsis, unspecified organism (principal); L89.153 Pressure ulcer of sacral region, stage 3; G93.41 Metabolic encephalopathy; J18.9 Pneumonia, unspecified organism; M62.82 Rhabdomyolysis; N39.0 Urinary tract infection, site not specified; J98.11 Atelectasis; E87.0 Hyperosmolality and hypernatremia; G20 Parkinson's disease; G30.9 Alzheimer's disease, unspecified; I10 Essential (primary) hypertension; E78.5 Hyperlipidemia, unspecified; E03.9 Hypothyroidism, unspecified; G40.909 Epilepsy, unspecified, not intractable, without status epilepticus; Z93.1 Gastrostomy status; E88.09 Other disorders of plasma-protein metabolism, not elsewhere classified; F02.80 Dementia in other diseases classified elsewhere, unspecified severity, without behavioral disturbance, psychotic disturbance, mood disturbance, and anxiety; Z74.01 Bed confinement status; D64.9 Anemia, unspecified; R74.0 Nonspecific elevation of levels of transaminase and lactic acid dehydrogenase [LDH]; R94.5 Abnormal results of liver function studies; M71.21 Synovial cyst of popliteal space [Baker], right knee; B95.2 Enterococcus as the cause of diseases classified elsewhere; K59.00 Constipation, unspecified; E86.0 Dehydration; D63.8 Anemia in other chronic diseases classified elsewhere
CPT/HCPCS: 36415; 70450-TC; 71045-TC-FY; 71250-TC; 74176-TC; 74177-TC; 76705-TC; 80048; 80053; 80061; 80076; 80164; 81003; 82140; 82272; 82550; 82553; 82728; 82962; 83540; 83550; 83605; 83690; 83721; 83735; 84100; 84443; 84484; 85025; 85027; 85610; 85651; 86140; 86850; 86900; 86901; 87040; 87070; 87086; 87186; 87205; 87899; 93005; 93010; 93970-TC; 99285-25; J1644; J7030; Q9967

== ENCOUNTER 2018-12-08 14:16 | Emergency (ER) | payer OTHER ==
[2018-12-08 14:36] VITALS: BP 140/90; PULSE 88; TEMP 97; BMI 16.1
--- NOTE | 2018-12-08 14:45 | PDOC ---
History of Present Illness - General Chief Complaint: G Tube Problem Stated Complaint: G TUBE Time Seen by Provider: 12/08/18 14:42 - History of Present Illness Initial Comments: 12/08/18 15:38 The patient is a 78 year old female with a history of HTN, HLD, Dementia, s/p peg who presents for evaluation of G-tube replacement. The patient is accompanied by her daughter who assists in providing the history. They note that the patient's G-tube got accidentally pulled out prompting their presentation to the ED for further evaluation. They deny any other issues at the moment. A gibbons catheter was placed in the tract of the G-tube at the patient's [place] prior to presentation to the ED. ROS is unobtainable due to dementia. Past History - Past Medical History Allergies/Adverse Reactions: Allergies Allergy/AdvReac Type Severity Reaction Status Date / Time strawberry Allergy Mild Hives Verified 12/08/18 14:36 tomato Allergy Mild Hives Verified 12/08/18 14:36 divalproex sodium Allergy Verified 12/08/18 14:36 [From Depakote] lisinopril Allergy Verified 12/08/18 14:36 No Known Drug Allergies Allergy Verified 12/08/18 14:36 quetiapine [From Seroquel] Allergy Verified 12/08/18 14:36 Home Medications: Ambulatory Orders Aspirin [ASA -] 81 mg GT DAILY 04/17/17 Atorvastatin Ca [Lipitor] 40 mg GT HS 04/17/17 Levothyroxine [Synthroid -] 50 mcg GT ASDIR 04/17/17 Memantine HCl [Namenda Xr] 28 mg GT DAILY 04/17/17 Polyethylene Glycol 3350 [Miralax 119 gm Btl -] 17 g GT PRN PRN 06/17/18 Polyvinyl Alcohol [Artificial Tears] 1 drop OU TID #1 drops 07/28/18 Amlodipine Besylate [Norvasc -] 10 mg GT DAILY 11/16/18 Amino Acids/Protein Hydrolys [Prosource No Carb Liquid Pkt] 30 ml PO BID@0800, 1730 packet 11/30/18 Ascorbic Acid [Vitamin C -] 250 mg PO BID tablet 11/30/18 Bacitracin - [Bacitracin Topical Ointment -] 1 applic TP DAILY tube 11/30/18 Bisacodyl Suppository [Dulcolax Suppository -] 10 mg [place] DAILY PRN supp.rect 12/12 Heparin - 5,000 unit SQ TID vial 11/30/18 Polyethylene Glycol 3350 [Miralax (For Daily Use) -] 17 gm PO DAILY #1 bottle Thiamine HCl [Vitamin B1 -] 100 mg PO HS tablet 11/30/18 Zinc Sulfate [Orazinc -] 220 mg PO DAILY capsule 11/30/18 Cardiac Disorders: Yes (bradycardia) COPD: No Dementia: Yes (ALZHEIMERS.aphasia) Disorders: (UTI) HTN: Yes Hypercholesterolemia: Yes Psychiatric Problems: Yes (psychosis.) Thyroid Disease: Yes (hypothyroid) - Surgical History GI Surgery: Yes (g tube) - Suicide/Smoking/Psychosocial Hx Smoking History: Never smoked Have you smoked in the past 12 months: No Information on smoking cessation initiated: No Hx Alcohol Use: No Drug/Substance Use Hx: No Substance Use Type: None Hx Substance Use Treatment: No Review of Systems - Review of Systems Able to Perform ROS?: No (Dementia) *Physical Exam - Vital Signs Last Vital Signs Temp Pulse Resp BP Pulse Ox 97 F L 88 16 140/90 100 12/08/18 14:24 12/08/18 14:24 12/08/18 14:24 12/08/18 14:24 12/08/18 14:24 - Physical Exam Comments: 12/08/18 15:41 General Appearance: Nourished. No Apparent Distress HEENT: No Pharyngeal Erythema, Tonsillar Exudate, Tonsillar Erythema Neck: No Cervical Lymphadenopathy Respiratory/Chest: Lungs Clear, Normal Breath Sounds. No Crackles, Rales, Rhonchi, Wheezing Cardiovascular: Regular Rhythm, Regular Rate. No Murmur, Gallops, Rubs Gastrointestinal/Abdominal: Normal Bowel Sounds, Soft. Gibbons in place in G-tube Tract. No Guarding, Rebound, Tenderness Musculoskeletal: No CVA Tenderness Extremity: Normal Capillary Refill Integumentary: Normal Color, Dry, Warm Neurologic: Non-verbal at baseline. Procedures - Additional Procedures Additional Procedures: gastric tube replacement Medical Decision Making - Medical Decision Making 12/08/18 15:43 The patient is a 78 year old female with a history of HTN, HLD, Dementia, s/p peg who presents for evaluation of G-tube replacement. The patient's G-tube was replaced with an 18 yi tube. We will obtain a gastrograffin plain film to evaluate proper placement of the G-tube. We will continue to monitor and reassess while here in the ED. 12/08/18 15:53 Plain film demonstrates proper placement of G-tube. We are comfortable discharging the patient home in stable condition. Patient and family made aware of impression and plan, return precautions discussed including but not limited to worsening pain or symptoms, fevers, or signs of infection, chest pain, respiratory distress, inability to tolerate oral intake, dehydration, syncope, or neurologic changes. The patient is to follow up with PMD as recommended within 1 week, follow up information provided and the patient will call for an appointment. The patient is to take medications as instructed for duration of time and continue with supportive care, avoid triggers and precipitants. Patient is safe for outpatient follow-up. *DC/Admit/Observation/Transfer Diagnosis at time of Disposition: Gastrojejunostomy tube dislodgement - Discharge Dispostion Disposition: HOME Condition at time of disposition: Stable Decision to Admit order: No - Referrals Referrals: Braulio Veronica MD [Primary Care Provider] - - Patient Instructions Printed Discharge Instructions: How to Care for Your PEG Tube Additional Instructions: 1) Please follow-up with your primary care doctor in the next 2-3 days. Please call tomorrow to schedule a follow up appointment. If you cannot follow up with your doctor within 1 week please return to the Emergency Department for any urgent issues. 2) Your imaging results were normal here in the ER. Your Gastric tube was replaced successfully as well. 3) If you have any worsening of symptoms or any other concerns please return to the ER immediately. Return if worsening symptoms including fevers, headache, vomiting, visual or hearing disturbances, abdominal pain, chest pain, shortness of breath, syncope, dehydration, inability to take things by mouth/vomiting, altered mental status, or worsening concerning symptoms. 4) Please continue taking your home medications as directed. Side effects may include upset stomach, abdominal pain, vomiting, or diarrhea. Do not drink alcohol with your medications. - Post Discharge Activity
[2018-12-08] MEDS ORDERED: ACETAMINOPHEN 650 MG/20.3 ML ORAL SOLUTION (CUPS) PO ONE (15:03)
[2018-12-08] MEDS ORDERED: ACETAMINOPHEN 650 MG/20.3 ML ORAL SOLUTION (CUPS) PEG ONE (15:31)
--- NOTE | 2018-12-08 15:52 | PDOC ---
Documentation entered by Nayeli Oliver SCRIBE, acting as scribe for Elier oJhn MD. Elier John MD: This documentation has been prepared by the margaretibe, Nayeli Oliver SCRIBE, under my direction and personally reviewed by me in its entirety. I confirm that the documentation accurately reflects all work, treatment, procedures, and medical decision making performed by me. Attending Attestation - Resident Resident Name: Anibal Tabares - ED Attending Attestation I have performed the following: I have examined & evaluated the patient, The case was reviewed & discussed with the resident, I agree w/resident's findings & plan - HPI HPI: 12/08/18 15:49 78y/o F from NH with displaced g-tube. gibbons catheter placed to temporize. - Physicial Exam PE: 12/08/18 15:52 VSS abdomen soft gibbons cathether in place, G-Tube replaced without difficulty - Medical Decision Making 12/08/18 15:52 78y/o F with displaced G-tube, now replaced xray confirms positioning can return to NH, return precautions discussed
[2018-12-08] MEDS ORDERED: ACETAMINOPHEN 650 MG/20.3 ML ORAL SOLUTION (CUPS) ONE (16:10)
== END 2018-12-08 17:50 | disposition home or self-care (01) ==
LOC: JER 14:16
PROC: 0D20XUZ Change Feeding Device in Upper Intestinal Tract, External Approach (ICD-10-PCS; principal; 2018-12-08)
DX: Z43.1 Encounter for attention to gastrostomy (principal); I10 Essential (primary) hypertension; E78.5 Hyperlipidemia, unspecified; E78.00 Pure hypercholesterolemia, unspecified; E03.9 Hypothyroidism, unspecified; G30.8 Other Alzheimer's disease; F02.80 Dementia in other diseases classified elsewhere, unspecified severity, without behavioral disturbance, psychotic disturbance, mood disturbance, and anxiety; R47.01 Aphasia; Z87.440 Personal history of urinary (tract) infections; Z86.59 Personal history of other mental and behavioral disorders
CPT/HCPCS: 43762; 74019-TC-FY; 99281-25

== ENCOUNTER 2018-12-29 12:58 | Emergency (ER) | payer OTHER ==
--- NOTE | 2018-12-29 14:05 | PDOC ---
History of Present Illness - General Chief Complaint: Injury Stated Complaint: FALL Time Seen by Provider: 12/29/18 14:00 - History of Present Illness Initial Comments: 12/29/18 14:54 78yo F hx HTN, HLD, Alzheimer's dementia, Parkinson's, hypothyroidism, nonverbal and contractured at baseline with G-tube presents from [facility] s /p fall from bed to floor. Pt is with her daughter and healthcare proxy Janae. Janae states that pt has been at her baseline prior to fall and after fall. She just wants to get a CT scan of her head and neck due to possible head injury. Janae states that [place] told her the pt had an unwitnessed fall from bed to floor, and was found on floor within a few minutes of fall. Janae states that [place] thought she might have hit her head due to proximity to bed. Janae is frustrated and confused as to how she fell since she baseline requires a wheelchair and hydraulic lift to get out of bed, cannot walk, and is always contractured. Janae states that pt has been in her USOh with no changes in mental status or behavior, indications of pain, LOC, vomiting, hematuria, cough, urinary/bowel incontinence, seizure-like activity, tongue biting, or F/C. Last tetanus 2017. Janae also complains that G-tube is smaller than initial G-tube making it harder to clean. It flushes and functions normally and there is no redness, warmth, drainage, or discharge around site, but Janae would like it replaced with a larger G-tube. PCP - Dr Gonsalez Past History - Past Medical History Allergies/Adverse Reactions: Allergies Allergy/AdvReac Type Severity Reaction Status Date / Time strawberry Allergy Mild Hives Verified 12/08/18 14:36 tomato Allergy Mild Hives Verified 12/08/18 14:36 divalproex sodium Allergy Verified 12/08/18 14:36 [From Depakote] lisinopril Allergy Verified 12/08/18 14:36 No Known Drug Allergies Allergy Verified 12/08/18 14:36 quetiapine [From Seroquel] Allergy Verified 12/08/18 14:36 Home Medications: Ambulatory Orders Aspirin [ASA -] 81 mg GT DAILY 04/17/17 Atorvastatin Ca [Lipitor] 40 mg GT HS 04/17/17 Levothyroxine [Synthroid -] 50 mcg GT ASDIR 04/17/17 Memantine HCl [Namenda Xr] 28 mg GT DAILY 04/17/17 Polyethylene Glycol 3350 [Miralax 119 gm Btl -] 17 g GT PRN PRN 06/17/18 Polyvinyl Alcohol [Artificial Tears] 1 drop OU TID #1 drops 07/28/18 Amlodipine Besylate [Norvasc -] 10 mg GT DAILY 11/16/18 Amino Acids/Protein Hydrolys [Prosource No Carb Liquid Pkt] 30 ml PO BID@0800, 1730 packet 11/30/18 Ascorbic Acid [Vitamin C -] 250 mg PO BID tablet 11/30/18 Bacitracin - [Bacitracin Topical Ointment -] 1 applic TP DAILY tube 11/30/18 Bisacodyl Suppository [Dulcolax Suppository -] 10 mg [place] DAILY PRN supp.rect 12/12 Heparin - 5,000 unit SQ TID vial 11/30/18 Polyethylene Glycol 3350 [Miralax (For Daily Use) -] 17 gm PO DAILY #1 bottle Thiamine HCl [Vitamin B1 -] 100 mg PO HS tablet 11/30/18 Zinc Sulfate [Orazinc -] 220 mg PO DAILY capsule 11/30/18 Cardiac Disorders: Yes (bradycardia) COPD: No Dementia: Yes (ALZHEIMERS.aphasia) Disorders: (UTI) HTN: Yes Hypercholesterolemia: Yes Psychiatric Problems: Yes (psychosis.) Thyroid Disease: Yes (hypothyroid) - Surgical History GI Surgery: Yes (g tube) - Suicide/Smoking/Psychosocial Hx Smoking History: Never smoked Have you smoked in the past 12 months: No Information on smoking cessation initiated: No Hx Alcohol Use: No Drug/Substance Use Hx: No Substance Use Type: None Hx Substance Use Treatment: No Review of Systems - Review of Systems Able to Perform ROS?: No Comments:: 12/29/18 15:20 Unable to perform due to pt's dementia and nonverbal status *Physical Exam - Vital Signs Last Vital Signs Temp Pulse Resp BP Pulse Ox 97.6 F 75 17 174/102 H 99 12/29/18 13:00 12/29/18 13:00 12/29/18 13:00 12/29/18 13:00 12/29/18 13:00 - Physical Exam Comments: 12/29/18 15:21 Gen: Awake, alert, NAD, contractured (baseline per pt's daughter) HEENT: PERRL, moves eyes in all directions, MMM, NCAT. No conjunctival pallor. Sclera are non-icteric. Oropharynx is clear. No TTP of face. CV: Regular rate and rhythm. No murmurs, rubs, or gallops. PULM: No resp distress. CTAB, no wheezes, rales, or rhonchi. ABD: soft, NT/ND, no rebound tenderness or guarding, no CVA tenderness. G-tube in place - no erythema, warmth, or purulence around site. BACK: No TTP of c/t/l-spine. No step-offs or deformities. MSK: No bony deformities. No TTP of all extremities, ribs, hips, and pelvic. Pelvis stable. 2+ pulses in all extremities. NEURO: Alert. Unable to follow commands (baseline per pt's daughter). PERRL. No gross CN deficits. Strength and sensation grossly intact throughout. Unable to ambulated (baseline). EXTREMITIES: No cyanosis. No clubbing. No edema. No calf tenderness. PSYCH: Normal mood and thought pattern. SKIN: Warm and dry. Normal capillary refill. No rashes. No jaundice. No ecchymoses or signs of trauma. Medical Decision Making - Medical Decision Making 12/29/18 15:03 78yo F hx HTN, HLD, Alzheimer's dementia, Parkinson's, hypothyroidism, nonverbal and contractured at baseline with G-tube presents from [facility] s /p unwitnessed fall from bed to floor with possible head injury. Pt is with her daughter and healthcare proxy Janae. Hemodynamically stable, afebrile, baseline nonverbal and contractured, no indications or signs of pain on physical exam, no complaints or changes in behavior or mental status per daughter. Will obtain CTH and c-spine to r/o fx or ICH due to possible head injury. No other imaging indicated at this time due to no other s/s of injury. Fall believed to be mechanical - no complaints or changes in behavior to indicate syncope, seizure, or underlying etiology of fall. Daughter requests G- tube replacement with larger tube due to sediment in current one. No s/s of displaced or malfunctioning tube or infection at tube site. -CTH/c-spine -Change G-tube to 20F then XR to confirm placement -Dispo: d/c home w/[facility] f/u pending workup Pt to CT. 12/29/18 15:44 Showed pt's daughter the larger 20F G-tube. Daughter states it doesn't look better than the current one - she wanted one more flexible. Daughter states to just leave the current one there. No changes. Pt appears comfortable. Pt's daughter wants them to go home. CTH reviewed. No acute abnormalities. 12/29/18 16:31 CT c-spine negative for acute abnormalities. Pt unchanged, ready to go home, amb[facility]lette called ETA 5pm. Will dc home with PCP f/u. Return precautions given. Pt understands all dc instructions and all questions were answered. *DC/Admit/Observation/Transfer Diagnosis at time of Disposition: Fall - Discharge Dispostion Disposition: [facility] Condition at time of disposition: Stable Decision to Admit order: No - Referrals Referrals: Braulio Veronica MD [Primary Care Provider] - Talon Gonsalez MD [Staff Physician] - - Patient Instructions Printed Discharge Instructions: How to Care for Your PEG Tube, How to Prevent Falls Additional Instructions: You have been seen in the Emergency Department for your fall and G-tube issue. Your CT scans of your head and neck show no signs of bleed or fracture. Your physical exam shows no signs of other injuries requiring imaging at this time. You were offered a larger G-tube but you requested to just keep the current one. Follow-up with your primary care doctor within 1 week. Return to the ED immediately if you experience difficulty breathing, vomiting, dizziness, pain, fall, malfunctioning G-tube, or any other new or worsening symptom. - Post Discharge Activity
[2018-12-29 14:22] VITALS: TEMP 97.6; BMI 26.6
--- NOTE | 2018-12-29 15:38 | PDOC ---
Documentation entered by Nayeli Oliver SCRIBE, acting as scribe for Darion Gonzalez MD. Darion Gonzalez MD: This documentation has been prepared by the scribe, Nayeli Oliver SCRIBE, under my direction and personally reviewed by me in its entirety. I confirm that the documentation accurately reflects all work, treatment, procedures, and medical decision making performed by me. Attending Attestation - Resident Resident Name: DamionaguilarChristie - ED Attending Attestation I have performed the following: I have examined & evaluated the patient, The case was reviewed & discussed with the resident, I agree w/resident's findings & plan, Exceptions are as noted - HPI HPI: 12/29/18 15:29 The patient is a 78-year-old female from [place], with a past medical history of HTN , HLD, Alzheimers, dementia, G-tube in place, patient is nonverbal and contracted at baseline, who presents to the ED s/p fall today. Daughter is at the bedside and is providing history. She received a call from the [place] informing her that she the patient fell out of bed this morning and the fall was unwitnessed. The patient uses a wheelchair and a hydraulic lift at baseline. She reports that the patient is at her baseline mentation. - Physicial Exam PE: 12/29/18 15:30 GENERAL: Awake, in no acute distress. HEAD: No signs of trauma EYES: PERRLA, EOMI, sclera anicteric, conjunctiva clear ENT: Auricles normal inspection, hearing grossly normal, nares patent, oropharynx clear without exudates. Moist mucosa NECK: Nontender, no stepoffs, Normal ROM, supple, no lymphadenopathy, JVD, or masses LUNGS: Breath sounds equal, clear to auscultation bilaterally. No wheezes, and no crackles HEART: Regular rate and rhythm, normal S1 and S2, no murmurs, rubs or gallops ABDOMEN: Soft, nontender, normoactive bowel sounds. No guarding, no rebound. No masses EXTREMITIES: No clubbing or cyanosis. No cords, erythema, or tenderness SKIN: Warm, Dry, normal turgor, no rashes or lesions noted. - Medical Decision Making 12/29/18 15:52 78 F with fall out of bed. No evidence of traumatic injury on exam, but given limited history, will obtain CT head and c-spine - CTH, CT c-spine 12/29/18 16:29 CTs unremarkable Pt is well appearing, with normal vitals. Clinically stable for DC at this time. I discussed the physical exam findings, ancillary test results and final diagnoses with the patients family. I answered all of their questions. The family was satisfied with the care received and felt comfortable with the discharge plan and treatment plan. They agree to follow up with the primary care physician within 24-72 hours.
[2018-12-29 17:16] VITALS: BP 160/90; PULSE 72
== END 2018-12-29 17:51 ==
LOC: JER 12:58
DX: S09.8XXA Other specified injuries of head, initial encounter (principal); W06.XXXA Fall from bed, initial encounter; Y93.89 Activity, other specified; Y92.122 Bedroom in nursing home as the place of occurrence of the external cause; Y99.8 Other external cause status; I10 Essential (primary) hypertension; E78.5 Hyperlipidemia, unspecified; G20 Parkinson's disease; F02.80 Dementia in other diseases classified elsewhere, unspecified severity, without behavioral disturbance, psychotic disturbance, mood disturbance, and anxiety; G30.8 Other Alzheimer's disease; E03.9 Hypothyroidism, unspecified; Z93.1 Gastrostomy status; Z99.3 Dependence on wheelchair; Z99.89 Dependence on other enabling machines and devices
CPT/HCPCS: 70450-TC; 72125-TC; 99282-25

== ENCOUNTER 2019-03-06 20:11 | Emergency (ER) | payer OTHER ==
--- NOTE | 2019-03-06 20:35 | PDOC ---
History of Present Illness - General Stated Complaint: GTUBE PROBLEM Time Seen by Provider: 03/06/19 20:32 - History of Present Illness Initial Comments: The pt is a 79F w/ a history of dementia, PEG tube in place, who presents from [facility] for g-tube replacement. The tube came out at approximately 1800. The staff at [facility] placed a gibbons to keep the tract patient. The pt is unable to provide a history at this time. 03/06/19 20:59 Past History - Past Medical History Allergies/Adverse Reactions: Allergies Allergy/AdvReac Type Severity Reaction Status Date / Time strawberry Allergy Mild Hives Verified 12/08/18 14:36 tomato Allergy Mild Hives Verified 12/08/18 14:36 divalproex sodium Allergy Verified 12/08/18 14:36 [From Depakote] lisinopril Allergy Verified 12/08/18 14:36 No Known Drug Allergies Allergy Verified 12/08/18 14:36 quetiapine [From Seroquel] Allergy Verified 12/08/18 14:36 Home Medications: Ambulatory Orders Aspirin [ASA -] 81 mg GT DAILY 04/17/17 Atorvastatin Ca [Lipitor] 40 mg GT HS 04/17/17 Levothyroxine [Synthroid -] 50 mcg GT ASDIR 04/17/17 Memantine HCl [Namenda Xr] 28 mg GT DAILY 04/17/17 Polyethylene Glycol 3350 [Miralax 119 gm Btl -] 17 g GT PRN PRN 06/17/18 Polyvinyl Alcohol [Artificial Tears] 1 drop OU TID #1 drops 07/28/18 Amlodipine Besylate [Norvasc -] 10 mg GT DAILY 11/16/18 Amino Acids/Protein Hydrolys [Prosource No Carb Liquid Pkt] 30 ml PO BID@0800, 1730 packet 11/30/18 Ascorbic Acid [Vitamin C -] 250 mg PO BID tablet 11/30/18 Bacitracin - [Bacitracin Topical Ointment -] 1 applic TP DAILY tube 11/30/18 Bisacodyl Suppository [Dulcolax Suppository -] 10 mg [place] DAILY PRN supp.rect 12/12 Heparin - 5,000 unit SQ TID vial 11/30/18 Polyethylene Glycol 3350 [Miralax (For Daily Use) -] 17 gm PO DAILY #1 bottle Thiamine HCl [Vitamin B1 -] 100 mg PO HS tablet 11/30/18 Zinc Sulfate [Orazinc -] 220 mg PO DAILY capsule 11/30/18 Cardiac Disorders: Yes (bradycardia) COPD: No Dementia: Yes (ALZHEIMERS.aphasia) Disorders: (UTI) HTN: Yes Hypercholesterolemia: Yes Psychiatric Problems: Yes (psychosis.) Thyroid Disease: Yes (hypothyroid) - Surgical History GI Surgery: Yes (g tube) - Psycho Social/Smoking Cessation Hx Smoking History: Never smoked Have you smoked in the past 12 months: No Hx Alcohol Use: No Drug/Substance Use Hx: No Substance Use Type: None Hx Substance Use Treatment: No Review of Systems - Review of Systems Able to Perform ROS?: No (2/2 medical condition) *Physical Exam - Vital Signs Vital Signs Temp Pulse Resp BP Pulse Ox 98.0 F 68 16 148/56 L 97 03/06/19 20:39 03/06/19 20:39 03/06/19 20:39 03/06/19 20:39 03/06/19 20:39 03/07/19 01:29 - Physical Exam Comments: GENERAL: Awake, does not follow commands HEAD: No signs of trauma EYES: PERRLA, EOMI, sclera anicteric, conjunctiva clear ENT: Hearing grossly normal, nares patent, oropharynx clear without exudates. Moist mucosa LUNGS: No distress, clear to auscultation bilaterally HEART: Regular rate and rhythm, normal S1 and S2, no murmurs appreciated ABDOMEN: Soft, gibbons in place at umbilicus, no grimace to palpation, normoactive bowel sounds EXTREMITIES: No edema SKIN: Warm, Dry 03/06/19 20:34 Medical Decision Making - Medical Decision Making The patient is a 79F with a history of HTN, HLD, Dementia, s/p peg who presents for evaluation of G-tube replacement. PED tube replaced with an 18F G-tube at 8cm Will obtain confirmation contrast study 03/06/19 21:[address] Plan for D/C to [place] Discharge instructions and return precautions provided Dispo: DC Discharge - Discharge Information Problems reviewed: Yes Clinical Impression/Diagnosis: PEG (percutaneous endoscopic gastrostomy) adjustment/replacement/removal Condition: Stable Disposition: HOME - Admission No - Follow up/Referral Referrals: [facility] [place] [[place] Group] - Patient Discharge Instructions Patient Printed Discharge Instructions: How to Care for Your PEG Tube Additional Instructions: You were seen in the Emergency Department for evaluation of G-tube replacement. A new 18F G-tube was placed at 8cm and confirmed with a gastrograffin study. Review the handout provided at discharge and continue to take your medications as prescribed. Return to the Emergency Department if you develop fevers/chills, abdominal bloating, PEG tube displacement, or any new/concerning symptoms. - Post Discharge Activity
--- NOTE | 2019-03-06 20:37 | PDOC ---
Attending Attestation - Resident Resident Name: Donaldo Becerra - ED Attending Attestation I have performed the following: I have examined & evaluated the patient, The case was reviewed & discussed with the resident, I agree w/resident's findings & plan, Exceptions are as noted - HPI HPI: 03/06/19 20:37 Mr. Ng is a 79 yo F with a history of HTN, HLD, Dementia, s/p peg who presents for evaluation of G-tube replacement. The patient is accompanied by her daughter who assists in providing the history. They note that the patient's G-tube got accidentally pulled out prompting their presentation to the ED for further evaluation. They deny any other issues at the moment. A gibbons catheter was placed in the tract of the G-tube at the patient's NH prior to presentation to the ED. - Physicial Exam PE: 03/06/19 22:58 This patient is awake, alert Not verbally responsive to examiner Patient contracted at the hips and knees Heart is regular Lungs are clear G-tube in place, scant serosanguineous fluid noted, no surrounding erythema - Medical Decision Making 03/06/19 22:59 G-tube replaced Gastrografin study performed G-tube appears to be in place, with no extravasation Will discharge to jail
[2019-03-06 20:44] VITALS: BP 148/56; PULSE 68; TEMP 98; BMI 20.9
== END 2019-03-07 01:39 ==
LOC: JER 20:11
PROC: 0DH63UZ Insertion of Feeding Device into Stomach, Percutaneous Approach (ICD-10-PCS; principal; 2019-03-06)
DX: Z43.1 Encounter for attention to gastrostomy (principal); I10 Essential (primary) hypertension; E78.00 Pure hypercholesterolemia, unspecified; E03.9 Hypothyroidism, unspecified; G30.8 Other Alzheimer's disease; F02.80 Dementia in other diseases classified elsewhere, unspecified severity, without behavioral disturbance, psychotic disturbance, mood disturbance, and anxiety; F29 Unspecified psychosis not due to a substance or known physiological condition; Z87.440 Personal history of urinary (tract) infections; Z88.8 Allergy status to other drugs, medicaments and biological substances; Z91.018 Allergy to other foods
CPT/HCPCS: 43762; 74018-TC-FY; 99281-25

== ENCOUNTER 2019-12-30 09:16 | Emergency (ER) | payer OTHER ==
[2019-12-30 09:23] VITALS: BMI 20.9
[2019-12-30 12:48] VITALS: BP 134/83; PULSE 88; TEMP 97.8
== END 2019-12-30 12:49 | disposition home or self-care (01) ==
LOC: JER 09:16
PROC: 0D20XUZ Change Feeding Device in Upper Intestinal Tract, External Approach (ICD-10-PCS; principal; 2019-12-30)
DX: K94.23 Gastrostomy malfunction (principal)
CPT/HCPCS: 43763; 74018-TC-FY; 99283-25

== ENCOUNTER 2019-12-31 12:04 | Emergency (ER) | payer OTHER ==
[2019-12-31 12:40] VITALS: BP 152/99; PULSE 112; TEMP 98.2; BMI 20.9
--- NOTE | 2019-12-31 12:44 | PDOC ---
History of Present Illness - General Chief Complaint: G Tube Problem Stated Complaint: G TUBE REPLACEMENT - History of Present Illness Initial Comments: Pt is a 79yo F with PMH HTN, HLD, dementia, Parkinson's and Alzheimer's who presents with loose G tube. Pt is nonverbal at baseline and history is given by daughter. Daughter (Janae) was feeding pt today and tube slid out during feed. Daughter was able to replace tube, but comes today requesting surgical replacement, stating that the tube is slips in and out too easily. Tube was replaced yesterday in ED. PCP: [facility]: [facility] Meds: no recent changes All: see chart Review of Systems - unable to obtain Physical Exam General: awake, nonverbal, in no acute distress Head: normocephalic, atraumatic Lung: equal breath sounds b/l, CTA b/l, no crackles, wheezes Heart: RRR, normal S1, S2, no murmurs, rubs, gallops Abdomen: soft, non tender, normoactive bowel sounds, no guarding, rebound, masses; clean, dry skin surrounding G tube, no blood, no erythema Extremities: no edema, no erythema or tenderness, PT, radial pulses 2+ and symmetric, no clubbing, cyanosis Skin: warm, dry, no rashes or lesions noted Past History - Medical History Allergies/Adverse Reactions: Allergies Allergy/AdvReac Type Severity Reaction Status Date / Time strawberry Allergy Mild Hives Verified 12/31/19 12:08 tomato Allergy Mild Hives Verified 12/31/19 12:08 divalproex sodium Allergy Verified 12/31/19 12:08 [From Depakote] lisinopril Allergy Verified 12/31/19 12:08 quetiapine [From Seroquel] Allergy Verified 12/31/19 12:08 Home Medications: Ambulatory Orders Aspirin [ASA -] 81 mg GT DAILY 04/17/17 Atorvastatin Ca [Lipitor] 40 mg GT HS 04/17/17 Levothyroxine [Synthroid -] 75 mcg GT ASDIR 04/17/17 Amlodipine Besylate [Norvasc -] 10 mg GT DAILY 11/16/18 Amino Acids/Protein Hydrolys [Prosource No Carb Liquid Pkt] 30 ml PO BID@0800,1730 packet 11/30/18 Ascorbic Acid [Vitamin C -] 250 mg PO BID tablet 11/30/18 Bacitracin - [Bacitracin Topical Ointment -] 1 applic TP DAILY tube 11/30/18 Bisacodyl Suppository [Dulcolax Suppository -] 10 mg [place] DAILY PRN supp.rect 11/30/18 Loratadine 10 mg PO DAILY PRN 08/09/19 Mupirocin Ointment [Bactroban 2% Ointment -] 1 applic TP BID 08/09/19 Olopatadine HCl 1 drop OU BID 08/09/19 Polyethylene Glycol 3350 17 gm GT DAILY 08/09/19 Polyvinyl Alcohol [Artificial Tears] 1 drop OU TID 08/09/19 levETIRAcetam [levETIRAcetam ORAL SUSPENSION] 5 ml GT BID 08/09/19 Amino Acids/Protein Hydrolys [Prosource No Carb Liquid Pkt] 30 ml GT BIDWM packet 08/11/19 Aspirin [ASA -] 81 mg GT DAILY tab.chew 08/11/19 Bacitracin - [Bacitracin Topical Ointment -] 1 applic TP DAILY tube 08/11/19 Polyethylene Glycol 3350 [Miralax 119 gm Btl -] 17 gm GT DAILY bottle 08/11/19 Cardiac Disorders: Yes (bradycardia) COPD: No Dementia: Yes (ALZHEIMERS.aphasia) Disorders: (UTI) HTN: Yes Hypercholesterolemia: Yes Psychiatric Problems: Yes (psychosis.) Thyroid Disease: Yes (hypothyroid) - Surgical History GI Surgery: Yes (g tube) - Reproductive History Is Patient Now?: No - Immunization History Immunization Up to Date: No - Psycho-Social/Smoking History Smoking History: Never smoked Have you smoked in the past 12 months: No Information on smoking cessation initiated: No - Substance Abuse Hx (Audit-C & DAST Scrn) How often the patient has a drink containing alcohol: Never Score: In Men: 4 or > Positive; In Women: 3 or > Positive: 0 Screen Result (Pos requires Nsg. Audit-10AR): Negative In the last yr the pt used illegal drug/Rx for NonMed reason: No Score: Yes response is considered Positive: 0 Screen Result (Positive result requires Nsg. DAST-10): Negative *Physical Exam - Vital Signs Last Vital Signs Temp Pulse Resp BP Pulse Ox 98.2 F 112 H 20 152/99 97 12/31/19 12:08 12/31/19 12:08 12/31/19 12:08 12/31/19 12:08 12/31/19 12:08 Medical Decision Making - Medical Decision Making Pt is a 79yo F with PMH who presents with a loose G tube. Vital Signs Period Temp Pulse Resp BP Sys/Torres Pulse Ox Last 24 Hr 98.2 F 112 20 152/99 97 DDx: dislodged G tube Plan: abdominal xray Confirmed placement of G tube by auscultation, placed 6cc of sterile water in balloon. Pending abdominal xray to confirm placement 12/31/19 14:14 AXR: No gross contrast extravasation is seen. Contrast is noted within the gastric lumen. Disposition Discharge to home Discharge - Discharge Information Problems reviewed: Yes Clinical Impression/Diagnosis: Dislodged gastrostomy tube Condition: Stable Disposition: HOME - Follow up/Referral Referrals: Akil Merrill MD [Staff Physician] - - Patient Discharge Instructions Patient Printed Discharge Instructions: How to Care for Your PEG Tube Additional Instructions: Your mother came into the ER for her loose G-tube. In the ED, your mother was evaluated with physical exam and xray. The abdominal xray confirmed placement of the tube. Your mother does not appear to be an acute need for immediate hospitalization. You were advised to follow up with your mother's primary care doctor as needed. Come back to the ER immediately with any new or worsening concerns. Thank you for coming to the [facility]! - Post Discharge Activity
--- NOTE | 2019-12-31 14:16 | PDOC ---
Attending Attestation - Resident Resident Name: Raysa Jay - ED Attending Attestation I have performed the following: I have examined & evaluated the patient, The case was reviewed & discussed with the resident, I agree w/resident's findings & plan - HPI HPI: 12/31/19 14:15 79-year-old female with history of G-tube placement initially in July 2019 status post dislodged G-tube yesterday now presents with dislodgment again status post replacement by daughter. No complaints. - Physicial Exam PE: 12/31/19 14:15 Afebrile. Replace G-tube, abdomen otherwise benign - Medical Decision Making 12/31/19 14:15 79-year-old female with dislodged G-tube, replaced. Abdomen benign. X-ray confirms placement Stable for discharge home, will arrange ambulate Discharge - Discharge Information Problems reviewed: Yes Clinical Impression/Diagnosis: Dislodged gastrostomy tube Condition: Stable Disposition: HOME - Follow up/Referral Referrals: Akil Merrill MD [Staff Physician] - - Patient Discharge Instructions Patient Printed Discharge Instructions: How to Care for Your PEG Tube Additional Instructions: Your mother came into the ER for her loose G-tube. In the ED, your mother was evaluated with physical exam and xray. The abdominal xray confirmed placement of the tube. Your mother does not appear to be an acute need for immediate hospitalization. You were advised to follow up with your mother's primary care doctor as needed. Come back to the ER immediately with any new or worsening concerns. Thank you for coming to the [facility] ER! - Post Discharge Activity
== END 2019-12-31 16:03 | disposition home or self-care (01) ==
LOC: JER 12:04
DX: K94.23 Gastrostomy malfunction (principal)
CPT/HCPCS: 74019-TC-FY; 99283-25

== ENCOUNTER 2020-04-04 12:52 | Emergency (ER) | payer OTHER ==
[2020-04-04 13:15] VITALS: BP 157/63; PULSE 68; TEMP 98.3; BMI 20.9
== END 2020-04-04 20:45 | disposition home or self-care (01) ==
LOC: JER 12:52
DX: K94.23 Gastrostomy malfunction (principal)
CPT/HCPCS: 49450; 99284-25

== ENCOUNTER 2020-07-28 11:39 | Emergency (ER) | payer OTHER ==
[2020-07-28 12:34] VITALS: TEMP 97.5; BMI 19.3
[2020-07-28] MEDS ORDERED: ENOXAPARIN NA (PORCINE) 60 MG/0.6 ML DISP.SYRIN SQ SCH (19:45)
[2020-07-28] MEDS ORDERED: ENOXAPARIN NA (PORCINE) 60 MG/0.6 ML DISP.SYRIN SQ ONE (19:48)
[2020-07-28 23:18] VITALS: BP 133/70; PULSE 103
== END 2020-07-28 23:09 | disposition home or self-care (01) ==
LOC: JER 11:39
DX: I82.412 Acute embolism and thrombosis of left femoral vein (principal)
CPT/HCPCS: 72192-TC; 73523-TC-FY; 74018-TC-FY; 93971-TC; 99285-25

== ENCOUNTER 2020-07-29 12:26 | Emergency (ER) | payer OTHER ==
[2020-07-29 12:50] VITALS: BMI 20.9
[2020-07-29] MEDS ORDERED: ENOXAPARIN NA (PORCINE) 60 MG/0.6 ML DISP.SYRIN SQ ONE ×2 (14:45→15:37)
[2020-07-29 18:47] VITALS: BP 128/66; PULSE 67; TEMP 98.1
== END 2020-07-29 20:44 | disposition home or self-care (01) ==
LOC: JER 12:26
PROC: 3E023GC Introduction of Other Therapeutic Substance into Muscle, Percutaneous Approach (ICD-10-PCS; principal; 2020-07-29)
DX: K94.23 Gastrostomy malfunction (principal)
CPT/HCPCS: 49450; 99284-25; C1769; C1887; C9803; U0003

== ENCOUNTER 2020-09-21 13:35 | Observation (INO) | payer OTHER ==
[2020-09-21 13:56] VITALS: BMI 20.1
[2020-09-21 15:51] LABS: PH,URINE 7.5 (5.0-8.0); URINE APPEARANCE CLEAR; URINE BILIRUBIN NEGATIVE (NEGATIVE); URINE COLOR YELLOW; URINE GLUCOSE (UA) NEGATIVE (NEGATIVE); URINE KETONE NEGATIVE (NEGATIVE); URINE LEUK ESTERASE NEGATIVE (NEGATIVE); URINE NITRITE NEGATIVE (NEGATIVE); URINE PROTEIN NEGATIVE (NEGATIVE); URINE UROBILINOGEN 0.2 mg/dL (0.2-1.0)
[2020-09-21 16:39] LABS: BASO % 0.9 % (0-2.0); EOS % 1.7 % (0-4.5); HEMATOCRIT 36.9 % (32.4-45.2); MCH 29.9 pg (25.7-33.7); MCHC 32.6 g/dl (32.0-36.0); MEAN CELL VOLUME 91.7 fl (80-96); MEAN PLT VOLUME 11.1 fl (7.5-11.1); MONO % 9.4 % (3.8-10.2); PLATELET COUNT 159 K/MM3 (134-434); RBC 4.03 M/mm3 (3.60-5.2); RDW 15.9 % (11.6-15.6); WHITE BLOOD COUNT 4.8 K/mm3 (4.0-10.0)
[2020-09-21 17:04] LABS: ALBUMIN 3.3 g/dl (3.4-5.0); BLOOD UREA NITROGEN 27.4 mg/dL (7-18); CALCIUM 9.4 mg/dL (8.5-10.1)
[2020-09-21 17:07] LABS: CREATININE 0.7 mg/dL (0.55-1.3)
[2020-09-21 17:08] LABS: BILIRUBIN,TOTAL 0.3 mg/dL (0.2-1); TOT PROT 7.6 g/dl (6.4-8.2)
[2020-09-21] MEDS ORDERED: LORazepam 2 MG/ML SDV VIAL IVPUSH PRN (17:56)
[2020-09-21] MEDS ORDERED: BISACODYL 10 MG SUPP.RECT PR PRN (17:58)
[2020-09-21] MEDS ORDERED: VALPROATE SODIUM 500 MG/5 ML VIAL IVPB ONE (18:28)
[2020-09-21] MEDS ORDERED: DIVALPROEX SODIUM 125 MG TABLET E.C. ONE (20:35)
[2020-09-21] MEDS ORDERED: ENOXAPARIN NA (PORCINE) 60 MG/0.6 ML DISP.SYRIN SQ ONE (21:25)
[2020-09-21] MEDS ORDERED: ATORVASTATIN CA 40 MG TABLET (FP) ONE (21:25)
[2020-09-21] MEDS ORDERED: ATORVASTATIN CA 40 MG TABLET (FP) GT SCH (22:00)
[2020-09-21] MEDS: ENOXAPARIN NA (PORCINE) 60 MG/0.6 ML DISP.SYRIN SQ SCH (22:13)
[2020-09-21] MEDS: DIVALPROEX SODIUM 125 MG SPRINKLE CAPS GT SCH (22:13)
[2020-09-21] MEDS: ASCORBIC ACID 500 MG/5 ML PO SCH (22:14)
[2020-09-22 06:44] LABS: BASO % 0.3 % (0-2.0); EOS % 0.4 % (0-4.5); HEMATOCRIT 37.1 % (32.4-45.2); HEMOGLOBIN 12.2 GM/dL (10.7-15.3); LYMPH % 11.6 % (8-40); MCH 29.9 pg (25.7-33.7); MCHC 32.8 g/dl (32.0-36.0); MEAN CELL VOLUME 91.1 fl (80-96); MEAN PLT VOLUME 11.3 fl (7.5-11.1); NEUT % 82.7 % (42.8-82.8); PLATELET COUNT 159 K/MM3 (134-434); RBC 4.07 M/mm3 (3.60-5.2); RDW 15.6 % (11.6-15.6); WHITE BLOOD COUNT 6.9 K/mm3 (4.0-10.0)
[2020-09-22 07:12] LABS: ALBUMIN 3.3 g/dl (3.4-5.0); CALCIUM 9.2 mg/dL (8.5-10.1)
[2020-09-22 07:13] LABS: BLOOD UREA NITROGEN 24.8 mg/dL (7-18); MAGNESIUM 2.3 mg/dL (1.8-2.4)
[2020-09-22 07:15] LABS: CREATININE 0.7 mg/dL (0.55-1.3); PHOSPHOROUS 3.6 mg/dL (2.5-4.9)
[2020-09-22 07:16] LABS: BILIRUBIN,TOTAL 0.3 mg/dL (0.2-1); TOT PROT 7.7 g/dl (6.4-8.2)
[2020-09-22] MEDS ORDERED: ASPIRIN 81 MG CHEWABLE TABLETS GT SCH (10:00)
[2020-09-22] MEDS ORDERED: MUPIROCIN 2% TOPICAL OINTMENT 22 GM TUBE TP SCH (10:00)
[2020-09-22] MEDS ORDERED: ENOXAPARIN NA (PORCINE) 40 MG/0.4 ML DISP.SYRIN SQ SCH (10:00)
[2020-09-22] MEDS ORDERED: BACITRACIN 15 GM TUBE TOPICAL OINTMENT TP SCH (10:00)
[2020-09-22] MEDS ORDERED: amLODIPine BESYLATE 10 MG TABLET (FP) GT SCH (10:00)
[2020-09-22] MEDS ORDERED: ENOXAPARIN NA (PORCINE) 60 MG/0.6 ML DISP.SYRIN SQ ONE (10:09)
[2020-09-22] MEDS ORDERED: amLODIPine BESYLATE 5 MG TABLET (FP) ONE (10:09)
[2020-09-22] MEDS ORDERED: ASPIRIN 81 MG CHEWABLE TABLETS ONE (10:09)
[2020-09-22] MEDS ORDERED: PT OWN MED DRAWER 7, Y5N ONE (10:10)
[2020-09-22] MEDS: AMINO ACIDS/PROTEIN HYDROLYS 30 ML LIQUID.PKT GT SCH ×2 (10:21→17:59)
[2020-09-22] MEDS: ASCORBIC ACID 500 MG/5 ML PO SCH ×2 (10:22→22:15)
[2020-09-22] MEDS: ENOXAPARIN NA (PORCINE) 60 MG/0.6 ML DISP.SYRIN SQ SCH ×2 (10:22→21:39)
[2020-09-22] MEDS: DIVALPROEX SODIUM 125 MG SPRINKLE CAPS GT SCH ×2 (10:22→21:38)
[2020-09-22] MEDS ORDERED: LORazepam 2 MG/ML SDV VIAL IVPUSH PRN (20:22)
[2020-09-22] MEDS ORDERED: BISACODYL 10 MG SUPP.RECT PR PRN (20:22)
[2020-09-22] MEDS ORDERED: ATORVASTATIN CA 40 MG TABLET (FP) GT SCH (22:00)
[2020-09-22] MEDS: MUPIROCIN 2% TOPICAL OINTMENT 22 GM TUBE TP SCH (22:27)
[2020-09-22] MEDS ORDERED: clonazePAM 0.25 MG ODT TABLETS GT PRN (23:05)
[2020-09-23] MEDS ORDERED: LEVOTHYROXINE NA 75 MCG TABLET (FP) GT SCH ×2 (07:00)
[2020-09-23] MEDS ORDERED: AMINO ACIDS/PROTEIN HYDROLYS 30 ML LIQUID.PKT GT SCH (08:00)
[2020-09-23 08:44] LABS: BASO % 1.4 % (0-2.0); HEMATOCRIT 35.3 % (32.4-45.2); HEMOGLOBIN 11.6 GM/dL (10.7-15.3); LYMPH % 26.7 % (8-40); MCH 30.3 pg (25.7-33.7); MEAN CELL VOLUME 91.8 fl (80-96); MEAN PLT VOLUME 11.8 fl (7.5-11.1); MONO % 7.5 % (3.8-10.2); NEUT % 63.4 % (42.8-82.8); PLATELET COUNT 162 K/MM3 (134-434); RBC 3.84 M/mm3 (3.60-5.2); WHITE BLOOD COUNT 5.6 K/mm3 (4.0-10.0)
[2020-09-23] MEDS ORDERED: PT OWN MED DRAWER 7, Y5N ONE (09:02)
[2020-09-23 09:03] LABS: ALBUMIN 3.1 g/dl (3.4-5.0); CALCIUM 9.3 mg/dL (8.5-10.1)
[2020-09-23 09:05] LABS: BLOOD UREA NITROGEN 26.6 mg/dL (7-18); MAGNESIUM 2.2 mg/dL (1.8-2.4)
[2020-09-23 09:08] LABS: CREATININE 0.8 mg/dL (0.55-1.3); PHOSPHOROUS 3.3 mg/dL (2.5-4.9)
[2020-09-23 09:09] LABS: BILIRUBIN,TOTAL 0.6 mg/dL (0.2-1); TOT PROT 7.4 g/dl (6.4-8.2)
[2020-09-23] MEDS: ASCORBIC ACID 500 MG/5 ML PO SCH (09:25)
[2020-09-23] MEDS: DIVALPROEX SODIUM 125 MG SPRINKLE CAPS GT SCH (09:26)
[2020-09-23] MEDS: ENOXAPARIN NA (PORCINE) 60 MG/0.6 ML DISP.SYRIN SQ SCH (09:26)
[2020-09-23] MEDS: MUPIROCIN 2% TOPICAL OINTMENT 22 GM TUBE TP SCH (09:26)
[2020-09-23] MEDS ORDERED: BACITRACIN 15 GM TUBE TOPICAL OINTMENT TP SCH (10:00)
[2020-09-23] MEDS ORDERED: ASPIRIN 81 MG CHEWABLE TABLETS GT SCH (10:00)
[2020-09-23] MEDS ORDERED: amLODIPine BESYLATE 10 MG TABLET (FP) GT SCH (10:00)
[2020-09-23 11:08] VITALS: BP 132/63; PULSE 67; TEMP 97.8
== END 2020-09-23 11:14 | disposition home or self-care (01) ==
LOC: JER 13:35 → JERBED 18:13 → INTOOBSV 18:13 → J6S 09-22 19:50
PROVIDERS: ADMIT Student in an Organized Health Care Education/Training Program; ATTEND Student in an Organized Health Care Education/Training Program
PROC: 3E023GC Introduction of Other Therapeutic Substance into Muscle, Percutaneous Approach (ICD-10-PCS; principal; 2020-09-21)
DX: G30.9 Alzheimer's disease, unspecified (principal); H55.00 Unspecified nystagmus; W18.39XA Other fall on same level, initial encounter; Z93.1 Gastrostomy status; Y93.89 Activity, other specified; Y92.89 Other specified places as the place of occurrence of the external cause; Z88.8 Allergy status to other drugs, medicaments and biological substances; Z91.018 Allergy to other foods; E03.9 Hypothyroidism, unspecified; E88.09 Other disorders of plasma-protein metabolism, not elsewhere classified; Z29.9 Encounter for prophylactic measures, unspecified
CPT/HCPCS: 36415; 70450-TC; 71045-TC-FY; 80053; 81003; 82550; 83735; 84100; 84146; 85025; 87086; 93005; 93010; 95816; 96372; 99285-25; C9803; G0378; U0003; U0005

== ENCOUNTER 2020-11-27 20:09 | Emergency (ER) | payer OTHER ==
[2020-11-27 20:33] VITALS: BMI 20.9
[2020-11-27] MEDS ORDERED: SODIUM CHLORIDE 0.9% 500 ML INFUS.BAG IV ONE (21:13)
[2020-11-27 21:35] LABS: HEMATOCRIT 41.6 % (32.4-45.2); HEMOGLOBIN 13.6 GM/dL (10.7-15.3); MCH 30.2 pg (25.7-33.7); MCHC 32.8 g/dl (32.0-36.0); MEAN CELL VOLUME 92.2 fl (80-96); MEAN PLT VOLUME 10.6 fl (7.5-11.1); PLATELET COUNT 167 10^3/uL (134-434); RBC 4.51 M/mm3 (3.60-5.2); RDW 15.8 % (11.6-15.6)
[2020-11-27 21:41] LABS: INR 0.97 (0.83-1.09); PROTHROMBIN TIME (PATIENT) 11.7 SEC (9.7-13.0)
[2020-11-27 21:44] LABS: ACTIVATED PTT 43.1 SECONDS (25.2-36.5)
[2020-11-27 21:57] LABS: ALBUMIN 3.5 g/dl (3.4-5.0); BLOOD UREA NITROGEN 18.9 mg/dL (7-18); CALCIUM 9.3 mg/dL (8.5-10.1)
[2020-11-27 22:00] LABS: CREATININE 0.6 mg/dL (0.55-1.3)
[2020-11-27 22:02] LABS: BILIRUBIN,TOTAL 0.3 mg/dL (0.2-1)
[2020-11-28 01:36] VITALS: BP 111/83; PULSE 74; TEMP 97.5
== END 2020-11-28 01:37 ==
LOC: JER 20:09
DX: K59.00 Constipation, unspecified (principal)
CPT/HCPCS: 36415; 74176-TC; 80053; 85027; 85610; 85730; 99284-25

== ENCOUNTER 2021-02-11 21:47 | Observation (INO) | payer OTHER ==
[2021-02-11] MEDS ORDERED: DIVALPROEX SODIUM 125 MG SPRINKLE CAPS PO ONE (22:53)
[2021-02-11] MEDS ORDERED: MAG HYDROX/AL HYDROX/SIMETH 30 ML UNIT-DOSE CUP PEG ONE (23:45)
[2021-02-11] MEDS ORDERED: MAG HYDROX/AL HYDROX/SIMETH 30 ML UNIT-DOSE CUP ONE (23:52)
[2021-02-12] MEDS ORDERED: ARTIFICIAL TEARS (POLYVINYL ALCOHOL) OPTH DROPS OU ONE (00:34)
[2021-02-12] MEDS ORDERED: BISACODYL 10 MG SUPP.RECT PR PRN (20:21)
[2021-02-12] MEDS ORDERED: ATORVASTATIN CA 10 MG TABLET (FP) ONE (23:23)
[2021-02-12] MEDS: ARTIFICIAL TEARS (POLYVINYL ALCOHOL) OPTH DROPS OU SCH (23:28)
[2021-02-12] MEDS: OXcarbazepine 300 MG/5 ML 250 ML BULK BOTTLE GT SCH (23:29)
[2021-02-12] MEDS: ATORVASTATIN CA 10 MG TABLET (FP) GT SCH (23:29)
[2021-02-13 00:45] VITALS: BMI 22.2
[2021-02-13] MEDS: ARTIFICIAL TEARS (POLYVINYL ALCOHOL) OPTH DROPS OU SCH ×3 (05:51→22:27)
[2021-02-13] MEDS ORDERED: LEVOTHYROXINE NA 50 MCG TABLET (FP) GT SCH (07:00)
[2021-02-13] MEDS ORDERED: POLYETHYLENE GLYCOL (HEALTHYLAX) 3350 17 GM PACKET GT SCH (10:00)
[2021-02-13] MEDS ORDERED: amLODIPine BESYLATE 10 MG TABLET (FP) GT SCH (10:00)
[2021-02-13] MEDS ORDERED: PT OWN MED DRAWER 7, Y5N ONE ×2 (10:22→21:27)
[2021-02-13] MEDS: OXcarbazepine 300 MG/5 ML 250 ML BULK BOTTLE GT SCH ×2 (10:39→21:29)
[2021-02-13] MEDS ORDERED: SODIUM CHLORIDE 250 ML IV STA (11:42)
[2021-02-13] MEDS: ATORVASTATIN CA 10 MG TABLET (FP) GT SCH (21:29)
[2021-02-14] MEDS ORDERED: ENOXAPARIN NA (PORCINE) 80 MG/0.8 ML DISP.SYRIN SQ ONE (00:35)
[2021-02-14 01:57] VITALS: BP 116/83; PULSE 62; TEMP 98.8
== END 2021-02-14 01:40 | disposition home health service (06) ==
LOC: JER 21:47 → JERBED 02-12 18:55 → INTOOBSV 02-12 18:55 → J6S 02-12 23:37
PROVIDERS: ADMIT Internal Medicine; ATTEND Internal Medicine
PROC: 3E023GC Introduction of Other Therapeutic Substance into Muscle, Percutaneous Approach (ICD-10-PCS; principal; 2021-02-12)
PROC: 3E0337Z Introduction of Electrolytic and Water Balance Substance into Peripheral Vein, Percutaneous Approach (ICD-10-PCS; 2021-02-12)
DX: Z43.1 Encounter for attention to gastrostomy (principal); F02.80 Dementia in other diseases classified elsewhere, unspecified severity, without behavioral disturbance, psychotic disturbance, mood disturbance, and anxiety; G20 Parkinson's disease; G30.9 Alzheimer's disease, unspecified; Z86.718 Personal history of other venous thrombosis and embolism; E03.9 Hypothyroidism, unspecified; R56.9 Unspecified convulsions; E78.5 Hyperlipidemia, unspecified; I10 Essential (primary) hypertension; Z91.018 Allergy to other foods; Z29.9 Encounter for prophylactic measures, unspecified; Z88.8 Allergy status to other drugs, medicaments and biological substances
CPT/HCPCS: 74018-TC-FY; 96360; 96372; 99285-25; C9803; G0378; U0003; U0005

== ENCOUNTER 2021-08-29 20:23 | Observation (INO) | payer OTHER ==
[2021-08-29 22:35] LABS: BASO % 0.6 % (0-2.0); EOS % 1.2 % (0-4.5); HEMATOCRIT 38.8 % (32.4-45.2); HEMOGLOBIN 13.1 GM/dL (10.7-15.3); LYMPH % 31.5 % (8-40); MCH 31.4 pg (25.7-33.7); MCHC 33.8 g/dl (32.0-36.0); MEAN PLT VOLUME 10.3 fl (7.5-11.1); MONO % 8.5 % (3.8-10.2); NEUT % 58.2 % (42.8-82.8); PLATELET COUNT 166 10^3/uL (134-434); RBC 4.17 M/mm3 (3.60-5.2)
[2021-08-29 22:45] LABS: INR 1.04 (0.83-1.09)
[2021-08-29 22:48] LABS: ACTIVATED PTT 42.3 SECONDS (25.2-36.5)
[2021-08-29 23:04] LABS: EPI CELLS >36 /uL (0-25.1); HYALINE CASTS 21 /uL (0-3.1); PH,URINE 8.5 (5.0-8.0); URINE APPEARANCE TURBID; URINE BACTERIA >9,000 /uL (0-1359); URINE BILIRUBIN NEGATIVE (NEGATIVE); URINE COLOR YELLOW; URINE GLUCOSE (UA) NEGATIVE (NEGATIVE); URINE KETONE NEGATIVE (NEGATIVE); URINE LEUK ESTERASE 3+ (NEGATIVE); URINE NITRITE NEGATIVE (NEGATIVE); URINE PROTEIN 2+ (NEGATIVE); URINE UROBILINOGEN 0.2 mg/dL (0.2-1.0); URINE WBC 2949 /uL (0-25.8)
[2021-08-29 23:05] LABS: ALBUMIN 3.2 g/dl (3.4-5.0); BLOOD UREA NITROGEN 20.7 mg/dL (7-18); CALCIUM 9.1 mg/dL (8.5-10.1)
[2021-08-29 23:08] LABS: CREATININE 0.7 mg/dL (0.55-1.3)
[2021-08-29 23:10] LABS: BILIRUBIN,TOTAL 0.2 mg/dL (0.2-1); TOT PROT 7.9 g/dl (6.4-8.2)
[2021-08-29] MEDS ORDERED: CEFTRIAXONE 1 GM in DEXTROSE 5%-WATER - 100 ML IVPB ONE (23:13)
[2021-08-29 23:39] LABS: URINE RBC 42 /uL (0-23.9)
[2021-08-29] MEDS ORDERED: CEFTRIAXONE 1 GM/50 ML BAG ONE (23:56)
[2021-08-30] MEDS: LACTATED RINGERS SOLUTION 1,000 ML IV SCH (04:40)
[2021-08-30] MEDS ORDERED: LEVOTHYROXINE NA 50 MCG TABLET (FP) PO SCH (07:00)
[2021-08-30] MEDS ORDERED: PNEUMOC 13-VAL CONJ-DIP CRM/PF 0.5 ML DISP.SYRIN IM ONE (09:00)
[2021-08-30] MEDS ORDERED: BISACODYL 10 MG SUPP.RECT PR PRN (09:02)
[2021-08-30] MEDS ORDERED: DEXTROSE 5%-WATER - 50 ML IVPB ONE (09:21)
[2021-08-30] MEDS ORDERED: cefTRIAXone SODIUM 1 GM VIAL ONE (09:21)
[2021-08-30] MEDS ORDERED: OXcarbazepine 150 MG TABLET (UD) PO SCH (10:00)
[2021-08-30] MEDS ORDERED: amLODIPine BESYLATE 10 MG TABLET (FP) PO SCH (10:00)
[2021-08-30] MEDS ORDERED: CEFTRIAXONE 1 GM in DEXTROSE 5%-WATER - 50 ML IVPB SCH (10:00)
[2021-08-30] MEDS ORDERED: ENOXAPARIN NA (PORCINE) 40 MG/0.4 ML DISP.SYRIN SQ SCH (10:00)
[2021-08-30] MEDS: ARTIFICIAL TEARS (POLYVINYL ALCOHOL) OPTH DROPS OU SCH ×2 (14:20→22:03)
[2021-08-30] MEDS: POLYETHYLENE GLYCOL (HEALTHYLAX) 3350 17 GM PACKET PO SCH (15:00)
[2021-08-30] MEDS: ATORVASTATIN CA 10 MG TABLET (FP) GT SCH (22:00)
[2021-08-30] MEDS ORDERED: ATORVASTATIN CA 40 MG TABLET (FP) PO SCH (22:00)
[2021-08-30] MEDS: OXcarbazepine 300 MG/5 ML UNIT DOSE CUPS PO SCH (22:04)
[2021-08-31] MEDS: LACTATED RINGERS SOLUTION 1,000 ML IV SCH ×2 (07:06→07:08)
[2021-08-31] MEDS: ARTIFICIAL TEARS (POLYVINYL ALCOHOL) OPTH DROPS OU SCH ×3 (07:07→22:46)
[2021-08-31] MEDS: LEVOTHYROXINE NA 50 MCG TABLET (FP) GT SCH (07:07)
[2021-08-31 07:41] LABS: BASO % 0.7 % (0-2.0); EOS % 1.8 % (0-4.5); HEMATOCRIT 35.4 % (32.4-45.2); HEMOGLOBIN 11.9 GM/dL (10.7-15.3); MCH 31.4 pg (25.7-33.7); MCHC 33.5 g/dl (32.0-36.0); MEAN CELL VOLUME 93.8 fl (80-96); MEAN PLT VOLUME 10.8 fl (7.5-11.1); MONO % 10.7 % (3.8-10.2); NEUT % 55.8 % (42.8-82.8); PLATELET COUNT 141 10^3/uL (134-434); RBC 3.78 M/mm3 (3.60-5.2); RDW 13.9 % (11.6-15.6); WHITE BLOOD COUNT 4.6 K/mm3 (4.0-10.0)
[2021-08-31 08:08] LABS: BLOOD UREA NITROGEN 19.8 mg/dL (7-18); CALCIUM 9.3 mg/dL (8.5-10.1); MAGNESIUM 2.3 mg/dL (1.8-2.4)
[2021-08-31 08:09] LABS: ALBUMIN 3.1 g/dl (3.4-5.0)
[2021-08-31 08:11] LABS: CREATININE 0.6 mg/dL (0.55-1.3); PHOSPHOROUS 4.4 mg/dL (2.5-4.9)
[2021-08-31 08:12] LABS: BILIRUBIN,TOTAL 0.6 mg/dL (0.2-1); TOT PROT 6.9 g/dl (6.4-8.2)
[2021-08-31] MEDS: amLODIPine BESYLATE 10 MG TABLET (FP) GT SCH (10:09)
[2021-08-31] MEDS: POLYETHYLENE GLYCOL (HEALTHYLAX) 3350 17 GM PACKET PO SCH (10:09)
[2021-08-31] MEDS: OXcarbazepine 300 MG/5 ML UNIT DOSE CUPS PO SCH ×2 (10:10→22:45)
[2021-08-31] MEDS: ENOXAPARIN NA (PORCINE) 80 MG/0.8 ML DISP.SYRIN SQ SCH (10:15)
[2021-08-31] MEDS ORDERED: cefTRIAXone SODIUM 1 GM VIAL ONE (13:37)
[2021-08-31] MEDS ORDERED: DEXTROSE 5%-WATER - 50 ML IVPB ONE (13:38)
[2021-08-31] MEDS ORDERED: CEFTRIAXONE 1 GM in DEXTROSE 5%-WATER - 50 ML IVPB ONE (14:00)
[2021-08-31 15:42] VITALS: BMI 23.8
[2021-08-31] MEDS: ATORVASTATIN CA 10 MG TABLET (FP) GT SCH (22:44)
[2021-09-01] MEDS: LEVOTHYROXINE NA 50 MCG TABLET (FP) GT SCH (06:59)
[2021-09-01] MEDS: ARTIFICIAL TEARS (POLYVINYL ALCOHOL) OPTH DROPS OU SCH (06:59)
[2021-09-01] MEDS ORDERED: cefTRIAXone SODIUM 1 GM VIAL IVPB ONE (08:00)
[2021-09-01] MEDS: amLODIPine BESYLATE 10 MG TABLET (FP) GT SCH (09:13)
[2021-09-01] MEDS: ENOXAPARIN NA (PORCINE) 80 MG/0.8 ML DISP.SYRIN SQ SCH (09:13)
[2021-09-01] MEDS: OXcarbazepine 300 MG/5 ML UNIT DOSE CUPS PO SCH (09:13)
[2021-09-01] MEDS: POLYETHYLENE GLYCOL (HEALTHYLAX) 3350 17 GM PACKET PO SCH (09:13)
[2021-09-01 14:18] VITALS: BP 118/57; PULSE 58; TEMP 97.7
== END 2021-09-01 13:30 | disposition home health service (06) ==
LOC: JER 20:23 → JERBED 23:52 → INTOOBSV 23:52 → J7W 08-30 02:59
PROVIDERS: ADMIT Hospitalist; ATTEND Internal Medicine
PROC: 3E03329 Introduction of Other Anti-infective into Peripheral Vein, Percutaneous Approach (ICD-10-PCS; principal; 2021-08-29)
PROC: 3E023GC Introduction of Other Therapeutic Substance into Muscle, Percutaneous Approach (ICD-10-PCS; 2021-08-29)
DX: N39.0 Urinary tract infection, site not specified (principal); K56.41 Fecal impaction; Z93.1 Gastrostomy status; R14.0 Abdominal distension (gaseous); Z86.718 Personal history of other venous thrombosis and embolism; G30.9 Alzheimer's disease, unspecified; F02.80 Dementia in other diseases classified elsewhere, unspecified severity, without behavioral disturbance, psychotic disturbance, mood disturbance, and anxiety; G20 Parkinson's disease; E03.9 Hypothyroidism, unspecified; G40.909 Epilepsy, unspecified, not intractable, without status epilepticus; I10 Essential (primary) hypertension; E78.5 Hyperlipidemia, unspecified; Z88.8 Allergy status to other drugs, medicaments and biological substances; Z91.018 Allergy to other foods
CPT/HCPCS: 36415; 71045-TC-FY; 74177-TC; 80053; 81003; 82977; 83605; 83690; 83735; 84100; 85025; 85610; 85730; 87086; 87186; 93005; 93010; 96365; 96366; 96372; 96375; 99285-25; C9803-CS; G0378; U0003; U0005

== ENCOUNTER 2021-09-18 12:02 | Inpatient (IN) | payer OTHER ==
[2021-09-18 15:47] LABS: BASO % 0.8 % (0-2.0); EOS % 2.5 % (0-4.5); HEMATOCRIT 40.6 % (32.4-45.2); HEMOGLOBIN 13.4 GM/dL (10.7-15.3); LYMPH % 36.2 % (8-40); MCH 30.9 pg (25.7-33.7); MEAN CELL VOLUME 93.7 fl (80-96); MEAN PLT VOLUME 11.6 fl (7.5-11.1); NEUT % 51.5 % (42.8-82.8); PLATELET COUNT 165 10^3/uL (134-434); RBC 4.33 M/mm3 (3.60-5.2); RDW 14.1 % (11.6-15.6)
[2021-09-18 15:52] LABS: EPI CELLS 8 /uL (0-25.1); HYALINE CASTS 9 /uL (0-3.1); URINE APPEARANCE CLOUDY; URINE BACTERIA 4133 /uL (0-1359); URINE BILIRUBIN NEGATIVE (NEGATIVE); URINE COLOR YELLOW; URINE GLUCOSE (UA) NEGATIVE (NEGATIVE); URINE KETONE NEGATIVE (NEGATIVE); URINE LEUK ESTERASE 3+ (NEGATIVE); URINE NITRITE POSITIVE (NEGATIVE); URINE PROTEIN NEGATIVE (NEGATIVE); URINE RBC 25 /uL (0-23.9); URINE WBC 952 /uL (0-25.8)
[2021-09-18 15:55] LABS: INR 1.09 (0.83-1.09); PROTHROMBIN TIME (PATIENT) 12.6 SEC (9.7-13.0)
[2021-09-18] MEDS ORDERED: PIPERACILLIN/TAZOB 3.375 GM 3.375 GM in DEXTROSE 5%-WATER - 50 ML IVPB ONE (16:10)
[2021-09-18 16:18] LABS: CALCIUM 9.6 mg/dL (8.5-10.1)
[2021-09-18 16:19] LABS: ALBUMIN 3.7 g/dl (3.4-5.0); BLOOD UREA NITROGEN 18.2 mg/dL (7-18); MAGNESIUM 2.5 mg/dL (1.8-2.4)
[2021-09-18 16:22] LABS: CREATININE 0.7 mg/dL (0.55-1.3)
[2021-09-18] MEDS ORDERED: SODIUM CHLORIDE 0.9% 500 ML INFUS.BAG IV ONE (16:23)
[2021-09-18 16:24] LABS: BILIRUBIN,TOTAL 0.3 mg/dL (0.2-1); TOT PROT 8.4 g/dl (6.4-8.2)
[2021-09-18] MEDS ORDERED: SENNOSIDES 8.6MG TABLET (FP) PO ONE ×2 (16:24→16:31)
[2021-09-18] MEDS ORDERED: PIPERACILLIN/TAZOB 3.375 GM 3.375 GM/50 ML BAG IVPB ONE (16:25)
[2021-09-18] MEDS ORDERED: MINERAL OIL ENEMA 133 ML ENEMA PR ONE (18:13)
[2021-09-18] MEDS ORDERED: POLYETHYLENE GLYCOL (HEALTHYLAX) 3350 17 GM PACKET ONE (22:36)
[2021-09-18] MEDS ORDERED: ATORVASTATIN CA 10 MG TABLET (FP) ONE (22:37)
[2021-09-18] MEDS: OXcarbazepine 150 MG TABLET (UD) PO SCH (23:04)
[2021-09-18] MEDS: ATORVASTATIN CA 10 MG TABLET (FP) PO SCH (23:52)
[2021-09-18] MEDS: POLYETHYLENE GLYCOL (HEALTHYLAX) 3350 17 GM PACKET PO SCH (23:52)
[2021-09-19] MEDS ORDERED: DEXTROSE 5%-WATER - 50 ML IVPB ONE ×2 (01:16→17:04)
[2021-09-19] MEDS ORDERED: PIPERACILLIN/TAZOBACTAM 3.375 GM VIAL IVPB ONE ×3 (01:16→17:04)
[2021-09-19] MEDS: PIPERACILLIN/TAZOB 3.375 GM 3.375 GM in DEXTROSE 5%-WATER - 50 ML IVPB SCH ×3 (01:22→17:34)
[2021-09-19 06:59] LABS: BASO % 0.9 % (0-2.0); HEMATOCRIT 35.1 % (32.4-45.2); HEMOGLOBIN 11.3 GM/dL (10.7-15.3); LYMPH % 33.3 % (8-40); MCH 30.3 pg (25.7-33.7); MCHC 32.3 g/dl (32.0-36.0); MEAN CELL VOLUME 93.7 fl (80-96); MONO % 10.5 % (3.8-10.2); NEUT % 51.3 % (42.8-82.8); PLATELET COUNT 173 10^3/uL (134-434); RBC 3.75 M/mm3 (3.60-5.2); RDW 13.6 % (11.6-15.6); WHITE BLOOD COUNT 4.3 K/mm3 (4.0-10.0)
[2021-09-19 07:19] LABS: BLOOD UREA NITROGEN 16.6 mg/dL (7-18); MAGNESIUM 2.2 mg/dL (1.8-2.4)
[2021-09-19 07:21] LABS: PHOSPHOROUS 4.1 mg/dL (2.5-4.9)
[2021-09-19 07:22] LABS: BILIRUBIN,TOTAL 0.4 mg/dL (0.2-1); CREATININE 0.7 mg/dL (0.55-1.3); TOT PROT 6.8 g/dl (6.4-8.2)
[2021-09-19 07:52] LABS: ALBUMIN 2.9 g/dl (3.4-5.0)
[2021-09-19] MEDS ORDERED: GLYCERIN 1 RECTAL SUPPOSITORY, ADULT RC PRN ×2 (09:52→11:21)
[2021-09-19] MEDS ORDERED: ENOXAPARIN NA (PORCINE) 40 MG/0.4 ML DISP.SYRIN SQ SCH (10:00)
[2021-09-19] MEDS: POLYETHYLENE GLYCOL (HEALTHYLAX) 3350 17 GM PACKET PO SCH ×2 (10:40→21:39)
[2021-09-19] MEDS: ENOXAPARIN NA (PORCINE) 80 MG/0.8 ML DISP.SYRIN SQ SCH (10:40)
[2021-09-19] MEDS: PRENATAL VITAMINS W/ FOLIC ACID TABLET (FP) PO SCH (10:42)
[2021-09-19] MEDS: LEVOTHYROXINE NA 50 MCG TABLET (FP) PO SCH (10:43)
[2021-09-19] MEDS: OXcarbazepine 150 MG TABLET (UD) PO SCH ×2 (10:43→21:40)
[2021-09-19] MEDS: amLODIPine BESYLATE 10 MG TABLET (FP) PO SCH (10:43)
[2021-09-19] MEDS: ARTIFICIAL TEARS (POLYVINYL ALCOHOL) OPTH DROPS OU SCH ×2 (13:35→21:48)
[2021-09-19] MEDS: ATORVASTATIN CA 10 MG TABLET (FP) PO SCH (21:39)
[2021-09-20] MEDS ORDERED: PIPERACILLIN/TAZOBACTAM 3.375 GM VIAL IVPB ONE ×3 (01:17→16:44)
[2021-09-20] MEDS ORDERED: DEXTROSE 5%-WATER - 50 ML IVPB ONE ×3 (01:17→16:44)
[2021-09-20] MEDS: PIPERACILLIN/TAZOB 3.375 GM 3.375 GM in DEXTROSE 5%-WATER - 50 ML IVPB SCH ×3 (01:21→17:25)
[2021-09-20] MEDS: LEVOTHYROXINE NA 50 MCG TABLET (FP) PO SCH (06:09)
[2021-09-20] MEDS: ARTIFICIAL TEARS (POLYVINYL ALCOHOL) OPTH DROPS OU SCH ×3 (06:11→21:58)
[2021-09-20] MEDS: OXcarbazepine 150 MG TABLET (UD) PO SCH ×2 (09:46→21:58)
[2021-09-20] MEDS: POLYETHYLENE GLYCOL (HEALTHYLAX) 3350 17 GM PACKET PO SCH ×2 (09:46→21:57)
[2021-09-20] MEDS: amLODIPine BESYLATE 10 MG TABLET (FP) PO SCH (09:46)
[2021-09-20] MEDS: ENOXAPARIN NA (PORCINE) 80 MG/0.8 ML DISP.SYRIN SQ SCH (09:46)
[2021-09-20] MEDS: PRENATAL VITAMINS W/ FOLIC ACID TABLET (FP) PO SCH (09:46)
[2021-09-20 12:45] LABS: BASO % 0.6 % (0-2.0); EOS % 2.9 % (0-4.5); HEMOGLOBIN 12.5 GM/dL (10.7-15.3); LYMPH % 29.9 % (8-40); MCH 31.1 pg (25.7-33.7); MCHC 33.7 g/dl (32.0-36.0); MEAN CELL VOLUME 92.4 fl (80-96); MONO % 12.4 % (3.8-10.2); NEUT % 54.2 % (42.8-82.8); PLATELET COUNT 160 10^3/uL (134-434); RDW 13.9 % (11.6-15.6); WHITE BLOOD COUNT 4.3 K/mm3 (4.0-10.0)
[2021-09-20 13:10] LABS: BLOOD UREA NITROGEN 15.2 mg/dL (7-18); MAGNESIUM 2.2 mg/dL (1.8-2.4)
[2021-09-20 13:13] LABS: CREATININE 0.8 mg/dL (0.55-1.3); PHOSPHOROUS 4.2 mg/dL (2.5-4.9)
[2021-09-20] MEDS: ATORVASTATIN CA 10 MG TABLET (FP) PO SCH (21:57)
[2021-09-21] MEDS ORDERED: PIPERACILLIN/TAZOBACTAM 3.375 GM VIAL IVPB ONE ×3 (00:23→16:45)
[2021-09-21] MEDS: PIPERACILLIN/TAZOB 3.375 GM 3.375 GM in DEXTROSE 5%-WATER - 50 ML IVPB SCH ×3 (02:47→16:59)
[2021-09-21] MEDS: ARTIFICIAL TEARS (POLYVINYL ALCOHOL) OPTH DROPS OU SCH ×3 (05:41→21:43)
[2021-09-21] MEDS: LEVOTHYROXINE NA 50 MCG TABLET (FP) PO SCH (06:09)
[2021-09-21 08:48] LABS: BASO % 0.4 % (0-2.0); EOS % 2.2 % (0-4.5); HEMATOCRIT 36.5 % (32.4-45.2); LYMPH % 26.7 % (8-40); MCH 30.8 pg (25.7-33.7); MEAN CELL VOLUME 93.3 fl (80-96); MEAN PLT VOLUME 10.8 fl (7.5-11.1); MONO % 10.1 % (3.8-10.2); NEUT % 60.6 % (42.8-82.8); PLATELET COUNT 159 10^3/uL (134-434); RBC 3.91 M/mm3 (3.60-5.2); RDW 14.1 % (11.6-15.6); WHITE BLOOD COUNT 4.5 K/mm3 (4.0-10.0)
[2021-09-21 09:09] LABS: BLOOD UREA NITROGEN 17.1 mg/dL (7-18); MAGNESIUM 2.2 mg/dL (1.8-2.4)
[2021-09-21 09:13] LABS: CREATININE 0.8 mg/dL (0.55-1.3); PHOSPHOROUS 4.3 mg/dL (2.5-4.9)
[2021-09-21] MEDS ORDERED: DEXTROSE 5%-WATER - 50 ML IVPB ONE ×2 (10:31→16:45)
[2021-09-21] MEDS: PRENATAL VITAMINS W/ FOLIC ACID TABLET (FP) PO SCH (10:38)
[2021-09-21] MEDS: POLYETHYLENE GLYCOL (HEALTHYLAX) 3350 17 GM PACKET PO SCH ×2 (10:38→21:42)
[2021-09-21] MEDS: amLODIPine BESYLATE 10 MG TABLET (FP) PO SCH (10:38)
[2021-09-21] MEDS: OXcarbazepine 150 MG TABLET (UD) PO SCH ×2 (10:38→21:42)
[2021-09-21] MEDS: ENOXAPARIN NA (PORCINE) 80 MG/0.8 ML DISP.SYRIN SQ SCH (10:38)
[2021-09-21 20:32] VITALS: BMI 23.2
[2021-09-21] MEDS: ATORVASTATIN CA 10 MG TABLET (FP) PO SCH (21:42)
[2021-09-22] MEDS ORDERED: DEXTROSE 5%-WATER - 50 ML IVPB ONE ×3 (00:33→16:48)
[2021-09-22] MEDS ORDERED: PIPERACILLIN/TAZOBACTAM 3.375 GM VIAL IVPB ONE ×3 (00:33→16:48)
[2021-09-22] MEDS: PIPERACILLIN/TAZOB 3.375 GM 3.375 GM in DEXTROSE 5%-WATER - 50 ML IVPB SCH ×3 (02:15→16:59)
[2021-09-22] MEDS: ARTIFICIAL TEARS (POLYVINYL ALCOHOL) OPTH DROPS OU SCH ×2 (05:38→13:13)
[2021-09-22] MEDS: LEVOTHYROXINE NA 50 MCG TABLET (FP) PO SCH (06:11)
[2021-09-22] MEDS: PRENATAL VITAMINS W/ FOLIC ACID TABLET (FP) PO SCH (11:32)
[2021-09-22] MEDS: amLODIPine BESYLATE 10 MG TABLET (FP) PO SCH (11:32)
[2021-09-22] MEDS: OXcarbazepine 150 MG TABLET (UD) PO SCH ×2 (11:32→22:48)
[2021-09-22] MEDS: POLYETHYLENE GLYCOL (HEALTHYLAX) 3350 17 GM PACKET PO SCH ×2 (11:33→22:48)
[2021-09-22] MEDS: ENOXAPARIN NA (PORCINE) 80 MG/0.8 ML DISP.SYRIN SQ SCH (11:33)
[2021-09-22] MEDS: ATORVASTATIN CA 10 MG TABLET (FP) PO SCH (22:48)
[2021-09-23] MEDS: ARTIFICIAL TEARS (POLYVINYL ALCOHOL) OPTH DROPS OU SCH ×4 (00:47→22:40)
[2021-09-23] MEDS ORDERED: DEXTROSE 5%-WATER - 50 ML IVPB ONE ×3 (00:52→17:00)
[2021-09-23] MEDS ORDERED: PIPERACILLIN/TAZOBACTAM 3.375 GM VIAL IVPB ONE ×3 (00:52→17:00)
[2021-09-23] MEDS: PIPERACILLIN/TAZOB 3.375 GM 3.375 GM in DEXTROSE 5%-WATER - 50 ML IVPB SCH ×3 (01:11→17:07)
[2021-09-23] MEDS: LEVOTHYROXINE NA 50 MCG TABLET (FP) PO SCH (06:30)
[2021-09-23 09:22] LABS: BASO % 0.6 % (0-2.0); EOS % 2.1 % (0-4.5); HEMATOCRIT 34.7 % (32.4-45.2); HEMOGLOBIN 11.8 GM/dL (10.7-15.3); MCH 31.3 pg (25.7-33.7); MEAN CELL VOLUME 91.9 fl (80-96); MEAN PLT VOLUME 10.5 fl (7.5-11.1); MONO % 10.7 % (3.8-10.2); NEUT % 66.6 % (42.8-82.8); PLATELET COUNT 146 10^3/uL (134-434); RBC 3.78 M/mm3 (3.60-5.2); WHITE BLOOD COUNT 5.1 K/mm3 (4.0-10.0)
[2021-09-23 09:33] LABS: CALCIUM 9.2 mg/dL (8.5-10.1)
[2021-09-23 09:35] LABS: BLOOD UREA NITROGEN 22.7 mg/dL (7-18)
[2021-09-23 09:36] LABS: MAGNESIUM 2.3 mg/dL (1.8-2.4)
[2021-09-23 09:37] LABS: PHOSPHOROUS 3.9 mg/dL (2.5-4.9)
[2021-09-23 09:38] LABS: CREATININE 0.7 mg/dL (0.55-1.3)
[2021-09-23] MEDS: PRENATAL VITAMINS W/ FOLIC ACID TABLET (FP) PO SCH (10:03)
[2021-09-23] MEDS: OXcarbazepine 150 MG TABLET (UD) PO SCH ×2 (10:03→22:40)
[2021-09-23] MEDS: POLYETHYLENE GLYCOL (HEALTHYLAX) 3350 17 GM PACKET PO SCH ×2 (10:04→22:40)
[2021-09-23] MEDS: ENOXAPARIN NA (PORCINE) 80 MG/0.8 ML DISP.SYRIN SQ SCH (10:04)
[2021-09-23] MEDS: amLODIPine BESYLATE 10 MG TABLET (FP) PO SCH (10:04)
[2021-09-23] MEDS ORDERED: ACETAMINOPHEN 1000 MG/100 ML BAG IVPB ONE (11:52)
[2021-09-23] MEDS ORDERED: DEXTROSE 5%-WATER 100 ML IVPB ONE (18:23)
[2021-09-23] MEDS ORDERED: MEROPENEM 1 GM VIAL (RESTRICTED TO ID) IVPB ONE (18:23)
[2021-09-23] MEDS: MEROPENEM 1 GM in DEXTROSE 5%-WATER 100 ML IVPB SCH (18:27)
[2021-09-23] MEDS: ATORVASTATIN CA 10 MG TABLET (FP) PO SCH (22:40)
[2021-09-24] MEDS ORDERED: MEROPENEM 1 GM VIAL (RESTRICTED TO ID) IVPB ONE ×3 (03:44→17:25)
[2021-09-24] MEDS ORDERED: DEXTROSE 5%-WATER 100 ML IVPB ONE ×3 (03:44→17:25)
[2021-09-24] MEDS: MEROPENEM 1 GM in DEXTROSE 5%-WATER 100 ML IVPB SCH ×3 (03:59→17:27)
[2021-09-24] MEDS: ARTIFICIAL TEARS (POLYVINYL ALCOHOL) OPTH DROPS OU SCH ×3 (06:30→22:54)
[2021-09-24] MEDS: LEVOTHYROXINE NA 50 MCG TABLET (FP) PO SCH (06:30)
[2021-09-24] MEDS: AMINO ACIDS/PROTEIN HYDROLYS 30 ML LIQUID.PKT PO SCH ×2 (09:17→17:27)
[2021-09-24] MEDS: POLYETHYLENE GLYCOL (HEALTHYLAX) 3350 17 GM PACKET PO SCH ×2 (09:17→22:54)
[2021-09-24] MEDS: ENOXAPARIN NA (PORCINE) 80 MG/0.8 ML DISP.SYRIN SQ SCH (09:17)
[2021-09-24] MEDS: amLODIPine BESYLATE 10 MG TABLET (FP) PO SCH (09:18)
[2021-09-24] MEDS: OXcarbazepine 150 MG TABLET (UD) PO SCH ×2 (09:19→22:54)
[2021-09-24] MEDS: PRENATAL VITAMINS W/ FOLIC ACID TABLET (FP) PO SCH (09:19)
[2021-09-24 12:55] LABS: BASO % 0.6 % (0-2.0); EOS % 1.9 % (0-4.5); HEMATOCRIT 34.7 % (32.4-45.2); HEMOGLOBIN 11.3 GM/dL (10.7-15.3); MCH 30.6 pg (25.7-33.7); MCHC 32.7 g/dl (32.0-36.0); MEAN CELL VOLUME 93.6 fl (80-96); MEAN PLT VOLUME 11.5 fl (7.5-11.1); MONO % 9.7 % (3.8-10.2); NEUT % 71.8 % (42.8-82.8); PLATELET COUNT 146 10^3/uL (134-434); RBC 3.71 M/mm3 (3.60-5.2); WHITE BLOOD COUNT 6.1 K/mm3 (4.0-10.0)
[2021-09-24 13:19] LABS: ALBUMIN 2.7 g/dl (3.4-5.0); BLOOD UREA NITROGEN 26.3 mg/dL (7-18); MAGNESIUM 2.3 mg/dL (1.8-2.4)
[2021-09-24 13:22] LABS: PHOSPHOROUS 3.3 mg/dL (2.5-4.9)
[2021-09-24 13:23] LABS: CREATININE 0.6 mg/dL (0.55-1.3)
[2021-09-24 13:24] LABS: BILIRUBIN,TOTAL 0.3 mg/dL (0.2-1); TOT PROT 6.8 g/dl (6.4-8.2)
[2021-09-24] MEDS: ATORVASTATIN CA 10 MG TABLET (FP) PO SCH (22:54)
[2021-09-25] MEDS ORDERED: MEROPENEM 1 GM VIAL (RESTRICTED TO ID) IVPB ONE ×2 (02:22→17:03)
[2021-09-25] MEDS ORDERED: DEXTROSE 5%-WATER 100 ML IVPB ONE ×2 (02:22→17:03)
[2021-09-25] MEDS: MEROPENEM 1 GM in DEXTROSE 5%-WATER 100 ML IVPB SCH (02:46)
[2021-09-25] MEDS: LEVOTHYROXINE NA 50 MCG TABLET (FP) PO SCH (06:40)
[2021-09-25] MEDS: ARTIFICIAL TEARS (POLYVINYL ALCOHOL) OPTH DROPS OU SCH ×3 (06:40→22:47)
[2021-09-25] MEDS: AMINO ACIDS/PROTEIN HYDROLYS 30 ML LIQUID.PKT PO SCH ×2 (08:46→16:38)
[2021-09-25 09:39] LABS: HEMATOCRIT 35.4 % (32.4-45.2); HEMOGLOBIN 11.5 GM/dL (10.7-15.3); MCH 30.5 pg (25.7-33.7); MCHC 32.3 g/dl (32.0-36.0); MEAN CELL VOLUME 94.2 fl (80-96); MEAN PLT VOLUME 11.5 fl (7.5-11.1); PLATELET COUNT 150 10^3/uL (134-434); RBC 3.76 M/mm3 (3.60-5.2); RDW 14.2 % (11.6-15.6)
[2021-09-25] MEDS ORDERED: PIPERACILLIN/TAZOBACTAM 3.375 GM VIAL IVPB ONE (09:44)
[2021-09-25] MEDS ORDERED: DEXTROSE 5%-WATER - 50 ML IVPB ONE (09:44)
[2021-09-25 09:46] LABS: WHITE BLOOD COUNT 10.6 K/mm3 (4.0-10.0)
[2021-09-25] MEDS ORDERED: PIPERACILLIN/TAZOB 3.375 GM 3.375 GM in DEXTROSE 5%-WATER - 50 ML IVPB SCH (10:00)
[2021-09-25] MEDS: POLYETHYLENE GLYCOL (HEALTHYLAX) 3350 17 GM PACKET PO SCH ×2 (10:01→22:46)
[2021-09-25] MEDS: ENOXAPARIN NA (PORCINE) 80 MG/0.8 ML DISP.SYRIN SQ SCH (10:01)
[2021-09-25] MEDS: amLODIPine BESYLATE 10 MG TABLET (FP) PO SCH (10:01)
[2021-09-25] MEDS: PRENATAL VITAMINS W/ FOLIC ACID TABLET (FP) PO SCH (10:02)
[2021-09-25] MEDS: OXcarbazepine 150 MG TABLET (UD) PO SCH ×2 (10:02→22:46)
[2021-09-25 11:41] LABS: ANISOCYTOSIS 1+; MACROCYTOSIS 1+
[2021-09-25 12:36] LABS: ALBUMIN 2.7 g/dl (3.4-5.0); CALCIUM 8.9 mg/dL (8.5-10.1); MAGNESIUM 2.4 mg/dL (1.8-2.4)
[2021-09-25 12:39] LABS: CREATININE 0.7 mg/dL (0.55-1.3); PHOSPHOROUS 3.4 mg/dL (2.5-4.9)
[2021-09-25 12:40] LABS: TOT PROT 6.8 g/dl (6.4-8.2)
[2021-09-25 12:41] LABS: BILIRUBIN,TOTAL 0.3 mg/dL (0.2-1)
[2021-09-25] MEDS ORDERED: MEROPENEM 1 GM in DEXTROSE 5%-WATER 100 ML IVPB SCH (18:00)
[2021-09-25] MEDS: ATORVASTATIN CA 10 MG TABLET (FP) PO SCH (22:46)
[2021-09-26] MEDS: IMIPENEM/CILASTATIN SODIUM 500 MG in SODIUM CHLORIDE 100 ML IVPB SCH ×3 (02:28→18:04)
[2021-09-26] MEDS: ARTIFICIAL TEARS (POLYVINYL ALCOHOL) OPTH DROPS OU SCH ×3 (06:43→22:06)
[2021-09-26] MEDS: LEVOTHYROXINE NA 50 MCG TABLET (FP) PO SCH (06:43)
[2021-09-26 09:12] LABS: BASO % 0.5 % (0-2.0); EOS % 2.1 % (0-4.5); HEMATOCRIT 32.3 % (32.4-45.2); HEMOGLOBIN 10.6 GM/dL (10.7-15.3); LYMPH % 17.9 % (8-40); MCH 30.7 pg (25.7-33.7); MCHC 32.9 g/dl (32.0-36.0); MEAN CELL VOLUME 93.5 fl (80-96); MEAN PLT VOLUME 10.8 fl (7.5-11.1); MONO % 7.6 % (3.8-10.2); NEUT % 71.9 % (42.8-82.8); PLATELET COUNT 141 10^3/uL (134-434); RBC 3.46 M/mm3 (3.60-5.2); RDW 13.9 % (11.6-15.6); WHITE BLOOD COUNT 5.6 K/mm3 (4.0-10.0)
[2021-09-26] MEDS: PRENATAL VITAMINS W/ FOLIC ACID TABLET (FP) PO SCH (09:24)
[2021-09-26] MEDS: AMINO ACIDS/PROTEIN HYDROLYS 30 ML LIQUID.PKT PO SCH ×2 (09:24→18:04)
[2021-09-26] MEDS: ENOXAPARIN NA (PORCINE) 80 MG/0.8 ML DISP.SYRIN SQ SCH (09:24)
[2021-09-26] MEDS: POLYETHYLENE GLYCOL (HEALTHYLAX) 3350 17 GM PACKET PO SCH ×2 (09:24→22:05)
[2021-09-26] MEDS: amLODIPine BESYLATE 10 MG TABLET (FP) PO SCH (09:24)
[2021-09-26] MEDS: OXcarbazepine 150 MG TABLET (UD) PO SCH ×2 (09:25→22:33)
[2021-09-26 09:39] LABS: ALBUMIN 2.6 g/dl (3.4-5.0); BLOOD UREA NITROGEN 27.6 mg/dL (7-18); CALCIUM 8.8 mg/dL (8.5-10.1); MAGNESIUM 2.5 mg/dL (1.8-2.4)
[2021-09-26 09:42] LABS: CREATININE 0.6 mg/dL (0.55-1.3); PHOSPHOROUS 3.2 mg/dL (2.5-4.9)
[2021-09-26 09:44] LABS: BILIRUBIN,TOTAL 0.3 mg/dL (0.2-1); TOT PROT 6.5 g/dl (6.4-8.2)
[2021-09-26] MEDS ORDERED: PIPERACILLIN/TAZOB 3.375 GM 3.375 GM in DEXTROSE 5%-WATER - 50 ML IVPB SCH (10:00)
[2021-09-26] MEDS: ATORVASTATIN CA 10 MG TABLET (FP) PO SCH (22:06)
[2021-09-27] MEDS: IMIPENEM/CILASTATIN SODIUM 500 MG in SODIUM CHLORIDE 100 ML IVPB SCH ×3 (01:01→17:47)
[2021-09-27] MEDS: LEVOTHYROXINE NA 50 MCG TABLET (FP) PO SCH (06:10)
[2021-09-27] MEDS: ARTIFICIAL TEARS (POLYVINYL ALCOHOL) OPTH DROPS OU SCH ×3 (08:16→21:52)
[2021-09-27 09:00] LABS: BASO % 0.6 % (0-2.0); EOS % 3.1 % (0-4.5); HEMATOCRIT 32.3 % (32.4-45.2); HEMOGLOBIN 10.7 GM/dL (10.7-15.3); LYMPH % 25.2 % (8-40); MCH 30.9 pg (25.7-33.7); MCHC 33.1 g/dl (32.0-36.0); MEAN CELL VOLUME 93.3 fl (80-96); MEAN PLT VOLUME 11.1 fl (7.5-11.1); MONO % 9.7 % (3.8-10.2); NEUT % 61.4 % (42.8-82.8); PLATELET COUNT 141 10^3/uL (134-434); RBC 3.47 M/mm3 (3.60-5.2); RDW 13.8 % (11.6-15.6); WHITE BLOOD COUNT 4.6 K/mm3 (4.0-10.0)
[2021-09-27 09:23] LABS: CALCIUM 8.7 mg/dL (8.5-10.1)
[2021-09-27 09:24] LABS: ALBUMIN 2.5 g/dl (3.4-5.0); MAGNESIUM 2.4 mg/dL (1.8-2.4)
[2021-09-27 09:27] LABS: CREATININE 0.6 mg/dL (0.55-1.3); PHOSPHOROUS 3.3 mg/dL (2.5-4.9)
[2021-09-27 09:28] LABS: BILIRUBIN,TOTAL 0.3 mg/dL (0.2-1); TOT PROT 6.2 g/dl (6.4-8.2)
[2021-09-27] MEDS: ENOXAPARIN NA (PORCINE) 80 MG/0.8 ML DISP.SYRIN SQ SCH (10:12)
[2021-09-27] MEDS: amLODIPine BESYLATE 10 MG TABLET (FP) PO SCH (10:12)
[2021-09-27] MEDS: AMINO ACIDS/PROTEIN HYDROLYS 30 ML LIQUID.PKT PO SCH ×2 (10:12→17:47)
[2021-09-27] MEDS: POLYETHYLENE GLYCOL (HEALTHYLAX) 3350 17 GM PACKET PO SCH ×2 (10:12→21:51)
[2021-09-27] MEDS: OXcarbazepine 150 MG TABLET (UD) PO SCH ×2 (10:13→21:52)
[2021-09-27] MEDS: PRENATAL VITAMINS W/ FOLIC ACID TABLET (FP) PO SCH (10:13)
[2021-09-27] MEDS: ATORVASTATIN CA 10 MG TABLET (FP) PO SCH (21:51)
[2021-09-28] MEDS: IMIPENEM/CILASTATIN SODIUM 500 MG in SODIUM CHLORIDE 100 ML IVPB SCH ×3 (01:39→17:22)
[2021-09-28] MEDS: LEVOTHYROXINE NA 50 MCG TABLET (FP) PO SCH (06:37)
[2021-09-28] MEDS: ARTIFICIAL TEARS (POLYVINYL ALCOHOL) OPTH DROPS OU SCH ×3 (06:37→22:19)
[2021-09-28] MEDS: AMINO ACIDS/PROTEIN HYDROLYS 30 ML LIQUID.PKT PO SCH ×2 (08:36→17:24)
[2021-09-28] MEDS: POLYETHYLENE GLYCOL (HEALTHYLAX) 3350 17 GM PACKET PO SCH ×2 (09:25→22:18)
[2021-09-28] MEDS: amLODIPine BESYLATE 10 MG TABLET (FP) PO SCH (09:25)
[2021-09-28] MEDS: ENOXAPARIN NA (PORCINE) 80 MG/0.8 ML DISP.SYRIN SQ SCH (09:25)
[2021-09-28] MEDS: PRENATAL VITAMINS W/ FOLIC ACID TABLET (FP) PO SCH (09:26)
[2021-09-28] MEDS: OXcarbazepine 150 MG TABLET (UD) PO SCH ×2 (09:27→22:18)
[2021-09-28 09:45] LABS: BASO % 0.5 % (0-2.0); EOS % 2.9 % (0-4.5); HEMATOCRIT 34.7 % (32.4-45.2); HEMOGLOBIN 11.5 GM/dL (10.7-15.3); LYMPH % 22.6 % (8-40); MCH 30.6 pg (25.7-33.7); MCHC 33.1 g/dl (32.0-36.0); MEAN CELL VOLUME 92.3 fl (80-96); MEAN PLT VOLUME 11.4 fl (7.5-11.1); MONO % 10.7 % (3.8-10.2); NEUT % 63.3 % (42.8-82.8); PLATELET COUNT 159 10^3/uL (134-434); RBC 3.75 M/mm3 (3.60-5.2); RDW 14.2 % (11.6-15.6); WHITE BLOOD COUNT 4.4 K/mm3 (4.0-10.0)
[2021-09-28 10:19] LABS: ALBUMIN 2.7 g/dl (3.4-5.0); BLOOD UREA NITROGEN 21.3 mg/dL (7-18); MAGNESIUM 2.4 mg/dL (1.8-2.4)
[2021-09-28 10:22] LABS: CREATININE 0.5 mg/dL (0.55-1.3); PHOSPHOROUS 3.2 mg/dL (2.5-4.9)
[2021-09-28 10:24] LABS: BILIRUBIN,TOTAL 0.4 mg/dL (0.2-1); TOT PROT 6.6 g/dl (6.4-8.2)
[2021-09-28] MEDS: BACITRACIN 15 GM TUBE TOPICAL OINTMENT TP SCH (17:24)
[2021-09-28] MEDS: ACETAMINOPHEN 650 MG/20.3 ML ORAL SOLUTION (CUPS) PEG PRN (18:49)
[2021-09-28] MEDS: ATORVASTATIN CA 10 MG TABLET (FP) PO SCH (22:18)
[2021-09-29] MEDS: IMIPENEM/CILASTATIN SODIUM 500 MG in SODIUM CHLORIDE 100 ML IVPB SCH ×3 (02:17→17:51)
[2021-09-29] MEDS: LEVOTHYROXINE NA 50 MCG TABLET (FP) PO SCH (06:09)
[2021-09-29] MEDS: ARTIFICIAL TEARS (POLYVINYL ALCOHOL) OPTH DROPS OU SCH ×3 (06:09→22:03)
[2021-09-29] MEDS: AMINO ACIDS/PROTEIN HYDROLYS 30 ML LIQUID.PKT PO SCH ×2 (08:50→17:19)
[2021-09-29] MEDS: amLODIPine BESYLATE 10 MG TABLET (FP) PO SCH (09:13)
[2021-09-29] MEDS: POLYETHYLENE GLYCOL (HEALTHYLAX) 3350 17 GM PACKET PO SCH ×2 (09:14→22:03)
[2021-09-29] MEDS: PRENATAL VITAMINS W/ FOLIC ACID TABLET (FP) PO SCH (09:14)
[2021-09-29] MEDS: OXcarbazepine 150 MG TABLET (UD) PO SCH ×2 (09:14→22:03)
[2021-09-29] MEDS: ENOXAPARIN NA (PORCINE) 80 MG/0.8 ML DISP.SYRIN SQ SCH (09:14)
[2021-09-29] MEDS: BACITRACIN 15 GM TUBE TOPICAL OINTMENT TP SCH (09:15)
[2021-09-29 09:24] LABS: BASO % 0.6 % (0-2.0); EOS % 2.4 % (0-4.5); HEMATOCRIT 34.3 % (32.4-45.2); HEMOGLOBIN 11.4 GM/dL (10.7-15.3); LYMPH % 28.1 % (8-40); MCHC 33.3 g/dl (32.0-36.0); MEAN CELL VOLUME 93.1 fl (80-96); MEAN PLT VOLUME 10.8 fl (7.5-11.1); MONO % 10.8 % (3.8-10.2); NEUT % 58.1 % (42.8-82.8); PLATELET COUNT 152 10^3/uL (134-434); RBC 3.68 M/mm3 (3.60-5.2); RDW 14.3 % (11.6-15.6); WHITE BLOOD COUNT 3.8 K/mm3 (4.0-10.0)
[2021-09-29 10:01] LABS: CREATININE 0.5 mg/dL (0.55-1.3)
[2021-09-29 10:02] LABS: BILIRUBIN,TOTAL 0.2 mg/dL (0.2-1); TOT PROT 6.5 g/dl (6.4-8.2)
[2021-09-29 10:10] LABS: ALBUMIN 2.6 g/dl (3.4-5.0); BLOOD UREA NITROGEN 19.8 mg/dL (7-18); MAGNESIUM 2.5 mg/dL (1.8-2.4)
[2021-09-29 10:13] LABS: PHOSPHOROUS 3.9 mg/dL (2.5-4.9)
[2021-09-29] MEDS: ATORVASTATIN CA 10 MG TABLET (FP) PO SCH (22:02)
[2021-09-30] MEDS: IMIPENEM/CILASTATIN SODIUM 500 MG in SODIUM CHLORIDE 100 ML IVPB SCH ×3 (03:59→18:21)
[2021-09-30] MEDS: NYSTATIN POWDER 100,000 UNITS/GM - 15 GM TOPICAL POWDER TP SCH ×2 (03:59→10:03)
[2021-09-30] MEDS: LEVOTHYROXINE NA 50 MCG TABLET (FP) PO SCH (06:40)
[2021-09-30] MEDS: ARTIFICIAL TEARS (POLYVINYL ALCOHOL) OPTH DROPS OU SCH ×3 (06:41→21:56)
[2021-09-30] MEDS: ENOXAPARIN NA (PORCINE) 80 MG/0.8 ML DISP.SYRIN SQ SCH (10:01)
[2021-09-30] MEDS: AMINO ACIDS/PROTEIN HYDROLYS 30 ML LIQUID.PKT PO SCH ×2 (10:01→18:21)
[2021-09-30] MEDS: POLYETHYLENE GLYCOL (HEALTHYLAX) 3350 17 GM PACKET PO SCH ×2 (10:01→21:57)
[2021-09-30 10:02] LABS: BASO % 0.7 % (0-2.0); EOS % 1.7 % (0-4.5); HEMATOCRIT 33.8 % (32.4-45.2); HEMOGLOBIN 10.9 GM/dL (10.7-15.3); LYMPH % 24.3 % (8-40); MCH 30.3 pg (25.7-33.7); MCHC 32.2 g/dl (32.0-36.0); MEAN CELL VOLUME 94.2 fl (80-96); MEAN PLT VOLUME 11.5 fl (7.5-11.1); MONO % 9.9 % (3.8-10.2); NEUT % 63.4 % (42.8-82.8); PLATELET COUNT 177 10^3/uL (134-434); RBC 3.59 M/mm3 (3.60-5.2); RDW 14.3 % (11.6-15.6); WHITE BLOOD COUNT 4.6 K/mm3 (4.0-10.0)
[2021-09-30] MEDS: PRENATAL VITAMINS W/ FOLIC ACID TABLET (FP) PO SCH (10:02)
[2021-09-30] MEDS: OXcarbazepine 150 MG TABLET (UD) PO SCH ×2 (10:02→21:57)
[2021-09-30] MEDS: amLODIPine BESYLATE 10 MG TABLET (FP) PO SCH (10:03)
[2021-09-30] MEDS: ACETAMINOPHEN 650 MG/20.3 ML ORAL SOLUTION (CUPS) PEG PRN (10:04)
[2021-09-30] MEDS: BACITRACIN 15 GM TUBE TOPICAL OINTMENT TP SCH (10:04)
[2021-09-30 10:36] LABS: CALCIUM 8.9 mg/dL (8.5-10.1)
[2021-09-30 10:37] LABS: MAGNESIUM 2.5 mg/dL (1.8-2.4)
[2021-09-30 10:39] LABS: ALBUMIN 2.6 g/dl (3.4-5.0)
[2021-09-30 10:40] LABS: PHOSPHOROUS 3.6 mg/dL (2.5-4.9)
[2021-09-30 10:41] LABS: TOT PROT 6.6 g/dl (6.4-8.2)
[2021-09-30 10:42] LABS: BILIRUBIN,TOTAL 0.3 mg/dL (0.2-1)
[2021-09-30 10:51] LABS: CREATININE 0.5 mg/dL (0.55-1.3)
[2021-09-30] MEDS: ATORVASTATIN CA 10 MG TABLET (FP) PO SCH (21:57)
[2021-10-01] MEDS: IMIPENEM/CILASTATIN SODIUM 500 MG in SODIUM CHLORIDE 100 ML IVPB SCH ×2 (01:03→09:59)
[2021-10-01] MEDS: ARTIFICIAL TEARS (POLYVINYL ALCOHOL) OPTH DROPS OU SCH ×3 (05:21→21:01)
[2021-10-01] MEDS: LEVOTHYROXINE NA 50 MCG TABLET (FP) PO SCH (06:20)
[2021-10-01] MEDS: NYSTATIN POWDER 100,000 UNITS/GM - 15 GM TOPICAL POWDER TP SCH (10:00)
[2021-10-01] MEDS: BACITRACIN 15 GM TUBE TOPICAL OINTMENT TP SCH (10:00)
[2021-10-01] MEDS: AMINO ACIDS/PROTEIN HYDROLYS 30 ML LIQUID.PKT PO SCH ×2 (10:34→19:00)
[2021-10-01] MEDS: ACETAMINOPHEN 650 MG/20.3 ML ORAL SOLUTION (CUPS) PEG PRN (10:34)
[2021-10-01] MEDS: PRENATAL VITAMINS W/ FOLIC ACID TABLET (FP) PO SCH (10:37)
[2021-10-01] MEDS: amLODIPine BESYLATE 10 MG TABLET (FP) PO SCH (10:37)
[2021-10-01] MEDS: ENOXAPARIN NA (PORCINE) 80 MG/0.8 ML DISP.SYRIN SQ SCH (10:37)
[2021-10-01] MEDS: OXcarbazepine 150 MG TABLET (UD) PO SCH (10:37)
[2021-10-01] MEDS ORDERED: LORazepam 2 MG/ML SDV VIAL IVPUSH PRN (11:04)
[2021-10-01] MEDS ORDERED: OXcarbazepine 150 MG TABLET (UD) PO SCH ×2 (11:06→22:00)
[2021-10-01] MEDS ORDERED: OXcarbazepine 150 MG TABLET (UD) PO ONE (11:07)
[2021-10-01] MEDS ORDERED: LORazepam 2 MG/ML SDV VIAL IVPUSH ONE (11:15)
[2021-10-01] MEDS: POLYETHYLENE GLYCOL (HEALTHYLAX) 3350 17 GM PACKET PO SCH ×2 (11:40→21:01)
[2021-10-01] MEDS ORDERED: TIGECYCLINE 50 MG in DEXTROSE 5%-WATER - 100 ML IVPB ONE (13:17)
[2021-10-01] MEDS ORDERED: TIGECYCLINE 100 MG in DEXTROSE 5%-WATER - 100 ML IVPB ONE (14:00)
[2021-10-01] MEDS: OXcarbazepine 300 MG TABLET (UD) PO SCH (21:01)
[2021-10-01] MEDS: ATORVASTATIN CA 10 MG TABLET (FP) PO SCH (21:01)
[2021-10-02] MEDS: LEVOTHYROXINE NA 50 MCG TABLET (FP) PO SCH (06:24)
[2021-10-02] MEDS: ARTIFICIAL TEARS (POLYVINYL ALCOHOL) OPTH DROPS OU SCH ×3 (06:24→21:57)
[2021-10-02 08:05] LABS: BASO % 0.5 % (0-2.0); EOS % 1.6 % (0-4.5); HEMATOCRIT 34.8 % (32.4-45.2); HEMOGLOBIN 11.7 GM/dL (10.7-15.3); LYMPH % 27.2 % (8-40); MCH 31.1 pg (25.7-33.7); MCHC 33.6 g/dl (32.0-36.0); MEAN CELL VOLUME 92.7 fl (80-96); MEAN PLT VOLUME 10.6 fl (7.5-11.1); MONO % 13.5 % (3.8-10.2); NEUT % 57.2 % (42.8-82.8); PLATELET COUNT 185 10^3/uL (134-434); RBC 3.75 M/mm3 (3.60-5.2); RDW 14.3 % (11.6-15.6); WHITE BLOOD COUNT 4.8 K/mm3 (4.0-10.0)
[2021-10-02 08:17] LABS: CALCIUM 8.8 mg/dL (8.5-10.1)
[2021-10-02 08:18] LABS: BLOOD UREA NITROGEN 33.3 mg/dL (7-18); MAGNESIUM 2.4 mg/dL (1.8-2.4)
[2021-10-02 08:21] LABS: CREATININE 0.6 mg/dL (0.55-1.3); PHOSPHOROUS 3.9 mg/dL (2.5-4.9)
[2021-10-02] MEDS: AMINO ACIDS/PROTEIN HYDROLYS 30 ML LIQUID.PKT PO SCH ×2 (10:22→17:47)
[2021-10-02] MEDS: BACITRACIN 15 GM TUBE TOPICAL OINTMENT TP SCH (10:24)
[2021-10-02] MEDS: POLYETHYLENE GLYCOL (HEALTHYLAX) 3350 17 GM PACKET PO SCH ×2 (10:25→21:51)
[2021-10-02] MEDS: amLODIPine BESYLATE 10 MG TABLET (FP) PO SCH (10:25)
[2021-10-02] MEDS: ENOXAPARIN NA (PORCINE) 80 MG/0.8 ML DISP.SYRIN SQ SCH (10:25)
[2021-10-02] MEDS: NYSTATIN POWDER 100,000 UNITS/GM - 15 GM TOPICAL POWDER TP SCH (10:27)
[2021-10-02] MEDS: TIGECYCLINE 50 MG in DEXTROSE 5%-WATER - 100 ML IVPB SCH ×2 (10:29→21:56)
[2021-10-02] MEDS: OXcarbazepine 300 MG TABLET (UD) PO SCH ×2 (10:30→21:51)
[2021-10-02] MEDS: PRENATAL VITAMINS W/ FOLIC ACID TABLET (FP) PO SCH (10:30)
[2021-10-02] MEDS: ATORVASTATIN CA 10 MG TABLET (FP) PO SCH (21:51)
[2021-10-03] MEDS: ARTIFICIAL TEARS (POLYVINYL ALCOHOL) OPTH DROPS OU SCH ×3 (05:56→22:33)
[2021-10-03] MEDS: LEVOTHYROXINE NA 50 MCG TABLET (FP) PO SCH (06:00)
[2021-10-03 08:44] LABS: BASO % 0.6 % (0-2.0); EOS % 1.8 % (0-4.5); HEMATOCRIT 38.3 % (32.4-45.2); HEMOGLOBIN 12.7 GM/dL (10.7-15.3); LYMPH % 23.9 % (8-40); MCH 30.7 pg (25.7-33.7); MCHC 33.1 g/dl (32.0-36.0); MEAN CELL VOLUME 92.7 fl (80-96); MEAN PLT VOLUME 10.5 fl (7.5-11.1); MONO % 11.4 % (3.8-10.2); NEUT % 62.3 % (42.8-82.8); PLATELET COUNT 217 10^3/uL (134-434); RBC 4.13 M/mm3 (3.60-5.2); RDW 14.3 % (11.6-15.6); WHITE BLOOD COUNT 4.8 K/mm3 (4.0-10.0)
[2021-10-03 09:20] LABS: BLOOD UREA NITROGEN 25.2 mg/dL (7-18); CALCIUM 9.1 mg/dL (8.5-10.1); MAGNESIUM 2.5 mg/dL (1.8-2.4)
[2021-10-03 09:21] LABS: BILIRUBIN,TOTAL 0.5 mg/dL (0.2-1); TOT PROT 7.6 g/dl (6.4-8.2)
[2021-10-03 09:23] LABS: CREATININE 0.6 mg/dL (0.55-1.3); PHOSPHOROUS 3.5 mg/dL (2.5-4.9)
[2021-10-03] MEDS: AMINO ACIDS/PROTEIN HYDROLYS 30 ML LIQUID.PKT PO SCH ×2 (11:11→18:47)
[2021-10-03] MEDS: BACITRACIN 15 GM TUBE TOPICAL OINTMENT TP SCH (11:12)
[2021-10-03] MEDS: NYSTATIN POWDER 100,000 UNITS/GM - 15 GM TOPICAL POWDER TP SCH (11:12)
[2021-10-03] MEDS: amLODIPine BESYLATE 10 MG TABLET (FP) PO SCH (11:12)
[2021-10-03] MEDS: POLYETHYLENE GLYCOL (HEALTHYLAX) 3350 17 GM PACKET PO SCH ×2 (11:12→22:31)
[2021-10-03] MEDS: ENOXAPARIN NA (PORCINE) 80 MG/0.8 ML DISP.SYRIN SQ SCH (11:12)
[2021-10-03] MEDS: OXcarbazepine 300 MG TABLET (UD) PO SCH ×2 (11:13→22:32)
[2021-10-03] MEDS: TIGECYCLINE 50 MG in DEXTROSE 5%-WATER - 100 ML IVPB SCH ×2 (11:13→22:32)
[2021-10-03] MEDS: PRENATAL VITAMINS W/ FOLIC ACID TABLET (FP) PO SCH (11:14)
[2021-10-03] MEDS: ATORVASTATIN CA 10 MG TABLET (FP) PO SCH (22:32)
[2021-10-04] MEDS: LEVOTHYROXINE NA 50 MCG TABLET (FP) PO SCH (06:42)
[2021-10-04] MEDS: ARTIFICIAL TEARS (POLYVINYL ALCOHOL) OPTH DROPS OU SCH ×3 (06:42→22:33)
[2021-10-04 07:41] LABS: BASO % 0.5 % (0-2.0); EOS % 0.2 % (0-4.5); HEMATOCRIT 37.7 % (32.4-45.2); HEMOGLOBIN 12.4 GM/dL (10.7-15.3); LYMPH % 16.1 % (8-40); MCH 30.5 pg (25.7-33.7); MCHC 32.8 g/dl (32.0-36.0); MEAN PLT VOLUME 10.9 fl (7.5-11.1); MONO % 9.4 % (3.8-10.2); NEUT % 73.8 % (42.8-82.8); PLATELET COUNT 248 10^3/uL (134-434); RBC 4.06 M/mm3 (3.60-5.2); RDW 14.2 % (11.6-15.6); WHITE BLOOD COUNT 8.2 K/mm3 (4.0-10.0)
[2021-10-04 08:19] LABS: CALCIUM 8.9 mg/dL (8.5-10.1); MAGNESIUM 2.4 mg/dL (1.8-2.4)
[2021-10-04 08:20] LABS: ALBUMIN 2.9 g/dl (3.4-5.0)
[2021-10-04 08:23] LABS: CREATININE 0.6 mg/dL (0.55-1.3); PHOSPHOROUS 3.6 mg/dL (2.5-4.9)
[2021-10-04 08:24] LABS: BILIRUBIN,TOTAL 0.3 mg/dL (0.2-1); TOT PROT 7.1 g/dl (6.4-8.2)
[2021-10-04] MEDS: TIGECYCLINE 50 MG in DEXTROSE 5%-WATER - 100 ML IVPB SCH ×2 (09:46→22:35)
[2021-10-04] MEDS: PRENATAL VITAMINS W/ FOLIC ACID TABLET (FP) PO SCH (09:47)
[2021-10-04] MEDS: AMINO ACIDS/PROTEIN HYDROLYS 30 ML LIQUID.PKT PO SCH ×2 (09:47→18:06)
[2021-10-04] MEDS: OXcarbazepine 300 MG TABLET (UD) PO SCH ×2 (09:48→22:36)
[2021-10-04] MEDS: ENOXAPARIN NA (PORCINE) 80 MG/0.8 ML DISP.SYRIN SQ SCH (09:48)
[2021-10-04] MEDS: BACITRACIN 15 GM TUBE TOPICAL OINTMENT TP SCH (09:48)
[2021-10-04] MEDS: POLYETHYLENE GLYCOL (HEALTHYLAX) 3350 17 GM PACKET PO SCH ×2 (09:49→22:46)
[2021-10-04] MEDS: NYSTATIN POWDER 100,000 UNITS/GM - 15 GM TOPICAL POWDER TP SCH (09:49)
[2021-10-04] MEDS: amLODIPine BESYLATE 10 MG TABLET (FP) PO SCH (09:49)
[2021-10-04] MEDS: ATORVASTATIN CA 10 MG TABLET (FP) PO SCH (22:35)
[2021-10-05] MEDS: LEVOTHYROXINE NA 50 MCG TABLET (FP) PO SCH (06:33)
[2021-10-05] MEDS: ARTIFICIAL TEARS (POLYVINYL ALCOHOL) OPTH DROPS OU SCH ×3 (06:33→21:33)
[2021-10-05] MEDS: AMINO ACIDS/PROTEIN HYDROLYS 30 ML LIQUID.PKT PO SCH ×2 (08:59→18:07)
[2021-10-05] MEDS: ENOXAPARIN NA (PORCINE) 80 MG/0.8 ML DISP.SYRIN SQ SCH (10:21)
[2021-10-05] MEDS: amLODIPine BESYLATE 10 MG TABLET (FP) PO SCH (10:21)
[2021-10-05] MEDS: POLYETHYLENE GLYCOL (HEALTHYLAX) 3350 17 GM PACKET PO SCH ×2 (10:21→21:33)
[2021-10-05] MEDS: PRENATAL VITAMINS W/ FOLIC ACID TABLET (FP) PO SCH (10:22)
[2021-10-05] MEDS: BACITRACIN 15 GM TUBE TOPICAL OINTMENT TP SCH (10:22)
[2021-10-05] MEDS: NYSTATIN POWDER 100,000 UNITS/GM - 15 GM TOPICAL POWDER TP SCH (10:22)
[2021-10-05] MEDS: OXcarbazepine 300 MG TABLET (UD) PO SCH ×2 (10:23→21:32)
[2021-10-05] MEDS: TIGECYCLINE 50 MG in DEXTROSE 5%-WATER - 100 ML IVPB SCH ×2 (10:23→21:33)
[2021-10-05] MEDS: ACETAMINOPHEN 650 MG/20.3 ML ORAL SOLUTION (CUPS) PEG PRN (19:45)
[2021-10-05] MEDS: ATORVASTATIN CA 10 MG TABLET (FP) PO SCH (21:32)
[2021-10-06] MEDS: ARTIFICIAL TEARS (POLYVINYL ALCOHOL) OPTH DROPS OU SCH ×3 (06:24→22:26)
[2021-10-06] MEDS: LEVOTHYROXINE NA 50 MCG TABLET (FP) PO SCH (06:25)
[2021-10-06] MEDS ORDERED: hydrALAZINE HCL 20 MG/ML VIAL IVPUSH ONE (07:42)
[2021-10-06] MEDS: PRENATAL VITAMINS W/ FOLIC ACID TABLET (FP) PO SCH (09:55)
[2021-10-06] MEDS: POLYETHYLENE GLYCOL (HEALTHYLAX) 3350 17 GM PACKET PO SCH ×2 (09:55→22:26)
[2021-10-06] MEDS: ENOXAPARIN NA (PORCINE) 80 MG/0.8 ML DISP.SYRIN SQ SCH (09:55)
[2021-10-06] MEDS: amLODIPine BESYLATE 10 MG TABLET (FP) PO SCH (09:55)
[2021-10-06] MEDS: AMINO ACIDS/PROTEIN HYDROLYS 30 ML LIQUID.PKT PO SCH ×2 (09:55→17:12)
[2021-10-06] MEDS: OXcarbazepine 300 MG TABLET (UD) PO SCH ×2 (09:56→22:25)
[2021-10-06] MEDS: BACITRACIN 15 GM TUBE TOPICAL OINTMENT TP SCH (09:56)
[2021-10-06] MEDS: NYSTATIN POWDER 100,000 UNITS/GM - 15 GM TOPICAL POWDER TP SCH (09:57)
[2021-10-06] MEDS: TIGECYCLINE 50 MG in DEXTROSE 5%-WATER - 100 ML IVPB SCH ×2 (11:20→22:24)
[2021-10-06 11:42] LABS: BASO % 0.7 % (0-2.0); EOS % 2.6 % (0-4.5); HEMATOCRIT 39.6 % (32.4-45.2); HEMOGLOBIN 12.8 GM/dL (10.7-15.3); LYMPH % 32.9 % (8-40); MCH 30.2 pg (25.7-33.7); MCHC 32.3 g/dl (32.0-36.0); MEAN CELL VOLUME 93.6 fl (80-96); MEAN PLT VOLUME 11.2 fl (7.5-11.1); MONO % 11.3 % (3.8-10.2); NEUT % 52.5 % (42.8-82.8); PLATELET COUNT 224 10^3/uL (134-434); RBC 4.23 M/mm3 (3.60-5.2); RDW 14.6 % (11.6-15.6); WHITE BLOOD COUNT 3.8 K/mm3 (4.0-10.0)
[2021-10-06 12:27] LABS: ALBUMIN 2.9 g/dl (3.4-5.0); CALCIUM 9.1 mg/dL (8.5-10.1)
[2021-10-06 12:28] LABS: BLOOD UREA NITROGEN 28.6 mg/dL (7-18); MAGNESIUM 2.5 mg/dL (1.8-2.4)
[2021-10-06 12:30] LABS: PHOSPHOROUS 3.9 mg/dL (2.5-4.9)
[2021-10-06 12:31] LABS: CREATININE 0.6 mg/dL (0.55-1.3)
[2021-10-06 12:32] LABS: BILIRUBIN,TOTAL 0.4 mg/dL (0.2-1); TOT PROT 7.2 g/dl (6.4-8.2)
[2021-10-06] MEDS: ATORVASTATIN CA 10 MG TABLET (FP) PO SCH (22:25)
[2021-10-07] MEDS: LEVOTHYROXINE NA 50 MCG TABLET (FP) PO SCH (06:50)
[2021-10-07] MEDS: ARTIFICIAL TEARS (POLYVINYL ALCOHOL) OPTH DROPS OU SCH ×3 (06:50→22:09)
[2021-10-07 08:40] LABS: BASO % 0.8 % (0-2.0); EOS % 5.3 % (0-4.5); HEMATOCRIT 37.4 % (32.4-45.2); HEMOGLOBIN 12.1 GM/dL (10.7-15.3); LYMPH % 29.6 % (8-40); MCH 30.1 pg (25.7-33.7); MCHC 32.3 g/dl (32.0-36.0); MEAN CELL VOLUME 93.2 fl (80-96); MEAN PLT VOLUME 10.3 fl (7.5-11.1); MONO % 11.3 % (3.8-10.2); PLATELET COUNT 216 10^3/uL (134-434); RBC 4.01 M/mm3 (3.60-5.2); RDW 14.4 % (11.6-15.6); WHITE BLOOD COUNT 4.4 K/mm3 (4.0-10.0)
[2021-10-07 09:06] LABS: ALBUMIN 2.6 g/dl (3.4-5.0); BLOOD UREA NITROGEN 33.1 mg/dL (7-18); CALCIUM 8.5 mg/dL (8.5-10.1)
[2021-10-07 09:09] LABS: CREATININE 0.6 mg/dL (0.55-1.3)
[2021-10-07 09:11] LABS: BILIRUBIN,TOTAL 0.4 mg/dL (0.2-1); TOT PROT 6.6 g/dl (6.4-8.2)
[2021-10-07 09:26] LABS: MAGNESIUM 2.3 mg/dL (1.8-2.4)
[2021-10-07] MEDS: OXcarbazepine 300 MG TABLET (UD) PO SCH ×2 (10:32→22:10)
[2021-10-07] MEDS: ENOXAPARIN NA (PORCINE) 80 MG/0.8 ML DISP.SYRIN SQ SCH (10:32)
[2021-10-07] MEDS: amLODIPine BESYLATE 10 MG TABLET (FP) PO SCH (10:32)
[2021-10-07] MEDS: PRENATAL VITAMINS W/ FOLIC ACID TABLET (FP) PO SCH (10:33)
[2021-10-07] MEDS: TIGECYCLINE 50 MG in DEXTROSE 5%-WATER - 100 ML IVPB SCH ×2 (10:33→22:10)
[2021-10-07] MEDS: AMINO ACIDS/PROTEIN HYDROLYS 30 ML LIQUID.PKT PO SCH ×2 (10:33→17:47)
[2021-10-07] MEDS: POLYETHYLENE GLYCOL (HEALTHYLAX) 3350 17 GM PACKET PO SCH ×2 (10:34→22:09)
[2021-10-07] MEDS: NYSTATIN POWDER 100,000 UNITS/GM - 15 GM TOPICAL POWDER TP SCH (10:54)
[2021-10-07] MEDS: BACITRACIN 15 GM TUBE TOPICAL OINTMENT TP SCH (10:54)
[2021-10-07] MEDS: ACETAMINOPHEN 650 MG/20.3 ML ORAL SOLUTION (CUPS) PEG PRN (14:20)
[2021-10-07] MEDS ORDERED: INSULIN (NOVOLOG) ASPART 100 UNITS/ML 10ML VIAL ONE (17:44)
[2021-10-07] MEDS: ATORVASTATIN CA 10 MG TABLET (FP) PO SCH (22:11)
[2021-10-08] MEDS: ARTIFICIAL TEARS (POLYVINYL ALCOHOL) OPTH DROPS OU SCH ×3 (06:49→22:18)
[2021-10-08] MEDS: LEVOTHYROXINE NA 50 MCG TABLET (FP) PO SCH (06:50)
[2021-10-08 08:31] LABS: BASO % 0.5 % (0-2.0); EOS % 0.2 % (0-4.5); HEMATOCRIT 34.4 % (32.4-45.2); HEMOGLOBIN 11.5 GM/dL (10.7-15.3); LYMPH % 9.3 % (8-40); MCH 31.1 pg (25.7-33.7); MCHC 33.4 g/dl (32.0-36.0); MONO % 7.7 % (3.8-10.2); NEUT % 82.3 % (42.8-82.8); PLATELET COUNT 196 10^3/uL (134-434); RDW 14.7 % (11.6-15.6); WHITE BLOOD COUNT 6.9 K/mm3 (4.0-10.0)
[2021-10-08 08:58] LABS: CALCIUM 8.5 mg/dL (8.5-10.1)
[2021-10-08 09:00] LABS: ALBUMIN 2.5 g/dl (3.4-5.0); BLOOD UREA NITROGEN 32.4 mg/dL (7-18); MAGNESIUM 2.2 mg/dL (1.8-2.4)
[2021-10-08 09:02] LABS: BILIRUBIN,TOTAL 0.3 mg/dL (0.2-1); CREATININE 0.6 mg/dL (0.55-1.3); PHOSPHOROUS 3.3 mg/dL (2.5-4.9); TOT PROT 6.2 g/dl (6.4-8.2)
[2021-10-08] MEDS: AMINO ACIDS/PROTEIN HYDROLYS 30 ML LIQUID.PKT PO SCH ×2 (10:08→18:39)
[2021-10-08] MEDS: TIGECYCLINE 50 MG in DEXTROSE 5%-WATER - 100 ML IVPB SCH ×2 (10:08→22:17)
[2021-10-08] MEDS: BACITRACIN 15 GM TUBE TOPICAL OINTMENT TP SCH (10:08)
[2021-10-08] MEDS: POLYETHYLENE GLYCOL (HEALTHYLAX) 3350 17 GM PACKET PO SCH ×2 (10:09→22:19)
[2021-10-08] MEDS: ENOXAPARIN NA (PORCINE) 80 MG/0.8 ML DISP.SYRIN SQ SCH (10:09)
[2021-10-08] MEDS: OXcarbazepine 300 MG TABLET (UD) PO SCH ×2 (10:09→22:18)
[2021-10-08] MEDS: PRENATAL VITAMINS W/ FOLIC ACID TABLET (FP) PO SCH (10:10)
[2021-10-08] MEDS: amLODIPine BESYLATE 10 MG TABLET (FP) PO SCH (10:10)
[2021-10-08] MEDS: NYSTATIN POWDER 100,000 UNITS/GM - 15 GM TOPICAL POWDER TP SCH (10:10)
[2021-10-08] MEDS: ACETAMINOPHEN 650 MG/20.3 ML ORAL SOLUTION (CUPS) PEG PRN (19:58)
[2021-10-08] MEDS: ATORVASTATIN CA 10 MG TABLET (FP) PO SCH (22:18)
[2021-10-09] MEDS: ARTIFICIAL TEARS (POLYVINYL ALCOHOL) OPTH DROPS OU SCH ×3 (06:45→22:17)
[2021-10-09] MEDS: LEVOTHYROXINE NA 50 MCG TABLET (FP) PO SCH (06:45)
[2021-10-09] MEDS: POLYETHYLENE GLYCOL (HEALTHYLAX) 3350 17 GM PACKET PO SCH ×2 (10:05→22:17)
[2021-10-09] MEDS: BACITRACIN 15 GM TUBE TOPICAL OINTMENT TP SCH (10:05)
[2021-10-09] MEDS: AMINO ACIDS/PROTEIN HYDROLYS 30 ML LIQUID.PKT PO SCH ×2 (10:05→16:56)
[2021-10-09] MEDS: amLODIPine BESYLATE 10 MG TABLET (FP) PO SCH (10:05)
[2021-10-09] MEDS: NYSTATIN POWDER 100,000 UNITS/GM - 15 GM TOPICAL POWDER TP SCH (10:06)
[2021-10-09] MEDS: OXcarbazepine 300 MG TABLET (UD) PO SCH ×2 (10:47→22:17)
[2021-10-09] MEDS: PRENATAL VITAMINS W/ FOLIC ACID TABLET (FP) PO SCH (10:47)
[2021-10-09] MEDS: TIGECYCLINE 50 MG in DEXTROSE 5%-WATER - 100 ML IVPB SCH ×2 (10:47→22:18)
[2021-10-09] MEDS: ATORVASTATIN CA 10 MG TABLET (FP) PO SCH (22:17)
[2021-10-10] MEDS: LEVOTHYROXINE NA 50 MCG TABLET (FP) PO SCH (05:59)
[2021-10-10] MEDS: ARTIFICIAL TEARS (POLYVINYL ALCOHOL) OPTH DROPS OU SCH ×3 (05:59→22:29)
[2021-10-10] MEDS: BACITRACIN 15 GM TUBE TOPICAL OINTMENT TP SCH (09:35)
[2021-10-10] MEDS: AMINO ACIDS/PROTEIN HYDROLYS 30 ML LIQUID.PKT PO SCH ×2 (09:35→16:45)
[2021-10-10] MEDS: POLYETHYLENE GLYCOL (HEALTHYLAX) 3350 17 GM PACKET PO SCH ×2 (09:35→22:29)
[2021-10-10] MEDS: amLODIPine BESYLATE 10 MG TABLET (FP) PO SCH (09:36)
[2021-10-10] MEDS: NYSTATIN POWDER 100,000 UNITS/GM - 15 GM TOPICAL POWDER TP SCH (09:36)
[2021-10-10] MEDS: PRENATAL VITAMINS W/ FOLIC ACID TABLET (FP) PO SCH (09:38)
[2021-10-10] MEDS: TIGECYCLINE 50 MG in DEXTROSE 5%-WATER - 100 ML IVPB SCH ×2 (09:38→22:35)
[2021-10-10] MEDS: OXcarbazepine 300 MG TABLET (UD) PO SCH ×2 (09:38→22:35)
[2021-10-10] MEDS: ATORVASTATIN CA 10 MG TABLET (FP) PO SCH (22:29)
[2021-10-11] MEDS: LEVOTHYROXINE NA 50 MCG TABLET (FP) PO SCH (06:49)
[2021-10-11] MEDS: ARTIFICIAL TEARS (POLYVINYL ALCOHOL) OPTH DROPS OU SCH ×2 (06:49→13:07)
[2021-10-11] MEDS: AMINO ACIDS/PROTEIN HYDROLYS 30 ML LIQUID.PKT PO SCH ×2 (10:17→16:41)
[2021-10-11] MEDS: BACITRACIN 15 GM TUBE TOPICAL OINTMENT TP SCH (10:17)
[2021-10-11] MEDS: POLYETHYLENE GLYCOL (HEALTHYLAX) 3350 17 GM PACKET PO SCH (10:17)
[2021-10-11] MEDS: amLODIPine BESYLATE 10 MG TABLET (FP) PO SCH (10:18)
[2021-10-11] MEDS: NYSTATIN POWDER 100,000 UNITS/GM - 15 GM TOPICAL POWDER TP SCH (10:18)
[2021-10-11] MEDS: PRENATAL VITAMINS W/ FOLIC ACID TABLET (FP) PO SCH (10:18)
[2021-10-11] MEDS: OXcarbazepine 300 MG TABLET (UD) PO SCH (10:18)
[2021-10-11] MEDS: TIGECYCLINE 50 MG in DEXTROSE 5%-WATER - 100 ML IVPB SCH (10:19)
[2021-10-11 15:31] VITALS: BP 138/71; PULSE 73; TEMP 98.3
== END 2021-10-11 20:00 | disposition home health service (06) | DRG 689 ==
LOC: JER 12:02 → JERBED 16:31 → INTOOBSV 16:31 → J6S 09-19 00:14 → OBSVTOIN 09-22 13:27 → J8W 09-26 14:22
PROVIDERS: ADMIT Internal Medicine; ATTEND Internal Medicine
PROC: 0DH63UZ Insertion of Feeding Device into Stomach, Percutaneous Approach (ICD-10-PCS; principal; 2021-09-18)
PROC: 3E0G76Z Introduction of Nutritional Substance into Upper GI, Via Natural or Artificial Opening (ICD-10-PCS; 2021-09-18)
DX: N39.0 Urinary tract infection, site not specified (principal); R53.2 Functional quadriplegia; A41.89 Other specified sepsis; T85.528A Displacement of other gastrointestinal prosthetic devices, implants and grafts, initial encounter; K94.23 Gastrostomy malfunction; Y83.8 Other surgical procedures as the cause of abnormal reaction of the patient, or of later complication, without mention of misadventure at the time of the procedure; B96.29 Other Escherichia coli [E. coli] as the cause of diseases classified elsewhere; Z74.01 Bed confinement status; G20 Parkinson's disease; G30.9 Alzheimer's disease, unspecified; F02.80 Dementia in other diseases classified elsewhere, unspecified severity, without behavioral disturbance, psychotic disturbance, mood disturbance, and anxiety; K59.00 Constipation, unspecified; E03.9 Hypothyroidism, unspecified; E78.5 Hyperlipidemia, unspecified; Z86.718 Personal history of other venous thrombosis and embolism; I10 Essential (primary) hypertension; R56.9 Unspecified convulsions; I69.320 Aphasia following cerebral infarction; R41.82 Altered mental status, unspecified
CPT/HCPCS: 36415; 49440; 70450-TC; 73130-TC-RT-FY; 80048; 80053; 81003; 83735; 84100; 85025; 85610; 85730; 87040; 87086; 87186; 93005; 93010; 99285-25; C1769; C1887; C9803-CS; G0378; J3243; U0003; U0005

== ENCOUNTER 2021-11-14 14:35 | Inpatient (IN) | payer OTHER ==
[2021-11-14 16:10] VITALS: BMI 29.2
[2021-11-14] MEDS ORDERED: SODIUM CHLORIDE 0.9% 500 ML INFUS.BAG IV ONE ×2 (16:37→16:42)
[2021-11-14 17:00] LABS: BASO % 0.8 % (0-2.0); HEMATOCRIT 40.8 % (32.4-45.2); HEMOGLOBIN 13.6 GM/dL (10.7-15.3); LYMPH % 25.3 % (8-40); MCH 30.4 pg (25.7-33.7); MCHC 33.2 g/dl (32.0-36.0); MEAN CELL VOLUME 91.4 fl (80-96); MEAN PLT VOLUME 10.7 fl (7.5-11.1); MONO % 7.1 % (3.8-10.2); NEUT % 64.8 % (42.8-82.8); PLATELET COUNT 195 10^3/uL (134-434); RBC 4.46 M/mm3 (3.60-5.2); RDW 14.8 % (11.6-15.6)
[2021-11-14 17:23] LABS: ALBUMIN 3.3 g/dl (3.4-5.0); BLOOD UREA NITROGEN 23.8 mg/dL (7-18); CALCIUM 9.3 mg/dL (8.5-10.1)
[2021-11-14 17:26] LABS: CREATININE 0.7 mg/dL (0.55-1.3)
[2021-11-14 17:28] LABS: BILIRUBIN,TOTAL 0.5 mg/dL (0.2-1); TOT PROT 7.9 g/dl (6.4-8.2)
[2021-11-14] MEDS ORDERED: SODIUM PHOSPHATE/NA BIPHOS 133 ML ENEMA PR ONE (18:42)
[2021-11-14 19:48] LABS: EPI CELLS >36 /uL (0-25.1); HYALINE CASTS 8 /uL (0-3.1); URINE APPEARANCE CLOUDY; URINE BACTERIA 336 /uL (0-1359); URINE BILIRUBIN NEGATIVE (NEGATIVE); URINE COLOR YELLOW; URINE GLUCOSE (UA) NEGATIVE (NEGATIVE); URINE KETONE NEGATIVE (NEGATIVE); URINE LEUK ESTERASE 3+ (NEGATIVE); URINE NITRITE NEGATIVE (NEGATIVE); URINE PROTEIN NEGATIVE (NEGATIVE); URINE RBC 18 /uL (0-23.9); URINE UROBILINOGEN 0.2 mg/dL (0.2-1.0); URINE WBC 1163 /uL (0-25.8)
[2021-11-14 22:07] LABS: URINE CRYSTALS MODERATE /hpf
[2021-11-14 22:09] LABS: YEAST MODERATE (NEGATIVE)
[2021-11-14] MEDS ORDERED: MEROPENEM 1 GM VIAL (RESTRICTED TO ID) IVPB ONE (22:31)
[2021-11-14] MEDS ORDERED: ACETAMINOPHEN 325 MG TABLET (FP) PO PRN (22:43)
[2021-11-14] MEDS ORDERED: ARTIFICIAL TEARS (POLYVINYL ALCOHOL) OPTH DROPS OU SCH (22:45)
[2021-11-14] MEDS: MEROPENEM 1 GM in DEXTROSE 5%-WATER 100 ML IVPB SCH (23:04)
[2021-11-15] MEDS: OXcarbazepine 150 MG TABLET (UD) PO SCH ×2 (01:12→09:14)
[2021-11-15] MEDS ORDERED: methylPREDNISolone NA SUCC 125 MG/2 ML VIAL ONE (02:30)
[2021-11-15] MEDS ORDERED: EPINEPHrine/PF 1 MG/1 ML (1:1,000) AMPULE ONE (02:30)
[2021-11-15] MEDS ORDERED: MEROPENEM 1 GM VIAL (RESTRICTED TO ID) IVPB ONE ×2 (06:02→15:31)
[2021-11-15] MEDS ORDERED: POLYETHYLENE GLYCOL (HEALTHYLAX) 3350 17 GM PACKET ONE ×2 (06:02→22:36)
[2021-11-15] MEDS ORDERED: LEVOTHYROXINE NA 50 MCG TABLET (FP) ONE (06:03)
[2021-11-15] MEDS: MEROPENEM 1 GM in DEXTROSE 5%-WATER 100 ML IVPB SCH ×2 (06:16→15:45)
[2021-11-15] MEDS: POLYETHYLENE GLYCOL (HEALTHYLAX) 3350 17 GM PACKET PO SCH ×2 (06:16→15:04)
[2021-11-15] MEDS ORDERED: LEVOTHYROXINE NA 50 MCG TABLET (FP) PO SCH (07:00)
[2021-11-15 07:52] LABS: BASO % 0.5 % (0-2.0); EOS % 1.3 % (0-4.5); HEMATOCRIT 41.5 % (32.4-45.2); HEMOGLOBIN 13.7 GM/dL (10.7-15.3); LYMPH % 20.8 % (8-40); MCH 30.4 pg (25.7-33.7); MCHC 33.1 g/dl (32.0-36.0); MEAN CELL VOLUME 91.8 fl (80-96); MEAN PLT VOLUME 10.8 fl (7.5-11.1); MONO % 4.4 % (3.8-10.2); PLATELET COUNT 191 10^3/uL (134-434); RBC 4.52 M/mm3 (3.60-5.2); RDW 14.6 % (11.6-15.6); WHITE BLOOD COUNT 6.5 K/mm3 (4.0-10.0)
[2021-11-15] MEDS ORDERED: amLODIPine BESYLATE 10 MG TABLET (FP) ONE (08:08)
[2021-11-15] MEDS ORDERED: ENOXAPARIN NA (PORCINE) 40 MG/0.4 ML DISP.SYRIN SQ ONE (08:09)
[2021-11-15 08:16] LABS: ALBUMIN 3.4 g/dl (3.4-5.0); BLOOD UREA NITROGEN 17.7 mg/dL (7-18); CALCIUM 9.2 mg/dL (8.5-10.1); MAGNESIUM 2.2 mg/dL (1.8-2.4); PHOSPHOROUS 3.2 mg/dL (2.5-4.9)
[2021-11-15 08:17] LABS: BILIRUBIN,TOTAL 0.5 mg/dL (0.2-1); TOT PROT 8.1 g/dl (6.4-8.2)
[2021-11-15 08:19] LABS: CREATININE 0.6 mg/dL (0.55-1.3)
[2021-11-15] MEDS ORDERED: ENOXAPARIN NA (PORCINE) 40 MG/0.4 ML DISP.SYRIN SQ SCH (10:00)
[2021-11-15] MEDS ORDERED: amLODIPine BESYLATE 10 MG TABLET (FP) PO SCH (10:00)
[2021-11-15] MEDS ORDERED: DOCUSATE NA 100 MG/10 ML UNIT-DOSE CUPS PEG PRN (14:11)
[2021-11-15] MEDS ORDERED: ACETAMINOPHEN 650 MG/20.3 ML ORAL SOLUTION (CUPS) PEG PRN (15:04)
[2021-11-15] MEDS: ARTIFICIAL TEARS (POLYVINYL ALCOHOL) OPTH DROPS OU PRN (15:45)
[2021-11-15] MEDS ORDERED: ATORVASTATIN CA 10 MG TABLET (FP) PO SCH (22:00)
[2021-11-15] MEDS ORDERED: APIXABAN 5 MG TABLET ONE (22:36)
[2021-11-15] MEDS ORDERED: ATORVASTATIN CA 10 MG TABLET (FP) ONE (22:36)
[2021-11-15] MEDS: SENNOSIDES 8.8 MG/5 ML BULK BOTTLE PEG SCH (23:05)
[2021-11-15] MEDS: OXcarbazepine 300 MG/5 ML 250 ML BULK BOTTLE PEG SCH (23:05)
[2021-11-15] MEDS: POLYETHYLENE GLYCOL (HEALTHYLAX) 3350 17 GM PACKET PEG SCH (23:05)
[2021-11-15] MEDS: ATORVASTATIN CA 10 MG TABLET (FP) PEG SCH (23:05)
[2021-11-15] MEDS: APIXABAN 5 MG TABLET GT SCH (23:05)
[2021-11-16] MEDS ORDERED: MEROPENEM 1 GM VIAL (RESTRICTED TO ID) IVPB ONE ×2 (00:50→15:40)
[2021-11-16] MEDS: MEROPENEM 1 GM in DEXTROSE 5%-WATER 100 ML IVPB SCH ×3 (01:11→15:53)
[2021-11-16] MEDS ORDERED: POLYETHYLENE GLYCOL (HEALTHYLAX) 3350 17 GM PACKET ONE ×2 (05:23→15:40)
[2021-11-16] MEDS: POLYETHYLENE GLYCOL (HEALTHYLAX) 3350 17 GM PACKET PEG SCH ×3 (06:20→22:46)
[2021-11-16] MEDS: LEVOTHYROXINE NA 50 MCG TABLET (FP) PEG SCH (07:30)
[2021-11-16] MEDS ORDERED: APIXABAN 5 MG TABLET ONE (10:08)
[2021-11-16] MEDS ORDERED: amLODIPine BESYLATE 10 MG TABLET (FP) ONE (10:08)
[2021-11-16] MEDS ORDERED: LEVOTHYROXINE NA 50 MCG TABLET (FP) ONE (10:13)
[2021-11-16] MEDS: amLODIPine BESYLATE 10 MG TABLET (FP) PEG SCH (10:29)
[2021-11-16] MEDS: APIXABAN 5 MG TABLET GT SCH (10:30)
[2021-11-16] MEDS: OXcarbazepine 300 MG/5 ML 250 ML BULK BOTTLE PEG SCH ×2 (11:45→22:47)
[2021-11-16 13:26] LABS: CALCIUM 9.1 mg/dL (8.5-10.1)
[2021-11-16 13:27] LABS: BLOOD UREA NITROGEN 14.9 mg/dL (7-18)
[2021-11-16 13:30] LABS: CREATININE 0.6 mg/dL (0.55-1.3)
[2021-11-16 13:33] LABS: BASO % 0.6 % (0-2.0); EOS % 2.1 % (0-4.5); HEMATOCRIT 37.5 % (32.4-45.2); HEMOGLOBIN 12.5 GM/dL (10.7-15.3); LYMPH % 20.4 % (8-40); MCH 30.5 pg (25.7-33.7); MCHC 33.3 g/dl (32.0-36.0); MEAN CELL VOLUME 91.5 fl (80-96); MONO % 8.2 % (3.8-10.2); NEUT % 68.7 % (42.8-82.8); PLATELET COUNT 190 10^3/uL (134-434); RBC 4.09 M/mm3 (3.60-5.2); RDW 14.4 % (11.6-15.6); WHITE BLOOD COUNT 6.3 K/mm3 (4.0-10.0)
[2021-11-16] MEDS ORDERED: APIXABAN 5 MG TABLET GT SCH (18:48)
[2021-11-16] MEDS: ATORVASTATIN CA 10 MG TABLET (FP) PEG SCH (22:45)
[2021-11-16] MEDS: APIXABAN 2.5 MG TABLET GT SCH (22:46)
[2021-11-16] MEDS: SENNOSIDES 8.8 MG/5 ML BULK BOTTLE PEG SCH (22:46)
[2021-11-16] MEDS: ARTIFICIAL TEARS (POLYVINYL ALCOHOL) OPTH DROPS OU PRN (22:48)
[2021-11-17] MEDS: POLYETHYLENE GLYCOL (HEALTHYLAX) 3350 17 GM PACKET PEG SCH ×3 (06:07→22:24)
[2021-11-17] MEDS: LEVOTHYROXINE NA 50 MCG TABLET (FP) PEG SCH (06:07)
[2021-11-17] MEDS: APIXABAN 2.5 MG TABLET GT SCH ×2 (09:14→22:23)
[2021-11-17] MEDS: amLODIPine BESYLATE 10 MG TABLET (FP) PEG SCH (09:15)
[2021-11-17] MEDS: OXcarbazepine 300 MG/5 ML 250 ML BULK BOTTLE PEG SCH ×2 (09:36→22:23)
[2021-11-17] MEDS: ATORVASTATIN CA 10 MG TABLET (FP) PEG SCH (22:23)
[2021-11-17] MEDS: SENNOSIDES 8.8 MG/5 ML BULK BOTTLE PEG SCH (22:24)
[2021-11-18] MEDS: POLYETHYLENE GLYCOL (HEALTHYLAX) 3350 17 GM PACKET PEG SCH ×2 (05:41→15:09)
[2021-11-18] MEDS: LEVOTHYROXINE NA 50 MCG TABLET (FP) PEG SCH (06:32)
[2021-11-18 08:55] LABS: BASO % 0.8 % (0-2.0); EOS % 1.9 % (0-4.5); HEMATOCRIT 36.1 % (32.4-45.2); HEMOGLOBIN 11.9 GM/dL (10.7-15.3); LYMPH % 22.8 % (8-40); MCH 30.1 pg (25.7-33.7); MCHC 32.9 g/dl (32.0-36.0); MEAN CELL VOLUME 91.7 fl (80-96); MEAN PLT VOLUME 10.5 fl (7.5-11.1); MONO % 8.6 % (3.8-10.2); NEUT % 65.9 % (42.8-82.8); PLATELET COUNT 166 10^3/uL (134-434); RBC 3.94 M/mm3 (3.60-5.2); RDW 14.4 % (11.6-15.6); WHITE BLOOD COUNT 4.7 K/mm3 (4.0-10.0)
[2021-11-18 09:40] LABS: BLOOD UREA NITROGEN 17.5 mg/dL (7-18); CALCIUM 9.4 mg/dL (8.5-10.1)
[2021-11-18 09:43] LABS: CREATININE 0.6 mg/dL (0.55-1.3)
[2021-11-18] MEDS: OXcarbazepine 300 MG/5 ML 250 ML BULK BOTTLE PEG SCH (10:00)
[2021-11-18] MEDS: amLODIPine BESYLATE 10 MG TABLET (FP) PEG SCH (10:00)
[2021-11-18] MEDS: APIXABAN 2.5 MG TABLET GT SCH (10:00)
[2021-11-18 14:45] VITALS: BP 116/60; PULSE 79; TEMP 98.3
== END 2021-11-18 20:39 | DRG 689 ==
LOC: JER 14:35 → JERBED 16:46 → OBSVTOIN 22:40 → J8W 11-16 19:04
PROVIDERS: ADMIT Internal Medicine; ATTEND Internal Medicine
DX: N39.0 Urinary tract infection, site not specified (principal); R53.2 Functional quadriplegia; G30.9 Alzheimer's disease, unspecified; F02.80 Dementia in other diseases classified elsewhere, unspecified severity, without behavioral disturbance, psychotic disturbance, mood disturbance, and anxiety; G20 Parkinson's disease; G40.909 Epilepsy, unspecified, not intractable, without status epilepticus; E03.9 Hypothyroidism, unspecified; I10 Essential (primary) hypertension; K59.00 Constipation, unspecified; B96.4 Proteus (mirabilis) (morganii) as the cause of diseases classified elsewhere; B96.1 Klebsiella pneumoniae [K. pneumoniae] as the cause of diseases classified elsewhere; B95.2 Enterococcus as the cause of diseases classified elsewhere; Z86.718 Personal history of other venous thrombosis and embolism; Z93.1 Gastrostomy status; Z86.73 Personal history of transient ischemic attack (TIA), and cerebral infarction without residual deficits
CPT/HCPCS: 36415; 80048; 80053; 81003; 83735; 84100; 84132; 85025; 87086; 87186; 93005; 93010; 97161-GP; 99285-25; C9803-CS; G0378; U0003; U0005

== ENCOUNTER 2022-07-31 14:03 | Emergency (ER) | payer OTHER ==
[2022-07-31 14:15] VITALS: BP 144/78; PULSE 97; RESP 16; TEMP 98.6; BMI 20.9
[2022-07-31 17:51] LABS: EPI CELLS 13 /uL (0-25.1); HYALINE CASTS 27 /uL (0-3.1); PH,URINE 5.5 (5.0-8.0); URINE APPEARANCE TURBID; URINE BACTERIA 5 /uL (0-1359); URINE BILIRUBIN NEGATIVE (NEGATIVE); URINE COLOR YELLOW; URINE GLUCOSE (UA) NEGATIVE (NEGATIVE); URINE KETONE TRACE (NEGATIVE); URINE LEUK ESTERASE 3+ (NEGATIVE); URINE NITRITE NEGATIVE (NEGATIVE); URINE PROTEIN TRACE (NEGATIVE); URINE WBC 2350 /uL (0-25.8)
[2022-08-01] MEDS ORDERED: levoFLOXacin 750 MG TABLET PO SCH (10:00)
== END 2022-07-31 22:15 | disposition home or self-care (01) ==
LOC: JER 14:03
DX: T85.528A Displacement of other gastrointestinal prosthetic devices, implants and grafts, initial encounter (principal)
CPT/HCPCS: 49450; 81003; 87077; 87086; 99284-25; C1769; C1887

== ENCOUNTER 2022-12-07 14:02 | Emergency (ER) | payer OTHER ==
[2022-12-07 15:15] VITALS: RESP 18; TEMP 98.4; BMI 21.7
[2022-12-07 16:28] LABS: BASO % 0.8 % (0-2.0); EOS % 2.1 % (0-4.5); HEMATOCRIT 37.1 % (32.4-45.2); HEMOGLOBIN 12.1 GM/dL (10.7-15.3); LYMPH % 28.9 % (8-40); MCH 30.4 pg (25.7-33.7); MCHC 32.7 g/dl (32.0-36.0); MEAN PLT VOLUME 10.7 fl (7.5-11.1); MONO % 9.7 % (3.8-10.2); NEUT % 58.5 % (42.8-82.8); PLATELET COUNT 183 10^3/uL (134-434); RBC 3.99 M/mm3 (3.60-5.2); RDW 14.7 % (11.6-15.6); WHITE BLOOD COUNT 4.6 K/mm3 (4.0-10.0)
[2022-12-07 16:59] LABS: BILIRUBIN,TOTAL 0.2 mg/dL (0.2-1); BLOOD UREA NITROGEN 8.8 mg/dL (7-18); CALCIUM 9.1 mg/dL (8.5-10.1); CREATININE 0.7 mg/dL (0.55-1.3); POTASSIUM 4.6 mmol/L (3.5-5.1); TOT PROT 7.3 g/dl (6.4-8.2)
[2022-12-07 17:14] LABS: EPI CELLS 8 /uL (0-25.1); HYALINE CASTS 1 /uL (0-3.1); URINE APPEARANCE CLEAR; URINE BACTERIA 4 /uL (0-1359); URINE BILIRUBIN NEGATIVE (NEGATIVE); URINE COLOR YELLOW; URINE GLUCOSE (UA) NEGATIVE (NEGATIVE); URINE KETONE NEGATIVE (NEGATIVE); URINE LEUK ESTERASE TRACE (NEGATIVE); URINE NITRITE NEGATIVE (NEGATIVE); URINE PROTEIN NEGATIVE (NEGATIVE); URINE RBC 7 /uL (0-23.9); URINE WBC 31 /uL (0-25.8)
[2022-12-07] MEDS ORDERED: ACETAMINOPHEN 325 MG TABLET (FP) PO ONE (21:16)
[2022-12-08 00:59] VITALS: BP 91/62; PULSE 55
== END 2022-12-08 02:17 | disposition home or self-care (01) ==
LOC: JER 14:02
DX: F03.90 Unspecified dementia, unspecified severity, without behavioral disturbance, psychotic disturbance, mood disturbance, and anxiety (principal); G30.9 Alzheimer's disease, unspecified; R13.10 Dysphagia, unspecified
CPT/HCPCS: 36415; 70450-TC; 71045-TC-FY; 74177-TC; 80053; 81003; 85025; 99285-25; Q9967

== ENCOUNTER 2023-04-10 12:53 | Emergency (ER) | payer OTHER ==
[2023-04-10] MEDS ORDERED: SOD BORATE/BORIC AC/WATER/NACL (EYE WASH) 118 ML BOTTLE OU ONE (15:05)
[2023-04-10 15:55] LABS: EPI CELLS 9 /uL (0-25.1); HYALINE CASTS 4 /uL (0-3.1); PH,URINE 7.5 (5.0-8.0); URINE APPEARANCE CLEAR; URINE BACTERIA 16 /uL (0-1359); URINE BILIRUBIN NEGATIVE (NEGATIVE); URINE COLOR YELLOW; URINE GLUCOSE (UA) NEGATIVE (NEGATIVE); URINE KETONE NEGATIVE (NEGATIVE); URINE LEUK ESTERASE 3+ (NEGATIVE); URINE NITRITE NEGATIVE (NEGATIVE); URINE PROTEIN NEGATIVE (NEGATIVE); URINE UROBILINOGEN 0.2 mg/dL (0.2-1.0); URINE WBC 141 /uL (0-25.8)
[2023-04-10 16:25] LABS: YEAST FEW (NEGATIVE)
[2023-04-10] MEDS ORDERED: AZITHROMYCIN 200 MG/5 ML BOTTLE PEG ONE (16:38)
[2023-04-10 17:38] VITALS: RESP 18
[2023-04-11 00:07] VITALS: BP 134/67; PULSE 60; TEMP 97.9
== END 2023-04-11 02:10 | disposition home or self-care (01) ==
LOC: JER 12:53
DX: R05.9 Cough, unspecified (principal); R09.81 Nasal congestion; R06.02 Shortness of breath; Z20.822 Contact with and (suspected) exposure to COVID-19
CPT/HCPCS: 0241U-QW; 71045-TC-FY; 81003; 87086; 93005; 93010; 99285-25

== ENCOUNTER 2023-07-13 13:03 | Emergency (ER) | payer OTHER ==
[2023-07-13 13:59] VITALS: TEMP 98.1; BMI 22.3
[2023-07-13 16:06] LABS: POTASSIUM 5.6 mmol/L (3.5-5.1)
[2023-07-13 16:08] LABS: ALBUMIN 2.9 g/dl (3.4-5.0); BLOOD UREA NITROGEN 17.8 mg/dL (7-18); CALCIUM 8.6 mg/dL (8.5-10.1)
[2023-07-13 16:11] LABS: CREATININE 0.5 mg/dL (0.55-1.3)
[2023-07-13 16:12] LABS: BASO % 0.7 % (0-2.0); EOS % 9.5 % (0-4.5); HEMOGLOBIN 11.5 GM/dL (10.7-15.3); LYMPH % 15.5 % (8-40); MCH 30.9 pg (25.7-33.7); MCHC 32.9 g/dl (32.0-36.0); MEAN CELL VOLUME 93.8 fl (80-96); MONO % 6.2 % (3.8-10.2); NEUT % 68.1 % (42.8-82.8); RBC 3.73 M/mm3 (3.60-5.2); RDW 14.6 % (11.6-15.6); WHITE BLOOD COUNT 6.3 K/mm3 (4.0-10.0)
[2023-07-13 16:13] LABS: BILIRUBIN,TOTAL 0.4 mg/dL (0.2-1); TOT PROT 7.3 g/dl (6.4-8.2)
[2023-07-13] MEDS: SODIUM CHLORIDE 1,000 ML IV STA (16:18)
[2023-07-13 16:31] LABS: MEAN PLT VOLUME 10.6 fl (7.5-11.1); PLATELET COUNT 155 10^3/uL (134-434); PLATELET ESTIMATE ADEQUATE
[2023-07-13 16:47] LABS: EPI CELLS 7 /uL (0-25.1); HYALINE CASTS 1 /uL (0-3.1); PH,URINE 6.5 (5.0-8.0); URINE APPEARANCE CLOUDY; URINE BACTERIA >9,000 /uL (0-1359); URINE BILIRUBIN NEGATIVE (NEGATIVE); URINE COLOR YELLOW; URINE GLUCOSE (UA) NEGATIVE (NEGATIVE); URINE KETONE NEGATIVE (NEGATIVE); URINE LEUK ESTERASE 3+ (NEGATIVE); URINE NITRITE POSITIVE (NEGATIVE); URINE PROTEIN TRACE (NEGATIVE); URINE RBC 43 /uL (0-23.9); URINE UROBILINOGEN 0.2 mg/dL (0.2-1.0); URINE WBC 760 /uL (0-25.8)
[2023-07-13] MEDS ORDERED: CEPHALEXIN MONOHYDRATE 500 MG CAPSULE (UD) ONE (18:13)
[2023-07-13] MEDS ORDERED: CEFTRIAXONE 1 GM/50 ML BAG ONE (18:14)
[2023-07-13] MEDS: CEFTRIAXONE 1,000 MG in DEXTROSE 5%-WATER - 50 ML IVPB ONE (18:15)
[2023-07-13] MEDS: CEPHALEXIN MONOHYDRATE 500 MG CAPSULE (UD) PO ONE ×3 (18:23)
[2023-07-13] MEDS: SODIUM PHOSPHATE/NA BIPHOS 133 ML ENEMA PR ONE (18:23)
[2023-07-13 18:39] VITALS: BP 128/99; PULSE 78; RESP 18
== END 2023-07-13 20:05 | disposition home or self-care (01) ==
LOC: JER 13:03
PROC: 0DH60UZ Insertion of Feeding Device into Stomach, Open Approach (ICD-10-PCS; principal; 2023-07-13)
PROC: 3E03329 Introduction of Other Anti-infective into Peripheral Vein, Percutaneous Approach (ICD-10-PCS; 2023-07-13)
PROC: 3E0337Z Introduction of Electrolytic and Water Balance Substance into Peripheral Vein, Percutaneous Approach (ICD-10-PCS; 2023-07-13)
DX: K94.23 Gastrostomy malfunction (principal); Z20.822 Contact with and (suspected) exposure to COVID-19
CPT/HCPCS: 0241U-QW; 36415; 43762; 71045-TC-FY; 74018-TC-FY; 80053; 81003; 83605; 85025; 87040; 87086; 87186; 96361; 96365; 99284-25

== ENCOUNTER 2023-07-14 14:36 | Emergency (ER) | payer OTHER ==
[2023-07-14 16:04] VITALS: TEMP 98.3; BMI 21.2
[2023-07-14] MEDS ORDERED: LIDOCAINE HCL 2% JELLY 11 ML TP ONE (19:05)
[2023-07-14] MEDS ORDERED: POLYETHYLENE GLYCOL (HEALTHYLAX) 3350 17 GM PACKET ONE (19:20)
[2023-07-14] MEDS: POLYETHYLENE GLYCOL (HEALTHYLAX) 3350 17 GM PACKET PO ONE (19:47)
[2023-07-14] MEDS ORDERED: GLYCERIN 1 RECTAL SUPPOSITORY, PEDIATRIC RC ONE (20:36)
[2023-07-15 00:52] VITALS: BP 158/80; PULSE 73; RESP 16
[2023-07-15] MEDS: APIXABAN 2.5 MG TABLET GT STA (01:42)
[2023-07-15] MEDS: amLODIPine BESYLATE 10 MG TABLET (FP) GT STA (01:42)
[2023-07-15] MEDS: OXcarbazepine 300 MG/5 ML UNIT DOSE CUPS PO STA (01:42)
== END 2023-07-15 02:16 | disposition home or self-care (01) ==
LOC: JER 14:36
DX: K94.23 Gastrostomy malfunction (principal); R05.9 Cough, unspecified
CPT/HCPCS: 74018-TC-FY; 99283-25

== ENCOUNTER 2023-09-20 18:53 | Inpatient (IN) | payer OTHER ==
[2023-09-20 20:22] LABS: EOS % 8.7 % (0-4.5); HEMATOCRIT 38.2 % (32.4-45.2); HEMOGLOBIN 12.9 GM/dL (10.7-15.3); LYMPH % 24.8 % (8-40); MCH 31.2 pg (25.7-33.7); MCHC 33.6 g/dl (32.0-36.0); MEAN CELL VOLUME 92.9 fl (80-96); MEAN PLT VOLUME 8.9 fl (7.5-11.1); MONO % 7.9 % (3.8-10.2); NEUT % 57.6 % (42.8-82.8); PLATELET COUNT 246 10^3/uL (134-434); RBC 4.12 M/mm3 (3.60-5.2); RDW 13.5 % (11.6-15.6); WHITE BLOOD COUNT 4.4 K/mm3 (4.0-10.0)
[2023-09-20 20:28] LABS: INR 1.14 (0.83-1.09); PROTHROMBIN TIME (PATIENT) 12.8 SEC (9.7-13.0)
[2023-09-20 20:31] LABS: ACTIVATED PTT 38.5 SECONDS (25.2-36.5)
[2023-09-20 20:43] LABS: POTASSIUM 4.6 mmol/L (3.5-5.1)
[2023-09-20 20:45] LABS: CALCIUM 9.6 mg/dL (8.5-10.1)
[2023-09-20 20:46] LABS: ALBUMIN 3.4 g/dl (3.4-5.0); BLOOD UREA NITROGEN 9.4 mg/dL (7-18); MAGNESIUM 2.3 mg/dL (1.8-2.4)
[2023-09-20 20:49] LABS: CREATININE 0.6 mg/dL (0.55-1.3); PHOSPHOROUS 3.6 mg/dL (2.5-4.9)
[2023-09-20 20:51] LABS: BILIRUBIN,TOTAL 0.3 mg/dL (0.2-1)
[2023-09-20] MEDS: SODIUM CHLORIDE 0.9% 500 ML INFUS.BAG IV ONE (22:01)
[2023-09-20 23:18] LABS: EPI CELLS 18 /uL (0-25.1); HYALINE CASTS 6 /uL (0-3.1); URINE APPEARANCE CLEAR; URINE BACTERIA 0 /uL (0-1359); URINE BILIRUBIN NEGATIVE (NEGATIVE); URINE COLOR YELLOW; URINE GLUCOSE (UA) NEGATIVE (NEGATIVE); URINE KETONE NEGATIVE (NEGATIVE); URINE LEUK ESTERASE 3+ (NEGATIVE); URINE NITRITE NEGATIVE (NEGATIVE); URINE PROTEIN NEGATIVE (NEGATIVE); URINE UROBILINOGEN 0.2 mg/dL (0.2-1.0); URINE WBC 254 /uL (0-25.8)
[2023-09-20] MEDS ORDERED: LACTULOSE 20 GM/30 ML UDC (FOR ORAL USE ONLY) PO ONE (23:27)
[2023-09-20] MEDS ORDERED: POLYETHYLENE GLYCOL (HEALTHYLAX) 3350 17 GM PACKET PO SCH (23:30)
[2023-09-20 23:36] LABS: YEAST MANY (NEGATIVE)
[2023-09-21] MEDS ORDERED: CEFTRIAXONE 1 GM/50 ML BAG ONE (00:20)
[2023-09-21] MEDS ORDERED: LACTULOSE 20 GM/30 ML UDC (FOR ORAL USE ONLY) ONE ×2 (00:20→02:44)
[2023-09-21] MEDS ORDERED: ACETAMINOPHEN INJECTION 100 ML IVPB ONE (00:20)
[2023-09-21] MEDS: LACTULOSE 20 GM/30 ML UDC (FOR ORAL USE ONLY) PO ONE (00:39)
[2023-09-21] MEDS: POLYETHYLENE GLYCOL (HEALTHYLAX) 3350 17 GM PACKET PO SCH (00:39)
[2023-09-21] MEDS: ACETAMINOPHEN 1000 MG/100 ML BAG IVPB ONE (00:39)
[2023-09-21] MEDS ORDERED: amLODIPine BESYLATE 5 MG TABLET (FP) ONE (00:40)
[2023-09-21] MEDS: amLODIPine BESYLATE 5 MG TABLET (FP) PO ONE (00:50)
[2023-09-21] MEDS ORDERED: BISACODYL 5 MG TABLET.DR (FP) PO PRN (01:32)
[2023-09-21] MEDS ORDERED: HYDROCORTISONE ACETATE 25 MG/SUPP.RECT RC PRN (01:32)
[2023-09-21] MEDS: SODIUM PHOSPHATE/NA BIPHOS 133 ML ENEMA PR ONE (01:32)
[2023-09-21] MEDS ORDERED: LACTULOSE 10 GM/15 ML GT PRN (01:32)
[2023-09-21] MEDS ORDERED: POLYETHYLENE GLYCOL (HEALTHYLAX) 3350 17 GM PACKET ONE (01:46)
[2023-09-21] MEDS: POLYETHYLENE GLYCOL (HEALTHYLAX) 3350 17 GM PACKET GT SCH ×2 (01:46→02:44)
[2023-09-21] MEDS: SODIUM CHLORIDE 1,000 ML IV SCH (01:46)
[2023-09-21] MEDS ORDERED: ACETAMINOPHEN 1000 MG/100 ML BAG IVPB PRN (02:05)
[2023-09-21] MEDS ORDERED: MAGNESIUM CITRATE 300 ML BOTTLE ONE (02:38)
[2023-09-21] MEDS: OXcarbazepine 300 MG/5 ML 250 ML BULK BOTTLE GT SCH (02:43)
[2023-09-21] MEDS: LACTULOSE 30 GM GT SCH (02:44)
[2023-09-21] MEDS: MAGNESIUM CITRATE 300 ML BOTTLE PEG ONE (02:44)
[2023-09-21] MEDS: MUPIROCIN 2% TOPICAL OINTMENT 22 GM TUBE TP SCH (05:25)
[2023-09-21] MEDS ORDERED: LEVOTHYROXINE NA 50 MCG TABLET (FP) ONE (06:04)
[2023-09-21] MEDS: LEVOTHYROXINE NA 50 MCG TABLET (FP) GT SCH (06:34)
[2023-09-21] MEDS: AMPICILLIN NA/SULBACTAM NA 3 GM in DEXTROSE 5%-WATER 100 ML IVPB SCH (08:53)
[2023-09-21] MEDS: APIXABAN 2.5 MG TABLET GT SCH (10:52)
[2023-09-21] MEDS: BISACODYL 5 MG TABLET.DR (FP) PO SCH (10:52)
[2023-09-21] MEDS: amLODIPine BESYLATE 10 MG TABLET (FP) GT SCH (10:52)
[2023-09-21] MEDS: SENNOSIDES 8.6MG TABLET (FP) PO SCH (10:52)
[2023-09-21] MEDS: MULTIVIT-MINERALS ORAL LIQUID GT SCH (10:53)
[2023-09-21] MEDS: NYSTATIN 100000 UNIT/GM TOPICAL OINTMENT 15 GM TUBE TP SCH (12:15)
[2023-09-21] MEDS: GLYCOPYRROLATE 1 MG TABLET GT SCH (12:16)
[2023-09-21] MEDS: BISACODYL 10 MG SUPP.RECT PR ONE (13:05)
[2023-09-21] MEDS: LACTULOSE 20 GM/30 ML UDC (FOR ORAL USE ONLY) GT SCH (14:42)
[2023-09-21] MEDS: MINERAL OIL ENEMA 133 ML ENEMA RC ONE (16:24)
[2023-09-21] MEDS: OXcarbazepine 300 MG/5 ML UNIT DOSE CUPS GT SCH (17:49)
[2023-09-21] MEDS: ATORVASTATIN CA 10 MG TABLET (FP) GT SCH (21:31)
[2023-09-21] MEDS: MIRTAZAPINE 15 MG TABLET (FP) GT SCH (21:31)
[2023-09-22] MEDS: CEFTRIAXONE 1 GM in DEXTROSE 5%-WATER - 50 ML IVPB ONE (01:13)
[2023-09-22 08:06] LABS: POTASSIUM 3.3 mmol/L (3.5-5.1)
[2023-09-22 08:10] LABS: CALCIUM 8.4 mg/dL (8.5-10.1)
[2023-09-22 08:11] LABS: BLOOD UREA NITROGEN 6.3 mg/dL (7-18); MAGNESIUM 2.2 mg/dL (1.8-2.4)
[2023-09-22 08:14] LABS: CREATININE 0.7 mg/dL (0.55-1.3); PHOSPHOROUS 3.7 mg/dL (2.5-4.9)
[2023-09-22 08:33] LABS: BASO % 0.7 % (0-2.0); EOS % 2.1 % (0-4.5); HEMATOCRIT 34.3 % (32.4-45.2); HEMOGLOBIN 11.1 GM/dL (10.7-15.3); LYMPH % 13.9 % (8-40); MCH 30.7 pg (25.7-33.7); MCHC 32.5 g/dl (32.0-36.0); MEAN CELL VOLUME 94.3 fl (80-96); MEAN PLT VOLUME 9.4 fl (7.5-11.1); MONO % 6.9 % (3.8-10.2); NEUT % 76.4 % (42.8-82.8); PLATELET COUNT 225 10^3/uL (134-434); RBC 3.63 M/mm3 (3.60-5.2); RDW 13.6 % (11.6-15.6); WHITE BLOOD COUNT 5.2 K/mm3 (4.0-10.0)
[2023-09-22] MEDS: DEXTROSE 5%-LACTATED RINGERS 1,000 ML IV SCH (11:50)
[2023-09-22] MEDS: SILVER SULFADIAZINE 1% TOP CREAM 50 GM JAR TP SCH (12:30)
[2023-09-22] MEDS: OXcarbazepine 300 MG/5 ML 250 ML BULK BOTTLE GT SCH ×2 (17:20→21:13)
[2023-09-22] MEDS: TRIMETHOBENZAMIDE HCL 200MG/2ML INJ IM PRN (17:31)
[2023-09-23 07:35] LABS: HEMATOCRIT 33.2 % (32.4-45.2); MCH 30.5 pg (25.7-33.7); MCHC 33.1 g/dl (32.0-36.0); MEAN CELL VOLUME 92.1 fl (80-96); MEAN PLT VOLUME 9.1 fl (7.5-11.1); PLATELET COUNT 213 10^3/uL (134-434); RDW 13.6 % (11.6-15.6); WHITE BLOOD COUNT 6.8 K/mm3 (4.0-10.0)
[2023-09-23 07:54] LABS: ALBUMIN 2.8 g/dl (3.4-5.0); BLOOD UREA NITROGEN 5.8 mg/dL (7-18); CALCIUM 8.9 mg/dL (8.5-10.1); MAGNESIUM 2.3 mg/dL (1.8-2.4)
[2023-09-23 07:57] LABS: CREATININE 0.7 mg/dL (0.55-1.3); PHOSPHOROUS 3.6 mg/dL (2.5-4.9)
[2023-09-23 07:58] LABS: BILIRUBIN,TOTAL 0.5 mg/dL (0.2-1); TOT PROT 6.6 g/dl (6.4-8.2)
[2023-09-23] MEDS: OXcarbazepine 300 MG/5 ML 250 ML BULK BOTTLE GT SCH ×2 (09:50→14:30)
[2023-09-23] MEDS: POTASSIUM PHOSPHATE 30 MM in SODIUM CHLORIDE 500 ML IVPB ONE (10:05)
[2023-09-23] MEDS: POTASSIUM CHLORIDE 40 MEQ in DEXTROSE 5%-LACTATED RINGERS 1,000 ML IV SCH (10:31)
[2023-09-23] MEDS ORDERED: AMINO ACIDS 4.25%/D5W 1,000 ML IV SCH ×2 (15:00→19:00)
[2023-09-23] MEDS: CEFTRIAXONE 1 GM in DEXTROSE 5%-WATER - 50 ML IVPB SCH (17:08)
[2023-09-23] MEDS: DEXTROSE 5%-LACTATED RINGERS 1,000 ML with POTASSIUM CHLORIDE 40 MEQ IV SCH (17:52)
[2023-09-23] MEDS: ACETAMINOPHEN 1000 MG/100 ML BAG IVPB PRN (19:10)
[2023-09-23] MEDS: AMINO ACIDS 4.25%/D5W 1,000 ML IV SCH (20:35)
[2023-09-24 08:29] LABS: HEMATOCRIT 36.4 % (32.4-45.2); HEMOGLOBIN 11.7 GM/dL (10.7-15.3); MCH 30.4 pg (25.7-33.7); MCHC 32.2 g/dl (32.0-36.0); MEAN CELL VOLUME 94.4 fl (80-96); MEAN PLT VOLUME 9.6 fl (7.5-11.1); PLATELET COUNT 211 10^3/uL (134-434); RBC 3.86 M/mm3 (3.60-5.2); RDW 13.7 % (11.6-15.6); WHITE BLOOD COUNT 4.7 K/mm3 (4.0-10.0)
[2023-09-24 08:32] LABS: CALCIUM 8.7 mg/dL (8.5-10.1)
[2023-09-24 08:33] LABS: ALBUMIN 2.7 g/dl (3.4-5.0); BLOOD UREA NITROGEN 6.9 mg/dL (7-18); MAGNESIUM 2.1 mg/dL (1.8-2.4)
[2023-09-24 08:36] LABS: CREATININE 0.6 mg/dL (0.55-1.3); PHOSPHOROUS 2.5 mg/dL (2.5-4.9)
[2023-09-24 08:37] LABS: BILIRUBIN,TOTAL 0.3 mg/dL (0.2-1); TOT PROT 6.5 g/dl (6.4-8.2)
[2023-09-24] MEDS: POTASSIUM CHLORIDE ORAL LIQUID 20 MEQ/15 ML PO SCH (14:52)
[2023-09-24] MEDS ORDERED: TRIMETHOBENZAMIDE HCL 200MG/2ML INJ IM PRN (18:58)
[2023-09-24] MEDS: POTASSIUM CHLORIDE ORAL LIQUID 20 MEQ/15 ML GT SCH (21:15)
[2023-09-24] MEDS ORDERED: POTASSIUM CHLORIDE ORAL LIQUID 20 MEQ/15 ML PO SCH (22:00)
[2023-09-25 10:05] LABS: HEMATOCRIT 36.2 % (32.4-45.2); HEMOGLOBIN 11.9 GM/dL (10.7-15.3); MCH 30.7 pg (25.7-33.7); MCHC 32.9 g/dl (32.0-36.0); MEAN CELL VOLUME 93.2 fl (80-96); MEAN PLT VOLUME 9.4 fl (7.5-11.1); PLATELET COUNT 217 10^3/uL (134-434); RBC 3.88 M/mm3 (3.60-5.2); RDW 13.9 % (11.6-15.6); WHITE BLOOD COUNT 4.4 K/mm3 (4.0-10.0)
[2023-09-25 10:25] LABS: ALBUMIN 2.6 g/dl (3.4-5.0); BLOOD UREA NITROGEN 10.9 mg/dL (7-18); MAGNESIUM 1.8 mg/dL (1.8-2.4)
[2023-09-25 10:27] LABS: CREATININE 0.6 mg/dL (0.55-1.3); PHOSPHOROUS 2.1 mg/dL (2.5-4.9)
[2023-09-25 10:29] LABS: BILIRUBIN,TOTAL 0.2 mg/dL (0.2-1); TOT PROT 6.4 g/dl (6.4-8.2)
[2023-09-25] MEDS: OXcarbazepine 300 MG/5 ML UNIT DOSE CUPS GT SCH (10:56)
[2023-09-25] MEDS: OXcarbazepine 300 MG/5 ML 250 ML BULK BOTTLE GT ONE (16:30)
[2023-09-25] MEDS: POLYETHYLENE GLYCOL (HEALTHYLAX) 3350 17 GM PACKET GT SCH (22:09)
[2023-09-26 08:13] LABS: POTASSIUM 3.5 mmol/L (3.5-5.1)
[2023-09-26 08:16] LABS: CALCIUM 8.4 mg/dL (8.5-10.1)
[2023-09-26 08:17] LABS: ALBUMIN 2.4 g/dl (3.4-5.0); BLOOD UREA NITROGEN 16.8 mg/dL (7-18); MAGNESIUM 1.5 mg/dL (1.8-2.4)
[2023-09-26 08:20] LABS: CREATININE 0.4 mg/dL (0.55-1.3); PHOSPHOROUS 2.1 mg/dL (2.5-4.9)
[2023-09-26 08:21] LABS: TOT PROT 5.7 g/dl (6.4-8.2)
[2023-09-26 08:22] LABS: BILIRUBIN,TOTAL 0.3 mg/dL (0.2-1)
[2023-09-26 08:27] LABS: HEMATOCRIT 33.1 % (32.4-45.2); HEMOGLOBIN 10.9 GM/dL (10.7-15.3); MCH 30.8 pg (25.7-33.7); MCHC 32.8 g/dl (32.0-36.0); MEAN CELL VOLUME 93.9 fl (80-96); MEAN PLT VOLUME 9.2 fl (7.5-11.1); PLATELET COUNT 213 10^3/uL (134-434); RBC 3.52 M/mm3 (3.60-5.2); RDW 13.8 % (11.6-15.6); WHITE BLOOD COUNT 4.9 K/mm3 (4.0-10.0)
[2023-09-26] MEDS: MAGNESIUM 2GM/50ML STERILE WATER IVPB IVPB ONE (11:04)
[2023-09-26] MEDS: NAPH,MB-DB/K PH,MBDB POWDER PACKET PO ONE (11:04)
[2023-09-26] MEDS: AMINO ACIDS/PROTEIN HYDROLYS 30 ML LIQUID.PKT PO SCH (15:27)
[2023-09-27] MEDS ORDERED: INSULIN ASPART SLIDING SCALE (NOVOLOG) 1 VIAL SQ ONE (06:43)
[2023-09-27 09:27] LABS: HEMATOCRIT 36.9 % (32.4-45.2); HEMOGLOBIN 12.7 GM/dL (10.7-15.3); MCH 31.8 pg (25.7-33.7); MCHC 34.4 g/dl (32.0-36.0); MEAN CELL VOLUME 92.5 fl (80-96); MEAN PLT VOLUME 9.6 fl (7.5-11.1); PLATELET COUNT 220 10^3/uL (134-434); RBC 3.99 M/mm3 (3.60-5.2); WHITE BLOOD COUNT 7.3 K/mm3 (4.0-10.0)
[2023-09-27 09:46] LABS: CALCIUM 8.5 mg/dL (8.5-10.1)
[2023-09-27 09:47] LABS: ALBUMIN 2.6 g/dl (3.4-5.0); BLOOD UREA NITROGEN 22.9 mg/dL (7-18); MAGNESIUM 1.8 mg/dL (1.8-2.4)
[2023-09-27 09:49] LABS: PHOSPHOROUS 3.1 mg/dL (2.5-4.9)
[2023-09-27 09:50] LABS: BILIRUBIN,TOTAL 0.4 mg/dL (0.2-1); CREATININE 0.4 mg/dL (0.55-1.3); TOT PROT 6.3 g/dl (6.4-8.2)
[2023-09-27] MEDS: OXcarbazepine 300 MG/5 ML UNIT DOSE CUPS GT SCH ×2 (14:27→18:22)
[2023-09-28 09:42] LABS: HEMATOCRIT 36.3 % (32.4-45.2); HEMOGLOBIN 11.7 GM/dL (10.7-15.3); MCH 30.5 pg (25.7-33.7); MCHC 32.3 g/dl (32.0-36.0); MEAN CELL VOLUME 94.5 fl (80-96); MEAN PLT VOLUME 8.8 fl (7.5-11.1); PLATELET COUNT 233 10^3/uL (134-434); POTASSIUM 3.1 mmol/L (3.5-5.1); RBC 3.84 M/mm3 (3.60-5.2); RDW 13.7 % (11.6-15.6); WHITE BLOOD COUNT 4.8 K/mm3 (4.0-10.0)
[2023-09-28 10:03] LABS: CALCIUM 8.9 mg/dL (8.5-10.1)
[2023-09-28 10:04] LABS: BLOOD UREA NITROGEN 23.5 mg/dL (7-18); MAGNESIUM 1.8 mg/dL (1.8-2.4)
[2023-09-28 10:07] LABS: CREATININE 0.6 mg/dL (0.55-1.3); PHOSPHOROUS 3.6 mg/dL (2.5-4.9)
[2023-09-28] MEDS: POTASSIUM CHLORIDE ORAL LIQUID 20 MEQ/15 ML PO SCH (14:54)
[2023-09-28] MEDS: POTASSIUM CHLORIDE ORAL LIQUID 20 MEQ/15 ML GT SCH (21:29)
[2023-09-30 10:25] LABS: POTASSIUM 4.6 mmol/L (3.5-5.1)
[2023-09-30 10:32] LABS: CALCIUM 8.6 mg/dL (8.5-10.1)
[2023-09-30 10:35] LABS: PHOSPHOROUS 4.3 mg/dL (2.5-4.9)
[2023-09-30 10:36] LABS: CREATININE 0.5 mg/dL (0.55-1.3)
[2023-10-01] MEDS: ACETAMINOPHEN 650 MG/20.3 ML ORAL SOLUTION (CUPS) PEG PRN (20:06)
[2023-10-02 09:59] VITALS: BP 124/57; PULSE 55; RESP 16; TEMP 98
[2023-10-02 12:33] VITALS: BMI 21.2
== END 2023-10-02 11:20 | disposition home or self-care (01) | DRG 388 ==
LOC: JER 18:53 → JERBED 09-21 00:46 → INTOOBSV 09-21 00:46 → J6S 09-21 06:39 → OBSVTOIN 09-25 10:14
PROVIDERS: ADMIT Internal Medicine; ATTEND Internal Medicine
DX: K56.7 Ileus, unspecified (principal); G93.41 Metabolic encephalopathy; R53.2 Functional quadriplegia; K94.23 Gastrostomy malfunction; N39.0 Urinary tract infection, site not specified; R47.01 Aphasia; G30.9 Alzheimer's disease, unspecified; F02.80 Dementia in other diseases classified elsewhere, unspecified severity, without behavioral disturbance, psychotic disturbance, mood disturbance, and anxiety; G20.A1 Parkinson's disease without dyskinesia, without mention of fluctuations; G40.909 Epilepsy, unspecified, not intractable, without status epilepticus; K59.00 Constipation, unspecified; E78.00 Pure hypercholesterolemia, unspecified; E78.5 Hyperlipidemia, unspecified; E03.9 Hypothyroidism, unspecified; I10 Essential (primary) hypertension; R13.19 Other dysphagia; L89.322 Pressure ulcer of left buttock, stage 2; L89.312 Pressure ulcer of right buttock, stage 2; R33.9 Retention of urine, unspecified; K52.89 Other specified noninfective gastroenteritis and colitis; E87.6 Hypokalemia; R62.7 Adult failure to thrive; Z68.21 Body mass index [BMI] 21.0-21.9, adult; Z74.01 Bed confinement status; Z86.73 Personal history of transient ischemic attack (TIA), and cerebral infarction without residual deficits; Z86.718 Personal history of other venous thrombosis and embolism
CPT/HCPCS: 0241U-QW; 36415; 71045-TC-FY; 74018-TC-FY; 74176-TC; 74177-TC; 80048; 80053; 81003; 82962; 82977; 83605; 83690; 83735; 84100; 84484; 85025; 85027; 85610; 85730; 86850; 86900; 86901; 87040; 87077; 87086; 93005; 93010; 99285-25; G0378; J0131

== ENCOUNTER 2023-10-23 10:42 | Emergency (ER) | payer OTHER ==
[2023-10-23 11:32] VITALS: TEMP 98.4; BMI 21.6
[2023-10-23 15:01] LABS: BASO % 0.4 % (0-2.0); EOS % 3.6 % (0-4.5); HEMATOCRIT 37.5 % (32.4-45.2); HEMOGLOBIN 12.9 GM/dL (10.7-15.3); LYMPH % 16.8 % (8-40); MCH 31.9 pg (25.7-33.7); MCHC 34.3 g/dl (32.0-36.0); MEAN CELL VOLUME 92.8 fl (80-96); MEAN PLT VOLUME 9.2 fl (7.5-11.1); MONO % 15.9 % (3.8-10.2); NEUT % 63.3 % (42.8-82.8); PLATELET COUNT 152 10^3/uL (134-434); RBC 4.04 M/mm3 (3.60-5.2); WHITE BLOOD COUNT 4.6 K/mm3 (4.0-10.0)
[2023-10-23] MEDS: SODIUM CHLORIDE 500 ML IV STA (15:11)
[2023-10-23 15:26] LABS: POTASSIUM 5.4 mmol/L (3.5-5.1)
[2023-10-23 15:28] LABS: BLOOD UREA NITROGEN 14.9 mg/dL (7-18); CALCIUM 8.7 mg/dL (8.5-10.1)
[2023-10-23 15:32] LABS: CREATININE 0.4 mg/dL (0.55-1.3)
[2023-10-23 15:33] LABS: BILIRUBIN,TOTAL 0.4 mg/dL (0.2-1); TOT PROT 7.2 g/dl (6.4-8.2)
[2023-10-23 16:55] LABS: EPI CELLS 2 /uL (0-25.1); HYALINE CASTS 2 /uL (0-3.1); PH,URINE 7.5 (5.0-8.0); URINE APPEARANCE CLEAR; URINE BACTERIA 2944 /uL (0-1359); URINE BILIRUBIN NEGATIVE (NEGATIVE); URINE COLOR YELLOW; URINE GLUCOSE (UA) NEGATIVE (NEGATIVE); URINE KETONE NEGATIVE (NEGATIVE); URINE LEUK ESTERASE 3+ (NEGATIVE); URINE NITRITE NEGATIVE (NEGATIVE); URINE PROTEIN NEGATIVE (NEGATIVE); URINE RBC 22 /uL (0-23.9); URINE UROBILINOGEN 0.2 mg/dL (0.2-1.0); URINE WBC 565 /uL (0-25.8)
[2023-10-23] MEDS ORDERED: CEFTRIAXONE 1 GM/50 ML BAG ONE (17:35)
[2023-10-23] MEDS ORDERED: ACETAMINOPHEN INJECTION 100 ML IVPB ONE (17:35)
[2023-10-23] MEDS: CEFTRIAXONE 1,000 MG in DEXTROSE 5%-WATER - 50 ML IVPB ONE (17:46)
[2023-10-23] MEDS: SODIUM CHLORIDE 0.9% 500 ML INFUS.BAG IV ONE (17:55)
[2023-10-23] MEDS: ACETAMINOPHEN 1000 MG/100 ML BAG IVPB ONE (17:55)
[2023-10-23] MEDS: OXcarbazepine 300 MG/5 ML 250 ML BULK BOTTLE PO ONE ×2 (20:12→20:13)
[2023-10-23] MEDS: GLYCOPYRROLATE 1 MG TABLET PO ONE (20:13)
[2023-10-23] MEDS ORDERED: APIXABAN 2.5 MG TABLET ONE (23:05)
[2023-10-23] MEDS: APIXABAN 2.5 MG TABLET PO SCH (23:20)
[2023-10-23 23:32] VITALS: BP 170/51; PULSE 59; RESP 20
[2023-10-23] MEDS ORDERED: SODIUM ZIRCONIUM CYCLOSILICATE (LOKELMA) 10 GM PACKET ONE (23:42)
== END 2023-10-24 00:27 | disposition home or self-care (01) ==
LOC: JER 10:42
PROC: 3E03329 Introduction of Other Anti-infective into Peripheral Vein, Percutaneous Approach (ICD-10-PCS; principal; 2023-10-23)
PROC: 3E033GC Introduction of Other Therapeutic Substance into Peripheral Vein, Percutaneous Approach (ICD-10-PCS; 2023-10-23)
PROC: 3E0337Z Introduction of Electrolytic and Water Balance Substance into Peripheral Vein, Percutaneous Approach (ICD-10-PCS; 2023-10-23)
DX: N39.0 Urinary tract infection, site not specified (principal)
CPT/HCPCS: 36415; 80053; 81003; 85025; 87086; 87186; 96361; 96365; 96375; 99284-25; J0131

== ENCOUNTER 2023-10-29 19:27 | Inpatient (IN) | payer OTHER ==
[2023-10-29 19:39] VITALS: BMI 26.5
[2023-10-29] MEDS: SODIUM CHLORIDE 0.9% 500 ML INFUS.BAG IV ONE (20:46)
[2023-10-29 21:04] LABS: BASO % 1.1 % (0-2.0); EOS % 5.4 % (0-4.5); HEMATOCRIT 35.3 % (32.4-45.2); HEMOGLOBIN 12.1 GM/dL (10.7-15.3); LYMPH % 25.3 % (8-40); MCH 31.6 pg (25.7-33.7); MCHC 34.3 g/dl (32.0-36.0); MEAN CELL VOLUME 92.1 fl (80-96); MEAN PLT VOLUME 9.6 fl (7.5-11.1); MONO % 14.5 % (3.8-10.2); NEUT % 53.7 % (42.8-82.8); PLATELET COUNT 166 10^3/uL (134-434); RBC 3.83 M/mm3 (3.60-5.2); RDW 14.7 % (11.6-15.6)
[2023-10-29 21:09] LABS: POTASSIUM 4.4 mmol/L (3.5-5.1)
[2023-10-29 21:11] LABS: CALCIUM 9.2 mg/dL (8.5-10.1)
[2023-10-29 21:12] LABS: ALBUMIN 3.4 g/dl (3.4-5.0); BLOOD UREA NITROGEN 16.8 mg/dL (7-18)
[2023-10-29 21:13] LABS: MAGNESIUM 2.3 mg/dL (1.8-2.4)
[2023-10-29 21:15] LABS: CREATININE 0.7 mg/dL (0.55-1.3)
[2023-10-29 21:17] LABS: BILIRUBIN,TOTAL 0.3 mg/dL (0.2-1); TOT PROT 7.6 g/dl (6.4-8.2)
[2023-10-29 21:45] LABS: EPI CELLS >36 /uL (0-25.1); HYALINE CASTS 12 /uL (0-3.1); URINE APPEARANCE TURBID; URINE BACTERIA 19 /uL (0-1359); URINE BILIRUBIN NEGATIVE (NEGATIVE); URINE COLOR YELLOW; URINE GLUCOSE (UA) NEGATIVE (NEGATIVE); URINE KETONE NEGATIVE (NEGATIVE); URINE LEUK ESTERASE 3+ (NEGATIVE); URINE NITRITE NEGATIVE (NEGATIVE); URINE PROTEIN TRACE (NEGATIVE); URINE UROBILINOGEN 0.2 mg/dL (0.2-1.0); URINE WBC 398 /uL (0-25.8)
[2023-10-29] MEDS ORDERED: APIXABAN 2.5 MG TABLET ONE (22:37)
[2023-10-29 22:41] LABS: URINE CRYSTALS FEW /hpf; URINE RBC 76.7 /uL (0-23.9); YEAST NONE SEEN (NEGATIVE)
[2023-10-29] MEDS: PIPERACILLIN/TAZOB 4.5 GM 4.5 GM in DEXTROSE 5%-WATER 100 ML IVPB ONE (22:55)
[2023-10-29] MEDS: APIXABAN 2.5 MG TABLET GT ONE (23:51)
[2023-10-29] MEDS: OXcarbazepine 300 MG/5 ML UNIT DOSE CUPS GT ONE (23:51)
[2023-10-29] MEDS: GLYCOPYRROLATE 1 MG TABLET GT ONE (23:51)
[2023-10-30] MEDS ORDERED: MEROPENEM 1 GM VIAL (RESTRICTED TO ID) IVPB ONE (02:25)
[2023-10-30] MEDS ORDERED: HYDROCORTISONE ACETATE 25 MG/SUPP.RECT RC PRN (02:35)
[2023-10-30] MEDS: MEROPENEM 1 GM in DEXTROSE 5%-WATER 100 ML IVPB ONE (02:54)
[2023-10-30] MEDS: SODIUM CHLORIDE 1,000 ML IV SCH (02:54)
[2023-10-30 08:22] VITALS: RESP 18
[2023-10-30 08:46] LABS: HEMATOCRIT 32.9 % (32.4-45.2); HEMOGLOBIN 11.1 GM/dL (10.7-15.3); MCH 31.4 pg (25.7-33.7); MCHC 33.6 g/dl (32.0-36.0); MEAN CELL VOLUME 93.5 fl (80-96); MEAN PLT VOLUME 9.9 fl (7.5-11.1); PLATELET COUNT 161 10^3/uL (134-434); RBC 3.52 M/mm3 (3.60-5.2); RDW 14.5 % (11.6-15.6); WHITE BLOOD COUNT 3.7 K/mm3 (4.0-10.0)
[2023-10-30 09:25] LABS: CALCIUM 8.4 mg/dL (8.5-10.1)
[2023-10-30 09:26] LABS: ALBUMIN 2.9 g/dl (3.4-5.0); BLOOD UREA NITROGEN 13.1 mg/dL (7-18)
[2023-10-30 09:29] LABS: CREATININE 0.5 mg/dL (0.55-1.3)
[2023-10-30 09:30] LABS: TOT PROT 6.8 g/dl (6.4-8.2)
[2023-10-30 09:31] LABS: BILIRUBIN,TOTAL 0.5 mg/dL (0.2-1)
[2023-10-30] MEDS ORDERED: MEROPENEM 1 GM in DEXTROSE 5%-WATER 100 ML IVPB SCH (10:00)
[2023-10-30] MEDS: AMINO ACIDS/PROTEIN HYDROLYS 30 ML LIQUID.PKT PO SCH (10:15)
[2023-10-30] MEDS: APIXABAN 2.5 MG TABLET GT SCH (10:15)
[2023-10-30] MEDS: MEROPENEM 1 GM in DEXTROSE 5%-WATER 100 ML IVPB SCH (10:15)
[2023-10-30] MEDS: LEVOTHYROXINE NA 50 MCG TABLET (FP) GT SCH (10:22)
[2023-10-30] MEDS: NYSTATIN 100000 UNIT/GM TOPICAL OINTMENT 15 GM TUBE TP SCH (14:08)
[2023-10-30] MEDS: GLYCOPYRROLATE 1 MG TABLET GT SCH ×2 (14:09→23:47)
[2023-10-30] MEDS: MULTIVIT-MINERALS ORAL LIQUID GT SCH (14:09)
[2023-10-30] MEDS: MUPIROCIN 2% TOPICAL OINTMENT 22 GM TUBE TP SCH (14:10)
[2023-10-30] MEDS: SILVER SULFADIAZINE 1% TOP CREAM 400 GM JAR TP SCH (14:11)
[2023-10-30] MEDS: OXcarbazepine 300 MG/5 ML 250 ML BULK BOTTLE GT SCH ×2 (16:16→16:17)
[2023-10-30] MEDS: GLYCOPYRROLATE 1 MG TABLET PO ONE (17:37)
[2023-10-30] MEDS ORDERED: OXcarbazepine 300 MG/5 ML UNIT DOSE CUPS GT SCH (19:00)
[2023-10-30] MEDS: ATORVASTATIN CA 10 MG TABLET (FP) GT SCH (23:46)
[2023-10-31] MEDS: amLODIPine BESYLATE 10 MG TABLET (FP) GT ONE (04:47)
[2023-10-31 08:29] LABS: CALCIUM 8.7 mg/dL (8.5-10.1); CO2 25 mmol/L (21-32); GLUCOSE,RANDOM 89 mg/dL (74-106)
[2023-10-31 08:30] LABS: BLOOD UREA NITROGEN 6.3 mg/dL (7-18)
[2023-10-31 08:33] LABS: CREATININE 0.4 mg/dL (0.55-1.3)
[2023-10-31 08:53] LABS: ANION GAP 7 mmol/L (4-13); CHLORIDE 101 mmol/L (98-107); POTASSIUM 3.6 mmol/L (3.5-5.1); SODIUM 133 mmol/L (136-145)
[2023-10-31] MEDS: amLODIPine BESYLATE 10 MG TABLET (FP) GT SCH (09:36)
[2023-11-01 07:10] VITALS: PULSE 50
[2023-11-01 13:51] VITALS: BP 159/79; TEMP 97.5
== END 2023-11-01 12:58 | disposition home health service (06) | DRG 392 ==
LOC: JER 19:27 → JERBED 22:35 → OBSVTOIN 10-30 01:50 → J6S 10-30 06:21 → J8W 10-31 02:53
PROVIDERS: ADMIT Internal Medicine; ATTEND Nurse Practitioner Family
DX: R19.7 Diarrhea, unspecified (principal); R47.01 Aphasia; N39.0 Urinary tract infection, site not specified; E87.1 Hypo-osmolality and hyponatremia; G30.9 Alzheimer's disease, unspecified; F02.80 Dementia in other diseases classified elsewhere, unspecified severity, without behavioral disturbance, psychotic disturbance, mood disturbance, and anxiety; E03.9 Hypothyroidism, unspecified; E86.0 Dehydration; E78.00 Pure hypercholesterolemia, unspecified; G20.A1 Parkinson's disease without dyskinesia, without mention of fluctuations; G40.909 Epilepsy, unspecified, not intractable, without status epilepticus; I10 Essential (primary) hypertension; L89.152 Pressure ulcer of sacral region, stage 2; Z86.73 Personal history of transient ischemic attack (TIA), and cerebral infarction without residual deficits; Z93.1 Gastrostomy status; Z86.718 Personal history of other venous thrombosis and embolism; Z74.01 Bed confinement status
CPT/HCPCS: 0241U-QW; 36415; 71045-TC-FY; 74177-TC; 80048; 80053; 81003; 82977; 83735; 83930; 84100; 84484; 85025; 85027; 86140; 87086; 87324; 87449; 93005; 93010; 99285-25; G0378; Q9967

== ENCOUNTER 2024-01-24 14:56 | Inpatient (IN) | payer OTHER ==
[2024-01-24 15:30] VITALS: RESP 18
[2024-01-24] MEDS ORDERED: ACETAMINOPHEN INJECTION 100 ML ONE (17:18)
[2024-01-24 17:26] LABS: HEMATOCRIT 35.1 % (32.4-45.2); HEMOGLOBIN 11.8 GM/dL (10.7-15.3); MCH 30.4 pg (25.7-33.7); MCHC 33.7 g/dl (32.0-36.0); MEAN PLT VOLUME 8.7 fl (7.5-11.1); PLATELET COUNT 175 10^3/uL (134-434); RDW 14.1 % (11.6-15.6); WHITE BLOOD COUNT 9.6 K/mm3 (4.0-10.0)
[2024-01-24 17:29] LABS: EPI CELLS >36 /uL (0-25.1); HYALINE CASTS 18 /uL (0-3.1); URINE APPEARANCE TURBID; URINE BACTERIA >9,000 /uL (0-1359); URINE BILIRUBIN NEGATIVE (NEGATIVE); URINE COLOR DK YELLOW; URINE GLUCOSE (UA) NEGATIVE (NEGATIVE); URINE KETONE NEGATIVE (NEGATIVE); URINE LEUK ESTERASE 3+ (NEGATIVE); URINE NITRITE NEGATIVE (NEGATIVE); URINE PROTEIN 1+ (NEGATIVE); URINE WBC 2521 /uL (0-25.8)
[2024-01-24 17:42] LABS: BASO % 0.3 % (0-2.0); EOS % 0.9 % (0-4.5); HEMATOCRIT 31.8 % (32.4-45.2); HEMOGLOBIN 10.9 GM/dL (10.7-15.3); LYMPH % 5.7 % (8-40); MCH 30.7 pg (25.7-33.7); MCHC 34.4 g/dl (32.0-36.0); MEAN CELL VOLUME 89.2 fl (80-96); MEAN PLT VOLUME 8.4 fl (7.5-11.1); MONO % 6.6 % (3.8-10.2); NEUT % 86.5 % (42.8-82.8); PLATELET COUNT 181 10^3/uL (134-434); RBC 3.57 M/mm3 (3.60-5.2); RDW 13.9 % (11.6-15.6); WHITE BLOOD COUNT 8.6 K/mm3 (4.0-10.0)
[2024-01-24] MEDS: ACETAMINOPHEN 1000 MG/100 ML BAG IVPB ONE (17:43)
[2024-01-24 17:58] LABS: POTASSIUM 3.9 mmol/L (3.5-5.1)
[2024-01-24 18:00] LABS: ALBUMIN 2.6 g/dl (3.4-5.0); BLOOD UREA NITROGEN 11.6 mg/dL (7-18)
[2024-01-24 18:01] LABS: ALBUMIN 2.6 g/dl (3.4-5.0); CALCIUM 8.3 mg/dL (8.5-10.1)
[2024-01-24 18:02] LABS: BLOOD UREA NITROGEN 12.2 mg/dL (7-18)
[2024-01-24 18:02] LABS: CREATININE 0.5 mg/dL (0.55-1.3)
[2024-01-24 18:04] LABS: CREATININE 0.5 mg/dL (0.55-1.3)
[2024-01-24 18:06] LABS: BILIRUBIN,TOTAL 0.4 mg/dL (0.2-1); TOT PROT 6.3 g/dl (6.4-8.2)
[2024-01-24 18:09] LABS: BILIRUBIN,TOTAL 0.4 mg/dL (0.2-1); TOT PROT 6.3 g/dl (6.4-8.2)
[2024-01-24] MEDS: SODIUM CHLORIDE 0.9% 1000 ML INFUS.BAG IV ONE (18:27)
[2024-01-24] MEDS ORDERED: PIPERACILLIN/TAZOB 3.375 GM 3.375 GM/50 ML BAG IVPB ONE (18:30)
[2024-01-24 18:32] LABS: URINE RBC 33 /uL (0-23.9)
[2024-01-24 18:33] LABS: URINE CRYSTALS PRESENT /hpf; YEAST NOT PRESENT (NEGATIVE)
[2024-01-24] MEDS: PIPERACILLIN/TAZOB 3.375 GM 3.375 GM in DEXTROSE 5%-WATER - 50 ML IVPB ONE (18:39)
[2024-01-24] MEDS: FLUCONAZOLE 100 MG/NS 50 ML IVPB ONE (21:27)
[2024-01-24] MEDS: APIXABAN 2.5 MG TABLET GT SCH (21:58)
[2024-01-24] MEDS: ATORVASTATIN CA 10 MG TABLET (FP) GT SCH (21:59)
[2024-01-24 23:41] VITALS: BMI 17.6
[2024-01-25] MEDS: PIPERACILLIN/TAZOB 3.375 GM 3.375 GM in DEXTROSE 5%-WATER - 50 ML IVPB SCH ×2 (02:41→18:11)
[2024-01-25] MEDS: SODIUM CHLORIDE 1,000 ML IV SCH (02:42)
[2024-01-25] MEDS: LEVOTHYROXINE NA 50 MCG TABLET (FP) GT SCH (05:22)
[2024-01-25 10:13] LABS: BASO % 0.4 % (0-2.0); EOS % 4.2 % (0-4.5); HEMATOCRIT 28.6 % (32.4-45.2); HEMOGLOBIN 9.8 GM/dL (10.7-15.3); LYMPH % 10.3 % (8-40); MCH 30.7 pg (25.7-33.7); MCHC 34.2 g/dl (32.0-36.0); MEAN CELL VOLUME 89.9 fl (80-96); MEAN PLT VOLUME 8.4 fl (7.5-11.1); MONO % 6.5 % (3.8-10.2); NEUT % 78.6 % (42.8-82.8); PLATELET COUNT 173 10^3/uL (134-434); RBC 3.19 M/mm3 (3.60-5.2); RDW 13.7 % (11.6-15.6); WHITE BLOOD COUNT 6.5 K/mm3 (4.0-10.0)
[2024-01-25] MEDS: amLODIPine BESYLATE 10 MG TABLET (FP) GT SCH (10:31)
[2024-01-25] MEDS: AMINO ACIDS/PROTEIN HYDROLYS 30 ML LIQUID.PKT GT SCH (10:31)
[2024-01-25 10:32] LABS: POTASSIUM 3.9 mmol/L (3.5-5.1)
[2024-01-25 10:37] LABS: ALBUMIN 2.4 g/dl (3.4-5.0); CALCIUM 8.3 mg/dL (8.5-10.1)
[2024-01-25 10:38] LABS: BLOOD UREA NITROGEN 7.6 mg/dL (7-18); MAGNESIUM 2.1 mg/dL (1.8-2.4)
[2024-01-25 10:41] LABS: CREATININE 0.5 mg/dL (0.55-1.3); PHOSPHOROUS 2.7 mg/dL (2.5-4.9)
[2024-01-25 10:42] LABS: BILIRUBIN,TOTAL 0.4 mg/dL (0.2-1)
[2024-01-25] MEDS: OXcarbazepine 300 MG/5 ML 250 ML BULK BOTTLE GT SCH (11:06)
[2024-01-25] MEDS ORDERED: OXcarbazepine 300 MG/5 ML 250 ML BULK BOTTLE GT SCH (14:30)
[2024-01-26] MEDS: PIPERACILLIN/TAZOB 3.375 GM 3.375 GM in DEXTROSE 5%-WATER - 50 ML IVPB SCH (04:36)
[2024-01-26 10:30] LABS: BASO % 0.7 % (0-2.0); EOS % 6.3 % (0-4.5); HEMATOCRIT 30.6 % (32.4-45.2); HEMOGLOBIN 10.2 GM/dL (10.7-15.3); LYMPH % 15.8 % (8-40); MCH 30.5 pg (25.7-33.7); MCHC 33.5 g/dl (32.0-36.0); MEAN CELL VOLUME 90.9 fl (80-96); MEAN PLT VOLUME 8.7 fl (7.5-11.1); MONO % 8.1 % (3.8-10.2); NEUT % 69.1 % (42.8-82.8); PLATELET COUNT 197 10^3/uL (134-434); RBC 3.36 M/mm3 (3.60-5.2); RDW 13.9 % (11.6-15.6); WHITE BLOOD COUNT 5.1 K/mm3 (4.0-10.0)
[2024-01-26 10:51] LABS: POTASSIUM 3.4 mmol/L (3.5-5.1)
[2024-01-26 11:03] LABS: BLOOD UREA NITROGEN 6.2 mg/dL (7-18); CALCIUM 8.5 mg/dL (8.5-10.1); MAGNESIUM 2.3 mg/dL (1.8-2.4)
[2024-01-26 11:06] LABS: CREATININE 0.5 mg/dL (0.55-1.3); PHOSPHOROUS 3.4 mg/dL (2.5-4.9)
[2024-01-26] MEDS: AMOXICILLIN ORAL SUSPENSION - 250 MG/5 ML PEG SCH (14:37)
[2024-01-26] MEDS: POTASSIUM CHLORIDE ORAL LIQUID 20 MEQ/15 ML GT ONE (14:37)
[2024-01-27 07:42] LABS: HEMATOCRIT 28.7 % (32.4-45.2); HEMOGLOBIN 9.9 GM/dL (10.7-15.3); MCH 31.1 pg (25.7-33.7); MCHC 34.4 g/dl (32.0-36.0); MEAN CELL VOLUME 90.4 fl (80-96); MEAN PLT VOLUME 8.6 fl (7.5-11.1); PLATELET COUNT 203 10^3/uL (134-434); RBC 3.17 M/mm3 (3.60-5.2); RDW 13.7 % (11.6-15.6)
[2024-01-27 07:56] LABS: POTASSIUM 3.7 mmol/L (3.5-5.1)
[2024-01-27 08:03] LABS: ALBUMIN 2.2 g/dl (3.4-5.0); BLOOD UREA NITROGEN 9.4 mg/dL (7-18); CALCIUM 8.4 mg/dL (8.5-10.1); MAGNESIUM 2.1 mg/dL (1.8-2.4)
[2024-01-27 08:06] LABS: CREATININE 0.4 mg/dL (0.55-1.3); PHOSPHOROUS 3.4 mg/dL (2.5-4.9)
[2024-01-27 08:07] LABS: BILIRUBIN,TOTAL 0.2 mg/dL (0.2-1); TOT PROT 5.8 g/dl (6.4-8.2)
[2024-01-28 09:12] LABS: HEMATOCRIT 30.9 % (32.4-45.2); HEMOGLOBIN 10.6 GM/dL (10.7-15.3); MCH 30.7 pg (25.7-33.7); MCHC 34.2 g/dl (32.0-36.0); MEAN CELL VOLUME 89.7 fl (80-96); MEAN PLT VOLUME 8.6 fl (7.5-11.1); PLATELET COUNT 247 10^3/uL (134-434); RBC 3.45 M/mm3 (3.60-5.2); WHITE BLOOD COUNT 4.5 K/mm3 (4.0-10.0)
[2024-01-28 09:37] LABS: POTASSIUM 3.8 mmol/L (3.5-5.1)
[2024-01-28 09:46] LABS: ALBUMIN 2.4 g/dl (3.4-5.0); BLOOD UREA NITROGEN 8.4 mg/dL (7-18)
[2024-01-28 09:47] LABS: CALCIUM 8.5 mg/dL (8.5-10.1)
[2024-01-28 09:49] LABS: CREATININE 0.3 mg/dL (0.55-1.3)
[2024-01-28 09:50] LABS: PHOSPHOROUS 3.3 mg/dL (2.5-4.9)
[2024-01-28 09:51] LABS: BILIRUBIN,TOTAL 0.2 mg/dL (0.2-1); TOT PROT 6.2 g/dl (6.4-8.2)
[2024-01-29] MEDS: OXcarbazepine 300 MG/5 ML UNIT DOSE CUPS GT SCH (18:53)
[2024-01-30] MEDS: OXcarbazepine 300 MG/5 ML UNIT DOSE CUPS GT SCH (15:30)
[2024-01-31 14:29] VITALS: BP 164/67; PULSE 68; TEMP 98
== END 2024-01-31 17:35 | disposition home health service (06) | DRG 689 ==
LOC: JER 14:56 → JERBED 19:48 → J6S 23:23
PROVIDERS: ADMIT Internal Medicine; ATTEND Internal Medicine
DX: N39.0 Urinary tract infection, site not specified (principal); R53.2 Functional quadriplegia; E44.0 Moderate protein-calorie malnutrition; Z68.1 Body mass index [BMI] 19.9 or less, adult; R64 Cachexia; G30.9 Alzheimer's disease, unspecified; F02.80 Dementia in other diseases classified elsewhere, unspecified severity, without behavioral disturbance, psychotic disturbance, mood disturbance, and anxiety; G20.A1 Parkinson's disease without dyskinesia, without mention of fluctuations; G40.909 Epilepsy, unspecified, not intractable, without status epilepticus; R19.7 Diarrhea, unspecified; Z93.1 Gastrostomy status; R62.7 Adult failure to thrive; I10 Essential (primary) hypertension; E03.9 Hypothyroidism, unspecified; E78.5 Hyperlipidemia, unspecified
CPT/HCPCS: 0241U-QW; 36415; 70450-TC; 71045-TC-FY; 80048; 80053; 81003; 82438; 82710; 83605; 83735; 83986; 84100; 84302; 84484; 84999; 85025; 85027; 87040; 87045; 87046; 87086; 87186; 87324; 87449; 87798; 93005; 93010; 99285-25; J0131

== ENCOUNTER 2024-03-30 21:19 | Inpatient (IN) | payer OTHER ==
[2024-03-30 22:28] LABS: BASO % 0.4 % (0-2.0); EOS % 1.7 % (0-4.5); HEMATOCRIT 37.4 % (32.4-45.2); HEMOGLOBIN 12.4 GM/dL (10.7-15.3); LYMPH % 27.1 % (8-40); MCH 30.9 pg (25.7-33.7); MCHC 33.1 g/dl (32.0-36.0); MEAN CELL VOLUME 93.4 fl (80-96); MEAN PLT VOLUME 11.3 fl (7.5-11.1); MONO % 9.6 % (3.8-10.2); NEUT % 61.2 % (42.8-82.8); PLATELET COUNT 172 10^3/uL (134-434); RDW 14.6 % (11.6-15.6); WHITE BLOOD COUNT 4.1 K/mm3 (4.0-10.0)
[2024-03-30 22:33] LABS: INR 1.14 (0.83-1.09); PROTHROMBIN TIME (PATIENT) 13.1 SEC (9.7-13.0)
[2024-03-30 22:36] LABS: ACTIVATED PTT 35.8 SECONDS (25.2-36.5)
[2024-03-30] MEDS: SODIUM CHLORIDE 1,000 ML IV SCH (22:39)
[2024-03-30] MEDS ORDERED: ACETAMINOPHEN INJECTION 100 ML ONE (22:52)
[2024-03-30 22:57] LABS: POTASSIUM 3.7 mmol/L (3.5-5.1)
[2024-03-30 22:59] LABS: CALCIUM 9.4 mg/dL (8.5-10.1)
[2024-03-30 23:00] LABS: ALBUMIN 3.2 g/dl (3.4-5.0)
[2024-03-30 23:01] LABS: BLOOD UREA NITROGEN 49.2 mg/dL (7-18)
[2024-03-30 23:03] LABS: CREATININE 0.7 mg/dL (0.55-1.3)
[2024-03-30 23:04] LABS: TOT PROT 8.1 g/dl (6.4-8.2)
[2024-03-30 23:06] LABS: BILIRUBIN,TOTAL 0.2 mg/dL (0.2-1)
[2024-03-30] MEDS: LACTATED RINGERS SOLUTION 1000 ML INFUS.BAG IV ONE (23:42)
[2024-03-30] MEDS: ACETAMINOPHEN 1000 MG/100 ML BAG IVPB ONE (23:42)
[2024-03-31 00:22] LABS: EPI CELLS >36 /uL (0-25.1); HYALINE CASTS 16 /uL (0-3.1); URINE APPEARANCE TURBID; URINE BACTERIA >9,000 /uL (0-1359); URINE BILIRUBIN NEGATIVE (NEGATIVE); URINE COLOR YELLOW; URINE GLUCOSE (UA) NEGATIVE (NEGATIVE); URINE KETONE NEGATIVE (NEGATIVE); URINE LEUK ESTERASE 3+ (NEGATIVE); URINE NITRITE NEGATIVE (NEGATIVE); URINE PROTEIN 1+ (NEGATIVE); URINE WBC 2319 /uL (0-25.8)
[2024-03-31] MEDS ORDERED: CEFTRIAXONE 1 GM/50 ML BAG ONE (00:48)
[2024-03-31] MEDS: CEFTRIAXONE 1,000 MG in DEXTROSE 5%-WATER - 50 ML IVPB ONE (01:08)
[2024-03-31 04:13] LABS: URINE RBC 52.9 /uL (0-23.9); YEAST FEW (NEGATIVE)
[2024-03-31 04:14] LABS: URINE CRYSTALS MODERATE /hpf
[2024-03-31 09:29] LABS: HEMATOCRIT 40.2 % (32.4-45.2); HEMOGLOBIN 12.7 GM/dL (10.7-15.3); MCH 30.1 pg (25.7-33.7); MCHC 31.6 g/dl (32.0-36.0); MEAN CELL VOLUME 95.2 fl (80-96); MEAN PLT VOLUME 11.3 fl (7.5-11.1); PLATELET COUNT 160 10^3/uL (134-434); RBC 4.23 M/mm3 (3.60-5.2); RDW 14.6 % (11.6-15.6); WHITE BLOOD COUNT 4.8 K/mm3 (4.0-10.0)
[2024-03-31 09:43] LABS: POTASSIUM 5.2 mmol/L (3.5-5.1)
[2024-03-31 09:50] LABS: CALCIUM 9.8 mg/dL (8.5-10.1)
[2024-03-31 09:51] LABS: ALBUMIN 3.2 g/dl (3.4-5.0); BLOOD UREA NITROGEN 42.8 mg/dL (7-18); MAGNESIUM 2.9 mg/dL (1.8-2.4)
[2024-03-31 09:59] LABS: CREATININE 0.6 mg/dL (0.55-1.3); PHOSPHOROUS 4.3 mg/dL (2.5-4.9)
[2024-03-31 10:00] LABS: BILIRUBIN,TOTAL 0.4 mg/dL (0.2-1)
[2024-03-31 10:01] LABS: TOT PROT 8.3 g/dl (6.4-8.2)
[2024-03-31] MEDS: amLODIPine BESYLATE 10 MG TABLET (FP) GT SCH (10:27)
[2024-03-31] MEDS: LINEZOLID 600 MG PREMIX BAG 600 MG/300 ML BAG IVPB SCH (10:28)
[2024-03-31] MEDS: MEROPENEM-0.9% SODIUM CHLORIDE 1 GM/50 ML BAG IVPB SCH (10:29)
[2024-03-31] MEDS: SODIUM CHLORIDE 0.45% 1,000 ML IV SCH (10:41)
[2024-03-31] MEDS: GLYCOPYRROLATE 1 MG TABLET GT SCH (10:42)
[2024-03-31] MEDS: APIXABAN 2.5 MG TABLET GT SCH (10:42)
[2024-03-31] MEDS: OXcarbazepine 300 MG/5 ML UNIT DOSE CUPS GT SCH ×2 (10:42→14:51)
[2024-03-31] MEDS: MULTIVIT-MINERALS ORAL LIQUID GT SCH (11:51)
[2024-03-31 16:34] VITALS: BMI 16.9
[2024-03-31] MEDS: DEXTROSE 5%-WATER - 1,000 ML IV SCH (17:14)
[2024-03-31] MEDS: LINEZOLID 600 MG PREMIX BAG 600 MG in PREMIX 300 IVPB SCH (17:53)
[2024-03-31] MEDS: MEROPENEM 1 GM in DEXTROSE 5%-WATER 100 ML IVPB SCH (17:53)
[2024-03-31] MEDS: ERTAPENEM SODIUM 0.5 GM in SODIUM CHLORIDE 50 ML IVPB SCH (21:09)
[2024-03-31] MEDS: ATORVASTATIN CA 10 MG TABLET (FP) GT SCH (21:09)
[2024-04-01] MEDS: LEVOTHYROXINE NA 50 MCG TABLET (FP) GT SCH (06:01)
[2024-04-01 09:33] LABS: BASO % 0.6 % (0-2.0); EOS % 1.1 % (0-4.5); HEMATOCRIT 35.3 % (32.4-45.2); HEMOGLOBIN 11.6 GM/dL (10.7-15.3); LYMPH % 23.1 % (8-40); MCH 30.6 pg (25.7-33.7); MCHC 32.8 g/dl (32.0-36.0); MEAN CELL VOLUME 93.2 fl (80-96); MEAN PLT VOLUME 11.5 fl (7.5-11.1); MONO % 9.2 % (3.8-10.2); PLATELET COUNT 163 10^3/uL (134-434); RBC 3.79 M/mm3 (3.60-5.2); RDW 14.5 % (11.6-15.6)
[2024-04-01 09:56] LABS: POTASSIUM 3.4 mmol/L (3.5-5.1)
[2024-04-01 10:02] LABS: CALCIUM 9.6 mg/dL (8.5-10.1)
[2024-04-01 10:05] LABS: CREATININE 0.6 mg/dL (0.55-1.3)
[2024-04-01 10:07] LABS: BILIRUBIN,TOTAL 0.2 mg/dL (0.2-1); TOT PROT 7.2 g/dl (6.4-8.2)
[2024-04-01] MEDS: POTASSIUM CHLORIDE ORAL LIQUID 20 MEQ/15 ML PO ONE (14:32)
[2024-04-01] MEDS: TETRAHYDROZOLINE HCL EYE DROPS OU SCH (18:11)
[2024-04-01] MEDS: MINERAL OIL/PET HY-PHL TOPICAL OINTMENT 454 GM JAR TP SCH (18:11)
[2024-04-01] MEDS: NYSTATIN 500,000 UNITS/5 ML SUSPENSION PO SCH (23:28)
[2024-04-02 09:24] LABS: POTASSIUM 3.9 mmol/L (3.5-5.1)
[2024-04-02 09:27] LABS: CALCIUM 9.2 mg/dL (8.5-10.1)
[2024-04-02 09:28] LABS: ALBUMIN 2.7 g/dl (3.4-5.0); BLOOD UREA NITROGEN 36.6 mg/dL (7-18)
[2024-04-02 09:30] LABS: CREATININE 0.5 mg/dL (0.55-1.3)
[2024-04-02 09:32] LABS: BILIRUBIN,TOTAL 0.2 mg/dL (0.2-1)
[2024-04-02 09:33] LABS: TOT PROT 6.4 g/dl (6.4-8.2)
[2024-04-03] MEDS: AMINO ACIDS/PROTEIN HYDROLYS 30 ML LIQUID.PKT PO SCH (10:01)
[2024-04-03 12:10] LABS: POTASSIUM 4.2 mmol/L (3.5-5.1)
[2024-04-03 12:12] LABS: CALCIUM 8.7 mg/dL (8.5-10.1)
[2024-04-03 12:13] LABS: ALBUMIN 2.4 g/dl (3.4-5.0); BLOOD UREA NITROGEN 29.1 mg/dL (7-18)
[2024-04-03 12:16] LABS: CREATININE 0.4 mg/dL (0.55-1.3)
[2024-04-03 12:17] LABS: BILIRUBIN,TOTAL 0.3 mg/dL (0.2-1)
[2024-04-03 12:18] LABS: TOT PROT 6.2 g/dl (6.4-8.2)
[2024-04-04] MEDS: DEXTROSE 5%-WATER - 1,000 ML IV SCH (14:13)
[2024-04-04 16:24] VITALS: RESP 18
[2024-04-05 09:58] LABS: POTASSIUM 4.1 mmol/L (3.5-5.1)
[2024-04-05 10:00] LABS: ALBUMIN 2.1 g/dl (3.4-5.0); BLOOD UREA NITROGEN 17.1 mg/dL (7-18); CALCIUM 8.5 mg/dL (8.5-10.1)
[2024-04-05 10:04] LABS: CREATININE 0.4 mg/dL (0.55-1.3)
[2024-04-05 10:05] LABS: BILIRUBIN,TOTAL 0.3 mg/dL (0.2-1)
[2024-04-06] MEDS: ACETAMINOPHEN 650 MG/20.3 ML ORAL SOLUTION (CUPS) GT PRN (08:55)
[2024-04-07 09:38] VITALS: BP 129/64; PULSE 76; TEMP 99.3
[2024-04-07] MEDS: POLYETHYLENE GLYCOL (HEALTHYLAX) 3350 17 GM PACKET GT PRN (09:43)
== END 2024-04-07 10:24 | disposition home or self-care (01) | DRG 689 ==
LOC: JER 21:19 → JERBED 03-31 01:03 → J5S 03-31 04:20
PROVIDERS: ADMIT Internal Medicine; ATTEND Internal Medicine
DX: N39.0 Urinary tract infection, site not specified (principal); E43 Unspecified severe protein-calorie malnutrition; R53.2 Functional quadriplegia; G93.41 Metabolic encephalopathy; Z68.1 Body mass index [BMI] 19.9 or less, adult; E87.0 Hyperosmolality and hypernatremia; R64 Cachexia; E03.9 Hypothyroidism, unspecified; I10 Essential (primary) hypertension; G20.A1 Parkinson's disease without dyskinesia, without mention of fluctuations; G40.909 Epilepsy, unspecified, not intractable, without status epilepticus; G30.9 Alzheimer's disease, unspecified; F02.80 Dementia in other diseases classified elsewhere, unspecified severity, without behavioral disturbance, psychotic disturbance, mood disturbance, and anxiety; E78.5 Hyperlipidemia, unspecified
CPT/HCPCS: 0241U-QW; 36415; 70450-TC; 70496-TC; 70498-TC; 71045-TC-FY; 72170-TC-FY; 73700-TC-RT; 76705-TC; 80053; 80061; 80183; 81003; 82550; 82962; 82977; 83036; 83735; 83930; 84100; 84484; 85025; 85027; 85610; 85730; 86704; 86707; 86708; 86803; 86850; 86900; 86901; 87086; 87186; 87340; 87350; 87517; 87522; 93005; 93010; 97162-GP; 99285-25; J0131

== ENCOUNTER 2024-04-14 21:57 | Inpatient (IN) | payer OTHER ==
[2024-04-14 23:35] LABS: BASO % 1.1 % (0-2.0); EOS % 2.2 % (0-4.5); HEMATOCRIT 31.3 % (32.4-45.2); HEMOGLOBIN 10.3 GM/dL (10.7-15.3); LYMPH % 28.5 % (8-40); MCH 29.9 pg (25.7-33.7); MEAN CELL VOLUME 90.8 fl (80-96); MONO % 13.9 % (3.8-10.2); NEUT % 54.3 % (42.8-82.8); PLATELET COUNT 276 10^3/uL (134-434); RBC 3.44 M/mm3 (3.60-5.2); RDW 14.8 % (11.6-15.6); WHITE BLOOD COUNT 3.9 K/mm3 (4.0-10.0)
[2024-04-14 23:57] LABS: ALBUMIN 2.5 g/dl (3.4-5.0); BLOOD UREA NITROGEN 21.4 mg/dL (7-18); CALCIUM 8.8 mg/dL (8.5-10.1); MAGNESIUM 2.1 mg/dL (1.8-2.4)
[2024-04-14 23:58] LABS: POTASSIUM 4.3 mmol/L (3.5-5.1)
[2024-04-15 00:01] LABS: CREATININE 0.4 mg/dL (0.55-1.3)
[2024-04-15 00:02] LABS: TOT PROT 6.6 g/dl (6.4-8.2)
[2024-04-15 00:23] LABS: BILIRUBIN,TOTAL 0.1 mg/dL (0.2-1)
[2024-04-15] MEDS ORDERED: PIPERACILLIN/TAZOB 4.5 GM 4.5 GM/100 ML BAG IVPB ONE (01:18)
[2024-04-15] MEDS: PIPERACILLIN/TAZOB 4.5 GM 4.5 GM in DEXTROSE 5%-WATER 100 ML IVPB ONE (01:28)
[2024-04-15 01:41] LABS: EPI CELLS 4 /uL (0-25.1); HYALINE CASTS 3 /uL (0-3.1); URINE APPEARANCE CLEAR; URINE BACTERIA 3200 /uL (0-1359); URINE BILIRUBIN NEGATIVE (NEGATIVE); URINE COLOR YELLOW; URINE GLUCOSE (UA) NEGATIVE (NEGATIVE); URINE KETONE NEGATIVE (NEGATIVE); URINE LEUK ESTERASE 3+ (NEGATIVE); URINE NITRITE NEGATIVE (NEGATIVE); URINE PROTEIN NEGATIVE (NEGATIVE); URINE RBC 224 /uL (0-23.9); URINE UROBILINOGEN 0.2 mg/dL (0.2-1.0); URINE WBC 876 /uL (0-25.8)
[2024-04-15] MEDS ORDERED: VANCOMYCIN 1 GRAM (PRE-DOCKED) 1,000 MG/250 ML BAG IVPB ONE (01:47)
[2024-04-15] MEDS ORDERED: ACETAMINOPHEN INJECTION 100 ML ONE (01:47)
[2024-04-15] MEDS: ACETAMINOPHEN 1000 MG/100 ML BAG IVPB ONE (02:01)
[2024-04-15] MEDS: VANCOMYCIN 1,000 MG in DEXTROSE 5%-WATER - 250 ML IVPB ONE (02:23)
[2024-04-15] MEDS ORDERED: POLYETHYLENE GLYCOL (HEALTHYLAX) 3350 17 GM PACKET ONE (02:57)
[2024-04-15] MEDS ORDERED: ENOXAPARIN NA (PORCINE) 40 MG/0.4 ML DISP.SYRIN SQ ONE (02:58)
[2024-04-15] MEDS: POLYETHYLENE GLYCOL (HEALTHYLAX) 3350 17 GM PACKET PO ONE (03:00)
[2024-04-15] MEDS: ENOXAPARIN NA (PORCINE) 40 MG/0.4 ML DISP.SYRIN SQ ONE (03:00)
[2024-04-15] MEDS ORDERED: TETRAHYDROZOLINE HCL EYE DROPS OU PRN (04:46)
[2024-04-15] MEDS: LEVOTHYROXINE NA 50 MCG TABLET (FP) GT SCH (06:43)
[2024-04-15] MEDS: MEROPENEM-0.9% SODIUM CHLORIDE 1 GM/50 ML BAG IVPB SCH (09:54)
[2024-04-15] MEDS: APIXABAN 2.5 MG TABLET GT SCH (09:54)
[2024-04-15] MEDS: amLODIPine BESYLATE 10 MG TABLET (FP) GT SCH (09:54)
[2024-04-15] MEDS: MINERAL OIL/PET HY-PHL TOPICAL OINTMENT 454 GM JAR TP SCH (09:55)
[2024-04-15] MEDS: MULTIVIT-MINERALS ORAL LIQUID GT SCH (09:55)
[2024-04-15] MEDS: OXcarbazepine 300 MG/5 ML 250 ML BULK BOTTLE GT SCH ×2 (09:56→14:50)
[2024-04-15] MEDS ORDERED: ENOXAPARIN NA (PORCINE) 40 MG/0.4 ML DISP.SYRIN SQ SCH (10:00)
[2024-04-15] MEDS: PIPERACILLIN/TAZOB 3.375 GM 50 ML IVPB SCH (12:29)
[2024-04-15] MEDS: POLYETHYLENE GLYCOL (HEALTHYLAX) 3350 17 GM PACKET PO PRN (14:50)
[2024-04-15 15:00] VITALS: BMI 19.3
[2024-04-15] MEDS: AMINO ACIDS/PROTEIN HYDROLYS 30 ML LIQUID.PKT GT SCH (18:04)
[2024-04-15] MEDS: ACETAMINOPHEN 650 MG/20.3 ML ORAL SOLUTION (CUPS) GT SCH (18:51)
[2024-04-15] MEDS: PATIENT'S OWN MEDICATION (NON-FORMULARY) (Acetaminophen [8 Hour Pain Relief] 650 MG Tablet PO SCH (19:33)
[2024-04-15] MEDS: ASCORBIC ACID 500 MG/5 ML UNIT DOSE CUP GT SCH (21:33)
[2024-04-15] MEDS: ATORVASTATIN CA 40 MG TABLET (FP) GT SCH (21:33)
[2024-04-15] MEDS: GLYCOPYRROLATE 1 MG TABLET GT SCH (21:34)
[2024-04-15] MEDS: ARTIFICIAL TEARS OPHTHALMIC DROPS OU PRN (21:34)
[2024-04-16] MEDS ORDERED: VANCOMYCIN/WATER FOR INJ (PEG) 750 MG/150 ML BAG IVPB SCH (02:00)
[2024-04-16] MEDS ORDERED: VANCOMYCIN 750 MG in DEXTROSE 5%-WATER - 150 ML IVPB SCH (02:23)
[2024-04-16] MEDS: ZINC SULFATE 220 MG CAPSULE (FP) GT SCH (09:38)
[2024-04-16 09:48] LABS: BASO % 0.5 % (0-2.0); EOS % 3.9 % (0-4.5); HEMATOCRIT 32.8 % (32.4-45.2); HEMOGLOBIN 10.6 GM/dL (10.7-15.3); LYMPH % 14.8 % (8-40); MCH 29.6 pg (25.7-33.7); MCHC 32.4 g/dl (32.0-36.0); MEAN CELL VOLUME 91.2 fl (80-96); MONO % 14.7 % (3.8-10.2); NEUT % 66.1 % (42.8-82.8); PLATELET COUNT 298 10^3/uL (134-434); RDW 14.7 % (11.6-15.6); WHITE BLOOD COUNT 5.1 K/mm3 (4.0-10.0)
[2024-04-16 10:20] LABS: POTASSIUM 4.2 mmol/L (3.5-5.1)
[2024-04-16 10:22] LABS: ALBUMIN 2.5 g/dl (3.4-5.0); BLOOD UREA NITROGEN 15.7 mg/dL (7-18)
[2024-04-16 10:26] LABS: CREATININE 0.5 mg/dL (0.55-1.3)
[2024-04-16 10:27] LABS: BILIRUBIN,TOTAL 0.2 mg/dL (0.2-1); TOT PROT 6.7 g/dl (6.4-8.2)
[2024-04-16] MEDS: PIPERACILLIN/TAZOB 3.375 GM 50 ML IVPB SCH (12:03)
[2024-04-16 19:53] VITALS: RESP 18
[2024-04-17] MEDS: PIPERACILLIN/TAZOB 3.375 GM 3.375 GM in DEXTROSE 5%-WATER - 50 ML IVPB SCH (08:08)
[2024-04-17] MEDS: MEROPENEM 1 GM in DEXTROSE 5%-WATER 100 ML IVPB SCH (08:14)
[2024-04-17] MEDS: MEROPENEM 1 GM PUSH 1 GM/20 ML DISP.SYRIN IVPUSH SCH (08:14)
[2024-04-17 10:10] LABS: POTASSIUM 4.1 mmol/L (3.5-5.1)
[2024-04-17 10:17] LABS: ALBUMIN 2.3 g/dl (3.4-5.0); CALCIUM 8.7 mg/dL (8.5-10.1)
[2024-04-17 10:18] LABS: BLOOD UREA NITROGEN 23.8 mg/dL (7-18)
[2024-04-17 10:19] LABS: CREATININE 0.4 mg/dL (0.55-1.3)
[2024-04-17 10:20] LABS: BILIRUBIN,TOTAL 0.2 mg/dL (0.2-1); TOT PROT 5.9 g/dl (6.4-8.2)
[2024-04-17 11:05] LABS: BASO % 0.6 % (0-2.0); HEMATOCRIT 29.5 % (32.4-45.2); HEMOGLOBIN 9.6 GM/dL (10.7-15.3); LYMPH % 27.1 % (8-40); MCH 29.9 pg (25.7-33.7); MCHC 32.6 g/dl (32.0-36.0); MEAN CELL VOLUME 91.9 fl (80-96); MEAN PLT VOLUME 9.4 fl (7.5-11.1); NEUT % 53.3 % (42.8-82.8); PLATELET COUNT 259 10^3/uL (134-434); RBC 3.21 M/mm3 (3.60-5.2); RDW 14.9 % (11.6-15.6); WHITE BLOOD COUNT 3.5 K/mm3 (4.0-10.0)
[2024-04-17] MEDS: TETRAHYDROZOLINE HCL EYE DROPS OU PRN (16:55)
[2024-04-18 10:24] VITALS: BP 126/52; PULSE 70; TEMP 98.6
== END 2024-04-18 10:41 | disposition home or self-care (01) | DRG 193 ==
LOC: JER 21:57 → JERBED 04-15 01:17 → J5S 04-15 03:38 → OBSVTOIN 04-15 03:41
PROVIDERS: ADMIT Internal Medicine
DX: J18.9 Pneumonia, unspecified organism (principal); E43 Unspecified severe protein-calorie malnutrition; G82.20 Paraplegia, unspecified; N39.0 Urinary tract infection, site not specified; E87.0 Hyperosmolality and hypernatremia; Z68.1 Body mass index [BMI] 19.9 or less, adult; I82.502 Chronic embolism and thrombosis of unspecified deep veins of left lower extremity; G30.9 Alzheimer's disease, unspecified; F02.80 Dementia in other diseases classified elsewhere, unspecified severity, without behavioral disturbance, psychotic disturbance, mood disturbance, and anxiety; G20.A1 Parkinson's disease without dyskinesia, without mention of fluctuations; G40.909 Epilepsy, unspecified, not intractable, without status epilepticus; I10 Essential (primary) hypertension; E03.9 Hypothyroidism, unspecified; Z93.1 Gastrostomy status; D64.9 Anemia, unspecified; K59.00 Constipation, unspecified; E78.5 Hyperlipidemia, unspecified
CPT/HCPCS: 36415; 70450-TC; 71045-TC-FY; 80053; 81003; 82728; 83540; 83550; 83735; 85025; 87086; 87186; 93005; 93010; 93970-TC; 99285-25; G0378; J0131

== ENCOUNTER 2024-07-29 13:16 | Observation (INO) | payer OTHER ==
[2024-07-29] MEDS ORDERED: ACETAMINOPHEN INJECTION 100 ML ONE (14:50)
[2024-07-29] MEDS: ACETAMINOPHEN 1000 MG/100 ML BAG IVPB ONE (15:16)
[2024-07-29] MEDS: SODIUM CHLORIDE 0.9% 500 ML INFUS.BAG IV ONE (15:16)
[2024-07-29 15:40] LABS: BASO % 0.3 % (0-2.0); EOS % 1.3 % (0-4.5); HEMATOCRIT 35.6 % (32.4-45.2); HEMOGLOBIN 11.5 GM/dL (10.7-15.3); LYMPH % 17.3 % (8-40); MCH 28.8 pg (25.7-33.7); MCHC 32.2 g/dl (32.0-36.0); MEAN CELL VOLUME 89.3 fl (80-96); MEAN PLT VOLUME 10.5 fl (7.5-11.1); MONO % 11.1 % (3.8-10.2); PLATELET COUNT 146 10^3/uL (134-434); RBC 3.99 M/mm3 (3.60-5.2); RDW 15.1 % (11.6-15.6); WHITE BLOOD COUNT 7.2 K/mm3 (4.0-10.0)
[2024-07-29 15:47] LABS: INR 1.17 (0.83-1.09); PROTHROMBIN TIME (PATIENT) 12.8 SEC (9.7-13.0)
[2024-07-29 15:49] LABS: ACTIVATED PTT 33.8 SECONDS (25.2-36.5); EPI CELLS 18 /uL (0-25.1); HYALINE CASTS 4 /uL (0-3.1); URINE APPEARANCE CLEAR; URINE BACTERIA 4 /uL (0-1359); URINE BILIRUBIN NEGATIVE (NEGATIVE); URINE COLOR YELLOW; URINE GLUCOSE (UA) NEGATIVE (NEGATIVE); URINE KETONE NEGATIVE (NEGATIVE); URINE LEUK ESTERASE TRACE (NEGATIVE); URINE NITRITE NEGATIVE (NEGATIVE); URINE PROTEIN NEGATIVE (NEGATIVE); URINE WBC 89 /uL (0-25.8)
[2024-07-29 16:14] LABS: URINE RBC 28.9 /uL (0-23.9)
[2024-07-29 16:19] LABS: POTASSIUM 3.7 mmol/L (3.5-5.1)
[2024-07-29 16:22] LABS: ALBUMIN 2.8 g/dl (3.4-5.0); CALCIUM 9.1 mg/dL (8.5-10.1); MAGNESIUM 2.5 mg/dL (1.8-2.4)
[2024-07-29 16:25] LABS: CREATININE 0.5 mg/dL (0.55-1.3)
[2024-07-29 16:26] LABS: PHOSPHOROUS 3.7 mg/dL (2.5-4.9)
[2024-07-29 16:27] LABS: BILIRUBIN,TOTAL 0.2 mg/dL (0.2-1); TOT PROT 7.3 g/dl (6.4-8.2)
[2024-07-30] MEDS: SODIUM CHLORIDE 1,000 ML IV SCH (01:27)
[2024-07-30] MEDS: OXcarbazepine 300 MG/5 ML UNIT DOSE CUPS GT SCH ×3 (01:28→20:01)
[2024-07-30] MEDS: AMPICILLIN NA/SULBACTAM NA 1.5 GM in SODIUM CHLORIDE 100 ML IVPB SCH ×2 (01:29→20:01)
[2024-07-30] MEDS: APIXABAN 2.5 MG TABLET GT SCH (01:30)
[2024-07-30] MEDS: LEVOTHYROXINE NA 50 MCG TABLET (FP) GT SCH (06:00)
[2024-07-30] MEDS: amLODIPine BESYLATE 10 MG TABLET (FP) GT SCH (09:10)
[2024-07-30] MEDS: GLYCOPYRROLATE 1 MG TABLET GT SCH (09:29)
[2024-07-30] MEDS: MINERAL OIL/PET HY-PHL TOPICAL OINTMENT 454 GM JAR TP SCH (13:27)
[2024-07-30 15:17] VITALS: BMI 23.0
[2024-07-30] MEDS: TETRAHYDROZOLINE HCL EYE DROPS OU SCH (17:21)
[2024-07-30] MEDS: FLUCONAZOLE 40 MG/ML SUSPENSION GT SCH (21:32)
[2024-07-30] MEDS: ATORVASTATIN CA 10 MG TABLET (FP) GT SCH (21:32)
[2024-07-31 04:40] VITALS: RESP 18
[2024-07-31] MEDS ORDERED: NITROFURANTOIN MONOHYD/M-CRYST 100 MG CAPSULE PO SCH (10:00)
[2024-07-31] MEDS ORDERED: AMPICILLIN NA/SULBACTAM NA 1.5 GM VIAL ONE (21:03)
[2024-08-01 13:43] VITALS: BP 137/85; PULSE 90; TEMP 98.5
== END 2024-08-01 13:59 | disposition home health service (06) ==
LOC: JER 13:16 → JERBED 19:29 → J8W 07-30 00:04
PROVIDERS: ADMIT Internal Medicine; ATTEND Student in an Organized Health Care Education/Training Program
PROC: 3E033NZ Introduction of Analgesics, Hypnotics, Sedatives into Peripheral Vein, Percutaneous Approach (ICD-10-PCS; principal; 2024-07-29)
PROC: 3E03329 Introduction of Other Anti-infective into Peripheral Vein, Percutaneous Approach (ICD-10-PCS; 2024-07-29)
PROC: 3E033NZ Introduction of Analgesics, Hypnotics, Sedatives into Peripheral Vein, Percutaneous Approach (ICD-10-PCS; 2024-07-29)
PROC: 3E0337Z Introduction of Electrolytic and Water Balance Substance into Peripheral Vein, Percutaneous Approach (ICD-10-PCS; 2024-07-29)
DX: N39.0 Urinary tract infection, site not specified (principal); G93.41 Metabolic encephalopathy; G20.A1 Parkinson's disease without dyskinesia, without mention of fluctuations; G30.9 Alzheimer's disease, unspecified; R56.9 Unspecified convulsions; Z93.1 Gastrostomy status; Z87.440 Personal history of urinary (tract) infections; E46 Unspecified protein-calorie malnutrition; Z91.018 Allergy to other foods
CPT/HCPCS: 0241U-QW; 36415; 70450-TC; 71045-TC-FY; 71260-TC; 80053; 81003; 83735; 84100; 84484; 85025; 85610; 85730; 87086; 96361; 96365; 96375; 97161-GP; 99285-25; G0378; J0131

== ENCOUNTER 2024-11-24 15:28 | Inpatient (IN) | payer OTHER ==
[2024-11-24] MEDS ORDERED: ACETAMINOPHEN INJECTION 100 ML ONE (16:33)
[2024-11-24] MEDS: ACETAMINOPHEN 1000 MG/100 ML BAG IVPB ONE (17:30)
[2024-11-24] MEDS: SODIUM CHLORIDE 0.9% 500 ML INFUS.BAG IV ONE (17:30)
[2024-11-24 18:00] LABS: ABSOLUTE IMMATURE GRANULOCYTES 0.03 x10^3/uL (0.0-0.031); BASOPHILS # 0.04 x10^3/uL (0.01-0.08); EOSINOPHIL % 0.8 % (0.7-5.8); EOSINOPHILS # 0.05 x10^3/uL (0.04-0.36); MCHC 31.3 g/dl (32.2-35.5); MEAN CELL VOLUME 92.7 fl (79.4-94.8); MEAN PLT VOLUME 12.1 fl (9.4-12.3); MONOCYTE # 0.49 x10^3/uL (0.24-0.86); MONOCYTE % 7.4 % (4.7-12.5); RDW 14.5 % (12.5-17.0)
[2024-11-24 18:15] LABS: BG HCT 42.0 % (32.4-45.2); VENOUS BASE EXCESS -1.1 mmol/L (-2-2); VENOUS O2 SATURATION 84.7 % (70-80); VENOUS PCO2 35.5 mmHg (38-52); VENOUS PH 7.425 (7.310-7.410)
[2024-11-24 18:28] LABS: CO2 25.0 mmol/L (21-32); GLUCOSE,RANDOM 114.0 mg/dL (74-106)
[2024-11-24 18:31] LABS: CREATININE 0.5 mg/dL (0.55-1.3); SGOT/AST 20.0 U/L (15-37); SGPT/ALT 19.0 U/L (13-61)
[2024-11-24 18:33] LABS: TOT PROT 8.8 g/dl (6.4-8.2)
[2024-11-24 18:34] LABS: ALK PHOS 251.0 U/L (45-117)
[2024-11-24] MEDS: OXcarbazepine 150 MG TABLET (UD) PO ONE (19:39)
[2024-11-24 20:18] LABS: EPI CELLS 2 /uL (0-25.1); HYALINE CASTS 1 /uL (0-3.1); URINE APPEARANCE CLOUDY; URINE BACTERIA 3840 /uL (0-1359); URINE BILIRUBIN NEGATIVE (NEGATIVE); URINE COLOR YELLOW; URINE GLUCOSE (UA) NEGATIVE (NEGATIVE); URINE KETONE NEGATIVE (NEGATIVE); URINE LEUK ESTERASE 2+ (NEGATIVE); URINE NITRITE POSITIVE (NEGATIVE); URINE PROTEIN TRACE (NEGATIVE); URINE RBC 13 /uL (0-23.9); URINE UROBILINOGEN 0.2 mg/dL (0.2-1.0); URINE WBC 371 /uL (0-25.8)
[2024-11-24] MEDS: CLOTRIMAZOLE 10 MG TROCHE PO ONE (20:46)
[2024-11-24] MEDS: OXcarbazepine 300 MG/5 ML 250 ML BULK BOTTLE GT ONE (20:46)
[2024-11-24] MEDS ORDERED: PIPERACILLIN/TAZOB 2.25 GM 2.25 GM in DEXTROSE 5%-WATER - 50 ML IVPB SCH (21:45)
[2024-11-24] MEDS: SODIUM CHLORIDE 1,000 ML IV SCH (21:52)
[2024-11-24] MEDS: PIPERACILLIN/TAZOB 2.25 GM 2.25 GM in DEXTROSE 5%-WATER - 50 ML IVPB SCH (21:52)
[2024-11-24] MEDS: APIXABAN 2.5 MG TABLET GT SCH (22:51)
[2024-11-24] MEDS: OXcarbazepine 300 MG/5 ML UNIT DOSE CUPS GT SCH (22:57)
[2024-11-24] MEDS: OXcarbazepine 300 MG/5 ML 250 ML BULK BOTTLE GT SCH (23:21)
[2024-11-25] MEDS: LEVOTHYROXINE NA 50 MCG TABLET (FP) GT SCH (05:58)
[2024-11-25] MEDS: SODIUM CHLORIDE 1,000 ML IV SCH (05:58)
[2024-11-25] MEDS: GLYCOPYRROLATE 1 MG TABLET GT SCH (10:41)
[2024-11-25] MEDS: amLODIPine BESYLATE 10 MG TABLET (FP) GT SCH (10:41)
[2024-11-25] MEDS: OXcarbazepine 300 MG/5 ML UNIT DOSE CUPS GT SCH ×2 (10:43→14:20)
[2024-11-25] MEDS: TETRAHYDROZOLINE HCL EYE DROPS OU SCH (10:44)
[2024-11-25] MEDS: OXcarbazepine 300 MG/5 ML 250 ML BULK BOTTLE GT SCH (11:18)
[2024-11-25 11:21] LABS: MCHC 30.3 g/dl (32.2-35.5); MEAN CELL VOLUME 95.4 fl (79.4-94.8); MEAN PLT VOLUME 12.2 fl (9.4-12.3); RDW 14.6 % (12.5-17.0)
[2024-11-25 11:54] LABS: CO2 23.0 mmol/L (21-32); GLUCOSE,RANDOM 129.0 mg/dL (74-106)
[2024-11-25 11:57] LABS: CREATININE 0.5 mg/dL (0.55-1.3); SGPT/ALT 15.0 U/L (13-61)
[2024-11-25 11:58] LABS: SGOT/AST 20.0 U/L (15-37)
[2024-11-25 11:59] LABS: TOT PROT 7.5 g/dl (6.4-8.2)
[2024-11-25 12:15] LABS: ALK PHOS 209.0 U/L (45-117)
[2024-11-25 12:51] LABS: HIV INTERPRETATION NEGATIVE (NEGATIVE)
[2024-11-25] MEDS: AMPICILLIN NA/SULBACTAM NA 3 GM in SODIUM CHLORIDE 100 ML IVPB SCH (14:19)
[2024-11-25] MEDS: FLUCONAZOLE 100 MG TABLET (UD) GT SCH (20:28)
[2024-11-25] MEDS: POLYETHYLENE GLYCOL (HEALTHYLAX) 3350 17 GM PACKET PO SCH (21:25)
[2024-11-25] MEDS: ATORVASTATIN CA 10 MG TABLET (FP) GT SCH (21:26)
[2024-11-26] MEDS: SENNOSIDES 8.8 MG/5 ML SYRUP PO ONE ×2 (00:05→01:30)
[2024-11-26 07:54] LABS: MCHC 30.7 g/dl (32.2-35.5); MEAN CELL VOLUME 94.8 fl (79.4-94.8); MEAN PLT VOLUME 12.3 fl (9.4-12.3); RDW 14.5 % (12.5-17.0)
[2024-11-26 08:19] LABS: GLUCOSE,RANDOM 115.0 mg/dL (74-106)
[2024-11-26 08:20] LABS: CO2 25.0 mmol/L (21-32)
[2024-11-26 08:22] LABS: CREATININE 0.4 mg/dL (0.55-1.3); SGPT/ALT 14.0 U/L (13-61)
[2024-11-26 08:24] LABS: TOT PROT 6.6 g/dl (6.4-8.2)
[2024-11-26 08:25] LABS: SGOT/AST 18.0 U/L (15-37)
[2024-11-26 08:31] LABS: ALK PHOS 173.0 U/L (45-117)
[2024-11-26] MEDS: FOSFOMYCIN TROMETHAMINE 3 GM/PKT FOR ORAL SOLUTION GT ONE (12:20)
[2024-11-26] MEDS: ZINC OXIDE 20% TOPICAL OINTMENT 30 GM TUBE TP SCH (21:43)
[2024-11-27 08:39] LABS: ABSOLUTE IMMATURE GRANULOCYTES 0.01 x10^3/uL (0.0-0.031); BASOPHILS # 0.03 x10^3/uL (0.01-0.08); EOSINOPHIL % 2.5 % (0.7-5.8); EOSINOPHILS # 0.10 x10^3/uL (0.04-0.36); MCHC 31.2 g/dl (32.2-35.5); MEAN CELL VOLUME 94.9 fl (79.4-94.8); MEAN PLT VOLUME 12.3 fl (9.4-12.3); MONOCYTE # 0.45 x10^3/uL (0.24-0.86); MONOCYTE % 11.2 % (4.7-12.5); RDW 14.4 % (12.5-17.0)
[2024-11-27 09:08] LABS: CO2 27.0 mmol/L (21-32); GLUCOSE,RANDOM 106.0 mg/dL (74-106)
[2024-11-27 09:11] LABS: CREATININE 0.4 mg/dL (0.55-1.3); SGOT/AST 27.0 U/L (15-37); SGPT/ALT 20.0 U/L (13-61)
[2024-11-27 09:12] LABS: TOT PROT 6.9 g/dl (6.4-8.2)
[2024-11-27 09:13] LABS: ALK PHOS 185.0 U/L (45-117)
[2024-11-27] MEDS: MULTIVITAMINS (DAILY MVI) TABLET (FP) PO SCH (10:08)
[2024-11-27] MEDS: ASCORBIC ACID 250 MG TABLET (FP) PO SCH (10:08)
[2024-11-27] MEDS: ZINC SULFATE 220 MG CAPSULE (FP) PO SCH (10:08)
[2024-11-27 10:36] VITALS: BMI 20.6
[2024-11-28 09:14] LABS: GLUCOSE,RANDOM 117.0 mg/dL (74-106)
[2024-11-28 09:17] LABS: ALK PHOS 178.0 U/L (45-117)
[2024-11-28 09:18] LABS: CO2 25.0 mmol/L (21-32); CREATININE 0.4 mg/dL (0.55-1.3); SGOT/AST 20.0 U/L (15-37); SGPT/ALT 18.0 U/L (13-61); TOT PROT 6.4 g/dl (6.4-8.2)
[2024-11-29] MEDS: SILVER SULFADIAZINE 1% TOP CREAM 400 GM JAR TP SCH (16:00)
[2024-11-29] MEDS: MUPIROCIN CA 2% TOPICAL CREAM 15 GM TUBE TP SCH (16:01)
[2024-11-29] MEDS ORDERED: AMINO ACIDS/PROTEIN HYDROLYS 30 ML LIQUID.PKT PO SCH (20:00)
[2024-11-29] MEDS: AMINO ACIDS/PROTEIN HYDROLYS 30 ML LIQUID.PKT GT SCH (21:46)
[2024-11-29] MEDS: POLYETHYLENE GLYCOL (HEALTHYLAX) 3350 17 GM PACKET GT SCH (22:59)
[2024-11-30 06:48] VITALS: PULSE 64
[2024-11-30 17:42] VITALS: BP 117/56; RESP 16; TEMP 97.5
== END 2024-11-30 16:00 | disposition home or self-care (01) | DRG 689 ==
LOC: JER 15:28 → JERBED 19:30 → J6S 20:48
PROVIDERS: ADMIT Student in an Organized Health Care Education/Training Program; ATTEND Internal Medicine
DX: N39.0 Urinary tract infection, site not specified (principal); R53.2 Functional quadriplegia; R64 Cachexia; E87.0 Hyperosmolality and hypernatremia; Z68.1 Body mass index [BMI] 19.9 or less, adult; I10 Essential (primary) hypertension; G40.909 Epilepsy, unspecified, not intractable, without status epilepticus; G30.9 Alzheimer's disease, unspecified; F02.80 Dementia in other diseases classified elsewhere, unspecified severity, without behavioral disturbance, psychotic disturbance, mood disturbance, and anxiety; G20.A1 Parkinson's disease without dyskinesia, without mention of fluctuations; R62.7 Adult failure to thrive; E83.52 Hypercalcemia; E03.9 Hypothyroidism, unspecified; B37.9 Candidiasis, unspecified; L89.152 Pressure ulcer of sacral region, stage 2
CPT/HCPCS: 36415; 71045-TC-FY; 80053; 80183; 81003; 82570; 82803; 83605; 83735; 84100; 84155; 84156; 84165; 84166; 84300; 84436; 84443; 84481; 84484; 85025; 85027; 86376; 87040; 87086; 87389; 87637-QW; 93005; 93010; 97161-GP; 99285-25